=== PATIENT | male | born 1940 | race Caucasian/White ===

== ENCOUNTER 2016-04-04 14:14 | Inpatient (IN) | payer OTHER, BC ==
[~2016-04-04] VITALS: Ht 182.9 cm; Wt 112.5 kg
[~2016-04-04 14:14] MED LIST: CMD5 PO; CTP1X PO; LOSA100T26 PO; LSX20 PO; MBXC PO; POTA1POW PO; PROTONIX IV; WARF5TAB90 PO
[2016-04-04] MEDS ORDERED: HydrALAZINE HCL 20 MG/ML VIAL IV. STA (14:48)
[2016-04-04 15:09] LABS: BASO % 0.3 %; BASO ABS # 0.02 K/uL (0-0.2); COMPLETE YES; EOS % 1.2 %; HEMATOCRIT 46.7 % (42-52); LYMPH % 11.6 %; LYMPH ABS # 0.67 K/uL (1.2-3.4); MEAN CELL VOLUME 88.4 fL (80-100); MEAN CORPUSCULAR HEMOGLOBIN 29.2 pg (25-34); MEAN PLATELET VOLUME 10.7 fL (7.4-10.4); MONO % 11.6 %; NEUT % 75.3 %; PLATELET COUNT 149 K/uL (130-400); RED BLOOD COUNT 5.28 M/uL (4.7-6.1); WHITE BLOOD COUNT 5.78 K/uL (4.8-10.8)
[2016-04-04 15:10] LABS: INR 1.5 (0.9-1.1); PROTHROMBIN TIME (PATIENT) 16.8 SECONDS (9.0-12.0)
[2016-04-04 15:11] LABS: BUN/CREATININE RATIO 14.6 (10-20); CALCIUM 9.5 mg/dl (8.5-10.1); CREATININE 1.4 mg/dl (0.60-1.40); POTASSIUM 3.4 mmol/L (3.5-5.1)
[2016-04-04] MEDS ORDERED: CLONIDINE HCL 0.1 MG TAB PO ONE (15:30)
[2016-04-04] MEDS ORDERED: MAGN400T6 PO (15:35)
[2016-04-04] MEDS ORDERED: FERR50TA3 (15:35)
[2016-04-04] MEDS ORDERED: LOSA1TAB38 PO (15:35)
[2016-04-04] MEDS ORDERED: CLON0.2T PO (15:35)
[2016-04-04] MEDS ORDERED: CYAN100073 PO (15:35)
--- NOTE | 2016-04-04 15:42 | EMERGENCY ROOM VISIT NOTE ---
History First contact with patient: 14:44 Chief Complaint: HYPERTENSION Stated Complaint: DOUBLE VISION AND HIGH BLOOD PRESSURE History of Present Illness The patient is a 75 year old male who presents to the Emergency Room with complaints of double vision. Patient was playing with granddaughter 2 days ago when the double vision suddenly came on. He denies blurred vision, eye pain, flashes or floaters or pain with eye movements. The double vision has been stable and persistent. He did stop taking his Clonidine at that time as well because he thought it might help improve his symptoms bit it did not. He denies any auditory/acoustic symptoms including hearing loss, vertigo. He has long-standing stable tinnitus. He denies any aphasia or dysphasia. He has had no focal weakness or altered sensation. He continues to ambulate without difficulty. Given his symptoms, he was seen by the demolition crane operator this morning. He was also noted to be hypertensive with a BP of 170/110. They recommended ED for further evaluation. At present he continues to have double vision. which is vertical. He only gets double vision when looking with both eyes. His double vision is in all directions. He sees vertically overlapping images. Regarding his blood pressure, he denies chest pain, shortness of breath, headache or swelling. Review of Systems A 10 point review of systems was negative unless stated above. Past Medical/Surgical History Medical Problems: (1) Atrial Fibrillation (2) GI bleed (3) Heart Valve Transplant (4) History of oral cancer (5) Hypertension (6) Hypertension Nos (7) Tinnitus Nos Surgical Problems: (1) H/O mitral valve replacement with mechanical valve (2) History of dental surgery (3) History of mandibular surgery (4) S/P cholecystectomy (5) S/P ERCP Family History Diabetes mellitus SISTER Heart disease Social History Smoking Status: Never Smoker Smokeless Tobacco Use: No Alcohol Use: none Drug Use: none Marital Status: Housing Status: lives with family Occupation Status: retired Current/Historical Medications Scheduled Clonidine Hcl (Catapres), 1 TAB PO BID Losartan Potassium (Cozaar), 1 TAB PO DAILY Warfarin Sod (Coumadin), 2.5 MG PO UD Warfarin Sodium (Coumadin), 5 MG PO UD Miscellaneous Medications Cyanocobalamin (B12) Ferrous Sulfate (Iron (Ferrous Sulfate)), 65 MG Magnesium Oxide (Mag-Ox), 400 MG PO Allergies Coded Allergies: Allopurinol (Unverified Allergy, Unknown, unknown, 04/04/16) Lisinopril (Verified Adverse Reaction, Unknown, COUGH, 01/12/16) Physical Exam Vital Signs Date Time Temp Pulse Resp B/P Pulse Ox O2 Delivery O2 Flow Rate FiO2 04/04/16 17:45 59 140/82 04/04/16 17:24 68 22 182/107 94 04/04/16 16:45 138/87 04/04/16 16:31 69 161/93 04/04/16 16:00 65 194/119 04/04/16 15:47 70 22 212/99 94 Room Air 04/04/16 15:30 73 201/112 04/04/16 15:20 78 232/127 04/04/16 15:10 69 217/129 04/04/16 15:02 71 218/144 95 04/04/16 14:55 70 04/04/16 14:36 76 263/140 04/04/16 14:30 36.8 78 18 237/154 91 Room Air Pain Rating (0-10): 0 Physical Exam Constitutional: Vital signs as above were reviewed. Eyes: Pupils equal, round, and reactive to light. Extraocular muscles are intact. No proptosis. No photophobia. Fundi could not be visualized as a pupils were not adequately dilating with light ENT: Mucous membranes are moist. Oropharynx is clear. No sinus tenderness. TMs are clear bilaterally. Cardiovascular: Heart with a regular rate and rhythm. Pulses are palpable and symmetric in all 4 extremities. No pedal edema appreciated. Respiratory: Lungs clear to auscultation bilaterally. No wheezes, rales, or rhonchi appreciated. No accessory muscle use. No retractions. No increased work of breathing. GI: Abdomen soft, nontender, nondistended. Normal active bowel sounds. No abdominal hernias appreciated. No rebound. No guarding. : No CVA tenderness appreciated. Musculoskeletal: No midline cervical or vertebral tenderness. No gross deformities. No bony tenderness. No calf swelling or tenderness. Integumentary: Warm, dry, no rashes appreciated. Neurological: Patient awake, alert, and oriented x 3. Cranial nerves two through 12 grossly intact. Motor 5 out of 5 strength bilateral upper and lower extremities. Normal EOMI, Pupils equal round and reactive Negative Pronator Drift Normal finger-nose testing Lymph: No cervical lymphadenopathy appreciated. Medical Decision & Procedures ER Provider Diagnostic Interpretation: CT OF THE HEAD WITHOUT CONTRAST CLINICAL HISTORY: Diplopia, on coumadin; rule out bleed COMPARISON STUDY: No previous studies for comparison. CT DOSE: 537.48 mGy.cm TECHNIQUE: Helical axial images of the head were obtained without IV contrast. Automated exposure control was utilized for the study. FINDINGS: No acute intracranial hemorrhage, midline shift or mass effect is present. Ventricular system is normal. The basilar cisterns are patent. There are no extra-axial collections. A 2.4 cm focus of encephalomalacia within the right parieto-occipital region is consistent with an old infarct. There is an old 1 cm lacunar infarct within the left thalamus. There is a 0.8 cm age indeterminate lacunar infarct within the right thalamus. There are no findings to suggest acute dural sinus thrombosis or acute territorial infarct. There may be old infarcts within the bilateral cerebellar hemispheres. There are no significant calvarial abnormalities. Visualized portions of the sinuses and mastoid air cells are clear. IMPRESSION: 1. No acute intracranial hemorrhage or mass effect. 2. Multiple old infarcts, as described above. 3. Age indeterminate 8 mm lacunar infarct within the right thalamus. Electronically signed by: Hu Barlow M.D. 04/04/2016 3:49 PM Dictated Date/Time: 04/04/2016 3:45 PM Laboratory Results 04/04/16 14:40 Red Blood Count 5.28, Mean Corpuscular Volume 88.4, Mean Corpuscular Hemoglobin 29.2, Mean Corpuscular Hemoglobin Concent 33.0, Mean Platelet Volume 10.7, Neutrophils (%) (Auto) 75.3, Lymphocytes (%) (Auto) 11.6, Monocytes (%) (Auto) 11.6, Eosinophils (%) (Auto) 1.2, Basophils (%) (Auto) 0.3, Neutrophils # (Auto ) 4.35, Lymphocytes # (Auto) 0.67, Monocytes # (Auto) 0.67, Eosinophils # (Auto ) 0.07, Basophils # (Auto) 0.02 04/04/16 14:40 Test 04/04/16 14:40 White Blood Count 5.78 K/uL (4.8-10.8) Red Blood Count 5.28 M/uL (4.7-6.1) Hemoglobin 15.4 g/dL (14.0-18.0) Hematocrit 46.7 % (42-52) Mean Corpuscular Volume 88.4 fL (80-100) Mean Corpuscular Hemoglobin 29.2 pg (25-34) Mean Corpuscular Hemoglobin Concent 33.0 g/dl (32-36) Platelet Count 149 K/uL (130-400) Mean Platelet Volume 10.7 fL (7.4-10.4) Neutrophils (%) (Auto) 75.3 % Lymphocytes (%) (Auto) 11.6 % Monocytes (%) (Auto) 11.6 % Eosinophils (%) (Auto) 1.2 % Basophils (%) (Auto) 0.3 % Neutrophils # (Auto) 4.35 K/uL (1.4-6.5) Lymphocytes # (Auto) 0.67 K/uL (1.2-3.4) Monocytes # (Auto) 0.67 K/uL (0.11-0.59) Eosinophils # (Auto) 0.07 K/uL (0-0.5) Basophils # (Auto) 0.02 K/uL (0-0.2) RDW Standard Deviation 43.6 fL (36.4-46.3) RDW Coefficient of Variation 13.5 % (11.5-14.5) Immature Granulocyte % (Auto) 0.0 % Immature Granulocyte # (Auto) 0.00 K/uL (0.00-0.02) Prothrombin Time 16.8 SECONDS (9.0-12.0) Prothromb Time International Ratio 1.5 (0.9-1.1) Anion Gap 7.0 mmol/L (3-11) Est Creatinine Clear Calc Drug Dose 58.8 ml/min Estimated GFR () 56.2 Estimated GFR (Non- 48.5 BUN/Creatinine Ratio 14.6 (10-20) Calcium Level 9.5 mg/dl (8.5-10.1) Medications Administered Medications (Trade) Dose Ordered Sig/Maryjane Route Start Time Stop Time Status Last Admin Dose Admin Hydralazine HCl (HydrALAZINE INJ) 10 mg NOW STAT IV. 04/04/16 14:48 04/04/16 14:49 DC 04/04/16 15:04 10 MG Clonidine HCl (Catapres Tab) 0.2 mg NOW ONCE PO 2/6/17 15:30 04/04/16 15:31 DC 04/04/16 15:49 0.2 MG ECG Change: Atrial fibrillation T wave abnormality, consider inferior ischemia Abnormal ECG When compared with ECG of 30-SEP-2015 10:21, No significant change was found ED Course 14:50 - Patient evaluated Orders: CBC, BMP, 10 mg Hydralazine BP 263/140 15:20 - Precepted case with Dr. Aggarwal CT brain non-contrast ordered 0.2 mg Clonidine PO Stat 16:30 - CT brain reviewed; multiple old infarcts noted BP reviewed; improved to 194/119 Patient comfortable, no pain or distress 17:35 - Discussed case with Dr. Aggarwal; decision made to admit for further evaluation in light of new CT findings BP improved to 140 systolic Patient remains comfortable 18:00 - Case discussed with Jenny Alfonso PA-C for [facility]. She will admit the patient for further evaluation 18:10 - Plan discussed with patient Patient doing well at this time. No pain or concerns. Patient awaiting admission in stable condition 16:20 Nurse notifed that BP in the 110s systolic Patient remains comfortable and asymptomatic; no action unless patient develops symptoms Medical Decision A thorough history was obtained, physical examination performed and the EMR was reviewed. The case was reviewed multiple times over with Dr. Rainer Aggarwal during the patient's ED visit. Patient presents with acute double vision that has persisted for the past 48 hours. Patient does have Afib and is found to be subtherapeutic on Warfarin with INR of 1.5. Concern is for acute CVA. Other differentials to consider include, demyelination (MS), intracranial hemorrhage, extraocular muscle entrapment. Patient was seen by ophthalmology this morning who had concerns for a CN IV palsy. Imaging on the CT scan does reveal multiple old infarcts within the right parieto-occipital region, let thalamus and possibly multiple old infarcts in cerebellum. In light of these findings, patient requires admission for further evaluation as to the etiology of the strokes. Patient was also profoundly hypertensive on admission, presumable a rebound effect of acutely stopping his clonidine. His BP improved dramatically with 1 dose of Hydralazine and 1 dose of 0.2 mg Clonidine. There were no symptoms or abnormal laboratory values to indicate that patient was having hypertensive crisis. Patient remained asymptomatic as BP was gradually brought down. The [facility] service was notified of the patient who will admit him for further evaluation. Impression Primary Impression: Double vision with both eyes open Additional Impressions: Hypertensive urgency CVA, old, disturbances of vision Departure Information Dispostion Being Evaluated By Hospitalist Condition GOOD Referrals Joe Sherman M.D. (PCP) Patient Instructions My [facility] Problem Qualifiers
--- NOTE | 2016-04-04 15:51 | DIAGNOSTIC IMAGING REPORT ---
CT OF THE HEAD WITHOUT CONTRAST CLINICAL HISTORY: Diplopia, on coumadin; rule out bleed COMPARISON STUDY: No previous studies for comparison. CT DOSE: 537.48 mGy.cm TECHNIQUE: Helical axial images of the head were obtained without IV contrast. Automated exposure control was utilized for the study. FINDINGS: No acute intracranial hemorrhage, midline shift or mass effect is present. Ventricular system is normal. The basilar cisterns are patent. There are no extra-axial collections. A 2.4 cm focus of encephalomalacia within the right parieto-occipital region is consistent with an old infarct. There is an old 1 cm lacunar infarct within the left thalamus. There is a 0.8 cm age indeterminate lacunar infarct within the right thalamus. There are no findings to suggest acute dural sinus thrombosis or acute territorial infarct. There may be old infarcts within the bilateral cerebellar hemispheres. There are no significant calvarial abnormalities. Visualized portions of the sinuses and mastoid air cells are clear. IMPRESSION: 1. No acute intracranial hemorrhage or mass effect. 2. Multiple old infarcts, as described above. 3. Age indeterminate 8 mm lacunar infarct within the right thalamus. Electronically signed by: Hu Barlow M.D. 04/04/2016 3:49 PM Dictated Date/Time: 04/04/2016 3:45 PM
[2016-04-04] MEDS ORDERED: ONDANSETRON INJ 2 MG/ML 2 ML VIAL IV PRN (19:00)
[2016-04-04] MEDS ORDERED: PHARMACIST DISCHARGE MED REC CONSULT PRN (19:00)
[2016-04-04] MEDS ORDERED: ACETAMINOPHEN 325 MG TAB PO PRN (19:00)
[2016-04-04] MEDS ORDERED: LOSA100T26 PO (19:12)
[2016-04-04] MEDS ORDERED: MAGN400T5 PO (19:12)
[2016-04-04] MEDS ORDERED: MBXC PO (19:12)
[2016-04-04] MEDS ORDERED: FERR50TA3 PO (19:12)
[2016-04-04] MEDS ORDERED: POTASSIUM CHLORIDE 10 MEQ TABCR PO STA (19:39)
--- NOTE | 2016-04-04 20:23 | EMERGENCY ROOM VISIT NOTE ---
History Report prepared by Kimberlyn: Chela Moyer Under the Supervision of: Dr. Rainer Aggarwal M.D. First contact with patient: 14:44 Chief Complaint: HYPERTENSION Stated Complaint: DOUBLE VISION AND HIGH BLOOD PRESSURE History of Present Illness The patient is a 75 year old male who presents to the Emergency Room with complaints of persistent visual disturbances that began 2 days ago. The patient reports that he has double vision when looking through both of his eyes. His symptoms started out of the blue suddenly and are improved when he covers one of his eyes. The patient states that the images he is seeing are about an inch apart vertically. It seems to be worse when he is looking down. He does not notice any difference with the double vision when objects are near vs. far. Denies flashes, floaters, eye pain, or eye movement problems. The patient is on Clonidine due to a history of hypertension and discontinued taking it when his symptoms began 2 days ago because he had a previous intolerance to Clonidine. He thought that possibly the clonidine was causing his double vision. When he was on it in the past he had increased drowsiness. He never had similar double vision when he was on it before. The patient has a history of a-fib and a mitral valve replacement. He is on Coumadin. He does not have a history of a stroke. Denies headaches, chest pain, shortness of breath, speech trouble, confusion, abnormal gait, unilateral weakness, unilateral numbness, or other complaints. He was initially seen by ophthalmology this morning and was referred to the ER for further work-up. Source of History: patient Onset: 2 days ago Position: other (neurological) Quality: other (vertical double vision) Timing: other (persistent) Modifying Factors (Relieving): other (covering one eye) Associated Symptoms: No SOB, No chest pain, No headache, No numbness, No weakness Review of Systems See HPI for pertinent positives & negatives. A total of 10 systems reviewed and were otherwise negative. Past Medical & Surgical Medical Problems: (1) Atrial Fibrillation (2) GI bleed (3) Heart Valve Transplant (4) History of lower GI bleeding (5) History of oral cancer (6) Hypertension (7) Hypertension Nos (8) Tinnitus Nos Surgical Problems: (1) H/O colonoscopy (2) H/O mitral valve replacement with mechanical valve (3) History of dental surgery (4) History of mandibular surgery (5) S/P cholecystectomy (6) S/P ERCP Family History Diabetes mellitus SISTER Heart disease Social History Smoking Status: Never Smoker Alcohol Use: none Drug Use: none Marital Status: Housing Status: lives with family Occupation Status: retired Current/Historical Medications Scheduled Clonidine Hcl (Catapres), Unknown Dose PO HS Cyanocobalamin (B12), Unknown Dose PO DAILY Ferrous Sulfate (Iron (Ferrous Sulfate)), 1 TAB PO DAILY Losartan Potassium & Hydrochlo (Losartan Potassium/Hydroc), 1 TAB PO DAILY Magic Swizzle (Magic Swizzle - SUCRALFA/ALUM/MAG/DIPHEN/LIDO), 15-30 TSP PO ACHS Magnesium Oxide (Mag-Ox), 1 TAB PO DAILY Warfarin Sod (Coumadin), 2.5 MG PO UD Warfarin Sodium (Coumadin), 5 MG PO UD Scheduled PRN Furosemide (Furosemide), 20 MG PO DAILY PRN for weight gain or edema Potassium Chloride (K-Tab), 20 MEQ PO UD PRN for with furosemide Allergies Coded Allergies: Allopurinol (Unverified Allergy, Unknown, unknown, 04/04/16) Lisinopril (Verified Adverse Reaction, Unknown, COUGH, 01/12/16) Physical Exam Vital Signs Date Time Temp Pulse Resp B/P Pulse Ox O2 Delivery O2 Flow Rate FiO2 04/04/16 19:48 45 18 153/72 95 Room Air 04/04/16 18:38 46 04/04/16 18:37 48 118/70 04/04/16 18:14 50 120/76 93 Room Air 04/04/16 17:45 59 140/82 04/04/16 17:24 68 22 182/107 94 04/04/16 16:45 138/87 04/04/16 16:31 69 161/93 04/04/16 16:00 65 194/119 04/04/16 15:47 70 22 212/99 94 Room Air 04/04/16 15:30 73 201/112 04/04/16 15:20 78 232/127 04/04/16 15:10 69 217/129 04/04/16 15:02 71 218/144 95 04/04/16 14:55 70 04/04/16 14:36 76 263/140 04/04/16 14:30 36.8 78 18 237/154 91 Room Air Physical Exam Constitutional: Vital signs reviewed. Severely hypertensive. Eyes: Pupils are equal round reactive to light. Conjunctiva are noninjected. ENT: Pharynx is clear without erythema or exudate. Mucous membranes are moist. Neck supple without meningeal signs. Respiratory: Clear to auscultation bilaterally. Breath sounds are equal bilaterally. Cardiovascular: Regular rate and rhythm. No rubs or gallops. GI: Soft, nondistended and nontender. Bowel sounds are present. Musculoskeletal: No peripheral edema. No lower extremity tenderness. Integumentary: No cyanosis. Neurological: The patient is awake and alert. Cranial nerves II-XII are intact. Motor is 5 out of 5 all extremities. Sensation is intact to light touch all extremities. Normal speech. No pronator drift. He has a vertical diplopia, worse when looking down. Psychiatric: Normal affect. Medical Decision & Procedures ER Provider Diagnostic Interpretation: Radiology results as stated below per my review and the radiologist's interpretation: CT OF THE HEAD WITHOUT CONTRAST CLINICAL HISTORY: Diplopia, on coumadin; rule out bleed COMPARISON STUDY: No previous studies for comparison. CT DOSE: 537.48 mGy.cm TECHNIQUE: Helical axial images of the head were obtained without IV contrast. Automated exposure control was utilized for the study. FINDINGS: No acute intracranial hemorrhage, midline shift or mass effect is present. Ventricular system is normal. The basilar cisterns are patent. There are no extra-axial collections. A 2.4 cm focus of encephalomalacia within the right parieto-occipital region is consistent with an old infarct. There is an old 1 cm lacunar infarct within the left thalamus. There is a 0.8 cm age indeterminate lacunar infarct within the right thalamus. There are no findings to suggest acute dural sinus thrombosis or acute territorial infarct. There may be old infarcts within the bilateral cerebellar hemispheres. There are no significant calvarial abnormalities. Visualized portions of the sinuses and mastoid air cells are clear. IMPRESSION: 1. No acute intracranial hemorrhage or mass effect. 2. Multiple old infarcts, as described above. 3. Age indeterminate 8 mm lacunar infarct within the right thalamus. Electronically signed by: Hu Barlow M.D. 04/04/2016 3:49 PM Dictated Date/Time: 04/04/2016 3:45 PM Laboratory Results 04/04/16 14:40 Red Blood Count 5.28, Mean Corpuscular Volume 88.4, Mean Corpuscular Hemoglobin 29.2, Mean Corpuscular Hemoglobin Concent 33.0, Mean Platelet Volume 10.7, Neutrophils (%) (Auto) 75.3, Lymphocytes (%) (Auto) 11.6, Monocytes (%) (Auto) 11.6, Eosinophils (%) (Auto) 1.2, Basophils (%) (Auto) 0.3, Neutrophils # (Auto ) 4.35, Lymphocytes # (Auto) 0.67, Monocytes # (Auto) 0.67, Eosinophils # (Auto ) 0.07, Basophils # (Auto) 0.02 04/04/16 14:40 Test 04/04/16 14:40 White Blood Count 5.78 K/uL (4.8-10.8) Red Blood Count 5.28 M/uL (4.7-6.1) Hemoglobin 15.4 g/dL (14.0-18.0) Hematocrit 46.7 % (42-52) Mean Corpuscular Volume 88.4 fL (80-100) Mean Corpuscular Hemoglobin 29.2 pg (25-34) Mean Corpuscular Hemoglobin Concent 33.0 g/dl (32-36) Platelet Count 149 K/uL (130-400) Mean Platelet Volume 10.7 fL (7.4-10.4) Neutrophils (%) (Auto) 75.3 % Lymphocytes (%) (Auto) 11.6 % Monocytes (%) (Auto) 11.6 % Eosinophils (%) (Auto) 1.2 % Basophils (%) (Auto) 0.3 % Neutrophils # (Auto) 4.35 K/uL (1.4-6.5) Lymphocytes # (Auto) 0.67 K/uL (1.2-3.4) Monocytes # (Auto) 0.67 K/uL (0.11-0.59) Eosinophils # (Auto) 0.07 K/uL (0-0.5) Basophils # (Auto) 0.02 K/uL (0-0.2) RDW Standard Deviation 43.6 fL (36.4-46.3) RDW Coefficient of Variation 13.5 % (11.5-14.5) Immature Granulocyte % (Auto) 0.0 % Immature Granulocyte # (Auto) 0.00 K/uL (0.00-0.02) Prothrombin Time 16.8 SECONDS (9.0-12.0) Prothromb Time International Ratio 1.5 (0.9-1.1) Anion Gap 7.0 mmol/L (3-11) Est Creatinine Clear Calc Drug Dose 58.8 ml/min Estimated GFR () 56.2 Estimated GFR (Non- 48.5 BUN/Creatinine Ratio 14.6 (10-20) Calcium Level 9.5 mg/dl (8.5-10.1) Laboratory results as reviewed by me. Medications Administered Medications (Trade) Dose Ordered Sig/Maryjane Route Start Time Stop Time Status Last Admin Dose Admin Hydralazine HCl (HydrALAZINE INJ) 10 mg NOW STAT IV. 04/04/16 14:48 04/04/16 14:49 DC 04/04/16 15:04 10 MG Clonidine HCl (Catapres Tab) 0.2 mg NOW ONCE PO 04/04/16 15:30 04/04/16 15:31 DC 04/04/16 15:49 0.2 MG ECG Indication: other (hypertension) Rate (beats per minute): 77 Rhythm: atrial fibrillation Findings: T-wave inversion (Inferior), other (no ST elevation) ED Course 1448: Hydralazine HCl 10 mg IV was ordered. 1531: The patient was evaluated in room C3. A complete history and physical exam was performed. Clonidine HCl 0.2 mg PO was ordered. 1700: The patient was reassessed. Results were discussed with the patient and his family. They were in agreement. 1804: The case was discussed with Cierra Alfonso PA-C - [facility]. The patient will be evaluated for further management. Medical Decision This is a 75-year-old male who presents with double vision and hypertension. Differential diagnosis includes CVA, cranial nerve palsy, intracranial hemorrhage, intracranial mass, metabolic derangement. I did perform a limited focused review of portions of the patient's old chart on the electronic medical record. The patient has had no recent pertinent visits to this hospital. I did evaluate the patient as noted above. The patient was seen by an take up operator prior to arrival here. He was sent here by the take up operator for further workup and evaluation. IV access was established. The patient was placed on a continuous triage technician. The patient is severely hypertensive. The patient was given hydralazine 10 mg IV by the resident prior to my evaluation. He was given clonidine by mouth as the patient has been noncompliant with his medication. I did personally review the patient's 12- lead EKG and chest x-ray as described above. I did review the patient's blood work as noted in the electronic medical record. I did order a CT of the head. I did review the images myself as well as the radiology report as described above. The patient has multiple old infarcts but no acute infarct. I did reassess the patient. His blood pressure was nearly normotensive but then suddenly shot up to 190 diastolic after I told him he needed to be hospitalized. The patient continues have diplopia but has no other symptoms. He denies any headache. He is not lightheaded. I did recommend hospitalization for further evaluation of his symptom as well as further control of his blood pressure. The case was discussed with the hospitalist and caser in. Resident Physician Supervision Note: I did evaluate and examine this patient myself. I did guide management for the patient. I agree with the resident's (Dr. Malcolm ) assessment as discussed. Please see the resident's dictation for further details. Consults Time Called: 1705 Consulting Physician: KACI Paniagua [facility] Returned Call: [phone] The case was discussed with her. The patient will be evaluated for further management. Impression Primary Impression: Binocular vision disorder with diplopia Additional Impressions: HTN (hypertension) Noncompliance with medication regimen Scribe Attestation The scribe's documentation has been prepared under my direct and personally reviewed by me in its entirety. I confirm that the note above accurately reflects all work, treatment, procedures, and medical decision making performed by me. Departure Information Dispostion Being Evaluated By Hospitalist Referrals Joe Sherman M.D. (PCP) Patient Instructions My [facility] Problem Qualifiers
--- NOTE | 2016-04-04 20:41 | DIAGNOSTIC IMAGING REPORT ---
ULTRASOUND OF THE CAROTID ARTERIES CLINICAL HISTORY: Stroke COMPARISON STUDY: None. TECHNIQUE: Real-time, grayscale, and color Doppler sonography of the carotid arteries was performed. Imaging reviewed in the transverse and longitudinal planes. NASCET criteria was utilized for stenosis calcification. FINDINGS: There is mild to moderate atherosclerotic plaque present bilateral. The peak systolic velocity within the right internal carotid artery is 129 cm/sec. The systolic velocity ratio of right internal to common carotid artery is 1.5. The peak systolic velocity within the left internal carotid artery is 112 cm/sec. The systolic velocity ratio left internal to common carotid artery is 1.0. There is a 33% diameter narrowing of the distal left common carotid artery. Antegrade flow is seen in the vertebral arteries. The external carotid arteries are patent. Blood pressure in the right arm measured 140 mm/Hg. Blood pressure in the left arm measured 234 mm/Hg. IMPRESSION: Moderate bilateral atheromatous changes. No evidence of hemodynamically significant carotid stenosis. Electronically signed by: Usama Spencer M.D. 04/04/2016 8:40 PM Dictated Date/Time: 04/04/2016 8:38 PM
--- NOTE | 2016-04-04 20:59 | History and Physical ---
History & Physical Date & Time of Service: Apr 04, 2016 at 19:14 Chief Complaint: Double Vision And High Blood Pressure Primary Care Physician: Joe Sherman M.D. History of Present Illness Source: patient, clinic records, hospital records This is a 75 year old male with chronic atrial fibrillation, history of mechanical mitral valve replacement, on Coumadin history of lower GI bleed in , labile hypertension, hx tongue and tonsillar CA treated in 2002, and other problems listed below who presents to the ED with diplopia x 2 days. Patient states 2 days ago he developed sudden onset of diplopia which has been constant from that time. He states it is horizontal and only occurs with both eyes open. He attributed his symptoms to clonidine so he stopped taking 2 days ago. Patient saw ophthalmology this morning and was noted to be hypertensive to 170s systolic and was sent to the ER. BLLE edema has been at baseline and has not taken furosemide in past few days. He did take losartan-HCTZ this morning. He denies CONTRERAS, dizziness blurred vision, facial numbness or drooping, speech or swallowing difficulty, focal numbness or weakness, fever, chills, URI symptoms, cough, SOB, chest pain, palpitations, abdominal pain, N/V/D, urinary changes, recent abnormal bleeding. Pt denies history of TIA or CVA. In the ER patient found to be hypertensive as high as 260s systolic. He was treated with hydralazine 10 mg IV and clonidine 0.2 mg PO with normalization of BP. In the ER his HR was initially normal but became bradycardic to 40s-50s. Pt notes prior hx of bradycardia and states he was considered for pacemaker in the past. Pt denies prior hx of CVA or TIA. 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 One 6 mm, recently bleeding polyp in the ascending colon. Treated with bipolar cautery. An actively bleeding ulcer at presumed polypectomy site in the ascending colon. Hemostasis established with epinephrine injection, bipolar coagulation, and placement of clips. An ulcer at presumed polypectomy site in the transverse colon. Clot removed and clips (MR conditional) were placed. Diverticulosis in the sigmoid colon. Blood in the entire examined colon. No specimens collected." [place] [facility] [place] "7 mm cecal polyp s/p cold snare and clip closure. Post polypectomy ulcer with pigmented protuberance and residual polyp s/p cold snaring of residual polyp and clip closure. Post polypectomy ulcer with adherent clot s/p injection of dilute epinephrine, snare removal of clot revealing visible vessel, snare removal of misplaced clips and complete closure with hemostatic clip. 3 mm polyp in the transverse colon s/p cold snare. Internal hemorrhoids. 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; s/p chordal rupture Status: Chronic (3) History of dental surgery Status: Chronic (4) History of mandibular surgery Status: Chronic (5) S/P cholecystectomy Status: Chronic (6) S/P ERCP Status: Chronic Family History Diabetes mellitus SISTER Heart disease Social History Smoking Status: Never Smoker Smokeless Tobacco Use: No Alcohol Use: none Drug Use: none Marital Status: Housing status: lives with significant other Occupational Status: retired Immunizations History of Influenza Vaccine: Yes Influenza Vaccine Date: Jan 01, 2008 History of Tetanus Vaccine?: No History of Pneumococcal: Yes Pneumococcal Date: Jan 01, 2008 History of Hepatitis B Vaccine: No Multi-Drug Resistant Organisms History of MDRO: No Allergies Coded Allergies: Allopurinol (Unverified Allergy, Unknown, unknown, 04/04/16) Lisinopril (Verified Adverse Reaction, Unknown, COUGH, 01/12/16) Home Medications Scheduled Clonidine Hcl (Catapres), Unknown Dose PO HS Cyanocobalamin (B12), Unknown Dose PO DAILY Ferrous Sulfate (Iron (Ferrous Sulfate)), 1 TAB PO DAILY Losartan Potassium & Hydrochlo (Losartan Potassium/Hydroc), 1 TAB PO DAILY Magic Swizzle (Magic Swizzle - SUCRALFA/ALUM/MAG/DIPHEN/LIDO), 15-30 TSP PO ACHS Magnesium Oxide (Mag-Ox), 1 TAB PO DAILY Warfarin Sod (Coumadin), 2.5 MG PO UD Warfarin Sodium (Coumadin), 5 MG PO UD Scheduled PRN Furosemide (Furosemide), 20 MG PO DAILY PRN for weight gain or edema Potassium Chloride (K-Tab), 20 MEQ PO UD PRN for with furosemide Review of Systems Constitutional: No chills, No fever Eyes: + diplopia, No problem reported (no blurred vision) ENT: No problem reported (no URI symptoms), No trouble swallowing Respiratory: No cough, No shortness of breath Cardiovascular: + edema (BLLE edema- no worsening rom baseline), No chest pain , No palpitations Abdomen: No GI bleeding (no GI bleeding since December 2015), No diarrhea, No nausea, No pain, No vomiting Musculoskeletal: No calf pain Genitourinary - Male: No dysuria, No urinary frequency, No urinary urgency Neurologic: No numbness/tingling, No problem reported (no dizziness, CONTRERAS, or head trauma), No weakness Hematologic / Lymphatic: No abnormal bleeding/bruising Physical Exam Vital Signs Date Time Temp Pulse Resp B/P Pulse Ox O2 Delivery O2 Flow Rate FiO2 04/04/16 18:38 46 04/04/16 18:37 48 118/70 04/04/16 18:14 50 120/76 93 Room Air 04/04/16 17:45 59 140/82 04/04/16 17:24 68 22 182/107 94 04/04/16 16:45 138/87 04/04/16 16:31 69 161/93 04/04/16 16:00 65 194/119 04/04/16 15:47 70 22 212/99 94 Room Air 04/04/16 15:30 73 201/112 04/04/16 15:20 78 232/127 04/04/16 15:10 69 217/129 04/04/16 15:02 71 218/144 95 04/04/16 14:55 70 04/04/16 14:36 76 263/140 04/04/16 14:30 36.8 78 18 237/154 91 Room Air General Appearance: WD/WN, no apparent distress, + pertinent finding (pleasant cooperative alert 75 year old male, no distress) Head: normocephalic, atraumatic Eyes: normal inspection, PERRL, EOMI Respiratory/Chest: lungs clear, normal breath sounds, no respiratory distress, no accessory muscle use Cardiovascular: normal peripheral pulses, + bradycardia (HR 40s, improved to 50s), + irregularly irregular, + pertinent finding (mechanical valve sound) Abdomen/GI: normal bowel sounds, non tender, soft Extremities/Musculoskelatal: no calf tenderness, + pertinent finding (trace pretibial edema BLLE) Neurologic/Psych: bilingual patient support caseworker II-XII nml as tested, no motor/sensory deficits, alert, normal mood/affect, oriented x 3, + pertinent finding (finger to nose intact bilaterally) Skin: warm/dry, + pertinent finding (chronic venous stasis changes BLLE) Diagnostics Laboratory Results Results Past 24 Hours Test 04/04/16 14:40 Range/Units White Blood Count 5.78 4.8-10.8 K/uL Red Blood Count 5.28 4.7-6.1 M/uL Hemoglobin 15.4 14.0-18.0 g/dL Hematocrit 46.7 42-52 % Mean Corpuscular Volume 88.4 80-100 fL Mean Corpuscular Hemoglobin 29.2 25-34 pg Mean Corpuscular Hemoglobin Concent 33.0 32-36 g/dl Platelet Count 149 130-400 K/uL Mean Platelet Volume 10.7 7.4-10.4 fL Neutrophils (%) (Auto) 75.3 % Lymphocytes (%) (Auto) 11.6 % Monocytes (%) (Auto) 11.6 % Eosinophils (%) (Auto) 1.2 % Basophils (%) (Auto) 0.3 % Neutrophils # (Auto) 4.35 1.4-6.5 K/uL Lymphocytes # (Auto) 0.67 1.2-3.4 K/uL Monocytes # (Auto) 0.67 0.11-0.59 K/uL Eosinophils # (Auto) 0.07 0-0.5 K/uL Basophils # (Auto) 0.02 0-0.2 K/uL RDW Standard Deviation 43.6 36.4-46.3 fL RDW Coefficient of Variation 13.5 11.5-14.5 % Immature Granulocyte % (Auto) 0.0 % Immature Granulocyte # (Auto) 0.00 0.00-0.02 K/uL Prothrombin Time 16.8 9.0-12.0 SECONDS Prothromb Time International Ratio 1.5 0.9-1.1 Sodium Level 139 136-145 mmol/L Potassium Level 3.4 3.5-5.1 mmol/L Chloride Level 101 98-107 mmol/L Carbon Dioxide Level 31 21-32 mmol/L Anion Gap 7.0 3-11 mmol/L Blood Urea Nitrogen 20 7-18 mg/dl Creatinine 1.40 0.60-1.40 mg/dl Est Creatinine Clear Calc Drug Dose 58.8 ml/min Estimated GFR () 56.2 Estimated GFR (Non- 48.5 BUN/Creatinine Ratio 14.6 10-20 Random Glucose 133 70-99 mg/dl Calcium Level 9.5 8.5-10.1 mg/dl Diagnostic Radiology CT OF THE HEAD WITHOUT CONTRAST CLINICAL HISTORY: Diplopia, on coumadin; rule out bleed COMPARISON STUDY: No previous studies for comparison. CT DOSE: 537.48 mGy.cm TECHNIQUE: Helical axial images of the head were obtained without IV contrast. Automated exposure control was utilized for the study. FINDINGS: No acute intracranial hemorrhage, midline shift or mass effect is present. Ventricular system is normal. The basilar cisterns are patent. There are no extra-axial collections. A 2.4 cm focus of encephalomalacia within the right parieto-occipital region is consistent with an old infarct. There is an old 1 cm lacunar infarct within the left thalamus. There is a 0.8 cm age indeterminate lacunar infarct within the right thalamus. There are no findings to suggest acute dural sinus thrombosis or acute territorial infarct. There may be old infarcts within the bilateral cerebellar hemispheres. There are no significant calvarial abnormalities. Visualized portions of the sinuses and mastoid air cells are clear. IMPRESSION: 1. No acute intracranial hemorrhage or mass effect. 2. Multiple old infarcts, as described above. 3. Age indeterminate 8 mm lacunar infarct within the right thalamus. EKG Initial EKG- atrial fibrillation, nonspecific T wave inversion in III and aVF- no significant change from prior EKG Repeat EKG- bradycardia, no P waves noted, rate 47 bpm, nonspecific T wave inversion in III and aVF Impression Assessment and Plan DIPLOPIA Possible TIA; r/o CVA CT head- no acute hemorrhage or mass effect, + multiple old infarcts, + age indeterminate 8 mm lacunar infarct right thalamus Has underlying chronic atrial fibrillation and mechanical mitral valve on Coumadin; INR is subtherapeutic (1.5) with goal of 2.5-3.5 I am unable to access last echo from 01/18/2016 or prior echos in [facility] at this time Check MRI brain, carotid Doppler, echo with bubble study Aspirin will be added Neuro checks PT/ OT evaluations Consult neurology HYPERTENSIVE URGENCY BP initially high as 260s/ 150's in ER; in setting of missed home dose of clonidine x 2 days Treated in ER with hydralazine 10 mg IV and clonidine 0.2 mg SBP lowered to 110s, then 150s Will allow permissive hypertension due to question of acute CVA Hold losartan-HCTZ and clonidine for now Monitor BP BRADYCARDIA HR initially normal then became bradycardic to 40-s-50s in ER, asymptomatic Repeat EKG shows bradycardia rate 47, no P waves noted, possibly atrial fibrillation with slow ventricular response Check TSH in am Consult cardiology HYPOKALEMIA PO replacement ordered Check magnesium Monitor electrolytes PROSTHETIC MITRAL VALVE Replaced in 1994 s/p chordal rupture/acute mitral valve insufficiency [facility] mechanical On Coumadin; INR subtherapeutic at 1.5 (goal 2.5-3.5) Due for Coumadin tonight (2.5 mg) - will give 5 mg instead and then reassess INR in am Add heparin SQ 5000 units q8h HISTORY OF GI BLEED Had lower GI bleed in December 2015 which occurred s/p polypectomy done at [facility] on 01/12/16 Required 3 units PRBC and [place] [facility] [place] Colonoscopy Dr Simmons on 01/13- Cauterization of recently bleeding polyp, clip placement at multiple polypectomy bleeding bases [place] [facility] [place] 7 mm cecal polyp s/p cold snare and clip closure. Post polypectomy ulcer with pigmented protuberance and residual polyp s/p cold snaring of residual polyp and clip closure. Post polypectomy ulcer with adherent clot s/p injection of dilute epinephrine, snare removal of clot revealing visible vessel, snare removal of misplaced clips and complete closure with hemostatic clip. 3 mm polyp in the transverse colon s/p cold snare. Internal hemorrhoids. Poor colon preparation with solid stool precluding visualization of the third polypectomy site." Denies recurrent GI bleeding HX OF ORAL CANCER Continue magic mouthwash ACHS- verified with pharmacist that this is safe in bradycardia DVT PROPHYLAXIS On Coumadin- INR subtherapeutic; Heparin SQ 5000 units q8h added CODE STATUS Full code per my discussion with the patient DISPOSITION Admitted to telemetry PCP is Dr. Joe Sherman Patient seen in collaboration with Dr. Metz. Please see his addendum. Attending Addendum Pt was seen and examined. Agreed with Naty WATKINS's exam, assessment and plan. 75 year old male with chronic atrial fibrillation, history of mechanical mitral valve replacement, on Coumadin, history of lower GI bleed in 12/2015, labile hypertension, hx tongue and tonsillar CA treated in 2002 presents to the ED with diplopia x 2 days. she was sent from the ophthalmology office for hypertensive urgency. General- no acute distress Head- atraumatic Eyes- PERRL, EOMI ENT- oropharynx clear Neck- supple, no JVD Lungs- clear to auscultation and percussion A/P DIPLOPIA Possible related to TIA vs hypertensive urgency CT head showed No acute intracranial hemorrhage or mass effect Carotid u/s showed moderate bilateral atheromatous changes. No evidence of hemodynamically significant carotid stenosis Neuro checks PT/ OT evaluations Consult neurology HYPERTENSIVE URGENCY BP initially high as 260s/ 150's in ER; due to rebound htn from missing clonidine dose Received Hydralazine in the ER that dropped BP too low allow permissive htn hold BP med for tonight since BP dropped more than 25% in the 1st few hours. Lab, imaging and EKG reviewed Please refer to Naty WATKINS's documentation for other problems. Kassandra Metz MD VTE Prophylaxis VTE Risk Assessment Done? Y/N: Yes Risk Level: Moderate
[2016-04-04] MEDS ORDERED: WARFARIN SOD 5 MG TAB PO ONE (21:00)
[2016-04-04 21:16] VITALS: BP 149/89; PULSE 54; TEMP 36.9; O2SAT 94; Ht 182.9 cm; Wt 112.5 kg
[2016-04-04] MEDS ORDERED: POTASSIUM CHLORIDE 10 MEQ TABCR PO ONE (21:45)
[2016-04-04] MEDS: HEPARIN SOD 5000 UNIT/0.5 ML CARP SQ SCH (21:48)
[2016-04-04 23:20] VITALS: BP 116/74; PULSE 46; TEMP 36.5; O2SAT 95
[2016-04-05] VITALS (10 sets, daily range): BP systolic 122–184; BP diastolic 68–98; PULSE 46–79; TEMP 36.6–37; O2SAT 91–98
[2016-04-05] MEDS: HEPARIN SOD 5000 UNIT/0.5 ML CARP SQ SCH ×3 (06:05→21:49)
[2016-04-05 06:51] LABS: ESTIMATED AVERAGE GLUCOSE 123 mg/dl; HA1C FLAG Normal (Normal)
[2016-04-05 07:35] LABS: BASO % 0.5 %; BASO ABS # 0.02 K/uL (0-0.2); COMPLETE YES; EOS % 1.3 %; HEMATOCRIT 42.8 % (42-52); IG% 0.3 %; LYMPH % 19.1 %; LYMPH ABS # 0.71 K/uL (1.2-3.4); MEAN CELL VOLUME 89.5 fL (80-100); MEAN CORPUSCULAR HEMOGLOBIN 29.3 pg (25-34); MEAN CORPUSCULAR HGB CONC 32.7 g/dl (32-36); MEAN PLATELET VOLUME 10.5 fL (7.4-10.4); MONO % 13.4 %; NEUT % 65.4 %; PLATELET COUNT 122 K/uL (130-400); RED BLOOD COUNT 4.78 M/uL (4.7-6.1); WHITE BLOOD COUNT 3.72 K/uL (4.8-10.8)
[2016-04-05 07:39] LABS: INR 1.4 (0.9-1.1); PROTHROMBIN TIME (PATIENT) 15.6 SECONDS (9.0-12.0)
[2016-04-05 07:54] LABS: BUN/CREATININE RATIO 16.4 (10-20); CALCIUM 8.8 mg/dl (8.5-10.1); CREATININE 1.2 mg/dl (0.60-1.40); MAGNESIUM 2.3 mg/dl (1.8-2.4); POTASSIUM 3.8 mmol/L (3.5-5.1)
[2016-04-05 08:05] LABS: CHOLESTEROL/HDL RATIO 2.6; THYROID STIMULATING HORMONE 1.85 uIu/ml (0.300-4.500)
[2016-04-05] MEDS: MAGNESIUM OXIDE 400 MG TAB PO SCH (08:11)
[2016-04-05] MEDS: FERROUS SULFATE 325 MG TAB PO SCH (08:11)
[2016-04-05] MEDS: ASPIRIN 81 MG ECTAB PO SCH (08:11)
--- NOTE | 2016-04-05 10:36 | CARDIOLOGY CONSULTATION ---
DATE OF CONSULTATION: 04/05/2016 REFERRING PHYSICIAN: [facility]. REASON FOR CONSULTATION: Hypertension. HISTORY OF PRESENT ILLNESS: This is a 75-year-old male patient who is usually followed by Dr. Adryan Milan through our clinic. In 1994, he had a ruptured mitral valve chordae and went on to have surgery with mitral valve replacement, receiving a [facility] mechanical valve. He has been on Coumadin followed by the coagulation clinic at [facility] since that event. He also has a history of chronic atrial fibrillation. He has been treated for labile hypertension. He also has a history of squamous cell carcinoma of the tonsil, status post radiation therapy. Two days prior to admission, the patient developed visual changes in his right eye. He thought it was due to clonidine, which he takes for blood pressure and stopped this medication. He was seen by ophthalmology, who noted that they did not feel his visual changes were related to the eye, but maybe a central effect. He was noted to be markedly hypertensive, probably from a rebound effect from clonidine and referred to the Emergency Department, where he was admitted with hypertensive urgency. He has been restarted on his medications and his hypertension is improved. He has had a CT of the brain performed, which shows multiple previous infarcts, including an 8-mm lacunar infarct in the right thalamus area. There were no acute findings. The patient is to have an MRI of the brain today. He has no complaints this morning from a cardiac standpoint; however, he was bradycardic through the night with a slow atrial fibrillation. It should be noted that his blood pressure medications have been held as his blood pressure has come down significantly since yesterday. One of these medications are negative inotropes that I would suspect could cause his bradycardia. ALLERGIES: ALLOPURINOL AND LISINOPRIL. PAST MEDICAL HISTORY: As outlined in history of chief complaint, the patient has a mechanical mitral valve that was placed in 1994 due to chordae rupture. He has chronic atrial fibrillation and labile hypertension. He also has a history of squamous cell carcinoma of the tonsils, treated with radiation. SOCIAL HISTORY: He lives with his . He is a nonsmoker. FAMILY MEDICAL HISTORY: Noncontributory. REVIEW OF SYSTEMS: A 10-point review of systems is negative except for the history of chief complaint. PHYSICAL EXAMINATION: GENERAL: He is alert and oriented in no acute distress. VITAL SIGNS: Blood pressure is 160/90, pulse is irregular at 50 beats per minute. He is afebrile. HEENT: He seems to have a slight right facial droop. Mucous membranes are moist. NECK: The neck veins are flat. Carotids have good upstrokes bilaterally without bruits. Thyroid is nonpalpable. RESPIRATORY: Breath sounds equal bilaterally and clear to auscultation. CARDIOVASCULAR: Heart has an irregular rhythm. There is a mechanical S1. No S3 or S4. GASTROINTESTINAL: Abdomen is soft and nontender without organomegaly. EXTREMITIES: Free of edema, digit clubbing, or cyanosis. NEUROLOGIC: Grossly intact. SKIN: Warm to touch. LYMPH NODES: Negative to palpation. LABORATORY DATA: Hemoglobin is 14. Creatinine is 1.2 and potassium is 3.8. IMPRESSION: 1. Hypertensive crisis due to rebound effect from clonidine. 2. Recent visual changes, most likely due to a stroke. 3. Multiple previous small strokes on the CT scan of the brain, which may be embolic due to his mechanical mitral valve and atrial fibrillation. 4. Mechanical mitral valve. 5. Chronic atrial fibrillation. 6. History of squamous cell carcinoma of the tonsil. RECOMMENDATIONS: From a cardiac standpoint, the patient is stable. He is to have an MRI of the brain today to further evaluate his visual changes. As noted above, he saw an development associate yesterday, who felt that the visual changes were not related to his right eye, but indicated to be more central. The neurology consult is pending. We will follow along with you during his hospital stay.
--- NOTE | 2016-04-05 11:10 | Progress Note ---
Internal Med Progress Note Date of Service: Apr 05, 2016. Provider Documentation: SUBJECTIVE: Patient continues to c/o diplopia. No localized weakness, nausea, vomiting, headache, blurry vision, numbness/ tingling, vertigo, syncope. No chest pain, SOB, fever, chills. OBJECTIVE: Vital Signs-as noted below Exam: General-AAOX3, no distress Eyes-Diplopia + which disappears when closes one eye Neck-Supple, no carotid bruits, no JVD Lungs-AEBE, no wheezing, rhonchi Heart-S1, S2 normal, murmur + Abdomen-Soft, non tender, non distended, BS present Extremities-No edema Neuro-AAOX3, Diplopia +, No facial droop, Power- 5/5, Sensory normal Lab data as noted below. Diagnostic Radiology CT OF THE HEAD WITHOUT CONTRAST CLINICAL HISTORY: Diplopia, on coumadin; rule out bleed COMPARISON STUDY: No previous studies for comparison. CT DOSE: 537.48 mGy.cm TECHNIQUE: Helical axial images of the head were obtained without IV contrast. Automated exposure control was utilized for the study. FINDINGS: No acute intracranial hemorrhage, midline shift or mass effect is present. Ventricular system is normal. The basilar cisterns are patent. There are no extra-axial collections. A 2.4 cm focus of encephalomalacia within the right parieto-occipital region is consistent with an old infarct. There is an old 1 cm lacunar infarct within the left thalamus. There is a 0.8 cm age indeterminate lacunar infarct within the right thalamus. There are no findings to suggest acute dural sinus thrombosis or acute territorial infarct. There may be old infarcts within the bilateral cerebellar hemispheres. There are no significant calvarial abnormalities. Visualized portions of the sinuses and mastoid air cells are clear. IMPRESSION: 1. No acute intracranial hemorrhage or mass effect. 2. Multiple old infarcts, as described above. 3. Age indeterminate 8 mm lacunar infarct within the right thalamus. EKG Initial EKG- atrial fibrillation, nonspecific T wave inversion in III and aVF- no significant change from prior EKG Repeat EKG- bradycardia, no P waves noted, rate 47 bpm, nonspecific T wave inversion in III and aVF ASSESSMENT & PLAN: Assessment and Plan DIPLOPIA Probably stroke, as per ophthalmology exam- normal eye exam, was sent to ED due to hypertensive urgency and rule out stroke Risk factors: Chronic atrial fibrillation, mechanical mitral valve on coumadin with subtherapeutic INR -Work up- CT head- no acute hemorrhage or mass effect, + multiple old infarcts , + age indeterminate 8 mm lacunar infarct right thalamus; US carotid- Moderate bilateral atheromatous changes with no hemodynamically significant stenosis, Echo- -MRI pending -ASA 81 mg started, on coumadin -Neurology consulted HYPERTENSIVE URGENCY BP initially high as 260s/ 150's in ER; in setting of missed home dose of clonidine x 2 days Treated in ER with hydralazine 10 mg IV and clonidine 0.2 mg Now BP 160/78 -Will allow permissive hypertension due to question of acute CVA -Hold losartan-HCTZ and clonidine for now as BP per goal -Monitor BP CHRONIC ATRIAL FIBRILLATION WITH SLOW VENTRICULAR RESPONSE HR initially normal then became bradycardic to 40-s-50s in ER, asymptomatic -Cardiology consulted. 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 -Will continue with Heparin 5000 q 8 hours, will avoid therapeutic anticoagulation due to recent hx of GI bleeding requiring transfer to [facility]. Follow up MRI, may need to consider it though if stroke +nt. Will discuss with cardiology, neurology depending on results. HISTORY OF GI BLEED Had lower GI bleed in December 2015 which occurred s/p polypectomy done at [facility] on 01/12/16 Required 3 units PRBC and transfer to [facility] for persistent bleeding Colonoscopy Dr Simmons on 01/13- Cauterization of recently bleeding polyp, clip placement at multiple polypectomy bleeding bases Colonoscopy [facility] 01/18/16- 7 mm cecal polyp s/p cold snare and clip closure. Post polypectomy ulcer with pigmented protuberance and residual polyp s/p cold snaring of residual polyp and clip closure. Post polypectomy ulcer with adherent clot s/p injection of dilute epinephrine, snare removal of clot revealing visible vessel, snare removal of misplaced clips and complete closure with hemostatic clip. 3 mm polyp in the transverse colon s/p cold snare. Internal hemorrhoids. Poor colon preparation with solid stool precluding visualization of the third polypectomy site." -Denies recurrent GI bleeding HX OF ORAL CANCER S/P RADIATION -Continue magic mouthwash ACHS DVT PROPHYLAXIS On Coumadin- INR subtherapeutic; Heparin SQ 5000 units q8h CODE STATUS Full code per my discussion with the patient DISPOSITION To be determined. Discussed with by bedside. Vital Signs: Date Time Temp Pulse Resp B/P Pulse Ox O2 Delivery O2 Flow Rate FiO2 04/05/16 08:00 Room Air 04/05/16 07:43 36.8 50 20 160/98 95 04/05/16 04:00 95 Room Air 04/05/16 03:34 36.6 46 16 122/68 95 Room Air 04/05/16 00:01 95 Room Air 04/04/16 23:20 36.5 46 18 116/74 95 Room Air 04/04/16 21:16 36.9 54 18 149/89 94 Room Air 04/04/16 19:48 45 18 153/72 95 Room Air 04/04/16 18:38 46 04/04/16 18:37 48 118/70 04/04/16 18:14 50 120/76 93 Room Air 04/04/16 17:45 59 140/82 04/04/16 17:24 68 22 182/107 94 04/04/16 16:45 138/87 04/04/16 16:31 69 161/93 04/04/16 16:00 65 194/119 04/04/16 15:47 70 22 212/99 94 Room Air 04/04/16 15:30 73 201/112 04/04/16 15:20 78 232/127 04/04/16 15:10 69 217/129 04/04/16 15:02 71 218/144 95 04/04/16 14:55 70 04/04/16 14:36 76 263/140 04/04/16 14:30 36.8 78 18 237/154 91 Room Air Lab Results: Results Past 24 Hours Test 04/04/16 14:40 04/05/16 06:50 Range/Units White Blood Count 5.78 3.72 4.8-10.8 K/uL Red Blood Count 5.28 4.78 4.7-6.1 M/uL Hemoglobin 15.4 14.0 14.0-18.0 g/dL Hematocrit 46.7 42.8 42-52 % Mean Corpuscular Volume 88.4 89.5 80-100 fL Mean Corpuscular Hemoglobin 29.2 29.3 25-34 pg Mean Corpuscular Hemoglobin Concent 33.0 32.7 32-36 g/dl Platelet Count 149 122 130-400 K/uL Mean Platelet Volume 10.7 10.5 7.4-10.4 fL Neutrophils (%) (Auto) 75.3 65.4 % Lymphocytes (%) (Auto) 11.6 19.1 % Monocytes (%) (Auto) 11.6 13.4 % Eosinophils (%) (Auto) 1.2 1.3 % Basophils (%) (Auto) 0.3 0.5 % Neutrophils # (Auto) 4.35 2.43 1.4-6.5 K/uL Lymphocytes # (Auto) 0.67 0.71 1.2-3.4 K/uL Monocytes # (Auto) 0.67 0.50 0.11-0.59 K/uL Eosinophils # (Auto) 0.07 0.05 0-0.5 K/uL Basophils # (Auto) 0.02 0.02 0-0.2 K/uL RDW Standard Deviation 43.6 45.0 36.4-46.3 fL RDW Coefficient of Variation 13.5 13.7 11.5-14.5 % Immature Granulocyte % (Auto) 0.0 0.3 % Immature Granulocyte # (Auto) 0.00 0.01 0.00-0.02 K/uL Prothrombin Time 16.8 15.6 9.0-12.0 SECONDS Prothromb Time International Ratio 1.5 1.4 0.9-1.1 Sodium Level 139 140 136-145 mmol/L Potassium Level 3.4 3.8 3.5-5.1 mmol/L Chloride Level 101 101 98-107 mmol/L Carbon Dioxide Level 31 31 21-32 mmol/L Anion Gap 7.0 8.0 3-11 mmol/L Blood Urea Nitrogen 20 20 7-18 mg/dl Creatinine 1.40 1.20 0.60-1.40 mg/dl Est Creatinine Clear Calc Drug Dose 58.8 65.1 ml/min Estimated GFR () 56.2 67.7 Estimated GFR (Non- 48.5 58.4 BUN/Creatinine Ratio 14.6 16.4 10-20 Random Glucose 133 112 70-99 mg/dl Estimated Average Glucose 123 mg/dl Hemoglobin A1c 5.9 4.5-5.6 % Calcium Level 9.5 8.8 8.5-10.1 mg/dl Magnesium Level 2.0 2.3 1.8-2.4 mg/dl Triglycerides Level 123 0-150 mg/dl Cholesterol Level 123 0-200 mg/dl HDL Cholesterol 47 mg/dl LDL Cholesterol, Calculated 51 mg/dl VLDL Cholesterol, Calculated 25 mg/dl Cholesterol/HDL Ratio 2.6 Thyroid Stimulating Hormone (TSH) 1.850 0.300-4.500 uIu/ml
--- NOTE | 2016-04-05 11:16 | ECHOCARDIOGRAM REPORT ---
*NOTICE TO RECEIVING LIBERTARIAN AGENCY This information is strictly Confidential and protected under [place] law. [place] law prohibits you from making any further disclosure of this information unless further disclosure is expressly permitted by the written consent of the person to whom it pertains or is authorized by law. A general authorization for the release of medical or other information is not sufficient for this purpose. Hospital accepts no responsibility if the information is made available to any other person, INCLUDING THE PATIENT. Interpretation Summary * Name: ERLINDA RAO Study Date: 04/05/2016 08:12 AM BP: 160/98 mmHg * Patient Location: C.2T\S\S240\S\2 HR: 50 * : 1940 (M/d/yyyy) Gender: Male Height: 72 in * Age: 75 yrs Ethnicity: CA Weight: 253 lb * Ordering Physician: Stephanie Alfonso * Referring Physician: Santino John D.O. * Performed By: Sarah Mejia RDCS * * Reason For Study: R/O CVA * BSA: 2.4 m2 * History: R/O CVA * -- Conclusions -- * Normal LV chamber size with moderate concentric LVH. * Normal LV systolic function, EF 55-60%. * No segmental left ventricular wall motion abnormalities are noted. * Abnormal diastolic dysfunction by presence of left atrial enlargement. * Aortic valve sclerosis moderate, without significant aortic valvular stenosis. * There is a mechanical mitral valve. * Doppler evidence of mitral regurgitation is normal for this valve. * Prosthetic mitral valve peak and/or mean gradients are normal. * Severe biatrial enlargement. * Intact interatrial septum. * Moderate aortic root enlargement. Procedure Details * A complete two-dimensional transthoracic echocardiogram was performed (2D, M-mode, Doppler and color flow Doppler). * A saline contrast injection was performed to assess for cardiac shunting. * The injection was performed through an intravenous line in the right arm. * The attending nurse who injected the saline contrast was MYLES SOLIS RN. * A total of 20 cc of agitated saline was given. Left Ventricle * The left ventricle is normal in size. * There is moderate concentric left ventricular hypertrophy. * Ejection Fraction = 55-60%. * Left ventricular systolic function is normal. * No segmental left ventricular wall motion abnormalities are noted. * The left ventricular wall motion is normal. Right Ventricle * The right ventricular cavity size is normal (basal dimension <4.2 cm in right ventricular apical 4-chamber view). * The right ventricular systolic function is normal as assessed by tricuspid annular plane systolic excursion (TAPSE) (normal >1.5 cm). Atria * The left atrium is severely dilated. * The right atrium is severely dilated. * The interatrial septum is intact with no evidence for an atrial septal defect. Mitral Valve * There is a mechanical mitral valve. * Doppler evidence of mitral regurgitation is normal for this valve. * Prosthetic mitral valve peak and/or mean gradients are normal. Tricuspid Valve * The tricuspid valve is normal in structure and function. Aortic Valve * The aortic valve is trileaflet. * Aortic valve sclerosis moderate, without significant aortic valvular stenosis. * There is no significant aortic regurgitation. Pulmonic Valve * The pulmonary valve is not well seen, but the Doppler examination is normal without significant regurgitation or stenosis. Great Vessels * Moderate aortic root dilatation. Pericardium/Pleural * There is no pericardial effusion. MMode 2D Measurements and Calculations IVSd 1.7 cm IVSs 2.2 cm LVIDd 4.3 cm LVIDs 3.1 cm LVPWd 2.0 cm LVPWs 2.0 cm IVS/LVPW 0.87 FS 27.9 % EDV(Teich) 84.1 ml ESV(Teich) 38.4 ml EF(Teich) 54.3 % EDV(cubed) 80.7 ml ESV(cubed) 30.3 ml EF(cubed) 62.5 % % IVS thick 28.0 % % LVPW thick -1.01 % LV mass(C)d 365.1 grams LV mass(C)dI 155.1 grams/m\S\2 LV mass(C)s 298.3 grams LV mass(C)sI 126.7 grams/m\S\2 SV(Teich) 45.7 ml SI(Teich) 19.4 ml/m\S\2 SV(cubed) 50.5 ml SI(cubed) 21.4 ml/m\S\2 Ao root diam 4.6 cm Ao root area 16.5 cm\S\2 LA dimension 5.8 cm LA/Ao 1.3 LVAd ap4 38.8 cm\S\2 LVLd ap4 9.1 cm EDV(MOD-sp4) 135.7 ml EDV(sp4-el) 140.4 ml LVAs ap4 23.3 cm\S\2 LVLs ap4 7.8 cm ESV(MOD-sp4) 61.4 ml ESV(sp4-el) 59.2 ml EF(MOD-sp4) 54.7 % EF(sp4-el) 57.8 % LVAd ap2 35.7 cm\S\2 LVLd ap2 9.3 cm EDV(MOD-sp2) 117.2 ml EDV(sp2-el) 115.8 ml LVAs ap2 22.9 cm\S\2 LVLs ap2 8.2 cm ESV(MOD-sp2) 58.8 ml ESV(sp2-el) 54.2 ml EF(MOD-sp2) 49.8 % EF(sp2-el) 53.2 % LVLd %diff 2.6 % EDV(MOD-bp) 126.9 ml LVLs %diff 4.9 % ESV(MOD-bp) 60.8 ml EF(MOD-bp) 52.1 % SV(MOD-sp4) 74.3 ml SI(MOD-sp4) 31.6 ml/m\S\2 SV(MOD-sp2) 58.4 ml SI(MOD-sp2) 24.8 ml/m\S\2 SV(MOD-bp) 66.1 ml SI(MOD-bp) 28.1 ml/m\S\2 SV(sp4-el) 81.1 ml SI(sp4-el) 34.5 ml/m\S\2 SV(sp2-el) 61.7 ml SI(sp2-el) 26.2 ml/m\S\2 Doppler Measurements and Calculations MV E max magdiel 183.5 cm/sec MV dec time 0.43 sec Ao V2 max 171.0 cm/sec Ao max PG 11.7 mmHg Ao max PG (full) 8.2 mmHg LV V1 max PG 3.5 mmHg LV V1 max 93.5 cm/sec TR max magdiel 373.5 cm/sec
[2016-04-05] MEDS: HydrALAZINE HCL 20 MG/ML VIAL IV. PRN (11:55)
--- NOTE | 2016-04-05 14:46 | Neurology Consultation ---
Neurology Consultation Date of Consultation: Apr 05, 2016. Attending Physician: Pooja. Webber S Primary Care Physician: Joe Sherman M.D. 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 He developed sudden onset of diplopia he went to his emergency vehicle driver on Monday. It is horizontal and only occurs with both eyes open and he can tilt his head a certain way to eliminate the double vision. He was hypertensive to 170s systolic at the emergency vehicle driver and was sent to the ED for further evaluation. BLLE edema has been at baseline and has not taken furosemide in past few days. He denies CONTRERAS, dizziness blurred vision, facial numbness or drooping, one sided numbness tingling weakness, speech or swallowing difficulty, SOB, chest pain, palpitations, abdominal pain, N/V/D, urinary changes, recent abnormal bleeding. he states he has never had a stroke in the past. On arrival his BP was 260s systolic. He was treated with hydralazine 10 mg IV and clonidine 0.2 mg PO with normalization of BP. He has a history of bradycardia and states he was considered for pacemaker in the past. Past Medical/Surgical History Medical Problems: (1) Anemia Status: Acute (2) Binocular vision disorder with diplopia Status: Acute (3) Coagulopathy Status: Acute (4) CVA, old, disturbances of vision Status: Acute (5) Double vision with both eyes open Status: Acute (6) HTN (hypertension) Status: Acute (7) Hypertension Nos Status: Chronic (8) Hypertensive urgency Status: Acute (9) Noncompliance with medication regimen Status: Acute (10) Rectal bleeding Status: Acute Social History Smoking Status: Former smoker Smokeless Tobacco Use: No Alcohol Use: none Drug Use: none Marital Status: Housing Status: lives with family Occupation Status: retired Allergies Coded Allergies: Allopurinol (Unverified Allergy, Unknown, unknown, 04/04/16) Lisinopril (Verified Adverse Reaction, Unknown, COUGH, 11/15/16) Current Inpatient Medications Current Inpatient Medications Medications (Trade) Dose Ordered Sig/Maryjane Route Start Time Stop Time Status Last Admin Dose Admin Acetaminophen (Tylenol Tab) 650 mg Q4H PRN PO 04/04/16 19:00 05/04/16 18:59 Ondansetron HCl (Zofran Inj) 4 mg Q6H PRN IV 04/04/16 19:00 05/04/16 18:59 Miscellaneous Information (Pharmacist Discharge Med Rec Consult) 1 ea UD PRN N/A 04/04/16 19:00 05/04/16 18:59 Heparin Sodium (Porcine) (Heparin Sq 5000 Unit/0.5ml) 5,000 unit Q8 SQ 04/04/16 22:00 05/04/16 21:59 04/05/16 14:14 5,000 UNIT Ferrous Sulfate (Feosol Tab) 325 mg DAILY PO 04/05/16 09:00 05/05/16 08:59 04/05/16 08:11 325 MG Magnesium Oxide (Mag-Ox Tab) 400 mg DAILY PO 04/05/16 09:00 05/05/16 08:59 04/05/16 08:11 400 MG Warfarin Sodium (Coumadin Tab) 2.5 mg MoWeFr@1600 PO 04/06/16 16:00 05/06/16 15:59 Warfarin Sodium 5 mg SuTuThSa@1600 PO 04/05/16 16:00 05/05/16 15:59 Lidocaine HCl/ Diphenhydramine HCl/Al Hydroxide/ Mg Hydroxide/ Glycerin/ Sucralfate (VISCOUS LIDOCAINE 2% Soln/ Benadryl Syrup/ Maalox Susp/ Glycerin Anhydrous Soln/ Carafate Susp) ACHS MT 04/05/16 22:00 05/05/16 21:59 Aspirin (Ecotrin Tab) 81 mg QAM PO 04/05/16 09:00 05/05/16 08:59 04/05/16 08:11 81 MG Hydralazine HCl (HydrALAZINE INJ) 10 mg Q6H PRN IV. 04/05/16 11:15 05/05/16 11:14 04/05/16 11:55 10 MG Physical Exam Vital Signs (Past 24 Hrs): Date Time Temp Pulse Resp B/P Pulse Ox O2 Delivery O2 Flow Rate FiO2 04/05/16 12:50 79 166/79 2/7/17 12:50 71 133/76 04/05/16 12:00 36.8 50 18 184/82 98 04/05/16 12:00 Room Air 04/05/16 08:00 Room Air 04/05/16 07:43 36.8 50 20 160/98 95 04/05/16 04:00 95 Room Air 04/05/16 03:34 36.6 46 16 122/68 95 Room Air 04/05/16 00:01 95 Room Air 04/04/16 23:20 36.5 46 18 116/74 95 Room Air 04/04/16 21:16 36.9 54 18 149/89 94 Room Air 04/04/16 19:48 45 18 153/72 95 Room Air 04/04/16 18:38 46 04/04/16 18:37 48 118/70 04/04/16 18:14 50 120/76 93 Room Air 04/04/16 17:45 59 140/82 04/04/16 17:24 68 22 182/107 94 04/04/16 16:45 138/87 04/04/16 16:31 69 161/93 04/04/16 16:00 65 194/119 04/04/16 15:47 70 22 212/99 94 Room Air 04/04/16 15:30 73 201/112 04/04/16 15:20 78 232/127 04/04/16 15:10 69 217/129 04/04/16 15:02 71 218/144 95 04/04/16 14:55 70 04/04/16 14:36 76 263/140 04/04/16 14:30 36.8 78 18 237/154 91 Room Air Physical Exam: Constitutional: appearance nourished, healthy and normal Ears, Nose, Mouth and Throat: mucous membranes moist, no injection and skin normal, eyes normal Cardiovascular: normal S-1 and S-2 and regular rate and rhythm Respiratory: clear to auscultation (CTA) and no rales, rhonchi or wheeze Musculoskeletal: peripheral edema Skin: venous stasis bilaterally LE Eyes: extraocular muscles intact (EOMI) and pupils equal, round and reactive to light (PERRL) diplopia , gross visual muir in tact NEUROLOGIC EXAMINATION: Mental status: Alert and interactive Oriented to full date and location Oriented to person Speech fluent with no evidence of aphasia Cranial Nerves smile eye brow raise symmetric Reflexes: Deep tendon reflexes were symmetrical and graded 2/5. Plantar responses were flexor. Sensory: decrease sensation with cool touch bilaterally molina down vibration intact Coordination: finger to nose without bi pass with one eye closed Gait/Stance: lying in bed Motor: Negative for pronator drift of out stretched arms with eyes closed. 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 5/5 bilaterally, hip flex plantar flex ext 5/5 bilaterally Laboratory Results Past 24 Hours: 04/05/16 06:50 Red Blood Count 4.78, Mean Corpuscular Volume 89.5, Mean Corpuscular Hemoglobin 29.3, Mean Corpuscular Hemoglobin Concent 32.7, Mean Platelet Volume 10.5, Neutrophils (%) (Auto) 65.4, Lymphocytes (%) (Auto) 19.1, Monocytes (%) (Auto) 13.4, Eosinophils (%) (Auto) 1.3, Basophils (%) (Auto) 0.5, Neutrophils # (Auto ) 2.43, Lymphocytes # (Auto) 0.71, Monocytes # (Auto) 0.50, Eosinophils # (Auto ) 0.05, Basophils # (Auto) 0.02 04/05/16 06:50 Test 04/04/16 14:40 04/05/16 06:50 Estimated Average Glucose 123 mg/dl Hemoglobin A1c 5.9 % (4.5-5.6) White Blood Count 3.72 K/uL (4.8-10.8) Red Blood Count 4.78 M/uL (4.7-6.1) Hemoglobin 14.0 g/dL (14.0-18.0) Hematocrit 42.8 % (42-52) Mean Corpuscular Volume 89.5 fL (80-100) Mean Corpuscular Hemoglobin 29.3 pg (25-34) Mean Corpuscular Hemoglobin Concent 32.7 g/dl (32-36) Platelet Count 122 K/uL (130-400) Mean Platelet Volume 10.5 fL (7.4-10.4) Neutrophils (%) (Auto) 65.4 % Lymphocytes (%) (Auto) 19.1 % Monocytes (%) (Auto) 13.4 % Eosinophils (%) (Auto) 1.3 % Basophils (%) (Auto) 0.5 % Neutrophils # (Auto) 2.43 K/uL (1.4-6.5) Lymphocytes # (Auto) 0.71 K/uL (1.2-3.4) Monocytes # (Auto) 0.50 K/uL (0.11-0.59) Eosinophils # (Auto) 0.05 K/uL (0-0.5) Basophils # (Auto) 0.02 K/uL (0-0.2) RDW Standard Deviation 45.0 fL (36.4-46.3) RDW Coefficient of Variation 13.7 % (11.5-14.5) Immature Granulocyte % (Auto) 0.3 % Immature Granulocyte # (Auto) 0.01 K/uL (0.00-0.02) Prothrombin Time 15.6 SECONDS (9.0-12.0) Prothromb Time International Ratio 1.4 (0.9-1.1) Anion Gap 8.0 mmol/L (3-11) Est Creatinine Clear Calc Drug Dose 65.1 ml/min Estimated GFR () 67.7 Estimated GFR (Non- 58.4 BUN/Creatinine Ratio 16.4 (10-20) Calcium Level 8.8 mg/dl (8.5-10.1) Magnesium Level 2.3 mg/dl (1.8-2.4) Triglycerides Level 123 mg/dl (0-150) Cholesterol Level 123 mg/dl (0-200) HDL Cholesterol 47 mg/dl LDL Cholesterol, Calculated 51 mg/dl VLDL Cholesterol, Calculated 25 mg/dl Cholesterol/HDL Ratio 2.6 Thyroid Stimulating Hormone (TSH) 1.850 uIu/ml (0.300-4.500) Imaging CT head- No acute intracranial hemorrhage, midline shift or mass effect is present. Ventricular system is normal. The basilar cisterns are patent. There are no extra-axial collections. A 2.4 cm focus of encephalomalacia within the right parieto-occipital region is consistent with an old infarct. There is an old 1 cm lacunar infarct within the left thalamus. There is a 0.8 cm age indeterminate lacunar infarct within the right thalamus. There are no findings to suggest acute dural sinus thrombosis or acute territorial infarct. There may be old infarcts within the bilateral cerebellar hemispheres. There are no significant calvarial abnormalities. Visualized portions of the sinuses and mastoid air cells are clear. TTE- Normal LV chamber size with moderate concentric LVH. * Normal LV systolic function, EF 55-60%. * No segmental left ventricular wall motion abnormalities are noted. * Abnormal diastolic dysfunction by presence of left atrial enlargement. * Aortic valve sclerosis moderate, without significant aortic valvular stenosis. * There is a mechanical mitral valve. * Doppler evidence of mitral regurgitation is normal for this valve. * Prosthetic mitral valve peak and/or mean gradients are normal. * Severe biatrial enlargement. * Intact interatrial septum. * Moderate aortic root enlargement. carotid doppler - Moderate bilateral atheromatous changes. No evidence of hemodynamically significant carotid stenosis Impression 75 year old male s/p diplopia with old infarcts on CT head Plan 1. permissive hypertension considering patient age 2. will need INR therapeutic for heart valve criteria 3. GI bleed in recent past would use caution without bridging 4. past history of SSC with radiation to tongue 5. optimize cholesterol, blood pressure once evaluation for stroke is complete 6. does not appear to have any PT/OT needs or swallowing issues 7. MRI brain -old strokes and new midline central stroke 8. further recommendations once MRI is completed I have seen and discussed above patient with Dr Shane Sheppard. Patient seen and examined He has what is likely a skew deviation with vertical diplopia on forward gaze not worsened by vertical pr horizontal eye movements and without nystagmus and with minor dysarthria at most ( he denies this is new ) The mri shows multiple old an presumptively embolic infarctions and the current very tiny area or fresh infarction in the rostral dorsal right midbrain is likely also embolic. Gi bleed issue is due to colonoscopy complications and not gastritis so we could add asa to coumadin if needed in the future but for now agree with maximizing inr on coumadin and trying to avoid antiplatelet combinations. Would observe and get inr optimized and then discharge Suspect diplopia with improve in sever weeks We will check back tomorrow Above reviewed with Aissatou Sheppard MD
[2016-04-05] MEDS ORDERED: WARFARIN SOD 5 MG TAB PO SCH (16:00)
--- NOTE | 2016-04-05 16:03 | DIAGNOSTIC IMAGING REPORT ---
MR ANGIOGRAM OF THE BRAIN CLINICAL HISTORY: Diplopia. Hypertension. COMPARISON STUDY: MRI of the brain performed concurrently on 04/05/2016. TECHNIQUE: 3-D [id number] MR angiography of the intracranial circulation is performed. 3-D tumble views are created and assessed. IV contrast was not administered for this examination. FINDINGS: The [place] of [place] is development of complete. The internal carotid arteries are widely patent bilaterally, as are the anterior and middle cerebral arteries. The vertebral arteries are widely patent. The right vertebral artery is dominant. The basilar artery is diminutive, and there are tiny T1 segments. The posterior cerebral arteries are predominantly supplied by large bilateral posterior communicating arteries. There is no aneurysm, high-grade stenosis, or focal vessel cutoff seen throughout the intracranial circulation. IMPRESSION: There is no aneurysm, high-grade stenosis, or focal vessel cutoff identified. See above. Electronically signed by: Isaac Keen M.D. 04/05/2016 4:02 PM Dictated Date/Time: 04/05/2016 3:59 PM
--- NOTE | 2016-04-05 16:05 | DIAGNOSTIC IMAGING REPORT ---
MRI OF THE BRAIN WITHOUT AND WITH IV CONTRAST CLINICAL HISTORY: Stroke, diplopia, hypertensive urgency, tonsillar carcinoma. COMPARISON STUDY: Head CT dated 04/04/2016 TECHNIQUE: MRI of the brain was performed from the vertex to the skull base utilizing various T1 and T2 weighted sequences. Following the IV administration of 10 mL of Gadavist contrast, additional enhanced images were obtained. FINDINGS: Sagittal T1, axial diffusion, proton density and T2 weighted axial, coronal FLAIR, and pre and post axial T1-weighted images were acquired. These were supplemented with post gadolinium coronal T1 weighted images. No intra or extra-axial mass lesions are visualized. There is an equivocal 2 mm acute infarct involving the right midbrain. There is no evidence of ventricular dilatation. Proton density T2-weighted and FLAIR images reveal scattered foci of increased T2 signal within the white matter, likely on a small vessel basis. There are multiple old cerebellar infarcts. There is an old right occipital lobe infarct. There are old bilateral thalamic infarcts. There are no abnormal flow voids. There is no evidence of pathologic enhancement. IMPRESSION: 1. No evidence of intracranial mass 2. Multiple old infarcts 3. Equivocal 2 mm acute infarct involving the right midbrain Electronically signed by: Usama Spencer M.D. 04/05/2016 4:04 PM Dictated Date/Time: 04/05/2016 4:00 PM
[2016-04-05] MEDS: LIDOCAINE HCL 2% MT SCH ×5 (21:49)
[2016-04-05] MEDS: VISCOUS MT SCH ×5 (21:49)
[2016-04-05] MEDS: [UNRECOGNIZED DRUG - OTHER] MT SCH ×5 (21:49)
[2016-04-05] MEDS: DIPHENHYDRAMINE HCL MT SCH ×5 (21:49)
[2016-04-06] VITALS (11 sets, daily range): BP systolic 132–195; BP diastolic 77–108; PULSE 59–85; TEMP 36.9–37.3; O2SAT 91–95
[2016-04-06] MEDS: HydrALAZINE HCL 20 MG/ML VIAL IV. PRN ×3 (03:11→15:30)
[2016-04-06] MEDS: HEPARIN SOD 5000 UNIT/0.5 ML CARP SQ SCH ×3 (05:51→20:28)
[2016-04-06 06:07] LABS: BASO % 0.2 %; BASO ABS # 0.01 K/uL (0-0.2); COMPLETE YES; EOS % 1.6 %; IG% 0.2 %; LYMPH % 17.9 %; LYMPH ABS # 0.76 K/uL (1.2-3.4); MEAN CELL VOLUME 88.2 fL (80-100); MEAN CORPUSCULAR HEMOGLOBIN 29.3 pg (25-34); MEAN CORPUSCULAR HGB CONC 33.2 g/dl (32-36); MEAN PLATELET VOLUME 10.5 fL (7.4-10.4); MONO % 13.9 %; NEUT % 66.2 %; PLATELET COUNT 124 K/uL (130-400); RED BLOOD COUNT 4.99 M/uL (4.7-6.1); WHITE BLOOD COUNT 4.25 K/uL (4.8-10.8)
[2016-04-06 06:13] LABS: INR 1.7 (0.9-1.1); PROTHROMBIN TIME (PATIENT) 18.1 SECONDS (9.0-12.0)
[2016-04-06 06:42] LABS: BUN/CREATININE RATIO 14.4 (10-20); CALCIUM 8.9 mg/dl (8.5-10.1); CREATININE 1.2 mg/dl (0.60-1.40); POTASSIUM 3.5 mmol/L (3.5-5.1)
[2016-04-06] MEDS: [UNRECOGNIZED DRUG - OTHER] MT SCH ×20 (07:05→20:22)
[2016-04-06] MEDS: DIPHENHYDRAMINE HCL MT SCH ×20 (07:05→20:22)
[2016-04-06] MEDS: LIDOCAINE HCL 2% MT SCH ×20 (07:05→20:22)
[2016-04-06] MEDS: VISCOUS MT SCH ×20 (07:05→20:22)
[2016-04-06] MEDS: MAGNESIUM OXIDE 400 MG TAB PO SCH (09:02)
[2016-04-06] MEDS: FERROUS SULFATE 325 MG TAB PO SCH (09:03)
[2016-04-06] MEDS: ASPIRIN 81 MG ECTAB PO SCH (09:03)
[2016-04-06] MEDS ORDERED: LOSARTAN/HCTZ 50-12.5 EA TAB PO ONE (10:15)
--- NOTE | 2016-04-06 11:36 | PROGRESS NOTE ---
DATE: 04/06/2016 FOLLOWUP VISIT SUBJECTIVE: Neurology consultation appreciated. The patient has had multiple small embolic strokes, most likely from his mechanical valve in the mitral position and atrial fibrillation. The patient is aware that his INR should be run between 2.5 and 3.5. He has been followed by the [facility] at [place]. He does state that his INR was elevated recently and the warfarin dosage was decreased. He was subtherapeutic when he presented to the hospital. He is currently on subQ heparin and I think that heparin should be continued until his INR is above 2.5. I have increased his warfarin to 5 mg daily. I also agree with the addition of aspirin. OBJECTIVE: VITAL SIGNS: Blood pressure is 170/100, pulse is regular at 85. GENERAL: He is afebrile. HEENT: He is normocephalic. He has a slight right facial droop. Mucous membranes are moist. NECK: The neck veins are flat. Carotids have good upstrokes bilaterally without bruits. Thyroid is nonpalpable. RESPIRATORY: Breath sounds equal bilaterally and clear to auscultation. CARDIOVASCULAR: Heart has a regular rhythm. Normal S1, S2. No S3, S4. No cardiac rubs or murmurs. GASTROINTESTINAL: Abdomen is soft, nontender without organomegaly. EXTREMITIES: Free of edema, digital clubbing, or cyanosis. NEUROLOGIC: Grossly intact. SKIN: Warm to touch. LYMPH NODES: Negative to palpation. LABORATORY DATA: INR is 1.7, creatinine is 1.2, potassium is 3.8. TSH is 1.85. IMPRESSION: 1. Multiple embolic strokes. 2. Mechanical mitral valve. 3. Chronic atrial fibrillation. 4. Hypertensive urgency. RECOMMENDATIONS: As outlined above, the patient's INR should be between 2.5 and 3.5. I would continue his heparin until he is therapeutic on his INR. I also agree with the addition of aspirin. He is running hypertensive and this was not an ischemic stroke but an embolic event. I think we should try to lower his blood pressure, so I will restart his Hyzaar today. I am uncertain as to whether clonidine is a good medication for this patient. He has been on it for a long time but it has been reinforced that he cannot stop it abruptly without having consequences of severe hypertension.
--- NOTE | 2016-04-06 13:53 | Progress Note ---
Internal Med Progress Note Date of Service: Apr 06, 2016. Provider Documentation: SUBJECTIVE: Patient continues to c/o diplopia, but improved. No localized weakness, nausea, vomiting, headache, blurry vision, numbness/ tingling, vertigo, syncope. No chest pain, SOB, fever, chills. OBJECTIVE: Vital Signs-as noted below Exam: General-AAOX3, no distress Eyes-Diplopia + which disappears when closes one eye Neck-Supple, no carotid bruits, no JVD Lungs-AEBE, no wheezing, rhonchi Heart-S1, S2 normal, murmur + Abdomen-Soft, non tender, non distended, BS present Extremities-No edema Neuro-AAOX3, Diplopia +, No facial droop, Power- 5/5, Sensory normal Lab data as noted below. Diagnostic Radiology CT OF THE HEAD WITHOUT CONTRAST CLINICAL HISTORY: Diplopia, on coumadin; rule out bleed COMPARISON STUDY: No previous studies for comparison. CT DOSE: 537.48 mGy.cm TECHNIQUE: Helical axial images of the head were obtained without IV contrast. Automated exposure control was utilized for the study. FINDINGS: No acute intracranial hemorrhage, midline shift or mass effect is present. Ventricular system is normal. The basilar cisterns are patent. There are no extra-axial collections. A 2.4 cm focus of encephalomalacia within the right parieto-occipital region is consistent with an old infarct. There is an old 1 cm lacunar infarct within the left thalamus. There is a 0.8 cm age indeterminate lacunar infarct within the right thalamus. There are no findings to suggest acute dural sinus thrombosis or acute territorial infarct. There may be old infarcts within the bilateral cerebellar hemispheres. There are no significant calvarial abnormalities. Visualized portions of the sinuses and mastoid air cells are clear. IMPRESSION: 1. No acute intracranial hemorrhage or mass effect. 2. Multiple old infarcts, as described above. 3. Age indeterminate 8 mm lacunar infarct within the right thalamus. EKG Initial EKG- atrial fibrillation, nonspecific T wave inversion in III and aVF- no significant change from prior EKG Repeat EKG- bradycardia, no P waves noted, rate 47 bpm, nonspecific T wave inversion in III and aVF MRI BRAIN IMPRESSION: 1. No evidence of intracranial mass 2. Multiple old infarcts 3. Equivocal 2 mm acute infarct involving the right midbrain ASSESSMENT & PLAN: Assessment and Plan STROKE, ACUTE RIGHT MIDBRAIN Presented with DIPLOPIA. Per ophthalmology exam- normal eye exam, was sent to ED due to hypertensive urgency and rule out stroke Risk factors: Chronic atrial fibrillation, mechanical mitral valve on coumadin with subtherapeutic INR -Work up- CT head- no acute hemorrhage or mass effect, + multiple old infarcts , + age indeterminate 8 mm lacunar infarct right thalamus; US carotid- Moderate bilateral atheromatous changes with no hemodynamically significant stenosis, Echo- Intact Interatrial septum, EF 55-60%, MRI brain- 2 mm acute infarct right midbrain, multiple old strokes, MRA brain- no acute abnormalities; LDL - 51 at goal -ASA 81 mg started, On coumadin with INR 1.7 -Avoiding Bridging with IV Heparin due to recent hx of GI bleeding, requiring transfer to [facility]. SQ heparin q 8 hours prophylactically -Needs to get INR therapeutic -Neurology consulted, appreciate inputs HYPERTENSIVE URGENCY BP initially high as 260s/ 150's in ER; in setting of missed home dose of clonidine x 2 days Treated in ER with hydralazine 10 mg IV and clonidine 0.2 mg -Permissive hypertension due to stroke -Losartan-HCTZ restarted by cardiology. Clonidine discontinued. -Monitor BP CHRONIC ATRIAL FIBRILLATION WITH SLOW VENTRICULAR RESPONSE HR initially normal then became bradycardic to 40-s-50s in ER, asymptomatic -Not on any beta blockers -Anticoagulation- coumadin, INR 1.7 -Cardiology consulted. 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 -Will continue with Heparin 5000 q 8 hours, will avoid therapeutic anticoagulation /bridging due to recent hx of GI bleeding [place] [facility] HISTORY OF GI BLEED Had lower GI bleed in December 2015 which occurred s/p polypectomy done at [facility] on 01/12/16 Required 3 units PRBC and transfer [place] [facility] [place] persistent bleeding Colonoscopy Dr Simmons on 01/13- Cauterization of recently bleeding polyp, clip placement at multiple polypectomy bleeding bases Colonoscopy [facility] [place]18[place]16- 7 mm cecal polyp s/p cold snare and clip closure. Post polypectomy ulcer with pigmented protuberance and residual polyp s/p cold snaring of residual polyp and clip closure. Post polypectomy ulcer with adherent clot s/p injection of dilute epinephrine, snare removal of clot revealing visible vessel, snare removal of misplaced clips and complete closure with hemostatic clip. 3 mm polyp in the transverse colon s/p cold snare. Internal hemorrhoids. Poor colon preparation with solid stool precluding visualization of the third polypectomy site." -Denies recurrent GI bleeding HX OF ORAL CANCER S/P RADIATION -Continue magic mouthwash ACHS DVT PROPHYLAXIS On Coumadin- INR subtherapeutic; Heparin SQ 5000 units q8h till INR is therapeutic CODE STATUS Full code per my discussion with the patient DISPOSITION Need to have INR therapeutic prior to discharge. Vital Signs: Date Time Temp Pulse Resp B/P Pulse Ox O2 Delivery O2 Flow Rate FiO2 04/06/16 12:55 Room Air 04/06/16 11:41 37.1 74 18 149/77 91 Room Air 04/06/16 09:58 85 179/103 04/06/16 08:53 69 189/93 04/06/16 08:00 Room Air 04/06/16 07:42 37.2 64 22 176/90 93 Room Air 04/06/16 04:40 138/78 04/06/16 04:00 Room Air 04/06/16 03:11 37.2 59 18 174/108 95 Room Air 191/90 04/06/16 00:01 91 Room Air 04/05/16 23:22 37.0 54 18 128/68 91 Room Air 04/05/16 20:00 91 Room Air 04/05/16 19:46 37.0 57 19 170/80 91 Room Air 04/05/16 16:50 36.8 55 18 181/94 98 04/05/16 16:00 Room Air Lab Results: Results Past 24 Hours Test 04/06/16 05:53 Range/Units White Blood Count 4.25 4.8-10.8 K/uL Red Blood Count 4.99 4.7-6.1 M/uL Hemoglobin 14.6 14.0-18.0 g/dL Hematocrit 44.0 42-52 % Mean Corpuscular Volume 88.2 80-100 fL Mean Corpuscular Hemoglobin 29.3 25-34 pg Mean Corpuscular Hemoglobin Concent 33.2 32-36 g/dl Platelet Count 124 130-400 K/uL Mean Platelet Volume 10.5 7.4-10.4 fL Neutrophils (%) (Auto) 66.2 % Lymphocytes (%) (Auto) 17.9 % Monocytes (%) (Auto) 13.9 % Eosinophils (%) (Auto) 1.6 % Basophils (%) (Auto) 0.2 % Neutrophils # (Auto) 2.81 1.4-6.5 K/uL Lymphocytes # (Auto) 0.76 1.2-3.4 K/uL Monocytes # (Auto) 0.59 0.11-0.59 K/uL Eosinophils # (Auto) 0.07 0-0.5 K/uL Basophils # (Auto) 0.01 0-0.2 K/uL RDW Standard Deviation 43.8 36.4-46.3 fL RDW Coefficient of Variation 13.7 11.5-14.5 % Immature Granulocyte % (Auto) 0.2 % Immature Granulocyte # (Auto) 0.01 0.00-0.02 K/uL Prothrombin Time 18.1 9.0-12.0 SECONDS Prothromb Time International Ratio 1.7 0.9-1.1 Sodium Level 139 136-145 mmol/L Potassium Level 3.5 3.5-5.1 mmol/L Chloride Level 100 98-107 mmol/L Carbon Dioxide Level 29 21-32 mmol/L Anion Gap 10.0 3-11 mmol/L Blood Urea Nitrogen 17 7-18 mg/dl Creatinine 1.20 0.60-1.40 mg/dl Est Creatinine Clear Calc Drug Dose 67.4 ml/min Estimated GFR () 67.7 Estimated GFR (Non- 58.4 BUN/Creatinine Ratio 14.4 10-20 Random Glucose 123 70-99 mg/dl Calcium Level 8.9 8.5-10.1 mg/dl
[2016-04-06] MEDS: WARFARIN SOD 5 MG TAB PO SCH (15:23)
--- NOTE | 2016-04-06 15:23 | Neurology Progress Notes ---
Neurology Progress Note Date of Service Apr 06, 2016. 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 He developed sudden onset of diplopia he went to his officer lieutenant on Monday. It is horizontal and only occurs with both eyes open and he can tilt his head a certain way to eliminate the double vision. He was hypertensive to 170s systolic at the officer lieutenant and was sent to the ED for further evaluation. BLLE edema has been at baseline and has not taken furosemide in past few days. He denies CONTRERAS, dizziness blurred vision, facial numbness or drooping, one sided numbness tingling weakness, speech or swallowing difficulty, SOB, chest pain, palpitations, abdominal pain, N/V/D, urinary changes, recent abnormal bleeding. he states he has never had a stroke in the past. On arrival his BP was 260s systolic. He was treated with hydralazine 10 mg IV and clonidine 0.2 mg PO with normalization of BP. He has a history of bradycardia and states he was considered for pacemaker in the past. Today he is sitting bedside and states he thinks the double vision has improved. He can tilt his head in certain directions and it resolves. His blood pressure is still elevated and his coumadin is not therapeutic so he is currently being bridged with heparin. denies CP, SOB, abdominal pain, one sided weakness, numbness tingling, loss of vision. Objective Date Time Temp Pulse Resp B/P Pulse Ox O2 Delivery O2 Flow Rate FiO2 04/06/16 12:55 Room Air 04/06/16 11:41 37.1 74 18 149/77 91 Room Air 04/06/16 09:58 85 179/103 04/06/16 08:53 69 189/93 04/06/16 08:00 Room Air 04/06/16 07:42 37.2 64 22 176/90 93 Room Air 04/06/16 04:40 138/78 04/06/16 04:00 Room Air 04/06/16 03:11 37.2 59 18 174/108 95 Room Air 191/90 04/06/16 00:01 91 Room Air 04/05/16 23:22 37.0 54 18 128/68 91 Room Air 04/05/16 20:00 91 Room Air 04/05/16 19:46 37.0 57 19 170/80 91 Room Air 04/05/16 16:50 36.8 55 18 181/94 98 04/05/16 16:00 Room Air Last 24 Hours Test 04/06/16 05:53 White Blood Count 4.25 K/uL Red Blood Count 4.99 M/uL Hemoglobin 14.6 g/dL Hematocrit 44.0 % Mean Corpuscular Volume 88.2 fL Mean Corpuscular Hemoglobin 29.3 pg Mean Corpuscular Hemoglobin Concent 33.2 g/dl Platelet Count 124 K/uL Mean Platelet Volume 10.5 fL Neutrophils (%) (Auto) 66.2 % Lymphocytes (%) (Auto) 17.9 % Monocytes (%) (Auto) 13.9 % Eosinophils (%) (Auto) 1.6 % Basophils (%) (Auto) 0.2 % Neutrophils # (Auto) 2.81 K/uL Lymphocytes # (Auto) 0.76 K/uL Monocytes # (Auto) 0.59 K/uL Eosinophils # (Auto) 0.07 K/uL Basophils # (Auto) 0.01 K/uL RDW Standard Deviation 43.8 fL RDW Coefficient of Variation 13.7 % Immature Granulocyte % (Auto) 0.2 % Immature Granulocyte # (Auto) 0.01 K/uL Prothrombin Time 18.1 SECONDS Prothromb Time International Ratio 1.7 Sodium Level 139 mmol/L Potassium Level 3.5 mmol/L Chloride Level 100 mmol/L Carbon Dioxide Level 29 mmol/L Anion Gap 10.0 mmol/L Blood Urea Nitrogen 17 mg/dl Creatinine 1.20 mg/dl Est Creatinine Clear Calc Drug Dose 67.4 ml/min Estimated GFR () 67.7 Estimated GFR (Non- 58.4 BUN/Creatinine Ratio 14.4 Random Glucose 123 mg/dl Calcium Level 8.9 mg/dl Imaging: Normal LV chamber size with moderate concentric LVH. * Normal LV systolic function, EF 55-60%. * No segmental left ventricular wall motion abnormalities are noted. * Abnormal diastolic dysfunction by presence of left atrial enlargement. * Aortic valve sclerosis moderate, without significant aortic valvular stenosis. * There is a mechanical mitral valve. * Doppler evidence of mitral regurgitation is normal for this valve. * Prosthetic mitral valve peak and/or mean gradients are normal. * Severe biatrial enlargement. * Intact interatrial septum. * Moderate aortic root enlargement. Exam: Physical Exam: Constitutional: appearance nourished, healthy and normal Ears, Nose, Mouth and Throat: mucous membranes moist, no injection and skin normal, eyes normal Cardiovascular: normal S-1 and S-2 and regular rate and rhythm Respiratory: clear to auscultation (CTA) and no rales, rhonchi or wheeze Musculoskeletal: no peripheral edema and good distal pulses Skin: no stigmata of neurocutaneous disease noted and normal and intact Eyes: extraocular muscles intact (EOMI) and pupils equal, round and reactive to light (PERRL) diplopia NEUROLOGIC EXAMINATION: Mental status: Alert and interactive Oriented to full date and location Oriented to person Speech fluent with no evidence of aphasia Cranial Nerves smile eye brow raise symmetric Coordination: finger to nose with out bi pass with one eye closed, no tremor Gait/Stance: sitting bedside Motor: Negative for pronator drift of out stretched arms with eyes closed. Strength: biceps triceps deltoids hand clergy member bilaterally 5/5, hip flex plantar flex ext 5/ 5 bilaterally Current Inpatient Medications Medications (Trade) Dose Ordered Sig/Maryjane Route Start Time Stop Time Status Last Admin Dose Admin Acetaminophen (Tylenol Tab) 650 mg Q4H PRN PO 04/04/16 19:00 05/04/16 18:59 Ondansetron HCl (Zofran Inj) 4 mg Q6H PRN IV 04/04/16 19:00 05/04/16 18:59 Miscellaneous Information (Pharmacist Discharge Med Rec Consult) 1 ea UD PRN N/A 04/04/16 19:00 05/04/16 18:59 Heparin Sodium (Porcine) (Heparin Sq 5000 Unit/0.5ml) 5,000 unit Q8 SQ 04/04/16 22:00 05/04/16 21:59 04/06/16 05:51 5,000 UNIT Ferrous Sulfate (Feosol Tab) 325 mg DAILY PO 04/05/16 09:00 05/05/16 08:59 04/06/16 09:03 325 MG Magnesium Oxide 400 mg DAILY PO 04/05/16 09:00 05/05/16 08:59 04/06/16 09:02 400 MG Lidocaine HCl/ Diphenhydramine HCl/Al Hydroxide/ Mg Hydroxide/ Glycerin/ Sucralfate (VISCOUS LIDOCAINE 2% Soln/ Benadryl Syrup/ Maalox Susp/ Glycerin Anhydrous Soln/ Carafate Susp) ACHS MT 04/05/16 22:00 05/05/16 21:59 04/06/16 11:19 5 ML Aspirin (Ecotrin Tab) 81 mg QAM PO 04/05/16 09:00 05/05/16 08:59 04/06/16 09:03 81 MG Hydralazine HCl (HydrALAZINE INJ) 10 mg Q6H PRN IV. 04/05/16 11:15 05/05/16 11:14 04/06/16 09:04 10 MG Warfarin Sodium (Coumadin Tab) 5 mg DAILY@16 PO 04/06/16 16:00 05/06/16 15:59 HCTZ/Losartan Potassium (Hyzaar 50-12.5 Tab) 1 tab QAM PO 04/07/16 09:00 05/07/16 08:59 Impression 75 year old male s/p diplopia with old infarcts on CT head Plan 1. permissive hypertension considering patient age 2. will need INR therapeutic for heart valve criteria - coumadin 3. GI bleed in recent past would use caution with bridging 4. past history of SSC with radiation to tongue 5. optimize cholesterol, blood pressure once evaluation for stroke is complete 6. does not appear to have any PT/OT needs or swallowing issues 7. MRI brain -old strokes and new midline central stroke 8. once coumadin is therapeutic and blood pressure is managed ok from neurology perspective to discharge 9. will see in neurology in 3-4 weeks-Aissatou Jones PAC, schedule I have seen and discussed above patient with Dr Shane Sheppard. See my dictated note above discussed with Aissatou Jones PAC Diplopia is improved and will likely remain for several more weeks Shane Sheppard MD
[2016-04-06] MEDS ORDERED: WARFARIN SOD 2.5 MG TAB PO SCH (16:00)
--- NOTE | 2016-04-06 17:19 | PROGRESS NOTE ---
DATE: 04/06/2016 I saw Duarte today. I discussed his case with Aissatou Jones. He is going to be here until his INR gets a little more in line with his anticoagulation needs and I think we are going to keep him off the aspirin. He still has a vertical diplopia he thinks is a little better. He can correct it by looking down and it gets worse with looking up, so this is consistent with a skew deviation, even though I cannot really see this on extraocular muscle testing. The infarction is small, it is in the dorsal mid brain in a location that might produce this type of subjective diplopia. In followup after discharge we probably could see him on one occasion just to be certain things are working out, but at this point I do not think he is going to need regular visits with neurology.
[2016-04-06] MEDS ORDERED: NURSING VERBAL MED ORDER ONE ×3 (20:45→21:15)
[2016-04-06] MEDS ORDERED: ZOLPIDEM TARTRATE 5 MG TAB PO PRN (21:00)
[2016-04-06] MEDS ORDERED: hydrOXYzine HCL 25 MG TAB PO PRN (21:30)
[2016-04-07] VITALS (8 sets, daily range): BP systolic 114–185; BP diastolic 70–114; PULSE 69–84; TEMP 36.8–37.6; O2SAT 91–95
[2016-04-07] MEDS: HydrALAZINE HCL 20 MG/ML VIAL IV. PRN (03:00)
[2016-04-07 06:23] LABS: BASO % 0.3 %; BASO ABS # 0.02 K/uL (0-0.2); COMPLETE YES; EOS % 0.9 %; HEMATOCRIT 45.8 % (42-52); IG% 0.2 %; INR 2.4 (0.9-1.1); LYMPH % 14.4 %; LYMPH ABS # 0.92 K/uL (1.2-3.4); MEAN CELL VOLUME 89.1 fL (80-100); MEAN CORPUSCULAR HEMOGLOBIN 29.6 pg (25-34); MEAN CORPUSCULAR HGB CONC 33.2 g/dl (32-36); MEAN PLATELET VOLUME 10.4 fL (7.4-10.4); MONO % 13.1 %; NEUT % 71.1 %; PLATELET COUNT 127 K/uL (130-400); PROTHROMBIN TIME (PATIENT) 26.5 SECONDS (9.0-12.0); RED BLOOD COUNT 5.14 M/uL (4.7-6.1)
[2016-04-07] MEDS: HEPARIN SOD 5000 UNIT/0.5 ML CARP SQ SCH ×3 (06:25→21:09)
[2016-04-07 06:49] LABS: BUN/CREATININE RATIO 10.6 (10-20); CREATININE 1.3 mg/dl (0.60-1.40); POTASSIUM 3.5 mmol/L (3.5-5.1)
[2016-04-07] MEDS: VISCOUS MT SCH ×20 (07:00→21:00)
[2016-04-07] MEDS: DIPHENHYDRAMINE HCL MT SCH ×20 (07:00→21:00)
[2016-04-07] MEDS: LIDOCAINE HCL 2% MT SCH ×20 (07:00→21:00)
[2016-04-07] MEDS: [UNRECOGNIZED DRUG - OTHER] MT SCH ×20 (07:00→21:00)
[2016-04-07] MEDS: LOSARTAN/HCTZ 50-12.5 EA TAB PO SCH (07:58)
[2016-04-07] MEDS: MAGNESIUM OXIDE 400 MG TAB PO SCH (07:58)
[2016-04-07] MEDS: ASPIRIN 81 MG ECTAB PO SCH (07:59)
[2016-04-07] MEDS: FERROUS SULFATE 325 MG TAB PO SCH (07:59)
--- NOTE | 2016-04-07 10:35 | Cardiology Follow-Up ---
Subjective General Date of Service: Apr 07, 2016. Chief Complaint: Diplopia Pt evaluation today including: conversation w/ patient, physical exam, chart review, lab review, review of studies, review of inpatient medication list History of Present Illness Patient seen and examined Diplopia, improving. Labile hypertension. Receiving PRN Hydralazine No chest pain, palpitations, or dyspnea. Telemetry: Atrial fibrillation ~70-80 bpm. Rare PVC in singles. No significant bradycardia. April 05, 2016 TTE Interpretation Summary ([facility], Dr. Briggs): Normal LV chamber size with moderate concentric LVH. Normal LV systolic function, EF 55-60 %. No segmental left ventricular wall motion abnormalities are noted. Abnormal diastolic dysfunction by presence of left atrial enlargement. Aortic valve sclerosis moderate, without significant aortic valvular stenosis. There is a mechanical mitral valve. Doppler evidence of mitral regurgitation is normal for this valve. Prosthetic mitral valve peak and/or mean gradients are normal. Severe biatrial enlargement. Intact interatrial septum. Moderate aortic root enlargement. Allergies Coded Allergies: Allopurinol (Unverified Allergy, Unknown, unknown, 04/04/16) Lisinopril (Verified Adverse Reaction, Unknown, COUGH, 01/12/16) Social History Smoking Status: Never Smoker Hx Tobacco Use In Past Year?: No Hx Alcohol Use - Type And Amou: No Hx Substance Use - Type And Am: No Problem List Medical Problems: (1) Anemia Status: Acute (2) Binocular vision disorder with diplopia Status: Acute (3) Coagulopathy Status: Acute (4) CVA, old, disturbances of vision Status: Acute (5) Double vision with both eyes open Status: Acute (6) HTN (hypertension) Status: Acute (7) Hypertension Nos Status: Chronic (8) Hypertensive urgency Status: Acute (9) Noncompliance with medication regimen Status: Acute (10) Rectal bleeding Status: Acute Physical Exam Vital Signs Last Vital Signs Documentation Date Time Temp Pulse Resp B/P Pulse Ox O2 Delivery O2 Flow Rate FiO2 04/07/16 07:49 37.6 83 20 177/114 94 Room Air 185/98 Physical Exam Constitutional: General Apperance: heathly-appearing Level of Distress: NAD Psychiatric: Mental Status: active & alert Orientation: to time, to place, to person Memory: recent memory normal, remote memory normal Head: normocephalic, atraumatic Eyes: Pupils: PERRLA Neck: pertinent finding (Normal JVP) Lungs: Respiratory effort: no dyspnea Auscultation: no wheezing, no rales/crackles, no rhonchi Cardiovascular: Heart Auscultation: no rubs, II/ EDWARD, irregular rate rhythm Extremities: no cyanosis, no edema, no clubbing Neurologic: Cranial Nerves: grossly intact Assessment and Plan Assessment and Plan 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 Imaging with multiple embolic strokes. Longstanding labile hypertension, hypertensive urgency S/p emergent mitral valve replacement in July [address] 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 Normal coronaries by July 1994 cardiac catheterization History of squamous cell carcinoma of the tonsil, s/p radiation and chemotherapy RECOMMENDATIONS/PLAN: INR goal 2.5 - 3.5 ASA 81 mg/day added Add amlodipine 5 mg/day for additional BP control Continue Hyzaar 50-12.5 mg/day Consider titration of the above prior to adding oral hydralazine No beta-megan (bradycardia) No clonidine. Cardiology attending: Pt seen and examined, agree with findings and assessment as per Riky Ball. Will uptitrate bp meds for better control. Start amlodipine 5mg, may uptitrate to a total of 10mg a day as necessary. Laboratory Results Last 24 Hours Test 04/07/16 06:00 04/07/16 06:36 White Blood Count 6.40 K/uL Red Blood Count 5.14 M/uL Hemoglobin 15.2 g/dL Hematocrit 45.8 % Mean Corpuscular Volume 89.1 fL Mean Corpuscular Hemoglobin 29.6 pg Mean Corpuscular Hemoglobin Concent 33.2 g/dl Platelet Count 127 K/uL Mean Platelet Volume 10.4 fL Neutrophils (%) (Auto) 71.1 % Lymphocytes (%) (Auto) 14.4 % Monocytes (%) (Auto) 13.1 % Eosinophils (%) (Auto) 0.9 % Basophils (%) (Auto) 0.3 % Neutrophils # (Auto) 4.55 K/uL Lymphocytes # (Auto) 0.92 K/uL Monocytes # (Auto) 0.84 K/uL Eosinophils # (Auto) 0.06 K/uL Basophils # (Auto) 0.02 K/uL RDW Standard Deviation 46.0 fL RDW Coefficient of Variation 13.9 % Immature Granulocyte % (Auto) 0.2 % Immature Granulocyte # (Auto) 0.01 K/uL Prothrombin Time 26.5 SECONDS Prothromb Time International Ratio 2.4 Sodium Level 138 mmol/L Potassium Level 3.5 mmol/L Chloride Level 100 mmol/L Carbon Dioxide Level 28 mmol/L Anion Gap 10.0 mmol/L Blood Urea Nitrogen 14 mg/dl Creatinine 1.30 mg/dl Est Creatinine Clear Calc Drug Dose 62.2 ml/min Estimated GFR () 61.4 Estimated GFR (Non- 53.0 BUN/Creatinine Ratio 10.6 Random Glucose 125 mg/dl Calcium Level 9.0 mg/dl Bedside Glucose 122 mg/dl
[2016-04-07] MEDS ORDERED: POTASSIUM CHLORIDE 20 MEQ TABCR PO ONE (11:00)
[2016-04-07] MEDS: AMLODIPINE BESYLATE 5 MG TAB PO SCH (12:14)
--- NOTE | 2016-04-07 13:06 | Progress Note ---
Internal Med Progress Note Date of Service: Apr 07, 2016. Provider Documentation: SUBJECTIVE: Patient continues to c/o diplopia, but improved. No localized weakness, nausea, vomiting, headache, blurry vision, numbness/ tingling, vertigo, syncope. No chest pain, SOB, fever, chills. OBJECTIVE: Vital Signs-as noted below Exam: General-AAOX3, no distress Eyes-Diplopia + which disappears when closes one eye Neck-Supple, no carotid bruits, no JVD Lungs-AEBE, no wheezing, rhonchi Heart-S1, S2 normal, murmur + Abdomen-Soft, non tender, non distended, BS present Extremities-No edema Neuro-AAOX3, Diplopia +, No facial droop, Power- 5/5, Sensory normal Lab data as noted below. Diagnostic Radiology CT OF THE HEAD WITHOUT CONTRAST CLINICAL HISTORY: Diplopia, on coumadin; rule out bleed COMPARISON STUDY: No previous studies for comparison. CT DOSE: 537.48 mGy.cm TECHNIQUE: Helical axial images of the head were obtained without IV contrast. Automated exposure control was utilized for the study. FINDINGS: No acute intracranial hemorrhage, midline shift or mass effect is present. Ventricular system is normal. The basilar cisterns are patent. There are no extra-axial collections. A 2.4 cm focus of encephalomalacia within the right parieto-occipital region is consistent with an old infarct. There is an old 1 cm lacunar infarct within the left thalamus. There is a 0.8 cm age indeterminate lacunar infarct within the right thalamus. There are no findings to suggest acute dural sinus thrombosis or acute territorial infarct. There may be old infarcts within the bilateral cerebellar hemispheres. There are no significant calvarial abnormalities. Visualized portions of the sinuses and mastoid air cells are clear. IMPRESSION: 1. No acute intracranial hemorrhage or mass effect. 2. Multiple old infarcts, as described above. 3. Age indeterminate 8 mm lacunar infarct within the right thalamus. EKG Initial EKG- atrial fibrillation, nonspecific T wave inversion in III and aVF- no significant change from prior EKG Repeat EKG- bradycardia, no P waves noted, rate 47 bpm, nonspecific T wave inversion in III and aVF MRI BRAIN IMPRESSION: 1. No evidence of intracranial mass 2. Multiple old infarcts 3. Equivocal 2 mm acute infarct involving the right midbrain ASSESSMENT & PLAN: Assessment and Plan STROKE, ACUTE RIGHT MIDBRAIN Presented with DIPLOPIA. Per ophthalmology exam- normal eye exam, was sent to ED due to hypertensive urgency and rule out stroke Risk factors: Chronic atrial fibrillation, mechanical mitral valve on coumadin with subtherapeutic INR -Work up- CT head- no acute hemorrhage or mass effect, + multiple old infarcts , + age indeterminate 8 mm lacunar infarct right thalamus; US carotid- Moderate bilateral atheromatous changes with no hemodynamically significant stenosis, Echo- Intact Interatrial septum, EF 55-60%, MRI brain- 2 mm acute infarct right midbrain, multiple old strokes, MRA brain- no acute abnormalities; LDL - 51 at goal -ASA 81 mg started, On coumadin with INR 1.7 -Avoiding Bridging with IV Heparin due to recent hx of GI bleeding, requiring transfer to [facility]. SQ heparin q 8 hours prophylactically -Needs to get INR therapeutic -Neurology consulted, appreciate inputs HYPERTENSIVE URGENCY BP initially high as 260s/ 150's in ER; in setting of missed home dose of clonidine x 2 days Treated in ER with hydralazine 10 mg IV and clonidine 0.2 mg -Losartan-HCTZ restarted by cardiology. Amlodipine 5 mg added today. Clonidine discontinued. No BB -Monitor BP CHRONIC ATRIAL FIBRILLATION WITH SLOW VENTRICULAR RESPONSE HR initially normal then became bradycardic to 40-s-50s in ER, asymptomatic -Not on any beta blockers -Anticoagulation- coumadin, INR 1.7 -Cardiology consulted. 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 -Will continue with Heparin 5000 q 8 hours, will avoid therapeutic anticoagulation /bridging due to recent hx of GI bleeding requiring transfer to [facility]. HISTORY OF GI BLEED Had lower GI bleed in December 2015 which occurred s/p polypectomy done at [facility] [place] on 01/12/16 Required 3 units PRBC and transfer to [facility] for persistent bleeding Colonoscopy Dr Simmons on 01/13- Cauterization of recently bleeding polyp, clip placement at multiple polypectomy bleeding bases Colonoscopy [facility] 01/18/16- 7 mm cecal polyp s/p cold snare and clip closure. Post polypectomy ulcer with pigmented protuberance and residual polyp s/p cold snaring of residual polyp and clip closure. Post polypectomy ulcer with adherent clot s/p injection of dilute epinephrine, snare removal of clot revealing visible vessel, snare removal of misplaced clips and complete closure with hemostatic clip. 3 mm polyp in the transverse colon s/p cold snare. Internal hemorrhoids. Poor colon preparation with solid stool precluding visualization of the third polypectomy site." -Denies recurrent GI bleeding HX OF ORAL CANCER S/P RADIATION -Continue magic mouthwash ACHS DVT PROPHYLAXIS On Coumadin- INR subtherapeutic; Heparin SQ 5000 units q8h till INR is therapeutic CODE STATUS Full code per my discussion with the patient DISPOSITION Need to have INR therapeutic prior to discharge. Monitor BP with changes made in medications Vital Signs: Date Time Temp Pulse Resp B/P Pulse Ox O2 Delivery O2 Flow Rate FiO2 04/07/16 12:53 36.9 69 20 164/85 95 Room Air 165/86 04/07/16 07:49 37.6 83 20 177/114 94 Room Air 185/98 04/07/16 04:48 114/70 04/07/16 04:00 Room Air 04/07/16 04:00 Room Air 04/07/16 02:50 36.8 77 18 178/74 94 Room Air 04/07/16 00:01 Room Air 04/06/16 23:03 36.9 76 18 132/77 94 Room Air 04/06/16 20:06 37.3 70 18 167/82 93 04/06/16 20:00 Room Air 04/06/16 16:38 152/79 04/06/16 16:00 Room Air 04/06/16 15:47 37.0 65 18 195/96 93 Room Air Lab Results: Results Past 24 Hours Test 04/07/16 06:00 04/07/16 06:36 04/07/16 11:42 Range/Units White Blood Count 6.40 4.8-10.8 K/uL Red Blood Count 5.14 4.7-6.1 M/uL Hemoglobin 15.2 14.0-18.0 g/dL Hematocrit 45.8 42-52 % Mean Corpuscular Volume 89.1 80-100 fL Mean Corpuscular Hemoglobin 29.6 25-34 pg Mean Corpuscular Hemoglobin Concent 33.2 32-36 g/dl Platelet Count 127 130-400 K/uL Mean Platelet Volume 10.4 7.4-10.4 fL Neutrophils (%) (Auto) 71.1 % Lymphocytes (%) (Auto) 14.4 % Monocytes (%) (Auto) 13.1 % Eosinophils (%) (Auto) 0.9 % Basophils (%) (Auto) 0.3 % Neutrophils # (Auto) 4.55 1.4-6.5 K/uL Lymphocytes # (Auto) 0.92 1.2-3.4 K/uL Monocytes # (Auto) 0.84 0.11-0.59 K/uL Eosinophils # (Auto) 0.06 0-0.5 K/uL Basophils # (Auto) 0.02 0-0.2 K/uL RDW Standard Deviation 46.0 36.4-46.3 fL RDW Coefficient of Variation 13.9 11.5-14.5 % Immature Granulocyte % (Auto) 0.2 % Immature Granulocyte # (Auto) 0.01 0.00-0.02 K/uL Prothrombin Time 26.5 9.0-12.0 SECONDS Prothromb Time International Ratio 2.4 0.9-1.1 Sodium Level 138 136-145 mmol/L Potassium Level 3.5 3.5-5.1 mmol/L Chloride Level 100 98-107 mmol/L Carbon Dioxide Level 28 21-32 mmol/L Anion Gap 10.0 3-11 mmol/L Blood Urea Nitrogen 14 7-18 mg/dl Creatinine 1.30 0.60-1.40 mg/dl Est Creatinine Clear Calc Drug Dose 62.2 ml/min Estimated GFR () 61.4 Estimated GFR (Non- 53.0 BUN/Creatinine Ratio 10.6 10-20 Random Glucose 125 70-99 mg/dl Calcium Level 9.0 8.5-10.1 mg/dl Bedside Glucose 122 151 70-99 mg/dl
--- NOTE | 2016-04-07 16:07 | Neurology Progress Notes ---
Neurology Progress Note Date of Service Apr 07, 2016. 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 It is horizontal and only occurs with both eyes open and he can tilt his head a certain way to eliminate the double vision. He was hypertensive to 170s systolic at the keying machine operator and was sent to the ED for further evaluation. BLLE edema has been at baseline and has not taken furosemide in past few days. He denies CONTRERAS, dizziness blurred vision, facial numbness or drooping, one sided numbness tingling weakness, speech or swallowing difficulty, SOB, chest pain, palpitations, abdominal pain, N/V/D, urinary changes, recent abnormal bleeding. he states he has never had a stroke in the past. On arrival his BP was 260s systolic. He was treated with hydralazine 10 mg IV and clonidine 0.2 mg PO with normalization of BP. He has a history of bradycardia and states he was considered for pacemaker in the past. Today he states the double vision is better than before. He is still able to eliminate it if he turns his head a certain way. No headache, loss of vision, CP , SOB, abdominal pain, weakness, numbness tingling, N, V, falls, Objective Date Time Temp Pulse Resp B/P Pulse Ox O2 Delivery O2 Flow Rate FiO2 04/07/16 16:00 Room Air 04/07/16 15:58 37.1 78 18 155/92 91 Room Air 04/07/16 12:53 36.9 69 20 164/85 95 Room Air 165/86 04/07/16 12:00 Room Air 04/07/16 08:00 Room Air 04/07/16 07:49 37.6 83 20 177/114 94 Room Air 185/98 04/07/16 04:48 114/70 04/07/16 04:00 Room Air 04/07/16 04:00 Room Air 04/07/16 02:50 36.8 77 18 178/74 94 Room Air 04/07/16 00:01 Room Air 04/06/16 23:03 36.9 76 18 132/77 94 Room Air 04/06/16 20:06 37.3 70 18 167/82 93 04/06/16 20:00 Room Air 04/06/16 16:38 152/79 Last 24 Hours Test 04/07/16 06:00 04/07/16 06:36 04/07/16 11:42 White Blood Count 6.40 K/uL Red Blood Count 5.14 M/uL Hemoglobin 15.2 g/dL Hematocrit 45.8 % Mean Corpuscular Volume 89.1 fL Mean Corpuscular Hemoglobin 29.6 pg Mean Corpuscular Hemoglobin Concent 33.2 g/dl Platelet Count 127 K/uL Mean Platelet Volume 10.4 fL Neutrophils (%) (Auto) 71.1 % Lymphocytes (%) (Auto) 14.4 % Monocytes (%) (Auto) 13.1 % Eosinophils (%) (Auto) 0.9 % Basophils (%) (Auto) 0.3 % Neutrophils # (Auto) 4.55 K/uL Lymphocytes # (Auto) 0.92 K/uL Monocytes # (Auto) 0.84 K/uL Eosinophils # (Auto) 0.06 K/uL Basophils # (Auto) 0.02 K/uL RDW Standard Deviation 46.0 fL RDW Coefficient of Variation 13.9 % Immature Granulocyte % (Auto) 0.2 % Immature Granulocyte # (Auto) 0.01 K/uL Prothrombin Time 26.5 SECONDS Prothromb Time International Ratio 2.4 Sodium Level 138 mmol/L Potassium Level 3.5 mmol/L Chloride Level 100 mmol/L Carbon Dioxide Level 28 mmol/L Anion Gap 10.0 mmol/L Blood Urea Nitrogen 14 mg/dl Creatinine 1.30 mg/dl Est Creatinine Clear Calc Drug Dose 62.2 ml/min Estimated GFR () 61.4 Estimated GFR (Non- 53.0 BUN/Creatinine Ratio 10.6 Random Glucose 125 mg/dl Calcium Level 9.0 mg/dl Bedside Glucose 122 mg/dl 151 mg/dl Imaging: no new imaging Exam: Physical Exam: Constitutional: appearance nourished, healthy and normal Ears, Nose, Mouth and Throat: mucous membranes moist, no injection and skin normal, eyes normal Cardiovascular: normal S-1 and S-2 and regular rate and rhythm Respiratory: clear to auscultation (CTA) and no rales, rhonchi or wheeze Musculoskeletal: no peripheral edema and good distal pulses Skin: no stigmata of neurocutaneous disease noted and normal and intact Eyes: extraocular muscles intact (EOMI) and pupils equal, round and reactive to light (PERRL), diplopia NEUROLOGIC EXAMINATION: Mental status: Alert and interactive Oriented to full date and location Oriented to person Speech fluent with no evidence of aphasia Cranial Nerves smile eye brow raise symmetric, tongue midline Coordination: finger to nose without tremor or bi pass with one eye closed Gait/Stance: sitting bed side able to stand with minimal assistance Motor: Negative for pronator drift of out stretched arms with eyes closed. Strength: biceps triceps hand chief writer 5/5 bilaterally, hip flex plantar flex ext bilaterally 5/5 Current Inpatient Medications Medications (Trade) Dose Ordered Sig/Maryjane Route Start Time Stop Time Status Last Admin Dose Admin Acetaminophen (Tylenol Tab) 650 mg Q4H PRN PO 04/04/16 19:00 05/04/16 18:59 Ondansetron HCl (Zofran Inj) 4 mg Q6H PRN IV 04/04/16 19:00 05/04/16 18:59 Miscellaneous Information (Pharmacist Discharge Med Rec Consult) 1 ea UD PRN N/A 04/04/16 19:00 05/04/16 18:59 Heparin Sodium (Porcine) (Heparin Sq 5000 Unit/0.5ml) 5,000 unit Q8 SQ 04/04/16 22:00 05/04/16 21:59 04/07/16 14:00 5,000 UNIT Ferrous Sulfate (Feosol Tab) 325 mg DAILY PO 04/05/16 09:00 05/05/16 08:59 04/07/16 07:59 325 MG Magnesium Oxide 400 mg DAILY PO 04/05/16 09:00 05/05/16 08:59 04/07/16 07:58 400 MG Lidocaine HCl/ Diphenhydramine HCl/Al Hydroxide/ Mg Hydroxide/ Glycerin/ Sucralfate (VISCOUS LIDOCAINE 2% Soln/ Benadryl Syrup/ Maalox Susp/ Glycerin Anhydrous Soln/ Carafate Susp) ACHS MT 04/05/16 22:00 05/05/16 21:59 04/07/16 11:00 5 ML Aspirin (Ecotrin Tab) 81 mg QAM PO 04/05/16 09:00 05/05/16 08:59 04/07/16 07:59 81 MG Hydralazine HCl (HydrALAZINE INJ) 10 mg Q6H PRN IV. 04/05/16 11:15 05/05/16 11:14 04/07/16 03:00 10 MG Warfarin Sodium (Coumadin Tab) 5 mg DAILY@16 PO 04/06/16 16:00 05/06/16 15:59 04/06/16 15:23 5 MG HCTZ/Losartan Potassium (Hyzaar 50-12.5 Tab) 1 tab QAM PO 04/07/16 09:00 05/07/16 08:59 04/07/16 07:58 1 TAB Hydroxyzine HCl (Vistaril Tab) 50 mg HS PRN PO 04/06/16 21:30 05/06/16 21:29 04/06/16 22:18 50 MG Amlodipine Besylate (Norvasc Tab) 5 mg QAM PO 04/07/16 11:30 05/07/16 11:29 04/07/16 12:14 5 MG Impression 75 year old male s/p diplopia with old infarcts on CT head Plan 1. permissive hypertension considering patient age 2. will need INR therapeutic for heart valve criteria - coumadin currently 2.4 3. GI bleed in recent past would use caution with bridging 4. past history of SSC with radiation to tongue 5. optimize cholesterol, blood pressure once evaluation for stroke is complete 6. does not appear to have any PT/OT needs or swallowing issues 7. MRI brain -old strokes and new midline central stroke 8. once coumadin is therapeutic and blood pressure is managed ok from neurology perspective to discharge 9. will see in neurology in 3-4 weeks-Aissatou Jones PAC, schedule I have seen and discussed above patient with Dr Shane Sheppard. Patient seen and assessed less diplopia in vertical plane and exam normal Inr moving up and he will go home tomorrow We can follow up in about four weeks and suspect the diplopia at that point will be resolved as the infarct is small and does not appear to be involving cn 3, 4 o 6 nuclei or their intraparyenchymal brainstem courses and appears to be a skew deviation with partial vertical gaze mismatch Shane Sheppard MD
[2016-04-07] MEDS: WARFARIN SOD 5 MG TAB PO SCH (16:36)
[2016-04-08] VITALS (14 sets, daily range): BP systolic 134–187; BP diastolic 69–102; PULSE 73–83; TEMP 36.3–36.9; O2SAT 91–95
[2016-04-08] MEDS: HydrALAZINE HCL 20 MG/ML VIAL IV. PRN (00:30)
[2016-04-08] MEDS: HEPARIN SOD 5000 UNIT/0.5 ML CARP SQ SCH ×2 (06:10→14:00)
[2016-04-08 07:17] LABS: INR 2.9 (0.9-1.1); PROTHROMBIN TIME (PATIENT) 32.6 SECONDS (9.0-12.0)
[2016-04-08] MEDS: MAGNESIUM OXIDE 400 MG TAB PO SCH (07:52)
[2016-04-08] MEDS: ASPIRIN 81 MG ECTAB PO SCH (07:52)
[2016-04-08] MEDS: FERROUS SULFATE 325 MG TAB PO SCH (07:52)
[2016-04-08] MEDS: LOSARTAN/HCTZ 50-12.5 EA TAB PO SCH (07:52)
[2016-04-08] MEDS: AMLODIPINE BESYLATE 5 MG TAB PO SCH (07:53)
[2016-04-08] MEDS: DIPHENHYDRAMINE HCL MT SCH ×20 (07:55→20:06)
[2016-04-08] MEDS: LIDOCAINE HCL 2% MT SCH ×20 (07:55→20:06)
[2016-04-08] MEDS: VISCOUS MT SCH ×20 (07:55→20:06)
[2016-04-08] MEDS: [UNRECOGNIZED DRUG - OTHER] MT SCH ×20 (07:55→20:06)
--- NOTE | 2016-04-08 10:07 | Cardiology Follow-Up ---
Subjective General Date of Service: Apr 08, 2016. Chief Complaint: Diplopia Pt evaluation today including: conversation w/ patient, physical exam, chart review, lab review, review of studies, review of inpatient medication list History of Present Illness Patient seen and examined Diplopia, improving. No chest pain, palpitations, or dyspnea. Labile hypertension, improved. Telemetry: Atrial fibrillation ~80 bpm. Rare PVC in singles. No significant bradycardia or pauses. April 05, 2016 TTE Interpretation Summary ([facility], Dr. Briggs): Normal LV chamber size with moderate concentric LVH. Normal LV systolic function, EF 55-60 %. No segmental left ventricular wall motion abnormalities are noted. Abnormal diastolic dysfunction by presence of left atrial enlargement. Aortic valve sclerosis moderate, without significant aortic valvular stenosis. There is a mechanical mitral valve. Doppler evidence of mitral regurgitation is normal for this valve. Prosthetic mitral valve peak and/or mean gradients are normal. Severe biatrial enlargement. Intact interatrial septum. Moderate aortic root enlargement. Allergies Coded Allergies: Allopurinol (Unverified Allergy, Unknown, unknown, 04/04/16) Lisinopril (Verified Adverse Reaction, Unknown, COUGH, 01/12/16) Social History Smoking Status: Never Smoker Hx Tobacco Use In Past Year?: No Hx Alcohol Use - Type And Amou: No Hx Substance Use - Type And Am: No Problem List Medical Problems: (1) Anemia Status: Acute (2) Binocular vision disorder with diplopia Status: Acute (3) Coagulopathy Status: Acute (4) CVA, old, disturbances of vision Status: Acute (5) Double vision with both eyes open Status: Acute (6) HTN (hypertension) Status: Acute (7) Hypertension Nos Status: Chronic (8) Hypertensive urgency Status: Acute (9) Noncompliance with medication regimen Status: Acute (10) Rectal bleeding Status: Acute Physical Exam Vital Signs Last Vital Signs Documentation Date Time Temp Pulse Resp B/P Pulse Ox O2 Delivery O2 Flow Rate FiO2 04/08/16 08:00 Room Air 04/08/16 07:10 36.8 76 18 169/96 93 Physical Exam Constitutional: General Apperance: heathly-appearing Level of Distress: NAD Psychiatric: Mental Status: active & alert Orientation: to time, to place, to person Memory: recent memory normal, remote memory normal Head: normocephalic, atraumatic Eyes: Pupils: PERRLA Neck: pertinent finding (Normal JVP) Lungs: Respiratory effort: no dyspnea Auscultation: no wheezing, no rales/crackles, no rhonchi Cardiovascular: Heart Auscultation: no rubs, II/ EDWARD, irregular rate rhythm Extremities: no cyanosis, no edema, no clubbing Neurologic: Cranial Nerves: grossly intact Assessment and Plan Assessment and Plan 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 Imaging with multiple embolic strokes. Longstanding labile hypertension S/p mitral valve replacement in July [address] 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 Normal coronaries by July 1994 cardiac catheterization History of squamous cell carcinoma of the tonsil, s/p radiation and chemotherapy RECOMMENDATIONS/PLAN: INR 2.9 (Goal 2.5 - 3.5) ASA 81 mg/day added this admission Increase amlodipine to 10 mg/day for additional BP control Continue Hyzaar 50-12.5 mg/day. If BP remains elevated despite the above would consider BID Hyzaar prior to adding oral hydralazine No beta-megan. No clonidine. No ARELI (allergy to lisinopril) Cardiology attending: Pt seen and examined, agree with findings and assessment as per Riky Ball. INR therapeutic. Amlodipine increased. Could also make additional changes as per above if necessary for bp control. Laboratory Results Last 24 Hours Test 04/07/16 11:42 04/07/16 16:19 04/07/16 20:26 04/08/16 06:46 Bedside Glucose 151 mg/dl 160 mg/dl 107 mg/dl Prothrombin Time 32.6 SECONDS Prothromb Time International Ratio 2.9
--- NOTE | 2016-04-08 10:08 | Progress Note ---
Internal Med Progress Note Date of Service: Apr 08, 2016. Provider Documentation: SUBJECTIVE: Patient 's diplopia is improving - much better today. No localized weakness, nausea, vomiting, headache, blurry vision, numbness/ tingling, vertigo, syncope. No chest pain, SOB, fever, chills. OBJECTIVE: Vital Signs-as noted below Exam: General-AAOX3, no distress Eyes-Diplopia + which disappears when closes one eye Neck-Supple, no carotid bruits, no JVD Lungs-AEBE, no wheezing, rhonchi Heart-S1, S2 normal, murmur + Abdomen-Soft, non tender, non distended, BS present Extremities-No edema Neuro-AAOX3, Diplopia +, No facial droop, Power- 5/5, Sensory normal Lab data as noted below. Diagnostic Radiology CT OF THE HEAD WITHOUT CONTRAST CLINICAL HISTORY: Diplopia, on coumadin; rule out bleed COMPARISON STUDY: No previous studies for comparison. CT DOSE: 537.48 mGy.cm TECHNIQUE: Helical axial images of the head were obtained without IV contrast. Automated exposure control was utilized for the study. FINDINGS: No acute intracranial hemorrhage, midline shift or mass effect is present. Ventricular system is normal. The basilar cisterns are patent. There are no extra-axial collections. A 2.4 cm focus of encephalomalacia within the right parieto-occipital region is consistent with an old infarct. There is an old 1 cm lacunar infarct within the left thalamus. There is a 0.8 cm age indeterminate lacunar infarct within the right thalamus. There are no findings to suggest acute dural sinus thrombosis or acute territorial infarct. There may be old infarcts within the bilateral cerebellar hemispheres. There are no significant calvarial abnormalities. Visualized portions of the sinuses and mastoid air cells are clear. IMPRESSION: 1. No acute intracranial hemorrhage or mass effect. 2. Multiple old infarcts, as described above. 3. Age indeterminate 8 mm lacunar infarct within the right thalamus. EKG Initial EKG- atrial fibrillation, nonspecific T wave inversion in III and aVF- no significant change from prior EKG Repeat EKG- bradycardia, no P waves noted, rate 47 bpm, nonspecific T wave inversion in III and aVF MRI BRAIN IMPRESSION: 1. No evidence of intracranial mass 2. Multiple old infarcts 3. Equivocal 2 mm acute infarct involving the right midbrain ASSESSMENT & PLAN: Assessment and Plan STROKE, ACUTE RIGHT MIDBRAIN Presented with DIPLOPIA- improving. Per ophthalmology exam- normal eye exam, was sent to ED due to hypertensive urgency and rule out stroke Risk factors: Chronic atrial fibrillation, mechanical mitral valve on coumadin with subtherapeutic INR -Work up- CT head- no acute hemorrhage or mass effect, + multiple old infarcts , + age indeterminate 8 mm lacunar infarct right thalamus; US carotid- Moderate bilateral atheromatous changes with no hemodynamically significant stenosis, Echo- Intact Interatrial septum, EF 55-60%, MRI brain- 2 mm acute infarct right midbrain, multiple old strokes, MRA brain- no acute abnormalities; LDL - 51 at goal -ASA 81 mg discontinued per neurology, On coumadin with INR 2.9 -Avoiding Bridging with IV Heparin due to recent hx of GI bleeding, requiring transfer to [facility]. -Neurology consulted, appreciate inputs HYPERTENSIVE URGENCY- Improved, but BP still a bit high. BP initially high as 260s/ 150's in ER; in setting of missed home dose of clonidine x 2 days Treated in ER with hydralazine 10 mg IV and clonidine 0.2 mg -Losartan-HCTZ restarted by cardiology. Amlodipine 5 mg added yesterday- will increase to 10 mg daily . Clonidine discontinued. No BB -Monitor BP closely CHRONIC ATRIAL FIBRILLATION WITH SLOW VENTRICULAR RESPONSE HR initially normal then became bradycardic to 40-s-50s in ER, asymptomatic -Not on any beta blockers -Anticoagulation- coumadin, INR 2.9 (Goal : 2.5-3.5 due to mechanical valve) -Cardiology consulted. 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 HISTORY OF GI BLEED Had lower GI bleed in December 2015 which occurred s/p polypectomy done at [facility] on 01/12/16 Required 3 units PRBC and transfer to [facility] for persistent bleeding Colonoscopy Dr Simmons on 01/13- Cauterization of recently bleeding polyp, clip placement at multiple polypectomy bleeding bases Colonoscopy [facility] 01/18/16- 7 mm cecal polyp s/p cold snare and clip closure. Post polypectomy ulcer with pigmented protuberance and residual polyp s/p cold snaring of residual polyp and clip closure. Post polypectomy ulcer with adherent clot s/p injection of dilute epinephrine, snare removal of clot revealing visible vessel, snare removal of misplaced clips and complete closure with hemostatic clip. 3 mm polyp in the transverse colon s/p cold snare. Internal hemorrhoids. Poor colon preparation with solid stool precluding visualization of the third polypectomy site." -Denies recurrent GI bleeding HX OF ORAL CANCER S/P RADIATION -Continue magic mouthwash ACHS DVT PROPHYLAXIS On Coumadin- INR therapeutic CODE STATUS Full code per my discussion with the patient DISPOSITION Ok to discharge today evening once BP better controlled. Vital Signs: Date Time Temp Pulse Resp B/P Pulse Ox O2 Delivery O2 Flow Rate FiO2 04/08/16 08:00 Room Air 04/08/16 07:10 36.8 76 18 169/96 93 Room Air 04/08/16 04:06 36.9 73 18 134/69 92 Room Air 04/08/16 04:00 Room Air 04/08/16 02:42 156/92 04/08/16 00:14 187/94 04/08/16 00:01 93 Room Air 04/07/16 23:40 36.8 84 20 175/108 93 Room Air 175/101 04/07/16 20:00 91 Room Air 04/07/16 19:39 37.1 78 18 159/95 91 Room Air 04/07/16 16:00 Room Air 04/07/16 15:58 37.1 78 18 155/92 91 Room Air 04/07/16 12:53 36.9 69 20 164/85 95 Room Air 165/86 04/07/16 12:00 Room Air Lab Results: Results Past 24 Hours Test 04/07/16 11:42 04/07/16 16:19 04/07/16 20:26 04/08/16 06:46 Range/Units Bedside Glucose 151 160 107 70-99 mg/dl Prothrombin Time 32.6 9.0-12.0 SECONDS Prothromb Time International Ratio 2.9 0.9-1.1
[2016-04-08] MEDS ORDERED: AMLODIPINE BESYLATE 5 MG TAB PO ONE (10:15)
--- NOTE | 2016-04-08 12:17 | Neurology Progress Notes ---
Neurology Progress Note Date of Service Apr 08, 2016. 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 It is horizontal and only occurs with both eyes open and he can tilt his head a certain way to eliminate the double vision. He was hypertensive to 170s systolic at the research & analytics manager and was sent to the ED for further evaluation. BLLE edema has been at baseline and has not taken furosemide in past few days. He denies CONTRERAS, dizziness blurred vision, facial numbness or drooping, one sided numbness tingling weakness, speech or swallowing difficulty, SOB, chest pain, palpitations, abdominal pain, N/V/D, urinary changes, recent abnormal bleeding. he states he has never had a stroke in the past. On arrival his BP was 260s systolic. He was treated with hydralazine 10 mg IV and clonidine 0.2 mg PO with normalization of BP. He has a history of bradycardia and states he was considered for pacemaker in the past. Today he is hoping to go home today. He is still having double vision which he thinks is improving but about the same as yesterday. denies CP, SOB, abdominal pain weakness, numbness tingling, loss of vision, falls. Objective Date Time Temp Pulse Resp B/P Pulse Ox O2 Delivery O2 Flow Rate FiO2 04/08/16 12:05 36.8 76 18 93 Room Air 04/08/16 12:00 Room Air 04/08/16 08:00 Room Air 04/08/16 07:10 36.8 76 18 169/96 93 Room Air 04/08/16 04:06 36.9 73 18 134/69 92 Room Air 04/08/16 04:00 Room Air 04/08/16 02:42 156/92 04/08/16 00:14 187/94 04/08/16 00:01 93 Room Air 04/07/16 23:40 36.8 84 20 175/108 93 Room Air 175/101 04/07/16 20:00 91 Room Air 04/07/16 19:39 37.1 78 18 159/95 91 Room Air 04/07/16 16:00 Room Air 04/07/16 15:58 37.1 78 18 155/92 91 Room Air 04/07/16 12:53 36.9 69 20 164/85 95 Room Air 165/86 Last 24 Hours Test 04/07/16 16:19 04/07/16 20:26 04/08/16 06:46 Bedside Glucose 160 mg/dl 107 mg/dl Prothrombin Time 32.6 SECONDS Prothromb Time International Ratio 2.9 Imaging: no new imaging Exam: Physical Exam: Constitutional: appearance nourished, healthy and normal Ears, Nose, Mouth and Throat: mucous membranes moist, no injection and skin normal, eyes normal Cardiovascular: normal S-1 and S-2 and regular rate and rhythm Respiratory: clear to auscultation (CTA) and no rales, rhonchi or wheeze Musculoskeletal: no peripheral edema Skin: no stigmata of neurocutaneous disease noted and normal and intact Eyes: extraocular muscles intact (EOMI) and pupils equal, round and reactive to light (PERRL) diplopia NEUROLOGIC EXAMINATION: Mental status: Alert and interactive Oriented to full date and location Oriented to person Speech fluent with no evidence of aphasia Cranial Nerves smile eye brow raise symmetric Coordination: finger to nose with no bi pass with one eye closed. no tremor Gait/Stance: Posture normal. Gait normal: with steady with steps, base, turning and tandem gait. Motor: Negative for pronator drift of out stretched arms with eyes closed. Strength: biceps triceps hand unit supervisor 5/5 bilaterally, hip flex ext plantar flex ext 5/5 bilaterally Current Inpatient Medications Medications (Trade) Dose Ordered Sig/Maryjane Route Start Time Stop Time Status Last Admin Dose Admin Acetaminophen (Tylenol Tab) 650 mg Q4H PRN PO 04/04/16 19:00 05/04/16 18:59 Ondansetron HCl (Zofran Inj) 4 mg Q6H PRN IV 04/04/16 19:00 05/04/16 18:59 Miscellaneous Information (Pharmacist Discharge Med Rec Consult) 1 ea UD PRN N/A 04/04/16 19:00 05/04/16 18:59 Heparin Sodium (Porcine) (Heparin Sq 5000 Unit/0.5ml) 5,000 unit Q8 SQ 04/04/16 22:00 05/04/16 21:59 04/08/16 06:10 5,000 UNIT Ferrous Sulfate (Feosol Tab) 325 mg DAILY PO 04/05/16 09:00 05/05/16 08:59 04/08/16 07:52 325 MG Magnesium Oxide 400 mg DAILY PO 04/05/16 09:00 05/05/16 08:59 04/08/16 07:52 400 MG Lidocaine HCl/ Diphenhydramine HCl/Al Hydroxide/ Mg Hydroxide/ Glycerin/ Sucralfate (VISCOUS LIDOCAINE 2% Soln/ Benadryl Syrup/ Maalox Susp/ Glycerin Anhydrous Soln/ Carafate Susp) ACHS MT 04/05/16 22:00 05/05/16 21:59 04/08/16 11:13 5 ML Aspirin (Ecotrin Tab) 81 mg QAM PO 04/05/16 09:00 05/05/16 08:59 04/08/16 07:52 81 MG Hydralazine HCl (HydrALAZINE INJ) 10 mg Q6H PRN IV. 04/05/16 11:15 05/05/16 11:14 04/08/16 00:30 10 MG HCTZ/Losartan Potassium (Hyzaar 50-12.5 Tab) 1 tab QAM PO 04/07/16 09:00 05/07/16 08:59 04/08/16 07:52 1 TAB Hydroxyzine HCl (Vistaril Tab) 50 mg HS PRN PO 04/06/16 21:30 05/06/16 21:29 04/06/16 22:18 50 MG Warfarin Sodium (Coumadin Tab) 4 mg DAILY@16 PO 04/08/16 16:00 05/08/16 15:59 Amlodipine Besylate (Norvasc Tab) 10 mg QAM PO 04/09/16 09:00 05/09/16 08:59 Impression 75 year old male s/p diplopia with old infarcts on CT head Plan 1. blood pressure control -cardiology increasing medications 2. will need INR therapeutic for heart valve criteria - currently 2.9 3. coumadin at therapeutic level 4. past history of SSC with radiation to tongue 5. optimize cholesterol, blood pressure once evaluation for stroke is complete 6. does not appear to have any PT/OT needs or swallowing issues 7. MRI brain -old strokes and new midline central stroke 8. once coumadin is therapeutic and blood pressure is managed ok from neurology perspective to discharge 9. will see in neurology in 3-4 weeks-Aissatou Jones PAC, schedule I have discussed above patient with Dr Aissatou Layton, neurology Discussed with Aissatou Jones, reviewed Dr Sheppard's sign-off note ANAIS Layton MD
[2016-04-08] MEDS ORDERED: LOSARTAN POTASSIUM 50 MG TAB PO ONE (16:00)
[2016-04-08] MEDS ORDERED: WARFARIN SOD 4 MG TAB PO SCH (16:00)
[2016-04-09 00:01] VITALS: O2SAT 92
[2016-04-09 03:10] VITALS: BP 161/93; PULSE 76; TEMP 36.5; O2SAT 92
[2016-04-09 04:00] VITALS: O2SAT 92
[2016-04-09] MEDS: LIDOCAINE HCL 2% MT SCH ×5 (06:50)
[2016-04-09] MEDS: VISCOUS MT SCH ×5 (06:50)
[2016-04-09] MEDS: DIPHENHYDRAMINE HCL MT SCH ×5 (06:50)
[2016-04-09] MEDS: [UNRECOGNIZED DRUG - OTHER] MT SCH ×5 (06:50)
[2016-04-09 06:55] LABS: PROTHROMBIN TIME (PATIENT) 33.4 SECONDS (9.0-12.0)
[2016-04-09 07:00] VITALS: BP 149/91; PULSE 69; TEMP 36.5; O2SAT 94
[2016-04-09 08:00] VITALS: O2SAT 94
[2016-04-09] MEDS: ASPIRIN 81 MG ECTAB PO SCH (08:00)
[2016-04-09] MEDS: MAGNESIUM OXIDE 400 MG TAB PO SCH (08:01)
[2016-04-09] MEDS: FERROUS SULFATE 325 MG TAB PO SCH (08:01)
[2016-04-09] MEDS ORDERED: LOSARTAN/HCTZ 50-12.5 EA TAB PO SCH (09:00)
[2016-04-09] MEDS ORDERED: AMLODIPINE BESYLATE 5 MG TAB PO SCH (09:00)
--- NOTE | 2016-04-09 10:44 | Progress Note ---
Internal Med Progress Note Date of Service: Apr 09, 2016. Provider Documentation: SUBJECTIVE: Patient 's diplopia has improved and almost resolved today. No localized weakness, nausea, vomiting, headache, blurry vision, numbness/ tingling, vertigo, syncope. No chest pain, SOB, fever, chills. BP improved- 140s OBJECTIVE: Vital Signs-as noted below Exam: General-AAOX3, no distress Eyes-Diplopia + which disappears when closes one eye Neck-Supple, no carotid bruits, no JVD Lungs-AEBE, no wheezing, rhonchi Heart-S1, S2 normal, murmur + Abdomen-Soft, non tender, non distended, BS present Extremities-No edema Neuro-AAOX3, Diplopia +, No facial droop, Power- 5/5, Sensory normal Lab data as noted below. Diagnostic Radiology CT OF THE HEAD WITHOUT CONTRAST CLINICAL HISTORY: Diplopia, on coumadin; rule out bleed COMPARISON STUDY: No previous studies for comparison. CT DOSE: 537.48 mGy.cm TECHNIQUE: Helical axial images of the head were obtained without IV contrast. Automated exposure control was utilized for the study. FINDINGS: No acute intracranial hemorrhage, midline shift or mass effect is present. Ventricular system is normal. The basilar cisterns are patent. There are no extra-axial collections. A 2.4 cm focus of encephalomalacia within the right parieto-occipital region is consistent with an old infarct. There is an old 1 cm lacunar infarct within the left thalamus. There is a 0.8 cm age indeterminate lacunar infarct within the right thalamus. There are no findings to suggest acute dural sinus thrombosis or acute territorial infarct. There may be old infarcts within the bilateral cerebellar hemispheres. There are no significant calvarial abnormalities. Visualized portions of the sinuses and mastoid air cells are clear. IMPRESSION: 1. No acute intracranial hemorrhage or mass effect. 2. Multiple old infarcts, as described above. 3. Age indeterminate 8 mm lacunar infarct within the right thalamus. EKG Initial EKG- atrial fibrillation, nonspecific T wave inversion in III and aVF- no significant change from prior EKG Repeat EKG- bradycardia, no P waves noted, rate 47 bpm, nonspecific T wave inversion in III and aVF MRI BRAIN IMPRESSION: 1. No evidence of intracranial mass 2. Multiple old infarcts 3. Equivocal 2 mm acute infarct involving the right midbrain ASSESSMENT & PLAN: Assessment and Plan STROKE, ACUTE RIGHT MIDBRAIN Presented with DIPLOPIA- Improving, almost resolved. Per ophthalmology exam- normal eye exam, was sent to ED due to hypertensive urgency and rule out stroke Risk factors: Chronic atrial fibrillation, mechanical mitral valve on coumadin with subtherapeutic INR -Work up - CT head- No acute hemorrhage or mass effect, + multiple old infarcts , + age indeterminate 8 mm lacunar infarct right thalamus; US carotid- Moderate bilateral atheromatous changes with no hemodynamically significant stenosis, Echo- Intact Interatrial septum, EF 55-60%, MRI brain- 2 mm acute infarct right midbrain, multiple old strokes, MRA brain- no acute abnormalities; LDL - 51 at goal -ASA 81 mg to be continued per d/w cardiology/neurology, On coumadin with INR 3.0 -Avoiding Bridging with IV Heparin due to recent hx of GI bleeding, requiring transfer to [facility]. -Neurology consulted, appreciate inputs. Cleared for discharge. HYPERTENSIVE URGENCY- Improved and near goal BP initially high as 260s/ 150's in ER; in setting of missed home dose of clonidine x 2 days Treated in ER with hydralazine 10 mg IV and clonidine 0.2 mg -Losartan-HCTZ restarted by cardiology. Amlodipine 5 mg added yon 04/07/16- Increased to 10 mg on 04/08/16. HCTZ/Losartan increased to 100/25 mg on 04/08/16 by cardiology Clonidine discontinued. No BB -Monitor BP closely outpatient CHRONIC ATRIAL FIBRILLATION WITH SLOW VENTRICULAR RESPONSE HR initially normal then became bradycardic to 40-s-50s in ER, asymptomatic -Not on any beta blockers -Anticoagulation- coumadin, INR 3.0 (Goal : 2.5-3.5 due to mechanical valve) -Cardiology consulted. 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 HISTORY OF GI BLEED Had lower GI bleed in December 2015 which occurred s/p polypectomy done at [facility] on 01/12/16 Required 3 units PRBC and transfer to [facility] for persistent bleeding Colonoscopy Dr Simmons on 01/13- Cauterization of recently bleeding polyp, clip placement at multiple polypectomy bleeding bases Colonoscopy [facility] 01/18/16- 7 mm cecal polyp s/p cold snare and clip closure. Post polypectomy ulcer with pigmented protuberance and residual polyp s/p cold snaring of residual polyp and clip closure. Post polypectomy ulcer with adherent clot s/p injection of dilute epinephrine, snare removal of clot revealing visible vessel, snare removal of misplaced clips and complete closure with hemostatic clip. 3 mm polyp in the transverse colon s/p cold snare. Internal hemorrhoids. Poor colon preparation with solid stool precluding visualization of the third polypectomy site." -Denies recurrent GI bleeding HX OF ORAL CANCER S/P RADIATION -Continue magic mouthwash ACHS DVT PROPHYLAXIS On Coumadin- INR therapeutic CODE STATUS Full code per my discussion with the patient DISPOSITION Ok to discharge today Eager to be discharged home today Follow up with coumadin clinic Follow up with neurology in 3-4 weeks. Vital Signs: Date Time Temp Pulse Resp B/P Pulse Ox O2 Delivery O2 Flow Rate FiO2 04/09/16 08:00 94 Room Air 04/09/16 07:00 36.5 69 20 149/91 94 Room Air 04/09/16 04:00 92 Room Air 04/09/16 03:10 36.5 76 18 161/93 92 Room Air 04/09/16 00:01 92 Room Air 04/08/16 23:53 36.3 76 20 136/82 92 Room Air 04/08/16 20:00 91 Room Air 04/08/16 19:42 36.8 83 18 158/99 91 Room Air 04/08/16 17:22 161/93 04/08/16 17:21 169/94 04/08/16 16:00 Room Air 04/08/16 15:25 168/100 04/08/16 15:22 168/92 04/08/16 15:21 36.6 80 184/102 93 Room Air 04/08/16 12:12 36.5 82 20 151/88 95 Room Air 04/08/16 12:05 36.8 76 18 93 Room Air 04/08/16 12:00 Room Air Lab Results: Results Past 24 Hours Test 04/09/16 06:07 Range/Units Prothrombin Time 33.4 9.0-12.0 SECONDS Prothromb Time International Ratio 3.0 0.9-1.1
[2016-04-09] MEDS ORDERED: LOSA100T26 PO (10:46)
[2016-04-09] MEDS ORDERED: CMD4 PO (10:46)
[2016-04-09] MEDS ORDERED: ASPEC81 PO (10:46)
--- NOTE | 2016-04-09 10:50 | Discharge Instructions ---
Discharge Instructions Admission Reason for Admission: Diplopia, Hypertensive Urgency Discharge Discharge Diagnosis / Problem: 1. Acute stroke, right midbrain 2. Hypertensive urgency Discharge Goals Goal(s): Improve function, Improve disease control, Diagnostic testing, Therapeutic intervention, Prevent Disease Progression Activity Recommendations Activity Limitations: resume your previous activity (as tolerated) . Instructions / Follow-Up Instructions / Follow-Up MEDICATION CHANGES: 1. Discontinue Clonidine 2. New medication: Aspirin 81 mg daily for stroke 3. New medication: HCTZ/Losartan increased to 2 tabs (100/25 mg) daily from 1 tab 4. Coumadin dose - 4 mg today evening and daily till next INR draw at coumadin clinic in 3 days as scheduled. FOLLOW UP: 1. With your PCP in 1 week. Call for appt date/time 2. With coumadin clinic in 3 days as per schedule 3. With neurology, Dr Sheppard/Aissatou Jones PA-C in 3-4 weeks. Risk Factors for Stroke: You can reduce your chances of stroke by working with your medical provider to adopt a healthy lifestyle. Some specific ways to lower your chance of stroke are: * If you are a smoker, now is the time to stop smoking cigarettes * If you are diabetic, improve the control of your blood sugars * Avoid excessive amounts of alcohol * Control high blood pressure * Lose weight if you are overweight * Be sure to lead an active lifestyle * Eat a healthy diet low in salt, cholesterol and fat You should know about other risk factors for stroke that you are unable to control. These include: * Age 55 years or older * Male gender * Certain racial groups: , or / * Family History of Stroke, Mini stroke or Heart Attack * Sickle Cell Disease Follow Up: It is important for you to keep your follow up appointments with your medical provider. Current Hospital Diet Patient's current hospital diet: AHA Diet (Heart Healthy) Discharge Diet Recommended Diet: AHA Diet (Heart Healthy), Low Sodium Diet (2gm Na) Pending Studies Studies pending at discharge: no Laboratory Results Hemoglobin A1c Test 04/04/16 14:40 Range/Units Estimated Average Glucose 123 mg/dl Hemoglobin A1c 5.9 H 4.5-5.6 % Lipid Panel Test 04/05/16 06:50 Range/Units Triglycerides Level 123 0-150 mg/dl Cholesterol Level 123 0-200 mg/dl HDL Cholesterol 47 mg/dl Cholesterol/HDL Ratio 2.6 LDL Cholesterol, Calculated 51 mg/dl Medical Emergencies . Who to Call and When: Medical Emergencies: Call 911 immediately if you experience any of the following warning signs and symptoms of Stroke: * Sudden numbness or weakness of the face, arm or leg, especially on one side of the body * Sudden confusion, trouble speaking or understanding * Sudden trouble seeing in one or both eyes * Sudden trouble walking, dizziness, loss of balance or coordination * Sudden severe headache with no cause Do not delay calling 911 if you experience any warning signs or symptoms of a stroke. Delay in seeking medical attention may affect what treatments can be given to you. . Non-Emergent Contact Non-Emergency issues call your: Primary Care Provider . . "Provider Documentation" section prepared by Maty Webber. Stroke Core Measures Reason no t-PA for Stroke: Treatment not indicated Reason no antithrom by day 2: Treatment provided - N/A Reason no antithrom at D/C: Treatment provided - N/A Reason no statin at D/C: Treatment not indicated Reason no anticoag w/a fib: Treatment provided - N/A VTE Core Measure Inpt VTE Proph given/why not?: Warfarin (Coumadin)
--- NOTE | 2016-04-09 10:54 | Discharge Summary ---
Discharge Summary Admission Date: Apr 04, 2016 at 18:53 Discharge Date: Apr 09, 2016 Discharge Disposition: Home Principal Diagnosis: 1. Acute stroke, Right Midbrain 2. Hypertensive Urgency Secondary Diagnoses/Problems: 1. Chronic Atrial Fibrillation 2. Prosthetic Mechanical Mitral Valve 2. Chronic anticoagulation on coumadin with goal 2.5-3.5 3. Hx of oral cancer s/p radiation 4. Hx of GI bleeding Procedures: Tele monitoring CT head MRI brain MRA Brain US carotid duplex Coumadin with INR monitoring Pending Studies/Follow-Up: Instructions / Follow-Up Instructions / Follow-Up MEDICATION CHANGES: 1. Discontinue Clonidine 2. New medication: Aspirin 81 mg daily for stroke 3. New medication: HCTZ/Losartan increased to 2 tabs (100/25 mg) daily from 1 tab 4. Coumadin dose - 4 mg today evening and daily till next INR draw at coumadin clinic in 3 days as scheduled. MONITOR 1. BP with recent changes in medications, discontinuation of clonidine Advised to do home BP monitoring and take it with him during next PCP visits FOLLOW UP: 1. With your PCP in 1 week. Call for appt date/time 2. With coumadin clinic in 3 days as per schedule 3. With neurology, Dr Sheppard/Aissatou Jones PA-C in 3-4 weeks. Medication Reconciliation New Medications: Aspirin (Aspirin EC Low Dose) 81 Mg Ectab 81 MG PO QAM for 30 Days, #30 TAB 2 Refills Warfarin Sod (Coumadin) 4 Mg Tab 4 MG PO DAILY@16 for 14 Days, #14 TAB Changed Medications: Losartan Potassium & Hydrochlo (Losartan Potassium/Hydroc) 1 Tab Tab 2 TAB PO DAILY for 30 Days, #60 TAB 5 Refills (Changed from: 1 TAB; 30) Continued Medications: Cyanocobalamin (B12) Unknown Strength Tab Unknown Dose PO DAILY Ferrous Sulfate (Iron (Ferrous Sulfate)) Unknown Strength Tab 1 TAB PO DAILY Furosemide (Furosemide) 20 Mg Tab 20 MG PO DAILY PRN for weight gain or edema Magic Swizzle (Magic Swizzle - SUCRALFA/ALUM/MAG/DIPHEN/LIDO) 240 Ml Susp 15-30 TSP PO ACHS, #240 ML 100ml Sucralfate 50ml Maalox 50ml Diphenhydramine 40ml 2% Aq. Lidocaine Swish and Swallow Magnesium Oxide (Mag-Ox) Unknown Strength Tab 1 TAB PO DAILY, TAB Potassium Chloride (K-Tab) 20 Meq Tab 20 MEQ PO UD PRN for with furosemide Discontinued Medications: Clonidine Hcl (Catapres) Unknown Strength Tab Unknown Dose PO HS for 30 Days, TAB 5 Refills Warfarin Sod (Coumadin) 5 Mg Tab 2.5 MG PO UD 2.5 mg PO on Monday, Monday, and Monday Warfarin Sodium (Coumadin) 5 Mg Tab 5 MG PO UD, TAB 5 mg PO on Monday, Monday, , and Monday Admission Information HPI (per Admitting provider): This is a 75 year old male with chronic atrial fibrillation, history of mechanical mitral valve replacement, on Coumadin history of lower GI bleed in , labile hypertension, hx tongue and tonsillar CA treated in 2002, and other problems listed below who presents to the ED with diplopia x 2 days. Patient states 2 days ago he developed sudden onset of diplopia which has been constant from that time. He states it is horizontal and only occurs with both eyes open. He attributed his symptoms to clonidine so he stopped taking 2 days ago. Patient saw ophthalmology this morning and was noted to be hypertensive to 170s systolic and was sent to the ER. BLLE edema has been at baseline and has not taken furosemide in past few days. He did take losartan-HCTZ this morning. He denies CONTRERAS, dizziness blurred vision, facial numbness or drooping, speech or swallowing difficulty, focal numbness or weakness, fever, chills, URI symptoms, cough, SOB, chest pain, palpitations, abdominal pain, N/V/D, urinary changes, recent abnormal bleeding. Pt denies history of TIA or CVA. In the ER patient found to be hypertensive as high as 260s systolic. He was treated with hydralazine 10 mg IV and clonidine 0.2 mg PO with normalization of BP. In the ER his HR was initially normal but became bradycardic to 40s-50s. Pt notes prior hx of bradycardia and states he was considered for pacemaker in the past. Pt denies prior hx of CVA or TIA. Physical Exam (per Admitting): General Appearance: WD/WN, no apparent distress, + pertinent finding ( pleasant cooperative alert 75 year old male, no distress) Head: normocephalic, atraumatic Eyes: normal inspection, PERRL, EOMI Respiratory/Chest: lungs clear, normal breath sounds, no respiratory distress, no accessory muscle use Cardiovascular: normal peripheral pulses, + bradycardia (HR 40s, improved to 50s), + irregularly irregular, + pertinent finding (mechanical valve sound) Abdomen/GI: normal bowel sounds, non tender, soft Extremities/Musculoskelatal: no calf tenderness, + pertinent finding (trace pretibial edema BLLE) Neurologic/Psych: cork insulator II-XII nml as tested, no motor/sensory deficits, alert , normal mood/affect, oriented x 3, + pertinent finding (finger to nose intact bilaterally) Skin: warm/dry, + pertinent finding (chronic venous stasis changes BLLE) Hospital Course Assessment and Plan STROKE, ACUTE RIGHT MIDBRAIN Presented with DIPLOPIA- Improving, almost resolved. Per ophthalmology exam- normal eye exam, was sent to ED due to hypertensive urgency and rule out stroke Risk factors: Chronic atrial fibrillation, mechanical mitral valve on coumadin with subtherapeutic INR -Work up - CT head- No acute hemorrhage or mass effect, + multiple old infarcts , + age indeterminate 8 mm lacunar infarct right thalamus; US carotid- Moderate bilateral atheromatous changes with no hemodynamically significant stenosis, Echo- Intact Interatrial septum, EF 55-60%, MRI brain- 2 mm acute infarct right midbrain, multiple old strokes, MRA brain- no acute abnormalities; LDL - 51 at goal -ASA 81 mg to be continued per d/w cardiology/neurology, On coumadin with INR 3.0 -Avoiding Bridging with IV Heparin due to recent hx of GI bleeding, requiring transfer to [facility]. -Neurology consulted, appreciate inputs. Cleared for discharge. HYPERTENSIVE URGENCY- Improved and near goal BP initially high as 260s/ 150's in ER; in setting of missed home dose of clonidine x 2 days Treated in ER with hydralazine 10 mg IV and clonidine 0.2 mg -Losartan-HCTZ restarted by cardiology. Amlodipine 5 mg added yon 04/07/16- Increased to 10 mg on 04/08/16. HCTZ/Losartan increased to 100/25 mg on 04/08/16 by cardiology Clonidine discontinued. No BB -Monitor BP closely outpatient CHRONIC ATRIAL FIBRILLATION WITH SLOW VENTRICULAR RESPONSE HR initially normal then became bradycardic to 40-s-50s in ER, asymptomatic -Not on any beta blockers -Anticoagulation- coumadin, INR 3.0 (Goal : 2.5-3.5 due to mechanical valve) -Cardiology consulted. 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 HISTORY OF GI BLEED Had lower GI bleed in December 2015 which occurred s/p polypectomy done at [facility] on 01/12/16 Required 3 units PRBC and transfer to [facility] [place] for persistent bleeding Colonoscopy Dr Simmons on 01/13- Cauterization of recently bleeding polyp, clip placement at multiple polypectomy bleeding bases Colonoscopy [facility] [place] 01/18/16- 7 mm cecal polyp s/p cold snare and clip closure. Post polypectomy ulcer with pigmented protuberance and residual polyp s/p cold snaring of residual polyp and clip closure. Post polypectomy ulcer with adherent clot s/p injection of dilute epinephrine, snare removal of clot revealing visible vessel, snare removal of misplaced clips and complete closure with hemostatic clip. 3 mm polyp in the transverse colon s/p cold snare. Internal hemorrhoids. Poor colon preparation with solid stool precluding visualization of the third polypectomy site." -Denies recurrent GI bleeding HX OF ORAL CANCER S/P RADIATION -Continue magic mouthwash ACHS DVT PROPHYLAXIS On Coumadin- INR therapeutic CODE STATUS Full code per my discussion with the patient DISPOSITION Ok to discharge today Eager to be discharged home today Follow up with coumadin clinic Follow up with neurology in 3-4 weeks. Total time spent on discharge = 42 MINUTES This includes examination of the patient, discharge planning, medication reconciliation, and communication with other providers. Discharge Instructions Discharge Diagnosis / Problem: 1. Acute stroke, right midbrain 2. Hypertensive urgency Discharge Goals Goal(s): Improve function, Improve disease control, Diagnostic testing, Therapeutic intervention, Prevent Disease Progression Activity Recommendations Activity Limitations: resume your previous activity (as tolerated) . Instructions / Follow-Up Instructions / Follow-Up MEDICATION CHANGES: 1. Discontinue Clonidine 2. New medication: Aspirin 81 mg daily for stroke 3. New medication: HCTZ/Losartan increased to 2 tabs (100/25 mg) daily from 1 tab 4. Coumadin dose - 4 mg today evening and daily till next INR draw at coumadin clinic in 3 days as scheduled. FOLLOW UP: 1. With your PCP in 1 week. Call for appt date/time 2. With coumadin clinic in 3 days as per schedule 3. With neurology, Dr Sheppard/Aissatou Jones PA-C in 3-4 weeks. Risk Factors for Stroke: You can reduce your chances of stroke by working with your medical provider to adopt a healthy lifestyle. Some specific ways to lower your chance of stroke are: * If you are a smoker, now is the time to stop smoking cigarettes * If you are diabetic, improve the control of your blood sugars * Avoid excessive amounts of alcohol * Control high blood pressure * Lose weight if you are overweight * Be sure to lead an active lifestyle * Eat a healthy diet low in salt, cholesterol and fat You should know about other risk factors for stroke that you are unable to control. These include: * Age 55 years or older * Male gender * Certain racial groups: , or / * Family History of Stroke, Mini stroke or Heart Attack * Sickle Cell Disease Follow Up: It is important for you to keep your follow up appointments with your medical provider. Current Hospital Diet Patient's current hospital diet: AHA Diet (Heart Healthy) Discharge Diet Recommended Diet: AHA Diet (Heart Healthy), Low Sodium Diet (2gm Na) Pending Studies Studies pending at discharge: no Laboratory Results Hemoglobin A1c Test 04/04/16 14:40 Range/Units Estimated Average Glucose 123 mg/dl Hemoglobin A1c 5.9 H 4.5-5.6 % Lipid Panel Test 04/05/16 06:50 Range/Units Triglycerides Level 123 0-150 mg/dl Cholesterol Level 123 0-200 mg/dl HDL Cholesterol 47 mg/dl Cholesterol/HDL Ratio 2.6 LDL Cholesterol, Calculated 51 mg/dl Medical Emergencies . Who to Call and When: Medical Emergencies: Call 911 immediately if you experience any of the following warning signs and symptoms of Stroke: * Sudden numbness or weakness of the face, arm or leg, especially on one side of the body * Sudden confusion, trouble speaking or understanding * Sudden trouble seeing in one or both eyes * Sudden trouble walking, dizziness, loss of balance or coordination * Sudden severe headache with no cause Do not delay calling 911 if you experience any warning signs or symptoms of a stroke. Delay in seeking medical attention may affect what treatments can be given to you. . Non-Emergent Contact Non-Emergency issues call your: Primary Care Provider . . "Provider Documentation" section prepared by Maty Webber. Stroke Core Measures Reason no t-PA for Stroke: Treatment not indicated Reason no antithrom by day 2: Treatment provided - N/A Reason no antithrom at D/C: Treatment provided - N/A Reason no statin at D/C: Treatment not indicated Reason no anticoag w/a fib: Treatment provided - N/A VTE Core Measure Inpt VTE Proph given/why not?: Warfarin (Coumadin)
--- NOTE | 2016-04-09 10:55 | PROGRESS NOTE ---
DATE: 04/09/2016 FOLLOWUP VISIT HISTORY OF PRESENT ILLNESS: The patient is a 75-year-old male with a mechanical mitral valve and atrial fibrillation who presented with embolic stroke. The patient was subtherapeutic on his warfarin on admission, but also was markedly hypertensive with hypertensive urgency. His blood pressure is better controlled today and his INR is therapeutic. I believe he can be discharged to home with outpatient followup. OBJECTIVE: GENERAL: He is alert and oriented, comfortably sitting in a chair. VITAL SIGNS: Blood pressure is 140/85, pulse is regular at 70 beats per minute. He is afebrile. HEENT: He is normocephalic. Pupils are equal and reactive to light. Extraocular muscles are intact bilaterally. NECK: The neck veins are flat. Carotids have good upstrokes bilaterally without bruits. Thyroid is nonpalpable. RESPIRATORY: Breath sounds equal bilaterally and clear to auscultation. CARDIOVASCULAR: Heart has an irregular rhythm. Normal S1, S2. No S3, S4. No cardiac rubs or murmurs. GASTROINTESTINAL: Abdomen is soft, nontender without organomegaly. EXTREMITIES: Free of edema, digital clubbing, or cyanosis. NEUROLOGIC: Grossly intact. SKIN: Warm to touch. LYMPH NODES: Negative to palpation. LABORATORY DATA: INR is 3.0. IMPRESSION: 1. Status post embolic stroke. 2. Mechanical mitral valve. 3. Atrial fibrillation. RECOMMENDATIONS: The patient has to be kept with an INR between 2.5 and 3.5. The patient had aspirin added earlier in the admission but now it has been discontinued. I believe that his previous history of GI bleeding. If he continues to have embolic events, there would be no choice but to add back the aspirin. For now, we will encourage and emphasize that his INR has to be kept within the above range. He has a followup appointment with Dr. Milan as an outpatient which he should keep. ROSA
[2016-04-09] MEDS ORDERED: AMLO-114 PO (18:12)
--- NOTE | 2016-04-19 05:59 | EDITING REQUIRED CODING QUERY ---
CODING QUERY To promote full compliance with coding requirements relating to patient care, provider participation is requested in all cases of ward supervisor uncertainty. Please assist us with the question(s) below: Coding Question(s): Please clarify below, in your clinical opinion, regarding the Acute Stroke, Right Midbrain documented in the record and the discharge summary. The first Neurology consult documents as likely embolic. ( + ) Acute Stroke, likely embolic, of the right middle cerebral artery ( ) Acute Stroke, likely embolic, of other specified artery - Specify ( ) Acute Stroke, Other - Specify ( ) Acute Stroke, unspecified Physician's Response(s): Thank you Mer Saavedra Principal Diagnosis: "_that condition established after study, to be chiefly responsible for occasioning the admission of the patient to the hospital for care." Co-Existing Principal Diagnosis: "_when two or more diagnoses equally meet the criteria for principal diagnosis as determined by the circumstances of admission, diagnostic work up, and/or therapy provided, and the Alphabetic Index, Tabular List, or another coding guideline does not provide sequencing direction, any one of the diagnoses may be sequenced first." "When the physician has documented what appears to be a current diagnosis in the body of the record, but has not included the diagnosis in the final diagnostic statement, the physician should be asked whether the diagnosis should be added." (Source Coding [facility] 2 QTR90. p3-4)
[2016-08-15] MEDS ORDERED: LOSA100T65 PO ×2 (13:27→14:13)
[2016-10-20] MEDS ORDERED: CYAN1TAB18 PO (10:25)
[2016-10-20] MEDS ORDERED: POTA1TAB97 PO (19:12)
[2016-10-20] MEDS ORDERED: LSX20 PO (19:12)
== END 2016-04-09 11:36 | disposition home or self-care (01) | DRG 66 ==
LOC: ENRESERVTM → ENRESERVDT → C.EDB 14:16 → C.2T 18:53
PROVIDERS: ADMIT Internal Medicine; ATTEND Internal Medicine
DX: I63.411 Cerebral infarction due to embolism of right middle cerebral artery (principal); I16.0 Hypertensive urgency; T46.5X6A Underdosing of other antihypertensive drugs, initial encounter; Z91.128 Patient's intentional underdosing of medication regimen for other reason; H53.2 Diplopia; R29.700 NIHSS score 0; E87.6 Hypokalemia; I48.2 Chronic atrial fibrillation; R79.1 Abnormal coagulation profile; I11.9 Hypertensive heart disease without heart failure; Z51.81 Encounter for therapeutic drug level monitoring; Z79.899 Other long term (current) drug therapy; Z79.01 Long term (current) use of anticoagulants; Z95.4 Presence of other heart-valve replacement; Z86.73 Personal history of transient ischemic attack (TIA), and cerebral infarction without residual deficits; Z85.810 Personal history of malignant neoplasm of tongue; Z85.818 Personal history of malignant neoplasm of other sites of lip, oral cavity, and pharynx; Z92.21 Personal history of antineoplastic chemotherapy; Z92.3 Personal history of irradiation; Z87.19 Personal history of other diseases of the digestive system; Z82.49 Family history of ischemic heart disease and other diseases of the circulatory system; Z83.3 Family history of diabetes mellitus

== ENCOUNTER 2016-04-27 09:11 | Emergency (ER) | payer OTHER, BC ==
[~2016-04-27] VITALS: Ht 182.9 cm; Wt 111.8 kg
[~2016-04-27 09:11] MED LIST changes: +AMLO-114 PO; +ASPEC81 PO; +CMD4 PO; -CMD5 PO; -CTP1X PO; +CYAN100073 PO; +FERR50TA3 PO; -LSX20 PO; +MAGN400T5 PO; -POTA1POW PO; -PROTONIX IV; -WARF5TAB90 PO
[2016-04-27 09:14] VITALS: TEMP 36.5
--- NOTE | 2016-04-27 09:45 | EMERGENCY ROOM VISIT NOTE ---
History Report prepared by Kimberlyn: Chela Moyer Under the Supervision of: Dr. Keyana Esposito M.D. First contact with patient: 09:25 Chief Complaint: CHEST PAIN Stated Complaint: HEART PAINS History of Present Illness The patient is a 75 year old male who presents to the Emergency Room with complaints of intermittent left sided chest pain that began yesterday. The pain is sharp. He states that the pain lasts less than a second before resolving. He has not had an episode in the past hour, but has had 10 episodes since 5AM. The pain does not seem to come on when he is exerting himself. The patient has a history of a-fib and a [facility]. Chaitanya's valve and is on Coumadin. He called his doctor regarding his symptoms and was referred to the ED. He notes that his leg swelling is currently at baseline - he takes Lasix as needed. He has a history of CHF. Denies fevers, shortness of breath with exertion or other complaints. He has never smoked. He does not have any stents. Source of History: patient Onset: yesterday Position: chest (left) Quality: sharp Timing: intermittent Associated Symptoms: No SOB, No fevers Review of Systems See HPI for pertinent positives & negatives. A total of 10 systems reviewed and were otherwise negative. Past Medical & Surgical Medical Problems: (1) Atrial Fibrillation (2) GI bleed (3) Heart Valve Transplant (4) History of lower GI bleeding (5) History of oral cancer (6) Hypertension (7) Hypertension Nos (8) Tinnitus Nos Surgical Problems: (1) H/O colonoscopy (2) H/O mitral valve replacement with mechanical valve (3) History of dental surgery (4) History of mandibular surgery (5) S/P cholecystectomy (6) S/P ERCP Family History Diabetes mellitus SISTER Heart disease Social History Smoking Status: Never Smoker Alcohol Use: none Drug Use: none Marital Status: Housing Status: lives with family Occupation Status: retired Current/Historical Medications Scheduled Amlodipine (Norvasc), 10 MG PO DAILY Aspirin (Aspirin EC Low Dose), 81 MG PO QAM Cyanocobalamin (B-12), 1,000 MCG PO DAILY Ferrous Sulfate (Ferrous Sulfate), 325 MG PO DAILY Losartan Potassium & Hydrochlo (Hyzaar), 1 TAB PO DAILY Magnesium Oxide (Mg Supplement (Magnesium Oxide), 400 MG PO DAILY Warfarin Sod (Febtoven), 5 MG PO DAILY Scheduled PRN Furosemide (Furosemide), 20 MG PO DAILY PRN for weight gain or edema Potassium Chloride (K-Tab), 20 MEQ PO UD PRN for with furosemide Allergies Coded Allergies: Allopurinol (Unverified Allergy, Unknown, unknown, 04/27/16) Lisinopril (Verified Adverse Reaction, Unknown, COUGH, 04/27/16) Physical Exam Vital Signs Date Time Temp Pulse Resp B/P Pulse Ox O2 Delivery O2 Flow Rate FiO2 04/27/16 13:27 73 22 124/73 94 04/27/16 13:02 73 04/27/16 12:48 65 22 124/73 94 Room Air 04/27/16 12:47 Room Air 04/27/16 11:11 65 18 151/83 95 Room Air 04/27/16 09:32 71 04/27/16 09:14 36.5 81 18 144/90 96 Room Air Physical Exam Vital signs reviewed. General: Elderly, well-appearing 75, in no significant distress. HEENT: No scleral icterus, PERRLA, neck supple. Atraumatic. Cardiovascular: Rate controlled and irregular, systolic ejection murmur Pulmonary: Clear to auscultation bilaterally, normal work of breathing. Abdomen: Soft, nontender, nondistended, positive bowel sounds. Musculoskeletal: Atraumatic, 1+ pitting edema to the bilateral lower extremities. Neurologic: Patient awake alert and oriented x 3 Skin: Warm, dry, no rash Medical Decision & Procedures ER Provider Diagnostic Interpretation: Radiology results as stated below per my review and radiologist interpretation: CHEST ONE VIEW PORTABLE CLINICAL HISTORY: CHEST PAIN dyspnea COMPARISON STUDY: 01/15/2016 FINDINGS: Moderate stable cardiomegaly. Prior median sternotomy. Lungs are clear. Diaphragms are smooth. IMPRESSION: Moderate stable cardiomegaly. No acute process. Electronically signed by: Riky France M.D. 04/27/2016 10:20 AM Dictated Date/Time: 04/27/2016 10:20 AM Laboratory Results 04/27/16 09:32 Red Blood Count 5.09, Mean Corpuscular Volume 86.6, Mean Corpuscular Hemoglobin 29.5, Mean Corpuscular Hemoglobin Concent 34.0, Mean Platelet Volume 10.2, Neutrophils (%) (Auto) 71.2, Lymphocytes (%) (Auto) 19.8, Monocytes (%) (Auto) 7.0, Eosinophils (%) (Auto) 1.3, Basophils (%) (Auto) 0.5, Neutrophils # (Auto) 3.89, Lymphocytes # (Auto) 1.08, Monocytes # (Auto) 0.38, Eosinophils # (Auto) 0.07, Basophils # (Auto) 0.03 04/27/16 09:32 Test 04/27/16 09:32 04/27/16 11:26 White Blood Count 5.46 K/uL (4.8-10.8) Red Blood Count 5.09 M/uL (4.7-6.1) Hemoglobin 15.0 g/dL (14.0-18.0) Hematocrit 44.1 % (42-52) Mean Corpuscular Volume 86.6 fL (80-100) Mean Corpuscular Hemoglobin 29.5 pg (25-34) Mean Corpuscular Hemoglobin Concent 34.0 g/dl (32-36) Platelet Count 173 K/uL (130-400) Mean Platelet Volume 10.2 fL (7.4-10.4) Neutrophils (%) (Auto) 71.2 % Lymphocytes (%) (Auto) 19.8 % Monocytes (%) (Auto) 7.0 % Eosinophils (%) (Auto) 1.3 % Basophils (%) (Auto) 0.5 % Neutrophils # (Auto) 3.89 K/uL (1.4-6.5) Lymphocytes # (Auto) 1.08 K/uL (1.2-3.4) Monocytes # (Auto) 0.38 K/uL (0.11-0.59) Eosinophils # (Auto) 0.07 K/uL (0-0.5) Basophils # (Auto) 0.03 K/uL (0-0.2) RDW Standard Deviation 42.1 fL (36.4-46.3) RDW Coefficient of Variation 13.2 % (11.5-14.5) Immature Granulocyte % (Auto) 0.2 % Immature Granulocyte # (Auto) 0.01 K/uL (0.00-0.02) Prothrombin Time 45.3 SECONDS (9.0-12.0) Prothromb Time International Ratio 4.0 (0.9-1.1) Activated Partial Thromboplast Time 46.3 SECONDS (21.0-31.0) Partial Thromboplastin Ratio 1.8 Anion Gap 8.0 mmol/L (3-11) Est Creatinine Clear Calc Drug Dose 50.7 ml/min Estimated GFR () 47.8 Estimated GFR (Non- 41.2 BUN/Creatinine Ratio 21.1 (10-20) Calcium Level 9.2 mg/dl (8.5-10.1) Magnesium Level 2.3 mg/dl (1.8-2.4) Total Bilirubin 1.5 mg/dl (0.2-1) Direct Bilirubin 0.3 mg/dl (0-0.2) Aspartate Amino Transf (AST/SGOT) 12 U/L (15-37) Alanine Aminotransferase (ALT/SGPT) 17 U/L (12-78) Alkaline Phosphatase 108 U/L (45-117) Total Creatine Kinase 57 U/L (39-308) Creatine Kinase MB 1.1 ng/ml (0.5-3.6) Creatine Kinase MB Ratio 1.9 (0-3.0) Total Protein 8.3 gm/dl (6.4-8.2) Albumin 4.2 gm/dl (3.4-5.0) Bedside Troponin I 0.000 ng/ml (0-0.045) Laboratory results per my review. ECG Rate (beats per minute): 74 Rhythm: atrial fibrillation Findings: other (nonspecific atrioventricular conduction delay, respolarization abnormality in the inferior leads) ED Course 0940: Past medical records reviewed. The patient was evaluated in room A12. A complete history and physical examination was performed. 1218: I reassessed the patient. He was doing well. 1255: Upon reevaluation, the patient was resting comfortably. I discussed findings with him. He verbalized agreement of the treatment plan. The patient was discharged home. 1313: I discussed the case with Dr. Milan, [facility]. He agreed with the treatment plan and will follow up with the patient in 2 weeks. Medical Decision Chest pain: Acute coronary syndrome, pulmonary embolus, aortic dissection, musculoskeletal pain, pneumonia, pleural effusion, pneumothorax This patient was evaluated and appeared to be in no significant distress. IV access was obtained and laboratory work was drawn. 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 Laboratory work reveals an INR of 4.0. Cardiac enzymes are negative 2. Chest x-ray is negative. Patient was informed of the findings. I did discuss the case with Dr. Milan of cardiology. He knows the patient very well. He has an appointment with the patient in 2 weeks' time. The patient seems comfortable with the plan for discharge and will hold his Coumadin for 2 days. He will resume his Coumadin therapy as prescribed at that point. He will return to the ER for worsening of symptoms or any medical concerns. Consults Time Called: [phone] Consulting Physician: Christine Mace [facility] Returned Call: [phone] I discussed the case with him. He agreed with the treatment plan and will follow up with the patient in 2 weeks. Impression Primary Impression: Atypical chest pain Additional Impression: Supratherapeutic INR Scribe Attestation The scribe's documentation has been prepared under my direction and personally reviewed by me in its entirety. I confirm that the note above accurately reflects all work, treatment, procedures, and medical decision making performed by me. Departure Information Dispostion Home / Self-Care Referrals Adryan Milan M.D. Lazorka, Jeremy D. PA-C Forms HOME CARE DOCUMENTATION FORM, IMPORTANT VISIT INFORMATION Patient Instructions My [facility] Additional Instructions Diagnosis: Atypical chest pain, supra therapeutic INR Stop your Coumadin today and tomorrow. Then resume coumadin as prescribed. Have your INR repeated within 3 days. 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 Return to emergency for worsening of symptoms or any medical concerns. Problem Qualifiers
[2016-04-27 10:10] LABS: BASO % 0.5 %; BASO ABS # 0.03 K/uL (0-0.2); COMPLETE YES; EOS % 1.3 %; HEMATOCRIT 44.1 % (42-52); IG% 0.2 %; LYMPH % 19.8 %; LYMPH ABS # 1.08 K/uL (1.2-3.4); MEAN CELL VOLUME 86.6 fL (80-100); MEAN CORPUSCULAR HEMOGLOBIN 29.5 pg (25-34); MEAN PLATELET VOLUME 10.2 fL (7.4-10.4); NEUT % 71.2 %; PLATELET COUNT 173 K/uL (130-400); RED BLOOD COUNT 5.09 M/uL (4.7-6.1); WHITE BLOOD COUNT 5.46 K/uL (4.8-10.8)
--- NOTE | 2016-04-27 10:21 | DIAGNOSTIC IMAGING REPORT ---
CHEST ONE VIEW PORTABLE CLINICAL HISTORY: CHEST PAIN dyspnea COMPARISON STUDY: 01/15/2016 FINDINGS: Moderate stable cardiomegaly. Prior median sternotomy. Lungs are clear. Diaphragms are smooth. IMPRESSION: Moderate stable cardiomegaly. No acute process. Electronically signed by: Riky France M.D. 04/27/2016 10:20 AM Dictated Date/Time: 04/27/2016 10:20 AM
[2016-04-27] MEDS ORDERED: FERR325T5 PO (10:25)
[2016-04-27] MEDS ORDERED: MAGN1TAB19 PO (10:25)
[2016-04-27 10:26] LABS: PARTIAL THROMBOPLASTIN RATIO 1.8; PROTHROMBIN TIME (PATIENT) 45.3 SECONDS (9.0-12.0)
[2016-04-27] MEDS ORDERED: LOSA100T2 PO (10:27)
[2016-04-27] MEDS ORDERED: WARF5TAB7 PO (10:27)
[2016-04-27 10:30] LABS: BUN/CREATININE RATIO 21.1 (10-20); CALCIUM 9.2 mg/dl (8.5-10.1); CREATININE 1.6 mg/dl (0.60-1.40); MAGNESIUM 2.3 mg/dl (1.8-2.4); POTASSIUM 3.5 mmol/L (3.5-5.1)
[2016-04-27 10:35] LABS: CKMB/CK RATIO 1.9 (0-3.0)
[2016-04-27 12:47] VITALS: Ht 182.9 cm; Wt 111.8 kg
[2016-04-27 13:27] VITALS: BP 124/73; PULSE 73; O2SAT 94
[2016-08-15] MEDS ORDERED: LOSA100T65 PO ×2 (13:27→14:13)
[2016-10-20] MEDS ORDERED: CYAN1TAB18 PO (10:25)
[2016-10-20] MEDS ORDERED: POTA1TAB97 PO (19:12)
[2016-10-20] MEDS ORDERED: LSX20 PO (19:12)
== END 2016-04-27 13:29 | disposition home or self-care (01) ==
LOC: C.EDB 09:13 → C.EDA 13:29
DX: R07.89 Other chest pain (principal); R79.1 Abnormal coagulation profile; I48.91 Unspecified atrial fibrillation; I50.9 Heart failure, unspecified; I11.0 Hypertensive heart disease with heart failure; Z79.899 Other long term (current) drug therapy; Z79.01 Long term (current) use of anticoagulants; Z95.4 Presence of other heart-valve replacement; Z79.82 Long term (current) use of aspirin; Z85.819 Personal history of malignant neoplasm of unspecified site of lip, oral cavity, and pharynx; Z83.3 Family history of diabetes mellitus; Z82.49 Family history of ischemic heart disease and other diseases of the circulatory system

== ENCOUNTER 2016-08-12 16:31 | Inpatient (IN) | payer OTHER, BC ==
[~2016-08-12] VITALS: Ht 182.9 cm; Wt 112.2 kg
[~2016-08-12 16:31] MED LIST changes: -ALPR-385 PO; -ASPI81CH2 PO; -BP MED PO; -CYAN100T6 PO; -CYAN1TAB18 PO; -CYCL10TA6 PO; -HYZ/10015 PO; -LOSA100T65 PO; -LOSA1TAB PO; -LOSA1TAB38 PO; -LSX20 PO; -MGCS/ PO; -POTA1TAB97 PO; -TEMA15CA4 PO; -VERA120T15 PO; -WARF-246 PO; -WARF5TAB90 PO
[2016-08-12 17:55] LABS: COMPLETE YES; EOS % 0.3 %; HEMATOCRIT 41.7 % (42-52); IG% 0.2 %; LYMPH % 4.5 %; LYMPH ABS # 0.45 K/uL (1.2-3.4); MEAN CORPUSCULAR HGB CONC 34.1 g/dl (32-36); MEAN PLATELET VOLUME 10.1 fL (7.4-10.4); MONO % 9.5 %; NEUT % 85.5 %; PLATELET COUNT 202 K/uL (130-400); RED BLOOD COUNT 4.58 M/uL (4.7-6.1); WHITE BLOOD COUNT 10.11 K/uL (4.8-10.8)
[2016-08-12] MEDS ORDERED: WARF-246 PO (17:59)
[2016-08-12 18:05] LABS: INR 2.8 (0.9-1.1); PARTIAL THROMBOPLASTIN RATIO 1.5; PROTHROMBIN TIME (PATIENT) 30.8 SECONDS (9.0-12.0)
[2016-08-12 18:18] LABS: ALT/SGPT 22 U/L (12-78); AST/SGOT 18 U/L (15-37); BLOOD UREA NITROGEN 41 mg/dl (7-18); BUN/CREATININE RATIO 13.6 (10-20); CALCIUM 9.1 mg/dl (8.5-10.1); CARBON DIOXIDE 30 mmol/L (21-32); CHLORIDE 99 mmol/L (98-107); GLUCOSE 243 mg/dl (70-99); MAGNESIUM 2.5 mg/dl (1.8-2.4); POTASSIUM 3.5 mmol/L (3.5-5.1); SODIUM 139 mmol/L (136-145)
[2016-08-12 18:21] LABS: ALKALINE PHOSPHATASE 135 U/L (45-117); PHOSPHORUS 2.8 mg/dl (2.5-4.9)
[2016-08-12 18:47] LABS: MANUAL MICROSCOPIC REQUIRED? NO; REVIEW REQ? YES; URINE APPEARANCE CLOUDY (CLEAR); URINE BILIRUBIN NEG (NEG); URINE COLOR YELLOW; URINE NITRITE NEG (NEG); URINE SPECIFIC GRAVITY 1.023 (1.000-1.030); UROBILINOGEN NEG (NEG)
[2016-08-12] MEDS ORDERED: SODIUM CHLORIDE 0.9% 500ML 500 ML IV STA (18:49)
[2016-08-12] MEDS ORDERED: LANTUS PER UNIT CHARGE SQ ONE (20:15)
--- NOTE | 2016-08-12 20:19 | EMERGENCY ROOM VISIT NOTE ---
History Report prepared by Kimberlyn: Kristen Garces Under the Supervision of: Dr. Tobias Tyler D.O. First contact with patient: 17:21 Chief Complaint: REFERRED BY DOCTOR Stated Complaint: DOCTOR REFERRED;KIDNEYS History of Present Illness The patient is a 76 year old male who presents to the Emergency Room after being referred by his doctor over concerns of kidney failure. He had blood work this morning which indicated that his kidneys might be failing. He reports congestion, coughing, and wheezing. He was told that he might have an infection. He denies any nausea, vomiting, or urinary symptoms. He takes Lasix as needed when his legs swell. He took some Lasix yesterday. He has taken Lasix once in the past 2 weeks. He denies any other medication changes. He is on Coumadin. He notes that he does not drink a lot of water and drinks cream soda instead. He has a history of tongue and tonsil cancer. He denies any tobacco or alcohol use. 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 Review of Systems See HPI for pertinent positives & negatives. A total of 10 systems reviewed and were otherwise negative. Past Medical & Surgical Medical Problems: (1) ARF (acute renal failure) (2) Atrial Fibrillation (3) GI bleed (4) Heart Valve Transplant (5) History of lower GI bleeding (6) History of oral cancer (7) Hypertension (8) Hypertension Nos (9) Tinnitus Nos Surgical Problems: (1) H/O colonoscopy (2) H/O mitral valve replacement with mechanical valve (3) History of dental surgery (4) History of mandibular surgery (5) S/P cholecystectomy (6) S/P ERCP Family History Diabetes mellitus SISTER Heart disease Social History Smoking Status: Never Smoker Alcohol Use: none Drug Use: none Marital Status: Housing Status: lives with family Occupation Status: retired Current/Historical Medications Scheduled Amlodipine (Norvasc), 10 MG PO DAILY Aspirin (Aspirin EC Low Dose), 81 MG PO QAM Cyanocobalamin (B-12), 1,000 MCG PO DAILY Ferrous Sulfate (Ferrous Sulfate), 325 MG PO DAILY Losartan Potassium & Hydrochlo (Hyzaar), 1 TAB PO DAILY Magnesium Oxide (Mg Supplement (Magnesium Oxide), 400 MG PO DAILY Warfarin Sod (Jantoven), 5 MG PO 3XWK Warfarin Sodium (Warfarin Sodium), 0.5 TAB PO 4XWK Scheduled PRN Furosemide (Furosemide), 20 MG PO DAILY PRN for weight gain or edema Potassium Chloride (K-Tab), 20 MEQ PO UD PRN for with furosemide Allergies Coded Allergies: Allopurinol (Unverified Allergy, Unknown, unknown, 08/12/16) Lisinopril (Verified Adverse Reaction, Unknown, COUGH, 08/12/16) Physical Exam Vital Signs Date Time Temp Pulse Resp B/P (MAP) Pulse Ox O2 Delivery O2 Flow Rate FiO2 08/12/16 19:33 69 20 125/78 95 Room Air 08/12/16 18:04 68 08/12/16 16:38 36.7 78 18 123/70 95 Room Air Physical Exam GENERAL: Patient is awake, alert, and in no acute distress. Patient is resting comfortably and showing no signs of anxiety EYES: The conjunctivae are clear. The pupils are round and reactive. EARS, NOSE, MOUTH AND THROAT: The nose is without any evidence of any deformity. Mucous membranes are moist tongue is midline NECK: The neck is nontender and supple. RESPIRATORY: Lung sounds diminished throughout, scattered expiratory wheezing, no tachypnea or conversational dyspnea noted. CARDIOVASCULAR: Ectopy noted to auscultation, metallic click noted to auscultation, no definite murmur heard. GASTROINTESTINAL: The abdomen is soft. Bowel sounds are present in all quadrants. Abdomen is nontender MUSCULOSKELETAL/EXTREMITIES: There is no evidence of gross deformity full range of motion is noted in the hips and shoulders SKIN: There is pedal edema bilaterally. NEUROLOGIC: Patient is awake alert and oriented x3 Medical Decision & Procedures Laboratory Results 08/12/16 17:45 Red Blood Count 4.58, Mean Corpuscular Volume 91.0, Mean Corpuscular Hemoglobin 31.0, Mean Corpuscular Hemoglobin Concent 34.1, Mean Platelet Volume 10.1, Neutrophils (%) (Auto) 85.5, Lymphocytes (%) (Auto) 4.5, Monocytes (%) (Auto) 9.5, Eosinophils (%) (Auto) 0.3, Basophils (%) (Auto) 0.0, Neutrophils # (Auto) 8.65, Lymphocytes # (Auto) 0.45, Monocytes # (Auto) 0.96, Eosinophils # (Auto) 0.03, Basophils # (Auto) 0.00 08/12/16 17:45 Test 08/12/16 17:45 08/12/16 18:20 White Blood Count 10.11 K/uL (4.8-10.8) Red Blood Count 4.58 M/uL (4.7-6.1) Hemoglobin 14.2 g/dL (14.0-18.0) Hematocrit 41.7 % (42-52) Mean Corpuscular Volume 91.0 fL (80-100) Mean Corpuscular Hemoglobin 31.0 pg (25-34) Mean Corpuscular Hemoglobin Concent 34.1 g/dl (32-36) Platelet Count 202 K/uL (130-400) Mean Platelet Volume 10.1 fL (7.4-10.4) Neutrophils (%) (Auto) 85.5 % Lymphocytes (%) (Auto) 4.5 % Monocytes (%) (Auto) 9.5 % Eosinophils (%) (Auto) 0.3 % Basophils (%) (Auto) 0.0 % Neutrophils # (Auto) 8.65 K/uL (1.4-6.5) Lymphocytes # (Auto) 0.45 K/uL (1.2-3.4) Monocytes # (Auto) 0.96 K/uL (0.11-0.59) Eosinophils # (Auto) 0.03 K/uL (0-0.5) Basophils # (Auto) 0.00 K/uL (0-0.2) RDW Standard Deviation 43.8 fL (36.4-46.3) RDW Coefficient of Variation 13.1 % (11.5-14.5) Immature Granulocyte % (Auto) 0.2 % Immature Granulocyte # (Auto) 0.02 K/uL (0.00-0.02) Prothrombin Time 30.8 SECONDS (9.0-12.0) Prothromb Time International Ratio 2.8 (0.9-1.1) Activated Partial Thromboplast Time 39.7 SECONDS (21.0-31.0) Partial Thromboplastin Ratio 1.5 Anion Gap 10.0 mmol/L (3-11) Est Creatinine Clear Calc Drug Dose 26.8 ml/min Estimated GFR () 22.2 Estimated GFR (Non- 19.1 BUN/Creatinine Ratio 13.6 (10-20) Calcium Level 9.1 mg/dl (8.5-10.1) Phosphorus Level 2.8 mg/dl (2.5-4.9) Magnesium Level 2.5 mg/dl (1.8-2.4) Total Bilirubin 1.6 mg/dl (0.2-1) Direct Bilirubin 0.3 mg/dl (0-0.2) Aspartate Amino Transf (AST/SGOT) 18 U/L (15-37) Alanine Aminotransferase (ALT/SGPT) 22 U/L (12-78) Alkaline Phosphatase 135 U/L (45-117) Troponin I < 0.015 ng/ml (0-0.045) Pro-B-Type Natriuretic Peptide 1759 pg/ml (0-1800) Total Protein 8.6 gm/dl (6.4-8.2) Albumin 4.4 gm/dl (3.4-5.0) Lipase 114 U/L (73-393) Urine Color YELLOW Urine Appearance CLOUDY (CLEAR) Urine pH 5.0 (4.5-7.5) Urine Specific [place] 1.023 (1.000-1.030) Urine Protein 1+ (NEG) Urine Glucose (UA) 1+ (NEG) Urine Ketones TRACE (NEG) Urine Occult Blood NEG (NEG) Urine Nitrite NEG (NEG) Urine Bilirubin NEG (NEG) Urine Urobilinogen NEG (NEG) Urine Leukocyte Esterase NEG (NEG) Urine WBC (Auto) 1-5 /hpf (0-5) Urine RBC (Auto) 0-4 /hpf (0-4) Urine Hyaline Casts (Auto) 10-30 /lpf (0-5) Urine Epithelial Cells (Auto) 10-20 /lpf (0-5) Urine Bacteria (Auto) NEG (NEG) Urine Pathogenic Casts /lpf (0) Laboratory results per my review. Medications Administered Medications (Trade) Dose Ordered Sig/Maryjane Route Start Time Stop Time Status Last Admin Dose Admin Sodium Chloride 500 ml @ 999 mls/hr Q31M STAT IV 08/12/16 18:49 08/12/16 19:19 DC 08/12/16 18:56 999 MLS/HR Insulin Glargine (Lantus Per Unit) 5 units ONE ONCE SQ 08/12/16 20:15 08/12/16 20:16 DC 08/12/16 20:36 5 UNITS ECG Indication: SOB/dyspnea Rate (beats per minute): 65 Rhythm: atrial fibrillation Findings: PVC, other (no acute ST segment abnormality) Comparison ECG Date: 27-Apr-2016 Change: no significant change ED Course 172: The patient was evaluated in room C10. A complete history and physical examination were performed. 184: NSS 500 ml @ 999 mls/hr IV. 185: Upon reevaluation, the patient is resting comfortably. I discussed results and treatment plan with him. He verbalizes agreement and understanding. The patient will be evaluated for further management and care. 1920: I discussed the patient's case [facility]. The patient will be evaluated for further management. Medical Decision Prior records/ancillary studies reviewed and summarized above. Nursing notes reviewed. Additional history obtained from family. Differential diagnosis: Etiologies such as metabolic, infection, hypo/hyperglycemia, electrolyte abnormalities, cardiac sources, intracerebral event, toxicologic, neurologic, as well as others were entertained. Medication Reconciliation: I attest that I have personally reviewed the patient' s current medications list. The patient is a 76-year-old male who presented to the emergency department at the request of his primary care physician for abnormal laboratory studies. The patient has a history of fluid overload and has a prescription for Lasix that he takes when necessary. The patient took an extra dose of his Lasix recently. He went to see his family doctor for cough and edema and was sent for laboratory studies. His creatinine has been trending upward so he was sent to the emergency department for further evaluation. The patient's creatinine continues to trend upward. I'm unsure if his condition is related to a prerenal condition because of his extra dose of Lasix for could be related to his medications. He was treated with a small amount of IV fluids in the emergency department. I discussed the patient's laboratory studies with him. I also discussed his case with the on-call Gregestelle doheny eye hospitalist. They've agreed to evaluate the patient in the emergency department for further management and disposition. Consults Time Called: [phone] Consulting Physician: [facility] Returned Call: [phone] I discussed the patient's case with him. The patient will be evaluated for further management. Impression Primary Impression: Acute kidney injury Additional Impression: Dehydration Scribe Attestation The scribe's documentation has been prepared under my direction and personally reviewed by me in its entirety. I confirm that the note above accurately reflects all work, treatment, procedures, and medical decision making performed by me. Departure Information Dispostion Being Evaluated By Hospitalist Referrals Nadiya Multani CRNP (PCP) Patient Instructions My [facility] Problem Qualifiers
[2016-08-12] MEDS ORDERED: INSULIN GLARGINE SOLOSTAR 100 UNITS/ML 3 ML PEN SC ONE (20:30)
[2016-08-12] MEDS ORDERED: POTASSIUM CHLORIDE 10 MEQ TABCR PO STA (20:51)
[2016-08-12] MEDS ORDERED: WARFARIN SOD 5 MG TAB PO STA (21:01)
[2016-08-12] MEDS ORDERED: INSULIN ASPART 100 UNITS/ML 3 ML PEN SC ONE (21:05)
[2016-08-12] MEDS ORDERED: GLUCOSE 10 TABS/TUBE PO PRN (21:15)
[2016-08-12] MEDS ORDERED: GLUCOSE 40% GEL 15 GM TUBE PO PRN (21:15)
[2016-08-12] MEDS ORDERED: TRAMADOL HCL 50 MG TAB PO PRN (21:15)
[2016-08-12] MEDS ORDERED: ONDANSETRON INJ 2 MG/ML 2 ML VIAL IV PRN (21:15)
[2016-08-12] MEDS ORDERED: HYDROmorphone INJ 0.5 MG/0.5 ML SYR IV PRN (21:15)
[2016-08-12] MEDS ORDERED: ALBUT/IPRATROP 3MG/0.5MG NEB 3 ML VIAL INH PRN (21:15)
[2016-08-12] MEDS ORDERED: DEXTROSE 50% 50 ML SYR IV PRN (21:15)
[2016-08-12] MEDS ORDERED: ACETAMINOPHEN 325 MG TAB PO PRN (21:15)
[2016-08-12] MEDS ORDERED: GLUCAGON FOR INJ 1 MG VIAL SQ PRN (21:15)
[2016-08-12] MEDS ORDERED: NSS + 20MEQ KCL 1000ML 1,000 ML IV ONE (21:30)
[2016-08-12 21:38] VITALS: BP 161/90; PULSE 79; TEMP 36.7; O2SAT 96
[2016-08-12 21:46] VITALS: Ht 182.9 cm; Wt 112.2 kg
[2016-08-12 23:32] VITALS: BP 161/90; PULSE 46; TEMP 36.8; O2SAT 95
--- NOTE | 2016-08-13 01:11 | HISTORY & PHYSICAL EXAMINATION ---
DATE OF ADMISSION: 08/12/2016 PRIMARY CARE DOCTOR: Dr. Sherman. CHIEF COMPLAINT: abnormal blood work. HISTORY OF PRESENT ILLNESS: Medical history significant for Afib, history of mechanical MVR on Coumadin, Hx CVA. hypertension, history of tongue/tonsillar cancer, status post chemoradiation, history of colonic polyps, hx BPH as per px. Recent confinement, last March 2016, for an acute stroke of the right midbrain. Patient was seen at PCP's office yesterday for 3 days' history of cough symptoms, initially junky. Patient has been dealing with choking symptoms at home the last several months. Seen by a local ENT provider. Endoscopy showed "possible adhesions from radiation" as per px. At the PCP's office, the patient received a shot of steroids for bronchitis. Cough subsequently dried out. PX sent to [facility] for labs and CXR. Outpatient chest x-ray, mild cardiomegaly. outpatient creatinine noted to be 2.8. Appetite well as per px. He denies intake of NSAIDs or recent change in medications. Denies active bladder or urinary issues. Patient sent to the Emergency Room by PCP for further eval. MEDICAL HISTORY: As above. SURGERIES: He has had a mitral valve replacement, jaw surgery, dental surgery, gallbladder surgery, cholecystectomy. HOME MEDICATIONS: Include Coumadin, ferrous sulfate, furosemide, Hyzaar, magnesium oxide, Norvasc ALLERGIES: ALLOPURINOL, LISINOPRIL. FAMILY HISTORY: Family history of heart disease. 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 REVIEW OF SYSTEMS: As per HPI, all other ROS negative. PHYSICAL EXAMINATION: VITAL SIGNS: Blood pressure was noted to be 120/78, pulse 69, RR 26; sats 95 on room air. GENERAL: Noted to be comfortable, pleasant, no respiratory distress. eating dinner SKIN: Normal color. HEENT: Lott palpebral conjunctivae. Dry mucosa. NECK: No JVD. supple CHEST: Clear to auscultation. HEART: irreg, mechanical murmur ABDOMEN: Some distention, nontender. EXTREMITIES: No swelling, no tenderness. NEUROLOGIC: No gross focality. LABS: Hemoglobin was noted to be 14.2, hematocrit 41.7, white cell count 10.11, platelets 202. Sodium 137, potassium 3.5, chloride 99, CO2 30, BUN 41, creatinine 3, glucose 243. INR was noted to be 2.8. 04/27/2016, creatinine was 1.6 Hemoglobin A1c from March 2016 was 5.9. EKG, as per my interpretation, rate 65, Afib with PVCs. PRWP Urinalysis ketones, ASSESSMENT: 1. Acute renal failure on possible chronic renal insufficiency (?baseline crea of 1.6) secondary to medications, mild clinical dehydration 2. Atrial fibrillation. rate controlled, INR tx 3. History of mechanical mitral valve replacement on Coumadin. INR therapeutic. 4. Hypertension, stable. 5. hx CVA as per records 6. hx oropharyngeal CA sp chemoradiation (2003) 7. Choking sx for months possible esophageal dysfunction possibly 2 to adhesions from previous head and neck radiation as per outpx ENT eval 8. Hyperglycemia, secondary to recent outpatient IM steroid injection for bronchitis sx possible prediabetes w/ Hemoglobin A1c of 5.9 (03/2016). 9. hx BPH as per px PLAN: GMF Hold home diuretics, ARB for now monitor creatinine response to IV fluids. renal US, Nephro opinion if w/ worsening kidney function in AM Swallow evaluation. Check hemoglobin A1c. ISS BG goal 140-180. DVT prophylaxis, Coumadin, INR 2.5 to 3.5. (hx [facility] MVR) Full code. MTDD
[2016-08-13 06:43] LABS: INR 3.3 (0.9-1.1); PROTHROMBIN TIME (PATIENT) 36.8 SECONDS (9.0-12.0)
[2016-08-13 06:52] VITALS: BP 138/83; PULSE 73; TEMP 36.5; O2SAT 93
[2016-08-13 06:54] LABS: BASO % 0.1 %; BASO ABS # 0.01 K/uL (0-0.2); COMPLETE YES; EOS % 0.4 %; HEMATOCRIT 37.5 % (42-52); IG% 0.2 %; LYMPH % 7.9 %; LYMPH ABS # 0.64 K/uL (1.2-3.4); MEAN CELL VOLUME 90.8 fL (80-100); MEAN CORPUSCULAR HEMOGLOBIN 31.7 pg (25-34); MEAN CORPUSCULAR HGB CONC 34.9 g/dl (32-36); MONO % 8.4 %; PLATELET COUNT 186 K/uL (130-400); RED BLOOD COUNT 4.13 M/uL (4.7-6.1); WHITE BLOOD COUNT 8.09 K/uL (4.8-10.8)
[2016-08-13 06:55] LABS: ESTIMATED AVERAGE GLUCOSE 134 mg/dl; HA1C FLAG Normal (Normal)
[2016-08-13 07:13] LABS: BUN/CREATININE RATIO 18.7 (10-20); CALCIUM 8.3 mg/dl (8.5-10.1); CREATININE 2.1 mg/dl (0.60-1.40); POTASSIUM 3.9 mmol/L (3.5-5.1)
[2016-08-13] MEDS: AMLODIPINE BESYLATE 5 MG TAB PO SCH (07:41)
[2016-08-13] MEDS: FERROUS SULFATE 325 MG TAB PO SCH (07:41)
[2016-08-13] MEDS: ASPIRIN 81 MG ECTAB PO SCH (07:42)
[2016-08-13] MEDS: INSULIN ASPART 100 UNITS/ML 3 ML PEN SC SCH ×4 (07:43→21:00)
[2016-08-13 14:56] VITALS: BP 103/61; PULSE 66; TEMP 36.9; O2SAT 93
--- NOTE | 2016-08-13 20:05 | Progress Note ---
Medicine Progress Note Date & Time of Visit: Aug 13, 2016 at 15:20 . Subjective Admitted last night with acute kidney injury. Feels well today. No fever. No chest pain. Occasional cough. Seen by EXECUTIVE STAFF ASSISTANT. Video swallow recommended. No shortness of breath. No nausea, vomiting, diarrhea. No urinary symptoms. . Objective Last 8 Hrs Date Time Temp Pulse Resp B/P (MAP) Pulse Ox O2 Delivery O2 Flow Rate FiO2 08/13/16 16:00 Room Air 08/13/16 14:56 36.9 66 18 103/61 (75) 93 Room Air Physical Exam: General- no distress Neck- no JVD Lungs- clear Heart- irregular, no gallop appreciated Abdomen- normal bowel sounds, soft, nontender Extremities- trace pretibial edema with chronic venous stasis changes; no calf tenderness Neuro- alert, oriented . Laboratory Results: Last 24 Hours Test 08/12/16 21:47 08/13/16 06:03 08/13/16 07:24 08/13/16 11:17 Bedside Glucose 183 mg/dl 164 mg/dl 223 mg/dl White Blood Count 8.09 K/uL Red Blood Count 4.13 M/uL Hemoglobin 13.1 g/dL Hematocrit 37.5 % Mean Corpuscular Volume 90.8 fL Mean Corpuscular Hemoglobin 31.7 pg Mean Corpuscular Hemoglobin Concent 34.9 g/dl Platelet Count 186 K/uL Mean Platelet Volume 10.0 fL Neutrophils (%) (Auto) 83.0 % Lymphocytes (%) (Auto) 7.9 % Monocytes (%) (Auto) 8.4 % Eosinophils (%) (Auto) 0.4 % Basophils (%) (Auto) 0.1 % Neutrophils # (Auto) 6.71 K/uL Lymphocytes # (Auto) 0.64 K/uL Monocytes # (Auto) 0.68 K/uL Eosinophils # (Auto) 0.03 K/uL Basophils # (Auto) 0.01 K/uL RDW Standard Deviation 43.6 fL RDW Coefficient of Variation 13.2 % Immature Granulocyte % (Auto) 0.2 % Immature Granulocyte # (Auto) 0.02 K/uL Prothrombin Time 36.8 SECONDS Prothromb Time International Ratio 3.3 Sodium Level 141 mmol/L Potassium Level 3.9 mmol/L Chloride Level 104 mmol/L Carbon Dioxide Level 30 mmol/L Anion Gap 7.0 mmol/L Blood Urea Nitrogen 39 mg/dl Creatinine 2.10 mg/dl Est Creatinine Clear Calc Drug Dose 38.1 ml/min Estimated GFR () 34.2 Estimated GFR (Non- 29.5 BUN/Creatinine Ratio 18.7 Random Glucose 150 mg/dl Calcium Level 8.3 mg/dl Test 08/13/16 16:45 Bedside Glucose 141 mg/dl Assessment & Plan ACUTE KIDNEY INJURY Serum creatinine on admission 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 Creatinine today Continue IV fluids. CHRONIC ATRIAL FIBRILLATION Rate controlled. Continue warfarin. S/P MECHANICAL MVR Continue warfarin. HYPERTENSION Losartan on hold due to JENNY. Continue amlodipine. 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 Recent cough. No infiltrates on chest x-ray. Seen by EXECUTIVE STAFF ASSISTANT. Video fluoroscopy recommended. VTE PROPHYLAXIS On warfarin with therapeutic INR. DISPOSITION Expected discharge to home. Medical follow-up with Dr. Sherman. . Current Inpatient Medications: Current Inpatient Medications Medications (Trade) Dose Ordered Sig/Maryjane Route Start Time Stop Time Status Last Admin Dose Admin Acetaminophen (Tylenol Tab) 650 mg Q4H PRN PO 08/12/16 21:15 09/11/16 21:14 Insulin Aspart (novoLOG ASPART) SLIDING SCALE If C... ACHS SC 08/13/16 06:30 09/12/16 06:59 08/13/16 12:16 1 UNITS Glucose (Glucose 40% Gel) 15-30 GRAMS 15 GRAMS... UD PRN PO 08/12/16 21:15 09/11/16 21:14 Glucose (Glucose Chew Tab) 4-8 Tablets 4 Tabl... UD PRN PO 08/12/16 21:15 09/11/16 21:14 Dextrose (Dextrose 50% 50ML Syringe) 25-50ML OF 50% DW IV FOR... UD PRN IV 08/12/16 21:15 09/11/16 21:14 Glucagon (Glucagon Inj) 1 mg UD PRN SQ 08/12/16 21:15 09/11/16 21:14 Hydromorphone HCl (Dilaudid Inj) 0.5 mg Q3H PRN IV 08/12/16 21:15 08/26/16 21:14 Tramadol HCl (Ultram Tab) 25 mg Q6H PRN PO 08/12/16 21:15 09/11/16 21:14 08/12/16 22:33 25 MG Ondansetron HCl (Zofran Inj) 4 mg Q6H PRN IV 08/12/16 21:15 09/11/16 21:14 Albuterol/ Ipratropium (Duoneb) 3 ml Q2H PRN INH 08/12/16 21:15 09/11/16 21:14 Amlodipine Besylate (Norvasc Tab) 10 mg DAILY PO 08/13/16 09:00 09/12/16 08:59 08/13/16 07:41 10 MG Aspirin (Ecotrin Tab) 81 mg QAM PO 08/13/16 09:00 09/12/16 08:59 08/13/16 07:42 81 MG Ferrous Sulfate (Feosol Tab) 325 mg DAILY PO 08/13/16 09:00 09/12/16 08:59 08/13/16 07:41 325 MG Zolpidem Tartrate (Ambien Tab) 5 mg HS PRN PO 08/13/16 18:30 09/12/16 18:29 UNV
[2016-08-13] MEDS ORDERED: WARFARIN SOD 2.5 MG TAB PO STA (22:12)
[2016-08-13] MEDS: ZOLPIDEM TARTRATE 5 MG TAB PO PRN (22:41)
[2016-08-13 23:05] VITALS: BP 138/75; PULSE 73; TEMP 37.1; O2SAT 91
[2016-08-14 06:45] VITALS: BP 153/92; PULSE 72; TEMP 36.4; O2SAT 91
[2016-08-14 07:08] LABS: PROTHROMBIN TIME (PATIENT) 43.5 SECONDS (9.0-12.0)
[2016-08-14 07:29] LABS: BUN/CREATININE RATIO 20.3 (10-20); CALCIUM 8.3 mg/dl (8.5-10.1); CREATININE 1.6 mg/dl (0.60-1.40); INR 3.8 (0.9-1.1); POTASSIUM 3.9 mmol/L (3.5-5.1)
[2016-08-14] MEDS: INSULIN ASPART 100 UNITS/ML 3 ML PEN SC SCH ×4 (07:37→21:00)
[2016-08-14] MEDS: AMLODIPINE BESYLATE 5 MG TAB PO SCH (07:52)
[2016-08-14] MEDS: ASPIRIN 81 MG ECTAB PO SCH (07:52)
[2016-08-14] MEDS: FERROUS SULFATE 325 MG TAB PO SCH (07:52)
[2016-08-14 15:06] VITALS: BP 145/74; PULSE 64; TEMP 37.2; O2SAT 93
[2016-08-14] MEDS ORDERED: LOSARTAN POTASSIUM 50 MG TAB PO ONE (16:07)
--- NOTE | 2016-08-14 16:22 | Progress Note ---
Medicine Progress Note Date & Time of Visit: Aug 14, 2016 at 14:10 . Subjective No fever. Occasional cough, nonproductive. No SOB. No chest pain. No nausea, vomiting, diarrhea. No urinary symptoms. . Objective Last 8 Hrs Date Time Temp Pulse Resp B/P (MAP) Pulse Ox O2 Delivery O2 Flow Rate FiO2 08/14/16 15:40 Room Air 08/14/16 15:06 37.2 64 20 145/74 (97) 93 Room Air 08/14/16 09:00 Room Air Physical Exam: General- lying in bed, no distress Neck- no JVD Lungs- clear Heart- irregular, no gallop appreciated Abdomen- normal bowel sounds, soft, nontender Extremities- trace pretibial edema with chronic venous stasis changes; no calf tenderness Neuro- alert, oriented Skin- pigmented lesion left upper back measures 3-4 mm, pathologic vs eschar . Laboratory Results: Last 24 Hours Test 08/13/16 16:45 08/13/16 20:45 08/14/16 06:10 08/14/16 07:31 Bedside Glucose 141 mg/dl 167 mg/dl 134 mg/dl Prothrombin Time 43.5 SECONDS Prothromb Time International Ratio 3.8 Sodium Level 143 mmol/L Potassium Level 3.9 mmol/L Chloride Level 104 mmol/L Carbon Dioxide Level 32 mmol/L Anion Gap 7.0 mmol/L Blood Urea Nitrogen 33 mg/dl Creatinine 1.60 mg/dl Est Creatinine Clear Calc Drug Dose 50.0 ml/min Estimated GFR () 47.5 Estimated GFR (Non- 40.9 BUN/Creatinine Ratio 20.3 Random Glucose 136 mg/dl Calcium Level 8.3 mg/dl Test 08/14/16 11:31 Bedside Glucose 153 mg/dl Assessment & Plan ACUTE KIDNEY INJURY Baseline serum creatinine 1.2 in Nov 2015. Serum creatinine on admission was 3.0. 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 Creatinine today = 1.6. Continue IV fluids. CHRONIC ATRIAL FIBRILLATION Rate controlled. INR today = 3.8. Titrate warfarin. S/P MECHANICAL MVR INR goal 2.5 - 3.5. INR today = 3.8. Titrate warfarin. HYPERTENSION Losartan held due to JENNY. Resume losartan at 50 mg daily (without HCTZ). Continue amlodipine. 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 Recent cough. No infiltrates on chest x-ray. Seen by TROUT FARMER. Video fluoroscopy scheduled for tomorrow. SKIN LESION Lesion left upper back measuring 3-4 mm. ? eschar vs possible melanoma. F/U with PCP recommended. VTE PROPHYLAXIS On warfarin with therapeutic INR. DISPOSITION Expected discharge to home. Medical follow-up with Dr. Sherman. Cardiology follow-up with Dr. Milan. . Procedures: IV fluids TROUT FARMER eval . Current Inpatient Medications: Current Inpatient Medications Medications (Trade) Dose Ordered Sig/Maryjane Route Start Time Stop Time Status Last Admin Dose Admin Acetaminophen (Tylenol Tab) 650 mg Q4H PRN PO 08/12/16 21:15 09/11/16 21:14 Insulin Aspart (novoLOG ASPART) SLIDING SCALE If C... ACHS SC 08/13/16 06:30 09/12/16 06:59 08/13/16 12:16 1 UNITS Glucose (Glucose 40% Gel) 15-30 GRAMS 15 GRAMS... UD PRN PO 08/12/16 21:15 09/11/16 21:14 Glucose (Glucose Chew Tab) 4-8 Tablets 4 Tabl... UD PRN PO 08/12/16 21:15 09/11/16 21:14 Dextrose (Dextrose 50% 50ML Syringe) 25-50ML OF 50% DW IV FOR... UD PRN IV 08/12/16 21:15 09/11/16 21:14 Glucagon (Glucagon Inj) 1 mg UD PRN SQ 08/12/16 21:15 09/11/16 21:14 Hydromorphone HCl (Dilaudid Inj) 0.5 mg Q3H PRN IV 08/12/16 21:15 08/26/16 21:14 Tramadol HCl (Ultram Tab) 25 mg Q6H PRN PO 08/12/16 21:15 09/11/16 21:14 08/12/16 22:33 25 MG Ondansetron HCl (Zofran Inj) 4 mg Q6H PRN IV 08/12/16 21:15 09/11/16 21:14 Albuterol/ Ipratropium (Duoneb) 3 ml Q2H PRN INH 08/12/16 21:15 09/11/16 21:14 Amlodipine Besylate (Norvasc Tab) 10 mg DAILY PO 08/13/16 09:00 09/12/16 08:59 08/14/16 07:52 10 MG Aspirin (Ecotrin Tab) 81 mg QAM PO 08/13/16 09:00 09/12/16 08:59 08/14/16 07:52 81 MG Ferrous Sulfate (Feosol Tab) 325 mg DAILY PO 08/13/16 09:00 09/12/16 08:59 08/14/16 07:52 325 MG Zolpidem Tartrate (Ambien Tab) 5 mg HS PRN PO 08/13/16 18:30 09/12/16 18:29 08/13/16 22:41 5 MG
[2016-08-14] MEDS ORDERED: LACTATED RINGER'S 1000ML 1,000 ML IV SCH (16:30)
[2016-08-14 20:00] VITALS: O2SAT 93
[2016-08-14] MEDS: ZOLPIDEM TARTRATE 5 MG TAB PO PRN (21:02)
[2016-08-14 22:29] VITALS: BP 128/72; PULSE 73; TEMP 36.9; O2SAT 92
[2016-08-15 07:25] VITALS: BP 154/91; PULSE 42; TEMP 36.8; O2SAT 91
[2016-08-15 07:36] LABS: INR 3.8 (0.9-1.1); PROTHROMBIN TIME (PATIENT) 42.5 SECONDS (9.0-12.0)
[2016-08-15] MEDS: AMLODIPINE BESYLATE 5 MG TAB PO SCH (07:44)
[2016-08-15] MEDS: ASPIRIN 81 MG ECTAB PO SCH (07:44)
[2016-08-15] MEDS: FERROUS SULFATE 325 MG TAB PO SCH (07:44)
[2016-08-15] MEDS: INSULIN ASPART 100 UNITS/ML 3 ML PEN SC SCH ×2 (07:45→11:46)
[2016-08-15 07:48] LABS: BUN/CREATININE RATIO 18.2 (10-20); CALCIUM 8.7 mg/dl (8.5-10.1); CREATININE 1.4 mg/dl (0.60-1.40); POTASSIUM 3.8 mmol/L (3.5-5.1)
[2016-08-15 08:01] VITALS: PULSE 64
[2016-08-15] MEDS ORDERED: LOSARTAN POTASSIUM 50 MG TAB PO SCH (09:00)
--- NOTE | 2016-08-15 12:02 | DIAGNOSTIC IMAGING REPORT ---
VIDEO SWALLOW HISTORY: assess for aspiration, please schedule a time on 08/15/16 TECHNIQUE: Video fluoroscopic evaluation of swallowing was performed in the AP and lateral projections by the speech pathology staff. The patient is fed nectar-thick and thin liquid barium, a barium coated wafer, and barium pudding. FLUOROSCOPY TIME: 3.3 minutes. A cine loop submitted. COMPARISON STUDY: None. FINDINGS: Multiple episodes of deep penetration with the thin liquid barium and nectar thick liquid barium. There is an episode of trace silent aspiration during the swallows of thin liquid barium. Moderate vallecular residue with the thicker barium consistencies. Mild esophageal dysmotility. IMPRESSION: 1. Multiple episodes of deep penetration with a single episode of silent aspiration with the thin liquid barium. 2. Please see the speech pathologist report for detailed findings and recommendations. Electronically signed by: Mark Abdullahi M.D. 08/15/2016 12:01 PM Dictated Date/Time: 08/15/2016 11:57 AM
--- NOTE | 2016-08-15 13:24 | Progress Note ---
Medicine Progress Note Date & Time of Visit: Aug 15, 2016 at 13:24 . Subjective Feels well. No chest pain. Minimal nonproductive cough, no shortness of breath. No GI or symptoms. . Objective Last 8 Hrs Date Time Temp Pulse Resp B/P (MAP) Pulse Ox O2 Delivery O2 Flow Rate FiO2 08/15/16 09:00 Room Air 08/15/16 08:01 64 08/15/16 07:25 36.8 42 20 154/91 (112) 91 Physical Exam: General- no distress Neck- no JVD Lungs- clear Heart- irregular, no gallop appreciated Abdomen- normal bowel sounds, soft, nontender Extremities- trace pretibial edema with chronic venous stasis changes; no calf tenderness Neuro- alert, oriented Skin- pigmented lesion left upper back measures 3-4 mm, pigmented lesion vs eschar . Laboratory Results: Last 24 Hours Test 08/14/16 16:37 08/14/16 20:34 08/15/16 06:58 08/15/16 07:41 Bedside Glucose 132 mg/dl 158 mg/dl 135 mg/dl Prothrombin Time 42.5 SECONDS Prothromb Time International Ratio 3.8 Sodium Level 140 mmol/L Potassium Level 3.8 mmol/L Chloride Level 103 mmol/L Carbon Dioxide Level 30 mmol/L Anion Gap 7.0 mmol/L Blood Urea Nitrogen 26 mg/dl Creatinine 1.40 mg/dl Est Creatinine Clear Calc Drug Dose 57.2 ml/min Estimated GFR () 55.8 Estimated GFR (Non- 48.1 BUN/Creatinine Ratio 18.2 Random Glucose 147 mg/dl Calcium Level 8.7 mg/dl Test 08/15/16 11:02 Bedside Glucose 150 mg/dl Assessment & Plan ACUTE KIDNEY INJURY Baseline serum creatinine 1.2 in Nov 2015. Serum creatinine on admission was 3.0. 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 Creatinine today = 1.4. Discontinue hydrochlorothiazide (convert from losartan / HCTZ --> losartan). Follow labs. CHRONIC ATRIAL FIBRILLATION Rate controlled. INR today = 3.8. Hold warfarin today. Resume warfarin with a dose of 2.5 mg daily starting on 08/16. Subsequent management per [facility]. S/P MECHANICAL MVR INR goal 2.5 - 3.5. INR today = 3.8. Titrate warfarin as noted above. HYPERTENSION Losartan / HCTZ held due to JENNY. Discharge on losartan (without hydrochlorothiazide) 100 mg daily + amlodipine 10 mg daily. Following titrate therapy. 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 Recent cough. No infiltrates on chest x-ray. Seen by DIETARY AIDE TEACHER. Video fluoroscopy demonstrated an episode of aspiration with thin barium. DIETARY AIDE TEACHER recommended moist diet with thin liquids and aspiration precautions. Outpatient DIETARY AIDE TEACHER therapy recommended. Patient not interested in outpatient therapy at this time, but will request referral has ongoing difficulties. SKIN LESION Lesion left upper back measuring 3-4 mm. ? eschar vs possible melanoma. F/U with PCP recommended. VTE PROPHYLAXIS On warfarin with therapeutic INR. DISPOSITION Discharge to home. Medical follow-up with Dr. Sherman. Cardiology follow-up with Dr. Milan. . Procedures: IV fluids DIETARY AIDE TEACHER eval . Current Inpatient Medications: Current Inpatient Medications Medications (Trade) Dose Ordered Sig/Maryjane Route Start Time Stop Time Status Last Admin Dose Admin Acetaminophen (Tylenol Tab) 650 mg Q4H PRN PO 08/12/16 21:15 09/11/16 21:14 Insulin Aspart (novoLOG ASPART) SLIDING SCALE If C... ACHS SC 08/13/16 06:30 09/12/16 06:59 08/13/16 12:16 1 UNITS Glucose (Glucose 40% Gel) 15-30 GRAMS 15 GRAMS... UD PRN PO 08/12/16 21:15 09/11/16 21:14 Glucose (Glucose Chew Tab) 4-8 Tablets 4 Tabl... UD PRN PO 08/12/16 21:15 09/11/16 21:14 Dextrose (Dextrose 50% 50ML Syringe) 25-50ML OF 50% DW IV FOR... UD PRN IV 08/12/16 21:15 09/11/16 21:14 Glucagon (Glucagon Inj) 1 mg UD PRN SQ 08/12/16 21:15 09/11/16 21:14 Hydromorphone HCl (Dilaudid Inj) 0.5 mg Q3H PRN IV 08/12/16 21:15 08/26/16 21:14 Tramadol HCl (Ultram Tab) 25 mg Q6H PRN PO 08/12/16 21:15 09/11/16 21:14 08/12/16 22:33 25 MG Ondansetron HCl (Zofran Inj) 4 mg Q6H PRN IV 08/12/16 21:15 09/11/16 21:14 Albuterol/ Ipratropium (Duoneb) 3 ml Q2H PRN INH 08/12/16 21:15 09/11/16 21:14 Amlodipine Besylate (Norvasc Tab) 10 mg DAILY PO 08/13/16 09:00 09/12/16 08:59 08/15/16 07:44 10 MG Aspirin (Ecotrin Tab) 81 mg QAM PO 08/13/16 09:00 09/12/16 08:59 08/15/16 07:44 81 MG Ferrous Sulfate (Feosol Tab) 325 mg DAILY PO 08/13/16 09:00 09/12/16 08:59 08/15/16 07:44 325 MG Zolpidem Tartrate (Ambien Tab) 5 mg HS PRN PO 08/13/16 18:30 09/12/16 18:29 08/14/16 21:02 5 MG Losartan Potassium (coZAAR TAB) 50 mg DAILY PO 08/15/16 09:00 09/14/16 08:59 08/15/16 07:43 50 MG
[2016-08-15] MEDS ORDERED: LOSA100T65 PO ×2 (13:27→14:13)
[2016-08-15 14:02] VITALS: BP 154/91; PULSE 64; TEMP 36.8; O2SAT 91
--- NOTE | 2016-08-15 14:19 | Discharge Instructions ---
Discharge Instructions Date of Service Aug 15, 2016. Admission Reason for Admission: worsening kidney function . Discharge Discharge Diagnosis / Problem: worsening kidney function, probably from dehydration Discharge Goals Goal(s): Improve disease control Activity Recommendations Activity Limitations: resume your previous activity . Instructions / Follow-Up Instructions / Follow-Up APPOINTMENTS: [facility] Dr. Sherman. Please call his office for appointment within 1 week. Please ask them to recheck your kidney function tests. CARDIOLOGY Dr. Milan as scheduled. INSTRUCTIONS: Your kidney function was worse than usual, probably because of dehydration. It improved with extra fluids. We are changing your heart / blood pressure medications: STOP losartan / hydrochlorothiazide (Hyzaar) start losartan 100 mg daily. Your INR was running high- 3.8 on 08/14 and 3.8 on 08/15. No warfarin (Coumadin) on 08/15. Restart warfarin on Wednesday 08/16 at 2.5 mg daily. Anticoagulation clinic will contact you with instructions. You are having some trouble swallowing. Please follow instructions from Porfirio the speech therapist. If you continue to have problems, please see Porfirio or a speech therapist closer to home. You have a dark spot on your back, near your left shoulder blade. Please have Dr. Sherman or his associates check it. Seek medical attention if you have: * temperature above 101 * chest pain or trouble breathing * abdominal pain, nausea, vomiting * diarrhea, dark stools or bloody stools * any unanswered questions or concerns Call 911 if symptoms are severe. Call if you have any questions or problems. My cell # is [phone]. You can also reach a [facility] hospitalist on duty at [facility] 24 hours a day by calling [phone]. Please take good care of yourself. Shaen Garzon . Current Hospital Diet Patient's current hospital diet: Diabetes Type 2 Diet, AHA Diet (Heart Healthy) Discharge Diet Recommended Diet: AHA Diet (Heart Healthy) Pending Studies Studies pending at discharge: no Laboratory Results Hemoglobin A1c Test 08/12/16 17:45 Range/Units Estimated Average Glucose 134 mg/dl Hemoglobin A1c 6.3 H 4.5-5.6 % Lipid Panel Test 08/12/16 08:30 Range/Units Triglycerides Level 85 0-150 mg/dl Cholesterol Level 162 0-200 mg/dl HDL Cholesterol 64 mg/dl Cholesterol/HDL Ratio 2.5 LDL Cholesterol, Calculated 81 mg/dl Medical Emergencies . Who to Call and When: Medical Emergencies: If at any time you feel your situation is an emergency, please call 911 immediately. . Non-Emergent Contact Non-Emergency issues call your: Primary Care Provider, Pharmacy Services Representative, Hospital Doctor . . "Provider Documentation" section prepared by Shane Garzon. . VTE Core Measure Inpt VTE Proph given/why not?: Warfarin (Coumadin)
--- NOTE | 2016-08-15 21:50 | Discharge Summary ---
Discharge Summary Date of Service Aug 15, 2016. Discharge Summary Admission Date: Aug 12, 2016 at 20:31 Discharge Date: Aug 15, 2016 Discharge Disposition: Home Principal Diagnosis: acute kidney injury . 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 One 6 mm, recently bleeding polyp in the ascending colon. Treated with bipolar cautery. An actively bleeding ulcer at presumed polypectomy site in the ascending colon. Hemostasis established with epinephrine injection, bipolar coagulation, and placement of clips. An ulcer at presumed polypectomy site in the transverse colon. Clot removed and clips (MR conditional) were placed. Diverticulosis in the sigmoid colon. Blood in the entire examined colon. No specimens collected." Colonoscopy [facility] [place] 01/18/16- "7 mm cecal polyp s/p cold snare and clip closure. Post polypectomy ulcer with pigmented protuberance and residual polyp s/p cold snaring of residual polyp and clip closure. Post polypectomy ulcer with adherent clot s/p injection of dilute epinephrine, snare removal of clot revealing visible vessel, snare removal of misplaced clips and complete closure with hemostatic clip. 3 mm polyp in the transverse colon s/p cold snare. Internal hemorrhoids. 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; s/p chordal rupture Status: Chronic (3) History of dental surgery Status: Chronic (4) History of mandibular surgery Status: Chronic (5) S/P cholecystectomy Status: Chronic (6) S/P ERCP . Procedures: IV fluids ROUTER MACHINE OPERATOR eval videofluoroscopy . Pending Studies/Follow-Up: Please monitor basic metabolic profile in clinic. Please do skin survey in clinic- recheck ? pigmented lesion left upper back. . Medication Reconciliation New Medications: Losartan Potassium (Cozaar) 100 Mg Tab 100 MG PO DAILY, #30 TAB 5 Refills Continued Medications: Amlodipine (Norvasc) 10 Mg Tab 10 MG PO DAILY for 30 Days, #30 TAB 2 Refills Aspirin (Aspirin EC Low Dose) 81 Mg Ectab 81 MG PO QAM for 30 Days, #30 TAB 2 Refills Cyanocobalamin (B-12) 1,000 Mcg Tab 1000 MCG PO DAILY Ferrous Sulfate (Ferrous Sulfate) 325 Mg Tab 325 MG PO DAILY Furosemide (Furosemide) 20 Mg Tab 20 MG PO DAILY PRN for weight gain or edema Magnesium Oxide (Mg Supplement (Magnesium Oxide) 400 Mg Tab 400 MG PO DAILY Potassium Chloride (K-Tab) 20 Meq Tab 20 MEQ PO UD PRN for with furosemide Warfarin Sod (Jantoven) 5 Mg Tab 0 PO UD as directed by [facility] Discontinued Medications: Losartan Potassium & Hydrochlo (Hyzaar) 1 Tab Tab 1 TAB PO DAILY 100/25 Admission Information HPI (per Admitting provider): Medical history significant for Afib, history of mechanical MVR on Coumadin, Hx CVA. hypertension, history of tongue/tonsillar cancer, status post chemoradiation, history of colonic polyps, hx BPH as per px. Recent confinement, last March 2016, for an acute stroke of the right midbrain. Patient was seen at PCP's office yesterday for 3 days' history of cough symptoms, initially junky. Patient has been dealing with choking symptoms at home the last several months. Seen by a local ENT provider. Endoscopy showed "possible adhesions from radiation" as per px. At the PCP's office, the patient received a shot of steroids for bronchitis. Cough subsequently dried out. PX sent to [facility] for labs and CXR. Outpatient chest x-ray, mild cardiomegaly. outpatient creatinine noted to be 2.8. Appetite well as per px. He denies intake of NSAIDs or recent change in medications. Denies active bladder or urinary issues. Patient sent to the Emergency Room by PCP for further eval. . Physical Exam (per Admitting): VITAL SIGNS: Blood pressure was noted to be 120/78, pulse 69, RR 26; sats 95 on room air. GENERAL: Noted to be comfortable, pleasant, no respiratory distress. eating dinner SKIN: Normal color. HEENT: [place] palpebral conjunctivae. Dry mucosa. NECK: No JVD. supple CHEST: Clear to auscultation. HEART: irreg, mechanical murmur ABDOMEN: Some distention, nontender. EXTREMITIES: No swelling, no tenderness. NEUROLOGIC: No gross focality. . Hospital Course ACUTE KIDNEY INJURY Baseline serum creatinine 1.2 in Nov 2015. Serum creatinine on admission was 3.0. Probably CKD with superimposed JENNY from dehydration. Diuretics held. Received IV fluids. Creatinine day of discharge was 1.4. Discontinue hydrochlorothiazide (convert from losartan / HCTZ --> losartan). Follow labs. CHRONIC ATRIAL FIBRILLATION Rate controlled. INR the of discharge was 3.8. Hold warfarin today. Resume warfarin with a dose of 2.5 mg daily starting on 08/16. Subsequent management per [facility]. S/P MECHANICAL MVR INR goal 2.5 - 3.5. Titrate warfarin as noted above. HYPERTENSION Losartan / HCTZ held due to JENNY. Discharge on losartan (without hydrochlorothiazide) 100 mg daily + amlodipine 10 mg daily. Following titrate therapy. 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 Recent cough. No infiltrates on chest x-ray. Seen by ROUTER MACHINE OPERATOR. Video fluoroscopy demonstrated an episode of aspiration with thin barium. ROUTER MACHINE OPERATOR recommended moist diet with thin liquids and aspiration precautions. Outpatient ROUTER MACHINE OPERATOR therapy recommended- patient not interested at this time, but will request referral if he has ongoing difficulties. SKIN LESION Lesion left upper back measuring 3-4 mm. ? eschar vs possible pigmented lesion. F/U with PCP recommended. VTE PROPHYLAXIS On warfarin with therapeutic INR. DISPOSITION Discharged to home. Medical follow-up with Dr. Sherman. Cardiology follow-up with Dr. Milan. . Total time spent on discharge = 40 minutes. This includes examination of the patient, discharge planning, medication reconciliation, and communication with other providers. . Discharge Instructions Date of Service Aug 15, 2016. Admission Reason for Admission: worsening kidney function . Discharge Discharge Diagnosis / Problem: worsening kidney function, probably from dehydration Discharge Goals Goal(s): Improve disease control Activity Recommendations Activity Limitations: resume your previous activity . Instructions / Follow-Up Instructions / Follow-Up APPOINTMENTS: FAMILY MEDICINE Dr. Sherman. Please call his office for appointment within 1 week. Please ask them to recheck your kidney function tests. CARDIOLOGY Dr. Milan as scheduled. INSTRUCTIONS: Your kidney function was worse than usual, probably because of dehydration. It improved with extra fluids. We are changing your heart / blood pressure medications: STOP losartan / hydrochlorothiazide (Hyzaar) start losartan 100 mg daily. Your INR was running high- 3.8 on 08/14 and 3.8 on 08/15. No warfarin (Coumadin) on 08/15. Restart warfarin on Wednesday 08/16 at 2.5 mg daily. Anticoagulation clinic will contact you with instructions. You are having some trouble swallowing. Please follow instructions from Porfirio the speech therapist. If you continue to have problems, please see Porfirio or a speech therapist closer to home. You have a dark spot on your back, near your left shoulder blade. Please have Dr. Sherman or his associates check it. Seek medical attention if you have: * temperature above 101 * chest pain or trouble breathing * abdominal pain, nausea, vomiting * diarrhea, dark stools or bloody stools * any unanswered questions or concerns Call 911 if symptoms are severe. Call if you have any questions or problems. My cell # is [phone]. You can also reach a [facility] hospitalist on duty at [facility] 24 hours a day by calling [phone]. Please take good care of yourself. Shane Garzon . Current Hospital Diet Patient's current hospital diet: Diabetes Type 2 Diet, AHA Diet (Heart Healthy) Discharge Diet Recommended Diet: AHA Diet (Heart Healthy) Pending Studies Studies pending at discharge: no Laboratory Results Hemoglobin A1c Test 08/12/16 17:45 Range/Units Estimated Average Glucose 134 mg/dl Hemoglobin A1c 6.3 H 4.5-5.6 % Lipid Panel Test 08/12/16 08:30 Range/Units Triglycerides Level 85 0-150 mg/dl Cholesterol Level 162 0-200 mg/dl HDL Cholesterol 64 mg/dl Cholesterol/HDL Ratio 2.5 LDL Cholesterol, Calculated 81 mg/dl Medical Emergencies . Who to Call and When: Medical Emergencies: If at any time you feel your situation is an emergency, please call 911 immediately. . Non-Emergent Contact Non-Emergency issues call your: Primary Care Provider, [employer], Hospital Doctor . . "Provider Documentation" section prepared by Shane Garzon. . VTE Core Measure Inpt VTE Proph given/why not?: Warfarin (Coumadin) . Additional Copies To Joe Sherman M.D.; Adryan Milan M.D.
[2016-10-20] MEDS ORDERED: CYAN1TAB18 PO (10:25)
[2016-10-20] MEDS ORDERED: LSX20 PO (19:12)
[2016-10-20] MEDS ORDERED: POTA1TAB97 PO (19:12)
[2017-01-25] MEDS ORDERED: LOSA1TAB PO (10:58)
[2017-01-25] MEDS ORDERED: CYAN100T6 PO (10:58)
[2017-01-25] MEDS ORDERED: BP MED PO (11:01)
[2017-01-25] MEDS ORDERED: VERA120T15 PO (11:47)
[2017-01-25] MEDS ORDERED: LOSA1TAB38 PO (11:47)
[2017-01-26] MEDS ORDERED: CYCL10TA6 PO (12:41)
== END 2016-08-15 14:53 | disposition home or self-care (01) | DRG 684 ==
LOC: C.EDB 16:33 → C.MED 20:31 → ENRESERV 20:50
PROVIDERS: ADMIT Hospitalist; ATTEND Hospitalist
DX: N17.9 Acute kidney failure, unspecified (principal); I48.2 Chronic atrial fibrillation; I10 Essential (primary) hypertension; N40.0 Benign prostatic hyperplasia without lower urinary tract symptoms; R73.9 Hyperglycemia, unspecified; E86.0 Dehydration; Z79.899 Other long term (current) drug therapy; Z86.73 Personal history of transient ischemic attack (TIA), and cerebral infarction without residual deficits; Z95.2 Presence of prosthetic heart valve; Z79.01 Long term (current) use of anticoagulants; Z90.49 Acquired absence of other specified parts of digestive tract; Z88.8 Allergy status to other drugs, medicaments and biological substances; Z85.810 Personal history of malignant neoplasm of tongue; R05 Cough; I25.10 Atherosclerotic heart disease of native coronary artery without angina pectoris; N20.0 Calculus of kidney; D50.9 Iron deficiency anemia, unspecified; E11.9 Type 2 diabetes mellitus without complications; E78.00 Pure hypercholesterolemia, unspecified

== ENCOUNTER → 2016-08-12 | Outpatient (CLI) | payer OTHER, BC ==
[~2016-08-12] MED LIST changes: +ALPR-385 PO; +ASPI81CH2 PO; +BP MED PO; -CMD4 PO; -CYAN100073 PO; +CYAN100T6 PO; +CYAN1TAB18 PO; +CYCL10TA6 PO; +FERR325T5 PO; -FERR50TA3 PO; +HYZ/10015 PO; +LOSA100T2 PO; -LOSA100T26 PO; +LOSA100T65 PO; +LOSA1TAB PO; +LOSA1TAB38 PO; +LSX20 PO; +MAGN1TAB19 PO; -MAGN400T5 PO; -MBXC PO; +MGCS/ PO; +POTA1TAB97 PO; +TEMA15CA4 PO; +VERA120T15 PO; +WARF-246 PO; +WARF5TAB7 PO; +WARF5TAB90 PO
--- NOTE | 2016-08-12 08:58 | DIAGNOSTIC IMAGING REPORT ---
CHEST 2 VIEWS ROUTINE CLINICAL HISTORY: R05 DIFFICULTY BREATHING COMPARISON STUDY: 04/27/2016 FINDINGS: The heart remains mildly enlarged. There are postsurgical changes of midline sternotomy. There is no failure. There is no focal pulmonary consolidation. No pleural effusions are visualized. There is a prominent left cardiophrenic angle fat pad.[ IMPRESSION: Mild cardiomegaly. No acute findings. Electronically signed by: Usama Spencer M.D. 08/12/2016 8:57 AM Dictated Date/Time: 08/12/2016 8:56 AM
[2016-08-12 09:40] LABS: HEMATOCRIT 43.5 % (42-52); MEAN CELL VOLUME 91.2 fL (80-100); MEAN CORPUSCULAR HEMOGLOBIN 29.1 pg (25-34); MEAN PLATELET VOLUME 10.2 fL (7.4-10.4); PLATELET COUNT 200 K/uL (130-400); RED BLOOD COUNT 4.77 M/uL (4.7-6.1)
[2016-08-12 09:46] LABS: ALT/SGPT 19 U/L (12-78); BLOOD UREA NITROGEN 37 mg/dl (7-18); CARBON DIOXIDE 31 mmol/L (21-32); CHLORIDE 98 mmol/L (98-107); CHOLESTEROL 162 mg/dl (0-200); GLUCOSE 217 mg/dl (70-99); POTASSIUM 3.4 mmol/L (3.5-5.1); SODIUM 138 mmol/L (136-145); TRIGLYCERIDES 85 mg/dl (0-150); VERY LOW DENSITY LIPOPROT CALC 17 mg/dl
[2016-08-12 09:49] LABS: ALB/GLOB RATIO 0.9 (0.9-2); ALKALINE PHOSPHATASE 113 U/L (45-117); AST/SGOT 13 U/L (15-37); C-REACTIVE PROTEIN 5.97 mg/dl (0-0.29); CHOLESTEROL/HDL RATIO 2.5; HDL CHOLESTEROL 64 mg/dl; LDL CHOLESTEROL CALCULATED 81 mg/dl
[2016-08-12 09:53] LABS: CALCIUM 9.3 mg/dl (8.5-10.1)
== END | disposition home or self-care (01) ==
LOC: C.RAD 08:24
PROVIDERS: ATTEND Nurse Practitioner
DX: R05 Cough (principal); I25.10 Atherosclerotic heart disease of native coronary artery without angina pectoris; N20.0 Calculus of kidney; D50.9 Iron deficiency anemia, unspecified; I10 Essential (primary) hypertension; E11.9 Type 2 diabetes mellitus without complications; E78.00 Pure hypercholesterolemia, unspecified

== ENCOUNTER 2016-10-20 19:51 | Emergency (ER) | payer OTHER, BC ==
[~2016-10-20] VITALS: Ht 182.9 cm; Wt 117.6 kg
[~2016-10-20 19:51] MED LIST changes: +CYAN1TAB18 PO; -LOSA100T2 PO; +LOSA100T65 PO; +LSX20 PO; +POTA1TAB97 PO
[2016-10-20 20:02] VITALS: TEMP 36.9; Ht 182.9 cm; Wt 117.6 kg
[2016-10-20 20:06] VITALS: O2SAT 94
[2016-10-20 20:34] LABS: BASO % 0.5 %; BASO ABS # 0.03 K/uL (0-0.2); COMPLETE YES; EOS % 1.6 %; HEMATOCRIT 42.5 % (42-52); IG% 0.2 %; LYMPH % 16.6 %; LYMPH ABS # 0.94 K/uL (1.2-3.4); MEAN CORPUSCULAR HEMOGLOBIN 30.6 pg (25-34); MEAN CORPUSCULAR HGB CONC 33.6 g/dl (32-36); MEAN PLATELET VOLUME 10.4 fL (7.4-10.4); MONO % 10.6 %; NEUT % 70.5 %; PLATELET COUNT 141 K/uL (130-400); RED BLOOD COUNT 4.67 M/uL (4.7-6.1); WHITE BLOOD COUNT 5.65 K/uL (4.8-10.8)
[2016-10-20 20:48] LABS: INR 1.1 (0.9-1.1); PARTIAL THROMBOPLASTIN RATIO 1.1; PROTHROMBIN TIME (PATIENT) 11.4 SECONDS (9.0-12.0)
[2016-10-20 20:50] LABS: BUN/CREATININE RATIO 15.2 (10-20); CALCIUM 9.1 mg/dl (8.5-10.1); CREATININE 1.4 mg/dl (0.60-1.40); MAGNESIUM 2.4 mg/dl (1.8-2.4); POTASSIUM 3.5 mmol/L (3.5-5.1)
[2016-10-20 20:59] LABS: CKMB/CK RATIO 2.1 (0-3.0); THYROID STIMULATING HORMONE 3.34 uIu/ml (0.300-4.500)
--- NOTE | 2016-10-20 21:00 | DIAGNOSTIC IMAGING REPORT ---
CHEST ONE VIEW PORTABLE CLINICAL HISTORY: 76 years-old Male presenting with EVALUATE ALTERED MENTAL STATUS/WEAKNESS. TECHNIQUE: Portable upright AP view of the chest was obtained. COMPARISON: 08/12/2016. FINDINGS: Median sternotomy wires again noted. Atherosclerosis of the aortic arch. Enlargement of the cardiac silhouette unchanged. Lungs and pleural spaces clear. Osseous structures normal. Upper abdomen normal. IMPRESSION: 1. Cardiomegaly. No other evidence of acute cardiopulmonary disease. Electronically signed by: Tigre Lynn M.D. 10/20/2016 8:59 PM Dictated Date/Time: 10/20/2016 8:58 PM
[2016-10-20] MEDS ORDERED: ALPR-385 PO (21:25)
[2016-10-20] MEDS ORDERED: WARF5TAB90 PO ×2 (21:25)
[2016-10-20] MEDS ORDERED: MGCS/ PO (21:29)
[2016-10-20] MEDS ORDERED: ASPI81CH2 PO (21:29)
[2016-10-20] MEDS ORDERED: TEMA15CA4 PO (21:29)
[2016-10-20] MEDS ORDERED: HYZ/10015 PO (21:29)
--- NOTE | 2016-10-20 21:39 | DIAGNOSTIC IMAGING REPORT ---
HEAD WITHOUT CONTRAST (CT) CLINICAL HISTORY: 76 years-old Male presenting with EVALUATE ALTERED MENTAL STATUS/WEAKNESS. TECHNIQUE: Multidetector CT imaging of the head was performed without the use of intravenous contrast. IV contrast: None. A dose lowering technique was used consistent with the principles of ALARA (as low as reasonably achievable). COMPARISON: 04/04/2016. CT DOSE (mGy.cm): The estimated cumulative dose is 720.95 mGycm. FINDINGS: Security Orderly topogram: Unremarkable. Ventricles and sulci normal in size. Multiple old infarcts noted in the bilateral cerebellar hemispheres, right occipital lobe, and old lacunar infarcts in the bilateral thalami. No mass effect or midline shift. No hemorrhage or acute territorial infarct. No extra-axial fluid collection. Paranasal sinuses and mastoid air cells clear. Calvarium intact. IMPRESSION: 1. No acute intracranial pathology. 2. Old infarcts in the bilateral cerebellar hemispheres, occipital lobe, and bilateral thalami. This is unchanged from prior. Electronically signed by: Tigre Lynn M.D. 10/20/2016 9:38 PM Dictated Date/Time: 10/20/2016 9:34 PM
[2016-10-20] MEDS ORDERED: WARFARIN SOD 5 MG TAB PO ONE (23:15)
[2016-10-20] MEDS ORDERED: ENOXAPARIN 80 MG/0.8 ML SYR SQ STA (23:16)
[2016-10-20 23:33] VITALS: BP 124/84; PULSE 77; O2SAT 98
--- NOTE | 2016-10-20 23:37 | EMERGENCY ROOM VISIT NOTE ---
History Report prepared by Kimberlyn: Kristen Garces Under the Supervision of: Dr. Matteo Box D.O. First contact with patient: 20:01 Chief Complaint: STROKE SYMPTOMS Stated Complaint: SLURRED SPEECH Nursing Triage Summary: pt arrived als from home reported 1800 pt started took a nap and then woke to slur words pt states he has had tias in the past History of Present Illness The patient is a 76 year old male who presents to the Emergency Room with complaints of persistent slurred speech starting 1830 today. The patient was waiting in his car for his grandson to finish football practice. He fell asleep and woke up from his nap around 1830 and found that his speech was slurred. He was brought to the ED by EMS. He did not have any weakness. His speech is currently improved, but still slurred. He has a history of TIA. He has a mitral valve replacement and is on Warfarin. He states that his INR should be around 2.5-3.5. Source of History: patient Onset: 1829 Position: other (global) Quality: other (speech slur) Timing: other (persistent) Associated Symptoms: No weakness Review of Systems See HPI for pertinent positives & negatives. A total of 10 systems reviewed and were otherwise negative. Past Medical & Surgical Medical Problems: (1) Anticoagulated on warfarin (2) Atrial Fibrillation (3) Cerebrovascular disease (4) Chronic pulmonary aspiration (5) History of lower GI bleeding (6) History of oral cancer (7) Hypertension (8) Hypertension Nos (9) Tinnitus Nos Surgical Problems: (1) H/O colonoscopy (2) H/O mitral valve replacement with mechanical valve (3) History of dental surgery (4) History of mandibular surgery (5) S/P cholecystectomy (6) S/P ERCP Family History Diabetes mellitus SISTER Heart disease Social History Smoking Status: Never Smoker Alcohol Use: none Drug Use: none Marital Status: Housing Status: lives with family Occupation Status: retired Current/Historical Medications Scheduled Alprazolam (Xanax), 1-2 TABS PO HS Aspirin (Aspirin), 1 TAB PO DAILY Cyanocobalamin (B-12), 1,000 MCG PO DAILY Hctz/Losartan (Hyzaar 25MG/100MG), 1 TAB PO BID Maalox/Diphen/Visc. Yayo/Glyc (Magic Swizzle), 15-30 ML PO PRN Warfarin Sodium (Coumadin), 5 MG PO MWF Warfarin Sodium (Coumadin), 2.5 MG PO [id number] Scheduled PRN Furosemide (Furosemide), 20 MG PO DAILY PRN for weight gain or edema Potassium Chloride (K-Tab), 20 MEQ PO UD PRN for with furosemide Temazepam (Restoril), 7.5 MG PO HS PRN for Shortness of Breath Allergies Coded Allergies: Allopurinol (Unverified Allergy, Unknown, unknown, 08/12/16) Lisinopril (Verified Adverse Reaction, Unknown, COUGH, 08/12/16) Physical Exam Vital Signs Date Time Temp Pulse Resp B/P (MAP) Pulse Ox O2 Delivery O2 Flow Rate FiO2 10/20/16 22:31 141/83 10/20/16 22:21 62 18 93 10/20/16 22:01 140/90 10/20/16 21:51 55 25 92 10/20/16 21:31 181/96 10/20/16 20:51 58 18 94 10/20/16 20:49 59 22 172/101 94 Room Air 10/20/16 20:49 172/101 10/20/16 20:21 62 23 92 10/20/16 20:14 68 10/20/16 20:06 94 Room Air 10/20/16 20:03 177/106 10/20/16 20:02 36.9 65 18 177/106 95 Room Air Physical Exam VITAL SIGNS: were reviewed as above. GENERAL:Non-toxic in appearance. SKIN: Warm dry and pink. HEAD: Normocephalic and atraumatic. OROPHARYNX: Is clear and moist NECK: Supple without lymphadenopathy or meningismus. LUNGS: clear. HEART: Regular rate and rhythm. ABDOMEN: Soft and nontender. EXTREMITIES: Warm and well perfused. NEUROLOGICALLY: Awake alert and oriented without focal deficit. Cranial nerves 2 -12 are intact. There is no pronator drift. Cerebellar testing is within normal limits. There is no nystagmus. There is no facial droop. No slurring of speech is appreciated on exam. Vision is grossly normal. MUSCULOSKELETAL: Good muscle tone. No evidence of trauma. Medical Decision & Procedures ER Provider Diagnostic Interpretation: X ray results and stated below per my interpretation and radiology interpretation. Radiology results as stated below per my review and radiologist interpretation: CHEST ONE VIEW PORTABLE CLINICAL HISTORY: 76 years-old Male presenting with EVALUATE ALTERED MENTAL STATUS/WEAKNESS. TECHNIQUE: Portable upright AP view of the chest was obtained. COMPARISON: 08/12/2016. FINDINGS: Median sternotomy wires again noted. Atherosclerosis of the aortic arch. Enlargement of the cardiac silhouette unchanged. Lungs and pleural spaces clear. Osseous structures normal. Upper abdomen normal. IMPRESSION: 1. Cardiomegaly. No other evidence of acute cardiopulmonary disease. Electronically signed by: Tigre Lynn M.D. 10/20/2016 8:59 PM Dictated Date/Time: 10/20/2016 8:58 PM HEAD WITHOUT CONTRAST (CT) CLINICAL HISTORY: 76 years-old Male presenting with EVALUATE ALTERED MENTAL STATUS/WEAKNESS. TECHNIQUE: Multidetector CT imaging of the head was performed without the use of intravenous contrast. IV contrast: None. A dose lowering technique was used consistent with the principles of ALARA (as low as reasonably achievable). COMPARISON: 04/04/2016. CT DOSE (mGy.cm): The estimated cumulative dose is 720.95 mGycm. FINDINGS: Veterinary Assistant topogram: Unremarkable. Ventricles and sulci normal in size. Multiple old infarcts noted in the bilateral cerebellar hemispheres, right occipital lobe, and old lacunar infarcts in the bilateral thalami. No mass effect or midline shift. No hemorrhage or acute territorial infarct. No extra-axial fluid collection. Paranasal sinuses and mastoid air cells clear. Calvarium intact. IMPRESSION: 1. No acute intracranial pathology. 2. Old infarcts in the bilateral cerebellar hemispheres, occipital lobe, and bilateral thalami. This is unchanged from prior. Electronically signed by: Tigre Lynn M.D. 10/20/2016 9:38 PM Dictated Date/Time: 10/20/2016 9:34 PM Laboratory Results 10/20/16 19:30 Red Blood Count 4.67, Mean Corpuscular Volume 91.0, Mean Corpuscular Hemoglobin 30.6, Mean Corpuscular Hemoglobin Concent 33.6, Mean Platelet Volume 10.4, Neutrophils (%) (Auto) 70.5, Lymphocytes (%) (Auto) 16.6, Monocytes (%) (Auto) 10.6, Eosinophils (%) (Auto) 1.6, Basophils (%) (Auto) 0.5, Neutrophils # (Auto ) 3.98, Lymphocytes # (Auto) 0.94, Monocytes # (Auto) 0.60, Eosinophils # (Auto ) 0.09, Basophils # (Auto) 0.03 10/20/16 19:30 Test 10/20/16 19:30 10/20/16 20:04 White Blood Count 5.65 K/uL (4.8-10.8) Red Blood Count 4.67 M/uL (4.7-6.1) Hemoglobin 14.3 g/dL (14.0-18.0) Hematocrit 42.5 % (42-52) Mean Corpuscular Volume 91.0 fL (80-100) Mean Corpuscular Hemoglobin 30.6 pg (25-34) Mean Corpuscular Hemoglobin Concent 33.6 g/dl (32-36) Platelet Count 141 K/uL (130-400) Mean Platelet Volume 10.4 fL (7.4-10.4) Neutrophils (%) (Auto) 70.5 % Lymphocytes (%) (Auto) 16.6 % Monocytes (%) (Auto) 10.6 % Eosinophils (%) (Auto) 1.6 % Basophils (%) (Auto) 0.5 % Neutrophils # (Auto) 3.98 K/uL (1.4-6.5) Lymphocytes # (Auto) 0.94 K/uL (1.2-3.4) Monocytes # (Auto) 0.60 K/uL (0.11-0.59) Eosinophils # (Auto) 0.09 K/uL (0-0.5) Basophils # (Auto) 0.03 K/uL (0-0.2) RDW Standard Deviation 43.5 fL (36.4-46.3) RDW Coefficient of Variation 13.2 % (11.5-14.5) Immature Granulocyte % (Auto) 0.2 % Immature Granulocyte # (Auto) 0.01 K/uL (0.00-0.02) Prothrombin Time 11.4 SECONDS (9.0-12.0) Prothromb Time International Ratio 1.1 (0.9-1.1) Activated Partial Thromboplast Time 27.7 SECONDS (21.0-31.0) Partial Thromboplastin Ratio 1.1 Anion Gap 4.0 mmol/L (3-11) Est Creatinine Clear Calc Drug Dose 58.5 ml/min Estimated GFR () 55.8 Estimated GFR (Non- 48.1 BUN/Creatinine Ratio 15.2 (10-20) Calcium Level 9.1 mg/dl (8.5-10.1) Magnesium Level 2.4 mg/dl (1.8-2.4) Total Bilirubin 1.5 mg/dl (0.2-1) Direct Bilirubin 0.3 mg/dl (0-0.2) Aspartate Amino Transf (AST/SGOT) 22 U/L (15-37) Alanine Aminotransferase (ALT/SGPT) 18 U/L (12-78) Alkaline Phosphatase 94 U/L (45-117) Total Creatine Kinase 112 U/L (39-308) Creatine Kinase MB 2.3 ng/ml (0.5-3.6) Creatine Kinase MB Ratio 2.1 (0-3.0) Troponin I 0.020 ng/ml (0-0.045) Total Protein 7.6 gm/dl (6.4-8.2) Albumin 4.2 gm/dl (3.4-5.0) Lipase 85 U/L (73-393) Thyroid Stimulating Hormone (TSH) 3.340 uIu/ml (0.300-4.500) Bedside Prothrombin Time INR 1.0 (0.9-1.1) Laboratory results as stated above per my review. Medications Administered Medications (Trade) Dose Ordered Sig/Maryjane Route Start Time Stop Time Status Last Admin Dose Admin Warfarin Sodium (Coumadin Tab) 10 mg NOW ONCE PO 10/20/16 23:15 10/20/16 23:17 DC 10/20/16 23:20 10 MG ECG Indication: weakness Rate (beats per minute): 56 Rhythm: atrial fibrillation Findings: PVC, no ectopy, other (no acute injury) Comparison ECG Date: 12-Aug-2016 Change: no significant change ED Course 2005: Previous medical records were reviewed. The patient was evaluated in room B6. A complete history and physical examination was performed. 2100: Lovenox 1.5 mg/kg 1 ea SQ. 2302: On reevaluation, the patient is resting comfortably. I discussed the results and findings with the patient. He verbalized agreement of the treatment plan. He was discharged home. 2315: Coumadin Tab 10 mg PO. Medical Decision Differential includes acute coronary syndrome, myocardial infarction, CVA, TIA, anemia, infection, pneumonia, UTI, pyelonephritis, poor nutrition, dehydration, electrolyte disturbance,hypoglycemia. This is a 76-year-old male who presents to the ED with a chief complaint of slurring speech. The patient's symptoms started around 6:30 PM but now seem to be improved. He has a history of CVA/TIA in the past. He has a history of mechanical mitral valve repair. The patient's neurological evaluation here is relatively unremarkable. I did not appreciate any slurring of the speech, facial droop, weakness or other unusual symptoms. The nurse felt that he might have a slight right-sided facial droop on her exam. This was questioned on my exam. The patient's general exam was unremarkable. His vital signs are stable. Chest x-ray did not show acute disease. CT scan of the head did not show acute disease. There is also infarcts noted that are SIMILAR TO PREVIOUS. BLOOD WORK INCLUDING A CBC AND COMPLETE METABOLIC PANEL ARE NORMAL. THE PATIENT'S INR IS 1.1. HE WAS AWARE THAT IT WAS LOW. HE HAS FOLLOW-UP WITH THE COUMADIN CLINIC TOMORROW. THE PATIENT WAS GIVEN LOVENOX 1.5 MG/KG HERE WELL 10 MG BY MOUTH COUMADIN. HE STATES THAT HE IS TAKING 5 MG 3 TIMES A WEEK AND 2.5 THE OTHER DAYS. HE wants to be discharged. He was discharged, per his wishes. Medication Reconcilliation Current Medication List: was personally reviewed by me Blood Pressure Screening Patient's blood pressure: Elevated blood pressure Blood pressure disposition: Referred to PCP Impression Primary Impression: TIA (transient ischemic attack) Additional Impressions: Subtherapeutic anticoagulation Mechanical heart valve present Scribe Attestation The scribe's documentation has been prepared under my direction and personally reviewed by me in its entirety. I confirm that the note above accurately reflects all work, treatment, procedures, and medical decision making performed by me. Departure Information Dispostion Home / Self-Care Referrals Nadiya Multani CRNP (PCP) Patient Instructions My [facility] Problem Qualifiers
[2016-10-21] MEDS ORDERED: ENOXAPARIN 1.5 MG/KG SQ SCH (09:00)
== END 2016-10-20 23:34 | disposition home or self-care (01) ==
LOC: EDBD 19:51 → C.EDB 19:52
DX: G45.9 Transient cerebral ischemic attack, unspecified (principal); R79.1 Abnormal coagulation profile; Z95.2 Presence of prosthetic heart valve; Z86.73 Personal history of transient ischemic attack (TIA), and cerebral infarction without residual deficits; I10 Essential (primary) hypertension; Z85.819 Personal history of malignant neoplasm of unspecified site of lip, oral cavity, and pharynx; Z83.3 Family history of diabetes mellitus; Z82.49 Family history of ischemic heart disease and other diseases of the circulatory system; Z79.01 Long term (current) use of anticoagulants; Z79.82 Long term (current) use of aspirin; Z79.899 Other long term (current) drug therapy

== ENCOUNTER → 2017-01-23 | Outpatient (CLI) | payer OTHER, BC ==
[~2017-01-23] MED LIST changes: +ALPR-385 PO; -AMLO-114 PO; -ASPEC81 PO; +ASPI81CH2 PO; -FERR325T5 PO; +HYZ/10015 PO; -LOSA100T65 PO; -MAGN1TAB19 PO; +MGCS/ PO; +OPTIRAY 320 IV PRN; +TEMA15CA4 PO; -WARF5TAB7 PO; +WARF5TAB90 PO
--- NOTE | 2017-01-23 09:11 | DIAGNOSTIC IMAGING REPORT ---
ABD/PELVIS IV CONTRAST ONLY CT DOSE: 1685.80 mGy.cm HISTORY: Pain URINARY TRACT INFECTION, LOWER BACK PAIN TECHNIQUE: Multiaxial CT images of the abdomen and pelvis were performed following the use of intravenous contrast. A dose lowering technique was utilized adhering to the principles of ALARA. COMPARISON STUDY: None. FINDINGS: Small calcified granuloma left lung base. Lung bases otherwise are clear. Small fixed hiatal hernia. Prior cholecystectomy. Liver spleen and pancreas are considered unremarkable. Kidneys enhance uniformly. Mild cortical scarring is present bilaterally. 3.6 cm mid pole left renal cyst. No evidence for hydronephrosis. Partial fatty replacement of the pancreas. Nonobstructive bowel pattern. Mild chronic sigmoid diverticulosis. No acute diverticulitis. Mild degenerative changes of the osseous structures throughout. IMPRESSION: 1. Mild chronic sigmoid diverticulosis. 2. No evidence for acute diverticulitis. 3. Mild cortical scarring of both kidneys with a benign left renal cyst. 5. Small hiatal hernia. Prior cholecystectomy. The above report was generated using voice recognition software. It may contain grammatical, syntax or spelling errors. Electronically signed by: Riky France M.D. 01/23/2017 9:10 AM Dictated Date/Time: 01/23/2017 9:03 AM
== END | disposition home or self-care (01) ==
LOC: C.CTS 06:05
PROVIDERS: ATTEND Nurse Practitioner
DX: N39.0 Urinary tract infection, site not specified (principal); K57.30 Diverticulosis of large intestine without perforation or abscess without bleeding; N28.1 Cyst of kidney, acquired; K44.9 Diaphragmatic hernia without obstruction or gangrene; Z90.49 Acquired absence of other specified parts of digestive tract

== ENCOUNTER → 2017-01-25 | Outpatient (CLI) | payer OTHER, BC ==
--- NOTE | 2017-01-17 15:59 | HISTORY & PHYSICAL EXAMINATION ---
DATE OF ADMISSION: 02/15/2017 CHIEF COMPLAINT: Left knee pain. HISTORY OF PRESENT ILLNESS: Mr. Matson is a 76-year-old male with a 1-year history of left knee pain. The patient states over the last 6 weeks, his pain has gotten substantially worse. He rates his pain at 2/10 currently. He has pain with his daily activities. He has limited standing and walking tolerance. Pain is worse with weightbearing. The patient has had bracing. He is on Coumadin. He is unable to take NSAIDs. He has failed conservative treatment and is scheduled for left knee replacement. PAST MEDICAL HISTORY: Valve replacement, hypertension, and AFib. He denies heart disease, diabetes or DVT. PAST SURGICAL HISTORY: ORIF of mandible, cholecystectomy, and prostatectomy. SOCIAL HISTORY: The patient denies alcohol or tobacco use. He lives in a single story home. He is and retired. FAMILY HISTORY: Negative for DVT. MEDICATIONS: Coumadin 5 mg daily, losartan 25 mg daily, vitamin B12 at 100 mcg and Lasix p.r.n. ALLERGIES: ALLOPURINOL. REVIEW OF SYSTEMS: See HPI. Ten other systems reviewed, all negative. PHYSICAL EXAMINATION: VITAL SIGNS: Height 6 feet 0 inch, weight 250 pounds, and BMI is 35. GENERAL: This is a well-developed and well-nourished male who is alert and oriented x3. Mood and affect are appropriate. HEENT: Normocephalic and atraumatic. Mucous membranes are moist and intact. NECK: Supple without lymphadenopathy. HEART: Regular rate and rhythm without murmurs, rubs or gallops. He does have a slight click from his valve replacement. LUNGS: Clear to auscultation without wheezes or rhonchi. ABDOMEN: Soft and nontender. Bowel sounds are equal and active. EXTREMITIES: No ecchymosis, redness or warmth. The patient has neutral alignment. Range of motion is from 0-120 degrees with +1 medial laxity. He is neurovascularly intact. He does have chronic venous stasis changes. X-RAY EXAMINATION: AP and lateral views show joint space narrowing and osteophyte formation. IMPRESSION: Degenerative joint disease, left knee. PLAN: The patient will be admitted for a left total knee arthroplasty. The patient will stop his Coumadin 5 days preoperatively. He will likely need bridging with Lovenox due to his valve replacement. He is managed by the [facility] in [place]. He will discuss this with Dr. Milan at his cardiology clearance. He will have [facility] for home physical therapy.
[~2017-01-25] VITALS: Ht 182.9 cm; Wt 113.9 kg
[~2017-01-25] MED LIST changes: +BP MED PO; +CYAN100T6 PO; +CYCL10TA6 PO; +LOSA1TAB PO; +LOSA1TAB38 PO; -OPTIRAY 320 IV PRN; +OXYC1TAB3 PO; +VERA120T15 PO
[2017-01-25 11:02] VITALS: Ht 182.9 cm; Wt 113.9 kg
--- NOTE | 2017-01-25 11:50 | PAT Medication Instructions ---
Service Date Jan 25, 2017. Current Home Medication List Alprazolam (Xanax), 1-2 TABS PO HS PRN for PRN Cyanocobalamin (Vitamin B12 100 Mcg), 100 MCG PO QPM Furosemide (Furosemide), 20 MG PO HS Losartan Potassium (Cozaar), 100 MG PO HS Maalox/Diphen/Visc. Yayo/Glyc (Magic Swizzle), 15-30 ML PO PRN Potassium Chloride (K-Tab), 20 MEQ PO UD PRN for with furosemide Verapamil (Calan), 120 MG PO UD Warfarin Sodium (Coumadin), 2.5-5 MG PO QPM Medication Instructions For Your Scheduled Surgery - Pt unsure if taking; will call for clarification/instructions: Verapamil (Calan), 120 MG PO UD -Instructions to be given by Coumadin clinic: Warfarin Sodium (Coumadin), 2.5-5 MG PO QPM - Hold the following medications the morning of surgery: Maalox/Diphen/Visc. Yayo/Glyc (Magic Swizzle), 15-30 ML PO PRN - Take the following medications as scheduled the night before surgery: Alprazolam (Xanax), 1-2 TABS PO HS PRN Cyanocobalamin (Vitamin B12 100 Mcg), 100 MCG PO QPM Furosemide (Furosemide), 20 MG PO HS Potassium Chloride (K-Tab), 20 MEQ PO UD PRN for with furosemide - Do not take the following medications the night before surgery: Losartan Potassium (Cozaar), 100 MG PO HS *nothing to eat or drink after midnight* If you have any questions please call us at [phone] or [phone] or [phone]
[2017-01-25 12:52] LABS: BASO % 0.4 %; BASO ABS # 0.02 K/uL (0-0.2); EOS % 1.3 %; EOS ABS # 0.07 K/uL (0-0.5); HEMATOCRIT 40.4 % (42-52); HEMOGLOBIN 13.1 g/dL (14.0-18.0); IG# 0.01 K/uL (0.00-0.02); LYMPH % 13.9 %; LYMPH ABS # 0.75 K/uL (1.2-3.4); MEAN CELL VOLUME 91.6 fL (80-100); MEAN CORPUSCULAR HEMOGLOBIN 29.7 pg (25-34); MEAN CORPUSCULAR HGB CONC 32.4 g/dl (32-36); MEAN PLATELET VOLUME 9.9 fL (7.4-10.4); MONO % 9.4 %; MONO ABS # 0.51 K/uL (0.11-0.59); NEUT % 74.8 %; NEUT ABS # 4.04 K/uL (1.4-6.5); PLATELET COUNT 148 K/uL (130-400); RED CELL DISTRIBUTION WIDTH CV 13.5 % (11.5-14.5); RED CELL DISTRIBUTION WIDTH SD 45.2 fL (36.4-46.3)
[2017-01-25 12:53] LABS: HEMOGLOBIN A1C 5.9 % (4.5-5.6)
[2017-01-25 13:07] LABS: INR 3.1 (0.9-1.1); PTT PATIENT 39.9 SECONDS (21.0-31.0)
--- NOTE | 2017-01-25 13:30 | DIAGNOSTIC IMAGING REPORT ---
CHEST 2 VIEWS ROUTINE HISTORY: Preop. COMPARISON: Chest 10/20/2016. FINDINGS: Poststernotomy changes. The heart remains mildly enlarged. No pleural effusions. No pneumothorax. No evidence for pulmonary edema. Mild bibasilar interstitial thickening which is likely chronic. No focal lung consolidations to suggest pneumonia. IMPRESSION: Stable cardiomegaly and mild bibasilar interstitial thickening which is likely chronic. No acute process within the chest. Electronically signed by: Mark Abdullahi M.D. 01/25/2017 1:29 PM Dictated Date/Time: 01/25/2017 1:28 PM
[2017-01-25 15:31] LABS: ALBUMIN 3.7 gm/dl (3.4-5.0); CALCIUM 8.5 mg/dl (8.5-10.1); CREATININE 1.53 mg/dl (0.60-1.40); POTASSIUM 3.4 mmol/L (3.5-5.1)
== END | disposition home or self-care (01) ==
LOC: C.LAB 08:00 → EDSTATUS 02-15 09:15
PROVIDERS: ATTEND Orthopaedic Surgery
DX: Z01.818 Encounter for other preprocedural examination (principal); Z01.812 Encounter for preprocedural laboratory examination; Z01.810 Encounter for preprocedural cardiovascular examination

== ENCOUNTER 2017-03-22 09:16 | Emergency (ER) | payer OTHER, BC ==
[~2017-03-22] VITALS: Ht 182.9 cm; Wt 112.0 kg
[~2017-03-22 09:16] MED LIST changes: -ASPI81CH2 PO; -BP MED PO; -CYAN1TAB18 PO; -HYZ/10015 PO; -LOSA1TAB PO; -OXYC1TAB3 PO; -TEMA15CA4 PO
[2017-03-22 09:31] VITALS: TEMP 36.8; Ht 182.9 cm; Wt 112.0 kg
[2017-03-22] MEDS ORDERED: OXYCODONE/ACETAMINOPHEN 5-325 TAB PO STA ×2 (10:08→12:38)
[2017-03-22 10:40] LABS: BASO % 0.2 %; BASO ABS # 0.02 K/uL (0-0.2); EOS % 0.7 %; EOS ABS # 0.07 K/uL (0-0.5); HEMATOCRIT 43.6 % (42-52); HEMOGLOBIN 14.5 g/dL (14.0-18.0); IG# 0.03 K/uL (0.00-0.02); LYMPH % 8.1 %; LYMPH ABS # 0.81 K/uL (1.2-3.4); MEAN CELL VOLUME 92.8 fL (80-100); MEAN CORPUSCULAR HEMOGLOBIN 30.9 pg (25-34); MEAN CORPUSCULAR HGB CONC 33.3 g/dl (32-36); MEAN PLATELET VOLUME 10.2 fL (7.4-10.4); NEUT % 82.7 %; NEUT ABS # 8.29 K/uL (1.4-6.5); PLATELET COUNT 191 K/uL (130-400); RED CELL DISTRIBUTION WIDTH CV 14.3 % (11.5-14.5); RED CELL DISTRIBUTION WIDTH SD 48.5 fL (36.4-46.3); WHITE BLOOD COUNT 10.02 K/uL (4.8-10.8)
[2017-03-22 10:54] LABS: INR 3.7 (0.9-1.1)
[2017-03-22 11:00] LABS: CALCIUM 9.4 mg/dl (8.5-10.1); CREATININE 1.18 mg/dl (0.60-1.40); POTASSIUM 3.9 mmol/L (3.5-5.1)
--- NOTE | 2017-03-22 11:03 | EMERGENCY ROOM VISIT NOTE ---
History Report prepared by Kimberlyn: Castro Conley Under the Supervision of: Dr. Shamar Lux M.D. First contact with patient: 09:51 Chief Complaint: LEG PAIN,LEG INJURY Stated Complaint: RT LEG AND KNEE PAIN History of Present Illness The patient is a 76 year old male with a pmhx of OA and mechanical heart valve on Coumadin who presents to the Emergency Room with complaints of right knee pain, swelling, and bruising in the setting of receiving a steroid injection into his right knee 1 week ago for his knee pain related to his arthritis. Patient reports, as far as he knows he had not check his INR in the last month. Reports swelling has progressively become worse since the injection despite using an CACHORRO wrap. Able to ambulate and bear weight but it is painful. Denies f/ c, n/v, CONTRERAS, dizziness, numbness, weakness. Review of Systems See HPI for pertinent positives and negatives. A total of ten systems were reviewed and were otherwise negative. Past Medical & Surgical Medical Problems: (1) Anticoagulated on warfarin (2) Atrial Fibrillation (3) Cerebrovascular disease (4) Chronic pulmonary aspiration (5) History of lower GI bleeding (6) History of oral cancer (7) Hypertension (8) Hypertension Nos (9) Tinnitus Nos Surgical Problems: (1) H/O colonoscopy (2) H/O mitral valve replacement with mechanical valve (3) History of dental surgery (4) History of mandibular surgery (5) S/P cholecystectomy (6) S/P ERCP Family History Diabetes mellitus SISTER Heart disease Social History Smoking Status: Never Smoker Alcohol Use: none Drug Use: none Marital Status: Housing Status: lives with family Occupation Status: retired Current/Historical Medications Scheduled Furosemide (Furosemide), 20 MG PO HS Losartan Potassium (Cozaar), 100 MG PO HS Verapamil (Calan), 120 MG PO BID Warfarin Sodium (Coumadin), 2.5-5 MG PO QPM Scheduled PRN Oxycodone Ir (Roxicodone Ir), 1-2 TAB PO Q6H PRN for Pain Potassium Chloride (K-Tab), 20 MEQ PO UD PRN for with furosemide Allergies Coded Allergies: Allopurinol (Unverified Allergy, Unknown, COUGH, 03/22/17) Lisinopril (Verified Adverse Reaction, Unknown, COUGH, 03/22/17) Physical Exam Vital Signs Date Time Temp Pulse Resp B/P (MAP) Pulse Ox O2 Delivery O2 Flow Rate FiO2 03/22/17 14:43 61 18 115/87 96 03/22/17 12:18 58 16 113/80 95 Room Air 03/22/17 09:31 36.8 59 18 137/91 94 Room Air Physical Exam GENERAL: Awake, alert, uncomfortable-appearing, in no distress HENT: Normocephalic, atraumatic. Oropharynx unremarkable. EYES: Normal conjunctiva. Sclera non-icteric. NECK: Supple. No nuchal rigidity. FROM. No JVD. RESPIRATORY: Clear to auscultation. CARDIAC: Regular rate, normal rhythm. Extremities warm and well perfused. Pulses equal. ABDOMEN: Soft, non-distended. No tenderness to palpation. No rebound or guarding. No masses. RECTAL: Deferred. MUSCULOSKELETAL: Chest examination reveals no tenderness. The back is symmetrical on inspection without obvious abnormality. There is no CVA tenderness to palpation. No joint edema. LOWER EXTREMITIES: 10cm area of ecchymosis along the medial aspect of the knee extending proximally. Compartment is soft. Passive range of motion intact without pain. No warmth or crepitus. Distal PMS intact. Calves are equal size bilaterally and non-tender. NEURO: Normal sensorium. No sensory or motor deficits noted. SKIN: No rash or jaundice noted. Medical Decision & Procedures ER Provider Diagnostic Interpretation: Radiology results as stated below per my review and radiologist interpretation: R VENOUS DOPP LOWER EXT UNILAT CLINICAL HISTORY: pain swelling pain. Edema. TECHNIQUE: Ultrasound COMPARISON STUDY: None FINDINGS: Normal venous Doppler. No evidence of deep venous thrombosis. The superficial area of bruising appears to relate to a 7 x 4 x 2 cm hematoma. IMPRESSION: 1. Study is negative for deep venous thrombosis. 2. Hematoma deep to the superficial region of bruising The above report was generated using voice recognition software. It may contain grammatical, syntax or spelling errors. Electronically signed by: Riky France M.D. 03/22/2017 11:46 AM Dictated Date/Time: 03/22/2017 11:45 AM R KNEE 3 VIEWS HISTORY: 76 years-old Male pain swelling acute right knee pain and swelling COMPARISON: None available TECHNIQUE: 3 views of the right knee FINDINGS: Mild to moderate medial with minimal lateral and mild to moderate patellofemoral compartment osteoarthritis. No acute fracture or subluxation identified. Peripheral vascular disease. Moderate joint effusion with moderate soft tissue swelling. IMPRESSION: 1. Moderate sized joint effusion with moderate soft tissue swelling. No acute fracture or subluxation. 2. Peripheral vascular disease. 3. Degenerative changes as above. The above report was generated using voice recognition software. It may contain grammatical, syntax or spelling errors. Electronically signed by: Trevor Paul M.D. 03/22/2017 11:03 AM Dictated Date/Time: 03/22/2017 11:02 AM Laboratory Results 03/22/17 10:25 Red Blood Count 4.70, Mean Corpuscular Volume 92.8, Mean Corpuscular Hemoglobin 30.9, Mean Corpuscular Hemoglobin Concent 33.3, Mean Platelet Volume 10.2, Neutrophils (%) (Auto) 82.7, Lymphocytes (%) (Auto) 8.1, Monocytes (%) (Auto) 8.0, Eosinophils (%) (Auto) 0.7, Basophils (%) (Auto) 0.2, Neutrophils # (Auto) 8.29, Lymphocytes # (Auto) 0.81, Monocytes # (Auto) 0.80, Eosinophils # (Auto) 0.07, Basophils # (Auto) 0.02 03/22/17 10:25 Test 03/22/17 10:25 White Blood Count 10.02 K/uL (4.8-10.8) Red Blood Count 4.70 M/uL (4.7-6.1) Hemoglobin 14.5 g/dL (14.0-18.0) Hematocrit 43.6 % (42-52) Mean Corpuscular Volume 92.8 fL (80-100) Mean Corpuscular Hemoglobin 30.9 pg (25-34) Mean Corpuscular Hemoglobin Concent 33.3 g/dl (32-36) Platelet Count 191 K/uL (130-400) Mean Platelet Volume 10.2 fL (7.4-10.4) Neutrophils (%) (Auto) 82.7 % Lymphocytes (%) (Auto) 8.1 % Monocytes (%) (Auto) 8.0 % Eosinophils (%) (Auto) 0.7 % Basophils (%) (Auto) 0.2 % Neutrophils # (Auto) 8.29 K/uL (1.4-6.5) Lymphocytes # (Auto) 0.81 K/uL (1.2-3.4) Monocytes # (Auto) 0.80 K/uL (0.11-0.59) Eosinophils # (Auto) 0.07 K/uL (0-0.5) Basophils # (Auto) 0.02 K/uL (0-0.2) RDW Standard Deviation 48.5 fL (36.4-46.3) RDW Coefficient of Variation 14.3 % (11.5-14.5) Immature Granulocyte % (Auto) 0.3 % Immature Granulocyte # (Auto) 0.03 K/uL (0.00-0.02) Prothrombin Time 38.3 SECONDS (9.0-12.0) Prothromb Time International Ratio 3.7 (0.9-1.1) Anion Gap 6.0 mmol/L (3-11) Est Creatinine Clear Calc Drug Dose 67.8 ml/min Estimated GFR () 68.6 Estimated GFR (Non- 59.2 BUN/Creatinine Ratio 16.8 (10-20) Calcium Level 9.4 mg/dl (8.5-10.1) Laboratory results reviewed by me Medications Administered Medications (Trade) Dose Ordered Sig/Maryjane Route Start Time Stop Time Status Last Admin Dose Admin Oxycodone/ Acetaminophen (Percocet 5-325mg Tab) 1 tab NOW STAT PO 03/22/17 10:08 03/22/17 10:12 DC 03/22/17 10:23 1 TAB Oxycodone/ Acetaminophen (Percocet 5-325mg Tab) 1 tab NOW STAT PO 03/22/17 12:38 03/22/17 12:40 DC 03/22/17 12:46 1 TAB ED Course 0951: The patient was evaluated in room C6. A complete history and physical exam was performed. 1350: I reevaluated the patient, and he was feeling better. Discussed results and discharge instructions: he verbalized understanding and agreement. The patient is ready for discharge. Medical Decision I reviewed the patient's past medical history, medications, and the nursing notes as described above. The patient's presentation and history were concerning for hematoma, hemarthrosis, DVT, fracture, soft tissue injury, cellulitis, septic knee. The patient is a 76-year-old gentleman with a past medical history of mechanical heart valve on Coumadin, osteoarthritis who presents emergency Department with right knee pain, swelling, ecchymosis after having a steroid injection for his arthritis 5 days [employer] per hpi. On arrival the patient is no distress, afebrile stable vital signs. 10cm region of echymosis and fluctuance of medial right knee extending proximally. Compartments soft. Passive ROM without pain. No warmth or crepitus. Septic joint not likely. Patient reports his INR usually ranges from 2-3.5 and is not aware of checking his INR in the past month. Denies any chest pain, shortness of breath, nausea or vomiting. Labs notable for INR of 3.7. H&H is unremarkable. X-ray demonstrates a moderate knee effusion. Duplex negative for DVT but findings consistent with hematoma. Thus patient instructed to skip his Coumadin dose tonight and to contact his Coumadin clinic tomorrow for further instructions. Patient will also follow up with orthopedics regarding his hematoma and possible hemarthrosis. Patient was given CACHORRO bandage for compression and walker for weight bearing as tolerated. Findings and plan for follow-up reviewed with patient. Patient agreeable and d/c'd per discharge instructions. [place] Drug Monitoring Program Search Results: patient reviewed within database (no concerns) Medication Reconcilliation Current Medication List: was personally reviewed by me Blood Pressure Screening Patient's blood pressure: Normal blood pressure Impression Primary Impression: Hematoma Additional Impressions: Effusion of knee joint right Elevated INR Scribe Attestation The scribe's documentation has been prepared under my direction and personally reviewed by me in its entirety. I confirm that the note above accurately reflects all work, treatment, procedures, and medical decision making performed by me. Departure Information Dispostion Home / Self-Care Prescriptions Oxycodone Ir (Roxicodone Ir) 5 Mg Tab 1-2 TAB PO Q6H Y for Pain, #15 TAB Prov: Shamar Lux M.D. 03/22/17 Referrals Cosme Medellin PA-C (PCP) Rainer DanielD.O. Forms HOME CARE DOCUMENTATION FORM, IMPORTANT VISIT INFORMATION Patient Instructions Coumadin, ED Effusion Knee, ED Hematoma, My [facility] Additional Instructions Please follow up with orthopedics, Dr. Daniel, within the next week for re- evaluation. You should also hold your Coumadin dose tonight as your INR was 3.7 today and contact your coagulation clinic for repeat testing and further Coumadin recommendations. You have a hematoma that possibly also involves your knee joint. Otherwise, your exam, xray, ultrasound, and lab results did not show signs of an emergent condition at this time. Acetaminophen for pain as needed. Oxycodone for breakthrough pain as needed. Cachorro bandage to help with hematoma resolution. Walker for weight bearing as tolerated. Return to the emergency department for worsening symptoms as described in the accompanying instructions. Problem Qualifiers
--- NOTE | 2017-03-22 11:47 | DIAGNOSTIC IMAGING REPORT ---
R VENOUS DOPP LOWER EXT UNILAT CLINICAL HISTORY: pain swelling pain. Edema. TECHNIQUE: Ultrasound COMPARISON STUDY: None FINDINGS: Normal venous Doppler. No evidence of deep venous thrombosis. The superficial area of bruising appears to relate to a 7 x 4 x 2 cm hematoma. IMPRESSION: 1. Study is negative for deep venous thrombosis. 2. Hematoma deep to the superficial region of bruising The above report was generated using voice recognition software. It may contain grammatical, syntax or spelling errors. Electronically signed by: Riky France M.D. 03/22/2017 11:46 AM Dictated Date/Time: 03/22/2017 11:45 AM
[2017-03-22] MEDS ORDERED: OXYC1TAB3 PO (14:12)
[2017-03-22 14:43] VITALS: BP 115/87; PULSE 61; O2SAT 96
== END 2017-03-22 14:40 | disposition home or self-care (01) ==
LOC: C.EDB 09:18 → C.EDC 14:40
DX: S80.01XA Contusion of right knee, initial encounter (principal); X58.XXXA Exposure to other specified factors, initial encounter; M25.461 Effusion, right knee; R79.1 Abnormal coagulation profile; I48.91 Unspecified atrial fibrillation; I10 Essential (primary) hypertension; M17.11 Unilateral primary osteoarthritis, right knee; H93.19 Tinnitus, unspecified ear; Z79.01 Long term (current) use of anticoagulants; Z85.819 Personal history of malignant neoplasm of unspecified site of lip, oral cavity, and pharynx; Z95.2 Presence of prosthetic heart valve; Z83.3 Family history of diabetes mellitus

== ENCOUNTER 2017-04-06 13:22 | Inpatient (IN) | payer OTHER, BC ==
[~2017-04-06] VITALS: Ht 185.4 cm; Wt 111.8 kg
[~2017-04-06 13:22] MED LIST changes: -ALPR-385 PO; -CYAN100T6 PO; -CYCL10TA6 PO; -MGCS/ PO; +OXYC1TAB3 PO
--- NOTE | 2017-04-06 14:12 | EMERGENCY ROOM VISIT NOTE ---
History Report prepared by Kimberlyn: Doug Chinchilla Under the Supervision of: Dr. Tobias Tyler D.O. First contact with patient: 13:57 Chief Complaint: ILLNESS Stated Complaint: BLEEDING INSIDE History of Present Illness The patient is a 76 year old male who presents to the Emergency Room with complaints of constant abnormal lab work that started today. He rates his discomfort as an 8/10 in severity. The patient states that he had a shot in his knee, which he developed a hematoma from. He reports that he saw his doctor who told him that he has to wait for the hematoma to go down. The patient states that his leg has been swollen, but admits that his swelling was able to go down. He reports that today, the right leg became painful and swollen again. The patient reports that he also noticed he has been wheezing. The patient states that he recently had blood drawn, which showed an INR of 7.9. He reports that his physician, Dr. West, told him to report to the ED. He denies fever, a history of blood clots in his legs. The patient reports a history of carcinoma of the mouth and tongue in 2002, CHF in 1994, cholecystectomy, and TIA. Source of History: patient Onset: today Position: other (global) Symptom Intensity: 8/10 Quality: other (INR 7.9) Timing: constant Associated Symptoms: No fevers Note: Associated symptoms: right leg swelling and pain, wheezing Review of Systems See HPI for pertinent positives & negatives. A total of 10 systems reviewed and were otherwise negative. Past Medical & Surgical Medical Problems: (1) Anticoagulated on warfarin (2) Atrial Fibrillation (3) Cerebrovascular disease (4) Chronic pulmonary aspiration (5) Hematoma (6) History of lower GI bleeding (7) History of oral cancer (8) Hypertension (9) Hypertension Nos (10) Tinnitus Nos Surgical Problems: (1) H/O colonoscopy (2) H/O mitral valve replacement with mechanical valve (3) History of dental surgery (4) History of mandibular surgery (5) S/P cholecystectomy (6) S/P ERCP Family History Diabetes mellitus SISTER Heart disease Social History Smoking Status: Never Smoker Alcohol Use: none Drug Use: none Marital Status: Housing Status: lives with family Occupation Status: retired Current/Historical Medications Scheduled Losartan Potassium (Cozaar), 100 MG PO DAILY Verapamil (Calan), 120 MG PO BID Warfarin Sod (Coumadin), 2.5 MG PO 3XWK Warfarin Sodium (Warfarin Sodium), 1 TAB PO 4XWK Scheduled PRN Furosemide (Furosemide), 20 MG PO HS PRN for edema Potassium Chloride (K-Tab), 20 MEQ PO UD PRN for with furosemide Allergies Coded Allergies: Allopurinol (Unverified Allergy, Unknown, COUGH, 03/22/17) Lisinopril (Verified Adverse Reaction, Unknown, COUGH, 03/22/17) Physical Exam Vital Signs Date Time Temp Pulse Resp B/P (MAP) Pulse Ox O2 Delivery O2 Flow Rate FiO2 04/06/17 15:54 60 16 179/102 94 Room Air 04/06/17 14:52 97 Room Air 04/06/17 14:04 59 04/06/17 13:31 36.9 70 20 100 Room Air Physical Exam GENERAL: Patient is awake, alert, and in no acute distress. Patient is resting comfortably and showing no signs of anxiety EYES: The conjunctivae are clear. The pupils are round and reactive. EARS, NOSE, MOUTH AND THROAT: The nose is without any evidence of any deformity. Mucous membranes are moist tongue is midline NECK: The neck is nontender and supple. RESPIRATORY: Breath sounds diminished throughout with scattered rhonchi. No tachypnea or conversational dyspnea. CARDIOVASCULAR: Regular rate and rhythm. Metallic click noted. GASTROINTESTINAL: The abdomen is soft. Bowel sounds are present in all quadrants. Abdomen is nontender BACK: No midline tenderness or or step-off noted range of motion in flexion extension as well as rotation no signs of muscle spasm noted MUSCULOSKELETAL/EXTREMITIES: There is no evidence of gross deformity full range of motion is noted in the hips and shoulders SKIN: Swelling and effusion to the right knee. No warmth. Ecchymosis noted over the medial aspect of the knee. Pedal edema bilaterally with right greater than the left. Hematome noted on the medial aspect of the right thigh. NEUROLOGIC: Patient is awake alert and oriented x3. Medical Decision & Procedures ER Provider Diagnostic Interpretation: Radiology results as stated below per my review and radiologist interpretation: CHEST ONE VIEW PORTABLE CLINICAL HISTORY: Respiratory distress COMPARISON STUDY: 01/25/2017 FINDINGS: The heart is enlarged. There are postsurgical changes of a midline sternotomy. There is no overt failure. There is no focal pulmonary consolidation. There are no pleural effusions.[ IMPRESSION: Cardiomegaly. No evidence of focal pulmonary consolidation Electronically signed by: Usama Spencer M.D. 04/06/2017 2:26 PM Dictated Date/Time: 04/06/2017 2:25 PM RIGHT KNEE 2 VIEWS CLINICAL HISTORY: pain COMPARISON: None. DISCUSSION: No acute fractures or dislocations are visualized. There are moderate osteoarthritic changes most pronounced within the medial joint compartment. There is a suprapatellar joint effusion. IMPRESSION: 1. Moderate osteoarthritic change 2. Joint effusion 3. No acute fractures Electronically signed by: Usama Spencer M.D. 04/06/2017 2:25 PM Dictated Date/Time: 04/06/2017 2:24 PM ULTRASOUND RIGHT LOWER EXTREMITY VENOUS CLINICAL HISTORY: Right leg swelling. COMPARISON STUDY: Right lower extremity venous ultrasound dated 03/22/2017. TECHNIQUE: Real-time, grayscale, and color Doppler sonography of the deep veins of the right lower extremity was performed from the inguinal crease to the calf. Compression and augmentation were utilized. FINDINGS: There is no sonographic evidence of deep venous thrombosis identified in the right lower extremity. The common femoral, superficial femoral, and popliteal veins are patent and normally compressible. The greater saphenous vein and the profunda femoris vein at the junction with the common femoral vein are clear. The visualized calf veins are patent. There is a hypoechoic fluid collection seen in the mid to distal thigh which measures 14 x 2 x 6 cm. A smaller MR complex appearing hypoechoic fluid collection is seen in the lateral distal thigh measuring 12 x 3 x 7 cm. IMPRESSION: 1. There is no sonographic evidence of deep venous thrombosis identified in the right lower extremity. 2. There are 2 complex fluid collections identified in the distal thigh as above, likely representing hematomas. The larger collection has increased in size from 03/22/2017. Clinical correlation will be essential. Clinical follow-up to resolution is recommended. Electronically signed by: Isaac Keen M.D. 04/06/2017 3:50 PM Dictated Date/Time: 04/06/2017 3:48 PM Laboratory Results Test 04/06/17 14:25 04/06/17 14:35 Activated Partial Thromboplast Time 50.3 SECONDS (21.0-31.0) Partial Thromboplastin Ratio 1.9 Total Bilirubin 1.4 mg/dl (0.2-1) Aspartate Amino Transf (AST/SGOT) 19 U/L (15-37) Alanine Aminotransferase (ALT/SGPT) 17 U/L (12-78) Alkaline Phosphatase 116 U/L (45-117) Troponin I < 0.015 ng/ml (0-0.045) Pro-B-Type Natriuretic Peptide 881 pg/ml (0-1800) Total Protein 7.2 gm/dl (6.4-8.2) Albumin 3.5 gm/dl (3.4-5.0) Globulin 3.7 gm/dl (2.5-4.0) Albumin/Globulin Ratio 0.9 (0.9-2) Chemistry Specimen Hemolysis Immature Granulocyte % (Auto) 0.2 % White Blood Count 5.41 K/uL (4.8-10.8) Red Blood Count 3.86 M/uL (4.7-6.1) Hemoglobin 11.9 g/dL (14.0-18.0) Hematocrit 36.6 % (42-52) Mean Corpuscular Volume 94.8 fL (80-100) Mean Corpuscular Hemoglobin 30.8 pg (25-34) Mean Corpuscular Hemoglobin Concent 32.5 g/dl (32-36) Platelet Count 161 K/uL (130-400) Mean Platelet Volume 9.9 fL (7.4-10.4) Neutrophils (%) (Auto) 78.9 % Lymphocytes (%) (Auto) 10.7 % Monocytes (%) (Auto) 9.1 % Eosinophils (%) (Auto) 1.1 % Basophils (%) (Auto) 0.0 % Neutrophils # (Auto) 4.27 K/uL (1.4-6.5) Lymphocytes # (Auto) 0.58 K/uL (1.2-3.4) Monocytes # (Auto) 0.49 K/uL (0.11-0.59) Eosinophils # (Auto) 0.06 K/uL (0-0.5) Basophils # (Auto) 0.00 K/uL (0-0.2) Immature Granulocyte # (Auto) 0.01 K/uL (0.00-0.02) Laboratory results per my review. ECG Indication: SOB/dyspnea Rate (beats per minute): 63 Rhythm: atrial fibrillation Findings: no ectopy, other (No actue ST segments) Comparison ECG Date: 10/20/16 Change: no significant change Change: Patient's EKG was interpreted by me. ED Course 1358: The patient was evaluated in room B02. A complete history and physical examination were performed. 1605: I discussed the patient's case with MARIUSZ Youssef [facility] Hospitalist. She understands the patient's condition and agrees to accept the patient. The patient will be further evaluated. Medical Decision Prior records reviewed and summarized above. Triage Nursing notes reviewed. Additional history obtained from the family. The patient's history was concerning for swelling and pain in the leg. Differential diagnosis: Etiologies such as DVT, musculoskeletal, infection, joint effusion, trauma, lymphedema, idiopathic, CHF, as well as others were entertained. The patient is a 76-year-old male who presented to the emergency department for an evaluation of right thigh pain. The patient takes Coumadin because of a valve replacement. He presented to the emergency department today because of increasing pain in his thigh where he has a known hematoma but also because his INR has been elevated. The patient had an ultrasound which revealed some enlargement of the thigh hematoma. I discussed the patient's laboratory and radiographic studies with him. I discussed his case with the on-call [facility] hospitalist group. At this time we will hold the patient's Coumadin and the patient is to be evaluated by orthopedics. The patient was reevaluated multiple times. Medication Reconcilliation Current Medication List: was personally reviewed by me Blood Pressure Screening Patient's blood pressure: Elevated blood pressure Blood pressure disposition: Elevated BP felt to be situational Consults Time Called: 1605 Consulting Physician: MARIUSZ Youssef [facility] Hospitalist Returned Call: 1605 I discussed the patient's case with MARIUSZ Youssef [facility] Hospitalist. She understands the patient's condition and agrees to accept the patient. The patient will be further evaluated. Impression Primary Impression: Anemia Additional Impressions: Supratherapeutic INR Hematoma of right thigh Scribe Attestation The scribe's documentation has been prepared under my direction and personally reviewed by me in its entirety. I confirm that the note above accurately reflects all work, treatment, procedures, and medical decision making performed by me. Departure Information Dispostion Being Evaluated By Hospitalist Referrals Cosme Medellin PA-C (PCP) Patient Instructions My [place] [facility] Problem Qualifiers Primary Impression: Anemia Anemia type: unspecified type Qualified Codes: D64.9 - Anemia, unspecified Additional Impressions: Hematoma of right thigh Encounter type: subsequent encounter Qualified Codes: S70.11XD - Contusion of right thigh, subsequent encounter
--- NOTE | 2017-04-06 14:26 | DIAGNOSTIC IMAGING REPORT ---
RIGHT KNEE 2 VIEWS CLINICAL HISTORY: pain COMPARISON: None. DISCUSSION: No acute fractures or dislocations are visualized. There are moderate osteoarthritic changes most pronounced within the medial joint compartment. There is a suprapatellar joint effusion. IMPRESSION: 1. Moderate osteoarthritic change 2. Joint effusion 3. No acute fractures Electronically signed by: Usama Spencer M.D. 04/06/2017 2:25 PM Dictated Date/Time: 04/06/2017 2:24 PM
--- NOTE | 2017-04-06 14:27 | DIAGNOSTIC IMAGING REPORT ---
CHEST ONE VIEW PORTABLE CLINICAL HISTORY: Respiratory distress COMPARISON STUDY: 01/25/2017 FINDINGS: The heart is enlarged. There are postsurgical changes of a midline sternotomy. There is no overt failure. There is no focal pulmonary consolidation. There are no pleural effusions.[ IMPRESSION: Cardiomegaly. No evidence of focal pulmonary consolidation Electronically signed by: Usama Spencer M.D. 04/06/2017 2:26 PM Dictated Date/Time: 04/06/2017 2:25 PM
[2017-04-06 14:48] LABS: EOS % 1.1 %; EOS ABS # 0.06 K/uL (0-0.5); HEMATOCRIT 36.6 % (42-52); HEMOGLOBIN 11.9 g/dL (14.0-18.0); IG# 0.01 K/uL (0.00-0.02); LYMPH % 10.7 %; LYMPH ABS # 0.58 K/uL (1.2-3.4); MEAN CELL VOLUME 94.8 fL (80-100); MEAN CORPUSCULAR HEMOGLOBIN 30.8 pg (25-34); MEAN CORPUSCULAR HGB CONC 32.5 g/dl (32-36); MEAN PLATELET VOLUME 9.9 fL (7.4-10.4); MONO % 9.1 %; MONO ABS # 0.49 K/uL (0.11-0.59); NEUT % 78.9 %; NEUT ABS # 4.27 K/uL (1.4-6.5); PLATELET COUNT 161 K/uL (130-400); RED CELL DISTRIBUTION WIDTH CV 14.8 % (11.5-14.5); RED CELL DISTRIBUTION WIDTH SD 50.9 fL (36.4-46.3); WHITE BLOOD COUNT 5.41 K/uL (4.8-10.8)
[2017-04-06 14:59] LABS: ALBUMIN 3.5 gm/dl (3.4-5.0); ALT/SGPT 17 U/L (12-78); AST/SGOT 19 U/L (15-37); BLOOD UREA NITROGEN 15 mg/dl (7-18); CALCIUM 8.2 mg/dl (8.5-10.1); CARBON DIOXIDE 31 mmol/L (21-32); CREATININE 1.13 mg/dl (0.60-1.40); GLUCOSE 129 mg/dl (70-99); POTASSIUM 3.7 mmol/L (3.5-5.1); SODIUM 139 mmol/L (136-145)
[2017-04-06 15:01] LABS: ALKALINE PHOSPHATASE 116 U/L (45-117); TOTAL PROTEIN 7.2 gm/dl (6.4-8.2)
[2017-04-06 15:03] LABS: INR 6.8 (0.9-1.1)
[2017-04-06 15:04] LABS: PTT PATIENT 50.3 SECONDS (21.0-31.0)
--- NOTE | 2017-04-06 15:52 | DIAGNOSTIC IMAGING REPORT ---
ULTRASOUND RIGHT LOWER EXTREMITY VENOUS CLINICAL HISTORY: Right leg swelling. COMPARISON STUDY: Right lower extremity venous ultrasound dated 03/22/2017. TECHNIQUE: Real-time, grayscale, and color Doppler sonography of the deep veins of the right lower extremity was performed from the inguinal crease to the calf. Compression and augmentation were utilized. FINDINGS: There is no sonographic evidence of deep venous thrombosis identified in the right lower extremity. The common femoral, superficial femoral, and popliteal veins are patent and normally compressible. The greater saphenous vein and the profunda femoris vein at the junction with the common femoral vein are clear. The visualized calf veins are patent. There is a hypoechoic fluid collection seen in the mid to distal thigh which measures 14 x 2 x 6 cm. A smaller MR complex appearing hypoechoic fluid collection is seen in the lateral distal thigh measuring 12 x 3 x 7 cm. IMPRESSION: 1. There is no sonographic evidence of deep venous thrombosis identified in the right lower extremity. 2. There are 2 complex fluid collections identified in the distal thigh as above, likely representing hematomas. The larger collection has increased in size from 03/22/2017. Clinical correlation will be essential. Clinical follow-up to resolution is recommended. Electronically signed by: Isaac Keen M.D. 04/06/2017 3:50 PM Dictated Date/Time: 04/06/2017 3:48 PM
[2017-04-06] MEDS ORDERED: ACETAMINOPHEN 325 MG TAB PO PRN (17:30)
[2017-04-06] MEDS ORDERED: ONDANSETRON INJ 2 MG/ML 2 ML VIAL IV PRN (17:30)
[2017-04-06] MEDS ORDERED: WARF-246 PO (17:51)
[2017-04-06] MEDS ORDERED: CMD/25 PO (17:51)
[2017-04-06] MEDS ORDERED: PHYTONADIONE 5 MG TAB PO ONE (18:15)
[2017-04-06 19:21] VITALS: BP 190/103; PULSE 76; TEMP 36.9; Ht 185.4 cm; Wt 111.8 kg
[2017-04-06] MEDS ORDERED: OXYCODONE/ACETAMINOPHEN 5-325 TAB PO PRN (19:30)
[2017-04-06] MEDS: MoRPHine SULFATE 2 MG/ML CARP IV PRN ×2 (19:35→21:38)
[2017-04-06 21:17] LABS: HEMATOCRIT 34.2 % (42-52); HEMOGLOBIN 11.2 g/dL (14.0-18.0)
[2017-04-06 21:28] VITALS: PULSE 74; O2SAT 94
[2017-04-06] MEDS: ALBUT/IPRATROP 3MG/0.5MG NEB 3 ML VIAL INH PRN (21:28)
--- NOTE | 2017-04-06 21:38 | History and Physical ---
History & Physical Date & Time of Service: Apr 06, 2017 ~ 17:00 Chief Complaint: High INR, Thigh Hematoma Primary Care Physician: Cosme Medellin PA-C History of Present Illness 76 year old male who was referred to the ED by his PCP for evaluation of elevated INR and right thigh hematoma. About 2 weeks ago, patient had a steroid injection of his right knee. He subsequently developed swelling in the thigh and around the knee. He was seen in the ED on 03/22 and had an US that showed a 7 x 4 x 2 cm hematoma. Patient was also evaluated by orthopedics as an outpatient for the hematoma as well. Patient is anticoagulated on Coumadin for chronic atrial fibrillation and mechanical mitral valve. Patient reports increasing swelling and pain to the right thigh. He is having difficulty walking. He denies lightheadedness, dizziness, diaphoresis, or syncopal events. No chest pain or shortness of breath. He denies abdominal pain, nausea, vomiting , and diarrhea. No fevers or chills. He denies urinary symptoms. In the ED, patient's INR is 6.8, hgb is 11.9. US shows increased size of the hematoma. Vitals are stable. Patient was noted to have significant difficulty ambulating to the bathroom due to the pain. 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 One 6 mm, recently bleeding polyp in the ascending colon. Treated with bipolar cautery. An actively bleeding ulcer at presumed polypectomy site in the ascending colon. Hemostasis established with epinephrine injection, bipolar coagulation, and placement of clips. An ulcer at presumed polypectomy site in the transverse colon. Clot removed and clips (MR conditional) were placed. Diverticulosis in the sigmoid colon. Blood in the entire examined colon. No specimens collected." Colonoscopy [facility] [place]/16- "7 mm cecal polyp s/p cold snare and clip closure. Post polypectomy ulcer with pigmented protuberance and residual polyp s/p cold snaring of residual polyp and clip closure. Post polypectomy ulcer with adherent clot s/p injection of dilute epinephrine, snare removal of clot revealing visible vessel, snare removal of misplaced clips and complete closure with hemostatic clip. 3 mm polyp in the transverse colon s/p cold snare. Internal hemorrhoids. 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; s/p chordal rupture Status: Chronic (3) History of dental surgery Status: Chronic (4) History of mandibular surgery Status: Chronic (5) S/P cholecystectomy Status: Chronic (6) S/P ERCP Status: Chronic Family History Diabetes mellitus SISTER Social History Smoking Status: Never Smoker Alcohol Use: none Marital Status: Housing status: lives with significant other Multi-Drug Resistant Organisms History of MDRO: No Allergies Coded Allergies: Allopurinol (Unverified Allergy, Unknown, COUGH, 03/22/17) Lisinopril (Verified Adverse Reaction, Unknown, COUGH, 03/22/17) Home Medications Scheduled Losartan Potassium (Cozaar), 100 MG PO DAILY Verapamil (Calan), 120 MG PO BID Warfarin Sod (Coumadin), 2.5 MG PO 3XWK Warfarin Sodium (Warfarin Sodium), 1 TAB PO 4XWK Scheduled PRN Furosemide (Furosemide), 20 MG PO HS PRN for edema Potassium Chloride (K-Tab), 20 MEQ PO UD PRN for with furosemide Review of Systems ROS per HPI, all other systems reviewed and negative Physical Exam Vital Signs Date Time Temp Pulse Resp B/P (MAP) Pulse Ox O2 Delivery O2 Flow Rate FiO2 04/06/17 19:21 36.9 76 20 190/103 Room Air 04/06/17 18:02 79 20 178/84 94 04/06/17 15:54 60 16 179/102 94 Room Air 04/06/17 14:52 97 Room Air 04/06/17 14:04 59 04/06/17 13:31 36.9 70 20 100 Room Air General Appearance: WD/WN, no apparent distress Head: normocephalic, atraumatic Eyes: normal inspection, EOMI, sclerae normal ENT: hearing grossly normal, + pertinent finding (mucous membranes moist) Neck: supple, no JVD, trachea midline Respiratory/Chest: no respiratory distress, + decreased breath sounds Cardiovascular: normal peripheral pulses, + irregularly irregular (normal rate) Abdomen/GI: normal bowel sounds, non tender, soft, no organomegaly Extremities/Musculoskelatal: + swelling (to right distal thigh and extending over the knee; tissues remain soft, distal pulses intact) Neurologic/Psych: no motor/sensory deficits, alert, normal mood/affect, oriented x 3 Skin: warm/dry, + pertinent finding (ecchymosis noted to right thigh and over right knee) Diagnostics Laboratory Results Results Past 24 Hours Test 04/06/17 14:25 04/06/17 14:35 04/06/17 21:03 Range/Units Prothrombin Time 68.3 9.0-12.0 SECONDS Prothromb Time International Ratio 6.8 0.9-1.1 Activated Partial Thromboplast Time 50.3 21.0-31.0 SECONDS Partial Thromboplastin Ratio 1.9 Sodium Level 139 136-145 mmol/L Potassium Level 3.7 3.5-5.1 mmol/L Chloride Level 104 98-107 mmol/L Carbon Dioxide Level 31 21-32 mmol/L Anion Gap 4.0 3-11 mmol/L Blood Urea Nitrogen 15 7-18 mg/dl Creatinine 1.13 0.60-1.40 mg/dl Est Creatinine Clear Calc Drug Dose 71.2 ml/min Estimated GFR () 72.3 Estimated GFR (Non- 62.4 BUN/Creatinine Ratio 13.2 10-20 Random Glucose 129 70-99 mg/dl Calcium Level 8.2 8.5-10.1 mg/dl Total Bilirubin 1.4 0.2-1 mg/dl Aspartate Amino Transf (AST/SGOT) 19 15-37 U/L Alanine Aminotransferase (ALT/SGPT) 17 12-78 U/L Alkaline Phosphatase 116 45-117 U/L Troponin I < 0.015 0-0.045 ng/ml Pro-B-Type Natriuretic Peptide 881 0-1800 pg/ml Total Protein 7.2 6.4-8.2 gm/dl Albumin 3.5 3.4-5.0 gm/dl Globulin 3.7 2.5-4.0 gm/dl Albumin/Globulin Ratio 0.9 0.9-2 Chemistry Specimen Hemolysis White Blood Count 5.41 4.8-10.8 K/uL Red Blood Count 3.86 4.7-6.1 M/uL Hemoglobin 11.9 14.0-18.0 g/dL Hematocrit 36.6 42-52 % Mean Corpuscular Volume 94.8 80-100 fL Mean Corpuscular Hemoglobin 30.8 25-34 pg Mean Corpuscular Hemoglobin Concent 32.5 32-36 g/dl Platelet Count 161 130-400 K/uL Mean Platelet Volume 9.9 7.4-10.4 fL Neutrophils (%) (Auto) 78.9 % Lymphocytes (%) (Auto) 10.7 % Monocytes (%) (Auto) 9.1 % Eosinophils (%) (Auto) 1.1 % Basophils (%) (Auto) 0.0 % Neutrophils # (Auto) 4.27 1.4-6.5 K/uL Lymphocytes # (Auto) 0.58 1.2-3.4 K/uL Monocytes # (Auto) 0.49 0.11-0.59 K/uL Eosinophils # (Auto) 0.06 0-0.5 K/uL Basophils # (Auto) 0.00 0-0.2 K/uL RDW Standard Deviation 50.9 36.4-46.3 fL RDW Coefficient of Variation 14.8 11.5-14.5 % Immature Granulocyte % (Auto) 0.2 % Immature Granulocyte # (Auto) 0.01 0.00-0.02 K/uL Diagnostic Radiology CXR IMPRESSION: Cardiomegaly. No evidence of focal pulmonary consolidation RIGHT KNEE XR IMPRESSION: 1. Moderate osteoarthritic change 2. Joint effusion 3. No acute fractures RIGHT THIGH US IMPRESSION: 1. There is no sonographic evidence of deep venous thrombosis identified in the right lower extremity. 2. There are 2 complex fluid collections identified in the distal thigh as above, likely representing hematomas. The larger collection has increased in size from 03/22/2017. Clinical correlation will be essential. Clinical follow-up to resolution is recommended. Impression Assessment and Plan RIGHT THIGH HEMATOMA COUMADIN COAGULOPATHY - admit to med/surg - patient presenting to ED by request of PCP for evaluation of elevated INR and right thigh hematoma; patient underwent right knee injection ~ 2 weeks ago and developed subsequent swelling, he has been evaluated by Dr. Daniel as an outpatient - had an US on 03/22 that measured the hematoma to be 7 x 4 x 2 cm; today US shows mid to distal thigh fluid collection 14 x 2 x 6 cm and lateral distal thigh measuring 12 x 3 x 7 cm - no signs of compartment syndrome - ortho consult - hgb 14.5 03/22 -> 11.9 today - INR 6.8 today - case discussed with Dr. Romero; given that patient is very high risk for thrombosis (mechanical mitral valve and history of CVA with subtherapeutic INR) , will gently reverse with Vitamin K 2.5mg PO CHRONIC ATRIAL FIBRILLATION - continue verapamil for rate control - Coumadin as above HTN - BP controlled, continue Losartan HX CVA - in the setting of subtherapeutic INR - Coumadin as above DVT PROPHYLAXIS - currently has supra therapeutic INR DISPO - In my clinical judgment this beneficiary meets acute admission criteria, established by [facility], that includes being hospitalized through two midnights. ATTENDING ADDENDUM ; pt seen and examined, care co ordinated with Sejal VEE 76 yo M hx of Afib , multiple CVA -no residual neurological deficit . s/p Mechanical Mitral valve replacement on 1994 on Coumadin developed large L ant thigh hematoma after recent Left knee injection INR 6.9 Hb remains stable pt admitted to Med/surg given low dose vit K for coagulopathy ; hold Coumadin now -will be resumed when INR < 3.5 goal INR 2.5-3.5 ( Mechanical valve ) follow H&H Ortho consulted for eval please refer to documentation by Sejal VEE for further discussion of other issues Sara Cantrell MD Advanced Directives Existing Living Will: Yes Existing Power of Tools Developer: Yes VTE Prophylaxis VTE Risk Assessment Done? Y/N: Yes Risk Level: Moderate
[2017-04-06] MEDS: VERAPAMIL HCL 40 MG TAB PO SCH (22:00)
[2017-04-06 22:05] VITALS: O2SAT 94
[2017-04-06] MEDS: LOSARTAN POTASSIUM 50 MG TAB PO SCH (22:10)
[2017-04-06] MEDS: HYDROmorphone INJ 0.5 MG/0.5 ML SYR IV PRN (22:15)
[2017-04-06 22:39] VITALS: BP 166/95; PULSE 76
[2017-04-06 22:55] VITALS: BP 166/90; PULSE 76; TEMP 37.1; O2SAT 91
[2017-04-07] MEDS: HYDROmorphone INJ 0.5 MG/0.5 ML SYR IV PRN ×3 (02:13→13:36)
[2017-04-07 07:53] VITALS: BP 144/87; PULSE 55; TEMP 37.1; O2SAT 93
[2017-04-07 08:02] LABS: HEMOGLOBIN 10.9 g/dL (14.0-18.0); MEAN CELL VOLUME 95.8 fL (80-100); MEAN CORPUSCULAR HEMOGLOBIN 30.7 pg (25-34); MEAN CORPUSCULAR HGB CONC 32.1 g/dl (32-36); PLATELET COUNT 149 K/uL (130-400); RED CELL DISTRIBUTION WIDTH SD 52.8 fL (36.4-46.3)
--- NOTE | 2017-04-07 08:11 | Clinical Documentation Query ---
QUERY 1 OF [address] CALDERÓN, In your clinical opinion is this patient being managed for: ( ) Hematoma likely due to anticoagulation therapy in the setting of recent R knee injection ( ) Not Agree ( ) Other explanation of clinical findings (Please Explain) ( + ) Unable to determine (Please Define) ( ) Need to Discuss Cannot definitely tell that the Hematomas are due to the procedure but complicated by high INR The medical record reflects the following clinical findings, treatment, and risk factors. Clinical Indicators: 76 yo male presenting with R thigh hematoma. INR 6.8. Treatment: vitamin K, hold Coumadin, orthopedic consult Risk Factors: chronic coumadin therapy, recent R knee injection QUERY 2 OF 2 In your clinical opinion is this patient being managed for: ( +) Chronic diastolic CHF ( ) Not Agree ( ) Other explanation of clinical findings (Please Explain) ( ) Unable to determine (Please Define) ( ) Need to Discuss The medical record reflects the following clinical findings, treatment, and risk factors. Clinical Indicators: Past medical history includes CHF. Review of ECHO from 03/2016 showed EF 55-60% Treatment: chronic meds include lasix, cozaar, calan. Risk Factors: age, A fib, HTN Please clarify and document your clinical opinion in the progress notes and discharge summary. Terms such as "probable", "suspected", "likely", "questionable", "possible", or "still to be ruled out" are acceptable. IF IN AGREEMENT, YOU MUST DOCUMENT ABOVE DIAGNOSTIC STATEMENT IN DAILY PROGRESS NOTES AND DISCHARGE SUMMARY. This document is not part of the patient's record. Thank You, Radha Resendiz, RN [phone]
[2017-04-07 08:17] LABS: INR 3.7 (0.9-1.1)
[2017-04-07 08:21] LABS: CALCIUM 8.5 mg/dl (8.5-10.1); CREATININE 1.13 mg/dl (0.60-1.40); POTASSIUM 3.8 mmol/L (3.5-5.1)
[2017-04-07] MEDS: VERAPAMIL HCL 40 MG TAB PO SCH ×2 (08:53→21:18)
[2017-04-07] MEDS ORDERED: LOSARTAN POTASSIUM 50 MG TAB PO SCH (09:00)
[2017-04-07] MEDS: ALBUT/IPRATROP 3MG/0.5MG NEB 3 ML VIAL INH PRN ×2 (12:16→21:17)
[2017-04-07 12:17] VITALS: PULSE 51; O2SAT 96
--- NOTE | 2017-04-07 12:17 | Progress Note ---
Internal Med Progress Note Date of Service: Apr 07, 2017. Provider Documentation: SUBJECTIVE: The patient was seen and examined Has had Injection right Knee joint 2 weeks ago Has been under care of Ortho and PCP for the Hematoma as an OP Increasing pain and swelling for the last day or two OBJECTIVE: Vital Signs-as noted below Exam: General-Minimal distress at rest Eyes-normal ENT-normal Neck-Supple Lungs-Minimal Wheezing anteriorly No crackles Heart-Irregular,mechanical valve sound Abdomen-Benign Extremities-Swelling of the right leg ,more distal thigh and around the Knee Clinically moderate amount of fluid in Knee joint Moderate tenderness lower right thigh Neuro-AAOx3 Lab data as noted below. ASSESSMENT & PLAN: RIGHT THIGH HEMATOMA COUMADIN COAGULOPATHY - patient presenting to ED by request of PCP for evaluation of elevated INR and right thigh hematoma; patient underwent right knee injection ~ 2 weeks ago and developed subsequent swelling, he has been evaluated by Dr. Daniel as an outpatient - had an US on 03/22 that measured the hematoma to be 7 x 4 x 2 cm; today US shows mid to distal thigh fluid collection 14 x 2 x 6 cm and lateral distal thigh measuring 12 x 3 x 7cm - no signs of compartment syndrome - Hgb 14.5 03/22 -> 11.9 today - INR 6.8 today - case discussed with Dr. Romero; given that patient is very high risk for thrombosis (mechanical mitral valve and history of CVA with subtherapeutic INR) , will gently reverse with Vitamin K 2.5mg PO -INR 3.7 today and increase in swelling and clinically no increase in Pain -will observe -Ortho consulted CHRONIC ATRIAL FIBRILLATION -May have Chronic Diastolic Heart failure - continue verapamil for rate control - Coumadin as above -no need to acutely reverse the anticoagulation given the Mechanical Mitral valve -No acute fluid overload HTN - BP controlled, continue Losartan HX CVA - in the setting of subtherapeutic INR - Coumadin as above DVT PROPHYLAXIS - currently has supra therapeutic INR -INR 3.7 DISPO Awiated Vital Signs: Date Time Temp Pulse Resp B/P (MAP) Pulse Ox O2 Delivery O2 Flow Rate FiO2 04/07/17 07:53 37.1 55 18 144/87 (106) 93 Room Air 04/07/17 07:45 Room Air 04/06/17 23:15 Room Air 04/06/17 22:55 37.1 76 18 166/90 (115) 91 Room Air 04/06/17 22:39 76 166/95 (118) 04/06/17 22:05 94 Room Air 04/06/17 21:28 74 16 94 Room Air 04/06/17 19:21 36.9 76 20 190/103 Room Air 04/06/17 18:02 79 20 178/84 94 04/06/17 15:54 60 16 179/102 94 Room Air 04/06/17 14:52 97 Room Air 04/06/17 14:04 59 04/06/17 13:31 36.9 70 20 100 Room Air Lab Results: Results Past 24 Hours Test 04/06/17 14:25 04/06/17 14:35 04/06/17 21:03 04/07/17 07:39 Range/Units Prothrombin Time 68.3 37.5 9.0-12.0 SECONDS Prothromb Time International Ratio 6.8 3.7 0.9-1.1 Activated Partial Thromboplast Time 50.3 21.0-31.0 SECONDS Partial Thromboplastin Ratio 1.9 Sodium Level 139 138 136-145 mmol/L Potassium Level 3.7 3.8 3.5-5.1 mmol/L Chloride Level 104 103 98-107 mmol/L Carbon Dioxide Level 31 28 21-32 mmol/L Anion Gap 4.0 7.0 3-11 mmol/L Blood Urea Nitrogen 15 15 7-18 mg/dl Creatinine 1.13 1.13 0.60-1.40 mg/dl Est Creatinine Clear Calc Drug Dose 71.2 71.2 ml/min Estimated GFR () 72.3 72.3 Estimated GFR (Non- 62.4 62.4 BUN/Creatinine Ratio 13.2 12.8 10-20 Random Glucose 129 124 70-99 mg/dl Calcium Level 8.2 8.5 8.5-10.1 mg/dl Total Bilirubin 1.4 0.2-1 mg/dl Aspartate Amino Transf (AST/SGOT) 19 15-37 U/L Alanine Aminotransferase (ALT/SGPT) 17 12-78 U/L Alkaline Phosphatase 116 45-117 U/L Troponin I < 0.015 0-0.045 ng/ml Pro-B-Type Natriuretic Peptide 881 0-1800 pg/ml Total Protein 7.2 6.4-8.2 gm/dl Albumin 3.5 3.4-5.0 gm/dl Globulin 3.7 2.5-4.0 gm/dl Albumin/Globulin Ratio 0.9 0.9-2 Chemistry Specimen Hemolysis White Blood Count 5.41 5.00 4.8-10.8 K/uL Red Blood Count 3.86 3.55 4.7-6.1 M/uL Hemoglobin 11.9 11.2 10.9 14.0-18.0 g/dL Hematocrit 36.6 34.2 34.0 42-52 % Mean Corpuscular Volume 94.8 95.8 80-100 fL Mean Corpuscular Hemoglobin 30.8 30.7 25-34 pg Mean Corpuscular Hemoglobin Concent 32.5 32.1 32-36 g/dl Platelet Count 161 149 130-400 K/uL Mean Platelet Volume 9.9 10.0 7.4-10.4 fL Neutrophils (%) (Auto) 78.9 % Lymphocytes (%) (Auto) 10.7 % Monocytes (%) (Auto) 9.1 % Eosinophils (%) (Auto) 1.1 % Basophils (%) (Auto) 0.0 % Neutrophils # (Auto) 4.27 1.4-6.5 K/uL Lymphocytes # (Auto) 0.58 1.2-3.4 K/uL Monocytes # (Auto) 0.49 0.11-0.59 K/uL Eosinophils # (Auto) 0.06 0-0.5 K/uL Basophils # (Auto) 0.00 0-0.2 K/uL RDW Standard Deviation 50.9 52.8 36.4-46.3 fL RDW Coefficient of Variation 14.8 15.0 11.5-14.5 % Immature Granulocyte % (Auto) 0.2 % Immature Granulocyte # (Auto) 0.01 0.00-0.02 K/uL
[2017-04-07 15:07] VITALS: BP 127/70; PULSE 55; TEMP 37.1; O2SAT 93
[2017-04-07] MEDS ORDERED: LIDOCAINE HCL 1% 20 ML VIAL ONE (15:20)
--- NOTE | 2017-04-07 16:05 | Orthopedic Consultation ---
Orthopedic Consultation Date of Consultation: Apr 07, 2017. Attending Physician: Kendra Baldwin M.D. Reason for Consultation: Right thigh swelling and pain. History of Present Illness Mr. Matson is a 76-year-old male with an approximately 3 week history of swelling and pain in his right knee and distal thigh area. He says that he had a knee joint injection by Dr. Medellin, his PCP at [facility], about 3 weeks ago. He noticed some bruising in his knee about 3 days later. He then noticed worsening swelling and pain in the knee. He was seen by Dr. Daniel at the [facility] [place] [place] clinic, who diagnosed him with hematoma and recommended letting it resolve on its own. He was progressively improving until yesterday. He says that yesterday morning his pain and swelling got acutely worse without any obvious injury or obvious inciting event. His pain went up to about 9 out of 10. He was then admitted to the hospital where his INR was noted to be quite high. They started INR reversal, and his pain has improved since then. He now rates it at about a 5 out of 10, although he is still having difficulty with ambulation due to the swelling and pain. Past Medical/Surgical History Medical Problems: (1) Acute kidney injury Status: Acute (2) Anemia Status: Acute (3) Anemia Status: Acute (4) Atypical chest pain Status: Acute (5) Binocular vision disorder with diplopia Status: Acute (6) Coagulopathy Status: Acute (7) CVA, old, disturbances of vision Status: Acute (8) Dehydration Status: Acute (9) Double vision with both eyes open Status: Acute (10) Effusion of knee joint right Status: Acute (11) Elevated INR Status: Acute (12) Hematoma Status: Acute (13) Hematoma of right thigh Status: Acute (14) HTN (hypertension) Status: Acute (15) Hypertension Nos Status: Chronic (16) Hypertensive urgency Status: Acute (17) Noncompliance with medication regimen Status: Acute (18) Rectal bleeding Status: Acute (19) Subtherapeutic anticoagulation Status: Acute (20) Supratherapeutic INR Status: Acute (21) Supratherapeutic INR Status: Acute (22) TIA (transient ischemic attack) Status: Acute Social History Problems: (1) Mechanical heart valve present Status: Acute Family History Diabetes mellitus SISTER Social History Smoking Status: Never Smoker Alcohol Use: none Marital Status: Housing Status: lives with family Allergies Coded Allergies: Allopurinol (Unverified Allergy, Unknown, COUGH, 03/22/17) Lisinopril (Verified Adverse Reaction, Unknown, COUGH, 03/22/17) Home Medications Scheduled Losartan Potassium (Cozaar), 100 MG PO DAILY Verapamil (Calan), 120 MG PO BID Warfarin Sod (Coumadin), 2.5 MG PO 3XWK Warfarin Sodium (Warfarin Sodium), 1 TAB PO 4XWK Scheduled PRN Furosemide (Furosemide), 20 MG PO HS PRN for edema Potassium Chloride (K-Tab), 20 MEQ PO UD PRN for with furosemide Current Inpatient Medications Current Inpatient Medications Medications (Trade) Dose Ordered Sig/Maryjane Route Start Time Stop Time Status Last Admin Dose Admin Acetaminophen (Tylenol Tab) 650 mg Q4H PRN PO 04/06/17 17:30 05/06/17 17:29 Ondansetron HCl (Zofran Inj) 4 mg Q6H PRN IV 04/06/17 17:30 05/06/17 17:29 Oxycodone/ Acetaminophen (Percocet 5-325mg Tab) 1 tab Q4H PRN PO 04/06/17 19:30 04/20/17 19:29 04/06/17 20:56 1 TAB Losartan Potassium (coZAAR TAB) 100 mg HS PO 04/06/17 21:00 05/06/17 20:59 04/06/17 22:10 100 MG Albuterol/ Ipratropium (Duoneb) 3 ml Q4R PRN INH 04/06/17 21:15 05/06/17 21:14 04/07/17 12:16 3 ML Verapamil HCl (Isoptin Tab) 120 mg BID PO 04/06/17 22:00 05/06/17 21:59 04/07/17 08:53 120 MG Hydromorphone HCl (Dilaudid Inj) 0.5 mg Q2H PRN IV 04/06/17 22:00 04/20/17 21:59 04/07/17 13:36 0.5 MG Review of Systems Constitutional: No fever, No chills, No sweats Musculoskeletal: + joint pain, + swelling, + problem reported Physical Exam Date Time Temp Pulse Resp B/P (MAP) Pulse Ox O2 Delivery O2 Flow Rate FiO2 04/07/17 15:07 37.1 55 16 127/70 (89) 93 Room Air 04/07/17 12:17 51 16 96 Room Air 04/07/17 07:53 37.1 55 18 144/87 (106) 93 Room Air 04/07/17 07:45 Room Air 04/06/17 23:15 Room Air 04/06/17 22:55 37.1 76 18 166/90 (115) 91 Room Air 04/06/17 22:39 76 166/95 (118) 04/06/17 22:05 94 Room Air 04/06/17 21:28 74 16 94 Room Air 04/06/17 19:21 36.9 76 20 190/103 Room Air 04/06/17 18:02 79 20 178/84 94 04/06/17 15:54 60 16 179/102 94 Room Air Right knee: He is noted to have scattered ecchymosis around his knee and thigh area. No erythema, warmth, or induration. He has a large focal swelling at the distal thigh and knee suprapatellar pouch area. Upon palpation, this feels like a large, tense knee joint effusion. His patella is ballotable. He has limited range of motion due to this knee joint effusion. He is able to achieve full extension, but flexion is limited to about 70. Motor and sensory exam is intact distally in the tibial and peroneal nerve distributions. Foot is warm and well perfused. General Appearance: no apparent distress Head: normocephalic, atraumatic Extremities/Musculoskelatal: normal capillary refill, + swelling Laboratory Results Last 24 Hours Test 04/06/17 21:03 04/07/17 07:39 Hemoglobin 11.2 g/dL 10.9 g/dL Hematocrit 34.2 % 34.0 % White Blood Count 5.00 K/uL Red Blood Count 3.55 M/uL Mean Corpuscular Volume 95.8 fL Mean Corpuscular Hemoglobin 30.7 pg Mean Corpuscular Hemoglobin Concent 32.1 g/dl RDW Standard Deviation 52.8 fL RDW Coefficient of Variation 15.0 % Platelet Count 149 K/uL Mean Platelet Volume 10.0 fL Prothrombin Time 37.5 SECONDS Prothromb Time International Ratio 3.7 Sodium Level 138 mmol/L Potassium Level 3.8 mmol/L Chloride Level 103 mmol/L Carbon Dioxide Level 28 mmol/L Anion Gap 7.0 mmol/L Blood Urea Nitrogen 15 mg/dl Creatinine 1.13 mg/dl Est Creatinine Clear Calc Drug Dose 71.2 ml/min Estimated GFR () 72.3 Estimated GFR (Non- 62.4 BUN/Creatinine Ratio 12.8 Random Glucose 124 mg/dl Calcium Level 8.5 mg/dl Radiology: Right knee Xrays were independently reviewed, which show moderate tricompartmental arthritis, but not fractures. Effusion noted on the lateral view. Assessment & Plan (1) Effusion of knee joint right Right knee hemarthrosis. Onset of this problem seems to be from a knee joint injection 3 weeks ago by his primary care doctor. This problem was improving until yesterday, when it got acutely worse without any obvious trauma or other inciting event. His INR was significantly elevated at 6.8, and this likely contributed. After INR reversal with vitamin K, his INR has come down to 3.7 today. However, he is quite uncomfortable with this large amount of fluid in his right knee joint, with limited flexion and difficulty with ambulation. I offered him aspiration of this large knee joint effusion for comfort. I did warn him in possible risks of aspiration, including iatrogenic infection. After thorough discussion of pros and cons, he elected to proceed. Timeout was taken to identify the right knee as the correct knee. Skin was first prepped with Betadine, and a subcutaneous anesthetic was infused with 1% lidocaine without epinephrine. I then aspirated the right knee joint via an 18-gauge needle through a superior lateral approach. 37 mL of dark blood was withdrawn from the right knee joint. This was not suspicious and therefore not sent to the lab for analysis. The patient reported immediate improvement in his knee pain after aspiration pain. I am covering Orthopedic Surgery call for Dr. Savage Carreon, who was unavailable. Haroldo Schuler MD
[2017-04-07] MEDS: LOSARTAN POTASSIUM 50 MG TAB PO SCH (21:17)
[2017-04-07 21:18] VITALS: PULSE 66; O2SAT 93
[2017-04-07 21:19] VITALS: BP 145/85; PULSE 62
[2017-04-07] MEDS ORDERED: SODIUM CHLORIDE 0.9% 1000ML 1,000 ML IV SCH (22:30)
[2017-04-07 22:54] VITALS: BP 102/61; PULSE 64; TEMP 37.3; O2SAT 91
[2017-04-08 06:59] VITALS: BP 159/77; PULSE 75; TEMP 36.4; O2SAT 95
[2017-04-08] MEDS: VERAPAMIL HCL 40 MG TAB PO SCH (07:59)
[2017-04-08 08:00] VITALS: O2SAT 95
--- NOTE | 2017-04-08 08:49 | Orthopedic Progress Note ---
Orthopedic Progress Note Date of Service Apr 08, 2017. Subjective Reports: feeling well Additional Notes: Aspirated right knee yesterday. Patient reports knee pain much improved, able to bend much better. Wants to go home. Objective calves soft nontender, N/V intact, capillary refill less than 2 sec., dressing C /D/I, A&O x3, toes mobile Still with moderate swelling in right distal thigh/knee, but less tense than yesterday. No evidence of infection. ROM now 0-90 degrees, improved since yesterday. Date Time Temp Pulse Resp B/P (MAP) Pulse Ox O2 Delivery O2 Flow Rate FiO2 04/08/17 08:00 95 Room Air 04/08/17 06:59 36.4 75 18 159/77 (104) 95 Room Air 04/08/17 00:55 Room Air 04/07/17 22:54 37.3 64 16 102/61 (75) 91 Room Air 04/07/17 21:19 62 145/85 (105) 04/07/17 21:18 66 16 93 Room Air 04/07/17 16:50 Room Air 04/07/17 15:07 37.1 55 16 127/70 (89) 93 Room Air 04/07/17 12:17 51 16 96 Room Air Laboratory Results 24 Hours: No new labs drawn today. Inquired with nurse, no new INR ordered for today. She will get in touch with Medicine team to clarify. Assessment & Plan (1) Effusion of knee joint right Right knee hemarthrosis. Pain markedly improved after aspiration yesterday. ROM improved. Nothing more to do at this point from Ortho perspective. Recommend INR recheck, and keep INR in target range to avoid reaccumulation of blood. Advised patient that it may take months for swelling to completely resolve. Advised him on what to watch for in terms of infection; he should return immediately if he has any of these symptoms. Patient wants to go home. Will sign off, call with questions. I am covering Orthopedic Surgery call for Dr. Carreon, who is unavailable. Haroldo Schuler MD
[2017-04-08 09:59] LABS: HEMATOCRIT 32.2 % (42-52); HEMOGLOBIN 10.3 g/dL (14.0-18.0); MEAN CELL VOLUME 95.5 fL (80-100); MEAN CORPUSCULAR HEMOGLOBIN 30.6 pg (25-34); MEAN PLATELET VOLUME 9.6 fL (7.4-10.4); PLATELET COUNT 147 K/uL (130-400); RED CELL DISTRIBUTION WIDTH CV 14.7 % (11.5-14.5); RED CELL DISTRIBUTION WIDTH SD 51.2 fL (36.4-46.3); WHITE BLOOD COUNT 4.14 K/uL (4.8-10.8)
[2017-04-08 10:19] LABS: INR 1.5 (0.9-1.1); PTT PATIENT 31.5 SECONDS (21.0-31.0)
[2017-04-08 11:26] VITALS: BP 159/77; PULSE 75; TEMP 36.4; O2SAT 95
--- NOTE | 2017-04-08 11:26 | Progress Note ---
Internal Med Progress Note Date of Service: Apr 08, 2017. Provider Documentation: SUBJECTIVE: The patient was seen and examined Has had Injection right Knee joint 2 weeks ago Has been under care of Ortho and PCP for the Hematoma as an OP Increasing pain and swelling for the last day or two Denies any pain Ambulating well Wants to go home OBJECTIVE: Vital Signs-as noted below Exam: General-Minimal distress at rest Eyes-normal ENT-normal Neck-Supple Lungs-Minimal Wheezing anteriorly No crackles Heart-Irregular,mechanical valve sound Abdomen-Benign Extremities-Swelling of the right leg ,more distal thigh and around the Knee Clinically moderate amount of fluid in Knee joint Moderate tenderness lower right thigh-Knee and thigh swelling improved a lot Neuro-AAOx3 Lab data as noted below. ASSESSMENT & PLAN: RIGHT THIGH HEMATOMA COUMADIN COAGULOPATHY - patient presenting to ED by request of PCP for evaluation of elevated INR and right thigh hematoma; patient underwent right knee injection ~ 2 weeks ago and developed subsequent swelling, he has been evaluated by Dr. Daniel as an outpatient - had an US on 03/22 that measured the hematoma to be 7 x 4 x 2 cm; today US shows mid to distal thigh fluid collection 14 x 2 x 6 cm and lateral distal thigh measuring 12 x 3 x 7cm - no signs of compartment syndrome - Hgb 14.5 03/22 -> 11.9 today - INR 6.8 today - case discussed with Dr. Romero; given that patient is very high risk for thrombosis (mechanical mitral valve and history of CVA with subtherapeutic INR) , will gently reverse with Vitamin K 2.5mg PO -INR 3.7 today and increase in swelling and clinically no increase in Pain -will observe -Ortho consulted -appreciate Input -s/p drainage of right knee Hemarthrosis -Hb remains stable and the patient is free from any symptoms -wants to go home CHRONIC ATRIAL FIBRILLATION -May have Chronic Diastolic Heart failure - continue verapamil for rate control - Coumadin as above -no need to acutely reverse the anticoagulation given the Mechanical Mitral valve -No acute fluid overload HTN - BP controlled, continue Losartan HX CVA - in the setting of subtherapeutic INR - Coumadin as above DVT PROPHYLAXIS - currently has supra therapeutic INR -INR 1.5 today -will start usual dose of Coumadin and discharge home DISPO Discharge home this afternoon Vital Signs: Date Time Temp Pulse Resp B/P (MAP) Pulse Ox O2 Delivery O2 Flow Rate FiO2 04/08/17 08:00 95 Room Air 04/08/17 06:59 36.4 75 18 159/77 (104) 95 Room Air 04/08/17 00:55 Room Air 04/07/17 22:54 37.3 64 16 102/61 (75) 91 Room Air 04/07/17 21:19 62 145/85 (105) 04/07/17 21:18 66 16 93 Room Air 04/07/17 16:50 Room Air 04/07/17 15:07 37.1 55 16 127/70 (89) 93 Room Air 04/07/17 12:17 51 16 96 Room Air Lab Results: Results Past 24 Hours Test 04/08/17 09:44 Range/Units White Blood Count 4.14 4.8-10.8 K/uL Red Blood Count 3.37 4.7-6.1 M/uL Hemoglobin 10.3 14.0-18.0 g/dL Hematocrit 32.2 42-52 % Mean Corpuscular Volume 95.5 80-100 fL Mean Corpuscular Hemoglobin 30.6 25-34 pg Mean Corpuscular Hemoglobin Concent 32.0 32-36 g/dl RDW Standard Deviation 51.2 36.4-46.3 fL RDW Coefficient of Variation 14.7 11.5-14.5 % Platelet Count 147 130-400 K/uL Mean Platelet Volume 9.6 7.4-10.4 fL Prothrombin Time 15.9 9.0-12.0 SECONDS Prothromb Time International Ratio 1.5 0.9-1.1 Activated Partial Thromboplast Time 31.5 21.0-31.0 SECONDS Partial Thromboplastin Ratio 1.2
--- NOTE | 2017-04-08 11:45 | Discharge Instructions ---
Discharge Instructions Date of Service Apr 08, 2017. Admission Reason for Admission: Hematoma Discharge Discharge Diagnosis / Problem: Right Knee Hemarthrosis s/p Drainage,right thigh Hematoma,high INR Discharge Goals Goal(s): Prevent Disease Progression Activity Recommendations Activity Limitations: resume your previous activity (Take it easy ) . Instructions / Follow-Up Instructions / Follow-Up PLEASE MAKE AN APPOINTMENT WITH YOUR PCP IN 1 WEE. MUST SEE COAGULATION CLINIC ON MONDAY THE Mar. Current Hospital Diet Patient's current hospital diet: AHA Diet (Heart Healthy) Discharge Diet Recommended Diet: AHA Diet (Heart Healthy) Pending Studies Studies pending at discharge: no Laboratory Results Hemoglobin A1c Test 01/25/17 12:00 Range/Units Estimated Average Glucose 123 mg/dl Hemoglobin A1c 5.9 H 4.5-5.6 % Medical Emergencies . Who to Call and When: Medical Emergencies: If at any time you feel your situation is an emergency, please call 911 immediately. . Non-Emergent Contact Non-Emergency issues call your: Primary Care Provider . Past History Medical & Surgical History: (1) Supratherapeutic INR (2) Hematoma of right thigh (3) Effusion of knee joint right (4) Atrial Fibrillation (5) Hypertension (6) Anticoagulated on warfarin (7) History of oral cancer (8) History of lower GI bleeding (9) S/P ERCP (10) History of mandibular surgery (11) History of dental surgery (12) S/P cholecystectomy (13) H/O mitral valve replacement with mechanical valve (14) H/O colonoscopy . "Provider Documentation" section prepared by Kendra Baldwin. . VTE Core Measure Inpt VTE Proph given/why not?: Warfarin (Coumadin) (WAS ON HOLD AND PARTIALLY REVERSED )
--- NOTE | 2017-04-08 17:48 | Discharge Summary ---
Discharge Summary Date of Service Apr 08, 2017. Discharge Summary Admission Date: Apr 06, 2017 at 17:27 Discharge Date: Apr 08, 2017 Discharge Disposition: Home Principal Diagnosis: Right Knee Hemarthrosis s/p Drainage,right thigh Hematoma,high INR Secondary Diagnoses/Problems: Please see H&P and Hospital progress note Consultations: Ortho Medication Reconciliation Continued Medications: Furosemide (Furosemide) 20 Mg Tab 20 MG PO HS PRN for edema Losartan Potassium (Cozaar) 100 Mg Tab 100 MG PO DAILY, TAB Potassium Chloride (K-Tab) 20 Meq Tab 20 MEQ PO UD PRN for with furosemide Verapamil (Calan) 120 Mg Tab 120 MG PO BID, TAB Warfarin Sod (Coumadin) 2.5 Mg Tab 2.5 MG PO 3XWK, TAB mon, mon, mon Warfarin Sodium (Warfarin Sodium) 5 Mg Tab 1 TAB PO 4XWK for 90 Days, TAB 1 Refill , , mon, sat Admission Information HPI (per Admitting provider): 76 year old male who was referred to the ED by his PCP for evaluation of elevated INR and right thigh hematoma. About 2 weeks ago, patient had a steroid injection of his right knee. He subsequently developed swelling in the thigh and around the knee. He was seen in the ED on 03/22 and had an US that showed a 7 x 4 x 2 cm hematoma. Patient was also evaluated by orthopedics as an outpatient for the hematoma as well. Patient is anticoagulated on Coumadin for chronic atrial fibrillation and mechanical mitral valve. Patient reports increasing swelling and pain to the right thigh. He is having difficulty walking. He denies lightheadedness, dizziness, diaphoresis, or syncopal events. No chest pain or shortness of breath. He denies abdominal pain, nausea, vomiting , and diarrhea. No fevers or chills. He denies urinary symptoms. In the ED, patient's INR is 6.8, hgb is 11.9. US shows increased size of the hematoma. Vitals are stable. Patient was noted to have significant difficulty ambulating to the bathroom due to the pain. 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 One 6 mm, recently bleeding polyp in the ascending colon. Treated with bipolar cautery. An actively bleeding ulcer at presumed polypectomy site in the ascending colon. Hemostasis established with epinephrine injection, bipolar coagulation, and placement of clips. An ulcer at presumed polypectomy site in the transverse colon. Clot removed and clips (MR conditional) were placed. Diverticulosis in the sigmoid colon. Blood in the entire examined colon. No specimens collected." Colonoscopy [facility] [place] 01/18/16- "7 mm cecal polyp s/p cold snare and clip closure. Post polypectomy ulcer with pigmented protuberance and residual polyp s/p cold snaring of residual polyp and clip closure. Post polypectomy ulcer with adherent clot s/p injection of dilute epinephrine, snare removal of clot revealing visible vessel, snare removal of misplaced clips and complete closure with hemostatic clip. 3 mm polyp in the transverse colon s/p cold snare. Internal hemorrhoids. 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; s/p chordal rupture Status: Chronic (3) History of dental surgery Status: Chronic (4) History of mandibular surgery Status: Chronic (5) S/P cholecystectomy Status: Chronic (6) S/P ERCP Status: Chronic Family History Diabetes mellitus SISTER Social History Smoking Status: Never Smoker Alcohol Use: none Marital Status: Housing status: lives with significant other Multi-Drug Resistant Organisms History of MDRO: No Allergies Coded Allergies: Allopurinol (Unverified Allergy, Unknown, COUGH, 03/22/17) Lisinopril (Verified Adverse Reaction, Unknown, COUGH, 03/22/17) Home Medications Scheduled Losartan Potassium (Cozaar), 100 MG PO DAILY Verapamil (Calan), 120 MG PO BID Warfarin Sod (Coumadin), 2.5 MG PO 3XWK Warfarin Sodium (Warfarin Sodium), 1 TAB PO 4XWK Scheduled PRN Furosemide (Furosemide), 20 MG PO HS PRN for edema Potassium Chloride (K-Tab), 20 MEQ PO UD PRN for with furosemide Review of Systems ROS per HPI, all other systems reviewed and negative Physical Ex - H&P Physical Exam Vital Signs Date Time Temp Pulse Resp B/P (MAP) Pulse Ox O2 Delivery O2 Flow Rate FiO2 04/06/17 19:21 36.9 76 20 190/103 Room Air 04/06/17 18:02 79 20 178/84 94 04/06/17 15:54 60 16 179/102 94 Room Air 04/06/17 14:52 97 Room Air 04/06/17 14:04 59 04/06/17 13:31 36.9 70 20 100 Room Air General Appearance: WD/WN, no apparent distress Head: normocephalic, atraumatic Eyes: normal inspection, EOMI, sclerae normal ENT: hearing grossly normal, + pertinent finding (mucous membranes moist) Neck: supple, no JVD, trachea midline Respiratory/Chest: no respiratory distress, + decreased breath sounds Cardiovascular: normal peripheral pulses, + irregularly irregular (normal rate) Abdomen/GI: normal bowel sounds, non tender, soft, no organomegaly Extremities/Musculoskelatal: + swelling (to right distal thigh and extending over the knee; tissues remain soft, distal pulses intact) Neurologic/Psych: no motor/sensory deficits, alert, normal mood/affect, oriented x 3 Skin: warm/dry, + pertinent finding (ecchymosis noted to right thigh and over right knee) Diagnostics - H&P Diagnostics Laboratory Results Results Past 24 Hours Test 04/06/17 14:25 04/06/17 14:35 04/06/17 21:03 Range/Units Prothrombin Time 68.3 9.0-12.0 SECONDS Prothromb Time International Ratio 6.8 0.9-1.1 Activated Partial Thromboplast Time 50.3 21.0-31.0 SECONDS Partial Thromboplastin Ratio 1.9 Sodium Level 139 136-145 mmol/L Potassium Level 3.7 3.5-5.1 mmol/L Chloride Level 104 98-107 mmol/L Carbon Dioxide Level 31 21-32 mmol/L Anion Gap 4.0 3-11 mmol/L Blood Urea Nitrogen 15 7-18 mg/dl Creatinine 1.13 0.60-1.40 mg/dl Est Creatinine Clear Calc Drug Dose 71.2 ml/min Estimated GFR () 72.3 Estimated GFR (Non- 62.4 BUN/Creatinine Ratio 13.2 10-20 Random Glucose 129 70-99 mg/dl Calcium Level 8.2 8.5-10.1 mg/dl Total Bilirubin 1.4 0.2-1 mg/dl Aspartate Amino Transf (AST/SGOT) 19 15-37 U/L Alanine Aminotransferase (ALT/SGPT) 17 12-78 U/L Alkaline Phosphatase 116 45-117 U/L Troponin I < 0.015 0-0.045 ng/ml Pro-B-Type Natriuretic Peptide 881 0-1800 pg/ml Total Protein 7.2 6.4-8.2 gm/dl Albumin 3.5 3.4-5.0 gm/dl Globulin 3.7 2.5-4.0 gm/dl Albumin/Globulin Ratio 0.9 0.9-2 Chemistry Specimen Hemolysis White Blood Count 5.41 4.8-10.8 K/uL Red Blood Count 3.86 4.7-6.1 M/uL Hemoglobin 11.9 14.0-18.0 g/dL Hematocrit 36.6 42-52 % Mean Corpuscular Volume 94.8 80-100 fL Mean Corpuscular Hemoglobin 30.8 25-34 pg Mean Corpuscular Hemoglobin Concent 32.5 32-36 g/dl Platelet Count 161 130-400 K/uL Mean Platelet Volume 9.9 7.4-10.4 fL Neutrophils (%) (Auto) 78.9 % Lymphocytes (%) (Auto) 10.7 % Monocytes (%) (Auto) 9.1 % Eosinophils (%) (Auto) 1.1 % Basophils (%) (Auto) 0.0 % Neutrophils # (Auto) 4.27 1.4-6.5 K/uL Lymphocytes # (Auto) 0.58 1.2-3.4 K/uL Monocytes # (Auto) 0.49 0.11-0.59 K/uL Eosinophils # (Auto) 0.06 0-0.5 K/uL Basophils # (Auto) 0.00 0-0.2 K/uL RDW Standard Deviation 50.9 36.4-46.3 fL RDW Coefficient of Variation 14.8 11.5-14.5 % Immature Granulocyte % (Auto) 0.2 % Immature Granulocyte # (Auto) 0.01 0.00-0.02 K/uL Diagnostic Radiology CXR IMPRESSION: Cardiomegaly. No evidence of focal pulmonary consolidation RIGHT KNEE XR IMPRESSION: 1. Moderate osteoarthritic change 2. Joint effusion 3. No acute fractures RIGHT THIGH US IMPRESSION: 1. There is no sonographic evidence of deep venous thrombosis identified in the right lower extremity. 2. There are 2 complex fluid collections identified in the distal thigh as above, likely representing hematomas. The larger collection has increased in size from 03/22/2017. Clinical correlation will be essential. Clinical follow-up to resolution is recommended. Impression - H&P Impression Assessment and Plan RIGHT THIGH HEMATOMA COUMADIN COAGULOPATHY - admit to med/surg - patient presenting to ED by request of PCP for evaluation of elevated INR and right thigh hematoma; patient underwent right knee injection ~ 2 weeks ago and developed subsequent swelling, he has been evaluated by Dr. Daniel as an outpatient - had an US on 03/22 that measured the hematoma to be 7 x 4 x 2 cm; today US shows mid to distal thigh fluid collection 14 x 2 x 6 cm and lateral distal thigh measuring 12 x 3 x 7 cm - no signs of compartment syndrome - ortho consult - hgb 14.5 03/22 -> 11.9 today - INR 6.8 today - case discussed with Dr. Romero; given that patient is very high risk for thrombosis (mechanical mitral valve and history of CVA with subtherapeutic INR) , will gently reverse with Vitamin K 2.5mg PO CHRONIC ATRIAL FIBRILLATION - continue verapamil for rate control - Coumadin as above HTN - BP controlled, continue Losartan HX CVA - in the setting of subtherapeutic INR - Coumadin as above DVT PROPHYLAXIS - currently has supra therapeutic INR DISPO - In my clinical judgment this beneficiary meets acute admission criteria, established by [facility], that includes being hospitalized through two midnights. ATTENDING ADDENDUM ; pt seen and examined, care co ordinated with Sejal VEE 76 yo M hx of Afib , multiple CVA -no residual neurological deficit . s/p Mechanical Mitral valve replacement on 1994 on Coumadin developed large L ant thigh hematoma after recent Left knee injection INR 6.9 Hb remains stable pt admitted to Med/surg given low dose vit K for coagulopathy ; hold Coumadin now -will be resumed when INR < 3.5 goal INR 2.5-3.5 ( Mechanical valve ) follow H&H Ortho consulted for eval please refer to documentation by Sejal VEE for further discussion of other issues Sara Cantrell MD Advanced Directives Existing Living Will: Yes Existing Power of Communications Equipment Supervisor: Yes VTE Prophylaxis VTE Risk Assessment Done? Y/N: Yes Risk Level: Moderate Physical Exam (per Admitting): General Appearance: WD/WN, no apparent distress Head: normocephalic, atraumatic Eyes: normal inspection, EOMI, sclerae normal ENT: hearing grossly normal, + pertinent finding (mucous membranes moist) Neck: supple, no JVD, trachea midline Respiratory/Chest: no respiratory distress, + decreased breath sounds Cardiovascular: normal peripheral pulses, + irregularly irregular (normal rate) Abdomen/GI: normal bowel sounds, non tender, soft, no organomegaly Extremities/Musculoskelatal: + swelling (to right distal thigh and extending over the knee; tissues remain soft, distal pulses intact) Neurologic/Psych: no motor/sensory deficits, alert, normal mood/affect, oriented x 3 Skin: warm/dry, + pertinent finding (ecchymosis noted to right thigh and over right knee) Hospital Course RIGHT THIGH HEMATOMA COUMADIN COAGULOPATHY - patient presenting to ED by request of PCP for evaluation of elevated INR and right thigh hematoma; patient underwent right knee injection ~ 2 weeks ago and developed subsequent swelling, he has been evaluated by Dr. Daniel as an outpatient - had an US on 03/22 that measured the hematoma to be 7 x 4 x 2 cm; today US shows mid to distal thigh fluid collection 14 x 2 x 6 cm and lateral distal thigh measuring 12 x 3 x 7cm - no signs of compartment syndrome - Hgb 14.5 03/22 -> 11.9 today - INR 6.8 today - case discussed with Dr. Romero; given that patient is very high risk for thrombosis (mechanical mitral valve and history of CVA with subtherapeutic INR) , will gently reverse with Vitamin K 2.5mg PO -INR 3.7 today and increase in swelling and clinically no increase in Pain -will observe -Ortho consulted -appreciate Input -s/p drainage of right knee Hemarthrosis -Hb remains stable and the patient is free from any symptoms -wants to go home CHRONIC ATRIAL FIBRILLATION -May have Chronic Diastolic Heart failure - continue verapamil for rate control - Coumadin as above -no need to acutely reverse the anticoagulation given the Mechanical Mitral valve -No acute fluid overload HTN - BP controlled, continue Losartan HX CVA - in the setting of subtherapeutic INR - Coumadin as above DVT PROPHYLAXIS - currently has supra therapeutic INR -INR 1.5 today -will start usual dose of Coumadin and discharge home DISPO Discharge home this afternoon Total time spent on discharge = 35 minutes This includes examination of the patient, discharge planning, medication reconciliation, and communication with other providers. Discharge Instructions Date of Service Apr 08, 2017. Admission Reason for Admission: Hematoma Discharge Discharge Diagnosis / Problem: Right Knee Hemarthrosis s/p Drainage,right thigh Hematoma,high INR Discharge Goals Goal(s): Prevent Disease Progression Activity Recommendations Activity Limitations: resume your previous activity (Take it easy ) . Instructions / Follow-Up Instructions / Follow-Up PLEASE MAKE AN APPOINTMENT WITH YOUR PCP IN 1 WE. MUST SEE COAGULATION CLINIC ON MONDAY THE Mar. Current Hospital Diet Patient's current hospital diet: AHA Diet (Heart Healthy) Discharge Diet Recommended Diet: AHA Diet (Heart Healthy) Pending Studies Studies pending at discharge: no Laboratory Results Hemoglobin A1c Test 01/25/17 12:00 Range/Units Estimated Average Glucose 123 mg/dl Hemoglobin A1c 5.9 H 4.5-5.6 % Medical Emergencies . Who to Call and When: Medical Emergencies: If at any time you feel your situation is an emergency, please call 911 immediately. . Non-Emergent Contact Non-Emergency issues call your: Primary Care Provider . Past History Medical & Surgical History: (1) Supratherapeutic INR (2) Hematoma of right thigh (3) Effusion of knee joint right (4) Atrial Fibrillation (5) Hypertension (6) Anticoagulated on warfarin (7) History of oral cancer (8) History of lower GI bleeding (9) S/P ERCP (10) History of mandibular surgery (11) History of dental surgery (12) S/P cholecystectomy (13) H/O mitral valve replacement with mechanical valve (14) H/O colonoscopy . "Provider Documentation" section prepared by Kendra Baldwin. . VTE Core Measure Inpt VTE Proph given/why not?: Warfarin (Coumadin) (WAS ON HOLD AND PARTIALLY REVERSED ) <Electronically signed by Kendra Baldwin M.D.> Signed: 04/08/17 1145 Additional Copies To Cosme Medellin PA-C
== END 2017-04-08 12:01 | disposition home or self-care (01) | DRG 813 ==
LOC: C.EDB 13:24 → C.MSN 17:27 → EDBEDREQSVC 17:32 → ENRESERV 17:43
PROVIDERS: ADMIT Hospitalist; ATTEND Internal Medicine
PROC: 0S9C3ZZ Drainage of Right Knee Joint, Percutaneous Approach (ICD-10-PCS; principal; 2017-04-07)
DX: D68.32 Hemorrhagic disorder due to extrinsic circulating anticoagulants (principal); M25.061 Hemarthrosis, right knee; M96.840 Postprocedural hematoma of a musculoskeletal structure following a musculoskeletal system procedure; I50.32 Chronic diastolic (congestive) heart failure; I48.2 Chronic atrial fibrillation; I11.0 Hypertensive heart disease with heart failure; Z95.2 Presence of prosthetic heart valve; Z86.73 Personal history of transient ischemic attack (TIA), and cerebral infarction without residual deficits; Z79.01 Long term (current) use of anticoagulants; Z88.8 Allergy status to other drugs, medicaments and biological substances; Z83.3 Family history of diabetes mellitus

== ENCOUNTER 2017-06-06 10:02 | Emergency (ER) | payer OTHER, BC ==
[~2017-06-06] VITALS: Ht 185.4 cm; Wt 110.0 kg
[~2017-06-06 10:02] MED LIST changes: +CMD/25 PO; -OXYC1TAB3 PO; +WARF-246 PO; -WARF5TAB90 PO
[2017-06-06 10:06] VITALS: Ht 185.4 cm; Wt 110.0 kg
--- NOTE | 2017-06-06 11:02 | DIAGNOSTIC IMAGING REPORT ---
CHEST ONE VIEW PORTABLE CLINICAL HISTORY: Chest pain. COMPARISON STUDY: Chest radiograph April 06, 2017. FINDINGS: There are median sternotomy wires. No pneumothorax or pleural effusion is noted. There is no consolidation or evidence of pulmonary edema. Moderate cardiomegaly is unchanged. The appearance of the chest is unchanged. IMPRESSION: 1. No acute cardiopulmonary findings. 2. Stable moderate cardiomegaly. Electronically signed by: Hu Barlow M.D. 06/06/2017 11:00 AM Dictated Date/Time: 06/06/2017 11:00 AM
--- NOTE | 2017-06-06 11:04 | EMERGENCY ROOM VISIT NOTE ---
History First contact with patient: 10:22 Chief Complaint: CHEST PAIN Stated Complaint: CHEST PAIN Nursing Triage Summary: Chest pain "exactly right in the heart". Pain began yesterday and he was engaged in "normal stuff". He relates that he went to bed and he woke this morning and it continued. Pain is sharp and intermittent. He denies shortness of breath. Did not take his bp med today History of Present Illness The patient is a 76 year old male with hx of HTN, and mechanical MV who presents to the Emergency Room with complaints of L sided chest pain since yesterday afternoon. Pain described as intermittent, sharp, 5/10. Pain does not radiate to back, shoulder or L arm and non-exertional. Pain started when engaged in routine activities of daily living. Pt went to bed hoping it would go away but pain continued this AM . Denies any sob, palpitations, n/v, dizziness or abdominal pain. Pt reports similar chest pain in the past. Pt sees cosmetic dentist Dr. Milan and reports a normal ECHO earlier this year. Pt takes coumadin for mechanical valve and also on Losartan, Verapamil for BP and Lasix for LE venous stasis. Review of Systems see below Constitutional: No fever Respiratory: No shortness of breath Cardiovascular: + chest pain Abdomen: No pain, No nausea, No vomiting, No diarrhea, No constipation Genitourinary - Male: No dysuria Past Medical/Surgical History Medical Problems: (1) Anticoagulated on warfarin (2) Atrial Fibrillation (3) Cerebrovascular disease (4) Chronic pulmonary aspiration (5) Hematoma (6) History of lower GI bleeding (7) History of oral cancer (8) Hypertension (9) Hypertension Nos (10) Tinnitus Nos Surgical Problems: (1) H/O colonoscopy (2) H/O mitral valve replacement with mechanical valve (3) History of dental surgery (4) History of mandibular surgery (5) S/P cholecystectomy (6) S/P ERCP Family History Diabetes mellitus SISTER Social History Smoking Status: Never Smoker Alcohol Use: none Marital Status: Housing Status: lives with family Current/Historical Medications Scheduled Losartan Potassium (Cozaar), 100 MG PO DAILY Verapamil (Calan), 120 MG PO BID Warfarin Sod (Coumadin), 2.5 MG PO 3XWK Warfarin Sodium (Warfarin Sodium), 1 TAB PO 4XWK Scheduled PRN Furosemide (Furosemide), 20 MG PO HS PRN for edema Potassium Chloride (K-Tab), 20 MEQ PO UD PRN for with furosemide Physical Exam Vital Signs Date Time Temp Pulse Resp B/P (MAP) Pulse Ox O2 Delivery O2 Flow Rate FiO2 06/06/17 10:06 36.3 72 20 179/85 98 Room Air Physical Exam see below General Appearance: no apparent distress Head: normocephalic, atraumatic Eyes: normal inspection ENT: normal ENT inspection Neck: supple Respiratory/Chest: chest non-tender, lungs clear, normal breath sounds Cardiovascular: regular rate, rhythm, no murmur Abdomen / GI: normal bowel sounds, non tender, soft Extremities: no calf tenderness, + swelling (3+ RLE pretibial edema and 2+ LLE pretibial edema with chronic venous stasis skin changes) Medical Decision & Procedures Laboratory Results Medical Decision 76y/oM with hx of HTN, and MV mechanical valve presents with recurrent L sided intermitted sharp chest pain x 1 day with no associated symptoms or radiation. Given history and exam findings, concerning for possible DC vs. stable angina vs. Afib vs. GERD vs. costochondritis -ordered POC istat with BMP, BNP, H/H, Troponin -ordered EKG - poor quality unable to appreciate p waves, rate 75, irregular rhythm (EKG in [facility] in [place] consistent with Afib) -ordered CXR - no acute cardiopulmonary abnormality and stable moderate cardiomegaly PLEASE REFER TO DR. CASTILLO'S NOTE FOR REMAINDER OF CARE Impression Primary Impression: Hypertension Additional Impression: Anticoagulated on warfarin Departure Information Referrals Cosme Medellin PA-C (PCP) Patient Instructions [facility] Problem Qualifiers
[2017-06-06 12:22] LABS: ISTAT CREATININE 1.1 mg/dl (0.6-1.3); ISTAT IONIZED CALCIUM 1.14 mmol/l (1.12-1.32); ISTAT POTASSIUM 3.6 mEq/L (3.3-5.0)
[2017-06-06 12:35] VITALS: BP 165/71
--- NOTE | 2017-06-06 12:37 | EMERGENCY ROOM VISIT NOTE ---
History Report prepared by Kimberlyn: Kristen Garces Under the Supervision of: Dr. Matteo Box D.O. First contact with patient: 10:22 Chief Complaint: CHEST PAIN Stated Complaint: CHEST PAIN Nursing Triage Summary: Chest pain "exactly right in the heart". Pain began yesterday and he was engaged in "normal stuff". He relates that he went to bed and he woke this morning and it continued. Pain is sharp and intermittent. He denies shortness of breath. Did not take his bp med today History of Present Illness The patient is a 76 year old male who presents to the Emergency Room with complaints of intermittent left chest pain starting yesterday. The pain started while he was doing routine activities. It does not radiate elsewhere. He describes the pain as sharp. He currently rates his discomfort as a 5/10 in severity. The pain is not exertional and he is able to walk without any discomfort. He denies any SOB, nausea, vomiting, dizziness, palpitations, or other symptoms. He did not take his blood pressure medications this morning. He is on Coumadin for mechanical heart valve. He follows with cardiology. He has had similar pain in the past. He had an echo earlier this year. Source of History: patient Onset: yesterday Position: chest (left) Symptom Intensity: 5/10 Quality: sharp Timing: intermittent Associated Symptoms: No SOB, No nausea, No vomiting Note: Pt denies dizziness, palpitations. Review of Systems See HPI for pertinent positives & negatives. A total of 10 systems reviewed and were otherwise negative. Past Medical & Surgical Medical Problems: (1) Anticoagulated on warfarin (2) Atrial Fibrillation (3) Cerebrovascular disease (4) Chronic pulmonary aspiration (5) Hematoma (6) History of lower GI bleeding (7) History of oral cancer (8) Hypertension (9) Hypertension Nos (10) Tinnitus Nos Surgical Problems: (1) H/O colonoscopy (2) H/O mitral valve replacement with mechanical valve (3) History of dental surgery (4) History of mandibular surgery (5) S/P cholecystectomy (6) S/P ERCP Family History Diabetes mellitus SISTER Social History Smoking Status: Never Smoker Alcohol Use: none Marital Status: Housing Status: lives with family Current/Historical Medications Scheduled Losartan Potassium (Cozaar), 100 MG PO DAILY Verapamil (Calan), 120 MG PO BID Warfarin Sod (Coumadin), 2.5 MG PO 3XWK Warfarin Sodium (Warfarin Sodium), 1 TAB PO 4XWK Scheduled PRN Furosemide (Furosemide), 20 MG PO HS PRN for edema Potassium Chloride (K-Tab), 20 MEQ PO UD PRN for with furosemide Allergies Coded Allergies: Allopurinol (Unverified Allergy, Unknown, COUGH, 06/06/17) Lisinopril (Verified Adverse Reaction, Unknown, COUGH, 06/06/17) Physical Exam Vital Signs Date Time Temp Pulse Resp B/P (MAP) Pulse Ox O2 Delivery O2 Flow Rate FiO2 06/06/17 12:38 36.3 71 22 96 Room Air 06/06/17 12:35 36.3 71 22 165/71 96 06/06/17 10:06 36.3 72 20 179/85 98 Room Air Physical Exam CONSTITUTIONAL/VITAL SIGNS: Reviewed / noted above. GENERAL: Non-toxic in appearance. INTEGUMENTARY: Warm, dry, and [place] [place] [employer]. HEAD: Normocephalic. EYES: without scleral icterus or trauma. ENT/OROPHARYNX: clear and moist. LYMPHADENOPATHY/NECK: Is supple without lymphadenopathy or meningismus. RESPIRATORY: Lungs clear and equal. CARDIOVASCULAR: Regular rate and rhythm. GI/ABDOMEN: Soft and nontender. No organomegaly or pulsatile mass. No rebound or guarding. Normal bowel sounds. EXTREMITIES: Warm and well perfused. BACK: No CVA tenderness. NEUROLOGICAL: Intact without focal deficits. PSYCHIATRIC: normal affect. MUSCULOSKELETAL: Normally developed with good muscle tone. TRIAGE NURSING DOCUMENTATION REVIEWED. Medical Decision & Procedures ER Provider Diagnostic Interpretation: X ray results and stated below per my interpretation and radiology interpretation. CHEST ONE VIEW PORTABLE CLINICAL HISTORY: Chest pain. COMPARISON STUDY: Chest radiograph April 06, 2017. FINDINGS: There are median sternotomy wires. No pneumothorax or pleural effusion is noted. There is no consolidation or evidence of pulmonary edema. Moderate cardiomegaly is unchanged. The appearance of the chest is unchanged. IMPRESSION: 1. No acute cardiopulmonary findings. 2. Stable moderate cardiomegaly. Electronically signed by: Hu Barlow M.D. 06/06/2017 11:00 AM Dictated Date/Time: 06/06/2017 11:00 AM Laboratory Results Test 06/06/17 12:07 Bedside Hemoglobin 15.3 g/dl (14.0-18.0) Bedside Hematocrit 45 % (42-52) Bedside Sodium 142 mEq/L (135-144) Bedside Potassium 3.6 mEq/L (3.3-5.0) Bedside Chloride 99 mEq/L (101-112) Bedside Total CO2 30 mEq/l (24-31) Anion Gap 17.0 mmol/L (16-25) Bedside Blood Urea Nitrogen 14 mg/dl (7-18) Bedside Creatinine 1.1 mg/dl (0.6-1.3) Bedside Glucose (other) 151 mg/dl (70-99) Bedside Ionized Calcium (Manuelito) 1.14 mmol/l (1.12-1.32) Laboratory results as stated above per my review. ECG Per My Interpretation Indication: chest pain Rate (beats per minute): 75 Rhythm: atrial fibrillation Findings: no ectopy, other (no ST elevation) ED Course 1041: Previous medical records were reviewed. The patient was evaluated in room A4B. A complete history and physical examination was performed. 1234: He was discharged home. Medical Decision the differential that was considered includes acute myocardial infarction, acute coronary syndrome, myocarditis, pericarditis, pericardial effusions / tamponade, esophageal perforation, thoracic aortic dissection, pulmonary embolism, pneumonia, pneumothorax, pancreatitis, shingles, acute cholecystitis, perforated abdominal viscus. This is a 76-year-old male who presents to the ED with a chief complaint of some sharp nonradiating random chest pain that does not seem to be associated with activity or exertion. The patient came in for evaluation of this because he was referred by his doctor. The patient's physical exam was unremarkable. The patient was seen with the resident. His initial blood pressure was elevated. His exam was normal. A 12-lead EKG shows atrial fibrillation at a rate of 75. Chest x-ray did not show acute process. Troponin came back normal , chemistries were normal as well as his hemoglobin. Outpatient follow-up recommended. The patient was felt to be stable for discharge. Medication Reconcilliation Current Medication List: was personally reviewed by me Blood Pressure Screening Patient's blood pressure: Elevated blood pressure Blood pressure disposition: Referred to PCP Impression Primary Impression: Left sided chest pain Scribe Attestation The scribe's documentation has been prepared under my direction and personally reviewed by me in its entirety. I confirm that the note above accurately reflects all work, treatment, procedures, and medical decision making performed by me. Departure Information Dispostion Home / Self-Care Referrals Cosme Medellin PA-C (PCP) Patient Instructions My [facility] Additional Instructions Follow-up with your doctor for further care and evaluation in 1-2 days. Return to the emergency department for worsening or new symptoms or any concerns. You have been examined and treated today on an emergency basis only. This is not a substitute for, or an effort to provide, complete comprehensive medical care. It is impossible to recognize and treat all injuries or illnesses in a single emergency department visit. It is therefore important that you follow up closely with your doctor. Call as soon as possible for an appointment.
[2017-06-06 12:38] VITALS: PULSE 71; TEMP 36.3; O2SAT 96
== END 2017-06-06 12:25 | disposition home or self-care (01) ==
LOC: C.EDB 10:04 → C.EDA 12:25
DX: I10 Essential (primary) hypertension (principal); Z95.2 Presence of prosthetic heart valve; Z79.01 Long term (current) use of anticoagulants; Z79.899 Other long term (current) drug therapy; I48.91 Unspecified atrial fibrillation; Z85.819 Personal history of malignant neoplasm of unspecified site of lip, oral cavity, and pharynx; Z90.49 Acquired absence of other specified parts of digestive tract; Z83.3 Family history of diabetes mellitus; Z88.8 Allergy status to other drugs, medicaments and biological substances

== ENCOUNTER → 2017-06-21 | Outpatient (CLI) | payer OTHER, BC ==
[~2017-06-21] MED LIST changes: +CMD25 PO; +ENOX100I SC; +FRRG PO; +INDO-22 PO; +MULT-890 PO; +RXC5 PO; +SENN8.6T7 PO
== END | disposition home or self-care (01) ==
LOC: C.PATHSPEC 17:40
PROVIDERS: ATTEND Orthopaedic Surgery
DX: M65.9 Synovitis and tenosynovitis, unspecified (principal)

== ENCOUNTER → 2017-06-21 | Outpatient (CLI) | payer OTHER, BC ==
[~2017-06-21] MED LIST changes: -CMD25 PO; -ENOX100I SC; -FRRG PO; -INDO-22 PO; -MULT-890 PO; -RXC5 PO; -SENN8.6T7 PO
== END | disposition home or self-care (01) ==
LOC: C.LABSPEC 17:44
PROVIDERS: ATTEND Physician Assistant
DX: M12.20 Villonodular synovitis (pigmented), unspecified site (principal)

== ENCOUNTER 2017-07-02 08:34 | Inpatient (IN) | payer OTHER, BC ==
[~2017-07-02] VITALS: Ht 182.9 cm; Wt 110.0 kg
[2017-07-02 09:08] LABS: BASO % 0.1 %; BASO ABS # 0.01 K/uL (0-0.2); EOS % 0.7 %; EOS ABS # 0.06 K/uL (0-0.5); HEMATOCRIT 27.7 % (42-52); HEMOGLOBIN 8.8 g/dL (14.0-18.0); IG# 0.02 K/uL (0.00-0.02); LYMPH % 7.4 %; LYMPH ABS # 0.61 K/uL (1.2-3.4); MEAN CELL VOLUME 91.1 fL (80-100); MEAN CORPUSCULAR HEMOGLOBIN 28.9 pg (25-34); MEAN CORPUSCULAR HGB CONC 31.8 g/dl (32-36); MEAN PLATELET VOLUME 8.8 fL (7.4-10.4); MONO % 8.6 %; MONO ABS # 0.71 K/uL (0.11-0.59); NEUT ABS # 6.87 K/uL (1.4-6.5); PLATELET COUNT 346 K/uL (130-400); RED CELL DISTRIBUTION WIDTH CV 14.5 % (11.5-14.5); WHITE BLOOD COUNT 8.28 K/uL (4.8-10.8)
[2017-07-02] MEDS ORDERED: INDO-22 PO (09:12)
[2017-07-02 09:42] LABS: INR > 10.0 (0.9-1.1); PTT PATIENT 86.5 SECONDS (21.0-31.0)
--- NOTE | 2017-07-02 09:50 | EMERGENCY ROOM VISIT NOTE ---
ED Visit Note First contact with patient: 08:41 This Patient was discussed with the physician assistant clinical nurse manager, ORQUIDEA Gross. The pertinent historical and physical exam findings were confirmed. I agree with the studies ordered and with the interpretations of these studies. I agree with the disposition and care plan.
[2017-07-02] MEDS ORDERED: PHYTONADIONE INJ 2.5 MG in SODIUM CHLORIDE 0.9% 50ML 50 ML IV ONE (10:00)
[2017-07-02 10:24] LABS: ALBUMIN 3.2 gm/dl (3.4-5.0); CALCIUM 8.4 mg/dl (8.5-10.1); CREATININE 1.29 mg/dl (0.60-1.40); POTASSIUM 2.7 mmol/L (3.5-5.1)
[2017-07-02 10:27] LABS: TOTAL PROTEIN 6.9 gm/dl (6.4-8.2)
[2017-07-02] MEDS ORDERED: ONDANSETRON INJ 2 MG/ML 2 ML VIAL IV PRN (10:45)
[2017-07-02 11:09] VITALS: O2SAT 96; Ht 182.9 cm; Wt 110.0 kg
--- NOTE | 2017-07-02 12:01 | History and Physical ---
History & Physical Date & Time of Service: July 02, 2017 at 12:00 Chief Complaint: Post Op R Knee Surgery, Bleeding At Surgery Site Primary Care Physician: Cosme Medellin PA-C History of Present Illness Source: patient This is a 77-year-old male with history of mechanical mitral valve on Coumadin/ history of A. fib/ high blood pressure /prior history of CVA with subtherapeutic INR-no neurological deficit presented to ED with complaint of painful swelling of right knee Patient was last admitted to [facility] on April 06, 2017 with right knee/thigh hematoma in the setting of elevated INR Underwent evacuation of hematoma by orthopedics Patient was seen at [facility] with Dr. Daniel approximately 3 weeks ago Has arthroscopic procedure with debridement/synovectomy of right knee joint on 06/21/17 Coumadin dose was interrupted and patient was put on Lovenox bridge for the procedure Sutures were removed last week at Dr. Daniel office For the last 1-2 days patient has been experiencing severe pain and swelling on right knee/unable to walk or bear wt Noticed bleeding from the right knee at suture site last night In the ER his lab shows INR was elevated ~10/hemoglobin 8.8 denies of any dark stool no blood in stool no complain of any fever chills no shortness of breath no dyspnea on exertion cough IV 2.5 vitamin K given in ER after discussion with anticoagulation pharmacy Dr. 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, old, disturbances of vision (12) Dehydration (13) Double vision with both eyes open (14) Effusion of knee joint right (15) Effusion of knee joint right (16) Elevated INR (17) Hemarthrosis (18) Hematoma (19) Hematoma (20) Hematoma of right thigh (21) History of lower GI bleeding (22) History of oral cancer (23) HTN (hypertension) (24) Hypertension (25) Hypertension Nos (26) Hypertensive urgency (27) Hypokalemia (28) Left sided chest pain (29) Noncompliance with medication regimen (30) Rectal bleeding (31) Subtherapeutic anticoagulation (32) Supratherapeutic INR (33) Supratherapeutic INR (34) TIA (transient ischemic attack) (35) Tinnitus Nos Surgical Problems: (1) H/O colonoscopy (2) H/O mitral valve replacement with mechanical valve (3) History of dental surgery (4) History of mandibular surgery (5) S/P cholecystectomy (6) S/P ERCP Family History Diabetes mellitus SISTER Social History Smoking Status: Never Smoker Marital Status: Housing status: lives with significant other Multi-Drug Resistant Organisms History of MDRO: No Allergies Coded Allergies: Allopurinol (Verified Allergy, Unknown, COUGH, 07/02/17) Lisinopril (Verified Adverse Reaction, Unknown, COUGH, 07/02/17) Home Medications Scheduled Losartan Potassium (Cozaar), 100 MG PO DAILY Verapamil (Calan), 120 MG PO BID Warfarin Sod (Coumadin), 2.5 MG PO 3XWK Warfarin Sodium (Warfarin Sodium), 1 TAB PO 4XWK Scheduled PRN Furosemide (Furosemide), 20 MG PO HS PRN for edema Indomethacin (Indocin), 25 MG PO TIDM PRN for GOUT Potassium Chloride (K-Tab), 20 MEQ PO UD PRN for with furosemide Review of Systems Constitutional: No fever, No chills, No sweats, No weight loss, No weakness, No fatigue, No problem reported Eyes: No worsening of vision, No eye pain, No redness, No discharge, No diplopia, No problem reported ENT: No hearing loss, No unusual epistaxis, No nasal symptoms, No sore throat, No tinnitus, No dental problems, No trouble swallowing, No problem reported Respiratory: No cough, No sputum, No wheezing, No shortness of breath, No dyspnea on exertion, No dyspnea at rest, No hemoptysis, No problem reported Cardiovascular: No chest pain, No orthopnea, No PND, No edema, No claudication , No palpitations, No problem reported Musculoskeletal: + joint pain (Right knee), + swelling (Right knee) Neurologic: No memory loss, No paralysis, No weakness, No numbness/tingling, No vertigo, No balance problems, No problem reported Endocrine: No fatigue, No excessive thirst, No excessive urination, No problem reported Physical Exam Vital Signs Date Time Temp Pulse Resp B/P (MAP) Pulse Ox O2 Delivery O2 Flow Rate FiO2 07/02/17 11:30 82 18 165/95 07/02/17 11:15 83 17 167/92 07/02/17 11:09 96 Room Air 07/02/17 11:00 79 16 168/90 96 07/02/17 10:45 75 13 172/88 96 Room Air 07/02/17 10:35 87 07/02/17 10:34 79 13 174/92 96 07/02/17 10:20 80 18 182/95 96 07/02/17 08:36 36.6 77 20 140/86 93 Room Air General Appearance: no apparent distress Head: normocephalic, atraumatic Eyes: normal inspection, PERRL, EOMI, sclerae normal Neck: thyroid normal, no carotid bruits, trachea midline Respiratory/Chest: chest non-tender, lungs clear, normal breath sounds, no respiratory distress Cardiovascular: regular rate, rhythm Abdomen/GI: normal bowel sounds, non tender, soft Extremities/Musculoskelatal: + swelling (Right knee swelling/positive tenderness/right knee suture site intact no active bleeding noted) Neurologic/Psych: no motor/sensory deficits, alert, normal mood/affect, oriented x 3 Diagnostics Laboratory Results Results Past 24 Hours Test 07/02/17 09:00 Range/Units White Blood Count 8.28 4.8-10.8 K/uL Red Blood Count 3.04 4.7-6.1 M/uL Hemoglobin 8.8 14.0-18.0 g/dL Hematocrit 27.7 42-52 % Mean Corpuscular Volume 91.1 80-100 fL Mean Corpuscular Hemoglobin 28.9 25-34 pg Mean Corpuscular Hemoglobin Concent 31.8 32-36 g/dl Platelet Count 346 130-400 K/uL Mean Platelet Volume 8.8 7.4-10.4 fL Neutrophils (%) (Auto) 83.0 % Lymphocytes (%) (Auto) 7.4 % Monocytes (%) (Auto) 8.6 % Eosinophils (%) (Auto) 0.7 % Basophils (%) (Auto) 0.1 % Neutrophils # (Auto) 6.87 1.4-6.5 K/uL Lymphocytes # (Auto) 0.61 1.2-3.4 K/uL Monocytes # (Auto) 0.71 0.11-0.59 K/uL Eosinophils # (Auto) 0.06 0-0.5 K/uL Basophils # (Auto) 0.01 0-0.2 K/uL RDW Standard Deviation 48.0 36.4-46.3 fL RDW Coefficient of Variation 14.5 11.5-14.5 % Immature Granulocyte % (Auto) 0.2 % Immature Granulocyte # (Auto) 0.02 0.00-0.02 K/uL Red Blood Cell Morphology Unremarkable Prothrombin Time > 100.0 9.0-12.0 SECONDS Prothromb Time International Ratio > 10.0 0.9-1.1 Activated Partial Thromboplast Time 86.5 21.0-31.0 SECONDS Partial Thromboplastin Ratio 3.3 Sodium Level 139 136-145 mmol/L Potassium Level 2.7 3.5-5.1 mmol/L Chloride Level 99 98-107 mmol/L Carbon Dioxide Level 34 21-32 mmol/L Anion Gap 6.0 3-11 mmol/L Blood Urea Nitrogen 25 7-18 mg/dl Creatinine 1.29 0.60-1.40 mg/dl Est Creatinine Clear Calc Drug Dose 60.5 ml/min Estimated GFR () 61.1 Estimated GFR (Non- 52.8 BUN/Creatinine Ratio 19.6 10-20 Random Glucose 164 70-99 mg/dl Calcium Level 8.4 8.5-10.1 mg/dl Total Bilirubin 1.8 0.2-1 mg/dl Aspartate Amino Transf (AST/SGOT) 18 15-37 U/L Alanine Aminotransferase (ALT/SGPT) 16 12-78 U/L Alkaline Phosphatase 198 45-117 U/L Total Protein 6.9 6.4-8.2 gm/dl Albumin 3.2 3.4-5.0 gm/dl Globulin 3.7 2.5-4.0 gm/dl Albumin/Globulin Ratio 0.9 0.9-2 Impression Assessment and Plan RIGHT KNEE HEMARTHROSIS -Recurrent episode possibly secondary to coagulopathy -Ordered for ultrasound of right lower extremity to assess size of hematoma given vitamin K 2.5 to reverse coagulopathy Orthopedic consult requested Case discussed with orthopedics Dr. Price COAGULOPATHY On Coumadin for mechanical mitral valve/Afib goal INR 2.5-3.5 follows with coag clinic at [facility] Outpatient anticoagulation regimen: Coumadin 2.5 mg on Monday/ Monday/ Monday Coumadin 5 mg all other days last lab work in clinic : 06/08/17 : INR 4.2 Per Coagulation clinic: instructed to skip Coumadin one day Then resume previous dose of 2.5 mg on MWF/5 mg all other days Next INR draw was scheduled in 2 weeks Patient had right knee arthroscopic synovectomy done by Dr. Daniel at [facility] on 06/21/2017 Lovenox bridge was adjusted by anticoagulation clinic Lovenox bridge 100 mg subcu every 12hrs first dose on 06/18/2017 last dose on 06/23 Patient was asked to take 7.5 mg Coumadin on 06/20 and 06/21 and 5 mg on 06/22 Then resume the current dose of 2.5 mg MWF and 5 mg all other days no PT /INR was checked post op Repeat PT/INR scheduled in 2 weeks after procedure presents with INR elevated more than 10/with bleeding complication of right knee hematoma Coumadin on hold 2.5 mg IV. vitamin K to given Repeat INR in afternoon Status post mechanical mitral valve placement Cannot completely reverse coagulopathy/INR requires to be more than 2.5 Given presentation of marked coagulopathy and bleeding complication patient will need more close follow-ups with anticoagulation clinic and frequent PT/ INR check ACUTE BLOOD LOSS ANEMIA Due to right knee hematoma No report of GI bleed Follow H&H closely/transfusion for hemoglobin less than 7 or associated symptom Continue to hold Coumadin CHRONIC A. 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 on Coumadin for anticoagulation with goal range of INR between 2.5-3.5 CODE STATUS: Full code DVT prophylaxis: INR elevated DISPOSITION: PT OT evaluation ordered prior to discharge social service consulted for discharge planning Patient will need close outpatient monitoring of Coumadin dose Follows with Coumadin clinic in [facility] Coumadin clinic will be updated to monitor her lab work(PT/INR) more frequently for recurrent coagulopathy/with bleeding complication Level of Care Med/Surg Advanced Directives Existing Living Will: Yes Existing Power of District Leader: Yes Resuscitation Status FULL RESUSCITATION VTE Prophylaxis Risk Level: Low Given or contraindicated: Contraindicated (INR elevated ) Additional Copies To Adryan Milan M.D.
[2017-07-02 13:11] VITALS: BP 207/98; PULSE 81; O2SAT 98
[2017-07-02] MEDS ORDERED: MoRPHine SULFATE 2 MG/ML CARP IV STA (13:13)
[2017-07-02] MEDS ORDERED: MoRPHine SULFATE 2 MG/ML CARP IV PRN (13:15)
[2017-07-02] MEDS ORDERED: POTASSIUM CHLORIDE 10 MEQ TABCR PO STA (13:35)
[2017-07-02] MEDS ORDERED: IV FLUIDS COMPLETED PRN (13:45)
[2017-07-02] MEDS: LOSARTAN POTASSIUM 50 MG TAB PO SCH (13:55)
[2017-07-02] MEDS ORDERED: LOSARTAN POTASSIUM 50 MG TAB PO SCH (14:00)
[2017-07-02] MEDS ORDERED: POTASSIUM CHLORIDE 20 MEQ TABCR PO SCH ×2 (14:00→21:00)
[2017-07-02] MEDS ORDERED: HYDROmorphone INJ 0.5 MG/0.5 ML SYR IV STA ×2 (14:02→14:27)
[2017-07-02] MEDS ORDERED: HYDROmorphone INJ 0.5 MG/0.5 ML SYR ONE ×2 (14:05→14:35)
[2017-07-02] MEDS ORDERED: OXYCODONE/ACETAMINOPHEN 5-325 TAB PO PRN (14:30)
[2017-07-02 15:06] VITALS: BP 159/78; PULSE 82; TEMP 37.1; O2SAT 95
--- NOTE | 2017-07-02 15:59 | ORTHOPEDIC CONSULTATION ---
DATE OF CONSULTATION: 07/02/2017 HISTORY OF PRESENT ILLNESS: This is a 77-year-old gentleman who is on chronic Coumadin for mechanical valve. Initially he had a spontaneous hemarthrosis of his right knee in March and was seen by Haroldo Schuler on behalf of our group and had an aspiration of the knee. He was then seen by Dr. Daniel in followup in clinic and then had no improvement in his right knee pain. He then underwent an arthroscopic irrigation and debridement of the right knee approximately 3 weeks ago and was on a Lovenox bridge back to Coumadin. He had difficulty managing the bridge and did have his sutures removed last week in Dr. Daniel' clinic; however, he presented back to [facility] ER on 07/02/2017 for increased painful hemarthrosis of the right knee and an INR over 10. The patient had severe pain, swelling, and inability to ambulate and admitted to the hospital. No other new injuries to the right knee. PAST MEDICAL HISTORY: Acute kidney injury, anemia, chronic anticoagulation on warfarin due to mechanical valve, atrial fibrillation and atypical chest pain, cerebrovascular disease, chronic pulmonary aspiration, coagulopathy, CVA remote with disturbance of vision, dehydration, double vision in both eyes, effusion of the right knee, hemarthrosis right knee, hematoma right thigh, history of lower GI bleed, history of oral cancer, hypertension, hypertensive urgency, hypokalemia, left-sided chest pain, rectal bleeding, TIA, and tinnitus. PAST SURGICAL HISTORY: History of colonoscopy, right knee arthroscopy, mitral valve replacement with mechanical valve, dental surgery, mandibular surgery, cholecystectomy, ERCP. ALLERGIES: ALLOPURINOL WITH COUGH, LISINOPRIL WITH COUGH. HOME MEDICATIONS: Losartan, verapamil, warfarin, furosemide, Indocin, and K tabs. SOCIAL HISTORY: Denies tobacco use, denies drug use. Alcohol use occasional. He is and lives with his and is retired. PHYSICAL EXAMINATION: GENERAL: This is a 77-year-old gentleman who is lying supine in his hospital room bed. Alert and oriented x3. Speech clear and fluent. Affect is appropriate. He is in obvious discomfort to the right knee. EXTREMITIES: Examination of the right knee demonstrates a significant effusion with tenderness to palpation. Dorsalis pedis pulses +2/4. Foot is warm. He has limited active and passive range of motion due to painful hemarthrosis of the right knee. No calf tenderness. No pain with passive or active dorsiflexion, plantar flexion of the right knee or the right ankle. LABORATORY DATA: Reviewed with INR greater than 10, PT over 100 and white blood count 8.2, hemoglobin 8.8, hematocrit 27.7, platelet count 346. Ultrasound pending. IMPRESSION: 1. Right knee hemarthrosis. 2. Coagulopathy with INR greater than 10. RECOMMENDATION: Discussed the case with medical service. We will work on reducing his coagulopathy to a rate of approximately 2.5-3. Once level was achieved, the patient may need to undergo repeat arthroscopic I and D versus open arthrotomy of the right knee. However, we will still have the same difficulty bridging him back through Lovenox or heparin to Coumadin, which may cause recurrent hemarthrosis. We will discuss and follow up further with you. Thank you for the opportunity to consult in the care of this patient.
[2017-07-02 16:16] LABS: HEMATOCRIT 26.4 % (42-52); HEMOGLOBIN 8.3 g/dL (14.0-18.0)
[2017-07-02] MEDS: OXYCODONE/ACETAMINOPHEN 5-325 TAB PO PRN ×2 (16:26→20:58)
[2017-07-02 16:33] LABS: CREATININE 1.1 mg/dl (0.60-1.40); POTASSIUM 2.8 mmol/L (3.5-5.1)
[2017-07-02 16:36] LABS: INR 2.9 (0.9-1.1)
[2017-07-02] MEDS: HYDROmorphone INJ 2 MG/ML SYR/VIAL IV PRN ×2 (18:11→23:16)
[2017-07-02] MEDS ORDERED: POTASSIUM CHLORIDE 10 MEQ TABCR PO ONE (20:30)
--- NOTE | 2017-07-02 20:39 | Progress Note ---
Progress Note Date of Service July 02, 2017. Progress Note AFTERNOON LABS REVIEWED INR: 2.9 Hemoglobin 8.8->8.3 (transfuse for hemoglobin less than 7 or symptoms) Ultrasound of right lower extremity still pending Ordered for n.p.o. past midnight/for possible I&D procedure by orthopedics tomorrow Repeat labs in a.m. Hypokalemia: Corrected Follow BMP
[2017-07-02] MEDS: DOCUSATE SODIUM/SENNA 50/8.6MG TAB PO SCH (20:57)
[2017-07-02] MEDS: VERAPAMIL HCL 120 MG TABCR PO SCH (20:57)
[2017-07-02 21:00] VITALS: BP 138/79
[2017-07-02] MEDS ORDERED: VERAPAMIL HCL 120 MG TABCR PO SCH (21:00)
--- NOTE | 2017-07-02 22:08 | DIAGNOSTIC IMAGING REPORT ---
CHEST ONE VIEW PORTABLE HISTORY: 77 years-old Male pre op preoperative exam. No acute chest complaints COMPARISON: Chest radiograph 06/06/2017 TECHNIQUE: Portable AP view of the chest FINDINGS: Cardiac silhouette is moderately enlarged, unchanged. Atherosclerosis of the aorta. Prior median sternotomy. No pneumothorax, pleural effusion, focal airspace consolidation or overt pulmonary edema. Degenerative changes of the shoulders and spine. IMPRESSION: Cardiomegaly without acute process. The above report was generated using voice recognition software. It may contain grammatical, syntax or spelling errors. Electronically signed by: Trevor Paul M.D. 07/02/2017 10:06 PM Dictated Date/Time: 07/02/2017 10:05 PM
[2017-07-02 23:09] LABS: CALCIUM 7.7 mg/dl (8.5-10.1); CREATININE 1.14 mg/dl (0.60-1.40); POTASSIUM 3.1 mmol/L (3.5-5.1)
[2017-07-02 23:50] VITALS: O2SAT 95
[2017-07-03] VITALS (7 sets, daily range): BP systolic 113–166; BP diastolic 70–84; PULSE 75–85; TEMP 36.2–36.8; O2SAT 92–97
[2017-07-03] MEDS ORDERED: POTASSIUM CHLORIDE 10 MEQ TABCR PO STA (01:47)
[2017-07-03] MEDS: OXYCODONE/ACETAMINOPHEN 5-325 TAB PO PRN ×2 (02:29→10:01)
[2017-07-03] MEDS: HYDROmorphone INJ 2 MG/ML SYR/VIAL IV PRN ×2 (04:45→08:04)
[2017-07-03] MEDS ORDERED: CEFAZOLIN SOD 2000MG/15 ML IV PUSH IV SCH (06:00)
[2017-07-03 06:35] LABS: HEMATOCRIT 25.4 % (42-52); HEMOGLOBIN 7.9 g/dL (14.0-18.0); MEAN CORPUSCULAR HEMOGLOBIN 28.6 pg (25-34); MEAN CORPUSCULAR HGB CONC 31.1 g/dl (32-36); PLATELET COUNT 319 K/uL (130-400); RED CELL DISTRIBUTION WIDTH CV 14.8 % (11.5-14.5); RED CELL DISTRIBUTION WIDTH SD 49.2 fL (36.4-46.3); WHITE BLOOD COUNT 6.87 K/uL (4.8-10.8)
[2017-07-03 06:46] LABS: INR 1.4 (0.9-1.1)
[2017-07-03 07:06] LABS: CALCIUM 8.3 mg/dl (8.5-10.1); CREATININE 1.04 mg/dl (0.60-1.40); POTASSIUM 3.5 mmol/L (3.5-5.1)
[2017-07-03 07:10] LABS: TOTAL PROTEIN 6.3 gm/dl (6.4-8.2)
--- NOTE | 2017-07-03 07:53 | Orthopedic Progress Note ---
Orthopedic Progress Note Date of Service July 03, 2017. Subjective Reports: feeling well, Denies: chest pain, SOB, nausea / vomiting, light headedness, calf pain Additional Notes: STATES PAIN IS SLIGHTLY BETTER TODAY BUT NOT MUCH. INR DOWN TO 1.4 Objective calves soft nontender, N/V intact, capillary refill less than 2 sec., incision C /D/I, A&O x3, toes mobile SIGNIFICANT EFFUSION EXTENDING UP INTO THE THIGH. UPPER THIGH IS SOFT AND NT. INCISIONS CDI, NO DRAINAGE, NO ERYTHEMA. ROM PAINFUL AND LIMITED DUE TO SWELLING. NV INTACT. Date Time Temp Pulse Resp B/P (MAP) Pulse Ox O2 Delivery O2 Flow Rate FiO2 07/03/17 07:20 36.7 75 16 122/73 (89) 96 Room Air 07/02/17 23:50 95 Room Air 07/02/17 21:00 138/79 (98) 07/02/17 19:00 Room Air 07/02/17 16:30 Room Air 07/02/17 15:06 37.1 82 18 159/78 (105) 95 Room Air 07/02/17 13:11 81 18 207/98 (134) 98 Room Air 07/02/17 12:44 80 16 149/86 96 07/02/17 12:16 77 95 07/02/17 12:15 146/82 07/02/17 12:01 80 95 07/02/17 12:00 127/85 07/02/17 11:46 73 12 07/02/17 11:45 149/92 07/02/17 11:41 79 20 07/02/17 11:30 82 18 165/95 07/02/17 11:15 83 17 167/92 07/02/17 11:09 96 Room Air 07/02/17 11:00 79 16 168/90 96 07/02/17 10:45 75 13 172/88 96 Room Air 07/02/17 10:35 87 07/02/17 10:34 79 13 174/92 96 07/02/17 10:20 80 18 182/95 96 07/02/17 08:36 36.6 77 20 140/86 93 Room Air Laboratory Results 24 Hours: Test 07/02/17 09:00 07/02/17 15:58 07/03/17 06:18 White Blood Count 8.28 K/uL Red Blood Count 3.04 M/uL Hemoglobin 8.8 g/dL 8.3 g/dL 7.9 g/dL Hematocrit 27.7 % 26.4 % 25.4 % Mean Corpuscular Volume 91.1 fL Mean Corpuscular Hemoglobin 28.9 pg Mean Corpuscular Hemoglobin Concent 31.8 g/dl Platelet Count 346 K/uL Mean Platelet Volume 8.8 fL Neutrophils (%) (Auto) 83.0 % Lymphocytes (%) (Auto) 7.4 % Monocytes (%) (Auto) 8.6 % Eosinophils (%) (Auto) 0.7 % Basophils (%) (Auto) 0.1 % Neutrophils # (Auto) 6.87 K/uL Lymphocytes # (Auto) 0.61 K/uL Monocytes # (Auto) 0.71 K/uL Eosinophils # (Auto) 0.06 K/uL Basophils # (Auto) 0.01 K/uL Prothromb Time International Ratio > 10.0 2.9 1.4 Prothrombin Time > 100.0 SECONDS 30.2 SECONDS 14.5 SECONDS Assessment & Plan Assessment: RECURRENT HEMARTHROSIS RIGHT KNEE Plan: PATIENT CURRENTLY NPO FOR OR TODAY. WILL DISCUSS WITH DR. ELDRIDGE TO SEE IF HE' S GOING TO GO TODAY VS WITH [facility] TOMORROW. ALSO OPEN VS ARTHROSCOPIC. - CONSENT ON CHART -ANCEF ORDERED PAIN MANAGEMENT- [facility]
--- NOTE | 2017-07-03 08:01 | DIAGNOSTIC IMAGING REPORT ---
RIGHT KNEE ULTRASOUND CLINICAL HISTORY: Right knee swelling, hematoma COMPARISON STUDY: Right leg venous Doppler 04/06/2017. FINDINGS: Within the anterolateral knee there is an 11 x 9 x 5 cm complex fluid collection at the deep subcutaneous soft tissues. There are few punctate echogenic foci within this collection which may represent gas. IMPRESSION: An 11 x 9 x 5 cm complex fluid collection within the anterolateral aspect of the right knee. This could contain a few small foci of gas and therefore may represent a hematoma versus abscess. Clinical correlation recommended. Electronically signed by: Mark Abdullahi M.D. 07/03/2017 7:59 AM Dictated Date/Time: 07/03/2017 7:56 AM
[2017-07-03] MEDS ORDERED: EpHEDrine SULFATE INJ 50 MG/ML AMP IV PRN (08:30)
[2017-07-03] MEDS ORDERED: ONDANSETRON INJ 2 MG/ML 2 ML VIAL IV PRN (08:30)
[2017-07-03] MEDS ORDERED: PHENYLEPHRINE 100MCG/ML 5ML SYR IV PRN (08:30)
[2017-07-03] MEDS ORDERED: HYDROmorphone INJ 2 MG/ML SYR/VIAL IV PRN (08:30)
[2017-07-03] MEDS ORDERED: ATROPINE SULFATE 0.1 MG/ML 5ML SYR IV PRN (08:30)
[2017-07-03] MEDS: POTASSIUM CHLORIDE 20 MEQ TABCR PO SCH ×2 (09:00→20:45)
[2017-07-03] MEDS: VERAPAMIL HCL 120 MG TABCR PO SCH ×2 (09:06→20:44)
[2017-07-03] MEDS: LOSARTAN POTASSIUM 50 MG TAB PO SCH (09:07)
--- NOTE | 2017-07-03 09:35 | Clinical Documentation Query ---
CLINICAL DOCUMENTATION QUERY Not my patient 77-y/o male who presented to ED with complaint of painful swelling of right knee. In your clinical opinion is this patient being managed for: ( ) Right knee hematoma due to Warfarin therapy with supratheraputic INR. ( ) Not Agree ( ) Other explanation of clinical findings (Please Explain. If no explanation given, this would be considered a no response.) ( ) Unable to determine ( ) Need to Discuss (Please call CDS via extension or qliq. If no interaction occurs this is considered a no response.) The medical record reflects the following clinical findings, treatment, and risk factors. Clinical Indicators: Swelling to right knee, INR >10, Hgb 17.9, Treatment: IV vitamin K+, serial INR's, Risk Factors: Warfarin therapy Please clarify and document your clinical opinion in the progress notes and discharge summary. Terms such as "probable", "suspected", "likely", "questionable", "possible", or "still to be ruled out" are acceptable. IF IN AGREEMENT, YOU MUST DOCUMENT ABOVE DIAGNOSTIC STATEMENT IN DAILY PROGRESS NOTES AND DISCHARGE SUMMARY. This document is not part of the patient's record. Thank You, Dwight Richardson RN [phone] & via qlicCONNECT
--- NOTE | 2017-07-03 11:50 | Clinical Documentation Query ---
CLINICAL DOCUMENTATION QUERY Dr. CARDOSO, 77-y/o male who presented to ED with complaint of painful swelling of right knee In your clinical opinion is this patient being managed for: ( x ) Right knee hemathrosis due to Warfarin therapy with supratheraputic INR. ( ) Not Agree ( ) Other explanation of clinical findings (Please Explain. If no explanation given, this would be considered a no response.) ( ) Unable to determine ( ) Need to Discuss (Please call CDS via extension or qliq. If no interaction occurs this is considered a no response.) The medical record reflects the following clinical findings, treatment, and risk factors. Clinical Indicators: Swelling to right knee, INR >10, Hgb 17.9, Treatment: IV vitamin K+, serial INR's, Risk Factors: Warfarin therapy Please clarify and document your clinical opinion in the progress notes and discharge summary. Terms such as "probable", "suspected", "likely", "questionable", "possible", or "still to be ruled out" are acceptable. IF IN AGREEMENT, YOU MUST DOCUMENT ABOVE DIAGNOSTIC STATEMENT IN DAILY PROGRESS NOTES AND DISCHARGE SUMMARY. This document is not part of the patient's record. Thank You, Dwight Richardson, RN [phone] & via qlicCONNECT
[2017-07-03] MEDS ORDERED: MAGIC SWIZZLE PO PRN (12:00)
--- NOTE | 2017-07-03 12:04 | Progress Note ---
Medicine Progress Note Date & Time of Visit: July 03, 2017 at 11:52. Subjective 77 yo M with mechanical mitral valve on coumadin therapy represents after a recent knee arthroscopy 3 weeks ago with now hemarthosis of the same R knee joint. He is having pain but this is controlled with medications. 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 We discussed that he can swish and spit only preoperatively. The patient states that when he left the hospital three weeks ago, he took 5 days of lovenox and continued taking coumadin every other day with alternating doses as he was told. He never had an INR check, however, until he presented with INR >10 yesterday. Objective Last 8 Hrs Date Time Temp Pulse Resp B/P (MAP) Pulse Ox O2 Delivery O2 Flow Rate FiO2 07/03/17 07:40 Room Air 07/03/17 07:20 36.7 75 16 122/73 (89) 96 Room Air Physical Exam: GEN: WNWD, in no acute distress, alert and appropriate HEENT: NC/AT, PERRL, normal sclerae CARDIO: reg rate, S1/2 heard without m/g/r LUNGS: coarse rhonchi heard on L base, CTA on right side. No wheezing, or rales. ABD: soft, non-tender, non-distended, no rebound or guarding, +BS, extensive ecchymosis in lower abdomen superficially. EXTREMITY: RLE with limited ROM and clear knee effusion, BLE are warm and well perfused NEURO: CN 2-12 grossly intact, no gross focal deficits. SKIN: warm and dry, ecchymosis as above. Laboratory Results: 07/03/17 06:18 07/03/17 06:18 Test 07/02/17 09:00 07/03/17 06:18 Immature Granulocyte % (Auto) 0.2 % White Blood Count 8.28 K/uL (4.8-10.8) Red Blood Count 3.04 M/uL (4.7-6.1) 2.76 M/uL (4.7-6.1) Hemoglobin 8.8 g/dL (14.0-18.0) Hematocrit 27.7 % (42-52) Mean Corpuscular Volume 91.1 fL (80-100) 92.0 fL (80-100) Mean Corpuscular Hemoglobin 28.9 pg (25-34) 28.6 pg (25-34) Mean Corpuscular Hemoglobin Concent 31.8 g/dl (32-36) 31.1 g/dl (32-36) Platelet Count 346 K/uL (130-400) Mean Platelet Volume 8.8 fL (7.4-10.4) 9.0 fL (7.4-10.4) Neutrophils (%) (Auto) 83.0 % Lymphocytes (%) (Auto) 7.4 % Monocytes (%) (Auto) 8.6 % Eosinophils (%) (Auto) 0.7 % Basophils (%) (Auto) 0.1 % Neutrophils # (Auto) 6.87 K/uL (1.4-6.5) Lymphocytes # (Auto) 0.61 K/uL (1.2-3.4) Monocytes # (Auto) 0.71 K/uL (0.11-0.59) Eosinophils # (Auto) 0.06 K/uL (0-0.5) Basophils # (Auto) 0.01 K/uL (0-0.2) Immature Granulocyte # (Auto) 0.02 K/uL (0.00-0.02) Red Blood Cell Morphology Unremarkable Activated Partial Thromboplast Time 86.5 SECONDS (21.0-31.0) Partial Thromboplastin Ratio 3.3 Globulin 3.7 gm/dl (2.5-4.0) Albumin/Globulin Ratio 0.9 (0.9-2) RDW Standard Deviation 49.2 fL (36.4-46.3) RDW Coefficient of Variation 14.8 % (11.5-14.5) Prothrombin Time 14.5 SECONDS (9.0-12.0) Prothromb Time International Ratio 1.4 (0.9-1.1) Anion Gap 3.0 mmol/L (3-11) Est Creatinine Clear Calc Drug Dose 75.0 ml/min Estimated GFR () 79.3 Estimated GFR (Non- 68.4 BUN/Creatinine Ratio 21.1 (10-20) Calcium Level 8.3 mg/dl (8.5-10.1) Magnesium Level 2.4 mg/dl (1.8-2.4) Total Bilirubin 1.3 mg/dl (0.2-1) Direct Bilirubin 0.4 mg/dl (0-0.2) Aspartate Amino Transf (AST/SGOT) 19 U/L (15-37) Alanine Aminotransferase (ALT/SGPT) 13 U/L (12-78) Alkaline Phosphatase 185 U/L (45-117) Total Protein 6.3 gm/dl (6.4-8.2) Albumin 3.0 gm/dl (3.4-5.0) Last 24 Hours Test 07/02/17 15:58 07/02/17 22:36 07/03/17 06:18 Hemoglobin 8.3 g/dL 7.9 g/dL Hematocrit 26.4 % 25.4 % Prothrombin Time 30.2 SECONDS 14.5 SECONDS Prothromb Time International Ratio 2.9 1.4 Sodium Level 138 mmol/L 139 mmol/L 139 mmol/L Potassium Level 2.8 mmol/L 3.1 mmol/L 3.5 mmol/L Chloride Level 100 mmol/L 101 mmol/L 103 mmol/L Carbon Dioxide Level 32 mmol/L 34 mmol/L 33 mmol/L Anion Gap 6.0 mmol/L 5.0 mmol/L 3.0 mmol/L Blood Urea Nitrogen 21 mg/dl 22 mg/dl 22 mg/dl Creatinine 1.10 mg/dl 1.14 mg/dl 1.04 mg/dl Est Creatinine Clear Calc Drug Dose 70.9 ml/min 68.4 ml/min 75.0 ml/min Estimated GFR () 74.1 71.0 79.3 Estimated GFR (Non- 64.0 61.3 68.4 BUN/Creatinine Ratio 19.5 19.2 21.1 Random Glucose 164 mg/dl 186 mg/dl 127 mg/dl Calcium Level 8.0 mg/dl 7.7 mg/dl 8.3 mg/dl Magnesium Level 2.1 mg/dl 2.4 mg/dl White Blood Count 6.87 K/uL Red Blood Count 2.76 M/uL Mean Corpuscular Volume 92.0 fL Mean Corpuscular Hemoglobin 28.6 pg Mean Corpuscular Hemoglobin Concent 31.1 g/dl RDW Standard Deviation 49.2 fL RDW Coefficient of Variation 14.8 % Platelet Count 319 K/uL Mean Platelet Volume 9.0 fL Total Bilirubin 1.3 mg/dl Direct Bilirubin 0.4 mg/dl Aspartate Amino Transf (AST/SGOT) 19 U/L Alanine Aminotransferase (ALT/SGPT) 13 U/L Alkaline Phosphatase 185 U/L Total Protein 6.3 gm/dl Albumin 3.0 gm/dl Assessment & Plan 77 yo M with mechanical mitral valve on coumadin therapy represents after a recent knee arthroscopy 3 weeks ago with now hemarthosis of the same R knee joint. He is having pain but this is controlled with medications. 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 We discussed that he can swish and spit only preoperatively. The patient states that when he left the hospital three weeks ago, he took 5 days of lovenox and continued taking coumadin every other day with alternating doses as he was told. He never had an INR check, however, until he presented with INR >10 yesterday. 1. R knee hemarthosis 2.2 supratherapeutic anticoagulation. INR was reversed and is currently 1.4. Planned for OR today. Plan post-operatively will be to tentatively start a heparin drip 24 hrs post-op and use this to bridge him to his coumadin with close inpatient monitoring. Goal INR with his valve is 2.5- 3.5. Will look into why coumadin clinic was not following him closely postoperatively last time. 2. s/o mechanical mitral valve-goal INR 2.5-3.5. Plan as above. 3. Chronic atrial fibrillation-rate is controlled with verapamil. Coumadin as above. 4. HTN-controlled, cont cozaar. 5. 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 6. Acute posthemorrhagic anemia-#1. Plan as above. DVT proph-holding for now and will plan to resume heparin drip 24 hours post op unless Ortho is not ok with this. Full Code Dispo-likely will stay in the hospital for approx 5 days with heparin bridge to coumadin post-operatively. Expect him to go home after that. Pt has with MS who cannot driuve and has custody of his great grandchildren who are 14 and 17 yrs old. He cares for all of them. [facility] Consultants: Orthopedics-Dr. Shukri Price. Current Inpatient Medications: Current Inpatient Medications Medications (Trade) Dose Ordered Sig/Maryjane Route Start Time Stop Time Status Last Admin Dose Admin Acetaminophen (Tylenol Tab) 650 mg Q4H PRN PO 07/02/17 10:45 08/01/17 10:44 Ondansetron HCl (Zofran Inj) 4 mg Q6H PRN IV 07/02/17 10:45 08/01/17 10:44 Senna/Docusate Sodium (Senokot S Tab) 1 tab HS PO 07/02/17 21:00 08/01/17 20:59 07/02/17 20:57 1 TAB Losartan Potassium (coZAAR TAB) 100 mg DAILY PO 07/02/17 13:15 08/01/17 13:59 07/03/17 09:07 100 MG Hydralazine HCl (HydrALAZINE INJ) 10 mg Q8 PRN IV. 07/02/17 13:15 08/01/17 13:14 Verapamil HCl (Calan-Sr Tab) 120 mg BID PO 07/02/17 21:00 08/01/17 20:59 07/03/17 09:06 120 MG Miscellaneous (Iv Fluids Completed) 1 ea PRN PRN N/A 07/02/17 13:45 07/02/18 13:44 Hydromorphone HCl (Dilaudid Inj) 1 mg Q2HWA PRN IV 07/02/17 14:30 07/16/17 14:29 07/03/17 08:04 1 MG Oxycodone/ Acetaminophen (Percocet 5-325mg Tab) 1 tab Q4H PRN PO 07/02/17 14:30 07/16/17 14:29 Oxycodone/ Acetaminophen (Percocet 5-325mg Tab) 2 tab Q4H PRN PO 07/02/17 14:30 07/16/17 14:29 07/03/17 10:01 2 TAB Potassium Chloride (Klor-Con Tab) 20 meq BID PO 07/03/17 09:00 08/01/17 20:59 Cefazolin Sodium (Ancef 2000mg Iv Push) 2,000 mg PREOP IV 07/03/17 06:00 07/03/17 23:59 Hydromorphone HCl (Dilaudid Inj) 0.5 mg Q5M PRN IV 07/03/17 08:30 07/03/17 13:30 Ondansetron HCl (Zofran Inj) 4 mg ONE PRN IV 07/03/17 08:30 07/03/17 13:30 Ephedrine Sulfate (EpHEDrine SULFATE INJ) 5 mg Q5M PRN IV 07/03/17 08:30 07/03/17 13:30 Atropine Sulfate (Atropine Sulfate 0.1mg/ml Inj) 0.5 mg Q1M PRN IV 07/03/17 08:30 07/03/17 13:30 Phenylephrine HCl (Austen-Synephrine 500MCG/5ML Syr) 100 mcg Q5M PRN IV 07/03/17 08:30 07/03/17 13:30
[2017-07-03] MEDS ORDERED: MIDAZOLAM HCL 1 MG/ML 2ML VIAL ONE (12:37)
[2017-07-03] MEDS ORDERED: FENTANYL CITRATE INJ 50 MCG/1 ML 2 ML VIAL ONE (12:37)
[2017-07-03] MEDS ORDERED: BACITRACIN 50000 UNIT VIAL ONE (13:37)
--- NOTE | 2017-07-03 13:54 | History & Physical Bridge Note ---
H&P Re-Evaluation Bridge Note: I have examined the patient, reviewed the History & Physical and in the interval since the performance of the History & Physical I have noted the following changes of clinical significance: No changes noted
[2017-07-03] MEDS ORDERED: BUPIVACAINE/EPINEPHRINE 0.5% MPF 1:200,000 30 ML VIAL ONE (14:09)
[2017-07-03] MEDS ORDERED: LIDOCAINE HCL 2% 2 ML VIAL (20MG/ML) ONE (14:27)
[2017-07-03] MEDS ORDERED: ONDANSETRON INJ 2 MG/ML 2 ML VIAL ONE (14:27)
[2017-07-03] MEDS ORDERED: PHENYLEPHRINE 100MCG/ML 5ML SYR ONE (14:27)
[2017-07-03] MEDS ORDERED: PROPOFOL IV EMULSION 10 MG/ML 20 ML VIAL ONE (14:29)
[2017-07-03] MEDS ORDERED: MoRPHine SULFATE 2 MG/ML CARP IV PRN (14:30)
[2017-07-03] MEDS ORDERED: CEFAZOLIN IV 2,000 MG in DEXTROSE 5% 50ML 50 ML IV SCH (14:30)
--- NOTE | 2017-07-03 15:18 | [facility] Post Operative Brief Note ---
Immediate Operative Summary Operative Date July 03, 2017. Pre-Operative Diagnosis Right Knee Hemarthrosis Post-Operative Diagnosis Same as preop Procedure(s) Performed Right Knee Arthroscopic Irrigation and debridement Surgeon Dr. Carreon Short Filler Bunch Machine Operator Surgeon(s) none Estimated Blood Loss 300 cc evacuated clot; 0ml new blood loss Findings Consistent with Post-Op Diagnosis Specimens none per surgeon Drains None Anesthesia Type General Complication(s) none Disposition Accompanied Pt To Recover: no Disposition: Recovery Room / PACU
[2017-07-03] MEDS ORDERED: HYDROmorphone INJ 0.5 MG/0.5 ML SYR ONE (15:20)
--- NOTE | 2017-07-03 15:26 | OPERATIVE REPORT ---
DATE OF OPERATION: 07/03/2017 PREOPERATIVE DIAGNOSIS: Recurrent hematoma, right knee. POSTOPERATIVE DIAGNOSIS: Recurrent hematoma, right knee. PROCEDURE: Evacuation of hematoma, right knee. SURGEON: Lee Carreon MD ANESTHESIA: General. COMPLICATIONS: None. DESCRIPTION OF NOTE: Following induction of adequate general anesthesia, the patient's right leg was exsanguinated with elevation and tourniquet was inflated to 350 mmHg. The previously made incisions were reopened. The anterior portal was used for insertion of the arthroscope. Organized clot was immediately visible. A 5.5 incisor blade was placed medially where an evacuation of the hematoma was carried out using the shaver blade and 8 L of sterile saline. Initial landmarks were difficult to identify, then the patellofemoral joint came into view. Organized hematoma from the suprapatellar pouch and medial and lateral gutters were removed using the shaver blade. The joint capsule did not appear to be intact, clot continued to seem to extend beneath the quadriceps to the mid thigh region beyond reaches of the shaver blade. The intercondylar notch was cleared of soft tissue as well as medial and lateral compartments. The suprapatellar pouch was soft at the end of the procedure and the wounds were closed using 4-0 nylon simple sutures. Sterile dressing of 4 x 4s, sterile Webril, and double length Cachorro was applied. The patient tolerated the procedure well. I attest to the content of the Intraoperative Record and any orders documented therein. Any exception s are noted below.
[2017-07-03] MEDS ORDERED: MoRPHine SULFATE 4 MG/ML 1 ML CARP\\VIAL ONE (16:35)
--- NOTE | 2017-07-03 16:42 | Anesthesiology Progress Note ---
Anesthesia Post Op Note Date & Time July 03, 2017 at 16:42 Vital Signs Pain Intensity: 10.0 Vital Signs Past 12 Hours Date Time Temp Pulse Resp B/P (MAP) Pulse Ox O2 Delivery O2 Flow Rate FiO2 07/03/17 15:35 36.7 70 16 167/83 97 Nasal Cannula 3 07/03/17 15:25 70 16 169/78 95 Nasal Cannula 3 07/03/17 15:15 72 16 172/89 97 Nasal Cannula 3 07/03/17 15:06 37.1 81 16 173/83 95 Nasal Cannula 3 07/03/17 12:28 37.2 81 18 142/73 (96) 93 Room Air 07/03/17 07:40 Room Air 07/03/17 07:20 36.7 75 16 122/73 (89) 96 Room Air Notes Mental Status: alert / awake / arousable, participated in evaluation Pt Amnestic to Procedure: Yes Nausea / Vomiting: adequately controlled Pain: adequately controlled Airway Patency, RR, SpO2: stable & adequate BP & HR: stable & adequate Hydration State: stable & adequate Anesthetic Complications: no major complications apparent
[2017-07-03] MEDS: OXYCODONE HCL IR 5 MG TAB (IMMEDIATE RELEASE) PO PRN (17:53)
[2017-07-03] MEDS: ACETAMINOPHEN 325 MG TAB PO PRN (17:54)
[2017-07-03] MEDS: MoRPHine SULFATE 4 MG/ML 1 ML CARP\\VIAL IV PRN (20:43)
[2017-07-03] MEDS: DOCUSATE SODIUM/SENNA 50/8.6MG TAB PO SCH (20:45)
[2017-07-03] MEDS: CEFAZOLIN IV 2,000 MG in SYRINGE 0 ML IV SCH (22:43)
[2017-07-04] VITALS (19 sets, daily range): BP systolic 89–158; BP diastolic 57–81; PULSE 64–86; TEMP 36.7–37.3; O2SAT 86–100
[2017-07-04] MEDS: OXYCODONE HCL IR 5 MG TAB (IMMEDIATE RELEASE) PO PRN ×3 (00:19→19:46)
[2017-07-04] MEDS: MoRPHine SULFATE 4 MG/ML 1 ML CARP\\VIAL IV PRN ×4 (01:05→18:05)
[2017-07-04] MEDS: CEFAZOLIN IV 2,000 MG in SYRINGE 0 ML IV SCH (05:42)
[2017-07-04 07:05] LABS: INR 1.2 (0.9-1.1)
[2017-07-04 07:06] LABS: HEMATOCRIT 22.1 % (42-52); HEMOGLOBIN 6.8 g/dL (14.0-18.0); MEAN CORPUSCULAR HEMOGLOBIN 28.9 pg (25-34); MEAN CORPUSCULAR HGB CONC 30.8 g/dl (32-36); PLATELET COUNT 283 K/uL (130-400); RED CELL DISTRIBUTION WIDTH CV 15.2 % (11.5-14.5); RED CELL DISTRIBUTION WIDTH SD 51.4 fL (36.4-46.3); WHITE BLOOD COUNT 9.89 K/uL (4.8-10.8)
[2017-07-04] MEDS ORDERED: ACETAMINOPHEN 325 MG TAB PO SCH (08:00)
[2017-07-04] MEDS ORDERED: FUROSEMIDE INJ 20 MG in SYRINGE 0 ML IV SCH (08:00)
[2017-07-04] MEDS: POTASSIUM CHLORIDE 20 MEQ TABCR PO SCH ×2 (08:56→21:00)
[2017-07-04] MEDS: VERAPAMIL HCL 120 MG TABCR PO SCH ×2 (09:00→21:06)
[2017-07-04] MEDS: LOSARTAN POTASSIUM 50 MG TAB PO SCH (09:00)
--- NOTE | 2017-07-04 09:00 | Pathology Note ---
Pathology Note Date of Service July 04, 2017. Pathology Notes Blood Bank Pathologist Note: I approved a request to provide this O negative patient with O positive blood. This was due to a low inventory of O negative blood.
--- NOTE | 2017-07-04 10:14 | Anesthesiology Progress Note ---
Anesthesia Post Op Note Date & Time July 04, 2017 at 10:13 Vital Signs Pain Intensity: 0.0 Vital Signs Past 12 Hours Date Time Temp Pulse Resp B/P (MAP) Pulse Ox O2 Delivery O2 Flow Rate FiO2 07/04/17 10:00 36.9 72 16 99/61 98 2.0 07/04/17 09:45 36.9 73 16 104/57 97 2.0 07/04/17 09:31 37.2 69 18 113/62 07/04/17 09:02 103/64 (77) 89/63 (72) 07/04/17 07:50 95 Nasal Cannula 2.0 07/04/17 07:49 37.3 69 18 113/68 (83) 86 Room Air 07/04/17 07:40 Room Air 07/04/17 04:01 36.7 68 16 96/60 (72) 95 Room Air 07/04/17 00:05 Room Air 07/03/17 23:06 36.7 78 18 117/74 (88) 94 Room Air Notes Mental Status: alert / awake / arousable, participated in evaluation Pt Amnestic to Procedure: Yes Nausea / Vomiting: adequately controlled Pain: adequately controlled Airway Patency, RR, SpO2: stable & adequate BP & HR: stable & adequate Hydration State: stable & adequate Anesthetic Complications: no major complications apparent
--- NOTE | 2017-07-04 11:58 | Orthopedic Progress Note ---
Orthopedic Progress Note Date of Service July 04, 2017. Subjective Post OP Day: 1 Reports: feeling well, pain controlled w PO medications, Denies: complaints, chest pain, SOB, nausea / vomiting, light headedness, calf pain Objective Date Time Temp Pulse Resp B/P (MAP) Pulse Ox O2 Delivery O2 Flow Rate FiO2 07/04/17 11:00 37.1 72 16 112/68 98 2.0 07/04/17 10:00 36.9 72 16 99/61 98 2.0 07/04/17 09:45 36.9 73 16 104/57 97 2.0 07/04/17 09:31 37.2 69 18 113/62 07/04/17 09:02 103/64 (77) 89/63 (72) 07/04/17 07:50 95 Nasal Cannula 2.0 07/04/17 07:49 37.3 69 18 113/68 (83) 86 Room Air 07/04/17 07:40 Room Air 07/04/17 04:01 36.7 68 16 96/60 (72) 95 Room Air 07/04/17 00:05 Room Air 07/03/17 23:06 36.7 78 18 117/74 (88) 94 Room Air 07/03/17 19:15 36.2 81 18 113/70 (84) 93 Room Air 07/03/17 18:10 36.8 85 18 143/72 (95) 92 Room Air 07/03/17 16:50 36.8 76 20 164/77 (106) 92 Nasal Cannula 3.0 07/03/17 16:20 36.8 78 16 152/84 (106) 97 Nasal Cannula 3.0 07/03/17 15:50 96 Nasal Cannula 3.0 07/03/17 15:50 36.8 75 16 166/81 (109) 96 Nasal Cannula 3.0 07/03/17 15:50 96 Nasal Cannula 3.0 07/03/17 15:35 36.7 70 16 167/83 97 Nasal Cannula 3 07/03/17 15:25 70 16 169/78 95 Nasal Cannula 3 07/03/17 15:15 72 16 172/89 97 Nasal Cannula 3 07/03/17 15:06 37.1 81 16 173/83 95 Nasal Cannula 3 07/03/17 12:28 37.2 81 18 142/73 (96) 93 Room Air Laboratory Results 24 Hours: Test 07/04/17 06:15 Hematocrit 22.1 % Hemoglobin 6.8 g/dL Prothromb Time International Ratio 1.2 Prothrombin Time 12.9 SECONDS Assessment & Plan Assessment: POD #1 s/p Evacuation of hematoma, right knee -June WBAT acute blood loss anemia- ordered 2 units PRBCs anticoagulation per medical team
[2017-07-04 19:18] LABS: HEMATOCRIT 28.8 % (42-52); HEMOGLOBIN 9.2 g/dL (14.0-18.0)
[2017-07-04] MEDS: ACETAMINOPHEN 325 MG TAB PO PRN (19:46)
[2017-07-04 20:36] LABS: BASO % 0.1 %; BASO ABS # 0.01 K/uL (0-0.2); EOS % 0.5 %; EOS ABS # 0.04 K/uL (0-0.5); IG# 0.02 K/uL (0.00-0.02); LYMPH % 8.8 %; LYMPH ABS # 0.65 K/uL (1.2-3.4); MEAN CORPUSCULAR HEMOGLOBIN 29.3 pg (25-34); MEAN CORPUSCULAR HGB CONC 31.9 g/dl (32-36); MEAN PLATELET VOLUME 9.4 fL (7.4-10.4); MONO % 7.8 %; MONO ABS # 0.58 K/uL (0.11-0.59); NEUT % 82.5 %; PLATELET COUNT 272 K/uL (130-400); RED CELL DISTRIBUTION WIDTH CV 15.1 % (11.5-14.5); RED CELL DISTRIBUTION WIDTH SD 49.8 fL (36.4-46.3)
[2017-07-04 20:43] LABS: MEAN CELL VOLUME 91.7 fL (80-100)
[2017-07-04] MEDS: DOCUSATE SODIUM/SENNA 50/8.6MG TAB PO SCH (21:06)
[2017-07-04] MEDS ORDERED: HEPARIN IV BOLUS 7,000 UNIT in SYRINGE 0 ML IV ONE (21:15)
[2017-07-04 21:21] LABS: INR 1.2 (0.9-1.1); PTT PATIENT 28.2 SECONDS (21.0-31.0)
[2017-07-04] MEDS: HEPARIN 25,000 UNIT/500ML D5W 500 ML IV SCH (21:35)
--- NOTE | 2017-07-04 22:13 | Progress Note ---
Medicine Progress Note Date & Time of Visit: July 04, 2017 at 0745. Subjective 77 yo M with mechanical mitral valve on coumadin therapy represents after a recent knee arthroscopy 3 weeks ago with now hemarthosis of the same R knee joint. He is status post right knee arthroscopy postoperative day 1 and doing well. Although he has some pain this is controlled with medications. We discussed the need for blood this morning and he is fine with this. We discussed the plan to start heparin after the blood today as a bridging therapy to Coumadin in the setting of mechanical mitral valve. Both he and his were present for these conversations and all questions were answered. Objective Last 8 Hrs Date Time Temp Pulse Resp B/P (MAP) Pulse Ox O2 Delivery O2 Flow Rate FiO2 07/04/17 20:00 36.8 69 18 115/73 (87) 97 Room Air 07/04/17 17:00 37.1 79 16 158/81 97 2.0 07/04/17 16:30 36.8 79 18 144/81 93 2.0 07/04/17 16:00 37.0 64 16 124/74 100 2.0 07/04/17 15:45 37.0 68 16 132/77 97 2.0 07/04/17 15:30 37.1 73 16 126/77 98 2.0 07/04/17 15:15 Nasal Cannula 2.0 07/04/17 14:09 36.7 78 16 120/81 100 2.0 Physical Exam: GEN: WNWD, in no acute distress, alert and appropriate HEENT: NC/AT, normal sclerae CARDIO: reg rate, S1/2 heard without m/g/r LUNGS: CTAB ABD: soft, non-tender, non-distended, no rebound or guarding, +BS, extensive ecchymosis in lower abdomen superficially. EXTREMITY: RLE with limited ROM wrapped in ARELI bandage, BLE are warm and well perfused NEURO: CN 2-12 grossly intact, no gross focal deficits. SKIN: warm and dry, ecchymosis as above. Laboratory Results: 07/04/17 19:06 Red Blood Count 3.14, Mean Corpuscular Volume 91.7, Mean Corpuscular Hemoglobin 29.3, Mean Corpuscular Hemoglobin Concent 31.9, Mean Platelet Volume 9.4, Neutrophils (%) (Auto) 82.5, Lymphocytes (%) (Auto) 8.8, Monocytes (%) (Auto) 7.8, Eosinophils (%) (Auto) 0.5, Basophils (%) (Auto) 0.1, Neutrophils # (Auto) 6.10, Lymphocytes # (Auto) 0.65, Monocytes # (Auto) 0.58, Eosinophils # (Auto) 0.04, Basophils # (Auto) 0.01 07/03/17 06:18 Test 07/02/17 09:00 07/03/17 06:18 07/04/17 19:06 07/04/17 20:49 Red Blood Cell Morphology Unremarkable Globulin 3.7 gm/dl (2.5-4.0) Albumin/Globulin Ratio 0.9 (0.9-2) Anion Gap 3.0 mmol/L (3-11) Est Creatinine Clear Calc Drug Dose 75.0 ml/min Estimated GFR () 79.3 Estimated GFR (Non- 68.4 BUN/Creatinine Ratio 21.1 (10-20) Calcium Level 8.3 mg/dl (8.5-10.1) Magnesium Level 2.4 mg/dl (1.8-2.4) Total Bilirubin 1.3 mg/dl (0.2-1) Direct Bilirubin 0.4 mg/dl (0-0.2) Aspartate Amino Transf (AST/SGOT) 19 U/L (15-37) Alanine Aminotransferase (ALT/SGPT) 13 U/L (12-78) Alkaline Phosphatase 185 U/L (45-117) Total Protein 6.3 gm/dl (6.4-8.2) Albumin 3.0 gm/dl (3.4-5.0) White Blood Count 7.40 K/uL (4.8-10.8) Red Blood Count 3.14 M/uL (4.7-6.1) Hemoglobin 9.2 g/dL (14.0-18.0) Hematocrit 28.8 % (42-52) Mean Corpuscular Volume 91.7 fL (80-100) Mean Corpuscular Hemoglobin 29.3 pg (25-34) Mean Corpuscular Hemoglobin Concent 31.9 g/dl (32-36) Platelet Count 272 K/uL (130-400) Mean Platelet Volume 9.4 fL (7.4-10.4) Neutrophils (%) (Auto) 82.5 % Lymphocytes (%) (Auto) 8.8 % Monocytes (%) (Auto) 7.8 % Eosinophils (%) (Auto) 0.5 % Basophils (%) (Auto) 0.1 % Neutrophils # (Auto) 6.10 K/uL (1.4-6.5) Lymphocytes # (Auto) 0.65 K/uL (1.2-3.4) Monocytes # (Auto) 0.58 K/uL (0.11-0.59) Eosinophils # (Auto) 0.04 K/uL (0-0.5) Basophils # (Auto) 0.01 K/uL (0-0.2) RDW Standard Deviation 49.8 fL (36.4-46.3) RDW Coefficient of Variation 15.1 % (11.5-14.5) Immature Granulocyte % (Auto) 0.3 % Immature Granulocyte # (Auto) 0.02 K/uL (0.00-0.02) Prothrombin Time 13.0 SECONDS (9.0-12.0) Prothromb Time International Ratio 1.2 (0.9-1.1) Activated Partial Thromboplast Time 28.2 SECONDS (21.0-31.0) Partial Thromboplastin Ratio 1.1 Last 24 Hours Test 07/04/17 06:15 07/04/17 19:06 07/04/17 20:49 White Blood Count 9.89 K/uL 7.40 K/uL Red Blood Count 2.35 M/uL 3.14 M/uL Hemoglobin 6.8 g/dL 9.2 g/dL Hematocrit 22.1 % 28.8 % Mean Corpuscular Volume 94.0 fL 91.7 fL Mean Corpuscular Hemoglobin 28.9 pg 29.3 pg Mean Corpuscular Hemoglobin Concent 30.8 g/dl 31.9 g/dl RDW Standard Deviation 51.4 fL 49.8 fL RDW Coefficient of Variation 15.2 % 15.1 % Platelet Count 283 K/uL 272 K/uL Mean Platelet Volume 9.0 fL 9.4 fL Prothrombin Time 12.9 SECONDS 13.0 SECONDS Prothromb Time International Ratio 1.2 1.2 Neutrophils (%) (Auto) 82.5 % Lymphocytes (%) (Auto) 8.8 % Monocytes (%) (Auto) 7.8 % Eosinophils (%) (Auto) 0.5 % Basophils (%) (Auto) 0.1 % Neutrophils # (Auto) 6.10 K/uL Lymphocytes # (Auto) 0.65 K/uL Monocytes # (Auto) 0.58 K/uL Eosinophils # (Auto) 0.04 K/uL Basophils # (Auto) 0.01 K/uL Immature Granulocyte % (Auto) 0.3 % Immature Granulocyte # (Auto) 0.02 K/uL Activated Partial Thromboplast Time 28.2 SECONDS Partial Thromboplastin Ratio 1.1 Assessment & Plan 77 yo M with mechanical mitral valve on coumadin therapy represents after a recent knee arthroscopy 3 weeks ago with now hemarthosis of the same R knee joint. He is status post right knee arthroscopy postoperative day 1 and doing well. Although he has some pain this is controlled with medications. We discussed the need for blood this morning and he is fine with this. We discussed the plan to start heparin after the blood today as a bridging therapy to Coumadin in the setting of mechanical mitral valve. Both he and his were present for these conversations and all questions were answered. 1. R knee hemarthosis 2/2 supratherapeutic anticoagulation status post right knee arthroscopy-postop day 1. Doing well with pain that is controlled with medications. Ortho is following. Continue wound care and activities per orthopedic recommendations. 2. s/p mechanical mitral valve-goal INR 2.5-3.5. We will plan to start heparin drip after giving blood today. Will plan to bridge to Coumadin over the next few days. Will only start Coumadin once ensuring heparin is not causing bleeding or issues in the knee. 3. Chronic atrial fibrillation-rate is controlled with verapamil. Anticoagulation as above 4. HTN-controlled, cont cozaar. 5. 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 6. Acute posthemorrhagic anemia-requiring blood transfusion this morning. Plan to transfuse 2 units, posttransfusion H&H. CBC in a.m. DVT proph-heparin drip is planned for later today, SCDs Full Code Dispo-likely will stay in the hospital for approx 5 days with heparin bridge to coumadin post-operatively. Expect him to go home after that. Pt has with MS who cannot drive and has custody of his great grandchildren who are 14 and 17 yrs old. He cares for all of them. Anita Fleming DO [facility] Hospitalist Consultants: Orthopedics-Dr. Shukri Price. Current Inpatient Medications: Current Inpatient Medications Medications (Trade) Dose Ordered Sig/Maryjane Route Start Time Stop Time Status Last Admin Dose Admin Acetaminophen (Tylenol Tab) 650 mg Q4H PRN PO 07/02/17 10:45 08/01/17 10:44 07/04/17 19:46 650 MG Ondansetron HCl (Zofran Inj) 4 mg Q6H PRN IV 07/02/17 10:45 08/01/17 10:44 Senna/Docusate Sodium (Senokot S Tab) 1 tab HS PO 07/02/17 21:00 08/01/17 20:59 07/04/17 21:06 1 TAB Losartan Potassium (coZAAR TAB) 100 mg DAILY PO 07/02/17 13:15 08/01/17 13:59 07/03/17 09:07 100 MG Hydralazine HCl (HydrALAZINE INJ) 10 mg Q8 PRN IV. 07/02/17 13:15 08/01/17 13:14 Verapamil HCl (Calan-Sr Tab) 120 mg BID PO 07/02/17 21:00 08/01/17 20:59 07/04/17 21:06 120 MG Miscellaneous (Iv Fluids Completed) 1 ea PRN PRN N/A 07/02/17 13:45 07/02/18 13:44 Potassium Chloride (Klor-Con Tab) 20 meq BID PO 07/03/17 09:00 08/01/17 20:59 Lidocaine HCl/ Diphenhydramine HCl/Al Hydroxide/ Mg Hydroxide/ Glycerin/Barcode TID PRN MT 07/03/17 13:15 08/02/17 13:14 Oxycodone HCl (Roxicodone Immediate Rel Tab) 1-2 TABS FOR PAIN 1 TABLET ... Q4H PRN PO 07/03/17 14:30 07/17/17 14:29 07/04/17 19:46 10 MG Morphine Sulfate (MoRPHine SULFATE INJ) 2 mg Q4H PRN IV 07/03/17 17:30 07/17/17 17:29 07/04/17 18:05 2 MG Heparin Sodium/ Dextrose 500 ml @ 33 mls/hr [id number] IV 07/04/17 21:15 08/03/17 21:14 07/04/17 21:35 33 MLS/HR
[2017-07-05] VITALS (11 sets, daily range): BP systolic 97–197; BP diastolic 74–100; PULSE 64–79; TEMP 36.6–36.9; O2SAT 92–100
[2017-07-05 04:09] LABS: HEMOGLOBIN 8.6 g/dL (14.0-18.0); MEAN CELL VOLUME 91.8 fL (80-100); MEAN CORPUSCULAR HEMOGLOBIN 29.3 pg (25-34); MEAN CORPUSCULAR HGB CONC 31.9 g/dl (32-36); PLATELET COUNT 224 K/uL (130-400); RED CELL DISTRIBUTION WIDTH CV 15.2 % (11.5-14.5); RED CELL DISTRIBUTION WIDTH SD 50.6 fL (36.4-46.3); WHITE BLOOD COUNT 6.52 K/uL (4.8-10.8)
[2017-07-05 04:27] LABS: CALCIUM 7.7 mg/dl (8.5-10.1); CREATININE 1.07 mg/dl (0.60-1.40); POTASSIUM 3.6 mmol/L (3.5-5.1)
[2017-07-05 04:30] LABS: INR 1.3 (0.9-1.1)
[2017-07-05 04:31] LABS: PTT PATIENT 81.5 SECONDS (21.0-31.0)
[2017-07-05] MEDS: HEPARIN 25,000 UNIT/500ML D5W 500 ML IV SCH ×2 (05:13→07:00)
[2017-07-05 07:58] LABS: PTT PATIENT 58.3 SECONDS (21.0-31.0)
[2017-07-05] MEDS: POTASSIUM CHLORIDE 20 MEQ TABCR PO SCH ×2 (08:40→21:00)
[2017-07-05] MEDS: VERAPAMIL HCL 120 MG TABCR PO SCH ×2 (08:43→21:33)
[2017-07-05] MEDS: LOSARTAN POTASSIUM 50 MG TAB PO SCH (08:44)
[2017-07-05] MEDS: OXYCODONE HCL IR 5 MG TAB (IMMEDIATE RELEASE) PO PRN (08:44)
[2017-07-05] MEDS: MoRPHine SULFATE 4 MG/ML 1 ML CARP\\VIAL IV PRN (09:35)
[2017-07-05] MEDS ORDERED: HYDROmorphone INJ 0.5 MG/0.5 ML SYR IV STA (10:02)
[2017-07-05] MEDS ORDERED: HYDROmorphone INJ 0.5 MG/0.5 ML SYR ONE ×3 (10:05→16:05)
[2017-07-05] MEDS ORDERED: HYDROmorphone INJ 2 MG/ML SYR/VIAL IV PRN ×2 (10:15→12:45)
[2017-07-05] MEDS ORDERED: NURSING VERBAL MED ORDER ONE ×3 (10:30→11:15)
--- NOTE | 2017-07-05 11:08 | DIAGNOSTIC IMAGING REPORT ---
RIGHT KNEE ULTRASOUND CLINICAL HISTORY: Right knee swelling, hematoma COMPARISON STUDY: Right leg ultrasound 07/03/2017. FINDINGS: There is again noted an 18 x 6 x 10 cm cm complex fluid collection within the anterolateral aspect of the right knee. This is likely similar in size and was likely underestimated on the prior study. This appears to be within the deep soft tissues or possibility represent a suprapatellar complex joint effusion. There again noted a few echogenic foci within this complex fluid collection. No associated color flow within the fluid collection. IMPRESSION: There is again noted an 18 x 6 x 10 cm complex fluid collection within the anterolateral aspect of the knee. This is similar in size and was likely underestimated on the prior study. The intact location is difficult to identify but is within the deep soft tissues and could represent a complex suprapatellar knee effusion. Electronically signed by: Mark Abdullahi M.D. 07/05/2017 11:07 AM Dictated Date/Time: 07/05/2017 11:01 AM
[2017-07-05] MEDS ORDERED: HYDROmorphone INJ 0.5 MG/0.5 ML SYR IV ONE (11:30)
[2017-07-05] MEDS: SODIUM CHLORIDE 0.9% 1000ML 1,000 ML IV SCH (13:18)
[2017-07-05] MEDS ORDERED: KETOROLAC TROMETHAMINE 15 MG/ML VIAL IV STA (13:21)
[2017-07-05] MEDS ORDERED: NALOXONE HCL 0.4 MG/1 ML VIAL/CARP IV PRN (13:30)
[2017-07-05] MEDS ORDERED: FENTANYL CITRATE INJ 50 MCG/1 ML 2 ML VIAL ONE ×2 (14:17→15:08)
[2017-07-05] MEDS ORDERED: MIDAZOLAM HCL 1 MG/ML 2ML VIAL ONE (14:17)
[2017-07-05] MEDS ORDERED: BUPIVACAINE 0.5 % 5 MG/1 ML MPF 30ML VIAL ONE (14:21)
[2017-07-05] MEDS ORDERED: ONDANSETRON INJ 2 MG/ML 2 ML VIAL IV PRN ×2 (14:30→15:45)
[2017-07-05] MEDS ORDERED: EpHEDrine SULFATE INJ 50 MG/ML AMP IV PRN (14:30)
[2017-07-05] MEDS ORDERED: HYDROmorphone INJ 1 MG/ML SYR IV PRN (14:30)
[2017-07-05] MEDS ORDERED: ATROPINE SULFATE 0.1 MG/ML 5ML SYR IV PRN (14:30)
[2017-07-05] MEDS ORDERED: DEXAMETHASONE SOD INJ 4 MG/ML VIAL ONE (14:49)
[2017-07-05] MEDS ORDERED: LIDOCAINE HCL 2% 2 ML VIAL (20MG/ML) ONE (14:49)
[2017-07-05] MEDS ORDERED: ONDANSETRON INJ 2 MG/ML 2 ML VIAL ONE (14:49)
[2017-07-05] MEDS ORDERED: PROPOFOL IV EMULSION 10 MG/ML 20 ML VIAL ONE (14:49)
[2017-07-05] MEDS ORDERED: CEFAZOLIN SOD 1 GM VIAL ONE (14:53)
--- NOTE | 2017-07-05 15:32 | [facility] Post Operative Brief Note ---
Immediate Operative Summary Operative Date July 05, 2017. Pre-Operative Diagnosis Right knee hematoma Post-Operative Diagnosis Right knee hematoma Procedure(s) Performed Right Knee Arthroscopic Washout, Evacuation of Hematoma with Placement of Drain Surgeon Dr. Daniel Log Data Technician Surgeon(s) None Estimated Blood Loss 10ml Findings Consistent with Post-Op Diagnosis Specimens none Anesthesia Type General Complication(s) none
--- NOTE | 2017-07-05 15:34 | [facility] Operative Report ---
Operative Report Operative Date July 05, 2017. Pre-Operative Diagnosis Right knee hematoma Post-Operative Diagnosis Right knee hematoma Procedure(s) Performed Right Knee Arthroscopic Washout, Evacuation of Hematoma with Placement of Drain Surgeon Dr. 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 his INR is greater than 10 and bleeding has had 2 previous washouts presents today for repeat washout miniarthrotomy evacuation of hematoma placement of drains Specimens none Drains None Anesthesia Type General Complication(s) none Disposition no Recovery Room / PACU Indications Hematoma right knee tense and painful Description of Procedure Patient presents for hematomas right knee for evacuation and placement of drains after proper prepping draping right lower extremity incision made there is a 2 anterior portals the medial portal was then opened approximately 2 cm a [place] [employer] drain was able to be suctioned to be placed inside the drain inside the knee joint and subsequently of the knee was irrigated with 9 L of sterile saline solution and hematoma was all evacuated arthroscopically thorough irrigation debridement was performed to medium Hemovacs were placed in the deep wound brought out superolaterally the deep capsule was closed with a #3 2-0 Vicryl subcu was closed with 3-0 Vicryl skin was closed with 3-0 nylon sterile compressive dressing was placed as well as in the immobilizer with a [address] the patient procedure well was sent to recovery in stable condition operative report dictated by Fredy. I attest to the content of the Intraoperative Record and any orders documented therein. Any exceptions are noted below.
[2017-07-05] MEDS ORDERED: DiphenhydrAMINE HCL 50 MG/ML VIAL IV PRN (15:45)
[2017-07-05] MEDS ORDERED: MoRPHine SULFATE 2 MG/ML CARP IV PRN (15:45)
[2017-07-05] MEDS ORDERED: MAGNESIUM HYDROXIDE SUSP 30 ML UDC PO PRN (15:45)
[2017-07-05] MEDS ORDERED: OXYCODONE/ACETAMINOPHEN 5-325 TAB PO PRN (15:45)
[2017-07-05] MEDS ORDERED: BISACODYL 10 MG SUPP PR PRN (15:45)
[2017-07-05] MEDS ORDERED: METOCLOPRAMIDE HCL INJ 5 MG/ML 2 ML VIAL IV PRN (15:45)
[2017-07-05] MEDS ORDERED: SOD PHOSPHATE/SOD BIPHOSPHATE ENEMA 132 ML BTL PR PRN (15:45)
[2017-07-05] MEDS ORDERED: ALUMINUM/MAGNESIUM/SIMETH (MAALOX MAX) 30 ML UDC PO PRN (15:45)
[2017-07-05] MEDS ORDERED: ZOLPIDEM TARTRATE 5 MG TAB PO PRN (15:45)
[2017-07-05] MEDS ORDERED: OXYCODONE HCL IR 5 MG TAB (IMMEDIATE RELEASE) PO PRN (15:45)
[2017-07-05] MEDS: FENTANYL CITRATE INJ 50 MCG/1 ML 2 ML VIAL IV PRN ×4 (15:46→16:03)
[2017-07-05] MEDS: HYDROmorphone HCL 0.5MG/ML 50 ML CASSETTE IV PRN ×3 (15:58→22:56)
[2017-07-05] MEDS: POTASSIUM CHLORIDE INJ 10 MEQ in SODIUM CHLORIDE 0.9% 1000ML 1,000 ML IV SCH (17:10)
[2017-07-05 17:41] LABS: HEMATOCRIT 29.4 % (42-52); HEMOGLOBIN 9.4 g/dL (14.0-18.0)
[2017-07-05] MEDS: FERROUS GLUCONATE 324 MG TAB PO SCH (18:10)
[2017-07-05] MEDS: LIDOCAINE HCL 2% VISCOUS SOLN 60 ML, DiphenhydrAMINE HCL SYRUP 150 MG, ALUMINUM/MAGNESI... MT PRN ×4 (18:12)
[2017-07-05] MEDS ORDERED: DOCUSATE SODIUM/SENNA 50/8.6MG TAB PO SCH (21:00)
[2017-07-05] MEDS: DOCUSATE SODIUM 100 MG CAP PO SCH (21:32)
[2017-07-05] MEDS: SENNA 8.6 MG TAB PO SCH (21:38)
[2017-07-05] MEDS: CEFAZOLIN IV 2,000 MG in SYRINGE 0 ML IV SCH (22:25)
[2017-07-06] MEDS: POTASSIUM CHLORIDE INJ 10 MEQ in SODIUM CHLORIDE 0.9% 1000ML 1,000 ML IV SCH ×3 (02:21→22:27)
[2017-07-06 03:31] VITALS: BP 126/81; PULSE 69; TEMP 36.7; O2SAT 93
--- NOTE | 2017-07-06 04:50 | Progress Note ---
Medicine Progress Note Date & Time of Visit: July 05, 2017 at 13:53. Subjective 77 yo M with mechanical mitral valve on coumadin therapy represents after a recent knee arthroscopy 3 weeks ago with now hemarthosis of the same R knee joint. He was given a Lovenox bridge for 5 days and did not have INR checked until 3 weeks later while in the ER with significant bruising and bleeding into the knee. He underwent an evacuation of the hematoma on 07/[address] Carreon and did well postoperatively for 24 hours. He did require 2 units of blood for post -operative anemia with an expected post-transfusion H/H. Heparin was started approx 30 hours post-op as a bridge to coumadin, however, approx 12 hours later , he developed significant pain in his knee up into his R thigh. An emergent us of the extremity revealed likely recurrent hemarthosis now extending into the R thigh. The pain began around 0600. His heparin was stopped and the case was discussed with Dr. Romero who did not recommend reversal with protamine at this time. His pain was extreme and causing elevated BP. His pain was treated aggressively and Ortho was notified. He went for a repeat hematoma evacuation later that afternoon by Dr. Daniel. A drain was placed intraoperatively. He was recovering well on the floor several hours later. was kept up to date throughout the day and was at bedside post-op. Objective Last 8 Hrs Date Time Temp Pulse Resp B/P (MAP) Pulse Ox O2 Delivery O2 Flow Rate FiO2 07/05/17 13:45 185/80 (115) 07/05/17 12:22 79 18 192/97 (128) 99 Mask 2.0 07/05/17 12:21 193/92 (125) 07/05/17 11:58 197/100 (132) 07/05/17 07:48 36.6 79 16 152/99 (116) 95 Room Air 07/05/17 07:10 Room Air Physical Exam: GEN: in extreme pain, alert and appropriate HEENT: NC/AT, normal sclerae CARDIO: tachy rate, S1/2 heard without m/g/r LUNGS: CTAB ABD: soft, non-tender, non-distended, ecchymosis in abdomen EXTREMITY: RLE with limited ROM and new effusion noted. Arhtroscopic sites are closed without drainage. R thigh is enlarged and is extremely painful to touch. NEURO: CN 2-12 grossly intact, no gross focal deficits. SKIN: warm and dry, ecchymosis as above. Laboratory Results: 07/05/17 03:52 Test 07/02/17 09:00 07/03/17 06:18 07/04/17 19:06 07/05/17 03:52 Red Blood Cell Morphology Unremarkable Globulin 3.7 gm/dl (2.5-4.0) Albumin/Globulin Ratio 0.9 (0.9-2) Magnesium Level 2.4 mg/dl (1.8-2.4) Total Bilirubin 1.3 mg/dl (0.2-1) Direct Bilirubin 0.4 mg/dl (0-0.2) Aspartate Amino Transf (AST/SGOT) 19 U/L (15-37) Alanine Aminotransferase (ALT/SGPT) 13 U/L (12-78) Alkaline Phosphatase 185 U/L (45-117) Total Protein 6.3 gm/dl (6.4-8.2) Albumin 3.0 gm/dl (3.4-5.0) Immature Granulocyte % (Auto) 0.3 % White Blood Count 7.40 K/uL (4.8-10.8) Red Blood Count 3.14 M/uL (4.7-6.1) Hemoglobin 9.2 g/dL (14.0-18.0) Hematocrit 28.8 % (42-52) Mean Corpuscular Volume 91.7 fL (80-100) Mean Corpuscular Hemoglobin 29.3 pg (25-34) Mean Corpuscular Hemoglobin Concent 31.9 g/dl (32-36) Platelet Count 272 K/uL (130-400) Mean Platelet Volume 9.4 fL (7.4-10.4) 9.0 fL (7.4-10.4) Neutrophils (%) (Auto) 82.5 % Lymphocytes (%) (Auto) 8.8 % Monocytes (%) (Auto) 7.8 % Eosinophils (%) (Auto) 0.5 % Basophils (%) (Auto) 0.1 % Neutrophils # (Auto) 6.10 K/uL (1.4-6.5) Lymphocytes # (Auto) 0.65 K/uL (1.2-3.4) Monocytes # (Auto) 0.58 K/uL (0.11-0.59) Eosinophils # (Auto) 0.04 K/uL (0-0.5) Basophils # (Auto) 0.01 K/uL (0-0.2) Immature Granulocyte # (Auto) 0.02 K/uL (0.00-0.02) RDW Standard Deviation 50.6 fL (36.4-46.3) RDW Coefficient of Variation 15.2 % (11.5-14.5) Anion Gap 4.0 mmol/L (3-11) Est Creatinine Clear Calc Drug Dose 72.9 ml/min Estimated GFR () 76.7 Estimated GFR (Non- 66.1 BUN/Creatinine Ratio 16.0 (10-20) Calcium Level 7.7 mg/dl (8.5-10.1) Test 07/06/17 04:44 Last 24 Hours Test 07/04/17 19:06 07/04/17 20:49 07/05/17 03:52 07/05/17 07:20 White Blood Count 7.40 K/uL 6.52 K/uL Red Blood Count 3.14 M/uL 2.94 M/uL Hemoglobin 9.2 g/dL 8.6 g/dL Hematocrit 28.8 % 27.0 % Mean Corpuscular Volume 91.7 fL 91.8 fL Mean Corpuscular Hemoglobin 29.3 pg 29.3 pg Mean Corpuscular Hemoglobin Concent 31.9 g/dl 31.9 g/dl Platelet Count 272 K/uL 224 K/uL Mean Platelet Volume 9.4 fL 9.0 fL Neutrophils (%) (Auto) 82.5 % Lymphocytes (%) (Auto) 8.8 % Monocytes (%) (Auto) 7.8 % Eosinophils (%) (Auto) 0.5 % Basophils (%) (Auto) 0.1 % Neutrophils # (Auto) 6.10 K/uL Lymphocytes # (Auto) 0.65 K/uL Monocytes # (Auto) 0.58 K/uL Eosinophils # (Auto) 0.04 K/uL Basophils # (Auto) 0.01 K/uL RDW Standard Deviation 49.8 fL 50.6 fL RDW Coefficient of Variation 15.1 % 15.2 % Immature Granulocyte % (Auto) 0.3 % Immature Granulocyte # (Auto) 0.02 K/uL Prothrombin Time 13.0 SECONDS 13.3 SECONDS Prothromb Time International Ratio 1.2 1.3 Activated Partial Thromboplast Time 28.2 SECONDS 81.5 SECONDS 58.3 SECONDS Partial Thromboplastin Ratio 1.1 3.1 2.2 Sodium Level 141 mmol/L Potassium Level 3.6 mmol/L Chloride Level 103 mmol/L Carbon Dioxide Level 34 mmol/L Anion Gap 4.0 mmol/L Blood Urea Nitrogen 17 mg/dl Creatinine 1.07 mg/dl Est Creatinine Clear Calc Drug Dose 72.9 ml/min Estimated GFR () 76.7 Estimated GFR (Non- 66.1 BUN/Creatinine Ratio 16.0 Random Glucose 123 mg/dl Calcium Level 7.7 mg/dl Diagnostic Imaging: RIGHT KNEE ULTRASOUND CLINICAL HISTORY: Right knee swelling, hematoma COMPARISON STUDY: Right leg ultrasound 07/03/2017. FINDINGS: There is again noted an 18 x 6 x 10 cm cm complex fluid collection within the anterolateral aspect of the right knee. This is likely similar in size and was likely underestimated on the prior study. This appears to be within the deep soft tissues or possibility represent a suprapatellar complex joint effusion. There again noted a few echogenic foci within this complex fluid collection. No associated color flow within the fluid collection. IMPRESSION: There is again noted an 18 x 6 x 10 cm complex fluid collection within the anterolateral aspect of the knee. This is similar in size and was likely underestimated on the prior study. The intact location is difficult to identify but is within the deep soft tissues and could represent a complex suprapatellar knee effusion. Assessment & Plan 77 yo M with mechanical mitral valve on coumadin therapy represents after a recent knee arthroscopy 3 weeks ago with now hemarthosis of the same R knee joint. He was given a Lovenox bridge for 5 days and did not have INR checked until 3 weeks later while in the ER with significant bruising and bleeding into the knee. He underwent an evacuation of the hematoma on 07/[address] Carreon and did well postoperatively for 24 hours. He did require 2 units of blood for post -operative anemia with an expected post-transfusion H/H. Heparin was started approx 30 hours post-op as a bridge to coumadin, however, approx 12 hours later , he developed significant pain in his knee up into his R thigh. An emergent us of the extremity revealed likely recurrent hemarthosis now extending into the R thigh. The pain began around 0600. His heparin was stopped and the case was discussed with Dr. Romero who did not recommend reversal with protamine at this time. His pain was extreme and causing elevated BP. His pain was treated aggressively and Ortho was notified. He went for a repeat hematoma evacuation later that afternoon by Dr. Daniel. A drain was placed intraoperatively. He was recovering well on the floor several hours later. was kept up to date throughout the day and was at bedside post-op. 1. R knee hemarthosis initially 2/2 supratherapeutic anticoagulation status post right knee arthroscopy-postop day 2. However, as anticoagulation was therapeutic and not supratherapeutic on the heparin drip, suspect his bleeding had more to do with poor wound healing and joint capsule interruption, which was closed surgically on 07/05. Doing well post-operatively and is on a SAP MANAGER pump. 2. s/p mechanical mitral valve-goal INR 2.5-3.5. Will plan to consult Cardiology for assistance with in-hospital bridging to therapy and when that may be appropriate to start. 3. Chronic atrial fibrillation-rate is controlled with verapamil. Anticoagulation as above 4. HTN-somewhat uncontrolled 2/2 pain, cont cozaar and aggressive pain management. 5. 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 6. Acute posthemorrhagic anemia-required 2 units of blood. Monitoring H/H closely. No indication for transfusion after second washout. DVT proph-SCDs for now. Will need heparin drip as bridge to coumadin therapy but would start this cautiously and wait longer to start if ok by Cardiology. Full Code Dispo-likely will stay in the hospital for approx 5 days with heparin bridge to coumadin post-operatively. Expect him to go home after that. Pt has with MS who cannot drive and has custody of his great grandchildren who are 14 and 17 yrs old. He cares for all of them so is eager to get home zenaida. DO [facility] Hospital[facility] Consultants: Orthopedics-Dr. Shukri Price. Current Inpatient Medications: Current Inpatient Medications Medications (Trade) Dose Ordered Sig/Maryjane Route Start Time Stop Time Status Last Admin Dose Admin Acetaminophen (Tylenol Tab) 650 mg Q4H PRN PO 07/02/17 10:45 08/01/17 10:44 07/04/17 19:46 650 MG Ondansetron HCl (Zofran Inj) 4 mg Q6H PRN IV 07/02/17 10:45 08/01/17 10:44 Losartan Potassium (coZAAR TAB) 100 mg DAILY PO 07/02/17 13:15 08/01/17 13:59 07/05/17 08:44 100 MG Hydralazine HCl (HydrALAZINE INJ) 10 mg Q8 PRN IV. 07/02/17 13:15 08/01/17 13:14 Verapamil HCl (Calan-Sr Tab) 120 mg BID PO 07/02/17 21:00 08/01/17 20:59 07/05/17 08:43 120 MG Miscellaneous (Iv Fluids Completed) 1 ea PRN PRN N/A 07/02/17 13:45 07/02/18 13:44 Potassium Chloride (Klor-Con Tab) 20 meq BID PO 07/03/17 09:00 08/01/17 20:59 Lidocaine HCl/ Diphenhydramine HCl/Al Hydroxide/ Mg Hydroxide/ Glycerin/Barcode TID PRN MT 07/03/17 13:15 08/02/17 13:14 Heparin Sodium/ Dextrose 500 ml @ 29 mls/hr [id number] IV 07/04/17 21:15 08/03/17 21:14 Future Hold 07/05/17 07:00 29 MLS/HR Naloxone HCl (Narcan Inj) 0.1 mg Q5M PRN IV 07/05/17 13:30 08/04/17 13:29 Hydromorphone HCl (Dilaudid Textbook Associate) 25 mg PRN PRN IV 07/05/17 13:30 07/19/17 13:29 Senna/Docusate Sodium (Senokot S Tab) 1 tab BID PO 07/05/17 21:00 08/04/17 20:59 Sodium Chloride 1,000 ml @ 15 mls/hr Q24H IV 07/05/17 13:18 08/04/17 13:17
[2017-07-06] MEDS: CEFAZOLIN IV 2,000 MG in SYRINGE 0 ML IV SCH (06:33)
[2017-07-06] MEDS: HYDROmorphone HCL 0.5MG/ML 50 ML CASSETTE IV PRN ×3 (07:07→23:08)
[2017-07-06 07:32] VITALS: BP 151/82; PULSE 71; TEMP 36.9; O2SAT 94
[2017-07-06] MEDS ORDERED: KETOROLAC TROMETHAMINE 15 MG/ML VIAL IV ONE (08:00)
--- NOTE | 2017-07-06 08:00 | Orthopedic Progress Note ---
Orthopedic Progress Note Date of Service July 06, 2017. Subjective Post OP Day: 1 Additional Notes: c/o pain around the operative knee this AM. States that all of the pain in his thigh is gone. Most of his pain is focused on the knee now. Discussed that Dr Daniel had to enlarge the one incision to help evacuate the hematoma and that he may have more pain in that area. 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 Denies SOB, CP, LH Objective calves soft nontender, N/V intact, dressing C/D/I, A&O x3, toes mobile, hemovac drainage Date Time Temp Pulse Resp B/P (MAP) Pulse Ox O2 Delivery O2 Flow Rate FiO2 07/06/17 03:31 36.7 69 16 126/81 (96) 93 Room Air 07/06/17 00:00 Room Air 07/05/17 23:03 36.8 67 16 141/74 (96) 92 Room Air 07/05/17 19:45 36.9 64 15 145/84 (104) 98 Nasal Cannula 2.0 07/05/17 18:45 36.6 65 15 158/76 (103) 99 Nasal Cannula 2.0 07/05/17 17:45 36.7 69 15 162/88 (112) 99 Nasal Cannula 2.0 07/05/17 17:15 36.9 64 15 168/77 (107) 98 Nasal Cannula 2.0 07/05/17 16:45 36.8 72 16 172/93 (119) 100 Nasal Cannula 3.0 07/05/17 16:45 Nasal Cannula 07/05/17 16:45 97 Nasal Cannula 3.0 07/05/17 16:25 77 16 172/93 99 Nasal Cannula 3 07/05/17 16:15 37.7 67 18 157/93 99 Nasal Cannula 3 07/05/17 16:05 70 20 171/89 99 Nasal Cannula 3 07/05/17 15:55 73 20 176/103 100 Oxymask 10 07/05/17 15:45 72 16 169/93 100 Oxymask 10 07/05/17 15:37 37.6 67 18 180/94 98 Oxymask 10 07/05/17 13:45 185/80 (115) 07/05/17 12:22 79 18 192/97 (128) 99 Mask 2.0 07/05/17 12:21 193/92 (125) 07/05/17 11:58 197/100 (132) Laboratory Results 24 Hours: Test 07/05/17 17:21 07/06/17 07:06 Hematocrit 29.4 % Hemoglobin 9.4 g/dL Assessment & Plan Assessment: POD #1 s/p Evacuation of hematoma, right knee x 2 - Plan: PT/OT WBAT Continue drains for the next day or two per Dr Daniel Will discuss anticoagulation with Med Service One dose of Toradol ordered Inhouse Planning Pain Management: 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
[2017-07-06 08:07] LABS: HEMATOCRIT 27.3 % (42-52); HEMOGLOBIN 8.9 g/dL (14.0-18.0); MEAN CELL VOLUME 91.6 fL (80-100); MEAN CORPUSCULAR HEMOGLOBIN 29.9 pg (25-34); MEAN CORPUSCULAR HGB CONC 32.6 g/dl (32-36); MEAN PLATELET VOLUME 9.6 fL (7.4-10.4); PLATELET COUNT 272 K/uL (130-400); RED CELL DISTRIBUTION WIDTH CV 14.9 % (11.5-14.5); RED CELL DISTRIBUTION WIDTH SD 49.1 fL (36.4-46.3); WHITE BLOOD COUNT 8.17 K/uL (4.8-10.8)
[2017-07-06 08:16] LABS: INR 1.4 (0.9-1.1); PTT PATIENT 28.6 SECONDS (21.0-31.0)
[2017-07-06] MEDS: POTASSIUM CHLORIDE 20 MEQ TABCR PO SCH ×2 (09:00→20:38)
[2017-07-06] MEDS: LOSARTAN POTASSIUM 50 MG TAB PO SCH (09:02)
[2017-07-06] MEDS: FERROUS GLUCONATE 324 MG TAB PO SCH ×3 (09:03→17:40)
[2017-07-06] MEDS: DOCUSATE SODIUM 100 MG CAP PO SCH ×2 (09:03→20:37)
[2017-07-06] MEDS: VERAPAMIL HCL 120 MG TABCR PO SCH ×2 (09:03→20:37)
[2017-07-06] MEDS: PANTOprazole SOD 40 MG TAB PO SCH (09:03)
[2017-07-06] MEDS: MULTIVITAMIN TAB PO SCH (09:03)
[2017-07-06] MEDS: LIDOCAINE HCL 2% VISCOUS SOLN 60 ML, DiphenhydrAMINE HCL SYRUP 150 MG, ALUMINUM/MAGNESI... MT PRN ×4 (09:06)
[2017-07-06] MEDS: SODIUM CHLORIDE 0.9% 1000ML 1,000 ML IV SCH (12:26)
--- NOTE | 2017-07-06 12:30 | Progress Note ---
Medicine Progress Note Date & Time of Visit: July 06, 2017 at 12:24. Subjective 07/06: Pain is managed with a Dilaudid CLINICAL NURSING DIRECTOR. The patient is pushing the CLINICAL NURSING DIRECTOR maximally more out of. We discussed the addition of the Toradol this morning as well as scheduled Tylenol and background. Will monitor closely for constipation. Drain is in place appreciate their recommendations. He is tolerating p.o. and otherwise denies any chest pain, shortness of breath, or other symptoms at this time. Objective Last 8 Hrs Date Time Temp Pulse Resp B/P (MAP) Pulse Ox O2 Delivery O2 Flow Rate FiO2 07/06/17 08:30 Room Air 07/06/17 07:32 36.9 71 20 151/82 (105) 94 Room Air Physical Exam: GEN:in no acute distress, alert and appropriate HEENT: NC/AT, normal sclerae CARDIO: reg rate, S1/2 heard without m/g/r LUNGS: CTAB ABD: soft, non-tender, non-distended, ecchymosis in abdomen EXTREMITY: RLE with limited ROM, wrapped with ACEI postoperatively. Dressing is c/d/i. NEURO: CN 2-12 grossly intact, no gross focal deficits. SKIN: warm and dry, incision sites were not viewed 2/2 surgical dressing and knee immobilizer. Laboratory Results: 07/06/17 07:06 07/05/17 03:52 Test 07/02/17 09:00 07/03/17 06:18 07/04/17 19:06 07/05/17 03:52 Red Blood Cell Morphology Unremarkable Globulin 3.7 gm/dl (2.5-4.0) Albumin/Globulin Ratio 0.9 (0.9-2) Magnesium Level 2.4 mg/dl (1.8-2.4) Total Bilirubin 1.3 mg/dl (0.2-1) Direct Bilirubin 0.4 mg/dl (0-0.2) Aspartate Amino Transf (AST/SGOT) 19 U/L (15-37) Alanine Aminotransferase (ALT/SGPT) 13 U/L (12-78) Alkaline Phosphatase 185 U/L (45-117) Total Protein 6.3 gm/dl (6.4-8.2) Albumin 3.0 gm/dl (3.4-5.0) Immature Granulocyte % (Auto) 0.3 % White Blood Count 7.40 K/uL (4.8-10.8) Red Blood Count 3.14 M/uL (4.7-6.1) Hemoglobin 9.2 g/dL (14.0-18.0) Hematocrit 28.8 % (42-52) Mean Corpuscular Volume 91.7 fL (80-100) Mean Corpuscular Hemoglobin 29.3 pg (25-34) Mean Corpuscular Hemoglobin Concent 31.9 g/dl (32-36) Platelet Count 272 K/uL (130-400) Mean Platelet Volume 9.4 fL (7.4-10.4) Neutrophils (%) (Auto) 82.5 % Lymphocytes (%) (Auto) 8.8 % Monocytes (%) (Auto) 7.8 % Eosinophils (%) (Auto) 0.5 % Basophils (%) (Auto) 0.1 % Neutrophils # (Auto) 6.10 K/uL (1.4-6.5) Lymphocytes # (Auto) 0.65 K/uL (1.2-3.4) Monocytes # (Auto) 0.58 K/uL (0.11-0.59) Eosinophils # (Auto) 0.04 K/uL (0-0.5) Basophils # (Auto) 0.01 K/uL (0-0.2) Immature Granulocyte # (Auto) 0.02 K/uL (0.00-0.02) Anion Gap 4.0 mmol/L (3-11) Est Creatinine Clear Calc Drug Dose 72.9 ml/min Estimated GFR () 76.7 Estimated GFR (Non- 66.1 BUN/Creatinine Ratio 16.0 (10-20) Calcium Level 7.7 mg/dl (8.5-10.1) Test 07/06/17 07:06 Red Blood Count 2.98 M/uL (4.7-6.1) Mean Corpuscular Volume 91.6 fL (80-100) Mean Corpuscular Hemoglobin 29.9 pg (25-34) Mean Corpuscular Hemoglobin Concent 32.6 g/dl (32-36) RDW Standard Deviation 49.1 fL (36.4-46.3) RDW Coefficient of Variation 14.9 % (11.5-14.5) Mean Platelet Volume 9.6 fL (7.4-10.4) Prothrombin Time 14.8 SECONDS (9.0-12.0) Prothromb Time International Ratio 1.4 (0.9-1.1) Activated Partial Thromboplast Time 28.6 SECONDS (21.0-31.0) Partial Thromboplastin Ratio 1.1 Last 24 Hours Test 07/05/17 17:21 07/06/17 07:06 Hemoglobin 9.4 g/dL 8.9 g/dL Hematocrit 29.4 % 27.3 % White Blood Count 8.17 K/uL Red Blood Count 2.98 M/uL Mean Corpuscular Volume 91.6 fL Mean Corpuscular Hemoglobin 29.9 pg Mean Corpuscular Hemoglobin Concent 32.6 g/dl RDW Standard Deviation 49.1 fL RDW Coefficient of Variation 14.9 % Platelet Count 272 K/uL Mean Platelet Volume 9.6 fL Prothrombin Time 14.8 SECONDS Prothromb Time International Ratio 1.4 Activated Partial Thromboplast Time 28.6 SECONDS Partial Thromboplastin Ratio 1.1 Assessment & Plan 77 yo M with mechanical mitral valve on coumadin therapy represents after a recent knee arthroscopy 3 weeks ago with now hemarthosis of the same R knee joint. He was given a Lovenox bridge for 5 days and did not have INR checked until 3 weeks later while in the ER with significant bruising and bleeding into the knee. He underwent an evacuation of the hematoma on 07/[address] Carreon and did well postoperatively for 24 hours. He did require 2 units of blood for post -operative anemia with an expected post-transfusion rise in H/H. Heparin was started approx 30 hours post-op as a bridge to coumadin, however, approx 12 hours later, he developed significant pain in his knee up into his R thigh. An emergent us of the extremity revealed likely recurrent hemarthosis now extending into the R thigh. The pain began around 0600. His heparin was stopped and the case was discussed with Dr. Romero who did not recommend reversal with protamine at this time. His pain was extreme and causing elevated BP. His pain was treated aggressively and Ortho was notified. He went for a repeat hematoma evacuation later that afternoon by Dr. Daniel. A drain was placed intraoperatively. He was recovering well on the floor several hours later. was kept up to date throughout the day and was at bedside post-op. 07/06: Pain is managed with a Dilaudid CLINICAL NURSING DIRECTOR. The patient is pushing the CLINICAL NURSING DIRECTOR maximally more out of. We discussed the addition of the Toradol this morning as well as scheduled Tylenol and background. Will monitor closely for constipation. Drain is in place appreciate their recommendations. He is tolerating p.o. and otherwise denies any chest pain, shortness of breath, or other symptoms at this time. 1. R knee hemarthosis initially 2/2 supratherapeutic anticoagulation status post right knee arthroscopy with repeat hematoma evacuation yesterday (07/05) Doing well postoperatively on CLINICAL NURSING DIRECTOR. Will attempt better pain control with scheduled Tylenol. Currently drain is in place. 2. s/p mechanical mitral valve-goal INR 2.5-3.5. Cardiology for assistance with in-hospital bridging to therapy and when that may be appropriate to start. 3. Chronic atrial fibrillation-rate is controlled with verapamil. Anticoagulation as above 4. HTN-controlled, continue Cozaar and aggressive pain management. 5. 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 6. Acute posthemorrhagic anemia-required 2 units of blood. H&H is currently stable, no indication for additional transfusion at this time. DVT proph-SCDs for now. Will need heparin drip as bridge to coumadin therapy but would start this cautiously and wait longer to start if ok by Cardiology. Full Code Dispo-likely will stay in the hospital for approx 5 days with heparin bridge to coumadin post-operatively. Expect him to go home after that. Pt has with MS who cannot drive and has custody of his great grandchildren who are 14 and 17 yrs old. He cares for all of them so is eager to get home zenaida. Anita Fleming DO [facility] Hospitalist Consultants: Orthopedics-Dr. Daniel Cardiology-Dr. Aurelio Briggs Current Inpatient Medications: Current Inpatient Medications Medications (Trade) Dose Ordered Sig/Maryjane Route Start Time Stop Time Status Last Admin Dose Admin Acetaminophen (Tylenol Tab) 650 mg Q4H PRN PO 07/02/17 10:45 08/01/17 10:44 07/04/17 19:46 650 MG Ondansetron HCl (Zofran Inj) 4 mg Q6H PRN IV 07/02/17 10:45 08/01/17 10:44 Losartan Potassium (coZAAR TAB) 100 mg DAILY PO 07/02/17 13:15 08/01/17 13:59 07/06/17 09:02 100 MG Hydralazine HCl (HydrALAZINE INJ) 10 mg Q8 PRN IV. 07/02/17 13:15 08/01/17 13:14 Verapamil HCl (Calan-Sr Tab) 120 mg BID PO 07/02/17 21:00 08/01/17 20:59 07/06/17 09:03 120 MG Miscellaneous (Iv Fluids Completed) 1 ea PRN PRN N/A 07/02/17 13:45 07/02/18 13:44 Potassium Chloride (Klor-Con Tab) 20 meq BID PO 07/03/17 09:00 08/01/17 20:59 Lidocaine HCl/ Diphenhydramine HCl/Al Hydroxide/ Mg Hydroxide/ Glycerin/Barcode TID PRN MT 07/03/17 13:15 08/02/17 13:14 07/06/17 09:06 5 ML Heparin Sodium/ Dextrose 500 ml @ 29 mls/hr [id number] IV 07/04/17 21:15 08/03/17 21:14 Future Hold 07/05/17 07:00 29 MLS/HR Naloxone HCl (Narcan Inj) 0.1 mg Q5M PRN IV 07/05/17 13:30 08/04/17 13:29 Hydromorphone HCl (Dilaudid Jailer/Training Officer) 25 mg PRN PRN IV 07/05/17 13:30 07/19/17 13:29 07/06/17 07:07 25 MG Sodium Chloride 1,000 ml @ 15 mls/hr Q24H IV 07/05/17 13:18 08/04/17 13:17 Potassium Chloride 10 meq/ Sodium Chloride 1,005 ml @ 100 mls/hr Q10H3M IV 07/05/17 16:30 08/04/17 16:29 07/06/17 02:21 100 MLS/HR Magnesium Hydroxide (Milk Of Magnesia Susp) 30 ml Q6H PRN PO 07/05/17 15:45 08/04/17 15:44 Bisacodyl (Dulcolax Supp) 10 mg DAILY PRN MN 07/05/17 15:45 08/04/17 15:44 Sodium Biphosphate/ Sodium Phosphate (Fleet Enema) 132 ml DAILY PRN MN 07/05/17 15:45 08/04/17 15:44 Senna (Senokot Tab) 17.2 mg HS PO 07/05/17 21:00 08/04/17 20:59 07/05/17 21:38 17.2 MG Docusate Sodium (coLACE CAP) 100 mg BID PO 07/05/17 21:00 08/04/17 20:59 07/06/17 09:03 100 MG Diphenhydramine HCl (Benadryl Cap) 25 mg Q8H PRN PO 07/05/17 15:45 08/04/17 15:44 Diphenhydramine HCl (Benadryl Inj) 25 mg Q8H PRN IV 07/05/17 15:45 08/04/17 15:44 Al Hydrox/Mg Hydrox/Simethicone (Maalox Max Susp) 15 ml Q4H PRN PO 07/05/17 15:45 08/04/17 15:44 Multivitamins (Multivitamin Tab) 1 tab QAM PO 07/06/17 09:00 08/05/17 08:59 07/06/17 09:03 1 TAB Metoclopramide HCl (Reglan Inj) 10 mg Q6H PRN IV 07/05/17 15:45 08/04/17 15:44 Ferrous Gluconate (Ferrous Gluconate Tab) 324 mg TIDM PO 07/05/17 17:45 08/04/17 17:44 07/06/17 09:03 324 MG Pantoprazole Sodium (Protonix Tab) 40 mg QAM PO 07/06/17 09:00 07/09/17 09:01 07/06/17 09:03 40 MG
[2017-07-06 15:10] VITALS: BP 122/77; PULSE 61; TEMP 36.7; O2SAT 92
[2017-07-06] MEDS: ACETAMINOPHEN 500 MG TAB PO SCH ×2 (15:22→21:31)
[2017-07-06] MEDS ORDERED: WARFARIN SOD 5 MG TAB PO ONE (16:45)
--- NOTE | 2017-07-06 18:55 | EMERGENCY ROOM VISIT NOTE ---
History First contact with patient: 08:41 Chief Complaint: KNEEPAIN Stated Complaint: HEMARTHROSIS,HYPOKALEMIA History of Present Illness The patient is a 77 year old white male who presents to the Emergency Room with complaints of bleeding coming from his right knee. Patient states that he had a knee arthroscopy performed [address] Daniel. He had his stitches taken out earlier this week. He developed a postoperative hemarthrosis and had his knee drained twice at the office. He noticed significant amount of blood on his sheets this morning and became concerned. He came to the ED for evaluation. He does have a Band-Aid over the lateral portal. He denies any numbness or tingling. He is having difficulty with ambulation as well as pain control due to the amount of swelling in his knee. He denies any falls or other trauma to the knee. He denies bleeding from anywhere else. He is on chronic Coumadin. He has been taking his Coumadin daily and states he is scheduled for his INR check on . This will be his first check since resuming after surgery. He was on the Lovenox bridge at the time of surgery. No numbness or tingling. No other complaints. He takes his Coumadin because of a mechanical heart valve. There is also history of CVA and A. fib. Review of Systems REVIEW OF SYSTEM: HEENT: No dizziness, visual problems, hearing loss, or tinnitus. There is no difficulty swallowing and no oral lesions are present. LYMPH: No adenopathy. PULMONARY: No cough, shortness of breath, sputum production or hemoptysis. CARDIOVASCULAR: No chest pain, shortness of breath or peripheral edema. GASTROINTESTINAL: No diarrhea, constipation, nausea, vomiting, or abdominal pain. GENITOURINARY: No dysuria, frequency, urgency or nocturia. NEUROLOGIC: No weakness, muscle tenderness, epilepsy or history of neurological problems. MUSCULOSKELETAL: No history of joint tenderness/swelling. Positive history of arthritis and arthralgias. SKIN: No rashes or lesions. PSYCHIATRIC: No history of depression or mental illness. ENDOCRINE: No history of diabetes, thyroid disorders, or abnormal hair growth. Past Medical/Surgical History Medical Problems: (1) Anticoagulated on warfarin (2) Atrial Fibrillation (3) Cerebrovascular disease (4) Chronic pulmonary aspiration (5) Hemarthrosis (6) Hematoma (7) History of lower GI bleeding (8) History of oral cancer (9) Hypertension (10) Hypertension Nos (11) Hypokalemia (12) Tinnitus Nos Surgical Problems: (1) H/O colonoscopy (2) H/O mitral valve replacement with mechanical valve (3) History of dental surgery (4) History of mandibular surgery (5) S/P cholecystectomy (6) S/P ERCP Family History Diabetes mellitus SISTER Social History Smoking Status: Never Smoker Smokeless Tobacco Use: No Alcohol Use: none Marital Status: Housing Status: lives with family Occupation Status: retired Current/Historical Medications Scheduled Losartan Potassium (Cozaar), 100 MG PO DAILY Verapamil (Calan), 120 MG PO BID Warfarin Sod (Coumadin), 2.5 MG PO [id number] Warfarin Sodium (Warfarin Sodium), 1 TAB PO 4XWK Scheduled PRN Furosemide (Furosemide), 20 MG PO HS PRN for edema Indomethacin (Indocin), 25 MG PO TIDM PRN for GOUT Potassium Chloride (K-Tab), 20 MEQ PO UD PRN for with furosemide Allergies Coded Allergies: Allopurinol (Verified Allergy, Unknown, COUGH, 07/02/17) Lisinopril (Verified Adverse Reaction, Unknown, COUGH, 07/02/17) Physical Exam Vital Signs Date Time Temp Pulse Resp B/P (MAP) Pulse Ox O2 Delivery O2 Flow Rate FiO2 07/02/17 11:41 79 20 07/02/17 11:30 82 18 165/95 07/02/17 11:15 83 17 167/92 07/02/17 11:09 96 Room Air 07/02/17 11:00 79 16 168/90 96 07/02/17 10:45 75 13 172/88 96 Room Air 07/02/17 10:35 87 07/02/17 10:34 79 13 174/92 96 07/02/17 10:20 80 18 182/95 96 07/02/17 08:36 36.6 77 20 140/86 93 Room Air Physical Exam General: Well-developed, well-nourished, elderly white male, in no acute distress. Obvious discomfort. Laying on the bed. Alert and oriented. Skin: Warm and dry with fair turgor. No rashes or lesions. No erythema. He has a large effusion in the right knee. There is ecchymosis present. No significant warmth. Knee is tense. The patient is not diaphoretic. No abrasions. 2 small scabbed arthroscopic portals are present at the joint line. Lateral one has a very mild ooze. Pressure dressing is in place. Heart: Heart RRR. No MGR. Peripheral pulses are 2+. Lungs: Lungs are clear to auscultation. No crackles rhonchi or wheezing. Good air movement. The patient is able to take a deep breath. Abdomen: Abdomen was inspected, auscultated, and palpated. Obese. Bowel sounds present x 4. Soft, nontender to palpation. No hepato-splenomegaly. No masses noted. No rebound. Musculoskeletal: Right knee evaluation reveals a tense knee joint. Large effusion. He lacks full terminal extension secondary to pain. Flexion to around 40 secondary to pain. Stable collateral ligaments. No focal discomfort with palpation over the medial or lateral joint lines. No palpable defect in the patellar tendon or quadriceps tendon. Intact motor function to his ankle. No gastroc discomfort. Neurologic: Gross sensation is intact across the right leg by soft touch. Peripheral pulses are 1+. Medical Decision & Procedures Laboratory Results Test 07/02/17 09:00 Red Blood Cell Morphology Unremarkable Globulin 3.7 gm/dl (2.5-4.0) Albumin/Globulin Ratio 0.9 (0.9-2) CBC, chem panel, PT/INR were obtained. INR is greater than 10 with a PT greater than 100. H&H are low with hemoglobin at 8.8. He does not require transfusion. Medications Administered Medications (Trade) Dose Ordered Sig/Maryjane Route Start Time Stop Time Status Last Admin Dose Admin Phytonadione 2.5 mg/Sodium Chloride 50.25 ml @ 100.5 mls/ hr ONE ONCE IV 07/02/17 10:00 07/02/17 10:29 DC 07/02/17 10:20 100.5 MLS/HR Acetaminophen (Tylenol Tab) 650 mg Q4H PRN PO 07/02/17 10:45 07/06/17 12:25 DC 07/04/17 19:46 650 MG Vitamin K 2.5 mg IV ED Course Patient was educated regarding today's findings. Conservative care measures were discussed. He was seen in B12. IV was established. Labs were obtained. He has a large hemarthrosis. PT was greater than 100 and INR was found to be greater than 10. I did speak with Dr. Romero regarding his anticoagulation. She recommended vitamin K 2.5 mg IV and a recheck of his PT/INR in 6 hours. He will require admission. I did speak with the patient about this. He states he has an ill at home and does her care. He would like to be discharged from here as soon as possible. I did explain the danger of trying to manage this hypocoagulation at home. He is in agreement and agrees to admission. Hospitalist service was consulted. Please see that dictation for final management. Patient remained stable while in the ED. vitamin K was given. I did speak with Dr. Price from orthopedics to make him aware. Patient was seen in conjunction with Dr. Tyler, who also evaluated the patient and concurred with today's diagnosis and treatment plan. Medical Decision Possibility of joint infection, hemarthrosis, postsurgical complication, DVT, tendon rupture, or internal derangement were all considered. Impression Primary Impression: Anticoagulated on warfarin Additional Impression: Hemarthrosis Departure Information Dispostion Home / Self-Care Referrals Cosme Medellin PA-C (PCP) Forms HOME CARE DOCUMENTATION FORM, IMPORTANT VISIT INFORMATION Patient Instructions My [facility] Problem Qualifiers
[2017-07-06 19:30] VITALS: BP 124/72; PULSE 71; TEMP 36.5; O2SAT 94
[2017-07-06] MEDS: SENNA 8.6 MG TAB PO SCH (20:37)
[2017-07-06 22:01] LABS: EOS % 0.2 %; EOS ABS # 0.01 K/uL (0-0.5); HEMOGLOBIN 7.5 g/dL (14.0-18.0); IG# 0.01 K/uL (0.00-0.02); LYMPH % 11.7 %; LYMPH ABS # 0.73 K/uL (1.2-3.4); MEAN CELL VOLUME 92.7 fL (80-100); MONO ABS # 0.25 K/uL (0.11-0.59); NEUT % 83.9 %; NEUT ABS # 5.26 K/uL (1.4-6.5); PLATELET COUNT 238 K/uL (130-400); RED CELL DISTRIBUTION WIDTH CV 15.1 % (11.5-14.5); RED CELL DISTRIBUTION WIDTH SD 51.2 fL (36.4-46.3); WHITE BLOOD COUNT 6.26 K/uL (4.8-10.8)
[2017-07-06 22:02] LABS: MEAN CORPUSCULAR HGB CONC 31.3 g/dl (32-36)
[2017-07-06] MEDS: HEPARIN 25,000 UNIT/500ML D5W 500 ML IV SCH ×2 (22:14→23:07)
[2017-07-06 22:17] LABS: INR 1.6 (0.9-1.1)
[2017-07-06 22:59] VITALS: BP 111/71; PULSE 71; TEMP 36.4; O2SAT 94
[2017-07-07] VITALS (13 sets, daily range): BP systolic 127–185; BP diastolic 71–95; PULSE 50–88; TEMP 36.3–37.4; O2SAT 91–95
[2017-07-07 04:57] LABS: HEMATOCRIT 23.4 % (42-52); HEMOGLOBIN 7.3 g/dL (14.0-18.0); MEAN CELL VOLUME 93.2 fL (80-100); MEAN CORPUSCULAR HEMOGLOBIN 29.1 pg (25-34); MEAN CORPUSCULAR HGB CONC 31.2 g/dl (32-36); MEAN PLATELET VOLUME 9.1 fL (7.4-10.4); PLATELET COUNT 236 K/uL (130-400); RED CELL DISTRIBUTION WIDTH CV 15.1 % (11.5-14.5); WHITE BLOOD COUNT 5.97 K/uL (4.8-10.8)
[2017-07-07 05:20] LABS: INR 1.7 (0.9-1.1)
[2017-07-07] MEDS: ACETAMINOPHEN 500 MG TAB PO SCH ×3 (05:37→20:31)
[2017-07-07 06:04] LABS: PTT PATIENT 63.2 SECONDS (21.0-31.0)
[2017-07-07] MEDS: HYDROmorphone HCL 0.5MG/ML 50 ML CASSETTE IV PRN ×3 (06:54→23:00)
[2017-07-07] MEDS: POTASSIUM CHLORIDE INJ 10 MEQ in SODIUM CHLORIDE 0.9% 1000ML 1,000 ML IV SCH ×2 (07:12→15:56)
[2017-07-07] MEDS: FERROUS GLUCONATE 324 MG TAB PO SCH ×3 (08:32→18:16)
[2017-07-07] MEDS: VERAPAMIL HCL 120 MG TABCR PO SCH ×2 (08:32→20:23)
[2017-07-07] MEDS: POTASSIUM CHLORIDE 20 MEQ TABCR PO SCH ×2 (08:32→20:23)
[2017-07-07] MEDS: DOCUSATE SODIUM 100 MG CAP PO SCH ×2 (08:32→20:24)
[2017-07-07] MEDS: MULTIVITAMIN TAB PO SCH (08:33)
[2017-07-07] MEDS: PANTOprazole SOD 40 MG TAB PO SCH (08:33)
[2017-07-07] MEDS: LOSARTAN POTASSIUM 50 MG TAB PO SCH (08:33)
--- NOTE | 2017-07-07 10:55 | Cardiology Consultation ---
Cardiology Consultation Date of Service July 07, 2017. (Shabana Arcos, KACI) Cardiology Consultation HPI: The patient is a complex 76-year-old male who follows with Dr. Milan/ Kamryn as outpatient for [facility]. 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 2.History of past atrial arrhythmias now in chronic atrial fibrillation with rate control. 3.Labile hypertension. 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 5.History of acute lower GI bleed in December of 2015. 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 7. Expressive aphasia in setting of sub therapeutic INR September 2016 with MRI demonstrating new infarct in the left parietal lobe Patient was admitted for recurrent right knee hematoma. Underwent evacuation of hematoma x2 since admission. Now drain in place. Unfortunately due to mechanical valve, unable to hold anticoagulation therapy. He has received 2 Units PRBC's since admission. Right knee pain improving at time of consult. Patient denies cardiac concerns at this time. Denies chest pain or SOB. Review of Systems: See HPI for pertinent positives. All other 10 point review of systems is negative. 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 C09.0 Neutropenia Unilateral inguinal hernia HYPERTENSIVE HEART DZ Lower GI bleed requiring more than 4 units of blood in 24 hours Acute blood loss anemia D62 History of CVA (cerebrovascular accident) without residual deficits Chronic atrial fibrillation I48.2 Hypertension goal BP (blood pressure) < 130/80 Past Surgical History: Procedure Laterality Date COLONOSCOPY, DIAGNOSTIC (RECTUM) 01/13/2016 polyps, bleeding ulcer, diverticulosis/INPT [facility] COLONOSCOPY, DIAGNOSTIC (RECTUM) N/A 01/18/2016 COLONOSCOPY FLEXIBLE PROXIMAL DIAGNOSTIC performed by Chester Joaquin DO [place] [facility] ERCP, DIAGNOSTIC, SPECIMEN COLLECTION 08/01/2014 ENDOSCOPIC RETROGRADE CHOLANGIOPANCREATOGRAPHY (ERCP) DIAGNOSTIC performed by Eric Leger DO at [place] [facility] ERCP, DIAGNOSTIC, SPECIMEN COLLECTION 09/18/2014 ENDOSCOPIC RETROGRADE CHOLANGIOPANCREATOGRAPHY (ERCP) DIAGNOSTIC performed by Eric Leger DO at [place] [facility] INFORMATION 01/17/2003 teeth extraction JAW ARTHROSCOPY/SURGERY 1960s jaw wired post-fracture LAPAROSCOPY, CHOLECYSTECTOMY WITH CHOLANGIOGRAPHY N/A 07/30/2014 LAPAROSCOPIC CHOLECYSTECTOMY WITH CHOLANGIOGRAM performed by Nico Henley MD [place] [facility] LAPAROSCOPY; REPAIR INITIAL INGUINAL HERNIA L inguinal hernia RADIATION TREATMENT AID(S), COMPLEX 2002 Mouth, tongue and tonsil [facility] REPLACE MITRAL VALVE W/BYPASS 1994 Mitral Valve Replacement; [facility] Family History Problem Relation Age of Onset Cancer Mother skin on face Diabetes Sister Hypertension ""everyone"" [OTHER] Heart Disorder none [OTHER] Mental Disorder Sister anxiety Stroke none [OTHER] Social History Substance Use Topics Smoking status: Never Smoker Smokeless tobacco: Never Used Alcohol use No Review of patient's allergies indicates: Allergen Reactions Lisinopril Cough Allopurinol Cough Reported Home Medications Medications Dose Route/Sig Max Daily Dose Days Date Category Dose Instructions Indocin (Indomethacin) 25 Mg Cap 25 Mg PO TIDM PRN 07/02/17 Reported Coumadin (Warfarin Sod) 2.5 Mg Tab 2.5 Mg PO 3XWK 04/06/17 Reported Mon, wed, Fri Warfarin Sodium 5 Mg Tab 1 Tab PO 4XWK 04/06/17 Reported tues, thurs, sat, sun Calan (Verapamil HCl) 120 Mg Tab 120 Mg PO BID 01/25/17 Reported Cozaar (Losartan Potassium) 100 Mg Tab 100 Mg PO DAILY 01/25/17 Reported K-Tab (Potassium Chloride) 20 Meq Tab 20 Meq PO UD PRN 04/04/16 Reported Furosemide 20 Mg Tab 20 Mg PO HS PRN 04/04/16 Reported PHYSICAL EXAMINATION: Last 8 Hrs Date Time Temp Pulse Resp B/P (MAP) Pulse Ox O2 Delivery O2 Flow Rate FiO2 07/07/17 08:14 36.4 67 18 149/81 (103) 91 Room Air 07/07/17 08:00 Room Air 07/07/17 03:27 36.3 66 16 133/78 (96) 94 Room Air GEN: A+Ox3. NAD. HEENT exam is normocephalic and atraumatic. /Nares without discharge. Throat was clear. Neck is thin. There are no carotid bruits. Lungs : faint bibasilar rales. Cardiovascular exam is irregularly irregular with crisp mechanical valve sounds. There is a grade I/ systolic murmur. There is no diastolic murmur. Abdomen was soft and tender. Extremities: Trace b/l LE edema. Right knee wrapped with drain intact. chronic stasis changes DATA: Last 24 Hours Test 07/06/17 21:49 07/07/17 04:31 White Blood Count 6.26 K/uL 5.97 K/uL Red Blood Count 2.59 M/uL 2.51 M/uL Hemoglobin 7.5 g/dL 7.3 g/dL Hematocrit 24.0 % 23.4 % Mean Corpuscular Volume 92.7 fL 93.2 fL Mean Corpuscular Hemoglobin 29.0 pg 29.1 pg Mean Corpuscular Hemoglobin Concent 31.3 g/dl 31.2 g/dl Platelet Count 238 K/uL 236 K/uL Mean Platelet Volume 9.0 fL 9.1 fL Neutrophils (%) (Auto) 83.9 % Lymphocytes (%) (Auto) 11.7 % Monocytes (%) (Auto) 4.0 % Eosinophils (%) (Auto) 0.2 % Basophils (%) (Auto) 0.0 % Neutrophils # (Auto) 5.26 K/uL Lymphocytes # (Auto) 0.73 K/uL Monocytes # (Auto) 0.25 K/uL Eosinophils # (Auto) 0.01 K/uL Basophils # (Auto) 0.00 K/uL RDW Standard Deviation 51.2 fL 51.0 fL RDW Coefficient of Variation 15.1 % 15.1 % Immature Granulocyte % (Auto) 0.2 % Immature Granulocyte # (Auto) 0.01 K/uL Hypochromasia PRESENT Prothrombin Time 16.6 SECONDS 18.1 SECONDS Prothromb Time International Ratio 1.6 1.7 Activated Partial Thromboplast Time 30.0 SECONDS 63.2 SECONDS Partial Thromboplastin Ratio 1.2 2.4 Prior DATA: 2D echo report reviewed, dated 01/2017: Interpretation Summary The examination is adequate to evaluate the referral indication. The LV wall thickness is mildly increased (concentric). The left ventricular wall motion is normal. The qualitative LV ejection fraction is 5559% (normal). Mild aortic valve sclerosis is present. Mild aortic valve regurgitation is present. There is a mitral valve bileaflet disc (St. Chaitanya type) mechanical prosthesis present. Significant mitral valve prosthesis regurgitation is absent. The mitral valve prosthesis systolic gradients are normal for this type prosthesis. The mean diastolic gradient across the mechanical mitral valve prosthesis is 5.7 millimeters Hg which is stable compared to prior study dated 10/30/2014, and improved compared to the study performed [place] [facility] [place] 01/18/[place]. Moderate tricuspid regurgitation is present. The right ventricular cavity is moderately dilated. The right ventricular systolic function is mildly reduced . Mild to moderate pulmonary hypertension is present. The estimated pulmonary artery systolic pressure is 47mm Hg. The aortic root is moderately enlarged. The proximal ascending thoracic aorta is mildly enlarged. IMPRESSION: 76-year-old male 1. Right knee hematoma, s/p evacuation x2, recent arthroscopic knee surgery. Drain in place 2. anemia secondary to blood loss - Recommend hbg > 8. 2 units PRBC's received this admission. May need additional unit today. 3. History of mechanical mitral valve prosthesis placed in 1994 in the setting of acute pulmonary edema, flail mitral valve leaflet. Chronic anticoagulation therapy required. 4. History of Right greater than left heart failure, appears compensated. 5. Recent/recurrent CVA in setting of afib and sub therapeutic INR, diagnosed in November 2016 with MRI. 6 .Chronic atrial fibrillation, rate controlled on Coumadin. RECOMMENDATIONS: Patient has a mechanical mitral valve which requires uninterrupted anticoagulation with heparin to Coumadin (INR Goal 2.5-3.5), despite ongoing bleeding/hematoma of right knee. He also has a history of chronic afib and recurrent CVAs requiring chronic anticoagulation. Recommend HBG >8 and transfuse as necessary with one dose IV furosemide 20 mg post transfusion to maintain volume status Given recent surgeries and temporary discontinuation of ACC earlier this admission, will update 2D echo to r/o thrombosis of valve at this time. He is to continue current outpatient cardiac medications. Case discussed with Dr. Briggs. (Shabana Arcos PA-C) Cardiology attending: Pt seen and examined, agree with findings and assessment as per Shabana Riley. Pt with discomfort and drain in place. Denies cardiac complaints of chest pain, sob, palpitations, lightheadedness or dizziness. Heparin has been restarted and coumadin has been continued. Echo shows no change to valve indices making significant thrombus unlikely. Unfortunately, with a mechanical mitral valve prosthesis anticoagulation is a must to prevent thrombosis of the valve in a lower pressure environment. Cont heparin until goal INR of 2.5-3.5 is maintained. (Aurelio Briggs, Rishi.O.)
[2017-07-07] MEDS ORDERED: PERFLUTREN LIPID MICROSPHERE (DEFINITY) IV ONE (11:49)
[2017-07-07] MEDS: SODIUM CHLORIDE 0.9% 1000ML 1,000 ML IV SCH (12:42)
[2017-07-07] MEDS: HEPARIN 25,000 UNIT/500ML D5W 500 ML IV SCH ×3 (12:58→22:59)
--- NOTE | 2017-07-07 14:36 | ECHOCARDIOGRAM REPORT ---
*NOTICE TO RECEIVING DEMOCRAT AGENCY This information is strictly Confidential and protected under [place] law. [place] law prohibits you from making any further disclosure of this information unless further disclosure is expressly permitted by the written consent of the person to whom it pertains or is authorized by law. A general authorization for the release of medical or other information is not sufficient for this purpose. Hospital accepts no responsibility if the information is made available to any other person, INCLUDING THE PATIENT. Interpretation Summary * Name: ERLINDA RAO Study Date: 07/07/2017 11:07 AM BP: 149/81 mmHg * Patient Location: C.MSN\S\N384\S\2 HR: 78 * : 1940 (M/d/yyyy) Gender: Male Height: 72 in * Age: 77 yrs Ethnicity: CA Weight: 242 lb * Ordering Physician: Shabana Arcos * Referring Physician: No Doctor, Assigned * Performed By: Sarah Mejia RDCS * * Reason For Study: HX MECHANICAL MV, R/O THROMBOSIS * BSA: 2.3 m2 * -- Conclusions -- * No significant change compared to previous study of 04/05/16. * Normal LV chamber size with moderate concentric LVH. * Normal LV systolic function, EF 55-60%. * No segmental left ventricular wall motion abnormalities are noted. * Abnormal diastolic dysfunction by presence of left atrial enlargement. * Aortic valve sclerosis moderate, without significant aortic valvular stenosis. * There is a mechanical mitral valve. * Doppler evidence of mitral regurgitation is normal for this valve. * Prosthetic mitral valve peak and/or mean gradients are normal. * Severe biatrial enlargement. * Moderate aortic root enlargement. Procedure Details * A contrast injection of Definity was performed to improve assessment of LV function. * Contrast was injected into an intravenous site in the left arm. * One vial of Definity ultrasound contrast was diluted in normal saline to a total volume of 10 ml. A total of '1' ml of solution was administered during imaging. * Lot # [id number] of Definity utilized for procedure. * Expiration date JUN 15. * The attending nurse who injected the contrast agent was MYLES SOLIS RN. Left Ventricle * The left ventricle is normal in size. * There is mild concentric left ventricular hypertrophy. * The left ventricle is hyperdynamic. * No segmental left ventricular wall motion abnormalities are noted. * Ejection Fraction = >70 %. * The left ventricular wall motion is normal. Right Ventricle * The right ventricular cavity size is normal (basal dimension <4.2 cm in right ventricular apical 4-chamber view). * The right ventricular systolic function is normal as assessed by tricuspid annular plane systolic excursion (TAPSE) (normal >1.5 cm). Atria * The left atrium is severely dilated. * The right atrium is severely dilated. Mitral Valve * There is a bi-leaflet (St. Chaitanya) mechanical prosthesis. * Prosthetic mitral valve peak and/or mean gradients are normal. * Doppler evidence of mitral regurgitation is normal for this valve. * There are no vegetations on this prosthetic mitral valve. Tricuspid Valve * The tricuspid valve is normal in structure and function. Aortic Valve * The aortic valve is not well visualized. * Aortic valve sclerosis moderate, without significant aortic valvular stenosis. * There is no significant aortic regurgitation. Pulmonic Valve * The pulmonary valve is not well seen, but the Doppler examination is normal without significant regurgitation or stenosis. Great Vessels * Moderate aortic root dilatation. Pericardium/Pleural * There is no pericardial effusion. MMode 2D Measurements and Calculations Ao root diam 4.7 cm Ao root area 17.3 cm\S\2 LVOT diam 2.0 cm LVOT area 3.1 cm\S\2 LVAd ap4 36.0 cm\S\2 LVLd ap4 9.2 cm EDV(MOD-sp4) 116.7 ml EDV(sp4-el) 119.7 ml LVAs ap4 18.1 cm\S\2 LVLs ap4 7.7 cm ESV(MOD-sp4) 34.7 ml ESV(sp4-el) 36.1 ml EF(MOD-sp4) 70.2 % EF(sp4-el) 69.9 % LVAd ap2 34.0 cm\S\2 LVLd ap2 9.0 cm EDV(MOD-sp2) 104.7 ml EDV(sp2-el) 108.8 ml LVAs ap2 17.9 cm\S\2 LVLs ap2 7.9 cm ESV(MOD-sp2) 35.5 ml ESV(sp2-el) 34.5 ml EF(MOD-sp2) 66.0 % EF(sp2-el) 68.3 % LVLd %diff -1.89 % EDV(MOD-bp) 110.0 ml LVLs %diff 1.3 % ESV(MOD-bp) 34.3 ml EF(MOD-bp) 68.9 % SV(MOD-sp4) 81.9 ml SI(MOD-sp4) 35.5 ml/m\S\2 SV(MOD-sp2) 69.2 ml SI(MOD-sp2) 29.9 ml/m\S\2 SV(MOD-bp) 75.8 ml SI(MOD-bp) 32.8 ml/m\S\2 SV(sp4-el) 83.7 ml SI(sp4-el) 36.2 ml/m\S\2 SV(sp2-el) 74.4 ml SI(sp2-el) 32.2 ml/m\S\2 Doppler Measurements and Calculations MV E max magdiel 182.7 cm/sec MV V2 max 202.9 cm/sec MV max PG 16.5 mmHg MV V2 mean 104.6 cm/sec MV mean PG 5.8 mmHg MV V2 VTI 61.5 cm MVA(VTI) 0.96 cm\S\2 MV P1/2t max magdiel 204.8 cm/sec MV P1/2t 141.7 msec MVA(P1/2t) 1.6 cm\S\2 MV dec slope 423.4 cm/sec\S\2 MV dec time 0.40 sec Ao V2 max 173.3 cm/sec Ao max PG 12.0 mmHg Ao max PG (full) 8.9 mmHg Ao V2 mean 116.0 cm/sec Ao mean PG 6.3 mmHg Ao mean PG (full) 4.5 mmHg Ao V2 VTI 29.5 cm SATYA(I,A) 2.0 cm\S\2 SATYA(I,D) 2.0 cm\S\2 SATYA(V,A) 1.6 cm\S\2 SATYA(V,D) 1.6 cm\S\2 LV V1 max PG 3.1 mmHg LV V1 mean PG 1.8 mmHg LV V1 max 88.2 cm/sec LV V1 mean 62.5 cm/sec LV V1 VTI 18.8 cm SV(Ao) 512.2 ml SI(Ao) 221.7 ml/m\S\2 SV(LVOT) 59.2 ml SI(LVOT) 25.6 ml/m\S\2 TR max magdiel 265.8 cm/sec
[2017-07-07] MEDS ORDERED: WARFARIN SOD 5 MG TAB PO SCH (16:00)
[2017-07-07] MEDS ORDERED: ACETAMINOPHEN 325 MG TAB PO SCH (17:00)
[2017-07-07] MEDS ORDERED: FUROSEMIDE INJ 20 MG in SYRINGE 0 ML IV SCH (18:00)
--- NOTE | 2017-07-07 18:33 | Progress Note ---
Internal Med Progress Note Date of Service: July 07, 2017. Provider Documentation: SUBJECTIVE: resting comfortably denies any pain in knee today ambulated ok denies chest pain or sob afebrile OBJECTIVE: Vital Signs-as noted below Exam: General-alert and oriented. Not in distress ENT-Normal hearing Neck-no neck masses Lungs-cta b/l no wheezing no crackles Heart-s1 and s2 heard regular rate and rhythm no murmurs Abdomen-soft bowel sounds present non tender no distension Extremities- right knee in dressing drain seen Neuro-alert and awake 'moves extremities Lab data as noted below. ASSESSMENT & PLAN: 1. R knee hemarthrosis initially in Mar post knee shot and 2/2 supratherapeutic anticoagulation status post right knee arthroscopy presented with recurrent hematoma secondary to again elevated INR s/p evacuation yesterday (07/04) and required two units of prbc. Was started on IV heparin bridge 30hrs later as patinet has MVR and 12jhrs later again developed hematoma in same knee extending up to thigh. 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 pain is under control now. Heparin and Coumadin restarted. continue to monitor. 2. s/p mechanical mitral valve-goal INR 2.5-3.5. Cardiology [place] board. Restarted heparin and Coumadin. Inr 1.8 today. 3. Chronic atrial fibrillation-rate is controlled with verapamil. Anticoagulation as above 4. HTN-controlled, continue Cozaar. Will monitor 5. 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 6. Acute posthemorrhagic anemia-required 2 units of blood. hb is 7.3 today. transfusing one more unit today. Goal hb>8.0. DVT proph-iv heparin. Full Code Dispo-to be determined Vital Signs: Date Time Temp Pulse Resp B/P (MAP) Pulse Ox O2 Delivery O2 Flow Rate FiO2 07/07/17 16:00 Room Air 07/07/17 15:02 36.4 86 16 134/85 (101) 91 Room Air 07/07/17 12:12 36.4 86 18 163/86 (111) 91 Room Air 07/07/17 08:14 36.4 67 18 149/81 (103) 91 Room Air 07/07/17 08:00 Room Air 07/07/17 03:27 36.3 66 16 133/78 (96) 94 Room Air 07/07/17 00:35 Room Air 07/06/17 22:59 36.4 71 15 111/71 (84) 94 Room Air 07/06/17 19:30 36.5 71 16 124/72 (89) 94 Room Air Lab Results: Results Past 24 Hours Test 07/06/17 21:49 07/07/17 04:31 Range/Units White Blood Count 6.26 5.97 4.8-10.8 K/uL Red Blood Count 2.59 2.51 4.7-6.1 M/uL Hemoglobin 7.5 7.3 14.0-18.0 g/dL Hematocrit 24.0 23.4 42-52 % Mean Corpuscular Volume 92.7 93.2 80-100 fL Mean Corpuscular Hemoglobin 29.0 29.1 25-34 pg Mean Corpuscular Hemoglobin Concent 31.3 31.2 32-36 g/dl Platelet Count 238 236 130-400 K/uL Mean Platelet Volume 9.0 9.1 7.4-10.4 fL Neutrophils (%) (Auto) 83.9 % Lymphocytes (%) (Auto) 11.7 % Monocytes (%) (Auto) 4.0 % Eosinophils (%) (Auto) 0.2 % Basophils (%) (Auto) 0.0 % Neutrophils # (Auto) 5.26 1.4-6.5 K/uL Lymphocytes # (Auto) 0.73 1.2-3.4 K/uL Monocytes # (Auto) 0.25 0.11-0.59 K/uL Eosinophils # (Auto) 0.01 0-0.5 K/uL Basophils # (Auto) 0.00 0-0.2 K/uL RDW Standard Deviation 51.2 51.0 36.4-46.3 fL RDW Coefficient of Variation 15.1 15.1 11.5-14.5 % Immature Granulocyte % (Auto) 0.2 % Immature Granulocyte # (Auto) 0.01 0.00-0.02 K/uL Hypochromasia PRESENT Prothrombin Time 16.6 18.1 9.0-12.0 SECONDS Prothromb Time International Ratio 1.6 1.7 0.9-1.1 Activated Partial Thromboplast Time 30.0 63.2 21.0-31.0 SECONDS Partial Thromboplastin Ratio 1.2 2.4
--- NOTE | 2017-07-07 19:58 | Orthopedic Progress Note ---
Orthopedic Progress Note Date of Service July 07, 2017. Subjective Post OP Day: 2 Reports: feeling well, Denies: complaints Objective calves soft nontender, N/V intact, dressing C/D/I, A&O x3, toes mobile, hemovac drainage (100ml) Date Time Temp Pulse Resp B/P (MAP) Pulse Ox O2 Delivery O2 Flow Rate FiO2 07/07/17 19:29 160/91 (114) 07/07/17 19:08 37.4 71 16 176/92 (120) 93 Room Air 07/07/17 18:51 37.3 71 20 154/88 94 07/07/17 18:33 37.1 79 20 142/85 93 07/07/17 16:00 Room Air 07/07/17 15:02 36.4 86 16 134/85 (101) 91 Room Air 07/07/17 12:12 36.4 86 18 163/86 (111) 91 Room Air 07/07/17 08:14 36.4 67 18 149/81 (103) 91 Room Air 07/07/17 08:00 Room Air 07/07/17 03:27 36.3 66 16 133/78 (96) 94 Room Air 07/07/17 00:35 Room Air 07/06/17 22:59 36.4 71 15 111/71 (84) 94 Room Air Laboratory Results 24 Hours: Test 07/06/17 21:49 07/07/17 04:31 White Blood Count 6.26 K/uL Red Blood Count 2.59 M/uL Hemoglobin 7.5 g/dL 7.3 g/dL Hematocrit 24.0 % 23.4 % Mean Corpuscular Volume 92.7 fL Mean Corpuscular Hemoglobin 29.0 pg Mean Corpuscular Hemoglobin Concent 31.3 g/dl Platelet Count 238 K/uL Mean Platelet Volume 9.0 fL Neutrophils (%) (Auto) 83.9 % Lymphocytes (%) (Auto) 11.7 % Monocytes (%) (Auto) 4.0 % Eosinophils (%) (Auto) 0.2 % Basophils (%) (Auto) 0.0 % Neutrophils # (Auto) 5.26 K/uL Lymphocytes # (Auto) 0.73 K/uL Monocytes # (Auto) 0.25 K/uL Eosinophils # (Auto) 0.01 K/uL Basophils # (Auto) 0.00 K/uL Prothromb Time International Ratio 1.6 1.7 Prothrombin Time 16.6 SECONDS 18.1 SECONDS Assessment & Plan Assessment: POD #2 s/p Evacuation of hematoma, right knee x 2 - Plan: PT/OT WBAT Continue drains for the next day or two per Dr Daniel. Follow I&O's. When drain output is minimal, plan to dc Must wear immobilizer especially for ambulation for 1 week. No ROM of the knee at this time. Inhouse Planning Pain Management: PRACTICE ADVISOR
[2017-07-07] MEDS: SENNA 8.6 MG TAB PO SCH (20:24)
[2017-07-07] MEDS: HydrALAZINE HCL 20 MG/ML VIAL IV. PRN (20:26)
[2017-07-08] VITALS (10 sets, daily range): BP systolic 146–224; BP diastolic 76–127; PULSE 58–91; TEMP 36.6–37.2; O2SAT 90–96
[2017-07-08] MEDS: POTASSIUM CHLORIDE INJ 10 MEQ in SODIUM CHLORIDE 0.9% 1000ML 1,000 ML IV SCH ×2 (01:49→14:32)
[2017-07-08] MEDS: HEPARIN 25,000 UNIT/500ML D5W 500 ML IV SCH ×4 (02:55→09:05)
[2017-07-08] MEDS: ACETAMINOPHEN 500 MG TAB PO SCH ×3 (05:48→21:12)
[2017-07-08 07:11] LABS: BASO % 0.2 %; BASO ABS # 0.01 K/uL (0-0.2); EOS % 0.5 %; EOS ABS # 0.03 K/uL (0-0.5); HEMATOCRIT 27.1 % (42-52); HEMOGLOBIN 8.7 g/dL (14.0-18.0); IG# 0.02 K/uL (0.00-0.02); LYMPH % 9.5 %; MEAN CELL VOLUME 90.3 fL (80-100); MEAN CORPUSCULAR HGB CONC 32.1 g/dl (32-36); MEAN PLATELET VOLUME 9.4 fL (7.4-10.4); MONO ABS # 0.57 K/uL (0.11-0.59); NEUT % 80.5 %; PLATELET COUNT 265 K/uL (130-400); RED CELL DISTRIBUTION WIDTH CV 14.9 % (11.5-14.5); RED CELL DISTRIBUTION WIDTH SD 49.2 fL (36.4-46.3); WHITE BLOOD COUNT 6.33 K/uL (4.8-10.8)
[2017-07-08] MEDS: HYDROmorphone HCL 0.5MG/ML 50 ML CASSETTE IV PRN ×2 (07:14→23:22)
[2017-07-08 07:29] LABS: CALCIUM 7.4 mg/dl (8.5-10.1); CREATININE 0.83 mg/dl (0.60-1.40); POTASSIUM 2.8 mmol/L (3.5-5.1)
[2017-07-08 07:31] LABS: INR 3.2 (0.9-1.1)
[2017-07-08 07:36] LABS: PTT PATIENT 108.7 SECONDS (21.0-31.0)
[2017-07-08] MEDS ORDERED: HYDROmorphone INJ 0.5 MG/0.5 ML SYR IV STA ×2 (07:40→09:15)
[2017-07-08] MEDS ORDERED: HYDROmorphone INJ 0.5 MG/0.5 ML SYR ONE (07:44)
[2017-07-08] MEDS: HydrALAZINE HCL 20 MG/ML VIAL IV. PRN (08:05)
[2017-07-08] MEDS ORDERED: POTASSIUM CHLORIDE 20 MEQ TABCR PO ONE (08:15)
[2017-07-08] MEDS: VERAPAMIL HCL 120 MG TABCR PO SCH ×2 (08:16→21:11)
[2017-07-08] MEDS: FERROUS GLUCONATE 324 MG TAB PO SCH ×3 (08:17→17:58)
[2017-07-08] MEDS: MULTIVITAMIN TAB PO SCH (08:17)
[2017-07-08] MEDS: LOSARTAN POTASSIUM 50 MG TAB PO SCH (08:17)
[2017-07-08] MEDS: PANTOprazole SOD 40 MG TAB PO SCH (08:17)
[2017-07-08] MEDS: DOCUSATE SODIUM 100 MG CAP PO SCH ×2 (08:18→21:11)
[2017-07-08] MEDS: POTASSIUM CHLR 10 MEQ / WTR 100 ML IV SCH ×2 (09:09→11:04)
[2017-07-08] MEDS ORDERED: NURSING VERBAL MED ORDER ONE ×2 (09:15→11:45)
[2017-07-08 09:36] LABS: HEMATOCRIT 29.3 % (42-52); HEMOGLOBIN 9.6 g/dL (14.0-18.0)
--- NOTE | 2017-07-08 10:31 | DIAGNOSTIC IMAGING REPORT ---
R EXTREMITY NONVASCULAR LIMITED HISTORY: 77 years-old Male Right knee and thigh hematoma? Acute pain and swelling of the right knee and right thigh COMPARISON: Sonographic images 07/05/2017 TECHNIQUE: Multiple real-time sonographic images of the right lateral thigh and continues tissues were obtained assessing grayscale appearance and color flow FINDINGS: There is moderate subcutaneous edema about the lateral right thigh with previously noted complex fluid collection not definitively seen. Aircraft Part Assembler reports drainage tube and catheter in place. IMPRESSION: Moderate subcutaneous edema with previously noted complex fluid collection seen on study dated 07/05/2017 not identified. The above report was generated using voice recognition software. It may contain grammatical, syntax or spelling errors. Electronically signed by: Trevor Paul M.D. 07/08/2017 10:30 AM Dictated Date/Time: 07/08/2017 10:28 AM
[2017-07-08] MEDS ORDERED: OXYCODONE HCL IR 5 MG TAB (IMMEDIATE RELEASE) PO PRN (11:30)
[2017-07-08] MEDS ORDERED: POTASSIUM CHLORIDE PWD 20 MEQ PACK PO ONE (12:00)
[2017-07-08] MEDS: POTASSIUM CHLORIDE PWD 20 MEQ PACK PO SCH ×2 (12:45→21:11)
[2017-07-08] MEDS: SODIUM CHLORIDE 0.9% 1000ML 1,000 ML IV SCH (12:47)
--- NOTE | 2017-07-08 13:29 | Orthopedic Progress Note ---
Orthopedic Progress Note Date of Service July 08, 2017. Subjective Post OP Day: 3 (2nd I&D/evac of hematoma) Objective Knee with recurrent hemarthrosis, drains still in place Date Time Temp Pulse Resp B/P (MAP) Pulse Ox O2 Delivery O2 Flow Rate FiO2 07/08/17 11:39 36.8 76 18 146/82 (103) 95 Room Air 07/08/17 08:40 91 22 185/93 (123) 91 Room Air 07/08/17 08:14 210/105 (140) 07/08/17 07:53 83 22 218/127 (157) 90 07/08/17 07:39 81 22 224/117 (152) 96 07/08/17 07:25 Room Air 07/08/17 06:56 37.2 73 18 177/76 (109) 94 Room Air 07/08/17 03:21 36.6 58 18 155/95 (115) 95 Room Air 07/07/17 23:40 95 Room Air 3.0 07/07/17 22:51 36.6 50 16 127/71 (89) 95 Room Air 07/07/17 21:20 37.0 84 18 148/77 94 07/07/17 20:20 37.1 88 20 185/95 94 07/07/17 19:58 37.1 88 18 168/88 94 07/07/17 19:29 160/91 (114) 07/07/17 19:08 37.4 71 16 176/92 (120) 93 Room Air 07/07/17 18:51 37.3 71 20 154/88 94 07/07/17 18:33 37.1 79 20 142/85 93 07/07/17 16:00 Room Air 07/07/17 15:02 36.4 86 16 134/85 (101) 91 Room Air Laboratory Results 24 Hours: Test 07/08/17 06:41 07/08/17 09:24 White Blood Count 6.33 K/uL Red Blood Count 3.00 M/uL Hemoglobin 8.7 g/dL 9.6 g/dL Hematocrit 27.1 % 29.3 % Mean Corpuscular Volume 90.3 fL Mean Corpuscular Hemoglobin 29.0 pg Mean Corpuscular Hemoglobin Concent 32.1 g/dl Platelet Count 265 K/uL Mean Platelet Volume 9.4 fL Neutrophils (%) (Auto) 80.5 % Lymphocytes (%) (Auto) 9.5 % Monocytes (%) (Auto) 9.0 % Eosinophils (%) (Auto) 0.5 % Basophils (%) (Auto) 0.2 % Neutrophils # (Auto) 5.10 K/uL Lymphocytes # (Auto) 0.60 K/uL Monocytes # (Auto) 0.57 K/uL Eosinophils # (Auto) 0.03 K/uL Basophils # (Auto) 0.01 K/uL Prothromb Time International Ratio 3.2 Prothrombin Time 32.9 SECONDS Assessment & Plan Assessment: POD #3 s/p Evacuation of hematoma, right knee x 2, elevated INR, PTT, hypokalemia - Plan: 1. Med management- restarted heparin and Coumadin but pt now with recurrent hemarthrosis. May need repeat I&D but will may require prolonged time off of anticoagulants 2. 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
--- NOTE | 2017-07-08 15:18 | Progress Note ---
Internal Med Progress Note Date of Service: July 08, 2017. Provider Documentation: SUBJECTIVE: complains of severe pain in right knee and thigh region denies any other pain afebrile no nausea no headaches OBJECTIVE: Vital Signs-as noted below Exam: General-alert and oriented. Not in distress ENT-Normal hearing Neck-no neck masses Lungs-cta b/l no wheezing no crackles Heart-s1 and s2 heard regular rate and rhythm no murmurs Abdomen-soft bowel sounds present non tender no distension Extremities- right knee in dressing drain seen Neuro-alert and awake 'moves extremities Lab data as noted below. ASSESSMENT & PLAN: 1. R knee hemarthrosis initially in Mar post knee shot and 2/2 supratherapeutic anticoagulation status post right knee arthroscopy presented with recurrent hematoma secondary to again elevated INR s/p evacuation (07/04) and required two units of prbc. Was started on IV heparin bridge 30hrs later as patient has MVR and 12hrs later again developed hematoma in same knee extending up to thigh. Heparin was stopped and s/p repeat evacuation(07/05) and drain placed.On TREE EXP[employer] for pain. Heparin and Coumadin restarted.Today again complains of severe pain.possible recurrent hematoma. inr 3.2 today. iv heparin stopped and Coumadin held. Ortho notified 2. s/p mechanical mitral valve-goal INR 2.5-3.5. Cardiology [place] [facility].inr 3.2 today. Coumadin held as above 3. Chronic atrial fibrillation-rate is controlled with verapamil. Anticoagulation as above 4. HTN-on Cozaar and verapamil. elevated form pain. iv hydralazine prn Will monitor 5. 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 6. Acute posthemorrhagic anemia-s/p total 3units transfused so far hb 9.6 today. Goal hb>8.0. 7. Hypokalemia will replace f/u labs DVT proph- inr 3.2 today. Full Code Dispo-to be determined Vital Signs: Date Time Temp Pulse Resp B/P (MAP) Pulse Ox O2 Delivery O2 Flow Rate FiO2 07/08/17 15:09 36.8 76 16 166/83 (110) 95 Nasal Cannula 2.0 07/08/17 11:39 36.8 76 18 146/82 (103) 95 Room Air 07/08/17 08:40 91 22 185/93 (123) 91 Room Air 07/08/17 08:14 210/105 (140) 07/08/17 07:53 83 22 218/127 (157) 90 07/08/17 07:39 81 22 224/117 (152) 96 07/08/17 07:25 Room Air 07/08/17 06:56 37.2 73 18 177/76 (109) 94 Room Air 07/08/17 03:21 36.6 58 18 155/95 (115) 95 Room Air 07/07/17 23:40 95 Room Air 3.0 07/07/17 22:51 36.6 50 16 127/71 (89) 95 Room Air 07/07/17 21:20 37.0 84 18 148/77 94 07/07/17 20:20 37.1 88 20 185/95 94 07/07/17 19:58 37.1 88 18 168/88 94 07/07/17 19:29 160/91 (114) 07/07/17 19:08 37.4 71 16 176/92 (120) 93 Room Air 07/07/17 18:51 37.3 71 20 154/88 94 07/07/17 18:33 37.1 79 20 142/85 93 07/07/17 16:00 Room Air Lab Results: Results Past 24 Hours Test 07/08/17 06:41 07/08/17 09:24 Range/Units White Blood Count 6.33 4.8-10.8 K/uL Red Blood Count 3.00 4.7-6.1 M/uL Hemoglobin 8.7 9.6 14.0-18.0 g/dL Hematocrit 27.1 29.3 42-52 % Mean Corpuscular Volume 90.3 80-100 fL Mean Corpuscular Hemoglobin 29.0 25-34 pg Mean Corpuscular Hemoglobin Concent 32.1 32-36 g/dl Platelet Count 265 130-400 K/uL Mean Platelet Volume 9.4 7.4-10.4 fL Neutrophils (%) (Auto) 80.5 % Lymphocytes (%) (Auto) 9.5 % Monocytes (%) (Auto) 9.0 % Eosinophils (%) (Auto) 0.5 % Basophils (%) (Auto) 0.2 % Neutrophils # (Auto) 5.10 1.4-6.5 K/uL Lymphocytes # (Auto) 0.60 1.2-3.4 K/uL Monocytes # (Auto) 0.57 0.11-0.59 K/uL Eosinophils # (Auto) 0.03 0-0.5 K/uL Basophils # (Auto) 0.01 0-0.2 K/uL RDW Standard Deviation 49.2 36.4-46.3 fL RDW Coefficient of Variation 14.9 11.5-14.5 % Immature Granulocyte % (Auto) 0.3 % Immature Granulocyte # (Auto) 0.02 0.00-0.02 K/uL Red Blood Cell Morphology Unremarkable Prothrombin Time 32.9 9.0-12.0 SECONDS Prothromb Time International Ratio 3.2 0.9-1.1 Activated Partial Thromboplast Time 108.7 21.0-31.0 SECONDS Partial Thromboplastin Ratio 4.2 Sodium Level 139 136-145 mmol/L Potassium Level 2.8 3.5-5.1 mmol/L Chloride Level 105 98-107 mmol/L Carbon Dioxide Level 29 21-32 mmol/L Anion Gap 5.0 3-11 mmol/L Blood Urea Nitrogen 10 7-18 mg/dl Creatinine 0.83 0.60-1.40 mg/dl Est Creatinine Clear Calc Drug Dose 94.0 ml/min Estimated GFR () 97.7 Estimated GFR (Non- 84.3 BUN/Creatinine Ratio 11.5 10-20 Random Glucose 146 70-99 mg/dl Calcium Level 7.4 8.5-10.1 mg/dl Magnesium Level 2.0 1.8-2.4 mg/dl
[2017-07-08 17:52] LABS: HEMATOCRIT 29.5 % (42-52); HEMOGLOBIN 9.3 g/dL (14.0-18.0)
[2017-07-08] MEDS: SENNA 8.6 MG TAB PO SCH (21:11)
[2017-07-09] VITALS (14 sets, daily range): BP systolic 130–168; BP diastolic 69–93; PULSE 60–91; TEMP 36.7–37.1; O2SAT 88–95
[2017-07-09] MEDS: POTASSIUM CHLORIDE INJ 10 MEQ in SODIUM CHLORIDE 0.9% 1000ML 1,000 ML IV SCH ×3 (00:45→21:21)
[2017-07-09] MEDS: HYDROmorphone HCL 0.5MG/ML 50 ML CASSETTE IV PRN ×4 (01:06→23:15)
[2017-07-09] MEDS ORDERED: NURSING VERBAL MED ORDER ONE (05:15)
[2017-07-09 06:05] LABS: BASO % 0.2 %; BASO ABS # 0.01 K/uL (0-0.2); EOS % 1.2 %; EOS ABS # 0.07 K/uL (0-0.5); HEMATOCRIT 27.4 % (42-52); HEMOGLOBIN 8.6 g/dL (14.0-18.0); IG# 0.01 K/uL (0.00-0.02); LYMPH % 9.2 %; LYMPH ABS # 0.52 K/uL (1.2-3.4); MEAN CELL VOLUME 92.9 fL (80-100); MEAN CORPUSCULAR HEMOGLOBIN 29.2 pg (25-34); MEAN CORPUSCULAR HGB CONC 31.4 g/dl (32-36); MEAN PLATELET VOLUME 8.6 fL (7.4-10.4); MONO % 12.9 %; MONO ABS # 0.73 K/uL (0.11-0.59); NEUT % 76.3 %; NEUT ABS # 4.34 K/uL (1.4-6.5); PLATELET COUNT 233 K/uL (130-400); RED CELL DISTRIBUTION WIDTH CV 15.1 % (11.5-14.5); RED CELL DISTRIBUTION WIDTH SD 51.4 fL (36.4-46.3); WHITE BLOOD COUNT 5.68 K/uL (4.8-10.8)
[2017-07-09] MEDS: ACETAMINOPHEN 500 MG TAB PO SCH ×3 (06:19→21:22)
[2017-07-09 06:22] LABS: PTT PATIENT 39.4 SECONDS (21.0-31.0)
[2017-07-09 06:26] LABS: INR 5.9 (0.9-1.1)
[2017-07-09 06:34] LABS: CALCIUM 7.9 mg/dl (8.5-10.1); CREATININE 0.81 mg/dl (0.60-1.40)
--- NOTE | 2017-07-09 08:22 | Orthopedic Progress Note ---
Orthopedic Progress Note Date of Service July 09, 2017. Objective Right knee: Dressings are clean and dry. Drains are stable. Improve range of motion this morning. Less tension to the superior capsule. No significant tenderness to palpation of the knee. Compartments are soft. Date Time Temp Pulse Resp B/P (MAP) Pulse Ox O2 Delivery O2 Flow Rate FiO2 07/09/17 07:24 36.8 74 16 133/79 (97) 95 Room Air 07/09/17 03:33 95 Nasal Cannula 1.0 07/09/17 03:32 36.8 60 18 134/69 (90) 88 Room Air 07/09/17 00:05 95 Room Air 2.0 07/08/17 23:10 36.8 73 16 164/80 (108) 96 Room Air 07/08/17 16:30 95 Room Air 07/08/17 15:09 36.8 76 16 166/83 (110) 95 Nasal Cannula 2.0 07/08/17 11:39 36.8 76 18 146/82 (103) 95 Room Air 07/08/17 08:40 91 22 185/93 (123) 91 Room Air Laboratory Results 24 Hours: Test 07/08/17 09:24 07/08/17 17:41 07/09/17 05:57 Hematocrit 29.3 % 29.5 % 27.4 % Hemoglobin 9.6 g/dL 9.3 g/dL 8.6 g/dL White Blood Count 5.68 K/uL Red Blood Count 2.95 M/uL Mean Corpuscular Volume 92.9 fL Mean Corpuscular Hemoglobin 29.2 pg Mean Corpuscular Hemoglobin Concent 31.4 g/dl Platelet Count 233 K/uL Mean Platelet Volume 8.6 fL Neutrophils (%) (Auto) 76.3 % Lymphocytes (%) (Auto) 9.2 % Monocytes (%) (Auto) 12.9 % Eosinophils (%) (Auto) 1.2 % Basophils (%) (Auto) 0.2 % Neutrophils # (Auto) 4.34 K/uL Lymphocytes # (Auto) 0.52 K/uL Monocytes # (Auto) 0.73 K/uL Eosinophils # (Auto) 0.07 K/uL Basophils # (Auto) 0.01 K/uL Prothromb Time International Ratio 5.9 Prothrombin Time 60.2 SECONDS Assessment & Plan Assessment: POD #4 s/p Evacuation of hematoma, right knee x 2, elevated INR, PTT, hypokalemia - Plan: 1. Med management- restarted heparin and Coumadin but pt now with recurrent hemarthrosis. The patient's INR was 5.9 this morning. He likely had a reaccumulation of his hemarthrosis however he is feeling better this morning. His pain is improved. Would hold off on any repeat evacuation hematoma for now. If he has worsening symptoms we may need to pursue this however given the difficulty with his anticoagulation this is not something we could proceed at this time. We will reassess him tomorrow. Inhouse Planning Pain Management: IS MANAGER
[2017-07-09] MEDS: VERAPAMIL HCL 120 MG TABCR PO SCH ×2 (11:09→21:21)
[2017-07-09] MEDS: DOCUSATE SODIUM 100 MG CAP PO SCH ×2 (11:09→21:22)
[2017-07-09] MEDS: FERROUS GLUCONATE 324 MG TAB PO SCH ×3 (11:10→17:55)
[2017-07-09] MEDS: LOSARTAN POTASSIUM 50 MG TAB PO SCH (11:10)
[2017-07-09] MEDS: MULTIVITAMIN TAB PO SCH (11:10)
[2017-07-09] MEDS: POTASSIUM CHLORIDE PWD 20 MEQ PACK PO SCH ×3 (11:10→21:21)
[2017-07-09] MEDS: PANTOprazole SOD 40 MG TAB PO SCH (11:11)
[2017-07-09] MEDS: HydrALAZINE HCL 20 MG/ML VIAL IV. PRN (11:14)
[2017-07-09] MEDS: SODIUM CHLORIDE 0.9% 1000ML 1,000 ML IV SCH (13:18)
--- NOTE | 2017-07-09 16:23 | Progress Note ---
Internal Med Progress Note Date of Service: July 09, 2017. Provider Documentation: SUBJECTIVE: pain in his knee is better today afebrile no sob no cough no nausea resting comfortably OBJECTIVE: Vital Signs-as noted below Exam: General-alert and oriented. Not in distress ENT-Normal hearing Neck-no neck masses Lungs-cta b/l no wheezing no crackles Heart-s1 and s2 heard regular rate and rhythm no murmurs Abdomen-soft bowel sounds present non tender no distension Extremities- right knee in dressing drain seen Neuro-alert and awake 'moves extremities Lab data as noted below. ASSESSMENT & PLAN: 1. R knee hemarthrosis initially in Mar post knee shot and 2/2 supratherapeutic anticoagulation status post right knee arthroscopy presented with recurrent hematoma secondary to again elevated INR s/p evacuation (07/04) and required two units of prbc. Was started on IV heparin bridge 30hrs later as patient has MVR and 12hrs later again developed hematoma in same knee extending up to thigh. 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 Heparin and Coumadin restarted.Today again complains of severe pain.possible recurrent hematoma. inr 5.9 today. iv heparin stopped and Coumadin held. Ortho- to monitor. 2. s/p mechanical mitral valve-goal INR 2.5-3.5. Cardiology [place] [facility].inr 5.9 today. Coumadin held as above. f/u inr-if still trending up will give vitamin k 3. Chronic atrial fibrillation-rate is controlled with verapamil. Anticoagulation as above 4. HTN-on Cozaar and verapamil. elevated form pain. iv hydralazine prn Will monitor 5. 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 6. Acute posthemorrhagic anemia-s/p total 3units transfused so far hb 8.6 today. Goal hb>8.0. 7. Hypokalemia will replace f/u labs DVT proph- inr 5.9 today. Full Code Dispo-to be determined Vital Signs: Date Time Temp Pulse Resp B/P (MAP) Pulse Ox O2 Delivery O2 Flow Rate FiO2 07/09/17 15:01 37.0 66 18 130/69 (89) 94 Room Air 5/13/18 12:15 66 163/86 (111) 07/09/17 11:04 36.9 66 16 168/93 (118) 94 Room Air 07/09/17 07:30 94 Room Air 07/09/17 07:24 36.8 74 16 133/79 (97) 95 Room Air 07/09/17 03:33 95 Nasal Cannula 1.0 07/09/17 03:32 36.8 60 18 134/69 (90) 88 Room Air 07/09/17 00:05 95 Room Air 2.0 07/08/17 23:10 36.8 73 16 164/80 (108) 96 Room Air 07/08/17 16:30 95 Room Air Lab Results: Results Past 24 Hours Test 07/08/17 17:41 07/09/17 05:57 Range/Units Hemoglobin 9.3 8.6 14.0-18.0 g/dL Hematocrit 29.5 27.4 42-52 % White Blood Count 5.68 4.8-10.8 K/uL Red Blood Count 2.95 4.7-6.1 M/uL Mean Corpuscular Volume 92.9 80-100 fL Mean Corpuscular Hemoglobin 29.2 25-34 pg Mean Corpuscular Hemoglobin Concent 31.4 32-36 g/dl Platelet Count 233 130-400 K/uL Mean Platelet Volume 8.6 7.4-10.4 fL Neutrophils (%) (Auto) 76.3 % Lymphocytes (%) (Auto) 9.2 % Monocytes (%) (Auto) 12.9 % Eosinophils (%) (Auto) 1.2 % Basophils (%) (Auto) 0.2 % Neutrophils # (Auto) 4.34 1.4-6.5 K/uL Lymphocytes # (Auto) 0.52 1.2-3.4 K/uL Monocytes # (Auto) 0.73 0.11-0.59 K/uL Eosinophils # (Auto) 0.07 0-0.5 K/uL Basophils # (Auto) 0.01 0-0.2 K/uL RDW Standard Deviation 51.4 36.4-46.3 fL RDW Coefficient of Variation 15.1 11.5-14.5 % Immature Granulocyte % (Auto) 0.2 % Immature Granulocyte # (Auto) 0.01 0.00-0.02 K/uL Basophilic Stippling OCCASIONAL Ovalocytes 1+ Prothrombin Time 60.2 9.0-12.0 SECONDS Prothromb Time International Ratio 5.9 0.9-1.1 Activated Partial Thromboplast Time 39.4 21.0-31.0 SECONDS Partial Thromboplastin Ratio 1.5 Sodium Level 142 136-145 mmol/L Potassium Level 4.0 3.5-5.1 mmol/L Chloride Level 107 98-107 mmol/L Carbon Dioxide Level 31 21-32 mmol/L Anion Gap 4.0 3-11 mmol/L Blood Urea Nitrogen 8 7-18 mg/dl Creatinine 0.81 0.60-1.40 mg/dl Est Creatinine Clear Calc Drug Dose 96.3 ml/min Estimated GFR () 98.7 Estimated GFR (Non- 85.1 BUN/Creatinine Ratio 9.9 10-20 Random Glucose 108 70-99 mg/dl Calcium Level 7.9 8.5-10.1 mg/dl Magnesium Level 1.9 1.8-2.4 mg/dl
[2017-07-09 17:27] LABS: INR 6.7 (0.9-1.1)
[2017-07-09] MEDS ORDERED: PHYTONADIONE INJ 2.5 MG in SODIUM CHLORIDE 0.9% 50ML 50 ML IV ONE (17:45)
[2017-07-09] MEDS: SENNA 8.6 MG TAB PO SCH (21:22)
[2017-07-10 03:14] VITALS: BP 149/88; PULSE 76; TEMP 36.8; O2SAT 94
[2017-07-10] MEDS: ACETAMINOPHEN 500 MG TAB PO SCH ×3 (05:40→21:03)
[2017-07-10 06:30] LABS: BASO % 0.2 %; BASO ABS # 0.01 K/uL (0-0.2); EOS % 1.1 %; EOS ABS # 0.06 K/uL (0-0.5); HEMATOCRIT 27.4 % (42-52); HEMOGLOBIN 8.5 g/dL (14.0-18.0); IG# 0.01 K/uL (0.00-0.02); LYMPH % 5.4 %; LYMPH ABS # 0.31 K/uL (1.2-3.4); MEAN CELL VOLUME 93.2 fL (80-100); MEAN CORPUSCULAR HEMOGLOBIN 28.9 pg (25-34); MEAN PLATELET VOLUME 9.2 fL (7.4-10.4); MONO % 9.8 %; MONO ABS # 0.56 K/uL (0.11-0.59); NEUT % 83.3 %; NEUT ABS # 4.74 K/uL (1.4-6.5); PLATELET COUNT 238 K/uL (130-400); RED CELL DISTRIBUTION WIDTH CV 15.1 % (11.5-14.5); RED CELL DISTRIBUTION WIDTH SD 51.3 fL (36.4-46.3); WHITE BLOOD COUNT 5.69 K/uL (4.8-10.8)
[2017-07-10 06:39] LABS: PTT PATIENT 32.4 SECONDS (21.0-31.0)
[2017-07-10 06:54] LABS: CALCIUM 7.8 mg/dl (8.5-10.1); CREATININE 0.82 mg/dl (0.60-1.40); POTASSIUM 3.5 mmol/L (3.5-5.1)
[2017-07-10] MEDS: HYDROmorphone HCL 0.5MG/ML 50 ML CASSETTE IV PRN ×3 (07:14→23:09)
[2017-07-10 07:16] VITALS: BP 149/87; PULSE 80; TEMP 36.8; O2SAT 96
[2017-07-10 07:44] LABS: INR 1.5 (0.9-1.1)
[2017-07-10] MEDS: POTASSIUM CHLORIDE INJ 10 MEQ in SODIUM CHLORIDE 0.9% 1000ML 1,000 ML IV SCH (08:04)
[2017-07-10] MEDS: POTASSIUM CHLORIDE PWD 20 MEQ PACK PO SCH ×3 (09:00→21:00)
--- NOTE | 2017-07-10 09:09 | Orthopedic Progress Note ---
Orthopedic Progress Note Date of Service July 10, 2017. Subjective Post OP Day: 5 Reports: feeling well, Denies: chest pain, SOB, nausea / vomiting, light headedness, calf pain Additional Notes: INR UP OVER THE WEEKEND, 6.7. COUMADIN HELD, VIT K GIVEN, NOW DOWN TO 1.5 TODAY. KNEE EFFUSION HAS REOCCURRED. DOES NOT SEEM SEVERE PREVIOUS AND PATIENT IS NOT HAVING MUCH PAIN. DENIES CP, SOB. PATIENT ANXIOUS TO GET HOME. WORRIED ABOUT CARING FOR HIS WHO IS VISUALLY IMPAIRED. Objective calves soft nontender, N/V intact, capillary refill less than 2 sec., incision C /D/I, A&O x3, toes mobile, hemovac drainage (25CC LAST SHIFT) MODERATE TO SEVERE KNEE EFFUSION. DOES NOT EXTEND FAR PROXIMAL IT WAS PREVIOUSLY. NO ERYTHEMA. NO WOUND DRAINAGE. Date Time Temp Pulse Resp B/P (MAP) Pulse Ox O2 Delivery O2 Flow Rate FiO2 07/10/17 08:00 Room Air 07/10/17 07:16 36.8 80 16 149/87 (107) 96 Room Air 07/10/17 03:14 36.8 76 18 149/88 (108) 94 Room Air 07/09/17 23:30 93 Room Air 1.0 07/09/17 23:01 36.7 91 18 146/88 (107) 93 Room Air 07/09/17 18:59 37.1 91 18 138/77 (97) 93 Room Air 07/09/17 18:30 37.0 91 18 147/82 (103) 93 07/09/17 18:18 37.0 66 18 147/80 (102) 94 Room Air 07/09/17 18:00 36.9 66 18 160/80 (106) 94 Room Air 07/09/17 16:20 Room Air 07/09/17 15:01 37.0 66 18 130/69 (89) 94 Room Air 07/09/17 12:15 66 163/86 (111) 07/09/17 11:04 36.9 66 16 168/93 (118) 94 Room Air Laboratory Results 24 Hours: Test 07/09/17 16:47 07/10/17 06:08 Prothromb Time International Ratio 6.7 1.5 Prothrombin Time 67.5 SECONDS 15.4 SECONDS White Blood Count 5.69 K/uL Red Blood Count 2.94 M/uL Hemoglobin 8.5 g/dL Hematocrit 27.4 % Mean Corpuscular Volume 93.2 fL Mean Corpuscular Hemoglobin 28.9 pg Mean Corpuscular Hemoglobin Concent 31.0 g/dl Platelet Count 238 K/uL Mean Platelet Volume 9.2 fL Neutrophils (%) (Auto) 83.3 % Lymphocytes (%) (Auto) 5.4 % Monocytes (%) (Auto) 9.8 % Eosinophils (%) (Auto) 1.1 % Basophils (%) (Auto) 0.2 % Neutrophils # (Auto) 4.74 K/uL Lymphocytes # (Auto) 0.31 K/uL Monocytes # (Auto) 0.56 K/uL Eosinophils # (Auto) 0.06 K/uL Basophils # (Auto) 0.01 K/uL Assessment & Plan Assessment: POD #5 s/p Evacuation of hematoma, right knee x 2, elevated INR, PTT, hypokalemia - Plan: 1. Med management- restarted heparin and Coumadin but pt now with recurrent hemarthrosis. The patient's INR was 5.9 ---> 6.7 ----> 1.5 this morning after Vit K. He likely had a reaccumulation of his hemarthrosis however he is feeling better this morning. His pain is improved. WILL DISCUSS WITH DR. BROWN AND UPDATE THE PLAN THIS AFTERNOON. MAY NEED CONSIDER ANOTHER I&D. HOLD ANTICOAGULATION FOR NOW. ADDENDUM: PER DR. BROWN- NO PLANS FOR FURTHER SURGERY AT THIS TIME. OK TO RESTART COUMADIN. WOULD DO SO WITH CAUTION, RECOMMEND 1MG DAILY AND SEE HOW HE RESPONDS. DC HEMOVAC DRAIN IN AM AND POSSIBLY DC TO HOME. Inhouse Planning Pain Management: DOCK BOSS
[2017-07-10] MEDS: MULTIVITAMIN TAB PO SCH (09:47)
[2017-07-10] MEDS: DOCUSATE SODIUM 100 MG CAP PO SCH ×2 (09:48→21:00)
[2017-07-10] MEDS: LOSARTAN POTASSIUM 50 MG TAB PO SCH (09:48)
[2017-07-10] MEDS: VERAPAMIL HCL 120 MG TABCR PO SCH ×2 (09:48→21:03)
[2017-07-10] MEDS: FERROUS GLUCONATE 324 MG TAB PO SCH ×3 (09:48→17:16)
[2017-07-10] MEDS ORDERED: HEPARIN IV LOW DOSE NO BOLUS SCH (10:56)
[2017-07-10] MEDS ORDERED: OXYMETAZOLINE HCL 0.05% NA SPR 15 ML BTL ONE (12:30)
[2017-07-10 13:11] LABS: INR 1.3 (0.9-1.1); PTT PATIENT 30.9 SECONDS (21.0-31.0)
[2017-07-10] MEDS: SODIUM CHLORIDE 0.9% 1000ML 1,000 ML IV SCH ×2 (13:18→18:08)
[2017-07-10] MEDS: HEPARIN 25,000 UNIT/500ML D5W 500 ML IV SCH ×4 (13:56→23:09)
[2017-07-10 15:12] VITALS: BP 162/84; PULSE 80; TEMP 37.2; O2SAT 96
[2017-07-10] MEDS ORDERED: POTASSIUM CHLORIDE 10 MEQ TABCR PO ONE (15:45)
[2017-07-10] MEDS ORDERED: FUROSEMIDE INJ 20 MG in SYRINGE 0 ML IV ONE (15:45)
[2017-07-10] MEDS: WARFARIN SOD 2 MG TAB PO SCH (16:31)
--- NOTE | 2017-07-10 16:49 | Progress Note ---
Internal Med Progress Note Date of Service: July 10, 2017. Provider Documentation: SUBJECTIVE: pain in his knee is OK afebrile worried his inr is low likes to go home 'denies chest pain or sob ambulating ok OBJECTIVE: Vital Signs-as noted below Exam: General-alert and oriented. Not in distress ENT-Normal hearing Neck-no neck masses Lungs-cta b/l no wheezing no crackles Heart-s1 and s2 heard regular rate and rhythm no murmurs Abdomen-soft bowel sounds present non tender no distension Extremities- right knee in dressing drain seen Neuro-alert and awake 'moves extremities Lab data as noted below. ASSESSMENT & PLAN: 1. R knee hemarthrosis initially in Mar post knee shot and 2/2 supratherapeutic anticoagulation status post right knee arthroscopy presented with recurrent hematoma secondary to again elevated INR s/p evacuation (07/04) and required two units of prbc. Was started on IV heparin bridge 30hrs later as patient has MVR and 12hrs later again developed hematoma in same knee extending up to thigh. 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 Heparin and Coumadin restarted.Today again complains of severe pain.possible recurrent hematoma. inr 6.7 yesterday and received vitamin k. today. Ortho hoping patient don't need another procedure. 2. s/p mechanical mitral valve-goal INR 2.5-3.5. Seen by Cardiology INR was 6.7 yesterday and received vitamin k. inr 1.5 today. restarted Coumadin at low dose and low dose iv heparin. MAy d/c on Lovenox bridge if ortho not planning any more procedures. 3. Chronic atrial fibrillation-rate is controlled with verapamil. Anticoagulation as above 4. HTN-on Cozaar and verapamil. elevated form pain. iv hydralazine prn Will monitor 5. 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 6. Acute posthemorrhagic anemia-s/p total 3units transfused so far hb 8.6 today. Goal hb>8.0. 7. Hypokalemia will replace f/u labs 8. Epistaxis stopped will monitror DVT proph- iv heparin Full Code Dispo-to be determined Vital Signs: Date Time Temp Pulse Resp B/P (MAP) Pulse Ox O2 Delivery O2 Flow Rate FiO2 07/10/17 15:12 37.2 80 18 162/84 (110) 96 Room Air 07/10/17 08:00 Room Air 07/10/17 07:16 36.8 80 16 149/87 (107) 96 Room Air 07/10/17 03:14 36.8 76 18 149/88 (108) 94 Room Air 07/09/17 23:30 93 Room Air 1.0 07/09/17 23:01 36.7 91 18 146/88 (107) 93 Room Air 07/09/17 18:59 37.1 91 18 138/77 (97) 93 Room Air 07/09/17 18:30 37.0 91 18 147/82 (103) 93 07/09/17 18:18 37.0 66 18 147/80 (102) 94 Room Air 07/09/17 18:00 36.9 66 18 160/80 (106) 94 Room Air Lab Results: Results Past 24 Hours Test 07/09/17 16:47 07/10/17 06:08 07/10/17 12:45 Range/Units Prothrombin Time 67.5 15.4 13.5 9.0-12.0 SECONDS Prothromb Time International Ratio 6.7 1.5 1.3 0.9-1.1 White Blood Count 5.69 4.8-10.8 K/uL Red Blood Count 2.94 4.7-6.1 M/uL Hemoglobin 8.5 14.0-18.0 g/dL Hematocrit 27.4 42-52 % Mean Corpuscular Volume 93.2 80-100 fL Mean Corpuscular Hemoglobin 28.9 25-34 pg Mean Corpuscular Hemoglobin Concent 31.0 32-36 g/dl Platelet Count 238 130-400 K/uL Mean Platelet Volume 9.2 7.4-10.4 fL Neutrophils (%) (Auto) 83.3 % Lymphocytes (%) (Auto) 5.4 % Monocytes (%) (Auto) 9.8 % Eosinophils (%) (Auto) 1.1 % Basophils (%) (Auto) 0.2 % Neutrophils # (Auto) 4.74 1.4-6.5 K/uL Lymphocytes # (Auto) 0.31 1.2-3.4 K/uL Monocytes # (Auto) 0.56 0.11-0.59 K/uL Eosinophils # (Auto) 0.06 0-0.5 K/uL Basophils # (Auto) 0.01 0-0.2 K/uL RDW Standard Deviation 51.3 36.4-46.3 fL RDW Coefficient of Variation 15.1 11.5-14.5 % Immature Granulocyte % (Auto) 0.2 % Immature Granulocyte # (Auto) 0.01 0.00-0.02 K/uL Red Blood Cell Morphology Unremarkable Activated Partial Thromboplast Time 32.4 30.9 21.0-31.0 SECONDS Partial Thromboplastin Ratio 1.2 1.2 Sodium Level 140 136-145 mmol/L Potassium Level 3.5 3.5-5.1 mmol/L Chloride Level 107 98-107 mmol/L Carbon Dioxide Level 28 21-32 mmol/L Anion Gap 5.0 3-11 mmol/L Blood Urea Nitrogen 7 7-18 mg/dl Creatinine 0.82 0.60-1.40 mg/dl Est Creatinine Clear Calc Drug Dose 95.1 ml/min Estimated GFR () 98.2 Estimated GFR (Non- 84.7 BUN/Creatinine Ratio 9.0 10-20 Random Glucose 132 70-99 mg/dl Calcium Level 7.8 8.5-10.1 mg/dl Magnesium Level 2.0 1.8-2.4 mg/dl
[2017-07-10 19:17] VITALS: BP 167/88; PULSE 95; TEMP 37.4; O2SAT 96
[2017-07-10] MEDS: HydrALAZINE HCL 20 MG/ML VIAL IV. PRN (19:25)
[2017-07-10 20:18] LABS: PTT PATIENT 36.7 SECONDS (21.0-31.0)
[2017-07-10 20:33] VITALS: BP 133/67
[2017-07-10] MEDS ORDERED: HEPARIN IV BOLUS 4,500 UNIT in SYRINGE 0 ML IV ONE (20:45)
[2017-07-10] MEDS: SENNA 8.6 MG TAB PO SCH (21:00)
[2017-07-10 22:56] VITALS: BP 154/77; PULSE 72; TEMP 36.7; O2SAT 97
[2017-07-11] VITALS (9 sets, daily range): BP systolic 150–181; BP diastolic 71–90; PULSE 75–85; TEMP 36.8–37.5; O2SAT 90–97
[2017-07-11 03:27] LABS: BASO % 0.2 %; BASO ABS # 0.01 K/uL (0-0.2); EOS % 2.2 %; EOS ABS # 0.11 K/uL (0-0.5); HEMATOCRIT 25.8 % (42-52); HEMOGLOBIN 8.1 g/dL (14.0-18.0); IG# 0.01 K/uL (0.00-0.02); LYMPH % 13.1 %; LYMPH ABS # 0.64 K/uL (1.2-3.4); MEAN CELL VOLUME 92.1 fL (80-100); MEAN CORPUSCULAR HEMOGLOBIN 28.9 pg (25-34); MEAN CORPUSCULAR HGB CONC 31.4 g/dl (32-36); MONO % 14.5 %; MONO ABS # 0.71 K/uL (0.11-0.59); NEUT % 69.8 %; NEUT ABS # 3.42 K/uL (1.4-6.5); PLATELET COUNT 228 K/uL (130-400); RED CELL DISTRIBUTION WIDTH CV 14.7 % (11.5-14.5); RED CELL DISTRIBUTION WIDTH SD 49.8 fL (36.4-46.3)
[2017-07-11 03:41] LABS: CALCIUM 7.7 mg/dl (8.5-10.1); CREATININE 0.89 mg/dl (0.60-1.40)
[2017-07-11 03:42] LABS: INR 1.2 (0.9-1.1)
[2017-07-11 03:43] LABS: PTT PATIENT 49.1 SECONDS (21.0-31.0)
[2017-07-11] MEDS: ACETAMINOPHEN 500 MG TAB PO SCH ×2 (05:41→14:00)
[2017-07-11] MEDS: HEPARIN 25,000 UNIT/500ML D5W 500 ML IV SCH (06:55)
[2017-07-11] MEDS: HYDROmorphone HCL 0.5MG/ML 50 ML CASSETTE IV PRN (06:56)
[2017-07-11] MEDS: DOCUSATE SODIUM 100 MG CAP PO SCH ×2 (09:00→09:24)
[2017-07-11] MEDS: POTASSIUM CHLORIDE PWD 20 MEQ PACK PO SCH (09:00)
[2017-07-11] MEDS: FERROUS GLUCONATE 324 MG TAB PO SCH ×2 (09:23→12:39)
[2017-07-11] MEDS: VERAPAMIL HCL 120 MG TABCR PO SCH (09:24)
[2017-07-11] MEDS: MULTIVITAMIN TAB PO SCH (09:24)
[2017-07-11] MEDS: LOSARTAN POTASSIUM 50 MG TAB PO SCH (09:25)
--- NOTE | 2017-07-11 09:59 | Orthopedic Progress Note ---
Orthopedic Progress Note Date of Service July 11, 2017. Subjective Post OP Day: 6 Reports: feeling well, pain controlled w PO medications, Denies: complaints, chest pain, SOB, nausea / vomiting, light headedness, calf pain Additional Notes: feels his knee pain is improving from yesterday. denies fever/chills Objective calves soft nontender, N/V intact, incision C/D/I, A&O x3, toes mobile, hemovac drainage (50cc overnight) Date Time Temp Pulse Resp B/P (MAP) Pulse Ox O2 Delivery O2 Flow Rate FiO2 07/11/17 07:34 36.8 85 20 181/90 (120) 96 Room Air 07/11/17 03:38 36.9 82 16 150/74 (99) 94 Room Air 07/11/17 00:05 97 Room Air 1.0 07/10/17 22:56 36.7 72 16 154/77 (102) 97 Room Air 07/10/17 20:33 133/67 (89) 07/10/17 19:20 Room Air 07/10/17 19:17 37.4 95 18 167/88 (114) 96 Room Air 07/10/17 15:12 37.2 80 18 162/84 (110) 96 Room Air Laboratory Results 24 Hours: Test 07/10/17 12:45 07/11/17 03:15 Prothromb Time International Ratio 1.3 1.2 Prothrombin Time 13.5 SECONDS 12.3 SECONDS White Blood Count 4.90 K/uL Red Blood Count 2.80 M/uL Hemoglobin 8.1 g/dL Hematocrit 25.8 % Mean Corpuscular Volume 92.1 fL Mean Corpuscular Hemoglobin 28.9 pg Mean Corpuscular Hemoglobin Concent 31.4 g/dl Platelet Count 228 K/uL Mean Platelet Volume 9.0 fL Neutrophils (%) (Auto) 69.8 % Lymphocytes (%) (Auto) 13.1 % Monocytes (%) (Auto) 14.5 % Eosinophils (%) (Auto) 2.2 % Basophils (%) (Auto) 0.2 % Neutrophils # (Auto) 3.42 K/uL Lymphocytes # (Auto) 0.64 K/uL Monocytes # (Auto) 0.71 K/uL Eosinophils # (Auto) 0.11 K/uL Basophils # (Auto) 0.01 K/uL Assessment & Plan Assessment: POD #6 s/p Evacuation of hematoma, right knee x 2, elevated INR, PTT, hypokalemia Plan: Patient examined and care discussed with dr negron, no further surgical intervention recommended at this time, drain was removed this am, recommend continued RICE management, carefully restart coumadin and close follow up with coag clinic/PCP, appointment scheduled to follow up with dr negrno at [facility] [place] on 07/18 @ 1215. INR @ 1.2 this am.
--- NOTE | 2017-07-11 10:01 | Consultant Recommendations ---
Club Director Recommendations Date of Service July 11, 2017. Club Director Recommendations Follow up scheduled with dr negron @ [facility] on 07/18/17 @ 12:15 continue conservative measures including rest, ice, compression with bharat wrap and elevation close monitoring of INR with coag clinic/ PCP. ACTIVITY RECOMMENDATIONS: * You may walk on the leg with or without crutches as comfort permits. * You may shower now over your incisions. SPECIAL CARE INSTRUCTIONS: * You may cleanse the skin adjacent to the small wounds with soap and water at the time of the first dressing change. * The application of an ice bag to the front and sides of the knee will decrease swelling and discomfort for the first 48 hours. * The small incisions may be sore and develop bruising. This bruising does not require any special care. SPECIAL PRECAUTIONS: * If you experience unusual pain unrelieved by prescriptions, temperature elevation (100 degrees F. or above) or progressive swelling or bleeding, you should contact our office at for further evaluation. * You may have been prescribed pain medication. If you experience nausea and/or fine skin rash, discontinue this medication and contact our office at for an alternate medication. DRESSING: * Dressing should be comfortable and absorb any leakage of fluid and/or blood. * The dressing may become moist or bloodstained. * Bandaids may be used over next several days as needed and can be discontinued when there is not further drainage from the wounds. FOLLOW UP VISIT: follow up with dr negron @ [facility] [place] on 07/18/17 at 12:15.
[2017-07-11] MEDS ORDERED: FUROSEMIDE INJ 20 MG in SYRINGE 0 ML IV SCH (10:30)
[2017-07-11] MEDS ORDERED: ACETAMINOPHEN 325 MG TAB PO SCH (10:30)
[2017-07-11] MEDS ORDERED: ENOXAPARIN 80 MG/0.8 ML SYR SQ ONE (11:00)
[2017-07-11] MEDS ORDERED: HEPARIN 25,000 UNIT/500ML D5W 500 ML IV SCH (11:15)
[2017-07-11] MEDS ORDERED: ENOXAPARIN 100 MG/1ML SYR SQ ONE (11:45)
--- NOTE | 2017-07-11 11:56 | Progress Note ---
Internal Med Progress Note Date of Service: July 11, 2017. Provider Documentation: SUBJECTIVE: pain in his knee is OK AMBULATED OK AFEBRILE MOVED BOWELS NO SOB DOES NOT WANT TO STAY IN HOSPITAL ANYMORE' LIKES TO GO HOME TODAY OBJECTIVE: Vital Signs-as noted below Exam: General-alert and oriented. Not in distress ENT-Normal hearing Neck-no neck masses Lungs-cta b/l no wheezing no crackles Heart-s1 and s2 heard regular rate and rhythm no murmurs Abdomen-soft bowel sounds present non tender no distension Extremities- right knee in dressing. drain taken out Neuro-alert and awake 'moves extremities Lab data as noted below. ASSESSMENT & PLAN: 1. R knee hemarthrosis initially in Mar post knee shot and 2/2 supratherapeutic anticoagulation status post right knee arthroscopy presented with recurrent hematoma secondary to again elevated INR s/p evacuation (07/04) and required two units of prbc. Was started on IV heparin bridge 30hrs later as patient has MVR and 12hrs later again developed hematoma in same knee extending up to thigh. Heparin was stopped and s/p repeat evacuation(07/05) and drain placed.On LONG DISTANCE OPERATOR for pain. Heparin and Coumadin restarted. again complains of severe pain on 07/08/17.possible recurrent hematoma. inr again went upto 6.7 on 07/09/17 and received vitamin k.inr currently 1.2. on heparin bridge Ortho hoping patient don't need another procedure.Patient currently asymptomatic. Ortho took off drains and f/u as out patient 2. s/p mechanical mitral valve-goal INR 2.5-3.5. Seen by Cardiology INR was 6.7 /123/198 and received vitamin k. inr 1.2 today. restarted Coumadin at low dose and iv heparin. MAy d/c. Plan for Lovenox bridge and Coumadin . patient adamantly doesn't want to stay in the hospital.Needs close followup with Coumadin clinic 3. Chronic atrial fibrillation-rate is controlled with verapamil. Anticoagulation as above 4. HTN-on Cozaar and verapamil. . iv hydralazine prn Will monitor 5. 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 6. Acute posthemorrhagic anemia-s/p total 3units transfused so far hb 8.1 today. will transfuse one more unit today 7. Hypokalemia will replace f/u labs 8. Epistaxis stopped will monitror DVT proph-Lovenox Full Code Dispo-Plan for d/c home with home health today Vital Signs: Date Time Temp Pulse Resp B/P (MAP) Pulse Ox O2 Delivery O2 Flow Rate FiO2 07/11/17 08:00 Room Air 07/11/17 07:34 36.8 85 20 181/90 (120) 96 Room Air 07/11/17 03:38 36.9 82 16 150/74 (99) 94 Room Air 07/11/17 00:05 97 Room Air 1.0 07/10/17 22:56 36.7 72 16 154/77 (102) 97 Room Air 07/10/17 20:33 133/67 (89) 07/10/17 19:20 Room Air 07/10/17 19:17 37.4 95 18 167/88 (114) 96 Room Air 07/10/17 15:12 37.2 80 18 162/84 (110) 96 Room Air Lab Results: Results Past 24 Hours Test 07/10/17 12:45 07/10/17 19:56 07/11/17 03:15 Range/Units Prothrombin Time 13.5 12.3 9.0-12.0 SECONDS Prothromb Time International Ratio 1.3 1.2 0.9-1.1 Activated Partial Thromboplast Time 30.9 36.7 49.1 21.0-31.0 SECONDS Partial Thromboplastin Ratio 1.2 1.4 1.9 White Blood Count 4.90 4.8-10.8 K/uL Red Blood Count 2.80 4.7-6.1 M/uL Hemoglobin 8.1 14.0-18.0 g/dL Hematocrit 25.8 42-52 % Mean Corpuscular Volume 92.1 80-100 fL Mean Corpuscular Hemoglobin 28.9 25-34 pg Mean Corpuscular Hemoglobin Concent 31.4 32-36 g/dl Platelet Count 228 130-400 K/uL Mean Platelet Volume 9.0 7.4-10.4 fL Neutrophils (%) (Auto) 69.8 % Lymphocytes (%) (Auto) 13.1 % Monocytes (%) (Auto) 14.5 % Eosinophils (%) (Auto) 2.2 % Basophils (%) (Auto) 0.2 % Neutrophils # (Auto) 3.42 1.4-6.5 K/uL Lymphocytes # (Auto) 0.64 1.2-3.4 K/uL Monocytes # (Auto) 0.71 0.11-0.59 K/uL Eosinophils # (Auto) 0.11 0-0.5 K/uL Basophils # (Auto) 0.01 0-0.2 K/uL RDW Standard Deviation 49.8 36.4-46.3 fL RDW Coefficient of Variation 14.7 11.5-14.5 % Immature Granulocyte % (Auto) 0.2 % Immature Granulocyte # (Auto) 0.01 0.00-0.02 K/uL Red Blood Cell Morphology Unremarkable Sodium Level 141 136-145 mmol/L Potassium Level 4.0 3.5-5.1 mmol/L Chloride Level 106 98-107 mmol/L Carbon Dioxide Level 30 21-32 mmol/L Anion Gap 5.0 3-11 mmol/L Blood Urea Nitrogen 5 7-18 mg/dl Creatinine 0.89 0.60-1.40 mg/dl Est Creatinine Clear Calc Drug Dose 87.6 ml/min Estimated GFR () 94.9 Estimated GFR (Non- 81.9 BUN/Creatinine Ratio 6.0 10-20 Random Glucose 118 70-99 mg/dl Calcium Level 7.7 8.5-10.1 mg/dl Magnesium Level 1.9 1.8-2.4 mg/dl
[2017-07-11] MEDS ORDERED: SENN8.6T7 PO ×2 (12:33→12:40)
[2017-07-11] MEDS ORDERED: RXC5 PO ×2 (12:33→12:40)
[2017-07-11] MEDS ORDERED: ENOX100I SC ×2 (12:33→12:40)
[2017-07-11] MEDS ORDERED: FRRG PO ×2 (12:33→12:40)
[2017-07-11] MEDS ORDERED: CMD25 PO ×2 (12:33→12:40)
[2017-07-11] MEDS ORDERED: MULT-890 PO ×2 (12:33→12:40)
--- NOTE | 2017-07-11 12:38 | Discharge Instructions ---
Discharge Instructions Date of Service July 11, 2017. Admission Reason for Admission: Hemarthrosis,Hypokalemia Discharge Discharge Diagnosis / Problem: rt knee hemarthoisis, anemia, hypokalemia Discharge Goals Goal(s): Decrease discomfort, Improve function Activity Recommendations Activity Limitations: resume your previous activity (as tolerated) . Instructions / Follow-Up Instructions / Follow-Up FOLLOWUP WITH FAMILY DOCTOR Cosme Mckeon PA-C ON June AT 12:30PM. [place] [facility] [place]. FOLLOWUP WITH COUMADIN CLINIC FOR COUMADIN DOSING. COUMADIN CLINIC NOTIFIED TO TAKE COUMADIN 2.5MG DAILY IN EVENING UNTIL FURTHER INSTRUCTIONS FROM COUMADIN CLINIC. LAB: PT/INR ON MondayJune AND FOLLOW RESULTS WITH COUMADIN CLINIC. FURTHER LAB TESTING AND COUMADIN DOSING ADJUSTMENTS PER COUMADIN CLINIC. TO TAKE LOVENOX SHOTS 100MG SUBCUTANEOUSLY TWICE DAILY UNTIL STOP INSTRUCTIONS FROM COUMADIN CLINIC. ( MOSTLY ABOUT 5 DAYS) Ortho recommendations: Programmer Engineering And Scientific Recommendations Date of Service July 11, 2017. Programmer Engineering And Scientific Recommendations Follow up scheduled with dr negron @ [facility] on 07/18/17 @ 12:15 continue conservative measures including rest, ice, compression with bharat wrap and elevation close monitoring of INR with coag clinic/ PCP. ACTIVITY RECOMMENDATIONS: * You may walk on the leg with or without crutches as comfort permits. * You may shower now over your incisions. SPECIAL CARE INSTRUCTIONS: * You may cleanse the skin adjacent to the small wounds with soap and water at the time of the first dressing change. * The application of an ice bag to the front and sides of the knee will decrease swelling and discomfort for the first 48 hours. * The small incisions may be sore and develop bruising. This bruising does not require any special care. SPECIAL PRECAUTIONS: * If you experience unusual pain unrelieved by prescriptions, temperature elevation (100 degrees F. or above) or progressive swelling or bleeding, you should contact our office at for further evaluation. * You may have been prescribed pain medication. If you experience nausea and/or fine skin rash, discontinue this medication and contact our office at for an alternate medication. DRESSING: * Dressing should be comfortable and absorb any leakage of fluid and/or blood. * The dressing may become moist or bloodstained. * Bandaids may be used over next several days as needed and can be discontinued when there is not further drainage from the wounds. FOLLOW UP VISIT: [place] [facility] [place] 12:15. Current Hospital Diet Patient's current hospital diet: AHA Diet (Heart Healthy), Regular Diet Discharge Diet Recommended Diet: AHA Diet (Heart Healthy) Procedures Procedures Performed: Right Knee Arthroscopic Washout, Evacuation of Hematoma with Placement of Drain Pending Studies Studies pending at discharge: no Medical Emergencies . Who to Call and When: Medical Emergencies: If at any time you feel your situation is an emergency, please call 911 immediately. . Non-Emergent Contact Non-Emergency issues call your: Primary Care Provider . . "Provider Documentation" section prepared by Patricio Napoles. . Programmer Engineering And Scientific Recommendations Programmer Engineering And Scientific Recommendations: Follow up scheduled with dr negron @ [facility] on 07/18/17 @ 12:15 continue conservative measures including rest, ice, compression with bharat wrap and elevation close monitoring of INR with coag clinic/ PCP. ACTIVITY RECOMMENDATIONS: * You may walk on the leg with or without crutches as comfort permits. * You may shower now over your incisions. SPECIAL CARE INSTRUCTIONS: * You may cleanse the skin adjacent to the small wounds with soap and water at the time of the first dressing change. * The application of an ice bag to the front and sides of the knee will decrease swelling and discomfort for the first 48 hours. * The small incisions may be sore and develop bruising. This bruising does not require any special care. SPECIAL PRECAUTIONS: * If you experience unusual pain unrelieved by prescriptions, temperature elevation (100 degrees F. or above) or progressive swelling or bleeding, you should contact our office at for further evaluation. * You may have been prescribed pain medication. If you experience nausea and/or fine skin rash, discontinue this medication and contact our office at for an alternate medication. DRESSING: * Dressing should be comfortable and absorb any leakage of fluid and/or blood. * The dressing may become moist or bloodstained. * Bandaids may be used over next several days as needed and can be discontinued when there is not further drainage from the wounds. FOLLOW UP VISIT: [place] [facility] [place] at 12:15.
[2017-07-11] MEDS: WARFARIN SOD 2 MG TAB PO SCH (15:18)
--- NOTE | 2017-07-13 18:08 | Discharge Summary ---
Discharge Summary Date of Service July 13, 2017. Discharge Summary Admission Date: July 02, 2017 at 11:43 Discharge Date: July 11, 2017 Discharge Disposition: Home with services Principal Diagnosis: RIGHT KNEE HEMATOMA S/P EVACUATION TWICE ELEVATED INR Secondary Diagnoses/Problems: 1) Acute kidney injury (2) Anemia (3) Anemia (4) Anticoagulated on warfarin (5) Atrial Fibrillation (6) Atypical chest pain (7) Binocular vision disorder with diplopia (8) Cerebrovascular disease (9) Chronic pulmonary aspiration (10) Coagulopathy (11) CVA, old, disturbances of vision (12) Dehydration (13) Double vision with both eyes open (14) Effusion of knee joint right (15) Effusion of knee joint right (16) Elevated INR (17) Hemarthrosis (18) Hematoma (19) Hematoma (20) Hematoma of right thigh (21) History of lower GI bleeding (22) History of oral cancer (23) HTN (hypertension) (24) Hypertension (25) Hypertension Nos (26) Hypertensive urgency (27) Hypokalemia (28) Left sided chest pain (29) Noncompliance with medication regimen (30) Rectal bleeding (31) Subtherapeutic anticoagulation (32) Supratherapeutic INR (33) Supratherapeutic INR (34) TIA (transient ischemic attack) (35) Tinnitus Nos Procedures: CXR: Cardiomegaly without acute process. RIGHT KNEE US: An 11 x 9 x 5 cm complex fluid collection within the anterolateral aspect of the right knee. This could contain a few small foci of gas and therefore may represent a hematoma versus abscess. Clinical correlation recommended. RIGHT KNEE US REPEAT: There is again noted an 18 x 6 x 10 cm complex fluid collection within the anterolateral aspect of the knee. This is similar in size and was likely underestimated on the prior study. The intact location is difficult to identify but is within the deep soft tissues and could represent a complex suprapatellar knee effusion. Consultations: Orthopedics-Dr. Negron Cardiology-Dr. Aurelio Briggs Medication Reconciliation New Medications: Enoxaparin (Lovenox) 100 Mg/Ml Inj 100 MG SC BID for 7 Days Sennosides-Docusate Sodium (Senokot S) 1 Tab Tab 2 TAB PO HS PRN for Constipation, #30 TAB Warfarin Sod (Coumadin) 2.5 Mg Tab 2.5 MG PO DAILY, #30 1 Refill Ferrous Gluconate (Ferrous Gluconate) 324 Mg Tab 324 MG PO BID, #60 TAB 1 Refill Multiple Vitamin (Daily-Savannah) 1 Tab Tab 1 TAB PO QAM, #30 TAB 1 Refill Oxycodone HCl (Oxycodone HCl) 5 Mg Tab 5 MG PO Q6 PRN for Pain, #14 TAB Continued Medications: Furosemide (Furosemide) 20 Mg Tab 20 MG PO HS PRN for edema Losartan Potassium (Cozaar) 100 Mg Tab 100 MG PO DAILY, TAB Potassium Chloride (K-Tab) 20 Meq Tab 20 MEQ PO UD PRN for with furosemide Verapamil (Calan) 120 Mg Tab 120 MG PO BID, TAB Discontinued Medications: Indomethacin (Indocin) 25 Mg Cap 25 MG PO TIDM PRN for GOUT Warfarin Sod (Coumadin) 2.5 Mg Tab 2.5 MG PO 3XWK, TAB mon, wed, fri Warfarin Sodium (Warfarin Sodium) 5 Mg Tab 1 TAB PO 4XWK tues, thurs, sat, sun Admission Information HPI (per Admitting provider): This is a 77-year-old male with history of mechanical mitral valve on Coumadin/ history of A. fib/ high blood pressure /prior history of CVA with subtherapeutic INR-no neurological deficit presented to ED with complaint of painful swelling of right knee Patient was last admitted to [facility] on April 06, 2017 with right knee/thigh hematoma in the setting of elevated INR Underwent evacuation of hematoma by orthopedics Patient was seen at [place] with Dr. Negron approximately 3 weeks ago Has arthroscopic procedure with debridement/synovectomy of right knee joint on 06/21/17 Coumadin dose was interrupted and patient was put on Lovenox bridge for the procedure Sutures were removed last week at Dr. Negron office For the last 1-2 days patient has been experiencing severe pain and swelling on right knee/unable to walk or bear wt Noticed bleeding from the right knee at suture site last night In the ER his lab shows INR was elevated ~10/hemoglobin 8.8 denies of any dark stool no blood in stool no complain of any fever chills no shortness of breath no dyspnea on exertion cough IV 2.5 vitamin K given in ER after discussion with anticoagulation pharmacy Dr. Santiago Physical Exam (per Admitting): General Appearance: no apparent distress Head: normocephalic, atraumatic Eyes: normal inspection, PERRL, EOMI, sclerae normal Neck: thyroid normal, no carotid bruits, trachea midline Respiratory/Chest: chest non-tender, lungs clear, normal breath sounds, no respiratory distress Cardiovascular: regular rate, rhythm Abdomen/GI: normal bowel sounds, non tender, soft Extremities/Musculoskelatal: + swelling (Right knee swelling/positive tenderness/right knee suture site intact no active bleeding noted) Neurologic/Psych: no motor/sensory deficits, alert, normal mood/affect, oriented x 3 Hospital Course 1. R knee hemarthrosis initially in Mar post knee shot and 2/2 supratherapeutic anticoagulation status post right knee arthroscopy presented with recurrent hematoma secondary to again elevated INR s/p evacuation (07/04) and required two units of prbc. Was started on IV heparin bridge 30hrs later as patient has MVR and 12hrs later again developed hematoma in same knee extending up to thigh. Heparin was stopped and s/p repeat evacuation(07/05) and drain placed.On FINANCIAL ANALYSIS ADVISOR for pain. Heparin and Coumadin restarted. again complains of severe pain on 07/08/17.possible recurrent hematoma. inr again went upto 6.7 on 07/09/17 and received vitamin k.inr currently 1.2. on heparin bridge Ortho hoping patient don't need another procedure.Patient currently asymptomatic. Ortho took off drains and f/u as out patient 2. s/p mechanical mitral valve-goal INR 2.5-3.5. Seen by Cardiology INR was 6.7 5123/198 and received vitamin k. inr 1.2 today. restarted Coumadin at low dose and iv heparin. June d/c. Plan for Lovenox bridge and Coumadin . patient adamantly doesn't want to stay in the hospital.Needs close followup with Coumadin clinic 3. Chronic atrial fibrillation-rate is controlled with verapamil. Anticoagulation as above 4. HTN-on Cozaar and verapamil. . iv hydralazine prn Will monitor 5. 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 6. Acute posthemorrhagic anemia-s/p total 3units transfused so far hb 8.1 today. will transfuse one more unit today 7. Hypokalemia will replace f/u labs 8. Epistaxis stopped will monitror DVT proph-Lovenox Full Code Dispo-Plan for d/c home with home health today Total time spent on discharge = 50MINUTES This includes examination of the patient, discharge planning, medication reconciliation, and communication with other providers. Discharge Instructions Please take this sheet to every appointment for the next month Discharge Instructions Date of Service July 11, 2017. Admission Reason for Admission: Hemarthrosis,Hypokalemia Discharge Discharge Diagnosis / Problem: rt knee hemarthoisis, anemia, hypokalemia Discharge Goals Goal(s): Decrease discomfort, Improve function Activity Recommendations Activity Limitations: resume your previous activity (as tolerated) . Instructions / Follow-Up Instructions / Follow-Up FOLLOWUP WITH FAMILY DOCTOR Cosme Mckeon PA-C ON June AT 12:30PM. Follow up with Dr. Negron @ [facility] [place] on 07/18/17 at 12:15. FOLLOWUP WITH COUMADIN CLINIC FOR COUMADIN DOSING. COUMADIN CLINIC NOTIFIED TO TAKE COUMADIN 2.5MG DAILY IN EVENING UNTIL FURTHER INSTRUCTIONS FROM COUMADIN CLINIC. LAB: PT/INR ON MondayJune AND FOLLOW RESULTS WITH COUMADIN CLINIC. FURTHER LAB TESTING AND COUMADIN DOSING ADJUSTMENTS PER COUMADIN CLINIC. TO TAKE LOVENOX SHOTS 100MG SUBCUTANEOUSLY TWICE DAILY UNTIL STOP INSTRUCTIONS FROM COUMADIN CLINIC. ( MOSTLY ABOUT 5 DAYS) Ortho recommendations: Slumber Room Attendant Recommendations Date of Service July 11, 2017. Slumber Room Attendant Recommendations Follow up scheduled with dr negron @ [facility] on 07/18/17 @ 12:15 continue conservative measures including rest, ice, compression with bharat wrap and elevation close monitoring of INR with coag clinic/ PCP. ACTIVITY RECOMMENDATIONS: * You may walk on the leg with or without crutches as comfort permits. * You may shower now over your incisions. SPECIAL CARE INSTRUCTIONS: * You may cleanse the skin adjacent to the small wounds with soap and water at the time of the first dressing change. * The application of an ice bag to the front and sides of the knee will decrease swelling and discomfort for the first 48 hours. * The small incisions may be sore and develop bruising. This bruising does not require any special care. SPECIAL PRECAUTIONS: * If you experience unusual pain unrelieved by prescriptions, temperature elevation (100 degrees F. or above) or progressive swelling or bleeding, you should contact our office at for further evaluation. * You may have been prescribed pain medication. If you experience nausea and/or fine skin rash, discontinue this medication and contact our office at for an alternate medication. DRESSING: * Dressing should be comfortable and absorb any leakage of fluid and/or blood. * The dressing may become moist or bloodstained. * Bandaids may be used over next several days as needed and can be discontinued when there is not further drainage from the wounds. FOLLOW UP VISIT: follow up with dr negron @ [facility] [place] on 07/18/17 at 12:15. Current Hospital Diet Patient's current hospital diet: AHA Diet (Heart Healthy), Regular Diet Discharge Diet Recommended Diet: AHA Diet (Heart Healthy) Procedures Procedures Performed: Right Knee Arthroscopic Washout, Evacuation of Hematoma with Placement of Drain Pending Studies Studies pending at discharge: no Medical Emergencies . Who to Call and When: Medical Emergencies: If at any time you feel your situation is an emergency, please call 911 immediately. . Non-Emergent Contact Non-Emergency issues call your: Primary Care Provider . . "Provider Documentation" section prepared by Patricio Napoles. . Slumber Room Attendant Recommendations Slumber Room Attendant Recommendations: Follow up scheduled with dr negron @ [facility] on 07/18/17 @ 12:15 continue conservative measures including rest, ice, compression with bharat wrap and elevation close monitoring of INR with coag clinic/ PCP. ACTIVITY RECOMMENDATIONS: * You may walk on the leg with or without crutches as comfort permits. * You may shower now over your incisions. SPECIAL CARE INSTRUCTIONS: * You may cleanse the skin adjacent to the small wounds with soap and water at the time of the first dressing change. * The application of an ice bag to the front and sides of the knee will decrease swelling and discomfort for the first 48 hours. * The small incisions may be sore and develop bruising. This bruising does not require any special care. SPECIAL PRECAUTIONS: * If you experience unusual pain unrelieved by prescriptions, temperature elevation (100 degrees F. or above) or progressive swelling or bleeding, you should contact our office at for further evaluation. * You may have been prescribed pain medication. If you experience nausea and/or fine skin rash, discontinue this medication and contact our office at for an alternate medication. DRESSING: * Dressing should be comfortable and absorb any leakage of fluid and/or blood. * The dressing may become moist or bloodstained. * Bandaids may be used over next several days as needed and can be discontinued when there is not further drainage from the wounds. FOLLOW UP VISIT: follow up with dr negron @ [facility] [place] on 07/18/17 at 12:15. Additional Copies To Cosme Medellin PA-C
== END 2017-07-11 16:09 | disposition home health service (06) | DRG 488 ==
LOC: C.EDB 08:35 → ENRESERV 11:23 → C.MSN 11:43
PROVIDERS: ADMIT Hospitalist; ATTEND Hospitalist
PROC: 0SCC0ZZ Extirpation of Matter from Right Knee Joint, Open Approach (ICD-10-PCS; principal; 2017-07-03 13:30)
PROC: 0SCC4ZZ Extirpation of Matter from Right Knee Joint, Percutaneous Endoscopic Approach (ICD-10-PCS; 2017-07-05)
DX: M25.061 Hemarthrosis, right knee (principal); D68.32 Hemorrhagic disorder due to extrinsic circulating anticoagulants; D62 Acute posthemorrhagic anemia; T45.515A Adverse effect of anticoagulants, initial encounter; Z98.890 Other specified postprocedural states; Z79.01 Long term (current) use of anticoagulants; Z86.73 Personal history of transient ischemic attack (TIA), and cerebral infarction without residual deficits; Z95.2 Presence of prosthetic heart valve; Z83.3 Family history of diabetes mellitus; Z88.8 Allergy status to other drugs, medicaments and biological substances; I10 Essential (primary) hypertension; I48.2 Chronic atrial fibrillation; E87.6 Hypokalemia; Z85.89 Personal history of malignant neoplasm of other organs and systems; Z92.3 Personal history of irradiation; Y92.019 Unspecified place in single-family (private) house as the place of occurrence of the external cause

== ENCOUNTER 2018-07-23 08:00 | Inpatient (IN) ==
--- OUTSIDE RECORDS SUMMARY | 2018-07-23 08:03 | External Medical Summary | Continuity of Care Document ---
:1940 Author Name Spenser Beck Address Unavailable Unavailable , Care Team Providers Name Role Phone NonMNPG M.D. Unavailable [email or web address] Kait BOND Unavailable Unavailable Unavailable Unavailable Unavailable Problems Memory loss (780.93) (R41.3) Hypertension (401.9) (I10) History of chronic atrial fibrillation (V12.59) (Z86.79) Cardioembolic stroke (434.11) (I63.9) Edema (782.3) (R60.9) Chronic cerebral ischemia (437.1) (I67.82) Inguinal hernia (550.90) (K40.90) Atherosclerosis (440.9) (I70.90) Tinnitus (388.30) (H93.19) Headache (784.0) (R51) Allergies and Adverse Reactions Allopurinol TABS (Allergy) Medications Coumadin 5 MG Oral Tablet; TAKE 1 TABLET EVERY DAY Refills: 0 Furosemide 20 MG Oral Tablet; Take 1 tablet daily Start: 05-Jul-2012 Quantity: 90 Refills: 3 Maalox CHEW; prn Refills: 0 Losartan Potassium 100 MG Oral Tablet; TAKE 1 TABLET DAILY. 30 Tablet Bottle Refills: 0 Vitamin B12 TABS; TAKE 1 TABLET DAILY DIRECTED. Refills: 0 Verapamil HCl - 120 MG Oral Tablet; Take 1 tablet twice libby y Refills: 0 Klor-Con 10 10 MEQ Oral Tablet Extended Release; TAKE 1 TABL ET DAILY. Refills: 0 Procedures History of Mitral Valve Replacement Stat us: Completed History of Hernia Repair Status: Complet ed Immunizations Immunizations not documented Family History Unknown Family Member Family history of Cancer Status: Active Comments: Famil y History Family history of Diabetes Mellitus (V18.0) Status: Active Comments: Family History Father Family history of Acute Myocardial Infarction (V17.3) Status : Active Mother Family history of Acute Myocardial Infarction (V17.3) Status : Active Social History - Smoking Status Never smoker Plan of Treatment Planned Observations Planned Goals not documented Results No Known Results Results not documented Encounters Appointment; Radha Del Castillo PA-C 06-Feb-2017 10:00 Encounter Diagnosis: Problem not documented
[2018-07-23 08:58] LABS: Basophils # (auto) 0.01 K/uL (0-0.2); Basophils % (auto) 0.1 %; Eosinophils # (auto) 0.06 K/uL (0-0.5); Eosinophils % (auto) 0.8 %; Hematocrit (blood only) 36.1 % (42-52); Hemoglobin 12.1 g/dL (14.0-18.0); Immature Granulocytes # (auto) 0.01 K/uL (0.00-0.02); Immature Granulocytes % (auto) 0.1 %; Lymphocytes # (auto) 0.58 K/uL (1.2-3.4); Lymphocytes % (auto) 8.2 %; Mean Corpuscular Hgb Conc 33.5 g/dL (32-36); Mean Corpuscular Volume 92.6 fL (80-100); Mean Platelet Volume 9.7 fL (7.4-10.4); Monocytes # (auto) 0.68 K/uL (0.11-0.59); Monocytes % (auto) 9.6 %; Neutrophils # (auto) 5.73 K/uL (1.4-6.5); Neutrophils % (auto) 81.2 %; Platelet Count 131 K/uL (130-400); RDW Coefficient of Variation 13.8 % (11.5-14.5); RDW Standard Deviation 46.6 fL (36.4-46.3); White Blood Count 7.07 K/uL (4.8-10.8)
[2018-07-23 09:18] LABS: Alanine Aminotransferase 16 U/L (12-78); Albumin Level 3.7 gm/dl (3.4-5.0); Aspartate Aminotransferase 14 U/L (15-37); BUN Creatinine Ratio 18.7 (10-20); Blood Urea Nitrogen 21 mg/dl (7-18); Calcium 8.8 mg/dl (8.5-10.1); Carbon Dioxide 29 mmol/L (21-32); Chloride 109 mmol/L (98-107); Creatinine Clr Calc Pharmacy 69.2 ml/min; Est GFR (African American) 73.6; Est GFR (Non-African American) 63.5; Glucose 138 mg/dl (70-99); Magnesium 2.4 mg/dl (1.8-2.4); Sodium 144 mmol/L (136-145)
[2018-07-23 09:19] LABS: Partial Thromboplastin Ratio 1.5; Partial Thromboplastin Time 40.4 Seconds (21.0-31.0); Prothrombin Time 41.9 Seconds (9.0-12.0)
[2018-07-23 09:23] LABS: Albumin Globulin Ratio 1.2 (0.9-2); Alkaline Phosphatase 96 U/L (45-117); Globulin 3.2 gm/dl (2.5-4.0); Total Protein 6.9 gm/dl (6.4-8.2); Troponin I < 0.015 ng/ml (0-0.045)
[2018-07-23] MEDS ORDERED: ATROPINE SULFATE 0.1 MG/ML 10ML SYR IV STA (09:27)
[2018-07-23 09:30] LABS: INR 4.6 (0.9-1.1)
[2018-07-23] MEDS ORDERED: IOVERSOL 100ml IV PRN (09:56)
--- NOTE | 2018-07-23 10:03 | CT Scan Report ---
CT head/brain wo con CT DOSE: HISTORY: Mental status change Stroke evaluation TECHNIQUE: Multiaxial CT images of the head were performed without the use of intravenous contrast. A dose lowering technique was utilized adhering to the principles of ALARA. Comparison: 10/20/2016 Findings: The paranasal sinuses and mastoid air cells are clear. Old right occipital infarct. Subacut e to old infarct left anterior occipital lobe. Moderate chronic small vessel change. Several old basal ganglia infarcts. Several old cerebellar infa rcts bilaterally. Impression: 1. No acute intracranial abnormality. 2. 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 3. Subacute to old left anterior left occipital infarct. The above report was generated using voice recognition software. It may contain grammatical, syntax or spelling errors. Electronically signed by: Riky France M.D. 07/23/2018 10:01 AM
--- NOTE | 2018-07-23 10:07 | CT Scan Report ---
Study: CT soft tissue neck. HISTORY: Carcinoma. Dysphagia. FINDINGS: Difficult scan to interpret due to complete absence of prior studies as well as significant history. This study should be compared to prior examinations. Moderate soft tissue prominence of the glottic and subglottic region. The epiglottis specifically is unremarkable. Mild soft tissue fullness at the base of the left uvula. Minimal infiltrative change of the soft tissue regions bilaterally possibly secondary to prior radiat ion treatment. Pulmonary apical fibrotic change bilaterally. Prior median sternotomy. IMPRESSION: 1. Difficult study to interpret due to the absence of prior examinations. 2. Prominence of the soft tissues base of the left uvula 3. soft tissue prominence of the glottic and subglottic region. 4.. Direct Visualization is recommended to exclude any possibility of recurrent neoplasm. Electronically signed by: Riky France M.D. 07/23/2018 10:05 AM
[2018-07-23] MEDS ORDERED: DEXAMETHASONE **PF** INJ 10 MG/ML VIAL IV ONE (10:21)
--- NOTE | 2018-07-23 12:04 | Emergency Department Note ---
Entered by Peggy Galvez acting as a scribe for Matteo Chambers MD History of Present Illness General Chief complaint: GI Assessment Stated complaint: DIFFICULTY SWALLOWING, COMES OUT NOSE Time Seen by Provider: 07/23/18 08:15 Source: patient Mode of arrival: ambulatory Limitations: no limitations History of Present Illness Onset (ago): month(s) 6 Location: mouth Radiation: non-radiation Pain Consistency: + other (worsening) Relieved By: + none Exacerbated By: + eating Associated symptoms: no nausea/vomiting Treatments prior to arrival: none The patient is a 78 year old male who presents to the ED with complaints of difficulty swallowing. He states "it seems like I have to gulp to get anything down". He states his symptoms are now worsening and the issue is affecting his speech. 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 He was treated with radiation at the time. He denies any vomiting. Home Medications Home Medications Medication Instructions Recorded Confirmed Type furosemide 40 mg PO HS PRN 07/23/18 07/23/18 History losartan 100 mg PO DAILY 07/23/18 07/23/18 History multivitamin 1 tab PO DAILY 07/23/18 07/23/18 History potassium chloride 20 meq PO DAILY PRN 07/23/18 07/23/18 History sennosides-docusate sodium 2 tab PO HS PRN 07/23/18 07/23/18 History [Senna-S] verapamil 120 mg PO BID 07/23/18 07/23/18 History warfarin 5 mg PO DAILY 07/23/18 07/23/18 History Allergies Allergy/AdvReac Type Severity Reaction Status Date / Time allopurinol AdvReac Mild COUGH Verified 07/23/18 08:38 lisinopril AdvReac Mild COUGH Verified 07/23/18 08:38 Past Med/Surg History Medical History History of oral cancer Social History Preferred Language: Sami Communication Ability: Effective Education Program Specialist Required: No Beliefs That Will Affect Care: None Current Living Situation: Spouse and Family Other Information That Helps Us Care for You: No Feels Safe at Home: Yes Safety Concerns: Feels Safe At This Time Smoking Status: Never smoker Do You Dip or Chew Tobacco: No Second Hand Exposure: No Tobacco Cessation Education Requested by Patient: No Hx Alcohol Use: No Hx Substance Use: No Review of Systems See HPI for pertinent positives & negatives. and A total of 10 systems reviewed and were otherwise negative Physical Exam Vital Signs Vital Signs - 24 hr 07/23/18 08:04 07/23/18 08:35 07/23/18 09:00 Temperature 36.9 C Temperature Source Oral Sepsis Recent Fever Within 48 Hours No Sepsis New/Unexplained Change in Mental Status No Sepsis Action Taken by Nursing No Action Required Pulse Rate 56 L 50 L 50 L Pulse Rate [Apical] Pulse Rate from SpO2 Sensor Pulse Rhythm [Apical] Respiratory Rate 18 15 24 Respiratory Effort / Characteristics Respiratory Depth Respiratory Pattern Blood Pressure 167/73 H Blood Pressure [Left Arm] Blood Pressure Mean 104 Blood Pressure Mean [Left Arm] Pulse Oximetry 93 Oxygen Delivery Method Room Air 07/23/18 09:30 07/23/18 09:31 07/23/18 09:33 Temperature Temperature Source Sepsis Recent Fever Within 48 Hours Sepsis New/Unexplained Change in Mental Status Sepsis Action Taken by Nursing Pulse Rate 45 L 44 L Pulse Rate [Apical] 42 L Pulse Rate from SpO2 Sensor 44 L Pulse Rhythm [Apical] Regular Respiratory Rate 10 L 22 19 Respiratory Effort / Characteristics Non-Labored Respiratory Depth Normal Respiratory Pattern Blood Pressure 145/67 H Blood Pressure [Left Arm] 145/67 H Blood Pressure Mean 93 Blood Pressure Mean [Left Arm] 93 Pulse Oximetry 97 95 Oxygen Delivery Method Room Air 07/23/18 10:00 07/23/18 10:30 07/23/18 10:46 Temperature Temperature Source Sepsis Recent Fever Within 48 Hours Sepsis New/Unexplained Change in Mental Status Sepsis Action Taken by Nursing Pulse Rate 53 L 64 58 L Pulse Rate [Apical] Pulse Rate from SpO2 Sensor 58 L Pulse Rhythm [Apical] Respiratory Rate 15 17 18 Respiratory Effort / Characteristics Respiratory Depth Respiratory Pattern Blood Pressure 194/96 H Blood Pressure [Left Arm] Blood Pressure Mean 128 Blood Pressure Mean [Left Arm] Pulse Oximetry 95 Oxygen Delivery Method 07/23/18 11:00 07/23/18 11:01 07/23/18 11:28 Temperature Temperature Source Sepsis Recent Fever Within 48 Hours Sepsis New/Unexplained Change in Mental Status Sepsis Action Taken by Nursing Pulse Rate 62 54 L Pulse Rate [Apical] 59 L Pulse Rate from SpO2 Sensor 61 52 L Pulse Rhythm [Apical] Respiratory Rate 19 22 Respiratory Effort / Characteristics Non-Labored Spontaneous Respiratory Depth Normal Respiratory Pattern Regular Blood Pressure 182/87 H Blood Pressure [Left Arm] 182/87 H Blood Pressure Mean 118 Blood Pressure Mean [Left Arm] 118 Pulse Oximetry 95 94 Oxygen Delivery Method Room Air Room Air 07/23/18 11:30 Temperature Temperature Source Sepsis Recent Fever Within 48 Hours Sepsis New/Unexplained Change in Mental Status Sepsis Action Taken by Nursing Pulse Rate 64 Pulse Rate [Apical] Pulse Rate from SpO2 Sensor 64 Pulse Rhythm [Apical] Respiratory Rate 20 Respiratory Effort / Characteristics Respiratory Depth Respiratory Pattern Blood Pressure Blood Pressure [Left Arm] Blood Pressure Mean Blood Pressure Mean [Left Arm] Pulse Oximetry 93 Oxygen Delivery Method GENERAL: Awake, alert, well-appearing, in no acute distress HENT: Normocephalic, atraumatic. Oropharynx unremarkable. EYES: Normal conjunctiva. Sclera non-icteric. NECK: Supple. No nuchal rigidity. FROM. No JVD. RESPIRATORY: Clear to auscultation. CARDIAC: Regular rate, normal rhythm. Extremities warm and well perfused. Pulses equal. ABDOMEN: Soft, non-distended. No tenderness to palpation. No rebound or guarding. No masses. RECTAL: Deferred. MUSCULOSKELETAL: Chest examination reveals no tenderness. The back is symmetrical on inspection without obvious abnormality. There is no CVA tenderness to palpation. No joint edema. LOWER EXTREMITIES: Calves are equal size bilaterally and non-tender. No edema. No discoloration. NEURO: Normal sensorium. No sensory or motor deficits noted. SKIN: No rash or jaundice noted. Course 0822: The patient was evaluated in room A11B and a complete history and physical were performed. 1145: I discussed the patients case with Dr. Napoles, [place] [facility]. The patient will be further evaluated. 1050: I reevaluated the patient. He is resting comfortably. I discussed his results and my recommendation he remain in the hospital for further evaluation and management and he verbalized complete understanding and agreement. Administered Medications Ioversol (Optiray 320 100ml) 95 ml IV ONCE PRN PRN Reason: Interaction Checking Stop: 07/27/18 09:55 Last Admin: 07/23/18 09:57 Dose: 95 ml Documented by: [id number] Discontinued Medications Atropine Sulfate (Atropine Sulfate) 0.5 mg IV NOW STA Stop: 07/23/18 09:28 Last Admin: 07/23/18 09:32 Dose: 0.5 mg Documented by: [id number] Dexamethasone Sodium Phosphate (Decadron Pf) 10 mg IV NOW ONE Stop: 07/23/18 10:22 Last Admin: 07/23/18 11:02 Dose: 10 mg Documented by: [id number] Medical Decision Making Differential Diagnosis Differential diagnoses includes but is not limited to gastritis, peptic ulcer di sease, GERD, gallbladder disease, pancreatitis, small bowel obstruction, acute coronary syndrome, pericarditis, ischemic bowel, irritable bowel disease, irritable bowel syndrome, appendicitis, diverticulitis, malignancy, hernia, urinary tract infection, torsion, perforation, trauma, infectious. NIH stroke scale is 1. Medical Records Attestation: I reviewed the patient's medical records. Home Medications Current Medication List: was personally reviewed by me Laboratory Data Attestation: I reviewed the patient's lab results. Result diagrams: 07/23/18 08:49 07/23/18 08:49 Lab Results 07/23/18 07/23/18 07/23/18 Range/Units 08:49 08:49 08:49 WBC 7.07 (4.8-10.8) K/uL RBC 3.90 L (4.7-6.1) M/uL Hgb 12.1 L (14.0-18.0) g/dL Hct 36.1 L (42-52) % MCV 92.6 (80-100) fL MCH 31.0 (25-34) pg MCHC 33.5 (32-36) g/dL RDW Std Deviation 46.6 H (36.4-46.3) fL RDW Coeff of Maxine 13.8 (11.5-14.5) % Plt Count 131 (130-400) K/uL MPV 9.7 (7.4-10.4) fL Immature Gran % (Auto) 0.1 % Neut % (Auto) 81.2 % Lymph % (Auto) 8.2 % [place] % (Auto) 9.6 % Eos % (Auto) 0.8 % Baso % (Auto) 0.1 % Immature Gran # (Auto) 0.01 (0.00-0.02) K/uL Neut # (Auto) 5.73 (1.4-6.5) K/uL Lymph # (Auto) 0.58 L (1.2-3.4) K/uL [place] # (Auto) 0.68 H (0.11-0.59) K/uL Eos # (Auto) 0.06 (0-0.5) K/uL Baso # (Auto) 0.01 (0-0.2) K/uL PT 41.9 H (9.0-12.0) Seconds INR 4.6 H (0.9-1.1) APTT 40.4 H (21.0-31.0) Seconds PTT Ratio 1.5 Sodium 144 (136-145) mmol/L Potassium 4.0 (3.5-5.1) mmol/L Chloride 109 H (98-107) mmol/L Carbon Dioxide 29 (21-32) mmol/L Anion Gap 6.0 (3-11) BUN 21 H (7-18) mg/dl Creatinine 1.10 (0.6-1.4) mg/dl Est Cr Clr Drug Dosing 69.2 ml/min Est GFR ( Amer) 73.6 Est GFR (Non-Af Amer) 63.5 BUN/Creatinine Ratio 18.7 (10-20) Glucose 138 H (70-99) mg/dl POC Glucose (70-99) Calcium 8.8 (8.5-10.1) mg/dl Magnesium 2.4 (1.8-2.4) mg/dl Total Bilirubin 1.0 (0.2-1) mg/dl AST 14 L (15-37) U/L ALT 16 (12-78) U/L Alkaline Phosphatase 96 (45-117) U/L Troponin I < 0.015 (0-0.045) ng/ml Total Protein 6.9 (6.4-8.2) gm/dl Albumin 3.7 (3.4-5.0) gm/dl Globulin 3.2 (2.5-4.0) gm/dl Albumin/Globulin Ratio 1.2 (0.9-2) 07/23/18 Range/Units 08:55 WBC (4.8-10.8) K/uL RBC (4.7-6.1) M/uL Hgb (14.0-18.0) g/dL Hct (42-52) % MCV (80-100) fL MCH (25-34) pg MCHC (32-36) g/dL RDW Std Deviation (36.4-46.3) fL RDW Coeff of Maxine (11.5-14.5) % Plt Count (130-400) K/uL MPV (7.4-10.4) fL Immature Gran % (Auto) % Neut % (Auto) % Lymph % (Auto) % [place] % (Auto) % Eos % (Auto) % Baso % (Auto) % Immature Gran # (Auto) (0.00-0.02) K/uL Neut # (Auto) (1.4-6.5) K/uL Lymph # (Auto) (1.2-3.4) K/uL [place] # (Auto) (0.11-0.59) K/uL Eos # (Auto) (0-0.5) K/uL Baso # (Auto) (0-0.2) K/uL PT (9.0-12.0) Seconds INR (0.9-1.1) APTT (21.0-31.0) Seconds PTT Ratio Sodium (136-145) mmol/L Potassium (3.5-5.1) mmol/L Chloride (98-107) mmol/L Carbon Dioxide (21-32) mmol/L Anion Gap (3-11) BUN (7-18) mg/dl Creatinine (0.6-1.4) mg/dl Est Cr Clr Drug Dosing ml/min Est GFR ( Amer) Est GFR (Non-Af Amer) BUN/Creatinine Ratio (10-20) Glucose (70-99) mg/dl POC Glucose 132 H (70-99) Calcium (8.5-10.1) mg/dl Magnesium (1.8-2.4) mg/dl Total Bilirubin (0.2-1) mg/dl AST (15-37) U/L ALT (12-78) U/L Alkaline Phosphatase (45-117) U/L Troponin I (0-0.045) ng/ml Total Protein (6.4-8.2) gm/dl Albumin (3.4-5.0) gm/dl Globulin (2.5-4.0) gm/dl Albumin/Globulin Ratio (0.9-2) Imaging Data Radiologist's Impression: Radiology results as stated below per my review and the radiologist's interpretation: CT head/brain wo con CT DOSE: HISTORY: Mental status change Stroke evaluation TECHNIQUE: Multiaxial CT images of the head were performed without the use of intravenous contrast. A dose lowering technique was utilized adhering to the principles of ALARA. Comparison: 10/20/2016 Findings: The paranasal sinuses and mastoid air cells are clear. Old right occipital infarct. Subacute to old infarct left anterior occipital lobe. Moderate chronic small vessel change. Several old basal ganglia infarcts. Several old cerebellar infarcts bilaterally. Impression: 1. No acute intracranial abnormality. 2. 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 3. Subacute to old left anterior left occipital infarct. The above report was generated using voice recognition software. It may contain grammatical, syntax or spelling errors. Electronically signed by: Riky France M.D. 07/23/2018 10:01 AM Study: CT soft tissue neck. HISTORY: Carcinoma. Dysphagia. FINDINGS: Difficult scan to interpret due to complete absence of prior studies as well as significant history. This study should be compared to prior examinations. Moderate soft tissue prominence of the glottic and subglottic region. The epiglottis specifically is unremarkable. Mild soft tissue fullness at the base of the left uvula. Minimal infiltrative change of the soft tissue regions bilaterally possibly secondary to prior radiation treatment. Pulmonary apical fibrotic change bilaterally. Prior median sternotomy. IMPRESSION: 1. Difficult study to interpret due to the absence of prior examinations. 2. Prominence of the soft tissues base of the left uvula 3. soft tissue prominence of the glottic and subglottic region. 4.. Direct Visualization is recommended to exclude any possibility of recurrent neoplasm. Electronically signed by: Riky France M.D. 07/23/2018 10:05 AM ECG Data Attestation: I personally reviewed and interpreted this ECG as follows: Indication: other (Difficulty swallowing) Rate (beats per minute): 72 Rhythm: junctional Findings: no ST depression and no ST elevation Blood Pressure Blood Pressure Findings: Elevated blood pressure Blood Pressure Disposition: further management by hospitalist RAMU Weinstein This is a 78-year-old male who presents emergency department complaining of difficulty swallowing. The patient also has a history of mouth cancer. He is concerned that this may be the whole issue. Based on the patient's complaint he was sent for a CAT scan of the head which was concerning for multiple strokes. The patient is on warfarin and is anticoagulated. In addition the patient also has a large amount of edema in his throat I suspect may be neoplasm in nature. For this reason the patient was given 10 mg of Decadron. He was also found to be bradycardic upon arrival to the emergency department. To ensure that his complaint was not caused by his heart he was given atropine. Repeat examination revealed improvement the patient's heart rate however he is still having the complaints. Based on all of this I did discuss the case with the hospitalist service who agreed to admit the patient. Patient and family were in agreement with the treatment plan. Impression & Plan Difficulty swallowing, Bradycardia, CVA (cerebral vascular accident), Throat mass Discharge Plan Visit Data Chief Complaint: GI Assessment Stated Complaint: DIFFICULTY SWALLOWING, COMES OUT NOSE ED Provider: Matteo Chambers Discharge Problem: Difficulty swallowing, Bradycardia, CVA (cerebral vascular accident), Throat mass Patient Disposition: Being Evaluated by Hospitalist Forms Stand Alone Forms: My [facility] Prescriptions Prescriptions: No Action multivitamin Tablet 1 tab PO DAILY RF: 0 sennosides-docusate sodium [Senna-S] 8.6-50 mg Tablet 2 tab PO HS PRN (Reason: Constipation) RF: 0 verapamil 120 mg Tablet 120 mg PO BID RF: 0 warfarin 5 mg Tablet 5 mg PO DAILY RF: 0 furosemide 20 mg Tablet 40 mg PO HS PRN (Reason: Fluid Retention) RF: 0 losartan 100 mg Tablet 100 mg PO DAILY RF: 0 potassium chloride 20 mEq Tablet Extended Release 20 meq PO DAILY PRN (Reason: Weight Gain) RF: 0 Referrals Referrals: Cosme Medellin PA-C [Primary Care Provider] - The scribe's documentation has been prepared under my direction and personally reviewed by me in its entirety. I confirm that the note above accurately reflects all work, treatment, procedures, and medical decision making performed by me.
[2018-07-23] MEDS ORDERED: FUROSEMIDE 20 MG TAB PO PRN (12:53)
[2018-07-23] MEDS ORDERED: NITROGLYCERIN SL 0.4 MG/TAB TAB SL PRN (12:53)
[2018-07-23] MEDS ORDERED: ENALAPRILAT 1.25 MG in DEXTROSE 5% 25 ML IV PRN (12:53)
[2018-07-23] MEDS ORDERED: PHARMACIST DISCHARGE MED REC CONSULT PRN (12:53)
[2018-07-23] MEDS ORDERED: DOCUSATE SODIUM/SENNA 50/8.6MG TAB PO PRN (12:53)
[2018-07-23] MEDS ORDERED: ACETAMINOPHEN 325 MG TAB PO PRN (12:53)
[2018-07-23] MEDS ORDERED: POLYETHYLENE (MIRALAX) 17 GM PACK PO PRN (12:53)
[2018-07-23] MEDS ORDERED: ONDANSETRON INJ 2 MG/ML 2 ML VIAL IV PRN (12:53)
[2018-07-23] MEDS: SODIUM CHLORIDE 0.9% 1000ML 1,000 ML IV SCH (13:00)
[2018-07-23] MEDS ORDERED: PERFLUTREN LIPID MICROSPHERE (DEFINITY) IV ONE (13:59)
[2018-07-23] MEDS ORDERED: HydrALAZINE HCL 20 MG/ML VIAL IV STA (14:14)
--- NOTE | 2018-07-23 14:56 | Cardiology Consultation ---
Date of Consultation July 23, 2018 Assessment & Plan (1) Bradycardia: Patient is asymptomatic. Verapamil will be placed on hold. Will likely require reduction of dosing during hospitalization. Continue telemetry monitoring. (2) HTN (hypertension): Markedly elevated blood pressure since admission. Add 1 inch topical nitrates now. Continue as needed enalaprilat. Consider addition of IV hydralazine pending clinical response. Continue outpatient medications as tolerated. (3) Chronic atrial fibrillation: Slow ventricular response noted. Verapamil on hold. Warfarin will also be placed on hold in anticipation of possible endoscopic procedures. Hemoglobin is stable. No signs of GI/ blood loss. Patient will require bridging therapy when INR falls below 2.5. (4) H/O mitral valve replacement with mechanical valve: Normal function per repeat resting 2D transthoracic echocardiogram and adequately anticoagulated with Coumadin. History of Present Illness Reason for Consultation: Bradycardia, atrial fibrillation, history of mechanical mitral valve replacement Requesting Physician: Dr. Napoles Attending Physician: Jefe Chirinos MD History of Present Illness 78-year-old male presented emergency department with difficulty swallowing. He is well-known to Dr. Adryan Milan of our cardiology practice. Report progressive difficulty swallowing food, pills, and liquid over the past 3 months. Prior history of radiation treatments to the neck secondary to esophageal carcinoma. Denies hemoptysis, hematemesis, or coffee-ground emesis. No recent weight loss. Denies chest pain or unusual shortness of breath. No palpitations, lightheaded, dizziness, syncope, nursing B, orthopnea, PND, or claudication. Initial ECG demonstrates atrial fibrillation with junctional escape rhythm at a rate of approximately 48 bpm. Currently telemetry demonstrating atrial fibrillation at a rate of 65 to 75 bpm. Verapamil has been placed on hold. No signs/symptoms GI/ blood loss. Markedly hypertensive since admission. INR supratherapeutic at 4.6. Complex [facility]: 1. 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 2. History of past atrial arrhythmias now in chronic atrial fibrillation with rate control. 3. Labile hypertension. 4. 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 5. History of acute lower GI bleed in December of 2015. 6. 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 Allergies Allergy/AdvReac Type Severity Reaction Status Date / Time allopurinol AdvReac Mild COUGH Verified 07/23/18 08:38 lisinopril AdvReac Mild COUGH Verified 07/23/18 08:38 Home Medications Home Medications Medication Instructions Recorded Confirmed Type furosemide 40 mg PO HS PRN 07/23/18 07/23/18 History losartan 100 mg PO DAILY 07/23/18 07/23/18 History multivitamin 1 tab PO DAILY 07/23/18 07/23/18 History potassium chloride 20 meq PO DAILY PRN 07/23/18 07/23/18 History sennosides-docusate sodium 2 tab PO HS PRN 07/23/18 07/23/18 History [Senna-S] verapamil 120 mg PO BID 07/23/18 07/23/18 History warfarin 5 mg PO DAILY 07/23/18 07/23/18 History Patient History Medical History History of oral cancer Social History Preferred Language: Divehi Communication Ability: Effective Broadband Engineer Required: No Beliefs That Will Affect Care: None Current Living Situation: Spouse and Family Other Information That Helps Us Care for You: No Feels Safe at Home: Yes Safety Concerns: Feels Safe At This Time Smoking Status: Never smoker Do You Dip or Chew Tobacco: No Second Hand Exposure: No Tobacco Cessation Education Requested by Patient: No Hx Alcohol Use: No Hx Substance Use: No Review of Systems Review of Systems: All systems reviewed & are unremarkable except as noted in HPI & below Physical Exam Physical Exam: General: NAD, AAO x3, well nourished. HEENT: Normocephalic. Atraumatic. Conjunctiva pink, no scleral icterus. Neck: No carotid bruits, the carotid upstrokes are brisk. No JVD. No HJR Heart: Irregular rhythm, there is a 1/6 systolic ejection murmur heard best at the right second intercostal space. [place] mechanical valve sound noted. no diastolic murmur appreciated. PMI is not displaced. No RV heave. Lungs: Clear bilateral without rales , rhonchi, or wheeze. Abdomen: Normal bowel sounds. Soft. Nontender. No masses or organomegaly. No abdominal bruits. Extremities: No clubbing, cyanosis, or edema. Pulses: radial=2/4,posterior tibial=2/4. Neuro: Cranial nerves grossly intact. No focal motor deficit. Results & Data Vital Signs (Past 12 Hours) Vital Signs Temp Pulse Pulse Resp BP BP Pulse Ox 07/23/18 13:42 07/23/18 12:45 36.9 C 79 16 233/107 H 96 07/23/18 12:21 67 18 204/105 H 94 07/23/18 11:30 64 20 93 07/23/18 11:01 54 L 22 182/87 H 94 07/23/18 11:00 62 59 L 19 182/87 H 95 07/23/18 10:46 58 L 18 194/96 H 95 07/23/18 10:30 64 17 07/23/18 10:00 53 L 15 07/23/18 09:33 42 L 19 145/67 H 95 07/23/18 09:31 44 L 22 145/67 H 97 07/23/18 09:30 45 L 10 L 07/23/18 09:00 50 L 24 07/23/18 08:35 50 L 15 07/23/18 08:04 36.9 C 56 L 18 167/73 H 93 Pulse Ox 07/23/18 13:42 96 07/23/18 12:45 07/23/18 12:21 07/23/18 11:30 07/23/18 11:01 07/23/18 11:00 07/23/18 10:46 07/23/18 10:30 07/23/18 10:00 07/23/18 09:33 07/23/18 09:31 07/23/18 09:30 07/23/18 09:00 07/23/18 08:35 07/23/18 08:04 Laboratory Results Laboratory Results - last 24 hr 07/23/18 07/23/18 07/23/18 08:49 08:49 08:49 WBC 7.07 RBC 3.90 L Hgb 12.1 L Hct 36.1 L MCV 92.6 MCH 31.0 MCHC 33.5 RDW Std Deviation 46.6 H RDW Coeff of Maxine 13.8 Plt Count 131 MPV 9.7 Immature Gran % (Auto) 0.1 Neut % (Auto) 81.2 Lymph % (Auto) 8.2 Nobles % (Auto) 9.6 Eos % (Auto) 0.8 Baso % (Auto) 0.1 Immature Gran # (Auto) 0.01 Neut # (Auto) 5.73 Lymph # (Auto) 0.58 L Nobles # (Auto) 0.68 H Eos # (Auto) 0.06 Baso # (Auto) 0.01 PT 41.9 H INR 4.6 H APTT 40.4 H PTT Ratio 1.5 Sodium 144 Potassium 4.0 Chloride 109 H Carbon Dioxide 29 Anion Gap 6.0 BUN 21 H Creatinine 1.10 Est Cr Clr Drug Dosing 69.2 Est GFR ( Amer) 73.6 Est GFR (Non-Af Amer) 63.5 BUN/Creatinine Ratio 18.7 Glucose 138 H POC Glucose Calcium 8.8 Magnesium 2.4 Total Bilirubin 1.0 AST 14 L ALT 16 Alkaline Phosphatase 96 Troponin I < 0.015 Total Protein 6.9 Albumin 3.7 Globulin 3.2 Albumin/Globulin Ratio 1.2 07/23/18 07/23/18 08:55 13:03 WBC RBC Hgb Hct MCV MCH MCHC RDW Std Deviation RDW Coeff of Maxine Plt Count MPV Immature Gran % (Auto) Neut % (Auto) Lymph % (Auto) Nobles % (Auto) Eos % (Auto) Baso % (Auto) Immature Gran # (Auto) Neut # (Auto) Lymph # (Auto) Nobles # (Auto) Eos # (Auto) Baso # (Auto) PT INR APTT PTT Ratio Sodium Potassium Chloride Carbon Dioxide Anion Gap BUN Creatinine Est Cr Clr Drug Dosing Est GFR ( Amer) Est GFR (Non-Af Amer) BUN/Creatinine Ratio Glucose POC Glucose 132 H Calcium Magnesium Total Bilirubin AST ALT Alkaline Phosphatase Troponin I < 0.015 Total Protein Albumin Globulin Albumin/Globulin Ratio (1) HTN (hypertension) Hypertension type: essential hypertension Qualified Code(s): I10 - Essential (primary) hypertension
[2018-07-23] MEDS ORDERED: NITROGLYCERIN 2% OINTMENT 30GM TUBE EXT SCH (15:00)
[2018-07-23] MEDS: LOSARTAN POTASSIUM 50 MG TAB PO SCH (15:32)
[2018-07-23] MEDS ORDERED: LORazepam 0.5 MG/1 ML VIAL IV STA (15:32)
--- NOTE | 2018-07-23 15:36 | Ultrasound Report ---
US carotid doppler BI HISTORY: St cva COMPARISON: None. TECHNIQUE: Real-time, grayscale, and color Doppler sonography of the carotid arteries was performed. Imaging reviewed in the transverse and longitudinal planes. All measurements were calculated based on NASCET criteria. FINDINGS: Antegrade flow is seen in the bilateral vertebral arteries. The brachial pressures are hemodynamically similar. Moderate plaque dimension bilaterally The peak systolic velocity within the right ICA is 92. The right systolic ratio is 0.9 The peak systolic velocity within the left ICA is 150. The left systolic ratio is 1.9. IMPRESSION: 30-40% narrowing left internal carotid artery at its origin. Moderate plaque formation bilaterally. N o high-grade stenosis. The above report was generated using voice recognition software. It may contain grammatical, syntax or spelling errors. Electronically signed by: Riky France M.D. 07/23/2018 3:34 PM
--- NOTE | 2018-07-23 16:44 | History and Physical Report ---
DATE OF ADMISSION: 07/23/2018 CHIEF COMPLAINT: Ongoing dysphagia. 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 The patient is having the symptoms for last 6 months but worse over the last 6 weeks. Some of the big pills he is not able to swallow, sometimes the liquid is coming out from his nose. Currently, he is only drinking hot chocolate and some liquid diet. Because of his ongoing symptoms, he came to the ER. In the ER, he was found to have bradycardic heart rate in the 40s. In the ER, the patient was given atropine, and heart rate came to the 50s and 60s. CAT scan of the head shows previous strokes and also possible subacute to old left anterior, left occipital infarct. Also, the patient's soft tissue neck CT was done showing difficult to interpret, but prominence of soft tissue base of the left uvula, soft tissue prominence of glottic and subglottic region. Direct visualization is recommended to explain the possibility of recurrent neoplasm. Currently resting comfortably and hemodynamically stable with blood pressure somewhat running on the higher side. He denies any headache. No blurred vision, no earache, no runny nose, no sore throat. No cough, no fever, no chills, no chest pain, no shortness of breath. No nausea, no vomiting, no abdominal pain. Normal bowel and bladder movements. No blood in the stools, no hematuria, no burning micturition. He says he takes Lasix on the weekends for swelling in the legs. No rash. Bruises easily because he is on Coumadin. Lives with his and grandkids. Ambulates without any help. ALLERGIES: ALLOPURINOL, LISINOPRIL. PAST MEDICAL HISTORY: As mentioned above. PAST SURGICAL HISTORY: History of mitral valve replacement with mechanical valve, history of dental surgeries, history of endocrine surgeries, status post cholecystectomy, status post ERCP, laparoscopic left inguinal hernia repair, radiation to mouth and tongue. MEDICATIONS: The patient is on Lasix 40 mg on the weekends, potassium supplement when taking Lasix, multivitamin daily, losartan 100 mg daily, Senokot-S 2 tablets p.o. at bedtime p.r.n., verapamil 120 mg p.o. b.i.d., Coumadin 5 mg p.o. daily. FAMILY HISTORY: Significant for mother had cancer of the skin of the face. Sister has diabetes, another sister has anxiety. SOCIAL HISTORY: and lives with his . No smoking, no alcohol, no drug use. REVIEW OF SYMPTOMS: As per HPI. Rest of review of systems is negative. PHYSICAL EXAMINATION: GENERAL: The patient is of moderate build, not in acute distress. VITAL SIGNS: Temperature 36.9, pulse was 42, right now it is 64, respiratory rate 20, blood pressure 182/87, oxygen 93% on room air. HEENT: No pallor, no icterus. Pupils equal, round, reactive to light. NECK: No JVD, no neck masses, no carotid bruit. CARDIOVASCULAR: S1, S2 heard, regular rate and rhythm, no murmur, no gallop. RESPIRATORY SYSTEM: Normal AP diameter. No accessory muscle use. No wheezing, no crackles. ABDOMEN: Soft, bowel sounds present. Nontender. No distention. CENTRAL NERVOUS SYSTEM: Cranial nerves II-XII grossly intact. Nonfocal. EXTREMITIES: No edema, no erythema. ORAL MUCOSA: No obvious lesions seen in the pharynx uvula region. LABORATORY DATA: WBC 7, hemoglobin 12.1, hematocrit 36.1, platelets 131. PT 41.9, INR 4.6, aPTT 40.4. Sodium 144, potassium 4, chloride 109, CO2 of 29, BUN 21, creatinine 1.1, serum glucose 132, calcium 8.8, magnesium 2.42. Total bilirubin 1, AST 14, ALT 16, alkaline phosphatase is 96. Troponin I less than 0.015. DIAGNOSTIC STUDIES: Soft tissue of the neck: Difficult study to interpret. Prominence of soft tissue base of the left uvula. Soft tissue prominence of the glottic and subglottic region. Direct visualization is recommended to exclude any possibility of recurrent neoplasm. CT of the head: No acute intracranial abnormality, multiple old right occipital, periventricular, and cerebellar infarct. Subacute to old left anterior, left occipital infarct. EKG showing junctional rhythm with a rate of 48. ASSESSMENT AND PLAN: This is a 78-year-old male who presents with ongoing dysphagia. 1. Dysphagia for the last 6 months but worse in the last 6 weeks. Currently, he is only eating a liquid diet. Soft tissue neck shows could not rule out any recurrent neoplasm. History of right tonsillar and right tongue cancer, status post chemoradiation about 10 years ago. We will keep him n.p.o. for now. IV fluids. Home pills to be given, crushed if possible. Consult GI for possible EGD. We will monitor on tele floor. The patient has received a dose of Decadron in the ER. We will also consider ENT evaluation, was followed with ENT in [place]. 2. Bradycardia. The patient has history of atrial fibrillation, came with junctional rhythm, was given atropine, currently heart rate has improved to 60s. We will hold verapamil. We will possibly restart back at lower dose if heart rates goes up. Consult cardiology for further recommendations and for adjustment of medications. 3. Possible subacute to old stroke. The patient has history of multiple strokes in the past. CAT scan showing subacute to old left anterior and left occipital infarct. We do not know when it happened. The patient has no other symptoms , except for dysphagia, no other residual symptoms. He is on Coumadin, and INR is supratherapeutic. Will follow MRI/MRA head . We will do echo and carotid Doppler. Speech evaluation, PT, OT, neuro evaluation for further recommendations. 4. Right-sided heart failure, on Lasix that he takes on the weekends with potassium supplement. Follow repeat echo, monitor for any volume overload. The patient is getting fluids. 5. History of atrial fibrillation, currently bradycardia. Verapamil is on hold. We will monitor. INR is supratherapeutic. 6. History of mechanical mitral valve replacement. On Coumadin, INR is supratherapeutic. We are holding Coumadin, follow the PT/INR. 7. History of anemia . We will monitor. 8. Hypertension, on Cozaar. Holding verapamil. We will do iv Vasotec p.r.n., and we will monitor. 9. Deep venous thrombosis prophylaxis. INR is 4.2. 10. Disposition: Admit to tele floor. Level 1 full code discussed with the patient. Social Service to help with discharge planning. Expected discharge home and follow with his family doctor. ROSA
--- NOTE | 2018-07-23 18:49 | Magnetic Resonance Report ---
MR angio head wo con HISTORY: Stroke cva TECHNIQUE: 3-D [id number] MRA of the brain was performed without contrast. COMPARISON STUDY: None. FINDINGS: Visualized intracranial internal carotid arteries, distal vertebral arteries, and basilar a rtery are widely patent. There is no significant stenosis, occlusion, or aneurysm seen within the pat ateral ACAs, MCAs, or radiology therapist. IMPRESSION: No significant stenosis, occlusion, or aneurysm within the [place]. The above report was generated using voice recognition software. It may contain grammatical, syntax or spelling errors. Electronically signed by: Riky France M.D. 07/23/2018 6:47 PM
[2018-07-23] MEDS ORDERED: GADOBUTROL 65ML VIAL IV PRN (19:22)
--- NOTE | 2018-07-23 19:34 | Magnetic Resonance Report ---
MR brain wo/w con CLINICAL HISTORY: cva stroke COMPARISON STUDY: No previous studies for comparison. TECHNIQUE: Utilizing a 1.5 Jonna magnet and dedicated coil, multiplanar, multiecho imaging of the br ain was performed pre and postcontrast administration. IV administration of 10.75 mL of Gadavist con trast was uneventful. FINDINGS: Limited study as the patient could not tolerate the study. Diffusion images are considered negative for an acute ischemic insult. There are findings of an old left occipital infarct. There is a small old right occipital infarct. Age-related atrophy and chronic small vessel change are noted throughout. Postcontrast images are con sidered negative for an enhancing lesion. Ventricular system is midline. The sella and parasellar regions are unremarkable. IMPRESSION: 1. 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 2. Age-related atrophy and chronic small vessel change. 3. No acute ischemic insult. 4. No abnormal postcontrast enhancement. The above report was generated using voice recognition software. It may contain grammatical, syntax or spelling errors. Electronically signed by: Riky France M.D. 07/23/2018 7:32 PM
--- NOTE | 2018-07-23 20:01 | Magnetic Resonance Report ---
MR angio neck wo/w con HISTORY: Mental status change cva TECHNIQUE: Multiaxial CT angiography of the neck was performed 10.5 IV contrast: 1.5 All measureme nts were calculated based on NASCET criteria. Maximum intensity projection images were also obtained . A dose lowering technique was utilized adhering to the principles of ALARA. COMPARISON STUDY: None. Findings: Study is nondiagnostic study is nondiagnostic due to severe patient motion. IMPRESSION: Nondiagnostic study due to severe patient motion. The above report was generated using voice recognition software. It may contain grammatical, syntax or spelling errors. Electronically signed by: Riky France M.D. 07/23/2018 8:00 PM
[2018-07-23] MEDS: NITROGLYCERIN 2% OINTMENT 30GM TUBE EXT SCH (22:25)
[2018-07-24] MEDS: SODIUM CHLORIDE 0.9% 1000ML 1,000 ML IV SCH ×2 (04:43→16:04)
[2018-07-24] MEDS: NITROGLYCERIN 2% OINTMENT 30GM TUBE EXT SCH ×2 (04:43→10:17)
[2018-07-24 07:25] LABS: Hematocrit (blood only) 36.2 % (42-52); Hemoglobin 11.8 g/dL (14.0-18.0); Immature Granulocytes # (auto) 0.01 K/uL (0.00-0.02); Immature Granulocytes % (auto) 0.1 %; Lymphocytes # (auto) 0.51 K/uL (1.2-3.4); Lymphocytes % (auto) 6.2 %; Mean Corpuscular Hgb Conc 32.6 g/dL (32-36); Mean Corpuscular Volume 91.6 fL (80-100); Monocytes # (auto) 0.63 K/uL (0.11-0.59); Monocytes % (auto) 7.6 %; Neutrophils # (auto) 7.12 K/uL (1.4-6.5); Neutrophils % (auto) 86.1 %; Platelet Count 147 K/uL (130-400); RDW Coefficient of Variation 13.6 % (11.5-14.5); RDW Standard Deviation 45.9 fL (36.4-46.3); Red Blood Count 3.95 M/uL (4.7-6.1); White Blood Count 8.27 K/uL (4.8-10.8)
[2018-07-24 07:43] LABS: Prothrombin Time 39.9 Seconds (9.0-12.0)
[2018-07-24 07:51] LABS: INR 4.3 (0.9-1.1)
[2018-07-24 07:57] LABS: Estimated Average Glucose 120 mg/dl; Hemoglobin A1C 5.8 % (4.5-5.6)
[2018-07-24 08:00] LABS: BUN Creatinine Ratio 17.9 (10-20); Calcium 8.6 mg/dl (8.5-10.1); Creatinine Clr Calc Pharmacy 78.1 ml/min; Est GFR (African American) 86.8; Est GFR (Non-African American) 74.9
[2018-07-24] MEDS: MULTIVITAMIN TAB PO SCH (09:25)
[2018-07-24] MEDS: LOSARTAN POTASSIUM 50 MG TAB PO SCH (11:01)
--- NOTE | 2018-07-24 11:21 | Gastroenterology Progress Note ---
Date of Service July 24, 2018 Assessment & Plan (1) Difficulty swallowing: Differentials considered include radiation stricture, recurrence of throat cancer, presbyesophagus. 1. Recommend ENT referral for otolaryngology. Discussed with Dr. Chirinos. 2. Unfortunately undergoing EGD today would be dangerous because the patient has drank some soda additionally if we were to do EGD today, we would not be able to do any therapeutic interventions because his INR is 4. 3. Recommend holding and/or bridging Coumadin (will defer to cardiology) and our office will call him to arrange outpatient EGD next week. 4. Continue a full liquid diet until EGD. 5. GI will sign off. Please notify us of new/worrisome GI issues. Present on Admission?: Yes Supervising Physician Co-Signing Physician Notes I saw and evaluated the patient. We are consulted for evaluation of solid food dysphagia ongoing for over 6 months. The patient notes that things stick intermittently but have been persistent over the last few weeks. He did have an upper GI series in the past by speech pathology who thought he may have silent aspiration. The patient is uncertain if he ever had an upper endoscopy performed Physical examination Elderly male in no obvious distress Impression Patient with intermittent solid food dysphagia. We could certainly pursue an upper endoscopy with possible dilation in the near future. The patient is anticoagulated with an INR of greater than 4.5. As he has had a stroke with reversal in the past I would suggest that we simply allow his INR to drift to 1.5 prior to doing an endoscopic evaluation. This could be done as an outpatient if he is in charge of blood from his other medical conditions. The patient may need to be on a Lovenox window and I would defer this to his cardiology and neurology providers. Subjective Mr. Duarte Matson is a 78 yr old male pt of Dr. Medellin with a hx of tongue/oral cancer having undergone chemo and radiation (no surgery) approx 10 yrs ago. He also carries a hx of chronic A-fib on coumadin, prior CVA during a period of subtherapeutic INR, mechanical mitral valve replacement, right-sided heart failure on echo. He presented to the ED yesterday with complaint of difficulty swallowing for approximately 6 months, worse in the past 6 weeks. He describes being unable to get the food and liquid from his mouth into his throat, sometimes spewing of liquids or liquids coming out his nose. This did not start as a progressive dysphasi. Instead this began with liquids and solids at the same time. He denies any symptoms of reflux, chest pain or burning, epigastric burning or abdominal pain. He is seen and examined when he is sitting up in bed. He is awake alert and oriented. Unfortunately he has drank some small amounts of orange soda this morning. His INR is supratherapeutic at 4. He cares for disabled . He would like to get home quickly to continue to take care of her. He tells us that if he is not able to undergo EGD today, he would like to go home and return later for an outpatient procedure. He tells us that he recently underwent a video swallow study with recommendation from speech therapy for chin tuck and slippery foods. Review of Systems Review of Systems: ROS: Gen: Denies weakness, fevers, weight loss Eyes: No eye redness, or pain, no recent vision changes Resp: No SOB, no cough Cardio: No palpitations/irregular beats, no chest pain GI: + dysphagia, no abdominal pain, no reflux, no nausea/vomiting : Denies pain on urination Skin: No jaundice, itching or new rashes Physical Exam Constitutional: WD/WN, vitals as above Neck: trachea midline, no thyromegaly Respiratory: normal respiratory effort, lungs clear to auscultation Cardiovascular: RRR, no murmur, no edema Gastrointestinal (Abdomen): normal bowel sounds, soft, nontender, no hepatosplenomegaly Skin: no rashes, warm and dry Neurologic: PERRL, EOMI, accommodation nl, no face palsy, no dysarthria Psychiatric: A+Ox3, euthymic affect Lymphatic: no cervical or axillary lymphadenopathy Results & Data Vital Signs (Past 12 Hours) Vital Signs Temp Pulse Pulse Resp BP Pulse Ox 07/24/18 11:13 36.9 C 72 16 172/89 H 96 07/24/18 07:49 37.0 C 68 20 148/83 H 94 07/24/18 03:06 36.5 C 68 19 167/[address] Head: 07/23/18: 1. No acute intracranial abnormality. 2. 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 3. Subacute to old left anterior left occipital infarct Soft Tissue Neck CT 07/23/18: 1. Difficult study to interpret due to the absence of prior examinations. 2. Prominence of the soft tissues base of the left uvula 3. soft tissue prominence of the glottic and subglottic region. 4.. Direct Visualization is recommended to exclude any possibility of recurrent neoplasm. MRA Head 07/23/18: Old bilateral occipital infarcts.. 2. Age-related atrophy and chronic small vessel change. 3. No acute ischemic insult. 4. No abnormal postcontrast enhancement.
--- NOTE | 2018-07-24 13:00 | Cardiology Progress Note ---
Date of Service July 24, 2018 Assessment & Plan (1) Bradycardia: Patient is asymptomatic. Verapamil has been held, last dose prior to arrival on 07/22 cont to monitor (2) HTN (hypertension): remains elevated will start amlodipine since verapamil d/c'ed avoid further av sri blocking agents (3) Chronic atrial fibrillation: Slow ventricular response noted. Verapamil on hold. Warfarin will also be placed on hold in anticipation of possible endoscopic procedures. Hemoglobin is stable. No signs of GI/ blood loss. Patient will require bridging therapy when INR falls below 2.5. (4) H/O mitral valve replacement with mechanical valve: Normal function per repeat resting 2D transthoracic echocardiogram and adequately anticoagulated with Coumadin. will bridge with lovenox once INR below 2.5 INR of 4.3 today (5) Throat mass: pt for ENT eval already scheduled for EGD with GI would not restart coumadin until all procedures completed Lovenox to be managed by outpatient MTM clinic upon discharge should urgent procedures be deemed necessary: would reverse INR and start heparin gtt once bleeding risk is acceptable after procedures Subjective Pt seen and examined, states that he's feeling well except for continued hoarseness and dysphagia. Denies cp, sob, palpitations, lightheadedness or dizziness. tele reviewed: afib rate controlled with dips into 40's overnight Review of Systems Review of Systems: All systems reviewed & are unremarkable except as noted in HPI & below Physical Exam Physical Exam: General: Awake, alert and oriented x 3. No acute distress. HEENT: Normocephalic, atraumatic. Pupils equal, round and reactive to light and accommodation. Extraocular muscles are intact. Anicteric sclera. Moist mucous membranes. Very hoarse. Neck: No JVD. No bruit. Cardiovascular: irregularly irregular, unable to appreciate murmur, rub or gallop. Pulmonary: Clear to auscultation bilaterally. No rales, rhonchi, or wheezing. Abdomen: Bowel sounds x 4, soft. No rebound, guarding or tenderness. No organomegaly. Extremities: No clubbing, cyanosis or edema. +2 pedal pulses bilaterally. Skin: Warm and dry. Results & Data Vital Signs (Past 12 Hours) Vital Signs Temp Pulse Pulse Resp BP Pulse Ox 07/24/18 11:13 36.9 C 72 16 172/89 H 96 07/24/18 07:49 37.0 C 68 20 148/83 H 94 07/24/18 03:06 36.5 C 68 19 167/86 H 97 (1) HTN (hypertension) Hypertension type: essential hypertension Qualified Code(s): I10 - Essential (primary) hypertension
[2018-07-24] MEDS: AMLODIPINE BESYLATE 5 MG TAB PO SCH (13:05)
--- NOTE | 2018-07-24 13:47 | Fluoroscopy Report ---
VIDEO SWALLOW STUDY CLINICAL HISTORY: Aspiration. COMPARISON STUDY: Video swallow assessment dated 08/15/2016. Fluoroscopy time: 2.5 minutes. FINDINGS: Fluoroscopic guidance was provided to the department of speech pathology in performing a vi romario swallow study. The patient consumed barium impregnated pudding, cracker with paste, nectar thick liquid, and thin barium while the swallowing mechanism was observed in real-time. There was pharyngea l penetration and silent aspiration seen with thin barium. Aspiration was also seen with the nectar t hick liquid texture. No penetration or aspiration was seen with the cracker with paste or pudding cristobal tures. Midline sternotomy wires are noted. IMPRESSION: 1. There is silent aspiration with thin barium. 2. Aspiration was also seen with the nectar thick liquid texture. 3. See dedicated speech pathology report for detailed findings and recommendations. Dictated: 07/24/2018 1:17 PM Transcribed: 07/24/2018 1:47 PM Gretchen [id number] [email or web address] Electronically signed by: Isaac Keen M.D. 07/24/2018 1:50 PM
[2018-07-24] MEDS ORDERED: AMLODIPINE BESYLATE 5 MG TAB PO ONE (16:21)
[2018-07-24] MEDS ORDERED: MIRTAZAPINE TAB 15 MG TAB PO PRN (18:08)
--- NOTE | 2018-07-24 19:07 | Hospitalist Progress Note ---
Date of Service July 24, 2018 Assessment & Plan (1) Dysphagia: ASSESSMENT AND PLAN: This is a 78-year-old male who presents with ongoing dysphagia. 1. Dysphagia - for the last 6 months but worse in the last 6 weeks. History of right tonsillar and right tongue cancer, status post chemoradiation about 10 years ago. - CT Soft tissue neck: IMPRESSION: 1. Difficult study to interpret due to the absence of prior examinations. 2. Prominence of the soft tissues base of the left uvula 3. soft tissue prominence of the glottic and subglottic region. 4.. Direct Visualization is recommended to exclude any possibility of recurrent neoplasm. -Speech therapist evaluation today, status post video swallow exam, silent aspiration noted Follow recommendations -GI consulted, recommend outpatient EGD -ENT consulted, however no on-call ENT this week Called for an ENT appointment, July 30, 2018, 2:15 PM, [facility], Dr. Ayon 2. Bradycardia. The patient has history of atrial fibrillation, came with junctional rhythm, was given atropine, currently heart rate has improved to 60s. -Verapamil held Now in atrial fibrillation with slow ventricular response -Cardiology consulted Recommend to continue anticoagulation 3. Possible subacute to old stroke. -Ruled out acute stroke Brain MRI: 1. 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 2. Age-related atrophy and chronic small vessel change. 3. No acute ischemic insult. 4. No abnormal postcontrast enhancement. 4. Right-sided heart failure, on Lasix that he takes on the weekends with potassium supplement. Follow repeat echo, monitor for any volume overload. 5. History of atrial fibrillation, currently bradycardia. Verapamil is on hold. INR is supratherapeutic. 6. History of mechanical mitral valve replacement. On Coumadin, INR is supratherapeutic. We are holding Coumadin, INR 4.3 7. History of anemia . We will monitor. 8. Hypertension, on Cozaar. Holding verapamil. We will do iv Vasotec p.r.n., and we will monitor. 9. Deep venous thrombosis prophylaxis. INR is 4.3. 10. Disposition: Admit to tele floor. Level 1 full code discussed with the patient. Social Service to help with discharge planning. Expected discharge home and follow with his family doctor. Subjective Follow-up for aphasia, bradycardia Seen resting in bed, comfortable States he is improved since admission, able to tolerate sips of water with no problems Denies chest pain, dizziness, shortness of breath, palpitations No other symptoms Review of Systems Review of Systems: All systems reviewed & are unremarkable except as noted in HPI & below Physical Exam Physical Exam: General- oriented x 3, not in distress, speaks in sentences wit h no effort or accessory muscle use Head- atraumatic Eyes- PERRL, EOMI, anicteric ENT- oropharynx clear Neck- supple, no JVD, no adenopathy, no thyromegaly; carotids +2/2, no bruits appreciated Lungs- clear to auscultation bilaterally, no rales/wheezes Heart- normal rate, regular rhythm; no murmur, no gallop, no rub appreciated Abdomen- normal bowel sounds, nondistended, soft, nontender, no masses or hepatosplenomegaly Extremities- no pretibial edema, no calf tenderness; peripheral pulses intact Neuro- alert, oriented x 3; CN 2-12 grossly intact; motor 5/5 bilaterally;sensation 100% on all extremities; no other gross focal neurologic deficits Skin- warm & dry Results & Data Vital Signs (Past 12 Hours) Vital Signs Temp Pulse Resp BP BP Pulse Ox 07/24/18 17:47 74 143/91 H 07/24/18 15:25 36.8 C 69 18 194/98 H 97 07/24/18 14:03 75 17 167/86 H 95 07/24/18 11:13 36.9 C 72 16 172/89 H 96 07/24/18 07:49 37.0 C 68 20 148/83 H 94
[2018-07-25] MEDS: SODIUM CHLORIDE 0.9% 1000ML 1,000 ML IV SCH (04:19)
[2018-07-25 06:51] LABS: Basophils # (auto) 0.01 K/uL (0-0.2); Basophils % (auto) 0.2 %; Eosinophils # (auto) 0.04 K/uL (0-0.5); Eosinophils % (auto) 0.7 %; Hematocrit (blood only) 36.2 % (42-52); Hemoglobin 11.8 g/dL (14.0-18.0); Immature Granulocytes # (auto) 0.01 K/uL (0.00-0.02); Immature Granulocytes % (auto) 0.2 %; Lymphocytes # (auto) 0.65 K/uL (1.2-3.4); Mean Corpuscular Hgb Conc 32.6 g/dL (32-36); Mean Corpuscular Volume 92.8 fL (80-100); Mean Platelet Volume 9.9 fL (7.4-10.4); Monocytes # (auto) 0.62 K/uL (0.11-0.59); Monocytes % (auto) 10.5 %; Neutrophils # (auto) 4.58 K/uL (1.4-6.5); Neutrophils % (auto) 77.4 %; Platelet Count 128 K/uL (130-400); RDW Coefficient of Variation 13.9 % (11.5-14.5); RDW Standard Deviation 47.3 fL (36.4-46.3); White Blood Count 5.91 K/uL (4.8-10.8)
[2018-07-25 07:19] LABS: Est GFR (Non-African American) 76.8; Potassium 3.7 mmol/L (3.5-5.1)
[2018-07-25 07:20] LABS: BUN Creatinine Ratio 15.4 (10-20); Calcium 8.3 mg/dl (8.5-10.1); Creatinine Clr Calc Pharmacy 80.1 ml/min
[2018-07-25] MEDS: LOSARTAN POTASSIUM 50 MG TAB PO SCH (07:28)
[2018-07-25] MEDS: MULTIVITAMIN TAB PO SCH (07:28)
[2018-07-25] MEDS: AMLODIPINE BESYLATE 5 MG TAB PO SCH (07:28)
[2018-07-25 07:50] LABS: INR 4.9 (0.9-1.1)
[2018-07-25] MEDS ORDERED: AMLODIPINE BESYLATE 5 MG TAB PO ONE (08:30)
[2018-07-25] MEDS ORDERED: TERAZOSIN HCL 1 MG CAP PO ONE (08:30)
--- NOTE | 2018-07-25 13:33 | Cardiology Progress Note ---
Date of Service July 25, 2018 Assessment & Plan (1) Bradycardia: Patient is asymptomatic. Verapamil has been held, last dose prior to arrival on 07/22 no recurrence would not restart verapamil ok to d/c to home from cardiac standpoint. (2) HTN (hypertension): finally well controlled would d/c home on current doses of amlodipine, losartan and terazosin (3) Chronic atrial fibrillation: rates controlled Patient will require bridging therapy when INR falls below 2.5. (4) H/O mitral valve replacement with mechanical valve: Normal function per repeat resting 2D transthoracic echocardiogram and adequately anticoagulated with Coumadin. will bridge with lovenox once INR below 2.5 INR of 4.3 today (5) Throat mass: pt for ENT eval already scheduled for EGD with GI would not restart coumadin until all procedures completed Lovenox to be managed by outpatient MTM clinic upon discharge should urgent procedures be deemed necessary: would reverse INR and start heparin gtt once bleeding risk is acceptable after procedures Subjective Pt seen and examined, states that he feels well today. Hoarseness has improved. Denies cp, sob, palpitations, lightheadedness or dizziness. tele reviewed: atrial fibrillation without significant bradyarrhythmias or pauses >3 seconds while awake Review of Systems Review of Systems: All systems reviewed & are unremarkable except as noted in HPI & below Physical Exam Physical Exam: General: Awake, alert and oriented x 3. No acute distress. HEENT: Normocephalic, atraumatic. Pupils equal, round and reactive to light and accommodation. Extraocular muscles are intact. Anicteric sclera. Moist mucous membranes. Neck: No JVD. No bruit. Cardiovascular: irregularly irregular, unable to appreciate murmur, rub or gallop. Metallic S2 Pulmonary: Clear to auscultation bilaterally. No rales, rhonchi, or wheezing. Abdomen: Bowel sounds x 4, soft. No rebound, guarding or tenderness. No organomegaly. Extremities: No clubbing, cyanosis or edema. +2 pedal pulses bilaterally. Skin: Warm and dry. Results & Data Vital Signs (Past 12 Hours) Vital Signs Temp Pulse Resp BP Pulse Ox 07/25/18 10:29 37 C 75 20 122/69 96 07/25/18 07:26 36.7 C 72 18 183/94 H 96 07/25/18 04:20 36.6 C 54 L 18 155/88 H 95 (1) HTN (hypertension) Hypertension type: essential hypertension Qualified Code(s): I10 - Essential (primary) hypertension
--- NOTE | 2018-07-25 14:54 | Hospitalist Progress Note ---
Date of Service July 25, 2018 Assessment & Plan (1) Dysphagia: ASSESSMENT AND PLAN: This is a 78-year-old male who presents with ongoing dysphagia. Dysphagia - for the last 6 months but worse in the last 6 weeks. History of right tonsillar and right tongue cancer, status post chemoradiation about 10 years ago. - CT Soft tissue neck: IMPRESSION: 1. Difficult study to interpret due to the absence of prior examinations. 2. Prominence of the soft tissues base of the left uvula 3. soft tissue prominence of the glottic and subglottic region. 4.. Direct Visualization is recommended to exclude any possibility of recurrent neoplasm. -Speech therapist evaluation today, status post video swallow exam, silent aspiration noted: soft bite sized diet -GI consulted but recommended outpatient EGD due to supratherapetic INR -Discharge to home Patient should have coumadin level checked with primary care provider or coumadin clinic in [place]. Patient should stop taking coumadin for now because of elevated INR levels and plans for outpatient upper endoscopy. Patient should start taking Lovenox (Enoxaparin) 100 mg every 12 hours when INR level is less than 2.5 -Patient should take 10 mg amlodipine daily to treat high blood pressure Prescriptions of Lovenox (Enoxaparin) 100 mg every 12 hours and amlodipine 10 mg daily has been [facility] transmitted [facility] [id number] 07/26/2018 9:30 AM Provider [facility] Department Pharmacy [facility] -Mr. Cosme Medellin 07/26/18 at 1 PM [facility] [address] [place] [address] JUNE Deluca [address] -07/30/2018 2:30 PM Provider Connie Chopra MD Department Otolaryngology [facility] -07/31/2018 11:00 AM Provider Malick Man DO Department Gastroenterology, [facility] Bradycardia on this admission -verapamil was stopped on this admission -Patient should avoid verapamil at home to prevent bradycardia Supratherapeutic INR -Patient should stop taking coumadin for now because of elevated INR levels (current level is 4.9) and plans for outpatient upper endoscopy. Patient should start taking Lovenox (Enoxaparin) 100 mg every 12 hours when INR level is less than 2.5 as per outpatient coumadin clinic and primary care clinic follow ups Anemia -Hgb stable despite elevated INR Chronic atrial fibrillation -Cardiology consulted and advised to with hold verapamil to avoid bradycardia -heart rate controlled; anticoagulation plans as above History of mechanical mitral valve replacement -anticoagaulation plans as above Hypertension -Verapamil was stopped on this admission -continue home dose Losartan -increased amlodipine from 5 mg to 10 mg daily and continue 10 mg daily on discharge Right-sided heart failure -on Lasix that he takes on the weekends with potassium supplement. -no acute decompensation at this time Old strokes, no evidence of acute stroke Brain MRI: 1. 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 2. Age-related atrophy and chronic small vessel change. 3. No acute ischemic insult. 4. No abnormal postcontrast enhancement. -no acute neurological deficits -outpatient management Discharge Diagnosis Dysphagia, Supratherapeutic INR, History of mechanical mitral valve replacement, Chronic atrial fibrillation, Bradycardia on this admission, Hypertension, Old strokes Discharge Instructions Discharge to home Patient should have coumadin level checked with primary care provider or coumadin clinic in [place]. Patient should stop taking coumadin for now because of elevated INR levels and plans for outpatient upper endoscopy. Patient should start taking Lovenox (Enoxaparin) 100 mg every 12 hours when INR level is less than 2.5 Patient should avoid verapamil at home to prevent bradycardia Patient should take 10 mg amlodipine daily to treat high blood pressure Prescriptions of Lovenox (Enoxaparin) 100 mg every 12 hours and amlodipine 10 mg daily has been electronically transmitted to pharmacy on[address] [facility] [place] [address] 07/26/2018 9:30 AM Provider [facility] [place] Department Pharmacy [facility] Mr. Cosme BlackwellBailey Medellin 07/26/18 at 1 PM [facility] [address] [place] [address] 07/30/2018 2:30 PM Provider Connie Chopra MD Department Otolaryngology [facility] 07/31/2018 11:00 AM Provider Malick Man DO Department Gastroenterology, [facility] Subjective Patient requesting hospital discharge and cardiology service also agrees with hospital discharge with plans for patient to transition to Lovenox 1 mg/kg every 12 hours once INR is less than 2.5. Patient aware of close follow up needed as outpatient. Patient denies chest pain or palpitations or shortness of breath. No dizziness. No headache. No vomiting Physical Exam Constitutional: WD/WN, vitals as above Eyes: PERRL, conjunctivae normal, anicteric sclerae EOM intact bilaterally ENMT: external ear and nose normal, oropharynx normal Neck: trachea midline, no thyromegaly normal visual inspection Respiratory: normal respiratory effort, lungs clear to auscultation Cardiovascular: Rate/Rhythm: regular rate and + irregularly irregular Gastrointestinal (Abdomen): normal bowel sounds, soft, nontender, no hepatosplenomegaly Neurologic: PERRL, EOMI, accommodation nl, no face palsy, no dysarthria CN's II-XI intact bilaterally Psychiatric: A+Ox3, euthymic affect Results & Data Vital Signs (Past 12 Hours) Vital Signs Temp Pulse Resp BP Pulse Ox 07/25/18 10:29 37 C 75 20 122/69 96 07/25/18 07:26 36.7 C 72 18 183/94 H 96 07/25/18 04:20 36.6 C 54 L 18 155/88 H 95
--- NOTE | 2018-07-25 15:07 | Discharge Summary ---
Date of Service July 25, 2018 Admission HPI [facility] History and Physical Report Signed Patient: ERLINDA RAO Date: 07/23/18 MR#: [id number] Phy: Jefe Chirinos MD Acct ID:[id number] Phy: Cosme Medellin PA-C Date: 1940Fam Phy: Cosme Medellin PA-C Age: 78Location: 2S Sex: M Room/Bed: [facility] cc: Patricio Napoles MD~ DICTATED BY: Patricio Napoles MD DATE OF ADMISSION: 07/23/2018 CHIEF COMPLAINT: Ongoing dysphagia. 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 The patient is having the symptoms for last 6 months but worse over the last 6 weeks. Some of the big pills he is not able to swallow, sometimes the liquid is coming out from his nose. Currently, he is only drinking hot chocolate and some liquid diet. Because of his ongoing symptoms, he came to the ER. In the ER, he was found to have bradycardic heart rate in the 40s. In the ER, the patient was given atropine, and heart rate came to the 50s and 60s. CAT scan of the head shows previous strokes and also possible subacute to old left anterior, left occipital infarct. Also, the patient's soft tissue neck CT was done showing difficult to interpret, but prominence of soft tissue base of the left uvula, soft tissue prominence of glottic and subglottic region. Direct visualization is recommended to explain the possibility of recurrent neoplasm. Currently resting comfortably and hemodynamically stable with blood pressure somewhat running on the higher side. He denies any headache. No blurred vision, no earache, no runny nose, no sore throat. No cough, no fever, no chills, no chest pain, no shortness of breath. No nausea, no vomiting, no abdominal pain. Normal bowel and bladder movements. No blood in the stools, no hematuria, no burning micturition. He says he takes Lasix on the weekends for swelling in the legs. No rash. Bruises easily because he is on Coumadin. Lives with his and grandkids. Ambulates without any help. ALLERGIES: ALLOPURINOL, LISINOPRIL. PAST MEDICAL HISTORY: As mentioned above. PAST SURGICAL HISTORY: History of mitral valve replacement with mechanical valve, history of dental surgeries, history of endocrine surgeries, status post cholecystectomy, status post ERCP, laparoscopic left inguinal hernia repair, radiation to mouth and tongue. MEDICATIONS: The patient is on Lasix 40 mg on the weekends, potassium supplement when taking Lasix, multivitamin daily, losartan 100 mg daily, Senokot-S 2 tablets p.o. at bedtime p.r.n., verapamil 120 mg p.o. b.i.d., Coumadin 5 mg p.o. daily. FAMILY HISTORY: Significant for mother had cancer of the skin of the face. Sister has diabetes, another sister has anxiety. SOCIAL HISTORY: and lives with his . No smoking, no alcohol, no drug use. REVIEW OF SYMPTOMS: As per HPI. Rest of review of systems is negative. Admission Exam Per Admitting Provider PHYSICAL EXAMINATION: GENERAL: The patient is of moderate build, not in acute distress. VITAL SIGNS: Temperature 36.9, pulse was 42, right now it is 64, respiratory rate 20, blood pressure 182/87, oxygen 93% on room air. HEENT: No pallor, no icterus. Pupils equal, round, reactive to light. NECK: No JVD, no neck masses, no carotid bruit. CARDIOVASCULAR: S1, S2 heard, regular rate and rhythm, no murmur, no gallop. RESPIRATORY SYSTEM: Normal AP diameter. No accessory muscle use. No wheezing, no crackles. ABDOMEN: Soft, bowel sounds present. Nontender. No distention. CENTRAL NERVOUS SYSTEM: Cranial nerves II-XII grossly intact. Nonfocal. EXTREMITIES: No edema, no erythema. ORAL MUCOSA: No obvious lesions seen in the pharynx uvula region. Principal Diagnosis Dysphagia, Supratherapeutic INR, History of mechanical mitral valve replacement, Chronic atrial fibrillation, Bradycardia on this admission, Hypertension, Old strokes Discharge Exam Constitutional WD/WN, vitals as above Eyes PERRL, conjunctivae normal, anicteric sclerae EOM intact bilaterally ENMT external ear and nose normal, oropharynx normal Neck trachea midline, no thyromegaly normal visual inspection Respiratory normal respiratory effort, lungs clear to auscultation Cardiovascular Rate/Rhythm: regular rate Gastrointestinal (Abdomen) normal bowel sounds, soft, nontender, no hepatosplenomegaly Neurologic PERRL, EOMI, accommodation nl, no face palsy, no dysarthria CN's II-XI intact bilaterally Psychiatric A+Ox3, euthymic affect Discharge Data Allergies Allergy/AdvReac Type Severity Reaction Status Date / Time allopurinol AdvReac Mild COUGH Verified 07/23/18 08:38 lisinopril AdvReac Mild COUGH Verified 07/23/18 08:38 Consultations 07/23/18 12:31 ED Decision to Admit Stat 07/23/18 12:53 Consult Cardiology Routine Consult Case Management - Discharge Planning Routine Consult Case Management - Discharge Planning Routine Consult Gastroenterology Routine Consult Neurology Routine Consult Neurology Routine 07/23/18 15:09 Consult Otolaryngology (Head and Neck) Routine Ordered Studies 07/23/18 08:27 CT head/brain wo con Stat CT soft tissue neck w con Stat 07/23/18 12:53 US carotid doppler BI Routine 07/23/18 15:14 MR angio head wo con Stat MR angio neck wo/w con Stat MR brain wo/w con Stat 07/24/18 12:30 FL video swallow Routine Hospital Course (1) Dysphagia: ASSESSMENT AND PLAN: This is a 78-year-old male who presents with ongoing dysphagia. Dysphagia - for the last 6 months but worse in the last 6 weeks. History of right tonsillar and right tongue cancer, status post chemoradiation about 10 years ago. - CT Soft tissue neck: IMPRESSION: 1. Difficult study to interpret due to the absence of prior examinations. 2. Prominence of the soft tissues base of the left uvula 3. soft tissue prominence of the glottic and subglottic region. 4.. Direct Visualization is recommended to exclude any possibility of recurrent neoplasm. -Speech therapist evaluation today, status post video swallow exam, silent aspiration noted: soft bite sized diet -GI consulted but recommended outpatient EGD due to supratherapetic INR -Discharge to home Patient should have coumadin level checked with primary care provider or coumadin clinic in [place]. Patient should stop taking coumadin for now because of elevated INR levels and plans for outpatient upper endoscopy. Patient should start taking Lovenox (Enoxaparin) 100 mg every 12 hours when INR level is less than 2.5 -Patient should take 10 mg amlodipine daily to treat high blood pressure Prescriptions of Lovenox (Enoxaparin) 100 mg every 12 hours and amlodipine 10 mg daily has been electronically transmitted to pharmacy [address], [place] [address] 07/26/2018 9:30 AM Provider [facility] [place] Department Pharmacy [place] -Mr. Cosme Medellin 07/26/18 at 1 PM [facility] [address] [place], [place] [address] -07/30/2018 2:30 PM Provider Connie Chopra MD Department Otolaryngology [facility] -07/31/2018 11:00 AM Provider Malick Man DO Department Gastroenterology, [facility] Bradycardia on this admission -verapamil was stopped on this admission -Patient should avoid verapamil at home to prevent bradycardia Supratherapeutic INR -Patient should stop taking coumadin for now because of elevated INR levels (current level is 4.9) and plans for outpatient upper endoscopy. Patient should start taking Lovenox (Enoxaparin) 100 mg every 12 hours when INR level is less than 2.5 as per outpatient coumadin clinic and primary care clinic follow ups Anemia -Hgb stable despite elevated INR Chronic atrial fibrillation -Cardiology consulted and advised to with hold verapamil to avoid bradycardia -heart rate controlled; anticoagulation plans as above History of mechanical mitral valve replacement -anticoagaulation plans as above Hypertension -Verapamil was stopped on this admission -continue home dose Losartan -increased amlodipine from 5 mg to 10 mg daily and continue 10 mg daily on discharge Right-sided heart failure -on Lasix that he takes on the weekends with potassium supplement. -no acute decompensation at this time Old strokes, no evidence of acute stroke Brain MRI: 1. 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 2. Age-related atrophy and chronic small vessel change. 3. No acute ischemic insult. 4. No abnormal postcontrast enhancement. -no acute neurological deficits -outpatient management Discharge Diagnosis Dysphagia, Supratherapeutic INR, History of mechanical mitral valve replacement, Chronic atrial fibrillation, Bradycardia on this admission, Hypertension, Old strokes Discharge Instructions Discharge to home Patient should have coumadin level checked with primary care provider or coumadin clinic in [place]. Patient should stop taking coumadin for now because of elevated INR levels and plans for outpatient upper endoscopy. Patient should start taking Lovenox (Enoxaparin) 100 mg every 12 hours when INR level is less than 2.5 Patient should avoid verapamil at home to prevent bradycardia Patient should take 10 mg amlodipine daily to treat high blood pressure Prescriptions of Lovenox (Enoxaparin) 100 mg every 12 hours and amlodipine 10 mg daily has been electronically transmitted to pharmacy [address] [facility] [place] [address] 07/26/2018 9:30 AM Provider [facility] [place] Department Pharm[facility] [place] Mr. Cosme Medellin 07/26/18 at 1 PM [facility] [address] [place] [address] [place] [address] 07/30/2018 2:30 PM Provider Connie Chopra MD Department Otolaryngology [facility] 07/31/2018 11:00 AM Provider Malick Man DO Department Gastroenterology, [facility] Total Time Total Time Spent Total Time Spent (In Minutes): 40 minutes Total Time Includes: Examination of the Patient, Discharge Planning, Medication Reconciliation and Communication With Other Providers Discharge Plan Discharge Items Patient Disposition: Home - Self-Care Reason For Visit: DYSPHAGIA Discharge Diagnosis: Dysphagia, Supratherapeutic INR, History of mechanical mitral valve replacement, Chronic atrial fibrillation, Bradycardia on this admission, Hypertension, Old strokes Condition: Good Discharge Goals: Diagnostic testing and Improve disease control Activity: Resume your previous activity Non-emergency contact: Primary Care Provider and Employee Service Officer Call non-emergency contact if: you have any medication questions Follow-up/Referrals: Cosme Medellin, PA-C [Primary Care Provider] - Diet: Heart Healthy Diet Texture: Dental soft (bite-sized) Addtl Provider Instructions: Discharge to home Patient should have coumadin level checked with primary care provider or coumadin clinic in [place]. Patient should stop taking coumadin for now because of elevated INR levels and plans for outpatient upper endoscopy. Patient should start taking Lovenox (Enoxaparin) 100 mg every 12 hours when INR level is less than 2.5 Patient should avoid verapamil at home to prevent bradycardia Patient should take 10 mg amlodipine daily to treat high blood pressure Prescriptions of Lovenox (Enoxaparin) 100 mg every 12 hours and amlodipine 10 mg daily has been electronically transmitted to pharmacy [address] [place] [address] 07/26/2018 9:30 AM Provider [facility] [place] Department Pharmacy [place] Mr. Cosme BlackwellBailey Medellin 07/26/18 at [address] [place] [address] 07/30/2018 2:30 PM Provider Connie Chopra MD Department Otolaryngology [facility] 07/31/2018 11:00 AM Provider Malick Man DO Department Gastroenterology, [facility] Prescriptions: New enoxaparin 100 mg/mL Syringe 100 mg subcut Q12H 3 Days Qty: 6 RF: 0 amlodipine 10 mg tablet 10 mg PO QAM 30 Days Qty: 30 RF: 0 Continued multivitamin Tablet 1 tab PO DAILY RF: 0 sennosides-docusate sodium [Senna-S] 8.6-50 mg Tablet 2 tab PO HS PRN (Reason: Constipation) RF: 0 furosemide 20 mg Tablet 40 mg PO HS PRN (Reason: Fluid Retention) RF: 0 losartan 100 mg Tablet 100 mg PO DAILY RF: 0 potassium chloride 20 mEq Tablet Extended Release 20 meq PO DAILY PRN (Reason: Weight Gain) RF: 0 Discontinued verapamil 120 mg Tablet 120 mg PO BID RF: 0 warfarin 5 mg Tablet 5 mg PO DAILY RF: 0 Stand-Alone Forms: [facility] Discharge Orders: Discharge Order (Routine); Ordered 07/25/18 Ordered By: Kirit Rosado Admission Data Admit Date/Time: 07/23/18 11:43 Attending Provider: Kirit Rosado Admit Provider: Patricio Napoles Primary Care Provider: Cosme Medellin Other Providers: Aissatou Jones ; Shane Sheppard ; Aissatou Layton ; Zak Dickerson ; Patricio Napoles ; Aurelio Briggs ; Sergio Humphreys ; Adryan Milan ; Rainer Cole ; Joe Daniels ; Riky Dixon ; Shabana Arcos ; Aissatou Gupta ; Leon Spear ; Sheldon Estes ; Elisa Yanes ; Víctor Ray ; Malick Man ; Anastasia Vidal ; Yasmine Oliveira ; Tobias Simmons ; Prasanna Dumont ; Olesya Morales ; Taya Toledo ; Amanda Veloz ; Argentina Kent ; Neto Lomax ; Bjorn Pemberton ; Sherrie Polo ; Connie Chopra Service: Telemetry
--- NOTE | 2018-07-25 15:51 | Gastroenterology Progress Note ---
Date of Service Mr. 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 Today, doing well drinking liquids. Plan is to hold coumadin, bridge with Lovenox and do EGD next week July 25, 2018 Assessment & Plan (1) Dysphagia: Dysphagia likely secondary to prior radiation or from esophagitis. Hold coumadin - aware and agree with plans to bridge with Lovenox. EGD to be arranged for next or Mon for dysphagia, possible dilation. Liquid diet until dysphagia is resolved. No GI contraindication to DC. Present on Admission?: Yes Supervising Physician Co-Signing Physician Notes I saw and evaluated the patient. He does have a history of dysphasia and we are planning to do an upper endoscopy once his INR is below 1.5 we have made arrangements to have the upper endoscopy performed next week as an outpatient as it will likely take several days for his INR to drift below 1.5. Review of Systems Review of Systems: ROS: Gen: Denies weakness, fevers, + weight loss due to decreased food intake from dysphagia Eyes: No eye redness, or pain, no recent vision changes Resp: No SOB, no cough Cardio: No palpitations/irregular beats, no chest pain GI: + solids and liquids dysphagia. Denies abdominal pain, no nausea/vomiting : Denies pain on urination Skin: No jaundice, itching or new rashes Physical Exam Constitutional: WD/WN, vitals as above Eyes: PERRL, conjunctivae normal, anicteric sclerae ENMT: external ear and nose normal, oropharynx normal Neck: trachea midline, no thyromegaly Respiratory: normal respiratory effort, lungs clear to auscultation Cardiovascular: RRR, no murmur, no edema Gastrointestinal (Abdomen): normal bowel sounds, soft, nontender, no hepatosplenomegaly Skin: no rashes, warm and dry no jaundice Neurologic: PERRL, EOMI, accommodation nl, no face palsy, no dysarthria Psychiatric: A+Ox3, euthymic affect Lymphatic: no cervical or axillary lymphadenopathy Results & Data Vital Signs (Past 12 Hours) Vital Signs Temp Pulse Pulse Resp BP Pulse Ox 07/25/18 14:51 37 C 68 75 20 122/69 96 07/25/18 10:29 37 C 75 20 122/69 96 07/25/18 07:26 36.7 C 72 18 183/94 H 96 07/25/18 04:20 36.6 C 54 L 18 155/88 H 95 Diagnostic Findings Video Swallow 07/24/18: 1. There is silent aspiration with thin barium. 2. Aspiration was also seen with the nectar thick liquid texture. 3. See dedicated speech pathology report for detailed findings and recommendations CT neck 07/23/18: 1. Difficult study to interpret due to the absence of prior examinations. 2. Prominence of the soft tissues base of the left uvula 3. soft tissue prominence of the glottic and subglottic region. 4.. Direct Visualization is recommended to exclude any possibility of recurrent neoplasm. Brain MRI 07/23/18: IMPRESSION: 1. 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 2. Age-related atrophy and chronic small vessel change. 3. No acute ischemic insult. 4. No abnormal postcontrast enhancement.
[2018-07-26] MEDS ORDERED: ENOXAPARIN 100 MG/1ML SYR SQ SCH (09:00)
[2018-07-26] MEDS ORDERED: AMLODIPINE BESYLATE 5 MG TAB PO SCH (09:00)
== END 2018-07-25 16:00 | disposition home or self-care (01) | DRG 392 ==
LOC: ED 08:00 → 2S 11:43 → SUATTDRO 11:43 → 2S 12:40
DX: R13.19 Other dysphagia; I48.2 Chronic atrial fibrillation; Z86.79 Personal history of other diseases of the circulatory system; Z92.3 Personal history of irradiation; I50.810 Right heart failure, unspecified; Z85.818 Personal history of malignant neoplasm of other sites of lip, oral cavity, and pharynx; Z85.810 Personal history of malignant neoplasm of tongue; Z92.21 Personal history of antineoplastic chemotherapy; R79.1 Abnormal coagulation profile; R00.1 Bradycardia, unspecified; Z79.01 Long term (current) use of anticoagulants; Z88.8 Allergy status to other drugs, medicaments and biological substances; K20.9 Esophagitis, unspecified; Z79.899 Other long term (current) drug therapy; Z86.73 Personal history of transient ischemic attack (TIA), and cerebral infarction without residual deficits; R22.1 Localized swelling, mass and lump, neck; T66.XXXS Radiation sickness, unspecified, sequela; Z86.2 Personal history of diseases of the blood and blood-forming organs and certain disorders involving the immune mechanism; I11.0 Hypertensive heart disease with heart failure; Z95.2 Presence of prosthetic heart valve; Z80.8 Family history of malignant neoplasm of other organs or systems

== ENCOUNTER 2019-02-13 06:09 | Inpatient (IN) ==
--- NOTE | 2019-01-18 08:41 | History & Physical Report ---
Date of Service January 18, 2019 date of surgery: 02-13-19 Assessment & Plan (1) Osteoarthritis of left knee: Further care discussed with patient and at this point in time has failed conservative measures and would like to proceed with a left total knee replacement. Plan on discharge will be home with home health physical therapy. DVT prophyalaxis with TEDs, SCDs and will also resume his home Coumadin. Patient will have follow up appointment in our office two weeks post op for staple re moval and re-evaluation. Patient otherwise has no other questions or concerns. History of Present Illness Chief Complaint: left knee pain Primary Care Provider: Cosme Carverrebeca Ramachandran is a pleasant 78 year old male who complains of left knee pain, presents for pre-op evaluation prior to a left total knee replacement by dr Daniel at [facility]. He complains of pain, crepitus, decreased range of motion, instability and stiffness in the left knee. He states that the symptoms have been chronic and non-traumatic. Duarte states that the symptoms occur constantly with intermittent worsening. Currently the patient states that the symptoms are moderate-severe. T he pain is described as aching, sharp and throbbing. The symptoms occur continuously. The symptoms are aggravated by ascending stairs, daily activities, first steps while awake walking. Prior pain medications include Tylenol and Ibuprofen. He has been treated with multiple previous cortisone and visco injections in the past without much relief. he is currently on Coumadin which limits his NSAID use. Allergies Allergy/AdvReac Type Severity Reaction Status Date / Time allopurinol AdvReac Mild COUGH Verified 07/23/18 08:38 lisinopril AdvReac Mild COUGH Verified 07/23/18 08:38 Home Medications Home Medications Medication Instructions Recorded Confirmed Type furosemide 40 mg PO HS PRN 07/23/18 08/02/18 History losartan 100 mg PO QPM 07/23/18 08/02/18 History multivitamin 1 tab PO DAILY 07/23/18 08/02/18 History potassium chloride 20 meq PO DAILY PRN 07/23/18 08/02/18 History sennosides-docusate sodium 2 tab PO HS PRN 07/23/18 08/02/18 History [Senna-S] PreserVision AREDS 1 tab PO BID 07/27/18 08/02/18 History warfarin [Coumadin] 5 mg PO DAILY 07/27/18 08/02/18 History Past Med/Surg History Medical History Atrial fibrillation, chronic BPH (benign prostatic hyperplasia) GI bleed S/P COLONOSCOPY (DID NOT STOP COUMADIN AND BLEEDING OCCURED AFTER PROCEDURE) History of oral cancer TONGUE AND TONSIL RADIATION Hypertension Jaw fracture WIRED IN THE 60'S Transient ischemic attack (TIA) "A COUPLE OF MILD STROKES" LAST ONE OVER 1 YEAR AGO Surgical History History of cardiac cath 1994 NO STENTS History of cataract surgery RT/LEFT History of cholecystectomy History of colonoscopy History of esophagogastroduodenoscopy (EGD) History of herniorrhaphy History of surgery PEG TUBE INSERTION/REMOVAL 1998 DURING RADIATION TX FOR ORAL CANCER History of tonsillectomy History of tooth extraction Hx of transurethral resection of prostate [facility] T[employer]MENT Mitral valve [facility] REASON FOR TAKING COUMADIN Family History (Updated 01/18/19 @ 08:46 by Riky Bunn PA-C) Unknown No family history of adverse response to anesthesia Social History Preferred Language: Spanish Communication Ability: Effective Wool [place] Required: No Beliefs That Will Affect Care: None marital status: Current Living Situation: Spouse Feels Safe at Home: Yes Smoking Status: Never smoker Second Hand Exposure: No ; Hx Alcohol Use: No Hx Substance Use: No Review of Systems Review of Systems: All systems reviewed & are unremarkable except as noted in HPI & below Constitutional: no fever, no chills and no sweats Respiratory: no cough and no dyspnea Cardiovascular: no chest pain, no dyspnea and no orthopnea Gastrointestinal: no abdominal pain, no nausea and no vomiting Musculoskeletal: as per Subjective / HPI Physical Exam Physical Exam: BP: 167/72 Pulse: 56 Constitutional: WD/WN, vitals as above no acute distress Respiratory: normal respiratory effort, lungs clear to auscultation no respiratory distress, no labored breathing and does not use accessory muscles Cardiovascular: RRR, no murmur, no edema Gastrointestinal (Abdomen): normal bowel sounds, soft, nontender, no hepatosplenomegaly Musculoskeletal: Knee: + knee abnormal to inspection (Left knee: ), + effusion (+1 effusion), + surgical incision (well healed portals), + limited ROM of knee (ROM 0/3/110), + knee ROM with crepitation, + joint line tenderness (medial joint line) and + Celso's sign positive; no deformity, no skin erythema, no ecchymosis, no valgus laxity, no varus laxity, anterior drawer test negative, Liane's sign negative and pivot shift test negative Results & Data Diagnostic Findings Left Knee X-ray from May 2018 confirms advanced degenerative changes to the left knee, greatest medial compartments and patellofemoral joint, showing joint space narrowing, osteophyte formation and subchondral sclerosis. no acute bony pathology noted.
--- NOTE | 2019-01-31 22:37 | PAT Medication Instructions ---
Medication Instructions Date of Service January 31, 2019 Home Medications furosemide 40 mg PO HS PRN losartan 100 mg PO QPM multivitamin 1 tab PO DAILY potassium chloride 20 meq PO DAILY PRN sennosides-docusate sodium [Senna-S] 2 tab PO HS PRN PreserVision AREDS 1 tab PO BID warfarin [Coumadin] 5 mg PO UD ASK your prescriber and surgeon warfarin [Coumadin] 5 mg PO UD STOP taking 2 weeks before surgery PreserVision AREDS 1 tab PO BID DO NOT take the morning of surgery furosemide 40 mg PO HS PRN losartan 100 mg PO QPM multivitamin 1 tab PO DAILY potassium chloride 20 meq PO DAILY PRN sennosides-docusate sodium [Senna-S] 2 tab PO HS PRN Other Notes If you have any questions please call us at [phone] or [phone] or [phone] or [phone]
--- NOTE | 2019-02-01 11:27 | Anesthesiology Consultation ---
Date of Service February 01, 2019 Assessment & Plan (1) Encounter for pre-operative examination: PCP Clearance 01/31 = " based on the above information, examination, test results, this patient is medically stable for the planned procedure." Chart Review Chart Review: Acceptable Risk for Surgery and Patient seen in Pre Admission Testing Teaching & Discussion Instructed NPO after midnight before surgery, except medications with 15 cc of water. Medication instructions provided according to the PAT guidelines. History Surgery Operation Date: 02/13/19 07:00 Proposed Procedures p Left Total Knee Arthroplasty - Rainer Daniel DO Height/Weight Height: 6 ft Weight: 106.5 kg Allergies Allergy/AdvReac Type Severity Reaction Status Date / Time allopurinol AdvReac Mild COUGH Verified 01/28/19 11:16 lisinopril AdvReac Mild COUGH Verified 01/28/19 11:16 Medications Home Medications Medication Instructions Recorded Confirmed Last Taken furosemide 40 mg PO HS PRN 07/23/18 01/28/19 07/28/18 losartan 100 mg PO QPM 07/23/18 01/28/19 08/01/18 multivitamin 1 tab PO DAILY 07/23/18 01/28/19 07/31/18 potassium chloride 20 meq PO DAILY PRN 07/23/18 01/28/19 07/28/18 sennosides-docusate sodium 2 tab PO HS PRN 07/23/18 01/28/19 08/01/18 [Senna-S] PreserVision AREDS 1 tab PO BID 07/27/18 01/28/19 07/31/18 warfarin [Coumadin] 5 mg PO UD 07/27/18 01/28/19 07/28/18 Past Medical History Medical History (Updated 02/07/19 @ 16:54 by Jefe Holland) Anemia (Inactive) Atrial fibrillation, chronic On Warfarin BPH (benign prostatic hyperplasia) s/p TURP Bradycardia (Acute) 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 S/P valve replacement with [facility]. History of oral cancer TONGUE AND TONSIL RADIATION Hypertension Jaw fracture WIRED IN THE 'S, no residual difficulties. 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; s/p chordal rupture" History of cardiac cath 1994 NO STENTS History of cataract surgery RT/LEFT History of cholecystectomy History of colonoscopy History of esophagogastroduodenoscopy (EGD) History of herniorrhaphy History of mandibular surgery (Chronic) History of surgery PEG TUBE INSERTION/REMOVAL 1998 DURING RADIATION TX FOR ORAL CANCER History of tonsillectomy History of tooth extraction Hx of transurethral resection of prostate GREENLIGHT LASER TREATMENT S/P ERCP (Chronic) Past Anesthesia History No Hx of Anesthesia Complications and No Family Hx of Anesthesia Complications History of PONV No Hx of PONV and No Hx of Motion Sickness Social History Smoking Status: Never smoker Do You Dip or Chew Tobacco: No Hx Alcohol Use: No Hx Substance Use: No substance use type: does not use Review of Systems Pt denies any recent chest pain, shortness of breath, palpitations, fever. +"getting over a cough", being tx with ABX as of 01/31 Physical Exam Vital Signs BP: 119/68 P: 60bpm SPO2: 94% RA T: 98.8 F R: 18 ENMT Mouth: + edentulous Thyromental Distance: > or= 3.5 Finger Breadths (3.5) Mallampati Class: III Neck + short neck and + limited neck extension Respiratory normal respiratory effort Auscultation: + rhonchi (Lung bases, R>L) and + wheezes (Diffuse B/L); + lungs not clear to auscultation Cardiovascular Rate/Rhythm: regular rate; + abnormal rhythm (irreg irreg) Heart Sounds: + murmur (I/) Vessels: + carotid bruit (vs radiation from murmur) Musculoskeletal Spine: + kyphosis Testing Laboratory Results PT 33.8 Seconds (9.0-12.0) H 02/01/19 11:43 INR 3.6 (0.9-1.1) H 02/01/19 11:43 APTT 38.1 Seconds (21.0-31.0) H 02/01/19 11:43 Hemoglobin A1c 6.1 % (4.5-5.6) H 02/01/19 11:43 Blood Type O Negative 02/01/19 11:43 Antibody Screen NEGATIVE 02/01/19 11:43 01/31/19 WBC: 3.6 (normal range 3.1-9.2 per this lab) H/H: 11.9/36.3 PLATELETS: 140 SODIUM:141 POTASSIUM: 3.9 CHLORIDE: 106 CO2: 31 BUN: 15 CREATININE: 1.1 GLUCOSE: 127 Electrocardiogram Date: 01/31/19 Findings: + AFIB @ (63bpm) Inferior T wave changes are nonspecific. Chest X-Ray Date: 02/01/19 Findings: + NAD Stable cardiomegaly. Echocardiogram Date: 07/23/18 EF: 60-65% Mild concentric LVH. Severe biatrial enlargement. Aortic valve sclerosis is mild, without significant aortic valve stenosis. Mild aortic regurgitation. There is a bileaflet ([facility]) mechanical prosthesis (mitral). Prosthetic mitral valve peak and/or mean gradients are normal. There is moderate tricuspid regurgitation. The estimated systolic pulmonary artery pressure is 48 mmHg. Mild aortic root dilatation. Stress Test Date: 08/01/18 Type: nuclear Resting EF: >70% Myocardial perfusion imaging is normal. Overall left ventricular systolic function was normal without regional wall motion abnormalities.
--- NOTE | 2019-02-01 12:08 | XRay Report ---
XR chest Pre-admission PA/Lat CLINICAL HISTORY: Preoperative chest COMPARISON STUDY: 07/02/2017 FINDINGS: There are postsurgical changes of a midline sternotomy. The heart is mildly enlarged. There is no failure. There is no focal pulmonary consolidation. There are no pleural effusions.[ IMPRESSION: Stable cardiomegaly. No acute findings. Electronically signed by: Usama Spencer M.D. 02/01/2019 12:07 PM
[2019-02-01 12:57] LABS: Partial Thromboplastin Ratio 1.4; Partial Thromboplastin Time 38.1 Seconds (21.0-31.0); Prothrombin Time 33.8 Seconds (9.0-12.0)
[2019-02-01 13:04] LABS: INR 3.6 (0.9-1.1)
[2019-02-01 13:09] LABS: Estimated Average Glucose 128 mg/dl; Hemoglobin A1C 6.1 % (4.5-5.6)
[~2019-02-13 06:09] MED LIST changes: +ACETAMINOPHEN 500 MG TAB PO SCH; +CEFAZOLIN 2000MG 2,000 MG/15 ML SYR IV SCH; -CMD/25 PO; +CeleBREX 200 MG CAP PO SCH; +FAMOTIDINE 20 MG TAB PO SCH; +GABAPENTIN 300 MG CAP PO SCH; -LOSA1TAB38 PO; +LR 500ML BOLUS, THEN 15ML/HR IV SCH; -LSX20 PO; +METOCLOPRAMIDE HCL 10 MG TABLET PO SCH; -POTA1TAB97 PO; +ROPIVACAINE 0.5% HCL/PF 150 MG, BUPIVACAINE 0.5% MPF 30 ML, EPINEPHrine 30MG/30ML (OR U... INSTIL SCH; +TRANEXAMIC ACID 1,000 MG **IV Intra-op IV SCH; +TRANEXAMIC ACID 1,000 MG **IV Pre-op IV SCH; -VERA120T15 PO; -WARF-246 PO; +dexAMETHasone 4 MG TAB PO SCH
--- NOTE | 2019-02-13 07:03 | History & Physical Bridge Note ---
Date of Service February 13, 2019 History & Physical Bridge Note I have examined the patient, reviewed the History & Physical and in the interval since the performance of the History & Physical I have noted the following changes of clinical significance: no changes noted
[2019-02-13] MEDS ORDERED: fentaNYL citrate 100 MCG/2 ML VIAL ONE (07:05)
[2019-02-13] MEDS ORDERED: MIDAZOLAM HCL 1 MG/ML 2ML VIAL ONE (07:05)
[2019-02-13 07:34] LABS: INR 1.1 (0.9-1.1); Partial Thromboplastin Ratio 0.9; Partial Thromboplastin Time 25.1 Seconds (21.0-31.0); Prothrombin Time 11.4 Seconds (9.0-12.0)
[2019-02-13] MEDS ORDERED: BUPIVACAINE/EPINEPHRINE 0.25% 1:200,000 30 ML VIAL ONE (07:40)
[2019-02-13] MEDS ORDERED: BUPIVACAINE 0.5 % 5 MG/1 ML PF 10ML VIAL ONE (07:43)
[2019-02-13] MEDS ORDERED: ePHEDrine sulfate 50 MG/ML AMP IV PRN (08:02)
[2019-02-13] MEDS ORDERED: ONDANSETRON INJ 2 MG/ML 2 ML VIAL IV PRN ×2 (08:02→12:47)
[2019-02-13] MEDS ORDERED: fentaNYL citrate 100 MCG/2 ML VIAL IV PRN (08:02)
[2019-02-13] MEDS ORDERED: ATROPINE SULFATE 0.1 MG/ML 10ML SYR IV PRN (08:02)
[2019-02-13] MEDS ORDERED: ORTHO JOINT ANESTHETIC ONE (09:19)
[2019-02-13] MEDS ORDERED: BACITRACIN INJ 50,000 UNIT VIAL ONE (09:19)
[2019-02-13] MEDS ORDERED: LIDOCAINE HCL 2% 2 ML VIAL/AMP(20MG/ML) INFIL ONE (09:54)
[2019-02-13] MEDS ORDERED: PROPOFOL IV EMULSION 10 MG/ML 20 ML VIAL IV ONE ×3 (09:54→10:42)
--- NOTE | 2019-02-13 10:53 | Operative Report ---
Post Operative Report Pre & Post Diagnosis Operation Date: 02/13/19 09:00 Pre-Op Diagnosis: Unilateral Primary Osteoarthritis, Left Knee Post-Op Diagnosis: Unilateral Primary Osteoarthritis, Left Knee I identified the patient and participated in the time-out.: Yes Procedure Operation Date: 02/13/19 09:00 Actual Procedures p Left Total Knee Arthroplasty([facility] matched total knee arthroplasty size 8 femur/7 tibia 12 polyethylene 32 oval patella) - Rainer Daniel DO Surgeon Rainer Daniel DO Benefits Specialist Recruiter Mark WATKINS Estimated Blood Loss 5 Findings Consistent with Post-Op Diagnosis Patient presents with severe end-stage tricompartmental degenerative joint disease left knee no response to conservative management the above intraoperative findings no time surgery patient had eburnated bone marginal osteophytes [id number] subacute subchondral cystic changes moderate to large effusion varus alignment with eburnated bone Specimens Bone and cartilage Drains Medium bore Hemovac Anesthesia Type MAC Regional Complications none Disposition Accompanied Patient To Recovery: No Disposition: Recovery Room Indications Patient presents with severe end-stage tricompartmental degenerative joint disease left knee no response to conservative management the above intraoperative findings noted patient failed attempted corticosteroid injection Visco supplementation relative rest activity modification presents for left total knee arthroplasty. Description of Procedure After proper identification of the patient After proper prepping and draping of the left lower extremity anterior midline incision was made over the region of the extensor extensor mechanism after meticulous hemostasis was obtained and maintained in subcutaneous tissues a medial parapatellar incision was made The patella was subluxed lateralward the medial lateral gutter were cleaned from any hypertrophic synovitis and scar tissue of the distal femoral block was placed and the distal femoral osteotomy cut was made subsequently the chamfers anterior and posterior osteotomy cuts were made utilizing the 4-in-1 block the tibia was subsequently subluxed anteriorward medial and ateral meniscal remnants were excised in their entirety remnants of the anterior and posterior cruciate ligaments were excised in their entirety excellent exposure of the proximal tibia was obtained the tibial osteotomy guide was placed on the proximal tibial osteotomy cut was made once again the knee was irrigated with copious amounts of sterile saline solution the patella was subsequently everted lateralward thickened scar tissue around the patella was removed the patella was subsequently cut utilizing a freehand technique and was drilled prepared for final preparation and placement of patella socially flexion-extension gaps were checked and the equal and symmetric trials were placed to the appropriate femoral and tibial trials with poly-spacer being placed for equal flexion and extension gaps and full range of motion including extension to 0 and flexion to 140 the trial components after having been taken to recovery range of motion was subsequently removed meticulous hemostasis was obtained and maintained subsequently a knee block injection of joint cocktail including ropivacaine 0.5% 150 mg. Bupivacaine 0.5% epinephrine 1-200,030 mL's toradol 30 mg dexamethasone 4 mg ketamine 10 mg clonidine 100 micrograms normal saline solution 30 mg was infiltrated into the soft tissues of the posterior knee medial lateral gutters and periosteal synovium special attention was paid to protect neurovascular structures at all times subsequently trial components having been removed the knee was irrigated with sterile saline solution. debris was removed the proximal tibia was subsequently prepared and was made ready for the placement of the tibial component tibial component was also cemented and tamped into position the femoral component was subsequently placed and cemented in the position the patellar component was subsequently cemented in position because hemostasis once again obtained and maintained wound having been thoroughly irrigated with debridement and debridement lavage was performed as well as a medial parapatellar incision closed with #1 Vicryl in interrupted fashion subcutaneous was closed with #2 Vicryl skin was closed with skin clips. PA-C was necessary for prepping and drapping as well as wound closure of deep fascia Sub cutaneous tissue and skin and was necessary for the case. A sterile compressive dressing was placed patient was taken to recovery in stable condition of report dictated by Fredy I attest to the content of the Intraoperative Record and any orders documented therein. Any exceptions are noted below. I attest to the content of the Intraoperative Record and any orders documented therein. Any exceptions are noted below.
--- NOTE | 2019-02-13 11:46 | Anesthesiology Progress Note ---
Date of Service February 13, 2019 Anesthesia Post Procedure Vital Signs Vital Signs: Temp Pulse Pulse Resp BP Pulse Ox 02/13/19 11:40 63 18 140/79 99 02/13/19 11:32 36.1 C L 69 16 120/68 95 02/13/19 06:46 37 C 86 20 178/92 H 97 Transfer of Care Handoff Completed per policy Notes Mental Status: alert / awake / arousable Patient Amnestic to Procedure: Yes Nausea / Vomiting: adequately controlled Pain: adequately controlled Airway Patency, RR, SpO2: stable & adequate BP & HR: stable & adequate Hydration State: stable & adequate Neuraxial Anesthesia: was administered and sensory block is resolving Anesthetic Complications: no major complications apparent
--- NOTE | 2019-02-13 12:01 | XRay Report ---
XR knee LT 1 or 2V routine HISTORY: 78 years-old Male Surgical Post Op left knee total joint arthroplasty. History of degenerat fawn joint disease COMPARISON: None available TECHNIQUE: 2 views of the left knee FINDINGS: Left knee total joint arthroplasty and patellar resurfacing. Satisfactory alignment without acute fra cture or retained foreign body. Vascular calcifications are noted. Surgical drainage catheter with an terior midline skin laura. Expected postsurgical soft tissue swelling and deep tissue air. IMPRESSION: Satisfactory alignment of the left knee total joint arthroplasty. ACT 112: Negative or not required by law. The above report was generated using voice recognition software. It may contain grammatical, syntax o r spelling errors. Electronically signed by: Trevor Paul M.D. 02/13/2019 11:59 AM
[2019-02-13] MEDS ORDERED: POTASSIUM CHLORIDE 20 MEQ TABCR PO PRN (12:47)
[2019-02-13] MEDS ORDERED: bisacodyL 10 MG SUPP PR PRN (12:47)
[2019-02-13] MEDS ORDERED: NALOXONE HCL 0.4 MG/1 ML VIAL/CARP IV PRN (12:47)
[2019-02-13] MEDS ORDERED: MAGNESIUM HYDROXIDE SUSP 30 ML UDC PO PRN (12:47)
[2019-02-13] MEDS: SODIUM CHLORIDE 0.9% 1000ML 1,000 ML IV SCH ×2 (13:39→23:36)
[2019-02-13] MEDS: ACETAMINOPHEN 500 MG TAB PO SCH ×2 (13:39→21:42)
[2019-02-13] MEDS ORDERED: HydrALAZINE HCL 20 MG/ML VIAL IV PRN (14:01)
[2019-02-13] MEDS: OXYCODONE HCL IR 5 MG TAB (IMMEDIATE RELEASE) PO PRN ×3 (14:22→20:57)
--- NOTE | 2019-02-13 15:47 | Hospitalist Consultation ---
Date of Consultation February 13, 2019 Assessment & Plan (1) Osteoarthritis of left knee: - S/p left TKA today, doing well. - Pain control per primary team. - DVT ppx with Lovenox bridging, will also resume Coumadin this evening. - PT/OT for discharge planning. - Monitor CBC to evaluate for acute blood loss anemia. (2) Anticoagulated on warfarin: - Due to h/o mechanical valve and chronic A. fib. - Currently receiving Lovenox bridging per Coumadin clinic in [place], [place]. - Resume Coumadin per instructions (based on documentation from Coumadin clinic) --> 10 mg on 02/13 and 02/14 then 7.5 mg on 02/15 then start home dosing of 2.5 mg qMonFri and 5 mg every other day. - F/u with Coumadin clinic is scheduled on 02/26/19. (3) H/O mitral valve replacement with mechanical valve: - Monitored as outpatient. (4) Chronic atrial fibrillation: - On Warfarin therapy as noted above. - Not currently on beta megan. (5) History of lower GI bleeding: - Following polyp removal during colonoscopy in 2015. (6) Hypertension: - Continue Amlodipine 5 mg daily; holding home Losartan during operative period. - Hydralazine IV prn. (7) History of oral cancer: - Followed as outpatient, currently in remission. (8) CVA (cerebral vascular accident): - H/o, occurred in 2016. - Monitored as outpatient - not currently on statin or ASA agent. (9) BPH (benign prostatic hyperplasia): - S/p TURP. - Continue Terazosin as prescribed. - Monitor for urinary retention in post op period. (10) Prediabetes: - Hgb A1C was 6.1 -- recommend carb consistent diet and weight loss. - F/u with PCP to discuss lifestyle modifications. (11) DVT prophylaxis: - SCDs; Lovenox and Coumadin. Dispo: Will continue to follow, please call with any questions. Supervising Physician Co-Signing Physician Notes Attending Attestation and Consult Note: PT seen/examined, chart reviewed, care plan d/w JUNE Escobar. I agree w/ the [place] components of her consult documentation. 78yo male with h/o PAF, mech mitral valve, HTN - presented for elective left TKR. I saw the patient post-op on surgical floor. He was resting comfortably and eating dinner. Denied cp, dyspnea, abd pain, nausea. PMH, PSH, allergies, meds, sochx, famhx, ros - reviewed VSS, afebrile gen - NAD heart - RRR, s1, s2, mech valve closure sound LLSB lungs - CTA b/l abd - soft NT ext - no edema musculo - left knee in large ARELI wrap, drain in place A/P: 1. s/p left TKR 2. mech mitral valve - agree with lovenox bridge w/ coumadin; start both when ok with ortho; coumadin dosing per coumadin clinic recommendations 3. PAF - appears to be in NSR based on clinical exam 4. at risk of acute blood loss anemia - check CBC in am 5. HTN - BPs acceptable at this time other plans per Ms Escobar Fausto Miranda MD History of Present Illness Reason for Consultation: Medical Management Attending Physician: Rainer Daniel DO History of Present Illness Mr. Matson is a 78 year old male with past medical history of chronic A. fib, BPH s/p TURP, CVA in Mar 2016, GI bleed following polyp removal during colonoscopy in 2016, Mitral valve replacement, oral cancer, HTN, CAD, Prediabetes, HTN presented for a planned left TKA. He is doing well post op -- denies urinary retention, chest pain, SOB, N/V. Allergies Allergy/AdvReac Type Severity Reaction Status Date / Time allopurinol AdvReac Mild COUGH Verified 02/13/19 06:41 lisinopril AdvReac Mild COUGH Verified 02/13/19 06:41 Home Medications Home Medications Medication Instructions Recorded Confirmed Type furosemide 40 mg PO HS PRN 07/23/18 02/13/19 History losartan 100 mg PO QPM 07/23/18 02/13/19 History multivitamin 1 tab PO DAILY 07/23/18 02/13/19 History potassium chloride 20 meq PO DAILY PRN 07/23/18 02/13/19 History sennosides-docusate sodium 2 tab PO HS PRN 07/23/18 02/13/19 History [Senna-S] PreserVision AREDS 1 tab PO BID 07/27/18 02/13/19 History warfarin [Coumadin] 5 mg PO UD 07/27/18 02/13/19 History amlodipine 5 mg PO DAILY 02/13/19 02/13/19 History mirtazapine 15 mg PO DAILY 02/13/19 02/13/19 History terazosin 2 mg PO HS 02/13/19 02/13/19 History acetaminophen 1,000 mg PO Q8 #100 tab 02/16/19 Rx oxycodone 5 - 10 mg PO Q4H PRN #20 tab 02/16/19 Rx warfarin [Coumadin] 2.5 mg PO MoFr@1600 #10 tab 02/16/19 Rx warfarin [Coumadin] 5 mg PO SuTuWeThSa@1600 #20 tab 02/16/19 Rx Patient History Medical History Anemia (Inactive) Atrial fibrillation, chronic On Warfarin BPH (benign prostatic hyperplasia) s/p TURP Bradycardia (Acute) 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 S/P valve replacement with [facility]. History of oral cancer TONGUE AND TONSIL RADIATION Hypertension Jaw fracture WIRED IN THE 'S, no residual difficulties. Osteoarthritis of left knee Transient ischemic attack (TIA) "A COUPLE OF MILD STROKES" LAST ONE OVER 1 YEAR AGO Surgical History H/O mitral valve replacement with mechanical valve (Chronic) "1994; s/p chordal rupture" History of cardiac cath 1994 NO STENTS History of cataract surgery RT/LEFT History of cholecystectomy History of colonoscopy History of esophagogastroduodenoscopy (EGD) History of herniorrhaphy History of mandibular surgery (Chronic) History of surgery PEG TUBE INSERTION/REMOVAL 1998 DURING RADIATION TX FOR ORAL CANCER History of tonsillectomy History of tooth extraction Hx of transurethral resection of prostate GREENLIGHT LASER TREATMENT S/P ERCP (Chronic) Family History Unknown No family history of adverse response to anesthesia Social History Preferred Language: Argentine Communication Ability: Effective 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 Beliefs That Will Affect Care: None marital status: Current Living Situation: Spouse Other Information That Helps Us Care for You: No Feels Safe at Home: Yes Safety Concerns: Feels Safe At This Time Smoking Status: Never smoker Do You Dip or Chew Tobacco: No ; Second Hand Exposure: No ; Hx Alcohol Use: No Hx Substance Use: No Review of Systems Review of Systems: All systems reviewed & are unremarkable except as noted in HPI & below Constitutional: no fever, no chills, no fatigue and no weakness Respiratory: no cough, no dyspnea and no dyspnea on exertion Cardiovascular: no chest pain, no palpitations and no edema Gastrointestinal: + constipation; no abdominal pain and no nausea Genitourinary: no difficulty urinating Musculoskeletal: + joint pain; no back pain Integumentary: no non-healing lesions Physical Exam Physical Exam: General: Resting comfortably HEENT: NC/AT; PERRLA with EOMI; [place] conjunctiva, MMM. No erythema of posterior pharynx Neck: Supple and nontender Cardiac: RRR Lungs: 2L via NC; CTA bilaterally Abdomen: Bowel normoactive X 4; Nontender to palpation Extremities: Warm. No edema present Neuro: No focal weakness Skin: No rash Results & Data Vital Signs (Past 12 Hours) Vital Signs Temp Pulse Pulse Resp BP Pulse Ox 02/13/19 14:37 36.5 C 70 16 155/93 H 98 02/13/19 13:50 36.4 C L 70 18 164/96 H 96 02/13/19 12:35 36.4 C L 57 L 18 168/98 H 100 02/13/19 12:15 58 L 22 152/86 H 98 02/13/19 12:00 36.4 C L 63 18 163/93 H 98 02/13/19 11:50 64 18 149/91 H 93 02/13/19 11:40 63 18 140/79 99 02/13/19 11:32 36.1 C L 69 16 120/68 95 02/13/19 06:46 37 C 86 20 178/92 H 97 Laboratory Results 02/13/19 Range/Units 06:57 PT 11.4 (9.0-12.0) Seconds INR 1.1 (0.9-1.1) APTT 25.1 (21.0-31.0) Seconds PTT Ratio 0.9 PG Care Time/CCT Total # of Minutes Spent Total Time Spent with Patient: Total time spent is greater than 50% in coordination of care (as documented) at patient's floor/unit and/or counseling patient:
[2019-02-13] MEDS ORDERED: WARFARIN SOD 5 MG TAB PO SCH (16:00)
[2019-02-13] MEDS: WARFARIN SOD 10 MG TAB PO SCH (16:25)
[2019-02-13] MEDS: CEFAZOLIN 2000MG 2,000 MG/15 ML SYR IV SCH (16:27)
[2019-02-13] MEDS: FERROUS GLUCONATE 324 MG TAB PO SCH (17:35)
[2019-02-13] MEDS: SENNA 8.6 MG TAB PO SCH (20:56)
[2019-02-13] MEDS: DOCUSATE SODIUM 100 MG CAP PO SCH (20:57)
[2019-02-13] MEDS ORDERED: LOSARTAN POTASSIUM 50 MG TAB PO SCH (21:00)
[2019-02-13] MEDS ORDERED: NON-FORMULARY MEDICATION (Vitamins A,C,E-Zinc-Copper [Preservision Areds] 1 TAB) PO SCH (21:00)
[2019-02-13] MEDS: HYDROmorphone INJ 0.5 MG/0.5 ML SYR IV PRN (22:51)
[2019-02-14] MEDS: OXYCODONE HCL IR 5 MG TAB (IMMEDIATE RELEASE) PO PRN ×5 (01:09→20:40)
[2019-02-14] MEDS: CEFAZOLIN 2000MG 2,000 MG/15 ML SYR IV SCH (01:09)
[2019-02-14] MEDS: ACETAMINOPHEN 500 MG TAB PO SCH ×3 (05:43→21:09)
[2019-02-14 06:18] LABS: Hematocrit (blood only) 30.5 % (42-52); Hemoglobin 9.7 g/dL (14.0-18.0); Mean Corpuscular Hemoglobin 28.8 pg (25-34); Mean Corpuscular Hgb Conc 31.8 g/dL (32-36); Mean Corpuscular Volume 90.5 fL (80-100); Mean Platelet Volume 9.9 fL (7.4-10.4); Platelet Count 136 K/uL (130-400); Red Blood Count 3.37 M/uL (4.7-6.1); White Blood Count 10.74 K/uL (4.8-10.8)
[2019-02-14 06:28] LABS: INR 1.2 (0.9-1.1); Prothrombin Time 12.5 Seconds (9.0-12.0)
[2019-02-14 06:50] LABS: BUN Creatinine Ratio 13.3 (10-20); Calcium 8.2 mg/dl (8.5-10.1); Est GFR (African American) 63.7; Est GFR (Non-African American) 54.9
[2019-02-14] MEDS: FERROUS GLUCONATE 324 MG TAB PO SCH ×2 (08:03→17:58)
[2019-02-14] MEDS: AMLODIPINE BESYLATE 5 MG TAB PO SCH (08:33)
[2019-02-14] MEDS: DOCUSATE SODIUM 100 MG CAP PO SCH ×2 (08:33→21:05)
[2019-02-14] MEDS: MULTIVITAMIN TAB PO SCH (08:33)
[2019-02-14] MEDS: MIRTAZAPINE TAB 15 MG TAB PO SCH (08:33)
[2019-02-14] MEDS ORDERED: ENOXAPARIN 100 MG/1ML SYR SQ SCH (09:00)
[2019-02-14] MEDS: LOSARTAN POTASSIUM 50 MG TAB PO SCH (09:26)
--- NOTE | 2019-02-14 09:41 | Orthopedic Progress Note ---
Date of Service February 14, 2019 Assessment & Plan (1) S/P total knee arthroplasty: POD#1 left TKA -Pain management -DVT prophylaxis-Coumadin with lovenox bridging. INR this am 1.2 -PT/OT -AM labs-Hemoglobin at 9.7 from 11.8 preop labs -D/C planning -likely home with PT when stable Subjective Patient resting in bed comfortably. States he was doing well but had a lot of pain when he got up to walk around. Pain is controlled with pain medication. No other complaints. Denies chest pain, sob, dizziness, light headedness. Review of Systems Review of Systems: All systems reviewed & are unremarkable except as noted in HPI & below Physical Exam Physical Exam: Left knee: Dressing is c/d/i, toes mobile, good dorsiflexion. No calf tenderness. Sensation and n/v status intact. Results & Data Vital Signs (Past 12 Hours) Vital Signs Temp Pulse Resp BP Pulse Ox 02/14/19 07:17 36.6 C 50 L 18 121/72 96 02/14/19 03:40 36.6 C 42 L 16 115/67 94 02/13/19 23:40 36.7 C 51 L 16 113/66 94 02/13/19 22:47 66 18 122/68 94 Laboratory Results H & H 02/14/19 Range/Units 06:00 Hgb 9.7 L (14.0-18.0) g/dL Hct 30.5 L (42-52) % Coagulation 02/01/19 02/13/19 02/14/19 Range/Units 11:43 06:57 06:00 INR 3.6 H 1.1 1.2 H (0.9-1.1)
--- NOTE | 2019-02-14 13:46 | Hospitalist Progress Note ---
Date of Service February 14, 2019 Assessment & Plan (1) Osteoarthritis of left knee: - S/p left TKA on 1218, POD#1. - Pain control per primary team. - DVT ppx with Lovenox bridging & Coumadin. - PT/OT for discharge planning - possible discharge to home tomorrow. - Monitor CBC - trending down as expected. Monitor daily. (2) Anticoagulated on warfarin: - Due to h/o mechanical valve and chronic A. fib. - Currently receiving Lovenox bridging per Coumadin clinic in [place], [place]. - Resume Coumadin per instructions (based on documentation from Coumadin clinic) --> 10 mg on 02/13 and 02/14 then 7.5 mg on 02/15 then start home dosing of 2.5 mg qMonFri and 5 mg every other day. - F/u with Coumadin clinic is scheduled on 02/26/19. (3) H/O mitral valve replacement with mechanical valve: - Monitored as outpatient. (4) Chronic atrial fibrillation: - On Warfarin therapy as noted above. - Not currently on beta megan. (5) History of lower GI bleeding: - Following polyp removal during colonoscopy in 2015. (6) Hypertension: - Continue Amlodipine 5 mg daily & Losartan as prescribed. - Hydralazine IV prn. (7) History of oral cancer: - Followed as outpatient, currently in remission. (8) CVA (cerebral vascular accident): - H/o, occurred in 2017. - Monitored as outpatient - not currently on statin or ASA agent. (9) BPH (benign prostatic hyperplasia): - S/p TURP. - Continue Terazosin as prescribed. - No evidence of urinary retention in post op period. (10) Prediabetes: - Hgb A1C was 6.1 -- recommend carb consistent diet and weight loss. - F/u with PCP to discuss lifestyle modifications. (11) DVT prophylaxis: - SCDs; Lovenox and Coumadin Dispo: Pt. is medically stable, will sign off. Please call with any questions. Supervising Physician Co-Signing Physician Notes Attending Attestation: Chart reviewed in detail, care plan d/w JUNE Escobar. I agree w/ the [place] components of her documentation. POD #1 - s/p left TKR On lovenox bridge w/ coumadin for mech mitral valve Mild acute blood loss anemia Will need serial CBCs and INRs on daily basis Fausto Miranda MD Subjective Pt is doing well overall. Pain is controlled. Is passing gas, no BM yet. POD 4 Currently sitting in bed and eating breakfast. Pain controlled. Denies any shortness of breath or chest pain at this time. No other complaints at this time. Hoping to go home today. Review of Systems Review of Systems: All systems reviewed & are unremarkable except as noted in HPI & below Constitutional: no fever, no chills, no fatigue and no weakness Respiratory: no cough, no dyspnea and no dyspnea on exertion Cardiovascular: no chest pain, no palpitations and no edema Gastrointestinal: + constipation; no abdominal pain and no nausea Genitourinary: no difficulty urinating Musculoskeletal: + joint pain; no back pain Physical Exam Physical Exam: General: Resting comfortably HEENT: NC/AT; PERRLA with EOMI; [place] conjunctiva, MMM. No erythema of posterior pharynx Neck: Supple and nontender Cardiac: RRR Lungs: CTA bilaterally Abdomen: Bowel normoactive X 4; Nontender to palpation Extremities: Warm. No edema present. Dressing in place over LLE. Neuro: No focal weakness Skin: No rash Results & Data Vital Signs (Past 12 Hours) Vital Signs Temp Pulse Resp BP Pulse Ox 02/14/19 11:17 36.7 C 56 L 18 101/54 L 94 02/14/19 07:17 36.6 C 50 L 18 121/72 96 02/14/19 03:40 36.6 C 42 L 16 115/67 94 Laboratory Results 02/14/19 02/14/19 02/14/19 Range/Units 06:00 06:00 06:00 WBC 10.74 (4.8-10.8) K/uL RBC 3.37 L (4.7-6.1) M/uL Hgb 9.7 L (14.0-18.0) g/dL Hct 30.5 L (42-52) % MCV 90.5 (80-100) fL MCH 28.8 (25-34) pg MCHC 31.8 L (32-36) g/dL RDW Std Deviation 49.0 H (36.4-46.3) fL RDW Coeff of Maxine 15.0 H (11.5-14.5) % Plt Count 136 (130-400) K/uL MPV 9.9 (7.4-10.4) fL PT 12.5 H (9.0-12.0) Seconds INR 1.2 H (0.9-1.1) Sodium 140 (136-145) mmol/L Potassium 4.0 (3.5-5.1) mmol/L Chloride 109 H (98-107) mmol/L Carbon Dioxide 27 (21-32) mmol/L Anion Gap 4.0 (3-11) BUN 17 (7-18) mg/dl Creatinine 1.24 (0.6-1.4) mg/dl Est Cr Clr Drug Dosing 60.0 ml/min Est GFR ( Amer) 63.7 Est GFR (Non-Af Amer) 54.9 BUN/Creatinine Ratio 13.3 (10-20) Glucose 164 H (70-99) mg/dl Calcium 8.2 L (8.5-10.1) mg/dl PG Care Time/CCT Total # of Minutes Spent Total Time Spent with Patient: Total time spent is greater than 50% in coordination of care (as documented) at patient's floor/unit and/or counseling patient:
[2019-02-14] MEDS: WARFARIN SOD 10 MG TAB PO SCH (15:52)
[2019-02-14] MEDS: TERAZOSIN HCL 1 MG CAP PO SCH (21:05)
[2019-02-14] MEDS: ENOXAPARIN 100 MG/1ML SYR SQ SCH (21:07)
[2019-02-14] MEDS: SENNA 8.6 MG TAB PO SCH (21:08)
[2019-02-15] MEDS: OXYCODONE HCL IR 5 MG TAB (IMMEDIATE RELEASE) PO PRN ×3 (04:24→16:26)
[2019-02-15] MEDS: ACETAMINOPHEN 500 MG TAB PO SCH ×3 (05:34→22:00)
[2019-02-15] MEDS: HYDROmorphone INJ 0.5 MG/0.5 ML SYR IV PRN ×3 (05:35→19:00)
[2019-02-15 06:03] LABS: Hematocrit (blood only) 29.2 % (42-52); Hemoglobin 9.1 g/dL (14.0-18.0); Mean Corpuscular Hemoglobin 28.5 pg (25-34); Mean Corpuscular Hgb Conc 31.2 g/dL (32-36); Mean Corpuscular Volume 91.5 fL (80-100); Mean Platelet Volume 9.9 fL (7.4-10.4); Platelet Count 106 K/uL (130-400); RDW Coefficient of Variation 15.5 % (11.5-14.5); RDW Standard Deviation 52.6 fL (36.4-46.3); Red Blood Count 3.19 M/uL (4.7-6.1); White Blood Count 6.14 K/uL (4.8-10.8)
[2019-02-15 06:12] LABS: INR 2.1 (0.9-1.1); Prothrombin Time 20.8 Seconds (9.0-12.0)
[2019-02-15] MEDS: DOCUSATE SODIUM 100 MG CAP PO SCH ×2 (07:58→20:09)
[2019-02-15] MEDS: ENOXAPARIN 100 MG/1ML SYR SQ SCH (07:59)
[2019-02-15] MEDS: LOSARTAN POTASSIUM 50 MG TAB PO SCH (07:59)
[2019-02-15] MEDS: MULTIVITAMIN TAB PO SCH (07:59)
[2019-02-15] MEDS: FERROUS GLUCONATE 324 MG TAB PO SCH ×2 (07:59→16:30)
[2019-02-15] MEDS: AMLODIPINE BESYLATE 5 MG TAB PO SCH (08:00)
[2019-02-15] MEDS: MIRTAZAPINE TAB 15 MG TAB PO SCH (08:00)
--- NOTE | 2019-02-15 11:02 | Orthopedic Progress Note ---
Date of Service February 15, 2019 Assessment & Plan (1) S/P total knee arthroplasty: POD#2 left TKA -Pain management -DVT prophylaxis-Coumadin with lovenox bridging. INR this am 2.1. I spoke with Sejal Avina PA-C this morning about his general status and his INR. Plan to keep the drain in 1 more day due to anticoagulation. With INR being 2.1, we will discontinue the Lovenox and keep the INR between 2 and 3. -PT/OT -AM labs-Hemoglobin at 9.1 from 11.8 preop labs -D/C planning -likely home with PT when stable Subjective POD 2 Initially saw patient ambulating in the hallway with physical therapy. Currently now lying in bed. Initially sleeping but easily awoken. Having some pain after PT. Denies any shortness of breath or chest pain at this time. We discussed keeping his drains in for another day due to him being on Lovenox and Coumadin. No other complaints at this time. Physical Exam Physical Exam: Cherelle dressing with scant drainage. Hemovac drain with 75 mL's from this morning's end of shift. Calves are soft and nontender. Neurovascular intact. Toes are mobile. Results & Data Vital Signs (Past 12 Hours) Vital Signs Temp Pulse Resp BP BP Pulse Ox 02/15/19 07:58 80 97/61 L 02/15/19 05:38 36.5 C 62 16 104/66 92 02/14/19 23:40 90/50 L 02/14/19 23:37 36.4 C L 49 L 16 85/44 L 96 Laboratory Results Laboratory Results WBC 6.14 K/uL (4.8-10.8) 02/15/19 05:48 RBC 3.19 M/uL (4.7-6.1) L 02/15/19 05:48 Hgb 9.1 g/dL (14.0-18.0) L 02/15/19 05:48 Hct 29.2 % (42-52) L 02/15/19 05:48 MCV 91.5 fL (80-100) 02/15/19 05:48 MCH 28.5 pg (25-34) 02/15/19 05:48 MCHC 31.2 g/dL (32-36) L 02/15/19 05:48 RDW Std Deviation 52.6 fL (36.4-46.3) H 02/15/19 05:48 RDW Coeff of Maxine 15.5 % (11.5-14.5) H 02/15/19 05:48 Plt Count 106 K/uL (130-400) L 02/15/19 05:48 MPV 9.9 fL (7.4-10.4) 02/15/19 05:48 PT 20.8 Seconds (9.0-12.0) H 02/15/19 05:48 INR 2.1 (0.9-1.1) H 02/15/19 05:48 APTT 25.1 Seconds (21.0-31.0) 02/13/19 06:57 PTT Ratio 0.9 02/13/19 06:57 Sodium 140 mmol/L (136-145) 02/14/19 06:00 Potassium 4.0 mmol/L (3.5-5.1) 02/14/19 06:00 Chloride 109 mmol/L (98-107) H 02/14/19 06:00 Carbon Dioxide 27 mmol/L (21-32) 02/14/19 06:00 Anion Gap 4.0 (3-11) 02/14/19 06:00 BUN 17 mg/dl (7-18) 02/14/19 06:00 Creatinine 1.24 mg/dl (0.6-1.4) 02/14/19 06:00 Est Cr Clr Drug Dosing 60.0 ml/min 02/14/19 06:00 Est GFR ( Amer) 63.7 02/14/19 06:00 Est GFR (Non-Af Amer) 54.9 02/14/19 06:00 BUN/Creatinine Ratio 13.3 (10-20) 02/14/19 06:00 Glucose 164 mg/dl (70-99) H 02/14/19 06:00 Estimat Average Glucose 128 mg/dl 02/01/19 11:43 Hemoglobin A1c 6.1 % (4.5-5.6) H 02/01/19 11:43 Calcium 8.2 mg/dl (8.5-10.1) L 02/14/19 06:00 Blood Type O Negative 02/01/19 11:43 Antibody Screen NEGATIVE 02/01/19 11:43
--- NOTE | 2019-02-15 15:15 | XRay Report ---
XR chest 2V PA/lateral HISTORY: hypoxia, rule out PNA vs pulm edema COMPARISON: Chest 02/01/2019. FINDINGS: The heart remains mildly enlarged. There are poststernotomy changes. The left lung is clear . Patchy right medial lung base airspace opacity. This is new from the prior study. No pleural effusi ons. No pneumothorax. IMPRESSION: 1. Patchy right medial lung base airspace opacity. This likely represents a pneumonia. One-month ches t x-ray follow-up is recommended to ensure resolution. 2. Stable mild cardiomegaly. ACT 112: Positive. There are findings on this exam that require communication between the performing entity and the patient following Patient Test Result Information Act ([place] Act 112) guidelines. Electronically signed by: Makr Abdullahi M.D. 02/15/2019 3:14 PM
--- NOTE | 2019-02-15 15:18 | Hospitalist Progress Note ---
Date of Service February 15, 2019 Assessment & Plan (1) Osteoarthritis of left knee: - S/p left TKA on 02/13, POD#2. - Pain control per primary team. - DVT ppx with home Coumadin; d/c Lovenox bridging. - PT/OT for discharge planning. - Monitor CBC - below baseline as expected but stable. (2) PNA (pneumonia): - CXR showed patchy right medial lung base opacity concerning for PNA; hypoxia noted this afternoon, now requiring 2L via NC. - Also has nonproductive cough prior to admission - likely related to community acquired infection. - Will start Ceftriaxone and Azithromycin for empiric coverage. - IS q1hr WA, Flutter valve TID; Mucinex 1200 mg BID scheduled and Duonebs q6hr prn wheezing/SOB. - Will need f/u CXR in 1 month to evaluate for resolution of opacity. (3) Hypoxia: - Requiring 2L via NC this afternoon - related to PNA, see above. (4) Anticoagulated on warfarin: - Due to h/o mechanical valve and chronic A. fib. - Currently receiving home Coumadin; can d/c Lovenox bridging as INR was therapeutic. - Resumed Coumadin per instructions (based on documentation from Coumadin clinic) --> 10 mg on 02/13 and 02/14 then 7.5 mg on 02/15 then start home dosing of 2.5 mg qMonFri and 5 mg every other day. - F/u with Coumadin clinic is scheduled on 02/26/19. (5) H/O mitral valve replacement with mechanical valve: - Monitored as outpatient. (6) Chronic atrial fibrillation: - On Warfarin therapy as noted above. - Not currently on beta megan. (7) History of lower GI bleeding: - Following polyp removal during colonoscopy in 2015. (8) Hypertension: - BP has been intermittently low -- hold home Amlodipine and Losartan. (9) History of oral cancer: - Followed as outpatient, currently in remission. (10) CVA (cerebral vascular accident): - H/o, occurred in 2017. - Monitored as outpatient - not currently on statin or ASA agent. (11) BPH (benign prostatic hyperplasia): - S/p TURP. - Continue Terazosin as prescribed. - No evidence of urinary retention in post op period. (12) Prediabetes: - Hgb A1C was 6.1 -- recommend carb consistent diet and weight loss. - F/u with PCP to discuss lifestyle modifications. (13) Acute blood loss anemia: - Hgb trending down post op -- will continue to monitor. (14) Thrombocytopenia: - Plt count 106 -- will continue anticoagulation and monitor CBC daily. (15) DVT prophylaxis: - SCDs; Coumadin Dispo: Will continue to follow, recommend to monitor over next 24 hours. Supervising Physician Co-Signing Physician Notes Attending Attestation: Chart reviewed in detail, care plan d/w PA Sejal Escobar. I agree w/ the [place] components of her documentation. POD #2 - s/p left TKR On lovenox bridge w/ coumadin for mech mitral valve; INR today 2.1 Mild acute blood loss anemia - follow Recheck CBC/INR am possible CAP - cough, hypoxia, etc - start rocephin/zithromax (cough symptoms started PRIOR to hospitalization) Fausto Miranda MD Subjective Pt. had decreasing O2 sats this morning with crackles in bilat lung bases. Now requiring 2L via NC. He takes Lasix intermittently at home. Pt. reports he has had a dry cough at home over the last year. He has not noticed an increased cough over last few days prior to admission. Denies chest pain, sputum production, SOB, fever/chills. CXR showed opacity concerning for PNA - will start coverage for community acquired PNA. Review of Systems Review of Systems: All systems reviewed & are unremarkable except as noted in HPI & below Constitutional: no fever, no chills, no fatigue, no weakness and no anorexia Respiratory: + cough and + wheezing; no chest congestion, no dyspnea, no dyspnea on exertion and no sputum production Cardiovascular: no chest pain, no palpitations and no edema Gastrointestinal: + constipation; no abdominal pain and no nausea Genitourinary: no difficulty urinating Musculoskeletal: + joint pain; no back pain Integumentary: no non-healing lesions Physical Exam Physical Exam: General: Resting comfortably HEENT: NC/AT; PERRLA with EOMI; [place] conjunctiva, MMM. No erythema of posterior pharynx Neck: Supple and nontender Cardiac: RRR Lungs: 2L via NC; rhonchi and wheezing in bilat lower lung muir. Abdomen: Bowel normoactive X 4; Nontender to palpation Extremities: Warm. No edema present Neuro: No focal weakness Skin: No rash Results & Data Vital Signs (Past 12 Hours) Vital Signs Temp Pulse Resp BP Pulse Ox 02/15/19 13:41 37 C 81 16 155/79 H 86 L 02/15/19 07:58 80 97/61 L 02/15/19 05:38 36.5 C 62 16 104/66 92 Laboratory Results 02/15/19 02/15/19 Range/Units 05:48 05:48 WBC 6.14 (4.8-10.8) K/uL RBC 3.19 L (4.7-6.1) M/uL Hgb 9.1 L (14.0-18.0) g/dL Hct 29.2 L (42-52) % MCV 91.5 (80-100) fL MCH 28.5 (25-34) pg MCHC 31.2 L (32-36) g/dL RDW Std Deviation 52.6 H (36.4-46.3) fL RDW Coeff of Maxine 15.5 H (11.5-14.5) % Plt Count 106 L (130-400) K/uL MPV 9.9 (7.4-10.4) fL PT 20.8 H (9.0-12.0) Seconds INR 2.1 H (0.9-1.1) PG Care Time/CCT Total # of Minutes Spent Total Time Spent with Patient: Total time spent is greater than 50% in coordination of care (as documented) at patient's floor/unit and/or counseling patient:
[2019-02-15] MEDS ORDERED: ALBUT/IPRATROP 3MG/0.5MG NEB 3 ML VIAL NEB PRN (15:56)
[2019-02-15] MEDS ORDERED: WARFARIN SOD 7.5 MG TAB PO SCH (16:00)
[2019-02-15] MEDS: cefTRIAXone SODIUM 2,000 MG in DEXTROSE 5% 50 ML IV SCH (16:29)
[2019-02-15] MEDS ORDERED: AZITHROMYCIN 500 MG in DEXTROSE 5% 250 ML IV ONE (16:30)
[2019-02-15] MEDS: SENNA 8.6 MG TAB PO SCH (20:08)
[2019-02-15] MEDS: guaiFENesin 600 MG TABCR PO SCH (20:08)
[2019-02-15] MEDS: TERAZOSIN HCL 1 MG CAP PO SCH (20:09)
[2019-02-16] MEDS: ACETAMINOPHEN 500 MG TAB PO SCH ×3 (06:11→22:36)
[2019-02-16 06:36] LABS: Hematocrit (blood only) 25.5 % (42-52); Mean Corpuscular Hemoglobin 28.9 pg (25-34); Mean Corpuscular Hgb Conc 31.4 g/dL (32-36); Mean Corpuscular Volume 92.1 fL (80-100); Mean Platelet Volume 10.1 fL (7.4-10.4); Platelet Count 113 K/uL (130-400); RDW Coefficient of Variation 15.3 % (11.5-14.5); RDW Standard Deviation 52.1 fL (36.4-46.3); Red Blood Count 2.77 M/uL (4.7-6.1); White Blood Count 5.98 K/uL (4.8-10.8)
[2019-02-16 06:55] LABS: Prothrombin Time 36.8 Seconds (9.0-12.0)
[2019-02-16 07:09] LABS: BUN Creatinine Ratio 18.8 (10-20); Calcium 7.9 mg/dl (8.5-10.1); Creatinine Clr Calc Pharmacy 48.3 ml/min; Est GFR (Non-African American) 42.3; Potassium 3.7 mmol/L (3.5-5.1)
[2019-02-16] MEDS: OXYCODONE HCL IR 5 MG TAB (IMMEDIATE RELEASE) PO PRN ×4 (07:49→20:46)
[2019-02-16] MEDS ORDERED: SODIUM CHLORIDE 0.9% 1000ML 500 ML IV ONE (08:06)
--- NOTE | 2019-02-16 08:46 | Orthopedic Progress Note ---
Date of Service February 16, 2019 Assessment & Plan (1) S/P total knee arthroplasty: POD#3 left TKA -Pain management -DVT prophylaxis-Coumadin with lovenox bridging. INR this am 2.1. I spoke with Sejal Avina PA-C this morning about his general status and his INR. With INR being 2.1, we will discontinue the Lovenox and keep the INR between 2 and 3. -PT/OT -D/C planning - home with HH today. Subjective POD 3 Currently now lying in bed. Having some pain after PT but overall controlled. Denies any shortness of breath or chest pain at this time. No other complaints at this time. Physical Exam Constitutional: WD/WN, vitals as above no acute distress Musculoskeletal: Knee: + surgical incision (left knee: dressing C/D/I.) and + surgical drain present (decreased drainage over the past 24 hours.); knee normal to inspection, no skin erythema and no ecchymosis Neurologic: normal touch/pain/proprioception Psychiatric: A+Ox3, euthymic affect Speech: normal rate/rhythm/volume of speech Results & Data Vital Signs (Past 12 Hours) Vital Signs Temp Pulse Resp BP Pulse Ox 02/16/19 07:05 36.7 C 80 18 103/67 94 02/15/19 23:14 36.7 C 73 16 108/69 94
[2019-02-16] MEDS: guaiFENesin 600 MG TABCR PO SCH ×2 (08:52→20:42)
[2019-02-16] MEDS: MIRTAZAPINE TAB 15 MG TAB PO SCH (08:52)
[2019-02-16] MEDS: DOCUSATE SODIUM 100 MG CAP PO SCH ×2 (08:52→20:43)
[2019-02-16] MEDS: MULTIVITAMIN TAB PO SCH (08:52)
[2019-02-16] MEDS: AZITHROMYCIN 250 MG TAB PO SCH (08:52)
[2019-02-16] MEDS: FERROUS GLUCONATE 324 MG TAB PO SCH ×2 (08:53→16:01)
[2019-02-16] MEDS: cefTRIAXone SODIUM 2,000 MG in DEXTROSE 5% 50 ML IV SCH (08:58)
[2019-02-16] MEDS: HYDROmorphone INJ 0.5 MG/0.5 ML SYR IV PRN (09:03)
[2019-02-16] MEDS ORDERED: ALBUT/IPRATROP 3MG/0.5MG NEB 3 ML VIAL NEB SCH (12:00)
[2019-02-16 13:45] LABS: Appearance Urine Clear (Clear); Bacteria Urine Automated Negative (Negative); Bilirubin Urine Negative (Negative); Blood Urine Negative (Negative); Color Urine Dark Yellow; Epithelial Cell Urine Auto >30 /lpf (0-5); Glucose Urine UA Negative (Negative); Ketones Urine Trace (Negative); Leukocyte Esterase Urine Trace (Negative); Nitrite Urine Negative (Negative); Protein Urine 1+ (Negative); RBC Urine Automated 0-4 /hpf (0-4); Specific Gravity Urine 1.033 (1.000-1.030); Urobilinogen Urine Negative (Negative)
--- NOTE | 2019-02-16 13:56 | Hospitalist Progress Note ---
Date of Service February 16, 2019 Assessment & Plan (1) Osteoarthritis of left knee: - S/p left TKA on 02/13, POD#3. - Pain control per primary team. - DVT ppx with home Coumadin. - PT/OT - discharge to home once medically stable. (2) PNA (pneumonia): - CXR showed patchy right medial lung base opacity concerning for PNA; hypoxia is resolved after starting abx. - Nonproductive cough prior to admission - likely related to community acquired infection. - Continue Ceftriaxone IV and Azithromycin PO. - IS q1hr WA, Flutter valve TID; Mucinex 1200 mg BID scheduled and Duonebs q6hr ATC. - Will need f/u CXR in 1 month to evaluate for resolution of opacity. (3) Hypoxia: - Required 2L via NC on 02/15, now improved to room air. - Related to pneumonia as noted above. (4) Acute renal failure: - Rise in Cr, was 1.54 this morning; baseline ~0.8-0.9. - Possibly related to urinary obstruction vs. dehydration vs. post op ATN in setting of anemia. - U/a pending to evaluate for cast cells (ATN?) vs. infection. - Received 500 cc bolus this morning for IV fluid hydration. - Bladder scan q6hr and straight cath for PVR >300 cc. - Repeat BMP this afternoon at 4 pm then monitor daily. (5) Urinary retention: - Bladder scanned for 180 cc this afternoon, was able to void post scan ~125 cc. - Bladder scan q6hr and straight cath for PVR >300 cc. (6) BPH (benign prostatic hyperplasia): - S/p TURP. - Continue Terazosin as prescribed. - Urinary retention as noted above. (7) Acute blood loss anemia: - Hgb trending down, was 8.0 this morning. Related to post op period. - Will repeat CBC at 5 pm, transfuse if hgb <8. (8) Anticoagulated on warfarin: - Due to h/o mechanical valve and chronic A. fib. - Currently receiving home Coumadin; d/c'ed Lovenox bridging. - Resumed Coumadin (per documentation from Coumadin clinic) --> scheduled to receive home dosing of 2.5 mg qMonFri and 5 mg every other day. INR was 4.0 -- will hold evening dose of Coumadin and re-evaluate on 02/17. - F/u with Coumadin clinic is scheduled on 02/26/19. (9) H/O mitral valve replacement with mechanical valve: - Monitored as outpatient. (10) Chronic atrial fibrillation: - On Warfarin therapy as noted above. - Not currently on beta megan. (11) History of lower GI bleeding: - Following polyp removal during colonoscopy in 2016. (12) Hypertension: - Holding Amlodipine and Losartan due to hypotension (and ARB due to ARF) (13) History of oral cancer: - Followed as outpatient, currently in remission. (14) CVA (cerebral vascular accident): - H/o, occurred in 2017. - Monitored as outpatient - not currently on statin or ASA agent. (15) Prediabetes: - Hgb A1C was 6.1 -- recommend carb consistent diet and weight loss. - F/u with PCP to discuss lifestyle modifications. (16) Thrombocytopenia: - Plt count <150 -- continue to monitor. (17) DVT prophylaxis: - SCDs; Holding Coumadin due to supratherapeutic INR. Dispo: Will continue to follow, recommend to observe over next 24 hours. Supervising Physician Co-Signing Physician Notes Attending Attestation: Chart reviewed in detail, care plan d/w PA Sejal Escobar. I agree w/ the [place] components of her documentation. POD #3 - s/p left TKR On lovenox bridge [facility]; INR today 4; hold coumadin; lovenox has been d/c Moderate acute blood loss anemia - follow; agree w/ repeat CBC tonight possible CAP - continue rocephin/zithromax (cough symptoms started PRIOR to hospitalization) Fausto Miranda MD Subjective Pt. is stable on room air. Has non-productive cough, denies chest pain or SOB. Had a BM this morning. C/o urinary retention -- voided early this morning but has not voided since then to obtain urinalysis. Bladder scanned for 180 cc, was able to eventually void ~125 cc. Will continue to monitor urine output. Hgb trending down and acute renal failure noted on labs. Review of Systems Review of Systems: All systems reviewed & are unremarkable except as noted in HPI & below Constitutional: + fatigue and + weakness; no fever, no chills and no anorexia Respiratory: no cough, no dyspnea, no dyspnea on exertion and no wheezing Cardiovascular: no chest pain, no palpitations and no edema Gastrointestinal: no abdominal pain, no nausea and no constipation Genitourinary: + difficulty urinating; no dysuria and no hematuria Musculoskeletal: + joint pain; no back pain Integumentary: no non-healing lesions Physical Exam Physical Exam: General: Resting comfortably HEENT: NC/AT; PERRLA with EOMI; [place] conjunctiva, MMM. No erythema of posterior pharynx Neck: Supple and nontender Cardiac: RRR Lungs: room air; rhonchi and wheezing in lower lung muir. Abdomen: Bowel normoactive X 4; Nontender to palpation Extremities: Warm. No edema present Neuro: No focal weakness Skin: No rash Results & Data Vital Signs (Past 12 Hours) Vital Signs Temp Pulse Resp BP Pulse Ox 02/16/19 11:24 84 18 97 02/16/19 09:16 36.7 C 80 18 103/67 94 02/16/19 07:05 36.7 C 80 18 103/67 94 Laboratory Results 02/16/19 02/16/19 02/16/19 Range/Units 13:10 06:25 06:25 WBC (4.8-10.8) K/uL RBC (4.7-6.1) M/uL Hgb (14.0-18.0) g/dL Hct (42-52) % MCV (80-100) fL MCH (25-34) pg MCHC (32-36) g/dL RDW Std Deviation (36.4-46.3) fL RDW Coeff of Maxine (11.5-14.5) % Plt Count (130-400) K/uL MPV (7.4-10.4) fL PT 36.8 H (9.0-12.0) Seconds INR 4.0 H (0.9-1.1) Sodium 138 (136-145) mmol/L Potassium 3.7 (3.5-5.1) mmol/L Chloride 108 H (98-107) mmol/L Carbon Dioxide 28 (21-32) mmol/L Anion Gap 2.0 L (3-11) BUN 29 H (7-18) mg/dl Creatinine 1.54 H (0.6-1.4) mg/dl Est Cr Clr Drug Dosing 48.3 ml/min Est GFR ( Amer) 49.0 Est GFR (Non-Af Amer) 42.3 BUN/Creatinine Ratio 18.8 (10-20) Glucose 134 H (70-99) mg/dl Calcium 7.9 L (8.5-10.1) mg/dl Urine Color Pending Urine Appearance Pending Urine pH Pending Ur Specific [place] Pending Urine Protein Pending Urine Glucose (UA) Pending Urine Ketones Pending Urine Blood Pending Urine Nitrite Pending Urine Bilirubin Pending Urine Urobilinogen Pending Ur Leukocyte Esterase Pending 02/16/19 Range/Units 06:25 WBC 5.98 (4.8-10.8) K/uL RBC 2.77 L (4.7-6.1) M/uL Hgb 8.0 L (14.0-18.0) g/dL Hct 25.5 L (42-52) % MCV 92.1 (80-100) fL MCH 28.9 (25-34) pg MCHC 31.4 L (32-36) g/dL RDW Std Deviation 52.1 H (36.4-46.3) fL RDW Coeff of Maxine 15.3 H (11.5-14.5) % Plt Count 113 L (130-400) K/uL MPV 10.1 (7.4-10.4) fL PT (9.0-12.0) Seconds INR (0.9-1.1) Sodium (136-145) mmol/L Potassium (3.5-5.1) mmol/L Chloride (98-107) mmol/L Carbon Dioxide (21-32) mmol/L Anion Gap (3-11) BUN (7-18) mg/dl Creatinine (0.6-1.4) mg/dl Est Cr Clr Drug Dosing ml/min Est GFR ( Amer) Est GFR (Non-Af Amer) BUN/Creatinine Ratio (10-20) Glucose (70-99) mg/dl Calcium (8.5-10.1) mg/dl Urine Color Urine Appearance Urine pH Ur Specific [place] Urine Protein Urine Glucose (UA) Urine Ketones Urine Blood Urine Nitrite Urine Bilirubin Urine Urobilinogen Ur Leukocyte Esterase PG Care Time/CCT Total # of Minutes Spent Total Time Spent with Patient: Total time spent is greater than 50% in coordination of care (as documented) at patient's floor/unit and/or counseling patient:
[2019-02-16] MEDS ORDERED: WARFARIN SOD 5 MG TAB PO SCH ×2 (16:00)
[2019-02-16 16:37] LABS: Hematocrit (blood only) 26.9 % (42-52); Hemoglobin 8.5 g/dL (14.0-18.0); Mean Corpuscular Hgb Conc 31.6 g/dL (32-36); Mean Corpuscular Volume 91.8 fL (80-100); Mean Platelet Volume 11.1 fL (7.4-10.4); Platelet Count 136 K/uL (130-400); RDW Coefficient of Variation 15.6 % (11.5-14.5); RDW Standard Deviation 52.6 fL (36.4-46.3); Red Blood Count 2.93 M/uL (4.7-6.1); White Blood Count 6.82 K/uL (4.8-10.8)
[2019-02-16 16:46] LABS: BUN Creatinine Ratio 19.1 (10-20); Calcium 7.9 mg/dl (8.5-10.1); Creatinine Clr Calc Pharmacy 46.8 ml/min; Est GFR (African American) 47.2; Est GFR (Non-African American) 40.7; Potassium 3.5 mmol/L (3.5-5.1)
[2019-02-16] MEDS: SODIUM CHLORIDE 0.9% 1000ML 1,000 ML IV SCH (17:41)
[2019-02-16] MEDS: ALBUT/IPRATROP 3MG/0.5MG NEB 3 ML VIAL NEB SCH (19:46)
[2019-02-16] MEDS: SENNA 8.6 MG TAB PO SCH (20:42)
[2019-02-16] MEDS: TERAZOSIN HCL 1 MG CAP PO SCH (20:43)
[2019-02-17] MEDS: ALBUT/IPRATROP 3MG/0.5MG NEB 3 ML VIAL NEB SCH ×4 (00:55→19:29)
[2019-02-17] MEDS: ACETAMINOPHEN 500 MG TAB PO SCH ×3 (05:17→22:36)
[2019-02-17 05:59] LABS: Hematocrit (blood only) 24.4 % (42-52); Hemoglobin 7.7 g/dL (14.0-18.0); Mean Corpuscular Hemoglobin 28.7 pg (25-34); Mean Corpuscular Hgb Conc 31.6 g/dL (32-36); Mean Platelet Volume 10.3 fL (7.4-10.4); Platelet Count 119 K/uL (130-400); RDW Coefficient of Variation 15.4 % (11.5-14.5); Red Blood Count 2.68 M/uL (4.7-6.1); White Blood Count 4.96 K/uL (4.8-10.8)
[2019-02-17 06:17] LABS: Prothrombin Time 35.6 Seconds (9.0-12.0)
[2019-02-17 06:24] LABS: INR 3.8 (0.9-1.1)
[2019-02-17] MEDS: SODIUM CHLORIDE 0.9% 1000ML 1,000 ML IV SCH (06:32)
[2019-02-17 06:33] LABS: BUN Creatinine Ratio 20.6 (10-20); Calcium 8.2 mg/dl (8.5-10.1); Est GFR (African American) 63.7; Est GFR (Non-African American) 54.9; Potassium 3.6 mmol/L (3.5-5.1)
[2019-02-17] MEDS: cefTRIAXone SODIUM 2,000 MG in DEXTROSE 5% 50 ML IV SCH (07:38)
[2019-02-17] MEDS: OXYCODONE HCL IR 5 MG TAB (IMMEDIATE RELEASE) PO PRN ×2 (07:40→20:15)
[2019-02-17] MEDS: guaiFENesin 600 MG TABCR PO SCH ×2 (07:42→20:11)
[2019-02-17] MEDS: AZITHROMYCIN 250 MG TAB PO SCH (07:42)
[2019-02-17] MEDS: MIRTAZAPINE TAB 15 MG TAB PO SCH (07:42)
[2019-02-17] MEDS: MULTIVITAMIN TAB PO SCH (07:42)
[2019-02-17] MEDS: FERROUS GLUCONATE 324 MG TAB PO SCH ×2 (07:43→17:47)
[2019-02-17] MEDS: DOCUSATE SODIUM 100 MG CAP PO SCH ×2 (07:43→20:12)
[2019-02-17] MEDS ORDERED: SODIUM CHLORIDE 0.9% 250 ML IV PRN ×2 (08:16→09:03)
--- NOTE | 2019-02-17 08:25 | Orthopedic Progress Note ---
Date of Service February 17, 2019 Assessment & Plan (1) S/P total knee arthroplasty: POD#4 left TKA Post operative anemia with continued trend down in Hgb. Improved kidney function labs. -Pain management -DVT prophylaxis-Coumadin. INR elevated again today so Coumadin will be held. -Transfuse 2 units PRBC today. Recheck CBC after transfusion. -PT/OT -D/C planning - possible home with HH later this evening if CBC improved and BUN/Creatinine remain stable. D/C Hemovac today. Subjective POD 4 Currently sitting in bed and eating breakfast. Pain controlled. Denies any shortness of breath or chest pain at this time. No other complaints at this time. Hoping to go home today. Physical Exam Constitutional: WD/WN, vitals as above no acute distress Musculoskeletal: Knee: + surgical incision (left knee: dressing C/D/I.) and + surgical drain present (decreased drainage over the past 24 hours.); knee normal to inspection, no skin erythema and no ecchymosis Neurologic: normal touch/pain/proprioception Psychiatric: A+Ox3, euthymic affect Speech: normal rate/rhythm/volume of speech Results & Data Vital Signs (Past 12 Hours) Vital Signs Temp Pulse Resp BP Pulse Ox 02/17/19 07:16 74 18 97 02/17/19 00:55 67 14 94 02/16/19 23:19 36.6 C 60 16 114/64 97 Laboratory Results Laboratory Tests 02/17/19 02/17/19 02/17/19 05:34 05:34 05:34 Hgb 7.7 L Hct 24.4 L PT 35.6 H INR 3.8 H BUN 26 H Creatinine 1.24 D
--- NOTE | 2019-02-17 11:46 | Hospitalist Progress Note ---
Date of Service February 17, 2019 Assessment & Plan (1) Osteoarthritis of left knee: - S/p left TKA on 02/13, POD#4. - Pain control per primary team. - DVT ppx - holding home Coumadin due to supratherapeutic INR and acute bleeding following removal of hemovac drain. - PT/OT - discharge to home once medically stable. (2) PNA (pneumonia): - CXR showed patchy right medial lung base opacity concerning for PNA; hypoxia is now resolved, lungs CTA on exam. - Nonproductive cough prior to admission - likely related to community acquired infection. - Continue Ceftriaxone IV and Azithromycin PO. - IS q1hr WA, Flutter valve TID; Mucinex 1200 mg BID scheduled and Duonebs q6hr ATC. - Recommend f/u CXR in 1 month to evaluate for resolution of opacity. (3) Hypoxia: - Required 2L via NC on 02/15, now stable on room air. - Related to pneumonia as noted above. (4) Acute renal failure: - Rise in Cr to 1.5 on 02/16, baseline ~0.8-0.9. Creatinine improving on AM labs. - Possibly related to urinary obstruction vs. dehydration vs. post op ATN in setting of anemia. - U/a neg for cast cells to indicate ATN. - Improved with IV fluids -- may be prerenal related to dehydration; will d/c IV fluids to avoid volume overload. - Concern for urinary retention -- see below. - Bladder scan q6hr and straight cath as needed. - Monitor renal function daily. (5) Urinary retention: - Concern for urinary retention in setting of bladder scan >150 cc. - Now improved -- is voiding ~125-150 cc throughout the day. - Continue to monitor -- bladder scan and straight cath if indicated. (6) BPH (benign prostatic hyperplasia): - S/p TURP. - Continue Terazosin as prescribed. - Urinary retention as noted above. (7) Acute blood loss anemia: - Hgb trending down, was 7.7 this morning - possibly related to slow bleed at surgical site in setting of supratherapeutic INR vs. partially dilutional related to IV fluids. - Will transfuse 2 units pRBCs. - Repeat H/H this evening then daily. (8) Anticoagulated on warfarin: - Due to h/o mechanical valve and chronic A. fib. - INR was 3.8 this morning; has acute bleeding at site of hemovac drain removal site -- apply pressure dressing. - Held Coumadin last evening, will hold dose again tonight; consider resuming on 02/18 if INR is <3.5 (goal 2.5-3.5) - On Coumadin 2.5 mg qMF and 5 mg every other day at home; also received pre and post op Lovenox bridging. - F/u with Coumadin clinic is scheduled on 02/26/19 but recommend closer follow up if discharged to home tomorrow. (9) H/O mitral valve replacement with mechanical valve: - Monitored as outpatient. (10) Chronic atrial fibrillation: - On Warfarin therapy as noted above. - Not currently on beta megan. (11) History of lower GI bleeding: - Following polyp removal during colonoscopy in 2015. (12) Hypertension: - Hold Amlodipine and Losartan due to hypotension (and ARB due to ARF) (13) History of oral cancer: - Followed as outpatient, currently in remission. (14) CVA (cerebral vascular accident): - H/o, occurred in 2017. - Monitored as outpatient - not currently on statin or ASA agent. (15) Prediabetes: - Hgb A1C was 6.1 -- recommend carb consistent diet and weight loss. - F/u with PCP to discuss lifestyle modifications. (16) Thrombocytopenia: - Plt count <150 -- continue to monitor. (17) DVT prophylaxis: - SCDs; Hold Coumadin due to supratherapeutic INR. Dispo: Will observe over next 24 hours. Discussed with ortho -- can discharge on Monday if INR is stable and bleeding is resolved. Supervising Physician Co-Signing Physician Notes Attending Attestation: Chart reviewed in detail, care plan d/w JUNE Escobar. I agree w/ the [place] components of her documentation. POD #4 - s/p left TKR mech mitral valve; INR today 3.8; hold coumadin once again with INR am; INR target 2.5 to 3.5 Moderate acute blood loss anemia - Tx 2 units PRBCs probable CAP - continue rocephin/zithromax (cough symptoms started PRIOR to hospitalization); would wean to PO antibiotics tomorrow JENNY - improving Fausto Miranda MD Subjective Drain was removed this morning; pt has had increased bleeding from site following removal, very minimal improvement with pressure dressing. Transfusing 2 units pRBCs. INR was also elevated, 3.8 on morning labs. Will hold Coumadin dose this evening. He c/o knee pain post op but is otherwise doing well. Denies chest pain or SOB. Is having BMs. Denies urinary retention -- is voiding 125-150 cc throughout the day. Review of Systems Review of Systems: All systems reviewed & are unremarkable except as noted in HPI & below Constitutional: no fever, no chills, no fatigue, no weakness and no anorexia Respiratory: no cough, no dyspnea and no dyspnea on exertion Cardiovascular: no chest pain, no palpitations and no edema Gastrointestinal: no abdominal pain, no nausea and no constipation Genitourinary: no difficulty urinating and no decreased urination Musculoskeletal: + joint pain; no back pain Integumentary: no non-healing lesions Hematologic / Lymphatic: + problem reported (Bleeding from site of previous drain in left knee. ) Physical Exam Physical Exam: General: Resting comfortably HEENT: NC/AT; PERRLA with EOMI; [place] conjunctiva, MMM. No erythema of posterior pharynx Neck: Supple and nontender Cardiac: RRR Lungs: on room air; CTA throughout. Abdomen: Bowel normoactive X 4; Nontender to palpation Extremities: Warm. No edema present Neuro: No focal weakness Skin: No rash Results & Data Vital Signs (Past 12 Hours) Vital Signs Temp Pulse Pulse Resp BP Pulse Ox 02/17/19 11:07 36.7 C 84 18 153/77 H 95 02/17/19 11:05 36.9 C 76 16 129/79 95 02/17/19 10:49 36.9 C 83 18 145/81 H 02/17/19 07:16 74 18 97 02/17/19 00:55 67 14 94 Laboratory Results 02/17/19 02/17/19 02/17/19 Range/Units 09:27 05:34 05:34 WBC (4.8-10.8) K/uL RBC (4.7-6.1) M/uL Hgb (14.0-18.0) g/dL Hct (42-52) % MCV (80-100) fL MCH (25-34) pg MCHC (32-36) g/dL RDW Std Deviation (36.4-46.3) fL RDW Coeff of Maxine (11.5-14.5) % Plt Count (130-400) K/uL MPV (7.4-10.4) fL PT 35.6 H (9.0-12.0) Seconds INR 3.8 H (0.9-1.1) Sodium 139 (136-145) mmol/L Potassium 3.6 (3.5-5.1) mmol/L Chloride 107 (98-107) mmol/L Carbon Dioxide 27 (21-32) mmol/L Anion Gap 5.0 (3-11) BUN 26 H (7-18) mg/dl Creatinine 1.24 D (0.6-1.4) mg/dl Est Cr Clr Drug Dosing 60.0 ml/min Est GFR ( Amer) 63.7 Est GFR (Non-Af Amer) 54.9 BUN/Creatinine Ratio 20.6 H (10-20) Glucose 154 H (70-99) mg/dl Calcium 8.2 L (8.5-10.1) mg/dl Urine Color Urine Appearance (Clear) Urine pH (4.5-7.5) Ur Specific [place] (1.000-1.030) Urine Protein (Negative) Urine Glucose (UA) (Negative) Urine Ketones (Negative) Urine Blood (Negative) Urine Nitrite (Negative) Urine Bilirubin (Negative) Urine Urobilinogen (Negative) Ur Leukocyte Esterase (Negative) Urine WBC (Auto) (0-5) /hpf Urine RBC (Auto) (0-4) /hpf U Hyaline Cast (Auto) U Epithel Cells (Auto) (0-5) /lpf Urine Bacteria (Auto) (Negative) Blood Type O Negative Antibody Screen NEGATIVE Crossmatch See Detail 02/17/19 02/16/19 02/16/19 Range/Units 05:34 16:00 16:00 WBC 4.96 6.82 (4.8-10.8) K/uL RBC 2.68 L 2.93 L (4.7-6.1) M/uL Hgb 7.7 L 8.5 L (14.0-18.0) g/dL Hct 24.4 L 26.9 L (42-52) % MCV 91.0 91.8 (80-100) fL MCH 28.7 29.0 (25-34) pg MCHC 31.6 L 31.6 L (32-36) g/dL RDW Std Deviation 51.0 H 52.6 H (36.4-46.3) fL RDW Coeff of Maxine 15.4 H 15.6 H (11.5-14.5) % Plt Count 119 L 136 (130-400) K/uL MPV 10.3 11.1 H (7.4-10.4) fL PT (9.0-12.0) Seconds INR (0.9-1.1) Sodium 137 (136-145) mmol/L Potassium 3.5 (3.5-5.1) mmol/L Chloride 106 (98-107) mmol/L Carbon Dioxide 26 (21-32) mmol/L Anion Gap 6.0 (3-11) BUN 30 H (7-18) mg/dl Creatinine 1.59 H (0.6-1.4) mg/dl Est Cr Clr Drug Dosing 46.8 ml/min Est GFR ( Amer) 47.2 Est GFR (Non-Af Amer) 40.7 BUN/Creatinine Ratio 19.1 (10-20) Glucose 187 H (70-99) mg/dl Calcium 7.9 L (8.5-10.1) mg/dl Urine Color Urine Appearance (Clear) Urine pH (4.5-7.5) Ur Specific [place] (1.000-1.030) Urine Protein (Negative) Urine Glucose (UA) (Negative) Urine Ketones (Negative) Urine Blood (Negative) Urine Nitrite (Negative) Urine Bilirubin (Negative) Urine Urobilinogen (Negative) Ur Leukocyte Esterase (Negative) Urine WBC (Auto) (0-5) /hpf Urine RBC (Auto) (0-4) /hpf U Hyaline Cast (Auto) U Epithel Cells (Auto) (0-5) /lpf Urine Bacteria (Auto) (Negative) Blood Type Antibody Screen Crossmatch 02/16/19 Range/Units 13:10 WBC (4.8-10.8) K/uL RBC (4.7-6.1) M/uL Hgb (14.0-18.0) g/dL Hct (42-52) % MCV (80-100) fL MCH (25-34) pg MCHC (32-36) g/dL RDW Std Deviation (36.4-46.3) fL RDW Coeff of Maxine (11.5-14.5) % Plt Count (130-400) K/uL MPV (7.4-10.4) fL PT (9.0-12.0) Seconds INR (0.9-1.1) Sodium (136-145) mmol/L Potassium (3.5-5.1) mmol/L Chloride (98-107) mmol/L Carbon Dioxide (21-32) mmol/L Anion Gap (3-11) BUN (7-18) mg/dl Creatinine (0.6-1.4) mg/dl Est Cr Clr Drug Dosing ml/min Est GFR ( Amer) Est GFR (Non-Af Amer) BUN/Creatinine Ratio (10-20) Glucose (70-99) mg/dl Calcium (8.5-10.1) mg/dl Urine Color Dark Yellow Urine Appearance Clear (Clear) Urine pH 5.0 (4.5-7.5) Ur Specific [place] 1.033 H (1.000-1.030) Urine Protein 1+ H (Negative) Urine Glucose (UA) Negative (Negative) Urine Ketones Trace H (Negative) Urine Blood Negative (Negative) Urine Nitrite Negative (Negative) Urine Bilirubin Negative (Negative) Urine Urobilinogen Negative (Negative) Ur Leukocyte Esterase Trace H (Negative) Urine WBC (Auto) 5-10 H (0-5) /hpf Urine RBC (Auto) 0-4 (0-4) /hpf U Hyaline Cast (Auto) Not Reportable U Epithel Cells (Auto) >30 H (0-5) /lpf Urine Bacteria (Auto) Negative (Negative) Blood Type Antibody Screen Crossmatch PG Care Time/CCT Total # of Minutes Spent Total Time Spent with Patient: Total time spent is greater than 50% in coordination of care (as documented) at patient's floor/unit and/or counseling patient:
[2019-02-17 18:27] LABS: Hematocrit (blood only) 29.2 % (42-52); Hemoglobin 9.5 g/dL (14.0-18.0); Mean Corpuscular Hemoglobin 29.4 pg (25-34); Mean Corpuscular Hgb Conc 32.5 g/dL (32-36); Mean Corpuscular Volume 90.4 fL (80-100); Mean Platelet Volume 11.2 fL (7.4-10.4); Platelet Count 207 K/uL (130-400); RDW Coefficient of Variation 15.3 % (11.5-14.5); RDW Standard Deviation 50.6 fL (36.4-46.3); Red Blood Count 3.23 M/uL (4.7-6.1); White Blood Count 10.15 K/uL (4.8-10.8)
[2019-02-17] MEDS: TERAZOSIN HCL 1 MG CAP PO SCH (20:12)
[2019-02-17] MEDS: SENNA 8.6 MG TAB PO SCH (20:12)
[2019-02-18] MEDS: ALBUT/IPRATROP 3MG/0.5MG NEB 3 ML VIAL NEB SCH ×2 (01:35→07:20)
[2019-02-18] MEDS: ACETAMINOPHEN 500 MG TAB PO SCH ×2 (05:30→13:13)
[2019-02-18] MEDS: OXYCODONE HCL IR 5 MG TAB (IMMEDIATE RELEASE) PO PRN ×2 (05:30→10:24)
[2019-02-18 05:46] LABS: Hematocrit (blood only) 23.1 % (42-52); Hemoglobin 7.6 g/dL (14.0-18.0); Mean Corpuscular Hgb Conc 32.9 g/dL (32-36); Mean Corpuscular Volume 91.3 fL (80-100); Mean Platelet Volume 10.6 fL (7.4-10.4); Platelet Count 153 K/uL (130-400); RDW Coefficient of Variation 15.4 % (11.5-14.5); Red Blood Count 2.53 M/uL (4.7-6.1)
[2019-02-18 06:04] LABS: Prothrombin Time 35.9 Seconds (9.0-12.0)
[2019-02-18 06:14] LABS: INR 3.9 (0.9-1.1)
[2019-02-18 06:16] LABS: BUN Creatinine Ratio 22.1 (10-20); Calcium 7.7 mg/dl (8.5-10.1); Creatinine Clr Calc Pharmacy 69.5 ml/min; Est GFR (African American) 76.1; Est GFR (Non-African American) 65.7; Potassium 3.4 mmol/L (3.5-5.1)
--- NOTE | 2019-02-18 08:11 | Orthopedic Progress Note ---
Date of Service February 18, 2019 Assessment & Plan (1) S/P total knee arthroplasty: POD#5 left TKA will d/c home later today with HH, will recheck H/H and INR tomorrow. -Pain management -DVT prophylaxis-Coumadin/DENNIS/SCD- Coumadin held yesterday, will hold today and have INR drawn tomorrow. -Transfused 2 units PRBC on 02/17/19 -PT/OT Subjective POD 5 resting in bed, pain currently well controlled. he denies CP/SOB, denies fever/chills. Physical Exam Physical Exam: Vital Signs Temp 36.8 C 02/18/19 05:54 Pulse 79 02/18/19 07:20 Resp 18 02/18/19 07:20 BP 153/80 H 02/18/19 05:54 Pulse Ox 96 02/18/19 07:20 Intake & Output 02/17/19 02/18/19 02/18/19 18:59 06:59 18:59 Intake Total 1690.000 / 1890.00 0 200 / 1890.000 Output Total 500 / 950 450 / 950 Balance 1190.000 / 940.000 -250 / 940.000 Intake: IV 1070.000 / 1070.00 0 Nss 1000ML 1,0 00 ml @ 80 mls/hr 1000.000 / 1000.00 0 IV [id number] SC H Rx#:[id number] Rocephin 2,000 mg In D5w 50 ml 70 / 70 @ 100 mls/hr I V DAILY [facility] Rx#: [id number] Oral 200 / 200 Intake (Blood Pr oduct) Amt 620 / 620 Packed Cells, Leukoreduced 310 / 310 Unit [id number] Packed Cells, Leukoreduced 310 / 310 Unit [id number] Output: Urine 500 / 950 450 / 950 Constitutional: WD/WN, vitals as above no acute distress Musculoskeletal: left knee: elisabet dressing in place, moderate ecchymosis noted to the left knee and lower leg. calf SNT, able to wiggle toes and ankle no difficulty, NVDI. sensation intact to light touch, DP palpable. Results & Data Vital Signs (Past 12 Hours) Vital Signs Temp Pulse Resp BP Pulse Ox 02/18/19 07:20 79 18 96 02/18/19 05:54 36.8 C 74 14 153/80 H 94 02/17/19 23:38 36.4 C L 84 14 114/64 95 Laboratory Results Laboratory Results WBC 5.80 K/uL (4.8-10.8) 02/18/19 05:10 RBC 2.53 M/uL (4.7-6.1) L 02/18/19 05:10 Hgb 7.6 g/dL (14.0-18.0) L 02/18/19 05:10 Hct 23.1 % (42-52) L 02/18/19 05:10 MCV 91.3 fL (80-100) 02/18/19 05:10 MCH 30.0 pg (25-34) 02/18/19 05:10 MCHC 32.9 g/dL (32-36) 02/18/19 05:10 RDW Std Deviation 51.0 fL (36.4-46.3) H 02/18/19 05:10 RDW Coeff of Maxine 15.4 % (11.5-14.5) H 02/18/19 05:10 Plt Count 153 K/uL (130-400) 02/18/19 05:10 MPV 10.6 fL (7.4-10.4) H 02/18/19 05:10 PT 35.9 Seconds (9.0-12.0) H 02/18/19 05:10 INR 3.9 (0.9-1.1) H 02/18/19 05:10 APTT 25.1 Seconds (21.0-31.0) 02/13/19 06:57 PTT Ratio 0.9 02/13/19 06:57 Sodium 139 mmol/L (136-145) 02/18/19 05:10 Potassium 3.4 mmol/L (3.5-5.1) L 02/18/19 05:10 Chloride 108 mmol/L (98-107) H 02/18/19 05:10 Carbon Dioxide 28 mmol/L (21-32) 02/18/19 05:10 Anion Gap 3.0 (3-11) 02/18/19 05:10 BUN 24 mg/dl (7-18) H 02/18/19 05:10 Creatinine 1.07 mg/dl (0.6-1.4) 02/18/19 05:10 Est Cr Clr Drug Dosing 69.5 ml/min 02/18/19 05:10 Est GFR ( Amer) 76.1 02/18/19 05:10 Est GFR (Non-Af Amer) 65.7 02/18/19 05:10 BUN/Creatinine Ratio 22.1 (10-20) H 02/18/19 05:10 Glucose 150 mg/dl (70-99) H 02/18/19 05:10 Estimat Average Glucose 128 mg/dl 02/01/19 11:43 Hemoglobin A1c 6.1 % (4.5-5.6) H 02/01/19 11:43 Calcium 7.7 mg/dl (8.5-10.1) L 02/18/19 05:10 Urine Color Dark Yellow 02/16/19 13:10 Urine Appearance Clear (Clear) 02/16/19 13:10 Urine pH 5.0 (4.5-7.5) 02/16/19 13:10 Ur Specific [place] 1.033 (1.000-1.030) H 02/16/19 13:10 Urine Protein 1+ (Negative) H 02/16/19 13:10 Urine Glucose (UA) Negative (Negative) 02/16/19 13:10 Urine Ketones Trace (Negative) H 02/16/19 13:10 Urine Blood Negative (Negative) 02/16/19 13:10 Urine Nitrite Negative (Negative) 02/16/19 13:10 Urine Bilirubin Negative (Negative) 02/16/19 13:10 Urine Urobilinogen Negative (Negative) 02/16/19 13:10 Ur Leukocyte Esterase Trace (Negative) H 02/16/19 13:10 Urine WBC (Auto) 5-10 /hpf (0-5) H 02/16/19 13:10 Urine RBC (Auto) 0-4 /hpf (0-4) 02/16/19 13:10 U Hyaline Cast (Auto) Not Reportable 02/16/19 13:10 U Epithel Cells (Auto) >30 /lpf (0-5) H 02/16/19 13:10 Urine Bacteria (Auto) Negative (Negative) 02/16/19 13:10 Blood Type O Negative 02/17/19 09:27 Antibody Screen NEGATIVE 02/17/19 09:27 Crossmatch See Detail 02/17/19 09:27
[2019-02-18] MEDS: MIRTAZAPINE TAB 15 MG TAB PO SCH (08:18)
[2019-02-18] MEDS: AZITHROMYCIN 250 MG TAB PO SCH (08:19)
[2019-02-18] MEDS: MULTIVITAMIN TAB PO SCH (08:19)
[2019-02-18] MEDS: guaiFENesin 600 MG TABCR PO SCH (08:19)
[2019-02-18] MEDS: FERROUS GLUCONATE 324 MG TAB PO SCH (08:19)
[2019-02-18] MEDS: DOCUSATE SODIUM 100 MG CAP PO SCH (08:19)
[2019-02-18] MEDS: cefTRIAXone SODIUM 2,000 MG in DEXTROSE 5% 50 ML IV SCH (08:23)
[2019-02-18 12:16] LABS: Hemoglobin 7.7 g/dL (14.0-18.0)
--- NOTE | 2019-02-18 12:42 | Hospitalist Progress Note ---
Date of Service February 18, 2019 Assessment & Plan (1) Osteoarthritis of left knee: - S/P L TKA on 02/13 - Pain, PT/OT, Surgical management per primary team - DVT prophylaxis - holding Coumadin due to supratherapeutic INR - PT/OT - home with services (2) Acute blood loss anemia: - Hgb 7.7 on 02/17 and transfused 2 units PRBCs - Hgb increased to 9.5 now currently at 7.7 again - baseline anemia present and seems to run 8-9 on average - Likely surgical losses and possibly losses due to bleeding at surgical site and partially dilutional - Asymptomatic from counts - denies SOB/CP/Dizziness/Weakness - AM lab ordered and likely this can be monitored - did have a Hgb reading in June 2018 around 7.5 due to hematomas/knee (3) PNA (pneumonia): - CXR with patchy R medial lung base opacity - possibly PNA - saturations adequate on RA - recommend F/U CXR x 1 month to evaluate for resolution -- Nonproductive cough prior to admission - possibility of CAP? vs atelectasis - Continue Rocephin 2 g IV daily - can likely convert to Cefdinir on D/C to complete a total of 7 days; Zithromax to complete course on 02/20 - Pulmonary toilet; Mucinex BID and Duonebs can be PRN (4) Hypoxia: - Required 2L via NC on 02/15, now stable on room air; due to above (5) Acute renal failure: - Cr valerie to 1.5 on 02/16 with baseline 0.8-0.9 - stabilized currently - Likely related some dehydration vs possible urinary obstruction as he did have some retention early in stay; unlikely ATN given rather rapid recovery and neg for cast cells - Urinating well currently - bladder scan/straight cath as needed (6) Urinary retention: - RESOLVED; as above (7) BPH (benign prostatic hyperplasia): - S/P TURP; Continue Terazosin 2 mg HS (8) H/O mitral valve replacement with mechanical valve: - Supratherapeutic at 3.9 - Given mechanical valve INR goal of 2.5-3.5 - Continue to hold Coumadin today and repeat INR in AM to determine resumption - follows with Coumadin clinic in [place] -- May need Rx to have labs drawn earlier as next appt is 02/26 - currently on 2.5 mg MF and 5 mg on the other days - received pre and post op Lovenox bridge (9) Chronic atrial fibrillation: - On warfarin as discussed above; currently on hold due to supratherapeutic level - No rate controlling measures currently; HR controlled (10) History of lower GI bleeding: - Following polyp removal during colonoscopy in 2016; denies melena/hematochezia (11) Hypertension: - Continue Amlodipine 5 mg daily and Losartan 100 mg daily (12) History of oral cancer: - Followed as outpatient, currently in remission. (13) CVA (cerebral vascular accident): - H/O, occurred in 2017. - Monitored as outpatient - not currently on statin or ASA agent. (14) Prediabetes: - Hgb A1C was 6.1 -- recommend carb consistent diet and weight loss - F/U with PCP to discuss lifestyle modifications and need for monitoring (15) Thrombocytopenia: - Currently at 153 and improved from previous days; can continue to monitor routinely (16) DVT prophylaxis: - SCDs; Hold Coumadin due to supratherapeutic INR. Disposition: Plan for home with home services. INR/CBC check with services Subjective Reports feeling overall well today. Was seen after working with therapy and states his pain is a little more bothersome at current time. Hgb reduced to 7.6 today even after transfusion yesterday. Asymptomatic from an anemia standpoint. No CP, SOB, Lightheadedness/Dizziness, weakness. Vitals are stable. Repeat this AM shows stabilization at 7.7. INR remains elevated. No melena/hematochezia. He anticipates home services on discharge. Tolerating diet without issue. No other complaints verbalized. Review of Systems Constitutional: no fever, no chills and no fatigue Respiratory: no cough and no dyspnea Cardiovascular: no chest pain, no palpitations and no edema Gastrointestinal: no abdominal pain, no nausea, no vomiting, no constipation, no diarrhea/loose stools, no blood in stools and no melena Genitourinary: no dysuria Integumentary: no rash Physical Exam Constitutional: WD/WN, vitals as above ENMT: Ears: no hearing impairment Neck: trachea midline Respiratory: normal respiratory effort, lungs clear to auscultation Cardiovascular: RRR, no murmur, no edema Gastrointestinal (Abdomen): Inspection/Auscultation: normal bowel sounds Percussion/Palpation: abdomen soft; abdomen nontender Musculoskeletal: Head/Neck/Chest: normocephalic and head atraumatic L knee with dressing applied C/D/I. Some increased ecchymosis of LLE/knee region with straie-like donaldson on medial aspect of LLE below knee Purple coloration of b/l lower shins patient reporting baseline Skin: no rashes, warm and dry (other then mentioned in MS) Neurologic: moves all extremities Psychiatric: A+Ox3, euthymic affect Results & Data Vital Signs (Past 12 Hours) Vital Signs Temp Pulse Resp BP Pulse Ox 02/18/19 07:20 79 18 96 02/18/19 05:54 36.8 C 74 14 153/80 H 94 PG Care Time/CCT Total # of Minutes Spent Total Time Spent with Patient: Total time spent is greater than 50% in coordination of care (as documented) at patient's floor/unit and/or counseling patient:
[2019-02-18] MEDS ORDERED: ALBUT/IPRATROP 3MG/0.5MG NEB 3 ML VIAL NEB PRN (12:54)
[2019-02-18] MEDS ORDERED: WARFARIN SOD 2.5 MG TAB PO SCH (16:00)
--- NOTE | 2019-02-25 17:11 | Discharge Summary ---
DISCHARGE DIAGNOSIS: Degenerative joint disease, left knee. SECONDARY DIAGNOSES: 1. Acute blood loss anemia. 2. Pneumonia. 3. Acute renal failure likely related to dehydration versus possibility of urinary obstruction. 4. Urinary retention. 5. BPH. 6. History of mitral valve replacement with mechanical valve and chronic Coumadin therapy. 7. Chronic atrial fibrillation. 8. History of lower GI bleed. 9. Hypertension. 10. History of oral cancer. 11. CVA in the past in 2017. 12. Prediabetic. 12. Thrombocytopenia. CONSULTS: Sejal Avina PA-C/Dr. Shane Miranda MD. COMPLICATIONS: Left total knee arthroplasty performed by Dr. Daniel on 02/13/2019. BRIEF HISTORY: As dictated in the history and physical. HOSPITAL SUMMARY: The patient was admitted on the above-noted date and had the above-noted surgery performed, which he tolerated well. On his first postoperative day, he was resting in bed comfortably and was doing well but was having pain when he got up to walk around. The pain was controlled with pain medication. He had no other complaints. Dressings were clean, dry and intact. Toes were mobile. He had good dorsiflexion. No calf tenderness. Sensation was intact. Vital signs were stable. He was afebrile. Hemoglobin was 9.7, INR is 1.2 and he was started on physical therapy protocol and continued on DVT prophylaxis and pain management and continued medical management through [facility]. By his second postoperative day, the patient was ambulating in the hallway initially with physical therapy and it was then seen while he was in his room lying in bed. He was having some pain after PT. Denied any shortness of breath or chest pain at that time and continued his Hemovac drain. DANIEL dressing with scant drainage. Hemovac drain had 75 mL from the morning shift. Calves were soft, nontender, neurovascularly intact. Toes were mobile. Vital signs were stable. He was afebrile. Hemoglobin was 9.1. Chest x-ray was taken per medicine service and was question of pneumonia and the patient had been started on ceftriaxone and azithromycin for empiric coverage. He has started requiring oxygen in the afternoon on postop day 2, which was felt to be related to his pneumonia. He was treated accordingly per medicine service and it was noted that his INR had increased to 2.1 and his Lovenox was planning to be discontinued. By his third postoperative day, it was noted that his BUN and creatinine were slowly creeping up and creatinine was 1.5 by that morning of his third postoperative day, a UA was ordered to evaluate for cast cells questioning whether ATN versus infection versus urinary obstruction versus dehydration. He was given a 500 mL bolus. By his postop day 4, he was currently sitting in bed, eating breakfast. Pain was controlled and denied any shortness of breath, chest pain at that time. No other complaints at that time and his dressing was intact and his drain had remained and had decreased drainage over the previous 24 hours. No erythema or ecchymosis. He was alert and oriented x3 and his hemoglobin had dropped down to 7.7 and he was transfused 2 units of PRBCs. The patient's status was continually monitored over the next day and Coumadin had been held due to increased INR 3.9. He was otherwise remaining medically stable. By 02/18/2019 hemoglobin was 9.5 status post transfusion. Plans were to continue treating him for his pneumonia with converting to p.o. antibiotics. His BUN and creatinine were responding nicely to IV hydration and it was felt it to be secondary to dehydration, possible urinary obstruction versus acute tubular necrosis with urine noted to be negative for cast cells and a rapid recovery was noted. Plans were to continue Coumadin per INR draw as per the patient's Coumadin clinic. He was otherwise remaining medically and orthopedically stable. He was progressing with his PT and by 02/18/2019 was felt that he could be discharged to home. For further review, please see chart. LABORATORY AND X-RAY DATA: As per chart. DISCHARGE INSTRUCTIONS: The patient was discharged to home with home health services on 02/18/2019. DIET: Regular. ACTIVITY: Weightbearing as tolerated on left lower extremity. Follow TK instruction sheets and special care instructions as noted. Follow up with Dr. Daniel in 2 weeks. The patient to call for appointment if one has not been made for you. DISCHARGE MEDICATIONS: Acetaminophen 1000 mg p.o. q. 8 hours, oxycodone 5-10 mg p.o. q. 4 hours p.r.n., warfarin 5 mg p.o. Monday, Monday, Monday, , Monday at 1600. Warfarin 2.5 mg p.o. Monday and Monday at 1600. Resume home meds as listed and stop taking enoxaparin.
== END 2019-02-18 14:41 | disposition home health service (06) | DRG 469 ==
LOC: ASU 06:09 → 3E 11:34

== ENCOUNTER 2024-02-25 20:45 | Inpatient (IN) ==
[2024-02-25 21:46] LABS: Basophils # (auto) 0.04 K/uL (0.00-0.20); Eosinophils # (auto) 0.11 K/uL (0.00-0.50); Eosinophils % (auto) 2.8 %; Hematocrit (blood only) 43.7 % (42.0-52.0); Hemoglobin 14.5 g/dl (14.0-18.0); Immature Granulocytes # (auto) 0.01 K/uL (0.01-0.20); Immature Granulocytes % (auto) 0.3 %; Lymphocytes # (auto) 0.87 K/uL (1.20-3.40); Lymphocytes % (auto) 22.1 %; Mean Corpuscular Hgb Conc 33.2 g/dL (32.0-36.0); Mean Corpuscular Volume 90.3 fL (80.0-100.0); Mean Platelet Volume 10.6 fL (9.4-12.4); Monocytes % (auto) 10.2 %; Neutrophils # (auto) 2.51 K/uL (1.40-6.50); Neutrophils % (auto) 63.6 %; Platelet Count 143 K/uL (130-400); RDW Coefficient of Variation 12.9 % (11.5-14.5); RDW Standard Deviation 42.3 fL (36.4-46.3); Red Blood Count 4.84 M/uL (4.70-6.10); White Blood Count 3.94 K/ul (4.8-10.8)
[2024-02-25 21:48] LABS: Albumin Globulin Ratio 1.3 (0.9-2); Albumin Level 4.5 gm/dl (3.4-5.0); BUN Creatinine Ratio 13.4 (10-20); Calcium 9.5 mg/dl (8.6-10.3); Creatinine Clr Calc Pharmacy 62.2 ml/min; Globulin 3.6 gm/dl (2.5-4.0); Potassium 4.1 mmol/L (3.5-5.1); Total Protein 8.1 gm/dl (6.0-8.3)
[2024-02-25 21:55] LABS: Troponin I High Sensitivity 42.8 pg/ml (0-20)
[2024-02-25 22:01] LABS: INR 2.3 (0.9-1.1); Prothrombin Time 23.1 Seconds (9.0-12.0)
[2024-02-25] MEDS: hydrALAZINE HCL 20 MG/ML VIAL IV STA (22:07)
--- NOTE | 2024-02-25 22:09 | Emergency Department Note ---
Impression & Plan Hypertensive emergency, Non-ST elevation VT (NSTEMI), Elevated brain natriuretic peptide (BNP) level, Acute chest pain ED Provider Note HISTORY OF PRESENT ILLNESS: Patient is an 83-year-old male presenting with chest pain and hypertension. Patient reports that throughout the day today he has been having multiple episodes of substernal chest pain. Denies any radiation of the chest pain into his back, shoulder or abdomen. He states the pain last for anywhere from 30 minutes to an hour at a time. He states that he had another episode of pain about 1.5 hours prior to arrival in the emergency department and took his blood pressure and noticed that his systolic blood pressure was over 200. He takes losartan daily. He denies any abdominal pain, nausea or vomiting. He takes Coumadin for history of a valve replacement. Reports his Coumadin dose has been the same for the last 2 years. He denies any associated shortness of breath or nausea with the chest pain. He denies any history of cardiac stents. He is chest pain-free on arrival to the emergency department. Denies any headache or changes in vision. Denies any numbness or tingling or weakness in extremities. ROS: as above PHYSICAL EXAM: Constitutional: Patient appears in no acute distress. HENT: Head: Normocephalic and atraumatic. Eyes: EOMI, PERRL Mouth/Throat: Mucous membranes moist. Neck: Trachea midline. Neck supple. Cardiovascular: Irregular rhythm. No murmurs, rubs or gallops. Intact distal pulses. Pulmonary/Chest: No respiratory distress. Breath sounds clear and equal bilaterally. No wheezes or rales. Abdominal: Abdomen soft, no tenderness, rebound or guarding. Musculoskeletal: No edema, tenderness or deformity noted. Skin: Warm and dry. No rash, erythema, pallor or cyanosis Psychiatric: Appropriate mood and affect for situation. Neurological: Alert and keenly responsive. CN II-XII grossly intact, moving all extremities equally and fully. MDM: - Vitals signs showed hypertension - History obtained via patient. History as above. - Chronic conditions affecting care: oral cancer (s/p radiation); HTN; chronic Afib; CVA - Differential diagnoses include, but are not limited to: Acute coronary syndrome; pulmonary embolism; dissection; tension pneumothorax; esophageal rupture; pneumonia - Order placed for continuous cardiac monitoring. At this time, monitor showed rate of 62 bpm with irregular rhythm, per my interpretation. - External medical records reviewed. Discharge summary dated 02/25/2019 was reviewed. Patient was admitted that time for a left knee total arthroplasty and had secondary diagnoses of acute renal failure, pneumonia and acute blood loss anemia. - EKG interpreted by myself showed atrial fibrillation. Rate 77 bpm. QT 404. No acute ischemic changes. - Laboratory workup interpreted by myself showed leukopenia (WBC 3.94); therapeutic INR (2.3); stable electrolytes; hyperbilirubinemia (2.0); elevated troponin (42.8); elevated BNP (285); normal lipase - Viral respiratory panel negative - CXR negative for pneumonia, per my interpretation - Considered CTA chest, given patient's chest pain and hypertension. However, he has no complaints of chest pain on arrival to the emergency department and no complaints of pain into the back or abdomen or any neurological complaints. - Patient given 10 mg IV hydralazine for significant hypertension. However, his blood pressure went from 260s to 230s. Decision was made to start the patient on a nicardipine drip. - Discussed case with ICU midlevel provider, Omar Melara, given patient's nicardipine gtt. - Discussion was had with family service caseworker about patient's case and need for admission - Hospitalist, Dr. Verma, consulted for admission - [facility]. I have personally spent 63 minutes of critical care time in the direct management of this patient. This includes bedside care, interpretation of diagnostic studies, and testing, discussion with consultants, patient, and family members, and other required patient management activities. This 63 minutes is in excess of all separately billable procedures. 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 Post polypectomy ulcer with pigmented protuberance and residual polyp s/p cold snaring of residual polyp and clip closure. Post polypectomy ulcer with adherent clot s/p injection of dilute epinephrine, snare removal of clot revealing visible vessel, snare removal of misplaced clips and complete closure with hemostatic clip. 3 mm polyp in the transverse colon s/p cold snare. Internal hemorrhoids. Poor colon preperation with solid stool precluding visualization of the third polypectomy site." History of dental surgery (Chronic) S/P cholecystectomy (Chronic) H/O colonoscopy (Chronic) "Colonoscopy [facility] 01/18/16- "One 7 mm polyp in the cecum was not removed. One 6 mm, recently bleeding polyp in the ascending colon. Treated with bipolar cautery. An actively bleeding ulcer at presumed polypectomy site in the ascending colon. Hemostasis established with epinephrine injection, bipolar coagulation, and placement of clips. An ulcer at presumed polypectomy site in the transverse colon. Clot removed and clips (MR conditional) were placed. Diverticulosis in the sigmoid colon. Blood in the entire examined colon. No specimens collected." Colonoscopy [facility] 01/18/16- "7 mm cecal polyp s/p cold snare and clip closure. Post polypectomy ulcer with pigmented protuberance and residual polyp s/p cold snaring of residual polyp and clip closure. Post polypectomy ulcer with adherent clot s/p injection of dilute epinephrine, snare removal of clot revealing visible vessel, snare removal of misplaced clips and complete closure with hemostatic clip. 3 mm polyp in the transverse colon s/p cold snare. Internal hemorrhoids. 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 S/P valve replacement with [facility]. Atrial fibrillation, chronic On Warfarin GI bleed 2016 AFTER COLONOSCOPY (Coumadin was not held, had severe post-op bleed after polyp removal) Jaw fracture WIRED IN THE 60'S, no residual difficulties. Transient ischemic attack (TIA) "A COUPLE OF MILD STROKES" LAST ONE OVER 1 YEAR AGO Hypertension Cerebrovascular disease "midbrain ischemic stroke Mar 2016" Anemia Surgical History History of cataract surgery RT/LEFT History of cholecystectomy Hx of transurethral resection of prostate GREENLIGHT LASER TREATMENT History of esophagogastroduodenoscopy (EGD) History of colonoscopy History of herniorrhaphy History of surgery PEG TUBE INSERTION/REMOVAL 1998 DURING RADIATION TX FOR ORAL CANCER History of tooth extraction History of tonsillectomy History of cardiac cath 1994 NO STENTS Family History Unknown No family history of adverse response to anesthesia Social History Smoking Status: Never smoker Second Hand Exposure: No; Do You Dip or Chew Tobacco: No; Hx Alcohol Use: No Hx Substance Use: No Preferred Language: Kinyarwanda Communication Ability: Effective Customs Opener Verifier 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 Required: No Beliefs That Will Affect Care: None marital status: Current Living Situation: Spouse Feels Safe at Home: Yes Assistive Devices: Walker Allergies Allergies Allergy/AdvReac Type Severity Reaction Status Date / Time allopurinol AdvReac Mild COUGH Verified 07/28/20 10:00 lisinopril AdvReac Mild COUGH Verified 07/28/20 10:00 Home Meds Home Medications Medication Instructions Recorded Confirmed furosemide 20 mg tablet 40 mg PO HS PRN Fluid Retention 07/23/18 07/28/20 losartan 100 mg tablet 100 mg PO QPM 07/23/18 07/28/20 multivitamin 1 tab PO DAILY 07/23/18 07/28/20 potassium chloride 20 mEq 20 meq PO DAILY PRN Weight Gain 07/23/18 07/28/20 tablet,extended release vitamins A,C,U-nhzn-[id number] 2,148 1 tab PO BID 07/27/18 07/28/20 mcg-113 mg-45 mg-17.4 mg tablet (PreserVision AREDS) warfarin 5 mg tablet (Coumadin) 5 mg PO UD 07/27/18 07/28/20 mirtazapine 15 mg tablet 15 mg PO DAILY 02/13/19 07/28/20 terazosin 2 mg capsule 2 mg PO HS 02/13/19 07/28/20 Previous Rx's Medication Instructions Recorded acetaminophen 500 mg tablet 1,000 mg (2 x 500 mg) PO Q8 #100 02/16/19 tabs oxycodone 5 mg tablet 5 - 10 mg (1 - 2 x 5 mg) PO Q4H 02/16/19 PRN pain #20 tabs warfarin 2.5 mg tablet (Coumadin) 2.5 mg PO MoFr@1600 #10 tabs 02/16/19 warfarin 5 mg tablet (Coumadin) 5 mg PO SuTuWeThSa@1600 #20 tabs 02/16/19 tramadol 50 mg tablet 25 mg (1/2 x 50 mg) PO Q8H PRN 07/28/20 pain #6 tabs Results & Data (ED) Vital Signs Vital Signs - 24 hr 02/25/24 20:56 02/25/24 21:25 02/25/24 21:32 Temperature 37 C Temperature Source Temporal Artery Scan Pulse Rate 76 74 Pulse Rate [Left Finger] 75 Pulse Rhythm Regular Pulse Strength Normal Respiratory Rate 17 Respiratory Effort / Characteristics Non-Labored Spontaneous Respiratory Depth Normal Respiratory Pattern Regular Blood Pressure 257/122 H Blood Pressure [Right Arm] 267/131 H Blood Pressure Mean 167 Blood Pressure Mean [Right Arm] 176 Blood Pressure Position Sitting Blood Pressure Position [Right Arm] Pulse Oximetry 95 94 Oxygen Delivery Method Room Air Room Air Sepsis Recent Fever Within 48 Hours No Sepsis New/Unexplained Change in Mental Status N/A Sepsis Action Taken by Nursing No Action Required 02/25/24 22:10 02/25/24 22:20 02/25/24 22:23 Temperature Temperature Source Pulse Rate 63 Pulse Rate [Left Finger] 59 L Pulse Rhythm Pulse Strength Respiratory Rate 22 Respiratory Effort / Characteristics Respiratory Depth Respiratory Pattern Blood Pressure 211/120 H Blood Pressure [Right Arm] 239/120 H Blood Pressure Mean 162 Blood Pressure Mean [Right Arm] 159 Blood Pressure Position Blood Pressure Position [Right Arm] Pulse Oximetry 95 94 94 Oxygen Delivery Method Room Air Sepsis Recent Fever Within 48 Hours Sepsis New/Unexplained Change in Mental Status Sepsis Action Taken by Nursing 02/25/24 22:36 02/25/24 22:45 02/25/24 23:00 Temperature Temperature Source Pulse Rate 75 86 Pulse Rate [Left Finger] 67 Pulse Rhythm Pulse Strength Respiratory Rate 21 20 20 Respiratory Effort / Characteristics Non-Labored Spontaneous Respiratory Depth Normal Respiratory Pattern Regular Blood Pressure 208/111 H 178/106 H Blood Pressure [Right Arm] 169/97 H Blood Pressure Mean 143 130 Blood Pressure Mean [Right Arm] 121 Blood Pressure Position Blood Pressure Position [Right Arm] Semi-fowlers Pulse Oximetry 95 95 95 Oxygen Delivery Method Room Air Room Air Room Air Sepsis Recent Fever Within 48 Hours Sepsis New/Unexplained Change in Mental Status Sepsis Action Taken by Nursing Laboratory Data 02/25/24 21:12 02/25/24 21:12 Lab Results 02/25/24 02/25/24 02/25/24 Range/Units 21:12 21:15 23:00 WBC 3.94 L (4.8-10.8) K/ul RBC 4.84 (4.70-6.10) M/uL Hgb 14.5 (14.0-18.0) g/dl Hct 43.7 (42.0-52.0) % MCV 90.3 (80.0-100.0) fL MCH 30.0 (25.0-34.0) pg MCHC 33.2 (32.0-36.0) g/dL RDW Std Deviation 42.3 (36.4-46.3) fL RDW Coeff of Maxine 12.9 (11.5-14.5) % Plt Count 143 (130-400) K/uL MPV 10.6 (9.4-12.4) fL Immature Gran % (Auto) 0.3 % Neut % (Auto) 63.6 % Lymph % (Auto) 22.1 % Lea % (Auto) 10.2 % Eos % (Auto) 2.8 % Baso % (Auto) 1.0 % Neut # (Auto) 2.51 (1.40-6.50) K/uL Lymph # (Auto) 0.87 L (1.20-3.40) K/uL Lea # (Auto) 0.40 (0.11-0.59) K/uL Eos # (Auto) 0.11 (0.00-0.50) K/uL Baso # (Auto) 0.04 (0.00-0.20) K/uL Immature Gran # (Auto) 0.01 (0.01-0.20) K/uL PT 23.1 H (9.0-12.0) Seconds INR 2.3 H (0.9-1.1) Sodium 138 (136-145) mmol/L Potassium 4.1 (3.5-5.1) mmol/L Chloride 101 (98-107) mmol/L Carbon Dioxide 32 (21-32) mmol/L Anion Gap 5 (3-11) BUN 13 (6-23) mg/dl Creatinine 0.97 (0.6-1.4) mg/dl Est Cr Clr Drug Dosing 62.2 ml/min eGFR 76.98 BUN/Creatinine Ratio 13.4 (10-20) Glucose 110 H (70-99(Fasting)) mg/dl Calcium 9.5 (8.6-10.3) mg/dl Total Bilirubin 2.0 H (0.2-1.0) mg/dl AST 13 (13-39) U/L ALT 6 L (7-52) U/L Alkaline Phosphatase 116 H (34-104) U/L Troponin I High Sens 42.8 H (0-20) pg/ml B-Natriuretic Peptide 285 H (0-100) pg/ml Total Protein 8.1 (6.0-8.3) gm/dl Albumin 4.5 (3.4-5.0) gm/dl Globulin 3.6 (2.5-4.0) gm/dl Albumin/Globulin Ratio 1.3 (0.9-2) Lipase 14 (11-82) U/L Urine Color Yellow Urine Appearance Clear (Clear) Urine pH 7.5 (4.5-7.5) Ur Specific [place] 1.014 (1.000-1.030) Urine Protein 1+ H (Negative) Urine Glucose (UA) Negative (Negative) Urine Ketones Negative (Negative) Urine Blood Negative (Negative) Urine Nitrite Negative (Negative) Urine Bilirubin Negative (Negative) Urine Urobilinogen Negative (Negative) Ur Leukocyte Esterase Negative (Negative) Urine WBC (Auto) 0-5 (0-5) /hpf Urine RBC (Auto) 3-5 H (0-2) /hpf U Hyaline Cast (Auto) 0-2 (0-2) /lpf U Epithel Cells (Auto) 0-2 (0-2) /hpf Urine Bacteria (Auto) None Seen (None Seen) Adenovirus (PCR) Not Detected (NotDetected) B. pertussis DNA (PCR) Not Detected (NotDetected) B.parapertussis DNA PCR Not Detected (NotDetected) C. pneumoniae DNA (PCR) Not Detected (NotDetected) Coronavirus OC43 (PCR) Not Detected (NotDetected) Coronavirus HKU1 (PCR) Not Detected (NotDetected) Coronavirus 229E (PCR) Not Detected (NotDetected) SARS-CoV-2 (PCR) Not Detected (NotDetected) Coronavirus NL63 (PCR) Not Detected (NotDetected) Human Metapneumovir PCR Not Detected (NotDetected) Influenza Type A (PCR) Not Detected (NotDetected) Influenza Type B (PCR) Not Detected (NotDetected) M. pneumoniae (PCR) Not Detected (NotDetected) Parainfluenza 1 (PCR) Not Detected (NotDetected) Parainfluenza 2 (PCR) Not Detected (NotDetected) Parainfluenza 3 (PCR) Not Detected (NotDetected) Parainfluenza 4 (PCR) Not Detected (NotDetected) RSV (PCR) Not Detected (NotDetected) Entero/Rhino (PCR) Not Detected (NotDetected) Administered Medications Nicardipine HCl 25 mg/ Sodium (Chloride) 250 mls @ 50 mls/hr IV .Q5H [facility]; Protocol Stop: 03/26/24 21:59 Last Titration: 02/25/24 22:50 Dose: 2.5 mg/hr, 25 mls/hr Documented By: Admin: 02/25/24 22:35 Dose: 5 mg/hr, 50 mls/hr Documented By: JT Co-signed By: HJW Discontinued Medications Hydralazine HCl (Hydralazine Hcl 20 Mg/Ml Vial) 10 mg IV NOW STA Stop: 02/25/24 21:24 Last Admin: 02/25/24 22:07 Dose: 10 mg Documented By: PEPPER Miscellaneous (Stat Iv Infusion Titration Per Protocol) 1 each N/A NOW STA Stop: 02/25/24 21:58 Last Admin: 02/25/24 22:36 Dose: Not Given Documented By: TWAN Discharge Plan Visit Data Chief Complaint: Cardiac Assessment Stated Complaint: SHARP CHEST PAIN,HTN ED Provider: Chela Mg Discharge Problem: Hypertensive emergency, Non-ST elevation VT (NSTEMI), Elevated brain natriuretic peptide (BNP) level, Acute chest pain Forms Stand Alone Forms: My [facility] [place] Prescriptions Prescriptions: No Action multivitamin Tablet 1 tab PO DAILY furosemide 20 mg Tablet 40 mg PO HS PRN (Reason: Fluid Retention) Patient Comments: pt says only when he needs it. losartan 100 mg Tablet 100 mg PO QPM potassium chloride 20 mEq Tablet Extended Release 20 meq PO DAILY PRN (Reason: Weight Gain) Rx Instructions: takes when taking lasix warfarin [Coumadin] 5 mg Tablet 5 mg PO UD PreserVision AREDS [id number],160-113-100 [id number] Tablet 1 tab PO BID terazosin 2 mg Capsule 2 mg PO HS mirtazapine 15 mg Tablet 15 mg PO DAILY warfarin [Coumadin] 2.5 mg Tablet 2.5 mg PO MoFr@1600 Qty: 10 0RF warfarin [Coumadin] 5 mg Tablet 5 mg PO SuTuWeThSa@1600 Qty: 20 0RF acetaminophen 500 mg Tablet 1,000 mg PO Q8 Qty: 100 0RF Patient Comments: Patients grandson gave him 2 tablets of something today 07/28 and he thinks it was tylenol or something like it. oxycodone 5 mg Tablet 5 - 10 mg PO Q4H PRN (Reason: pain) Qty: 20 0RF Patient Comments: Patient is out, says he needs new rx tramadol 50 mg tablet 25 mg PO Q8H PRN (Reason: pain) Qty: 6 0RF Referrals Referrals: Cosme Medellin, PAJelaniC [Primary Care Provider] -
[2024-02-25 22:17] LABS: Adenovirus PCR Not Detected (NotDetected); Bordetella parapertussis PCR Not Detected (NotDetected); Bordetella pertussis PCR Not Detected (NotDetected); Chlamydia pneumoniae PCR Not Detected (NotDetected); Coronavirus 229E PCR Not Detected (NotDetected); Coronavirus CoV-2 (COVID19)PCR Not Detected (NotDetected); Coronavirus HKU1 PCR Not Detected (NotDetected); Coronavirus NL63 PCR Not Detected (NotDetected); Coronavirus OC43PCR Not Detected (NotDetected); Human Metapneumovirus PCR Not Detected (NotDetected); Influenza A PCR Not Detected (NotDetected); Influenza B PCR Not Detected (NotDetected); Mycoplasma pneumoniae PCR Not Detected (NotDetected); Parainfluenza Virus 1 PCR Not Detected (NotDetected); Parainfluenza Virus 2 PCR Not Detected (NotDetected); Parainfluenza Virus 3 PCR Not Detected (NotDetected); Parainfluenza Virus 4 PCR Not Detected (NotDetected); Respiratory Syncytial VirusPCR Not Detected (NotDetected); Rhinovirus/Enterovirus PCR Not Detected (NotDetected)
[2024-02-25] MEDS: niCARdipine 25 MG in SODIUM CHLORIDE 0.9% 240 ML IV SCH (22:35)
[2024-02-25] MEDS: STAT IV Infusion **Titration per Protocol STA (22:36)
[2024-02-25 23:25] LABS: Appearance Urine Clear (Clear); Bacteria Urine Automated None Seen (None Seen); Bilirubin Urine Negative (Negative); Blood Urine Negative (Negative); Cast Urine Automated 0-2 /lpf (0-2); Color Urine Yellow; Epithelial Cell Urine Auto 0-2 /hpf (0-2); Glucose Urine UA Negative (Negative); Ketones Urine Negative (Negative); Leukocyte Esterase Urine Negative (Negative); Nitrite Urine Negative (Negative); Protein Urine 1+ (Negative); Specific Gravity Urine 1.014 (1.000-1.030); Urobilinogen Urine Negative (Negative); WBC Urine Automated 0-5 /hpf (0-5); pH Urine 7.5 (4.5-7.5)
--- NOTE | 2024-02-25 23:57 | History & Physical Report ---
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 IV heparin Coumadin bridge, INR goal between 2.5-3.5 given history of mechanical MVR Full code Patient tonya requesting updates providers. Mr. Bandar Castaneda, contact #[phone]. Secondary contact is Ms. Lauren Lopez, (bernice martínez's fiance), contact #[phone]. Text document was generated using [employer] voice recognition software. It may contain grammatical or spelling errors. Kindly contact undersigned for clarification of any documentation item in question. History of Present Illness Chief Complaint: Chest pain, high blood pressure Primary Care Provider: Cosme Medellin History obtained from patient, family, and records. 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 Last confinement 2018 under Orthopedics service for elective left total knee arthroplasty. Postop anemia requiring transfusion. Patient noted tightness over his heart without radiation. No SOB, no cough, no headache symptoms. Compliant with home medications. Denies OTC NSAID intake or unusual stress at home. Last BP check at home was about the last month, SBP 140s as per tanya. Last [facility] [place] was October 2021. Patient reestablishing care after labs and follow-ups as per note. SBP 180s during visit. Low-dose amlodipine recommended for BP control. Medication not to be titrated higher given past history of peripheral edema with higher dosage as per provider note. Patient not aware of need for regular specialist follow-up as per family. Patient sees PCP every 6 months as per family. SBP noted to be 250s at home. Highest SBP of 260s documented at the ER. Nicardipine drip and hydralazine administered at the ER. SBP 140s. Nicardipine drip stopped at the ER. Medical History as above Surgical History : Jaw surgery, dental surgery, cholecystectomy, hernia repair, tonsillectomy, mechanical MVR Family History : Heart disease, DM, stroke Personal/Social history : Non-smoker, no EtOH intake, disabled prior to intermediate Allergies Allergy/AdvReac Type Severity Reaction Status Date / Time verapamil AdvReac Intermediate bradycardia Verified 02/26/24 04:14 allopurinol AdvReac Mild COUGH Verified 07/28/20 10:00 lisinopril AdvReac Mild COUGH Verified 07/28/20 10:00 Home Medications Medication Instructions Recorded Confirmed Type acetaminophen 500 mg tablet 1,000 mg (2 x 500 mg) PO Q8 #100 02/16/19 02/26/24 Rx tabs losartan 100 mg tablet 100 mg PO DAILY 02/26/24 02/26/24 History warfarin 2.5 mg tablet 2.5 mg PO DAILY 02/26/24 02/26/24 History Past Med/Surg History Problem List (Updated 02/26/24 @ 10:31 by MARIUSZ Taylor) Elevated troponin Hypertensive crisis Acute chest pain (Acute) Elevated brain natriuretic peptide (BNP) level (Acute) Non-ST elevation UT (NSTEMI) (Acute) Hypertensive emergency (Acute) Acute renal failure PNA (pneumonia) Acute blood loss anemia Thrombocytopenia S/P total knee arthroplasty DVT prophylaxis Prediabetes BPH (benign prostatic hyperplasia) s/p TURP 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 Post polypectomy ulcer with pigmented protuberance and residual polyp s/p cold snaring of residual polyp and clip closure. Post polypectomy ulcer with adherent clot s/p injection of dilute epinephrine, snare removal of clot revealing visible vessel, snare removal of misplaced clips and complete closure with hemostatic clip. 3 mm polyp in the transverse colon s/p cold snare. Internal hemorrhoids. Poor colon preperation with solid stool precluding visualization of the third polypectomy site." History of dental surgery (Chronic) S/P cholecystectomy (Chronic) H/O colonoscopy (Chronic) "Colonoscopy [facility] 01/18/16- "One 7 mm polyp in the cecum was not removed. One 6 mm, recently bleeding polyp in the ascending colon. Treated with bipolar cautery. An actively bleeding ulcer at presumed polypectomy site in the ascending colon. Hemostasis established with epinephrine injection, bipolar coagulation, and placement of clips. An ulcer at presumed polypectomy site in the transverse colon. Clot removed and clips (MR conditional) were placed. Diverticulosis in the sigmoid colon. Blood in the entire examined colon. No specimens collected." Colonoscopy [facility] [place] 01/18/16- "7 mm cecal polyp s/p cold snare and clip closure. Post polypectomy ulcer with pigmented protuberance and residual polyp s/p cold snaring of residual polyp and clip closure. Post polypectomy ulcer with adherent clot s/p injection of dilute epinephrine, snare removal of clot revealing visible vessel, snare removal of misplaced clips and complete araseli sure with hemostatic clip. 3 mm polyp in the transverse colon s/p cold snare. Internal hemorrhoids. 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 S/P valve replacement with [facility]. Atrial fibrillation, chronic On Warfarin GI bleed 2016 AFTER COLONOSCOPY (Coumadin was not held, had severe post-op bleed after polyp removal) Jaw fracture WIRED IN THE 60'S, no residual difficulties. Transient ischemic attack (TIA) "A COUPLE OF MILD STROKES" LAST ONE OVER 1 YEAR AGO Hypertension Cerebrovascular disease "midbrain ischemic stroke Mar 2016" Anemia Surgical History History of cataract surgery RT/LEFT History of cholecystectomy Hx of transurethral resection of prostate GREENL[employer] LASER TREATMENT History of esophagogastroduodenoscopy (EGD) History of colonoscopy History of herniorrhaphy History of surgery PEG TUBE INSERTION/REMOVAL 1998 DURING RADIATION TX FOR ORAL CANCER History of tooth extraction History of tonsillectomy History of cardiac cath 1994 NO STENTS Family History Unknown No family history of adverse response to anesthesia Social History Smoking Status: Never smoker Second Hand Exposure: No; Do You Dip or Chew Tobacco: No; Hx Alcohol Use: No Hx Substance Use: No Preferred Language: Azerbaijani Communication Ability: Effective Gastroenterology Nurse Practitioner Required: No Beliefs That Will Affect Care: None marital status: Current Living Situation: Family Current Living Situation Comment: grandson Other Information That Helps Us Care for You: No Feels Safe at Home: Yes Safety Concerns: Feels Safe At This Time Assistive Devices: Cane and Walker Review of Systems Review of Systems: As per HPI, all other systems reviewed and negative Physical Exam Physical Exam: GENERAL: Comfortable, slightly hard of hearing, mild dysarthria (chronic as per family), no respiratory distress SKIN: Normal color, warm HEENT: Alopecia, bespectacled, pink palpebral conjunctivae, no ptosis, dry buccal mucosa NECK : Supple, no tenderness CHEST : Decreased breath sounds, no tenderness HEART : Irregular, mechanical murmur ABDOMEN: Some distention, nontender EXTREMITIES : Minimal LE swelling without tenderness, no other conspicuous deformities noted NEUROLOGIC : Coherent, no facial asymmetry, chronic dysarthria as per family, slightly hard of hearing, gait and stance not assessed Results & Data Results & Data Vital Signs (Past 12 Hours) Vital Signs Temp Pulse Pulse Resp BP BP Pulse Ox 02/25/24 23:42 67 21 147/99 H 94 02/25/24 23:24 70 21 170/98 H 95 02/25/24 23:15 72 24 162/88 H 96 02/25/24 23:00 86 20 178/106 H 95 02/25/24 22:45 67 20 169/97 H 95 02/25/24 22:36 75 21 208/111 H 95 02/25/24 22:23 94 02/25/24 22:20 63 22 211/120 H 94 02/25/24 22:10 59 L 239/120 H 95 02/25/24 21:32 75 267/131 H 94 02/25/24 21:25 74 02/25/24 20:56 37 C 76 17 257/122 H 95 O2 Del Method 02/25/24 23:42 Room Air 02/25/24 23:24 Room Air 02/25/24 23:15 Room Air 02/25/24 23:00 Room Air 02/25/24 22:45 Room Air 02/25/24 22:36 Room Air 02/25/24 22:23 Room Air 02/25/24 22:20 02/25/24 22:10 02/25/24 21:32 Room Air 02/25/24 21:25 02/25/24 20:56 Room Air Laboratory Results Laboratory Results WBC 3.94 K/ul (4.8-10.8) L 02/25/24 21:12 RBC 4.84 M/uL (4.70-6.10) 02/25/24 21:12 Hgb 14.5 g/dl (14.0-18.0) 02/25/24 21:12 Hct 43.7 % (42.0-52.0) 02/25/24 21:12 MCV 90.3 fL (80.0-100.0) 02/25/24 21:12 MCH 30.0 pg (25.0-34.0) 02/25/24 21:12 MCHC 33.2 g/dL (32.0-36.0) 02/25/24 21:12 RDW Std Deviation 42.3 fL (36.4-46.3) 02/25/24 21:12 RDW Coeff of Maxine 12.9 % (11.5-14.5) 02/25/24 21:12 Plt Count 143 K/uL (130-400) 02/25/24 21:12 MPV 10.6 fL (9.4-12.4) 02/25/24 21:12 Immature Gran % (Auto) 0.3 % 02/25/24 21:12 Neut % (Auto) 63.6 % 02/25/24 21:12 Lymph % (Auto) 22.1 % 02/25/24 21:12 Calloway % (Auto) 10.2 % 02/25/24 21:12 Eos % (Auto) 2.8 % 02/25/24 21:12 Baso % (Auto) 1.0 % 02/25/24 21:12 Neut # (Auto) 2.51 K/uL (1.40-6.50) 02/25/24 21:12 Lymph # (Auto) 0.87 K/uL (1.20-3.40) L 02/25/24 21:12 Calloway # (Auto) 0.40 K/uL (0.11-0.59) 02/25/24 21:12 Eos # (Auto) 0.11 K/uL (0.00-0.50) 02/25/24 21:12 Baso # (Auto) 0.04 K/uL (0.00-0.20) 02/25/24 21:12 Immature Gran # (Auto) 0.01 K/uL (0.01-0.20) 02/25/24 21:12 PT 23.1 Seconds (9.0-12.0) H 02/25/24 21:12 INR 2.3 (0.9-1.1) H 02/25/24 21:12 Sodium 138 mmol/L (136-145) 02/25/24 21:12 Potassium 4.1 mmol/L (3.5-5.1) 02/25/24 21:12 Chloride 101 mmol/L (98-107) 02/25/24 21:12 Carbon Dioxide 32 mmol/L (21-32) 02/25/24 21:12 Anion Gap 5 (3-11) 02/25/24 21:12 BUN 13 mg/dl (6-23) 02/25/24 21:12 Creatinine 0.97 mg/dl (0.6-1.4) 02/25/24 21:12 Est Cr Clr Drug Dosing 62.2 ml/min 02/25/24 21:12 eGFR 76.98 02/25/24 21:12 BUN/Creatinine Ratio 13.4 (10-20) 02/25/24 21:12 Glucose 110 mg/dl (70-99(Fasting)) H 02/25/24 21:12 Calcium 9.5 mg/dl (8.6-10.3) 02/25/24 21:12 Total Bilirubin 2.0 mg/dl (0.2-1.0) H 02/25/24 21:12 AST 13 U/L (13-39) 02/25/24 21:12 ALT 6 U/L (7-52) L 02/25/24 21:12 Alkaline Phosphatase 116 U/L (34-104) H 02/25/24 21:12 Troponin I High Sens 42.8 pg/ml (0-20) H 02/25/24 21:12 B-Natriuretic Peptide 285 pg/ml (0-100) H 02/25/24 21:12 Total Protein 8.1 gm/dl (6.0-8.3) 02/25/24 21:12 Albumin 4.5 gm/dl (3.4-5.0) 02/25/24 21:12 Globulin 3.6 gm/dl (2.5-4.0) 02/25/24 21:12 Albumin/Globulin Ratio 1.3 (0.9-2) 02/25/24 21:12 Lipase 14 U/L (11-82) 02/25/24 21:12 Urine Color Yellow 02/25/24 23:00 Urine Appearance Clear (Clear) 02/25/24 23:00 Urine pH 7.5 (4.5-7.5) 02/25/24 23:00 Ur Specific Hubertus 1.014 (1.000-1.030) 02/25/24 23:00 Urine Protein 1+ (Negative) H 02/25/24 23:00 Urine Glucose (UA) Negative (Negative) 02/25/24 23:00 Urine Ketones Negative (Negative) 02/25/24 23:00 Urine Blood Negative (Negative) 02/25/24 23:00 Urine Nitrite Negative (Negative) 02/25/24 23:00 Urine Bilirubin Negative (Negative) 02/25/24 23:00 Urine Urobilinogen Negative (Negative) 02/25/24 23:00 Ur Leukocyte Esterase Negative (Negative) 02/25/24 23:00 Urine WBC (Auto) 0-5 /hpf (0-5) 02/25/24 23:00 Urine RBC (Auto) 3-5 /hpf (0-2) H 02/25/24 23:00 U Hyaline Cast (Auto) 0-2 /lpf (0-2) 02/25/24 23:00 U Epithel Cells (Auto) 0-2 /hpf (0-2) 02/25/24 23:00 Urine Bacteria (Auto) None Seen (None Seen) 02/25/24 23:00 Adenovirus (PCR) Not Detected (NotDetected) 02/25/24 21:15 B. pertussis DNA (PCR) Not Detected (NotDetected) 02/25/24 21:15 B.parapertussis DNA PCR Not Detected (NotDetected) 02/25/24 21:15 C. pneumoniae DNA (PCR) Not Detected (NotDetected) 02/25/24 21:15 Coronavirus OC43 (PCR) Not Detected (NotDetected) 02/25/24 21:15 Coronavirus HKU1 (PCR) Not Detected (NotDetected) 02/25/24 21:15 Coronavirus 229E (PCR) Not Detected (NotDetected) 02/25/24 21:15 SARS-CoV-2 (PCR) Not Detected (NotDetected) 02/25/24 21:15 Coronavirus NL63 (PCR) Not Detected (NotDetected) 02/25/24 21:15 Human Metapneumovir PCR Not Detected (NotDetected) 02/25/24 21:15 Influenza Type A (PCR) Not Detected (NotDetected) 02/25/24 21:15 Influenza Type B (PCR) Not Detected (NotDetected) 02/25/24 21:15 M. pneumoniae (PCR) Not Detected (NotDetected) 02/25/24 21:15 Parainfluenza 1 (PCR) Not Detected (NotDetected) 02/25/24 21:15 Parainfluenza 2 (PCR) Not Detected (NotDetected) 02/25/24 21:15 Parainfluenza 3 (PCR) Not Detected (NotDetected) 02/25/24 21:15 Parainfluenza 4 (PCR) Not Detected (NotDetected) 02/25/24 21:15 RSV (PCR) Not Detected (NotDetected) 02/25/24 21:15 Entero/Rhino (PCR) Not Detected (NotDetected) 02/25/24 21:15 Diagnostic Findings Chest x-ray as per my interpretation no congestion EKG as per my interpretation : Rate 75, A-fib, normal axis, no ischemia,
--- NOTE | 2024-02-26 00:05 | XRay Report ---
Exam(s): XR CXR 1 VIEW EXAM: XR Chest, 1 View CLINICAL HISTORY: Reason for exam: Chest pain, nonspecific. TECHNIQUE: Frontal view of the chest. COMPARISON: 02/15/2019 FINDINGS: Lungs: Unremarkable. No consolidation. Pleural space: Unremarkable. No pneumothorax. Heart: Unremarkable. No cardiomegaly. Mediastinum: . Normal mediastinal contour. Bones/joints: Postoperative changes median sternotomy. No acute fracture. IMPRESSION: Normal chest x-ray. Electronically signed by: Gerry Andrade MD 02/26/24 00:05 AM
[2024-02-26] MEDS ORDERED: NITROGLYCERIN SL 0.4 MG/TAB TAB SL PRN (00:41)
[2024-02-26] MEDS ORDERED: MoRPHine SULFATE 2 MG/ML CARP IV PRN (00:43)
[2024-02-26] MEDS ORDERED: PROMETHAZINE 6.25 MG/50.25 ML BAG IV PRN (00:43)
[2024-02-26] MEDS ORDERED: traMADol HCL 50 MG TABLET PO PRN (00:43)
[2024-02-26] MEDS ORDERED: ACETAMINOPHEN 325 MG TAB PO PRN (00:48)
[2024-02-26] MEDS: Heparin IV Adult Wt-Based Low-Dose *NO* INITIAL Bolus Protocol IV STA (01:18)
[2024-02-26 01:21] LABS: Troponin I High Sensitivity 48.3 pg/ml (0-20)
[2024-02-26] MEDS: HEPARIN SODIUM/DEXTROSE 25,000 UNITS/500 ML BAG IV SCH (01:25)
[2024-02-26] MEDS: carvediloL 3.125 MG TAB PO ONE (01:26)
[2024-02-26 01:31] LABS: Thyroid Stimulating Hormone 3.425 uIu/ml (0.300-4.500)
[2024-02-26 07:51] LABS: Basophils # (auto) 0.06 K/uL (0.00-0.20); Basophils % (auto) 1.4 %; Eosinophils # (auto) 0.08 K/uL (0.00-0.50); Eosinophils % (auto) 1.8 %; Hematocrit (blood only) 39.7 % (42.0-52.0); Immature Granulocytes # (auto) 0.01 K/uL (0.01-0.20); Immature Granulocytes % (auto) 0.2 %; Lymphocytes # (auto) 0.53 K/uL (1.20-3.40); Lymphocytes % (auto) 12.1 %; Mean Corpuscular Hemoglobin 29.5 pg (25.0-34.0); Mean Corpuscular Hgb Conc 32.7 g/dL (32.0-36.0); Mean Platelet Volume 10.2 fL (9.4-12.4); Monocytes # (auto) 0.49 K/uL (0.11-0.59); Monocytes % (auto) 11.2 %; Neutrophils % (auto) 73.3 %; Platelet Count 122 K/uL (130-400); RDW Coefficient of Variation 12.9 % (11.5-14.5); RDW Standard Deviation 42.4 fL (36.4-46.3); Red Blood Count 4.41 M/uL (4.70-6.10); White Blood Count 4.37 K/ul (4.8-10.8)
[2024-02-26 08:05] LABS: ANTI-Xa, UFH(UnfractionatedHep 0.33 IU/ml (0.3-0.7)
[2024-02-26 08:08] LABS: INR 2.3 (0.9-1.1); Prothrombin Time 23.6 Seconds (9.0-12.0)
[2024-02-26] MEDS: carvediloL 3.125 MG TAB PO SCH ×2 (08:09→10:55)
[2024-02-26 08:10] LABS: Anion Gap 3 (3-11); BUN Creatinine Ratio 12.5 (10-20); Blood Urea Nitrogen 11 mg/dl (6-23); Calcium 8.8 mg/dl (8.6-10.3); Carbon Dioxide 33 mmol/L (21-32); Chloride 101 mmol/L (98-107); Chol HDL Ratio 2.9 (0-5); Cholesterol 128 mg/dl (0-200); Creatinine Clr Calc Pharmacy 68.6 ml/min; Glucose 108 mg/dl (70-99(Fasting)); HDL Cholesterol 44 mg/dl; LDL Cholesterol Calculated 68 mg/dl; Sodium 137 mmol/L (136-145); Triglycerides 79 mg/dl (0-150); VLDL Cholesterol 16 mg/dl (0-30)
[2024-02-26 08:13] LABS: Troponin I High Sensitivity 66.3 pg/ml (0-20)
--- NOTE | 2024-02-26 08:21 | Cardiology Consultation ---
Date of Consultation February 26, 2024 Assessment & Plan (1) Hypertensive emergency: (2) Elevated troponin: (3) Atrial fibrillation, chronic: (4) H/O mitral valve replacement with mechanical valve: Plan Assessment: 83 year old male presents with intermittent episodes of "chest tightness" and found to be severely hypertensive. Cardiology requested for assessment and recommendations. Plan: 1. Hypertensive emergency: -History of labile HTN with erratic OP follow up and unknown discontinuation of multiple antihypertensive meds with unclear etiology. -Initial BP 257/122, currently 199/99. Continue Coreg 3.125mg PO BID, and Losartan 100mg PO Daily. Start Spironolactone 25mg PO Daily and Amlodipine 5mg PO Daily. Serum electrolytes reviewed prior to administration with K of 4.1. -Plan for echocardiogram today to assess overall structure and function including progression of known valvular disease, and for any wall motion abnormality. 2. Elevated Troponin: -mild elevation, flat trend. Continue to trend to peak. Likely secondary to elevated pressures. Echocardiogram pending to assess overall structure and function. We will wait for this before pursuing any further cardiac work up. 3. 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 Awaiting echo to assess current function. Last known echo dates back to 03/2022 obtained from [facility] system noted below: Interpretation Summary The examination is adequate to evaluate the referral indication. Rate controlled atrial fibrillation was present during the echocardiogram. The LV wall thickness is mildly increased (concentric). The left ventricular wall motion is normal. Calculated LV ejection Fraction = 60% (three dimensional volumes). Severe biatrial enlargement is present. The aortic valve is moderately calcified. Mild aortic valve stenosis is present. Mild aortic valve regurgitation is present. is a mitral valve bileaflet disc (St. Chaitanya type) mechanical prosthesis present. Mitral valve prosthetic regurgitation is not assessed due to acoustic shadowing from the prosthesis. The mean diastolic gradient across the mechanical mitral valve prosthesis is 5.7 millimeters Hg which is stable compared to prior study dated 02/10/2017. Moderate to severe tricuspid regurgitation is present. Moderate pulmonary hypertension is present. The pulmonary artery systolic pressure is estimated be 53 millimeters Hg. The aortic root is moderately enlarged, 4.7 cm. The proximal ascending thoracic aorta is mildly enlarged, 4.2 cm. Compared to the report of the prior study dated 02/10/2017, mild aortic stenosis is now present -INR subtherapeutic on admission; however, currently on Heparin gtt as we trend troponin levels. -Further recommendations pending echo. Case has been discussed with Dr. Humphreys. Further recommendations regarding plan of care as per his assessment. I spent a total of 40 minutes on the date of service in preparation, delivery, documentation of the care provided to the patient excluding any time spent in the performance of separately billed services. MARIUSZ Taylor [facility] Cardiology [facility] Supervising Physician Co-Signing Physician Notes Attending attestation: Case reviewed with the advanced practitioner. I have personally performed a history and physical examination on the patient. I have reviewed the advanced practitioner's documentation on the date of service referenced in note, and I agree with, and take responsibility for the plan of care. Subjective: Patient notes chest discomfort improved. Exam: Cardiovascular regular rhythm, crisp prosthetic heart valve sounds noted, no edema Neurologic: No focal deficits Data: EKG performed 02/25/2024 revealed atrial fibrillation at [address] changes Repeat tracing performed 02/26/2024 at 7:34 AM reveals atrial fibrillation at 57 bpm, T wave inversions noted in the inferior lateral leads which are somewhat more prominent than noted in 2019 Impression/ Plan: Hypertensive urgency -He has been weaned from nicardipine infusion -Continue losartan 100 mg daily -Add back carvedilol 3.25 mg by mouth twice daily. He had a dose of just after 1 AM and had sinus bradycardia down to the 30s in the lead python developer hours this morning during sleep but I think it is reasonable to resume this medication while the patient is on the pvc monitor to see if it is a feasible medication as an outpatient. -Start spironolactone 25 mg daily, amlodipine 5 mg daily, carvedilol. All 3 of these medications are to be administered now, discussed with nursing, the medications just arrived. Goal INR is 2.5-3.5 for this prosthesis. Most recent INR is 2.3. Continue heparin bridge. Resume Coumadin. I spent a total of 20 minutes coordinating, documenting, and providing care for this patient excluding time spent in the performance of separately billed services or time spent by another provider. 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 Patient had reported multiple episodes of chest pain, substernal in nature non-radiating throughout the day. Further discussion reveals that he has been having these symptoms of upwards of a month. Patient had not been seen by cardiology since 2021 and his home medication list does not show many of the anti-hypertensive therapies that he had been on at that time including Amlodipine and Clonidine, and even hydralazine at one point. No documentation found to support why these meds were discontinued or if patient had self-discontinued. Upon seeing patient today, he is resting comfortably in bed. Nicardipine gtt had been discontinued prior to patient arriving to his room from the ER. Systolic pressures are ranging 205-213mmHg 30 minutes after receiving his AM Losartan. He is asymptomatic at this time. Denies any recurrence of chest pain, pressure, palpitations, no shortness of breath, PND, pre-syncope, syncope or edema. When asked what helped his episodes at him, he reports rolling over onto his left side seemed to stop the chest discomfort. EKG on admission A-fib rate 77bpm No acute ST-T wave changes. Repeat EKG this AM A-fib with slow ventricular response rate 57. Noted T wave inversion in leads III and V6. Chest xray negative Electrolytes WNL High sensitivity troponin 42.8/48.3/66.3 Echocardiogram pending Last seen by [facility] Cardiology 10/[address] Milan Allergies Allergy/AdvReac Type Severity Reaction Status Date / Time verapamil AdvReac Intermediate bradycardia Verified 02/26/24 04:14 allopurinol AdvReac Mild COUGH Verified 07/28/20 10:00 lisinopril AdvReac Mild COUGH Verified 07/28/20 10:00 Home Medications Medication Instructions Recorded Confirmed Type acetaminophen 500 mg tablet 1,000 mg (2 x 500 mg) PO Q8 #100 02/16/19 02/26/24 Rx tabs losartan 100 mg tablet 100 mg PO DAILY 02/26/24 02/26/24 History warfarin 2.5 mg tablet 2.5 mg PO DAILY 02/26/24 02/26/24 History Patient History Medical History (Updated 02/26/24 @ 10:31 by MARIUSZ Taylor) 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 S/P valve replacement with [facility] Chaitanya. Atrial fibrillation, chronic On Warfarin GI bleed 2016 AFTER COLONOSCOPY (Coumadin was not held, had severe post-op bleed after polyp removal) Jaw fracture WIRED IN THE 60'S, no residual difficulties. Transient ischemic attack (TIA) "A COUPLE OF MILD STROKES" LAST ONE OVER 1 YEAR AGO Hypertension Cerebrovascular disease "midbrain ischemic stroke Mar 2016" Anemia Surgical History History of cataract surgery RT/LEFT History of cholecystectomy Hx of transurethral resection of prostate GREENLIGHT LASER TREATMENT History of esophagogastroduodenoscopy (EGD) History of colonoscopy History of herniorrhaphy History of surgery PEG TUBE INSERTION/REMOVAL 1998 DURING RADIATION TX FOR ORAL CANCER History of tooth extraction History of tonsillectomy History of cardiac cath 1994 NO STENTS Family History Unknown No family history of adverse response to anesthesia Social History Smoking Status: Never smoker Second Hand Exposure: No; Do You Dip or Chew Tobacco: No; Hx Alcohol Use: No Hx Substance Use: No Preferred Language: Nepalese Communication Ability: Effective Product Development Technician Required: No Beliefs That Will Affect Care: None marital status: Current Living Situation: Family Current Living Situation Comment: grandson Other Information That Helps Us Care for You: No Feels Safe at Home: Yes Safety Concerns: Feels Safe At This Time Assistive Devices: Glasses Review of Systems Review of Systems: All systems reviewed & are unremarkable except as noted in HPI & below Physical Exam Constitutional: well developed and + thin; no acute distress and not ill appearing Neck: normal visual inspection and trachea midline Respiratory: normal respiratory effort; no respiratory distress and no labored breathing Auscultation: lungs clear to auscultation bilaterally; no diminished lung sounds, no crackles, no rales, no rhonchi and no wheezes Cardiovascular: Rate/Rhythm: + irregularly irregular Heart Sounds: normal S1, normal S2 and + murmur (+2/6 systolic murmur) Vessels: dorsalis pedis pulses present; no JVD Extremities: no edema Skin: no rashes, warm and dry Psychiatric: A+Ox3, euthymic affect Results & Data Vital Signs (Past 12 Hours) Vital Signs Temp Pulse Pulse Resp BP BP BP 02/26/24 08:00 36.9 C 66 18 211/123 H 193/110 H 02/26/24 07:08 51 L 02/26/24 06:30 50 L 21 148/66 H 02/26/24 06:06 65 22 02/26/24 05:30 146/77 H 02/26/24 04:57 46 L 17 108/63 02/26/24 04:00 167/98 H 02/26/24 04:00 62 20 167/98 H 02/26/24 03:03 61 23 152/87 H 02/26/24 02:33 77 17 186/113 H 02/26/24 02:06 65 23 203/153 H 02/26/24 01:45 70 25 H 197/111 H 02/26/24 01:18 69 16 175/100 H 02/26/24 01:15 175/100 H 02/26/24 01:00 185/103 H 02/26/24 00:36 88 20 185/103 H 02/26/24 00:27 75 17 179/112 H 02/26/24 00:03 80 17 174/97 H 02/25/24 23:42 67 21 147/99 H 02/25/24 23:24 70 21 170/98 H 02/25/24 23:15 72 24 162/88 H 02/25/24 23:00 86 20 178/106 H 02/25/24 22:45 67 20 169/97 H 02/25/24 22:36 75 21 208/111 H 02/25/24 22:23 02/25/24 22:20 63 22 211/120 H 02/25/24 22:10 59 L 239/120 H 02/25/24 21:32 75 267/131 H 02/25/24 21:25 74 12/29/24 20:56 37 C 76 17 257/122 H Pulse Ox O2 Del Method 02/26/24 08:00 94 Room Air 02/26/24 07:08 02/26/24 06:30 93 02/26/24 06:06 92 02/26/24 05:30 02/26/24 04:57 93 02/26/24 04:00 02/26/24 04:00 95 02/26/24 03:03 93 02/26/24 02:33 95 02/26/24 02:06 94 02/26/24 01:45 02/26/24 01:18 95 Room Air 02/26/24 01:15 02/26/24 01:00 02/26/24 00:36 97 Room Air 02/26/24 00:27 93 Room Air 02/26/24 00:03 96 Room Air 02/25/24 23:42 94 Room Air 02/25/24 23:24 95 Room Air 02/25/24 23:15 96 Room Air 02/25/24 23:00 95 Room Air 02/25/24 22:45 95 Room Air 02/25/24 22:36 95 Room Air 02/25/24 22:23 94 Room Air 02/25/24 22:20 94 02/25/24 22:10 95 02/25/24 21:32 94 Room Air 02/25/24 21:25 02/25/24 20:56 95 Room Air Laboratory Results Cardiac Enzymes 02/25/24 02/26/24 02/26/24 Range/Units 21:12 00:10 07:25 AST 13 (13-39) U/L Troponin I High Sens 42.8 H 48.3 H 66.3 H* D (0-20) pg/ml B-Natriuretic Peptide 285 H (0-100) pg/ml Coagulation 02/25/24 02/26/24 Range/Units 21:12 07:25 PT 23.1 H 23.6 H (9.0-12.0) Seconds B-Natriuretic Peptide 285 H (0-100) pg/ml Lipids 02/26/24 Range/Units 07:25 Triglycerides 79 (0-150) mg/dl Cholesterol 128 (0-200) mg/dl HDL Cholesterol 44 mg/dl Cholesterol/HDL Ratio 2.9 (0-5) CBC 02/25/24 02/26/24 Range/Units 21:12 07:25 WBC 3.94 L 4.37 L (4.8-10.8) K/ul RBC 4.84 4.41 L (4.70-6.10) M/uL Hgb 14.5 13.0 L (14.0-18.0) g/dl Hct 43.7 39.7 L (42.0-52.0) % Plt Count 143 122 L (130-400) K/uL Neut # (Auto) 2.51 3.20 (1.40-6.50) K/uL Lymph # (Auto) 0.87 L 0.53 L (1.20-3.40) K/uL Kidder # (Auto) 0.40 0.49 (0.11-0.59) K/uL Eos # (Auto) 0.11 0.08 (0.00-0.50) K/uL Baso # (Auto) 0.04 0.06 (0.00-0.20) K/uL Comprehensive Metabolic Panel 02/25/24 02/26/24 Range/Units 21:12 07:25 Sodium 138 137 (136-145) mmol/L Potassium 4.1 TNP (3.5-5.1) mmol/L Chloride 101 101 (98-107) mmol/L Carbon Dioxide 32 33 H (21-32) mmol/L BUN 13 11 (6-23) mg/dl Creatinine 0.97 0.88 (0.6-1.4) mg/dl Glucose 110 H 108 H (70-99(Fasting)) mg/dl Calcium 9.5 8.8 (8.6-10.3) mg/dl AST 13 (13-39) U/L ALT 6 L (7-52) U/L Alkaline Phosphatase 116 H (34-104) U/L Total Protein 8.1 (6.0-8.3) gm/dl Albumin 4.5 (3.4-5.0) gm/dl Intake and Output 02/25/24 02/26/24 02/26/24 22:59 06:59 14:59 Intake Total 12.5 / 39.583 27.083 / 39.583 136.333 / 136.333 Balance 12.5 / 39.583 27.083 / 39.583 136.333 / 136.333 Intake: IV 12.5 / 39.583 27.083 / 39.583 136.333 / 136.333 Heparin Sodium/Dextrose 25,000 136.333 / 136.333 units In 500 ml @ 1,000 UNITS/ HR 20 mls/hr IV .Q24H [facility] Rx#: [id number] niCARdipine 25 mg In Sodium 12.5 / 39.583 27.083 / 39.583 Chloride 0.9% 240 ml @ 5 MG/HR 50 mls/hr IV .Q5H [facility] Rx#: [id number] Other: Weight 89.7 kg Weight Measurement Method Chair Scale
[2024-02-26] MEDS: LOSARTAN POTASSIUM 50 MG TAB PO SCH (08:43)
[2024-02-26] MEDS: DOCUSATE SODIUM 100 MG CAP PO SCH (08:44)
[2024-02-26 09:16] LABS: Estimated Average Glucose 111 mg/dl; Hemoglobin A1C 5.5 % (4.5-5.6)
--- NOTE | 2024-02-26 09:24 | Electrocardiogram Report ---
Test Reason : Blood Pressure : */* mmHG Vent. Rate : 77 BPM Atrial Rate : * BPM P-R Int : * ms QRS Dur : 112 ms QT Int : 404 ms P-R-T Axes : * 73 33 degrees QTcB Int : 457 ms Atrial fibrillation Abnormal ECG When compared with ECG of 23-Jul-2018 08:36, Atrial fibrillation has replaced Junctional rhythm Vent. rate has increased by 29 bpm Confirmed by Alicia Plasencia (Isac) on 02/26/2024 9:24:12 AM Referred By: REFERRED SELF Confirmed By: Alicia Plasencia
[2024-02-26] MEDS: SPIRONOLACTONE 25 MG TAB PO ONE (10:54)
--- NOTE | 2024-02-26 10:54 | Electrocardiogram Report ---
Test Reason : Blood Pressure : */* mmHG Vent. Rate : 57 BPM Atrial Rate : * BPM P-R Int : * ms QRS Dur : 100 ms QT Int : 474 ms P-R-T Axes : * 104 -21 degrees QTcB Int : 461 ms Atrial fibrillation with slow ventricular response Rightward axis T wave abnormality, consider inferior ischemia Abnormal ECG When compared with ECG of 25-Feb-2024 21:09, (unconfirmed) T wave inversion now evident in Inferior leads T wave inversion now evident in Lateral leads Confirmed by Tobias Palacio ([id number]) on 02/26/2024 10:54:13 AM Referred By: REFERRED SELF Confirmed By: Tobias Palacio
[2024-02-26] MEDS: amLODIPine BESYLATE 5 MG TAB PO SCH (10:55)
[2024-02-26] MEDS: NITROGLYCERIN 2% OINTMENT 30GM TUBE EXT SCH (14:32)
--- NOTE | 2024-02-26 15:23 | Hospitalist Progress Note ---
Date of Service February 26, 2024 Assessment & Plan (1) Hypertensive crisis: Plan: Hypertensive Urgency H/O Labile hypertension Chest pain, troponin elevation likely demand ischemia secondary to above --CXR:Normal chest x-ray. -- Troponin slightly trending down --ECHO: Moderate concentric LVH. Left ventricle wall motion is normal. EF 55 to 60%. Bileaflet([facility] Chaitanya) mechanical prosthesis. Diastolic gradient across the prosthesis 3.4 mmHg. Mild valvular aortic stenosis. Aortic root is severely enlarged with diameter of 4.95 cm. Aortic root is normal in size. Severe pulmonary hypertension is present. The pulmonary artery systolic pr essure is estimated to be 65 mmHg. --Weaned off of nicardipine infusion due to labile blood pressure --Continue losartan 100 mg daily --Started back on carvedilol 3.25 mg twice a day --Also started on spironolactone 25 mg daily, amlodipine 5 mg daily. -- Monitor blood pressure closely --Appreciate cardiology input: Medication adjustments as above Subtherapeutic INR H/O mechanical Mitral valve replacement Target INR 2.5-3.5 INR 2.3 today Continue IV heparin bridge Adjust Coumadin dose as needed Patient will need follow-up with Coumadin clinic on discharge Atrial fibrillation Rate controlled Started on Coreg Anticoagulation as above Monitor Chronic diastolic heart failure Echo as above Not on diuretics at home Started on Aldactone Monitor volume status Other chronic conditions: Valvular heart disease (mild /MR/moderate to severe TR) Pulmonary hypertension CVA--currently not on statin. On anticoagulation as above Right tonsillar cancer S/P surgery, chemoradiation, in remission BPH S/P surgery H/O Prediabetes, hemoglobin A1c of 6.1 from 2019; updated A1c 5.5 DVT Px: IV heparin Coumadin bridge Code Status Full code Disposition PT OT prior to discharge Admission and Anticipated Discharge Date Admission Date: February 25, 2024 Subjective Patient is seen and examined at bedside Reports having mild left-sided chest discomfort Discussed with cardiology today Blood pressure very labile Denies any dyspnea, nausea, vomiting, abdominal pain Review of Systems Review of Systems: All systems reviewed & are unremarkable except as noted in Subjective Physical Exam Physical Exam: Physical Exam: Vitals signs as noted above General Appearance:Moderately built and nourished, no apparent distress Head: normocephalic, Atraumatic Eyes: normal inspection, EOMI Neck: supple, Trachea midline Respiratory/Chest: Normal breath sounds, CTA, No accessory muscle use Cardiovascular: Irregularly irregular, +murmur Abdomen/GI:Soft, Non tender, Bowel sounds present Extremities/Musculoskeletal:normal inspection, no edema Neurologic/Psych:AAOX3, grossly no focal neurological deficits Skin: normal color, warm Results & Data Results & Data Vital Signs (Past 12 Hours) Vital Signs Temp Pulse Pulse Pulse Resp BP BP 02/26/24 14:32 59 L 20 189/109 H 02/26/24 12:13 61 24 175/85 H 02/26/24 11:30 63 16 229/113 H 02/26/24 10:58 71 18 02/26/24 10:26 60 24 190/99 H 02/26/24 08:33 66 02/26/24 08:00 36.9 C 66 18 211/123 H 02/26/24 07:08 51 L 02/26/24 06:30 50 L 21 148/66 H 02/26/24 06:06 65 22 02/26/24 05:30 146/77 H 02/26/24 04:57 46 L 17 108/63 02/26/24 04:00 167/98 H 02/26/24 04:00 62 20 167/98 H BP Pulse Ox O2 Del Method 02/26/24 14:32 97 Room Air 02/26/24 12:13 92 Room Air 02/26/24 11:30 98 Room Air 02/26/24 10:58 226/121 H 02/26/24 10:26 92 Room Air 02/26/24 08:33 203/113 H 02/26/24 08:00 193/110 H 94 Room Air 02/26/24 07:08 02/26/24 06:30 93 02/26/24 06:06 92 02/26/24 05:30 02/26/24 04:57 93 02/26/24 04:00 02/26/24 04:00 95 Laboratory Results Short CBC 02/25/24 02/26/24 Range/Units 21:12 07:25 WBC 3.94 L 4.37 L (4.8-10.8) K/ul Hgb 14.5 13.0 L (14.0-18.0) g/dl Hct 43.7 39.7 L (42.0-52.0) % Plt Count 143 122 L (130-400) K/uL BMP 02/25/24 02/26/24 02/26/24 21:12 07:25 08:44 Sodium 138 137 Potassium 4.1 TNP 4.1 Chloride 101 101 Carbon Dioxide 32 33 H BUN 13 11 Creatinine 0.97 0.88 Glucose 110 H 108 H Calcium 9.5 8.8 Liver Function 02/25/24 Range/Units 21:12 Total Bilirubin 2.0 H (0.2-1.0) mg/dl AST 13 (13-39) U/L ALT 6 L (7-52) U/L Alkaline Phosphatase 116 H (34-104) U/L Albumin 4.5 (3.4-5.0) gm/dl Urine 02/25/24 Range/Units 23:00 Urine Color Yellow Urine Appearance Clear (Clear) Urine pH 7.5 (4.5-7.5) Ur Specific Dalton 1.014 (1.000-1.030) Urine Protein 1+ H (Negative) Urine Glucose (UA) Negative (Negative)
[2024-02-26] MEDS: WARFARIN SOD 4 MG TAB PO SCH (15:42)
[2024-02-26] MEDS: MELATONIN 3 MG TAB PO PRN (20:38)
[2024-02-27] MEDS: hydrALAZINE HCL 20 MG/ML VIAL IV ONE (03:19)
[2024-02-27 03:59] LABS: Appearance Urine Cloudy (Clear); Bacteria Urine Automated None Seen (None Seen); Bilirubin Urine 2+ (Negative); Blood Urine Negative (Negative); Cast Urine Automated >20 /lpf (0-2); Color Urine Orange; Glucose Urine UA Negative (Negative); Ketones Urine 1+ (Negative); Leukocyte Esterase Urine 1+ (Negative); Mucus Urine Present (None Prsent); Nitrite Urine Positive (Negative); Protein Urine 1+ (Negative); Specific Gravity Urine 1.025 (1.000-1.030); Urobilinogen Urine Negative (Negative)
--- NOTE | 2024-02-27 04:55 | Communication Note ---
Date of Service: February 27, 2024 Patient woke up disoriented and confused. SBP 180s. UA WBC esterase, nitrate positive AP Delirium Complicated UTI Urine CS, ceftriaxone
[2024-02-27] MEDS: cefTRIAXone SODIUM 2,000 MG/50 ML BAG IV SCH (05:42)
[2024-02-27 06:35] LABS: Hematocrit (blood only) 38.4 % (42.0-52.0); Hemoglobin 12.6 g/dl (14.0-18.0); Mean Corpuscular Hemoglobin 29.6 pg (25.0-34.0); Mean Corpuscular Hgb Conc 32.8 g/dL (32.0-36.0); Mean Corpuscular Volume 90.4 fL (80.0-100.0); Mean Platelet Volume 10.8 fL (9.4-12.4); Platelet Count 148 K/uL (130-400); RDW Standard Deviation 42.9 fL (36.4-46.3); Red Blood Count 4.25 M/uL (4.70-6.10); White Blood Count 5.36 K/ul (4.8-10.8)
[2024-02-27 06:56] LABS: Albumin Globulin Ratio 1.1 (0.9-2); Albumin Level 3.5 gm/dl (3.4-5.0); BUN Creatinine Ratio 13.6 (10-20); Calcium 8.9 mg/dl (8.6-10.3); Creatinine Clr Calc Pharmacy 54.9 ml/min; Globulin 3.1 gm/dl (2.5-4.0); Magnesium 1.8 mg/dl (1.7-2.4); Total Protein 6.6 gm/dl (6.0-8.3)
[2024-02-27 07:00] LABS: ANTI-Xa, UFH(UnfractionatedHep 0.36 IU/ml (0.3-0.7); INR 2.5 (0.9-1.1); Prothrombin Time 24.8 Seconds (9.0-12.0)
[2024-02-27] MEDS: SPIRONOLACTONE 25 MG TAB PO SCH (07:46)
--- NOTE | 2024-02-27 08:50 | Cardiology Progress Note ---
Date of Service February 27, 2024 Assessment & Plan (1) Hypertensive emergency: (2) Elevated troponin: (3) Atrial fibrillation, chronic: (4) H/O mitral valve replacement with mechanical valve: Plan Assessment: 83 year old male presents with intermittent episodes of "chest tig htness" and found to be severely hypertensive. Cardiology requested for assessment and recommendations. Plan: 1. Hypertensive emergency: -History of labile HTN with erratic OP follow up and unknown discontinuation of multiple antihypertensive meds with unclear etiology. -Initial BP 257/122, currently 199/99. Continue Coreg 3.125mg PO BID, and Losartan 100mg PO Daily. Start Spironolactone 25mg PO Daily and Amlodipine 5mg PO Daily. Serum electrolytes reviewed prior to administration with K of 4.1. -Plan for echocardiogram today to assess overall structure and function including progression of known valvular disease, and for any wall motion abnormality. 2. Elevated Troponin: -mild elevation, flat trend. Continue to trend to peak. Likely secondary to elevated pressures. Echocardiogram pending to assess overall structure and function. We will wait for this before pursuing any further cardiac work up. 3. 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 Awaiting echo to assess current function. Last known echo dates back to 03/2022 obtained from [facility] system noted below: Interpretation Summary The examination is adequate to evaluate the referral indication. Rate controlled atrial fibrillation was present during the echocardiogram. The LV wall thickness is mildly increased (concentric). The left ventricular wall motion is normal. Calculated LV ejection Fraction = 60% (three dimensional volumes). Severe biatrial enlargement is present. The aortic valve is moderately calcified. Mild aortic valve stenosis is present. Mild aortic valve regurgitation is present. is a mitral valve bileaflet disc (St. Chaitanya type) mechanical prosthesis present. Mitral valve prosthetic regurgitation is not assessed due to acoustic shadowing from the prosthesis. The mean diastolic gradient across the mechanical mitral valve prosthesis is 5.7 millimeters Hg which is stable compared to prior study dated 02/10/2017. Moderate to severe tricuspid regurgitation is present. Moderate pulmonary hypertension is present. The pulmonary artery systolic pressure is estimated be 53 millimeters Hg. The aortic root is moderately enlarged, 4.7 cm. The proximal ascending thoracic aorta is mildly enlarged, 4.2 cm. Compared to the report of the prior study dated 02/10/2017, mild aortic stenosis is now present -INR subtherapeutic on admission; however, currently on Heparin gtt as we trend troponin levels. -Further recommendations pending echo. 02/27/2024: -Patient feeling well from a cardiac perspective. Blood pressures continue to trend down. -Peak Troponin 66 -Echocardiogram during course of this admission demonstrates preserved LVEF, Mild aortic stenosis, known bileaflet mechanical prothesis mitral valve with normal diastolic gradient. Known severely enlarged aortic root, measurements stable when compared with study from 03/2022 -Continue PO Warfarin s/t A-fib and mechanical MVR -Will stop Nitro paste in favor of starting Imdur 30mg PO Daily. -Continue Losartan 100mg QD, Coreg 3.125mg BID and Amlodipine 5mg BID -Newly diagnosed UTI, continued management per primary team. currently receiving IV Rocephin Case has been discussed with Dr. Humphreys. Further recommendations regarding plan of care as per his assessment. I spent a total of 30 minutes on the date of service in preparation, delivery, documentation of the care provided to the patient excluding any time spent in the performance of separately billed services. MARIUSZ Taylor [facility] Cardiology [facility] Admission and Anticipated Discharge Date Admission Date: February 25, 2024 Supervising Physician Co-Signing Physician Notes Attending attestation: Case reviewed with the advanced practitioner. I have personally performed a history and physical examination on the patient. I have reviewed the advanced practitioner's documentation on the date of service referenced in note, and I agree with, and take responsibility for the plan of care. Blood pressure improved. Continue losartan 100 mg daily, carvedilol 3.125 mg twice daily, spironolactone 25 mg daily, amlodipine 5 mg daily, isosorbide mononitrate 30 mg daily. INR therapeutic at 2.5, continue Coumadin. I spent a total of 20 minutes coordinating, documenting, and providing care for this patient excluding time spent in the performance of separately billed services or time spent by another provider. Sergio Humphreys DO Subjective 02/27/2024: Patient seen and examined in follow up today. Feeling well from a cardiac perspective. Denies any recurrence of chest pain, no chest pressure, no palpitations, no shortness of breath, no near syncope, syncope and no edema. Would really like to go home. Labs, vitals, diagnostics, telemetry and documentation reviewed. Telemetry reviewed showing A-fib rates 50's to 60's. no acute events overnight. Blood pressures continue to trend down Review of Systems Review of Systems: All systems reviewed & are unremarkable except as noted in HPI & below Physical Exam Constitutional: well developed and + thin; no acute distress and not ill appearing Neck: normal visual inspection and trachea midline Respiratory: normal respiratory effort; no respiratory distress and no labored breathing Auscultation: lungs clear to auscultation bilaterally; no diminished lung sounds, no crackles, no rales, no rhonchi and no wheezes Cardiovascular: Rate/Rhythm: + irregularly irregular Heart Sounds: normal S1, normal S2 and + murmur (+2/6 systolic murmur) Vessels: dorsalis pedis pulses present; no JVD Extremities: no edema Skin: no rashes, warm and dry Psychiatric: A+Ox3, euthymic affect Results & Data Vital Signs (Past 12 Hours) Vital Signs Temp Pulse Resp BP Pulse Ox O2 Del Method 02/27/24 07:29 37.0 C 70 20 158/85 H 94 Room Air 02/27/24 03:05 36.8 C 64 19 188/87 H 95 Room Air 02/26/24 22:15 37.1 C 56 L 18 176/80 H 94 Room Air Laboratory Results Cardiac Enzymes 02/26/24 02/26/24 02/27/24 Range/Units 12:54 18:50 05:45 AST 12 L (13-39) U/L Troponin I High Sens 60.9 H* 60.2 H* (0-20) pg/ml Coagulation 02/27/24 Range/Units 05:45 PT 24.8 H (9.0-12.0) Seconds CBC 02/27/24 Range/Units 05:45 WBC 5.36 (4.8-10.8) K/ul RBC 4.25 L (4.70-6.10) M/uL Hgb 12.6 L (14.0-18.0) g/dl Hct 38.4 L (42.0-52.0) % Plt Count 148 (130-400) K/uL Comprehensive Metabolic Panel 02/26/24 02/27/24 Range/Units 08:44 05:45 Sodium 136 (136-145) mmol/L Potassium 4.1 4.0 (3.5-5.1) mmol/L Chloride 99 (98-107) mmol/L Carbon Dioxide 31 (21-32) mmol/L BUN 15 (6-23) mg/dl Creatinine 1.10 (0.6-1.4) mg/dl Glucose 111 H (70-99(Fasting)) mg/dl Calcium 8.9 (8.6-10.3) mg/dl AST 12 L (13-39) U/L ALT 4 L (7-52) U/L Alkaline Phosphatase 86 (34-104) U/L Total Protein 6.6 (6.0-8.3) gm/dl Albumin 3.5 (3.4-5.0) gm/dl Intake and Output 02/26/24 02/27/24 02/27/24 22:59 06:59 14:59 Intake Total 217.333 / 888.666 135 / 888.666 153.333 / 153.333 Balance 217.333 / 388.666 135 / 388.666 153.333 / 153.333 Intake: IV 217.333 / 488.666 135 / 488.666 153.333 / 153.333 Heparin Sodium/Dextrose 25,000 217.333 / 438.666 85 / 438.666 153.333 / 153.333 units In 500 ml @ 1,000 UNITS/ HR 20 mls/hr IV .Q24H KIT Rx#: [id number] [id number] SODIUM 2,000 mg In 50 / 50 50 ml @ 100 mls/hr IV Q24H KIT Rx#:[id number] Other: # Unmeasured Voids 1 Weight 89 kg Weight Measurement Method Built in [facility] Diagnostic Findings Echocardiogram 02/26/2024: Moderate concentric LVH LV wall motion is normal LVEF 55-60% bi-leaflet (St-Chaitanya) mechanical prothesis assessment of mitral regurg is technically inadequate to acoustic shadowing from mechanical mitral valve prosthesis Diagnotic gradient across Prosthesis is 3.4mmHg Mild Aortic root severely enlarged 4.9-5.0 cm Severe pulmonary HTN PASP 65mmHg
[2024-02-27] MEDS: ISOSORBIDE MONO EXTENDED REL 30 MG TABCR PO SCH (09:48)
--- NOTE | 2024-02-27 15:23 | Hospitalist Progress Note ---
Date of Service February 27, 2024 Assessment & Plan (1) Hypertensive crisis: Plan: Hypertensive Urgency H/O Labile hypertension Chest pain, troponin elevation likely demand ischemia secondary to above --CXR:Normal chest x-ray. -- Troponin slightly trending down --ECHO: Moderate concentric LVH. Left ventricle wall motion is normal. EF 55 to 60%. Bileaflet([employer] Chaitanya) mechanical prosthesis. Diastolic gradient across the prosthesis 3.4 mmHg. Mild valvular aortic stenosis. Aortic root is severely enlarged with diameter of 4.95 cm. Aortic root is normal in size. Severe pulmonary hypertension is present. The pulmonary artery systolic pr essure is estimated to be 65 mmHg. --Weaned off of nicardipine infusion due to labile blood pressure --Continue losartan 100 mg daily --Started back on carvedilol 3.25 mg twice a day --Also started on spironolactone 25 mg daily, amlodipine 5 mg daily. -- Monitor blood pressure closely --Appreciate cardiology input: Medication adjustments as above -- Blood pressure variable, relatively low today Subtherapeutic INR--resume H/O mechanical Mitral valve replacement Target INR 2.5-3.5 INR 2.3>2.5 today Discontinue IV heparin bridge Adjust Coumadin dose as needed Patient will need follow-up with Coumadin clinic on discharge Suspected UTI Urine culture pending Empirically on IV Rocephin Atrial fibrillation Rate controlled Started on Coreg Anticoagulation as above Monitor Chronic diastolic heart failure Echo as above Not on diuretics at home Started on Aldactone Monitor volume status Other chronic conditions: Valvular heart disease (mild /MR/moderate to severe TR) Pulmonary hypertension CVA--currently not on statin. On anticoagulation as above Right tonsillar cancer S/P surgery, chemoradiation, in remission BPH S/P surgery H/O Prediabetes, hemoglobin A1c of 6.1 from 2019; updated A1c 5.5 DVT Px: IV heparin Coumadin bridge Code Status Full code Disposition PT OT prior to discharge Admission and Anticipated Discharge Date Admission Date: February 25, 2024 Subjective Patient is seen and examined at bedside States feeling well today Blood pressure very variable Chest pain resolved Denies any dyspnea, nausea, vomiting, abdominal pain Review of Systems Review of Systems: All systems reviewed & are unremarkable except as noted in Subjective Physical Exam Physical Exam: Physical Exam: Vitals signs as noted above General Appearance:Moderately built and nourished, no apparent distress Head: normocephalic, Atraumatic Eyes: normal inspection, EOMI Neck: supple, Trachea midline Respiratory/Chest: Normal breath sounds, CTA, No accessory muscle use Cardiovascular: Irregularly irregular, +murmur Abdomen/GI:Soft, Non tender, Bowel sounds present Extremities/Musculoskeletal:normal inspection, no edema Neurologic/Psych:AAOX3, grossly no focal neurological deficits Skin: normal color, warm Results & Data Results & Data Vital Signs (Past 12 Hours) Vital Signs Temp Pulse Pulse Resp BP BP Pulse Ox 02/27/24 14:37 51 L 02/27/24 11:18 36.9 C 60 18 103/54 L 92 02/27/24 07:29 37.0 C 70 20 158/85 H 94 O2 Del Method 02/27/24 14:37 02/27/24 11:18 Room Air 02/27/24 07:29 Room Air Laboratory Results Short CBC 02/27/24 Range/Units 05:45 WBC 5.36 (4.8-10.8) K/ul Hgb 12.6 L (14.0-18.0) g/dl Hct 38.4 L (42.0-52.0) % Plt Count 148 (130-400) K/uL BMP 02/27/24 05:45 Sodium 136 Potassium 4.0 Chloride 99 Carbon Dioxide 31 BUN 15 Creatinine 1.10 Glucose 111 H Calcium 8.9 Liver Function 02/27/24 Range/Units 05:45 Total Bilirubin 2.0 H (0.2-1.0) mg/dl AST 12 L (13-39) U/L ALT 4 L (7-52) U/L Alkaline Phosphatase 86 (34-104) U/L Albumin 3.5 (3.4-5.0) gm/dl Urine 02/27/24 Range/Units 03:21 Urine Color [place] Urine Appearance Cloudy A (Clear) Urine pH 5.0 (4.5-7.5) Ur Specific [place] 1.025 (1.000-1.030) Urine Protein 1+ H (Negative) Urine Glucose (UA) Negative (Negative)
[2024-02-27] MEDS: WARFARIN SOD 5 MG TAB PO SCH (16:34)
[2024-02-28 04:23] LABS: Hemoglobin 12.2 g/dl (14.0-18.0); Mean Corpuscular Volume 90.9 fL (80.0-100.0); Mean Platelet Volume 10.2 fL (9.4-12.4); Platelet Count 146 K/uL (130-400); RDW Coefficient of Variation 12.9 % (11.5-14.5); RDW Standard Deviation 42.5 fL (36.4-46.3); Red Blood Count 4.07 M/uL (4.70-6.10); White Blood Count 4.71 K/ul (4.8-10.8)
[2024-02-28 04:40] LABS: BUN Creatinine Ratio 14.3 (10-20); Calcium 8.8 mg/dl (8.6-10.3); Creatinine Clr Calc Pharmacy 47.9 ml/min; Magnesium 1.9 mg/dl (1.7-2.4)
[2024-02-28 04:44] LABS: ANTI-Xa, UFH(UnfractionatedHep < 0.10 IU/ml (0.3-0.7); INR 3.5 (0.9-1.1); Prothrombin Time 34.4 Seconds (9.0-12.0)
[2024-02-28 07:11] VITALS: RESP 19
[2024-02-28 11:22] VITALS: BP 143/71; TEMP 98.2; O2SAT 94
--- NOTE | 2024-02-28 14:08 | Discharge Summary ---
Discharge Summary Date of Service February 28, 2024 Principal Dx & Hospital Course #1 = Principal Diagnosis (1) Hypertensive crisis: Mr. Matson is an 83 year old man with medical history significant for chronic diastolic heart failure (EF 60%, TTE 2022), A-fib/mechanical AVR on Coumadin, valvular heart disease (mild /MR/moderate to severe TR), pulmonary hypertension, labile hypertension as per records, CVA, right tonsillar cancer status post surgery status post chemoradiation, BPH status post surgery, prediabetes who was admitted for hypertensive crisis. Patient with SBP up to 250s on admission and placed on nicardipine drip. Patient weaned off drip and started on multiple antihypertensive regimen under cardiology consultation. #Hypertensive emergency #H/O Labile hypertension #Elevated troponin likely demand ischemia secondary to above --ECHO: Moderate concentric LVH. Left ventricle wall motion is normal. EF 55 to 60%. Bileaflet(Saint Chaitanya) mechanical prosthesis. Diastolic gradient across the prosthesis 3.4 mmHg. Mild valvular aortic stenosis. Aortic root is severely enlarged with diameter of 4.95 cm. Aortic root is normal in size. Severe pulmonary hypertension is present. The pulmonary artery systolic pressure is estimated to be 65 mmHg. --Weaned off of nicardipine infusion due to labile blood pressure --Continue losartan 100 mg daily --Started back on carvedilol 3.25 mg twice a day --Started on Imdur 30mg daily --Started on spironolactone 25 mg daily, amlodipine 5 mg daily. Cardiology follow up #Subtherapeutic INR resolved #mechanical Mitral valve replacement Target INR 2.5-3.5 INR 2.3>2.5 today Discontinue IV heparin bridge Adjust Coumadin dose as needed Patient will need follow-up with Coumadin clinic on discharge #Suspected UTI Urine culture, culture <100U and no symptoms reported Empirically on IV Rocephin x 2 days #Atrial fibrillation Rate controlled Started on Coreg Anticoagulation as above #Chronic diastolic heart failure Echo as above Not on diuretics at home Started on Aldactone Monitor volume status Other chronic conditions: Valvular heart disease (mild /MR/moderate to severe TR) Pulmonary hypertension CVA--currently not on statin. On anticoagulation as above Right tonsillar cancer S/P surgery, chemoradiation, in remission BPH S/P surgery H/O Prediabetes, hemoglobin A1c of 6.1 from 2019; updated A1c 5.5 Notes For Next Care Provider -Cardiology follow up -Close BP monitoring Medication Changes From Visit --Continue losartan 100 mg daily --Started back on carvedilol 3.25 mg twice a day --Started on Imdur 30mg daily --Started on spironolactone 25 mg daily, amlodipine 5 mg daily. Admission HPI Per Admitting Provider History obtained from patient, family, and records. 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 Last confinement 2018 under Orthopedics service for elective left total knee arthroplasty. Postop anemia requiring transfusion. Patient noted tightness over his heart without radiation. No SOB, no cough, no headache symptoms. Compliant with home medications. Denies OTC NSAID intake or unusual stress at home. Last BP check at home was about the last month, SBP 140s as per son. Last [facility] outpatient Cardiology visit was October 2021. Patient reestablishing care after labs and follow-ups as per note. SBP 180s during visit. Low-dose amlodipine recommended for BP control. Medication not to be titrated higher given past history of peripheral edema with higher dosage as per provider note. Patient not aware of need for regular specialist follow-up as per family. Patient sees PCP every 6 months as per family. SBP noted to be 250s at home. Highest SBP of 260s documented at the ER. Nicardipine drip and hydralazine administered at the ER. SBP 140s. Nicardipine drip stopped at the ER. Medical History as above Surgical History : Jaw surgery, dental surgery, cholecystectomy, hernia repair, tonsillectomy, mechanical MVR Family History : Heart disease, DM, stroke Personal/Social history : Non-smoker, no EtOH intake, disabled prior to group home Admission Exam Per Admitting Provider GENERAL: Comfortable, slightly hard of hearing, mild dysarthria (chronic as per family), no respiratory distress SKIN: Normal color, warm HEENT: Alopecia, bespectacled, pink palpebral conjunctivae, no ptosis, dry buccal mucosa NECK : Supple, no tenderness CHEST : Decreased breath sounds, no tenderness HEART : Irregular, mechanical murmur ABDOMEN: Some distention, nontender EXTREMITIES : Minimal LE swelling without tenderness, no other conspicuous deformities noted NEUROLOGIC : Coherent, no facial asymmetry, chronic dysarthria as per family, slightly hard of hearing, gait and stance not assessed Discharge Exam Constitutional WD/WN, vitals as above Respiratory normal respiratory effort, lungs clear to auscultation Cardiovascular click/plop, RRR Gastrointestinal (Abdomen) normal bowel sounds, soft, nontender, no hepatosplenomegaly Updated Medication List Medication Instructions Recorded Confirmed Type acetaminophen 500 mg tablet 1,000 mg (2 x 500 mg) PO Q8 #100 02/16/19 02/26/24 Rx tabs losartan 100 mg tablet 100 mg PO DAILY 02/26/24 02/26/24 History warfarin 2.5 mg tablet 2.5 mg PO DAILY 02/26/24 02/26/24 History amlodipine 5 mg tablet (Norvasc) 5 mg PO QAM 30 days #30 tabs 02/28/24 Rx carvedilol 3.125 mg tablet 3.125 mg PO BIDM 60 days #120 tabs 02/28/24 Rx isosorbide mononitrate 30 mg 30 mg PO QAM 30 days #30 tabs 02/28/24 Rx tablet,extended release 24 hr spironolactone 25 mg tablet 25 mg PO QAM 30 days #30 tabs 02/28/24 Rx Hospital Stay Data Consultations 02/25/24 22:44 ED Decision to Admit Stat 02/25/24 22:55 ED Decision to Admit Stat 02/26/24 01:32 Consult Cardiology Routine Pending Results Patient Have Any Pending Studies at Discharge: No Discharge Instructions Given to Patient (Per Discharging Provider) You were admitted for chest pain and found to have really high blood pressure (hypertensive crisis) You were seen by [facility] Specialist who recommended the following Continue losartan 100 mg daily Start carvedilol 3.125 mg twice daily Start spironolactone 25 mg daily Start amlodipine 5 mg daily Start isosorbide mononitrate 30 mg daily. Total Time Total Time Spent Total Time Spent (In Minutes): 35
[2024-02-28 14:28] VITALS: PULSE 64
[2024-02-28] MEDS ORDERED: WARFARIN SOD 2 MG TAB PO SCH (16:00)
[2024-02-28] MEDS ORDERED: WARFARIN SOD 3 MG TAB PO SCH (16:00)
== END 2024-02-28 14:49 | disposition home or self-care (01) | DRG 305 ==
LOC: ED 20:45 → EDINP 23:59 → SUATTDRO 23:59 → 1E 02-26 01:32 → 2S 02-26 22:06
DX: Z86.73 Personal history of transient ischemic attack (TIA), and cerebral infarction without residual deficits; N40.0 Benign prostatic hyperplasia without lower urinary tract symptoms; I50.32 Chronic diastolic (congestive) heart failure; R79.1 Abnormal coagulation profile; Z88.8 Allergy status to other drugs, medicaments and biological substances; I24.89 Other forms of acute ischemic heart disease; I16.1 Hypertensive emergency; Z79.01 Long term (current) use of anticoagulants; N39.0 Urinary tract infection, site not specified; Z79.899 Other long term (current) drug therapy; I08.3 Combined rheumatic disorders of mitral, aortic and tricuspid valves; R73.03 Prediabetes; Z95.2 Presence of prosthetic heart valve; Z85.29 Personal history of malignant neoplasm of other respiratory and intrathoracic organs; Z83.3 Family history of diabetes mellitus; I25.2 Old myocardial infarction; Z82.3 Family history of stroke; Z82.49 Family history of ischemic heart disease and other diseases of the circulatory system; I27.20 Pulmonary hypertension, unspecified; I48.20 Chronic atrial fibrillation, unspecified